=== PATIENT | female | born 1980 | race Two or more races ===

== ENCOUNTER 2021-06-14 19:15 | Inpatient (IN) | payer OTHER ==
[2021-06-14] VITALS (8 sets, daily range): BP systolic 147–163; BP diastolic 9–90
[~2021-06-14] VITALS: Ht 165.1 cm; Wt 154.2 kg
[2021-06-14] MEDS: STERILE WATER for RESP 1,000 ML BAG. INH PRN (19:30)
--- NOTE | 2021-06-14 19:30 | NUR ---
Patient admitted to room 102 at 1900 via gurney accompanied by flight RNs x2; patient transferred from [facility] ED. Patient's primary language is Slovak but does understand and speak some Danish. Patient is alert/orientedx4, denies pain but does complain of shortness of breath with rest and activity. O2 saturation mid 80's on 100% NRB at 15L with respiratory rate 40's; flight RNs stated patient was saturating mid 90's during the flight and ambulance travel. Patient has oconnell catheter which was placed at previous hospital. Called patient's sister Gifty to update on condition and review past medical history. Since patient is so tachypic at rest, all admission history obtained from previous hospital notes and sister. Patient was able to state that she had not received Covid vaccine and per hospital notes, patient had tested positive for Covid approximately one week ago. Patient oriented to ICU routine, room, Nursing call light, TV/Bed control, diet, activity (BR), and POC. Patient does nod in understanding. Dr Bocanegra at bedside on admission. See admission information and assessment.
[2021-06-14] MEDS ORDERED: PIP/TAZO PER PHARMACY MC PRN (21:30)
[2021-06-14] MEDS: KETOROLAC 30 MG/ML VIAL. IVP SCH (21:32)
[2021-06-14] MEDS: methylPREDNISolone SOD SUCC PF 125 MG/2 ML VIAL. IV SCH (21:46)
[2021-06-14] MEDS ORDERED: PIPERACILLIN/TAZOBACTAM 3.375 GM in IV NORMAL SALINE 50ML 50 ML IV ONE (22:00)
[2021-06-14] MEDS ORDERED: PIPERACILLIN/TAZOBACTAM 3.375 GM in IV NORMAL SALINE 50ML 50 ML IV SCH (22:00)
[2021-06-14 22:10] LABS: BASO % 1 % (0-3); EOS % 0 % (0-3); HEMATOCRIT 33.4 % (36.0-47.0); HEMOGLOBIN 11.1 g/dL (12.0-15.5); LYMPH # 0.7 x10^3/uL (1.0-4.8); LYMPH % 11 % (24-48); MEAN CORPUSCULAR HEMOGLOBIN 24 pg (25-35); MEAN CORPUSCULAR HGB CONC 33 g/dL (31-37); MEAN CORPUSCULAR VOLUME 73 fL (79-100); MONO # 0.4 x10^3/uL (0.0-1.1); MONO % 6 % (0-9); NEUT # 5.1 x10^3/uL (1.8-7.7); NEUT % 83 % (31-73); PLATELET COUNT 366 x10^3/uL (140-400); RED BLOOD COUNT 4.59 x10^6/uL (3.50-5.40); RED CELL DISTRIBUTION WIDTH 16.2 % (11.5-14.5); WHITE BLOOD COUNT 6.2 x10^3/uL (4.0-11.0)
[2021-06-14] MEDS ORDERED: SENNOSIDES 8.6 MG TABLET PO PRN (22:15)
[2021-06-14] MEDS ORDERED: DOCUSATE SODIUM 100 MG CAPSULE. PO PRN (22:15)
[2021-06-14] MEDS ORDERED: ONDANSETRON PF 4 MG/2 ML VIAL. IVP PRN (22:15)
[2021-06-14] MEDS ORDERED: DEXTROSE 50% 25 GM / 50ML DISP.SYRIN. IV PRN (22:15)
[2021-06-14] MEDS ORDERED: PROCHLORPERAZINE 10 MG/2 ML VIAL. IV PRN (22:15)
--- NOTE | 2021-06-14 22:16 | PDOC1 ---
History and Physical Date of Service: DOS: DATE: 06/14/21 TIME: 22:11 Chief Complaint: Chief Complain: Shortness of breath History of Present Illness: HPI: Patient is a transfer from [facility] in [facility] 40-year-old female with past medical history of diabetes, hypertension, dyslipidemia and morbid obesity who complains of shortness of breath 1 week ago and went to urgent care and found out that she was positive for Covid. She came in at 5:00 in the morning at [facility] is very hypoxic and was found to be her oxygen saturation was 68% she was put on a nonrebreather 15 L and she was improved to 90 to 93%. Patient is [id number]. Patient is a poor historian. She does not know what kind of medication she takes for her medical history. Past Medical/Surgical History: PMH/PSH: Past medical history of diabetes, hypertension, dyslipidemia and obesity. Allergies: Allergies: Coded Allergies: No Known Drug Allergies (Unverified , 06/14/21) Family History: Family History: Reviewed with no relevant findings. Social History: Social History: Denies alcohol, tobacco or drug abuse. Current Medications: Current Medications Current Medications Methylprednisolone Sodium Succinate (SOLU-Medrol 125MG VIAL) 125 mg Q8HRS IV Last administered on 06/14/21at 21:46; Start 06/14/21 at 22:00 Benzonatate (Tessalon Perle) 100 mg Q6HRS PO ; Start 06/15/21 at 00:00 Ketorolac Tromethamine (Toradol 30mg Vial) 30 mg Q8HRS IVP Last administered on 06/14/21at 21:32; Start 06/14/21 at 22:00; Stop 06/17/21 at 14:01 Piperacillin Sod/ Tazobactam Sod 3.375 gm/Sodium Chloride 50 ml @ 100 mls/hr Q8HRS IV ; Start 06/14/21 at 22:00; Status UNV Albuterol/ Ipratropium (Duoneb) 3 ml QID INH ; Start 06/15/21 at 09:00; Status UNV Albuterol/ Ipratropium (Combivent Respimat 20-100 Mcg) 1 puff RTQID INH ; Start 06/15/21 at 08:00 Sterile Water (WATER for RESP) 1,000 ml CONT PRN INH VIA VAPOTHERM DEVICE; Start 06/14/21 at 21:30 Remdesivir 100 mg/ Sodium Chloride 230 ml @ 460 mls/hr Q24H IV ; Start 06/15/21 at 09:00; Stop 06/23/21 at 09:29 Piperacillin Sod/ Tazobactam Sod (Zosyn Per Pharmacy) 1 each PRN DAILY PRN [facility] SEE COMMENTS; Start 06/14/21 at 21:30 Piperacillin Sod/ Tazobactam Sod 3.375 gm/Sodium Chloride 50 ml @ 100 mls/hr 1X ONCE IV Last administered on 06/14/21at 21:52; Start 06/14/21 at 22:00; Stop 06/14/21 at 22:29 ROS: Review of Systems Review of System REVIEW OF SYSTEMS: GENERAL: Denies weakness SKIN: No bruising, hair changes or rashes. EYES: No blurred, double or loss of vision. NOSE AND THROAT: No history of nosebleeds, hoarseness or sore throat. HEART: No history of palpitations, chest pain or shortness of breath on exertion. LUNGS: Positive for shortness of breath and cough GASTROINTESTINAL: Denies changes in appetite, nausea, vomiting, diarrhea or constipation. GENITOURINARY: No history of frequency, urgency, hesitancy or nocturia. NEUROLOGIC: Denies history of numbness, tingling, or tremor. PSYCHIATRIC: No history of panic, anxiety or depression. ENDOCRINE: No history of heat or cold intolerance, polyuria or polydipsia. EXTREMITIES: Denies joint pain, pain on walking or stiffness. Physical Exam: Vital Signs: Vital Signs Date Time Temp Pulse Resp B/P (MAP) Pulse Ox O2 Delivery O2 Flow Rate FiO2 06/14/21 20:54 98 VAPOTHERM/HFNC 25.0 Physcial Exam: General: Well developed, well nourished, no acute distress, well appearing. Morbidly obese HEENT: Pupils equally round and reactive to light, EOMI, no discharge, normal conjunctiva Neck: Supple, no nuchal rigidity, no JVD, trachea midline, no tenderness Cardiac: RRR, no murmurs, no gallops, no rubs Chest/Lungs: CTAB, no wheeze, no rhonchi, positive for crackles bilaterally Abdomen: soft, non-distended, no guarding, no peritoneal signs, non-tender Back: No tenderness Extremities: no edema, pulses intact, non-tender,capillary refill <3 sec bilateral upper and lower extremities, Neuro: Alert and oriented x 4, no focal deficits, normal speech Labs: Labs: Pending lab draw Images: Images Patient did have CT of her chest that was completed but I do not have final reads of that with her records. Pending review of her records. Assessment/Plan Assessment/Plan Acute hypoxic respiratory failure requiring BiPAP COVID-19 pneumonia Morbid obesity History of diabetes mellitus type 2 History of hypertension Admit to ICU for further management Pulmonology consult Continue IV thiamine and vitamin C IV Solu-Medrol every 8 Pending ferritin, LDH, CRP, D-dimer labs Titrate O2 supplementation to maintain O2 saturation greater than 92% Initiate IV Remdesivir Lovenox for DVT prophylaxis Protonix GI prophylaxis ADA diet Full code Discussed with RN and SW Disposition ICU management as above Surrogate decision maker is the undesignated at this time A total of 50 minutes of critical care time was spent in reviewing chart, labs, and images. Discussed with RN and SW. Justifications for Admission Other Justification Acute hypoxic respiratory failure and Covid pneumonia REENA MORA MD Jun 14, 2021 22:16
[2021-06-14 22:35] LABS: C-REACTIVE PROTEIN 222.5 mg/L (0-3.3)
[2021-06-14 22:36] LABS: ALBUMIN 2.2 g/dL (3.4-5.0); ALBUMIN/GLOBULIN RATIO 0.4 (1.0-1.7); CALCIUM 8.4 mg/dL (8.5-10.1); CREATININE 0.5 mg/dL (0.6-1.0); GFR 136.6; MAGNESIUM 2.3 mg/dL (1.8-2.4); POTASSIUM 3.9 mmol/L (3.5-5.1); TOTAL BILIRUBIN 0.3 mg/dL (0.2-1.0); TOTAL PROTEIN 7.1 g/dL (6.4-8.2)
[2021-06-14] MEDS ORDERED: ENOXAPARIN 40 MG/0.4 ML SYRINGE. SQ SCH (23:00)
[2021-06-14] MEDS: BENZONATATE 100 MG CAPSULE. PO SCH (23:37)
[2021-06-15] VITALS (22 sets, daily range): BP systolic 112–176; BP diastolic 52–86
[2021-06-15] MEDS: STERILE WATER for RESP 1,000 ML BAG. INH PRN ×2 (04:12→15:45)
[2021-06-15] MEDS: BENZONATATE 100 MG CAPSULE. PO SCH ×4 (06:16→23:30)
[2021-06-15] MEDS: methylPREDNISolone SOD SUCC PF 125 MG/2 ML VIAL. IV SCH ×3 (06:16→21:38)
[2021-06-15] MEDS: KETOROLAC 30 MG/ML VIAL. IVP SCH ×3 (06:16→21:38)
[2021-06-15] MEDS: PIPERACILLIN/TAZOBACTAM 3.375 GM in IV NORMAL SALINE 50ML 50 ML IV SCH ×4 (06:17→23:28)
[2021-06-15] MEDS ORDERED: GABA300C18 PO (06:45)
[2021-06-15] MEDS ORDERED: SEMA0.25 SQ (06:45)
[2021-06-15] MEDS ORDERED: METF500T16 PO (06:45)
[2021-06-15] MEDS ORDERED: LISI-517 PO (06:45)
--- NOTE | 2021-06-15 06:55 | PDOC2 ---
Pulmonary Consultation DATE: 06/15/21 TIME: 06:55 COVID-19 pneumonia, acute hypoxic respiratory failure This is a pleasant 40-year-old speaking female who is transferred to [facility] from [facility] for worsening hypoxia. She is a known COVID-19 patient. She has a past medical history of diabetes, hypertension, hyperlipidemia and obesity. While at [facility] she became very hypoxic with oxygen saturations in the low 60s. He was placed on 100% nonrebreather with improved oxygenation to the low 90s. She is overall a very poor historian. We've been asked to see the patient for a pulmonary consultation secondary to acute hypoxic respiratory failure secondary to ARDS/COVID-19 infection. She tested positive for COVID-19 infection approximately 1 week prior to admission at [facility]. He has not received any COVID-19 vaccination. At [facility] she had a CT of chest without contrast which showed multifocal diffusely scattered grass ground opacities infiltrates with within all lobes of the lungs. On examination she is resting comfortably 100% nonrebreather with additional nasal cannula oxygen. She reports shortness of breath, nonproductive cough, generalized malaise and fatigue. She denies any headache, dizziness, abdominal pain, nausea, vomiting, changes in bowel or bladder. Medical History Diabetes type 2, hypertension, hyperlipidemia, obesity, COVID-19 infection Surgical History Denies Medications Current Medications Methylprednisolone Sodium Succinate (SOLU-Medrol 125MG VIAL) 125 mg Q8HRS IV Last administered on 06/15/21at 06:16; Start 06/14/21 at 22:00 Benzonatate (Tessalon Perle) 100 mg Q6HRS PO Last administered on 06/15/21at 06:16; Start 06/15/21 at 00:00 Ketorolac Tromethamine (Toradol 30mg Vial) 30 mg Q8HRS IVP Last administered on 06/15/21at 06:16; Start 06/14/21 at 22:00; Stop 06/17/21 at 14:01 Piperacillin Sod/ Tazobactam Sod 3.375 gm/Sodium Chloride 50 ml @ 100 mls/hr Q8HRS IV ; Start 06/14/21 at 22:00; Status UNV Albuterol/ Ipratropium (Duoneb) 3 ml QID INH ; Start 06/15/21 at 09:00; Status UNV Albuterol/ Ipratropium (Combivent Respimat 20-100 Mcg) 1 puff RTQID INH ; Start 06/15/21 at 08:00 Sterile Water (WATER for RESP) 1,000 ml CONT PRN INH VIA VAPOTHERM DEVICE Last administered on 06/15/21at 04:12; Start 06/14/21 at 21:30 Remdesivir 100 mg/ Sodium Chloride 230 ml @ 460 mls/hr Q24H IV ; Start 06/15/21 at 09:00; Stop 06/23/21 at 09:29 Piperacillin Sod/ Tazobactam Sod (Zosyn Per Pharmacy) 1 each PRN DAILY PRN MC SEE COMMENTS; Start 06/14/21 at 21:30 Piperacillin Sod/ Tazobactam Sod 3.375 gm/Sodium Chloride 50 ml @ 100 mls/hr 1X ONCE IV Last administered on 06/14/21at 21:52; Start 06/14/21 at 22:00; Stop 06/14/21 at 22:29; Status DC Ascorbic Acid (Vitamin C) 3,000 mg TID PO ; Start 06/15/21 at 09:00 Thiamine Mononitrate (Vitamin B-1) 300 mg DAILY PO ; Start 06/15/21 at 09:00 Zinc Sulfate (Orazinc) 220 mg DAILY PO ; Start 06/15/21 at 09:00 Sennosides (Senna) 17.2 mg PRN BID PRN PO CONSTIPATION 1ST CHOICE; Start 06/14/21 at 22:15 Docusate Sodium (Colace) 100 mg PRN DAILY PRN PO HARD STOOLS; Start 06/14/21 at 22:15 Ondansetron HCl (Zofran) 4 mg PRN Q6HRS PRN IVP NAUSEA/VOMITING 1ST CHOICE; Start 06/14/21 at 22:15 Dextrose (Dextrose 50%-Water Syringe) 12.5 gm PRN Q15MIN PRN IV SEE COMMENTS; Start 06/14/21 at 22:15 Acetaminophen (Tylenol) 650 mg PRN Q4HRS PRN PO TEMP OVER 100.4F OR MILD PAIN; Start 06/14/21 at 22:15 Enoxaparin Sodium (Lovenox 40mg Syringe) 40 mg Q24H SQ Last administered on 06/14/21at 23:22; Start 06/14/21 at 23:00 Prochlorperazine Edisylate (Compazine) 10 mg PRN Q6HRS PRN IV NAUSEA/VOMITING 2ND CHOICE; Start 06/14/21 at 22:15 Pantoprazole Sodium (Protonix) 40 mg DAILYAC PO ; Start 06/15/21 at 07:30 Piperacillin Sod/ Tazobactam Sod 3.375 gm/Sodium Chloride 50 ml @ 100 mls/hr Q6HRS IV Last administered on 06/15/21at 06:17; Start 06/15/21 at 06:00 Active Scripts Active Reported Gabapentin (Gabapentin) 300 Mg Capsule 300 Mg PO TID Gabapentin (Gabapentin) 300 Mg Capsule 300 Mg PO TID Lisinopril 5 Mg Tablet 1 Tab PO DAILY Metformin Hcl 500 Mg Tablet 500 Mg PO BIDWMEALS Ozempic (Semaglutide) 0.25 Mg/0.2 Ml Pen.injctr 0.25 Mg SQ WEEKLY Allergies Allergies Coded Allergies Type Severity Reaction Last Updated Verified No Known Drug Allergies 06/14/21 No Social History She denies any tobacco use, alcohol use or recreational drug use. Family History Reviewed noncontributory to admission System Review A 12 point review of systems is reviewed with the patient is negative except for pertinent positives in the HPI. Vital Signs Vital Signs Date Time Temp Pulse Resp B/P (MAP) Pulse Ox O2 Delivery O2 Flow Rate FiO2 06/15/21 06:00 50 36 145/70 (95) 76 Vapotherm 40.0 06/15/21 04:00 98.4 98.4 Last Labs Laboratory Tests Test 06/14/21 21:27 06/14/21 22:00 White Blood Count 6.2 x10^3/uL (4.0-11.0) Red Blood Count 4.59 x10^6/uL (3.50-5.40) Hemoglobin 11.1 g/dL (12.0-15.5) Hematocrit 33.4 % (36.0-47.0) Mean Corpuscular Volume 73 fL (79-100) Mean Corpuscular Hemoglobin 24 pg (25-35) Mean Corpuscular Hemoglobin Concent 33 g/dL (31-37) Red Cell Distribution Width 16.2 % (11.5-14.5) Platelet Count 366 x10^3/uL (140-400) Neutrophils (%) (Auto) 83 % (31-73) Lymphocytes (%) (Auto) 11 % (24-48) Monocytes (%) (Auto) 6 % (0-9) Eosinophils (%) (Auto) 0 % (0-3) Basophils (%) (Auto) 1 % (0-3) Neutrophils # (Auto) 5.1 x10^3/uL (1.8-7.7) Lymphocytes # (Auto) 0.7 x10^3/uL (1.0-4.8) Monocytes # (Auto) 0.4 x10^3/uL (0.0-1.1) Eosinophils # (Auto) 0.0 x10^3/uL (0.0-0.7) Basophils # (Auto) 0.0 x10^3/uL (0.0-0.2) Sodium Level 142 mmol/L (136-145) Potassium Level 3.9 mmol/L (3.5-5.1) Chloride Level 106 mmol/L (98-107) Carbon Dioxide Level 29 mmol/L (21-32) Anion Gap 7 (6-14) Blood Urea Nitrogen 9 mg/dL (7-20) Creatinine 0.5 mg/dL (0.6-1.0) Estimated GFR (Cockcroft-Gault) 136.6 BUN/Creatinine Ratio 18 (6-20) Glucose Level 121 mg/dL (70-99) Calcium Level 8.4 mg/dL (8.5-10.1) Magnesium Level 2.3 mg/dL (1.8-2.4) Total Bilirubin 0.3 mg/dL (0.2-1.0) Aspartate Amino Transf (AST/SGOT) 55 U/L (15-37) Alanine Aminotransferase (ALT/SGPT) 33 U/L (14-59) Alkaline Phosphatase 83 U/L (46-116) Total Protein 7.1 g/dL (6.4-8.2) Albumin 2.2 g/dL (3.4-5.0) Albumin/Globulin Ratio 0.4 (1.0-1.7) Lactate Dehydrogenase 490 U/L (81-234) C-Reactive Protein, Quantitative 222.5 mg/L (0-3.3) Exam Comments Physcial Exam: General: Well developed, well nourished, no acute distress, well appearing. obese HEENT: Pupils equally round and reactive to light, EOMI, no discharge, normal conjunctiva Neck: Supple, no nuchal rigidity, no JVD, trachea midline, no tenderness Cardiac: RRR, no murmurs, no gallops, no rubs Chest/Lungs: crackles bilaterally Abdomen: soft, non-distended, no guarding, no peritoneal signs, non-tender Extremities: no edema, pulses intact, non-tender Neuro: Alert and oriented x 4, no focal deficits, normal speech Assessment 1. acute hypoxic respiratory failure secondary to ARDS/COVID-[address] of chest secondary to COVID-19 infection/ARDS 3. Diabetes type 2 with hyperglycemia 4. Hypertension 5. Hyperlipdemia 6. Obesity Plan Recommendations: Continue supplemental oxygen to classroom saturations greater than 92%, currently on nonrebreather with additional nasal cannula oxygen, Vapotherm if needed Monitor respiratory status closely for the need for intubation Continue steroids will need full 10-day course, with slow taper Continue antibiotics, currently on Zosyn continue remdesivir for full course Continue zinc/vitamin C Diabetes per PCP Hypertension Per PCP DVT/GI prophylaxis: Lovenox Discussed with RN and RT Thank you for your consultation with this patient we will continue to follow along VAISHALI ESQUEDA APRN Jun 15, 2021 06:55
[2021-06-15] MEDS: PANTOPRAZOLE 40 MG TABLET.DR. PO SCH (08:53)
[2021-06-15] MEDS: ASCORBIC ACID 1,000 MG TABLET PO SCH ×3 (08:53→20:31)
[2021-06-15] MEDS: THIAMINE 100 MG TABLET. PO SCH (08:53)
[2021-06-15] MEDS: ZINC SULFATE 220 MG CAPSULE. PO SCH (08:53)
[2021-06-15] MEDS: REMDESIVIR 100mg in NORMAL SALINE 250ML X 9 DAYS IV SCH (08:54)
[2021-06-15] MEDS: GABAPENTIN 300 MG CAPSULE. PO SCH ×3 (08:55→20:31)
[2021-06-15] MEDS: LISINOPRIL 5 MG TABLET. PO SCH (08:56)
[2021-06-15] MEDS ORDERED: IPRATRPIUM/ALBUTEROL 0.5/2.5MG 3 ML NEBU. INH SCH (09:00)
[2021-06-15] MEDS: IPRATROPIUM/ALBUTEROL 20/100mcg/INH INHALER. INH SCH ×4 (09:03→20:00)
[2021-06-15 09:07] LABS: BASO % 0 % (0-3); EOS % 0 % (0-3); HEMOGLOBIN 11.4 g/dL (12.0-15.5); LYMPH # 0.8 x10^3/uL (1.0-4.8); LYMPH % 10 % (24-48); MEAN CORPUSCULAR HEMOGLOBIN 24 pg (25-35); MEAN CORPUSCULAR HGB CONC 33 g/dL (31-37); MEAN CORPUSCULAR VOLUME 73 fL (79-100); MONO # 0.2 x10^3/uL (0.0-1.1); MONO % 3 % (0-9); NEUT # 6.3 x10^3/uL (1.8-7.7); NEUT % 87 % (31-73); PLATELET COUNT 384 x10^3/uL (140-400); RED BLOOD COUNT 4.81 x10^6/uL (3.50-5.40); RED CELL DISTRIBUTION WIDTH 16.2 % (11.5-14.5); WHITE BLOOD COUNT 7.3 x10^3/uL (4.0-11.0)
[2021-06-15 09:49] LABS: CALCIUM 8.4 mg/dL (8.5-10.1); CREATININE 0.5 mg/dL (0.6-1.0); GFR 136.6; MAGNESIUM 2.2 mg/dL (1.8-2.4); PHOSPHORUS 2.6 mg/dL (2.6-4.7); POTASSIUM 3.7 mmol/L (3.5-5.1)
[2021-06-15] MEDS ORDERED: DEXTROSE 50% 25 GM / 50ML DISP.SYRIN. IV PRN (11:15)
--- NOTE | 2021-06-15 11:41 | PDOC ---
[employer] PROGRESS NOTE Date of Service DOS: DATE: 06/15/21 TIME: 11:38 Chief Complaint Chief Complaint SOB History of Present Illness History of Present Illness Patient is a transfer from [facility] in [facility] 40-year-old female with past medical history of diabetes, hypertension, dyslipidemia and morbid obesity who complains of shortness of breath 1 week ago and went to urgent care and found out that she was positive for Covid. She came in at 5:00 in the morning at [facility] is very hypoxic and was found to be her oxygen saturation was 68% she was put on a nonrebreather 15 L and she was improved to 90 to 93%. Patient is [id number]. Patient is a poor historian. She does not know what kind of medication she takes for her medical history. 06/15/21 Patient seen and examined at bedside in the ICU. She was face time talking with family members. She was still on nonrebreather. Reports that she feels improved from yesterday. Otherwise no complaints. Pulmonary consulted. Plan of care discussed with bedside nurse. Vitals/I&O Vitals/I&O: Vital Signs Date Time Temp Pulse Resp B/P (MAP) Pulse Ox O2 Delivery O2 Flow Rate FiO2 06/15/21 10:00 62 40 133/63 (86) 95 Vapotherm 40.0 06/15/21 08:00 97.4 97.4 I & O 06/14/21 06/14/21 06/15/21 15:00 23:00 07:00 Intake Total 50 ml 900 ml Output Total 450 ml 310 ml Balance -400 ml 590 ml Physical Exam General: Alert, Oriented X3, Cooperative Heart: Regular rate, Normal S1, Normal S2 Lungs: Other (coarse) Abdomen: Normal bowel sounds, Soft Extremities: No clubbing, No edema, Normal pulses Skin: No rashes, No significant lesion Labs Labs: Laboratory Tests Test 06/14/21 21:27 06/14/21 22:00 06/15/21 08:45 White Blood Count 6.2 x10^3/uL (4.0-11.0) 7.3 x10^3/uL (4.0-11.0) Red Blood Count 4.59 x10^6/uL (3.50-5.40) 4.81 x10^6/uL (3.50-5.40) Hemoglobin 11.1 g/dL (12.0-15.5) 11.4 g/dL (12.0-15.5) Hematocrit 33.4 % (36.0-47.0) 35.0 % (36.0-47.0) Mean Corpuscular Volume 73 fL (79-100) 73 fL (79-100) Mean Corpuscular Hemoglobin 24 pg (25-35) 24 pg (25-35) Mean Corpuscular Hemoglobin Concent 33 g/dL (31-37) 33 g/dL (31-37) Red Cell Distribution Width 16.2 % (11.5-14.5) 16.2 % (11.5-14.5) Platelet Count 366 x10^3/uL (140-400) 384 x10^3/uL (140-400) Neutrophils (%) (Auto) 83 % (31-73) 87 % (31-73) Lymphocytes (%) (Auto) 11 % (24-48) 10 % (24-48) Monocytes (%) (Auto) 6 % (0-9) 3 % (0-9) Eosinophils (%) (Auto) 0 % (0-3) 0 % (0-3) Basophils (%) (Auto) 1 % (0-3) 0 % (0-3) Neutrophils # (Auto) 5.1 x10^3/uL (1.8-7.7) 6.3 x10^3/uL (1.8-7.7) Lymphocytes # (Auto) 0.7 x10^3/uL (1.0-4.8) 0.8 x10^3/uL (1.0-4.8) Monocytes # (Auto) 0.4 x10^3/uL (0.0-1.1) 0.2 x10^3/uL (0.0-1.1) Eosinophils # (Auto) 0.0 x10^3/uL (0.0-0.7) 0.0 x10^3/uL (0.0-0.7) Basophils # (Auto) 0.0 x10^3/uL (0.0-0.2) 0.0 x10^3/uL (0.0-0.2) Sodium Level 142 mmol/L (136-145) 140 mmol/L (136-145) Potassium Level 3.9 mmol/L (3.5-5.1) 3.7 mmol/L (3.5-5.1) Chloride Level 106 mmol/L (98-107) 105 mmol/L (98-107) Carbon Dioxide Level 29 mmol/L (21-32) 27 mmol/L (21-32) Anion Gap 7 (6-14) 8 (6-14) Blood Urea Nitrogen 9 mg/dL (7-20) 12 mg/dL (7-20) Creatinine 0.5 mg/dL (0.6-1.0) 0.5 mg/dL (0.6-1.0) Estimated GFR (Cockcroft-Gault) 136.6 136.6 BUN/Creatinine Ratio 18 (6-20) Glucose Level 121 mg/dL (70-99) 151 mg/dL (70-99) Calcium Level 8.4 mg/dL (8.5-10.1) 8.4 mg/dL (8.5-10.1) Magnesium Level 2.3 mg/dL (1.8-2.4) 2.2 mg/dL (1.8-2.4) Total Bilirubin 0.3 mg/dL (0.2-1.0) Aspartate Amino Transf (AST/SGOT) 55 U/L (15-37) Alanine Aminotransferase (ALT/SGPT) 33 U/L (14-59) Alkaline Phosphatase 83 U/L (46-116) Total Protein 7.1 g/dL (6.4-8.2) Albumin 2.2 g/dL (3.4-5.0) Albumin/Globulin Ratio 0.4 (1.0-1.7) Lactate Dehydrogenase 490 U/L (81-234) C-Reactive Protein, Quantitative 222.5 mg/L (0-3.3) Phosphorus Level 2.6 mg/dL (2.6-4.7) Review of Systems Review of Systems: Negative unless noted above Assessment and Plan Assessmemt and Plan Assessment/Plan Acute hypoxic respiratory failure requiring BiPAP COVID-19 pneumonia Morbid obesity History of diabetes mellitus type 2 History of hypertension Pulmonology consult Continue IV thiamine and vitamin C IV Solu-Medrol every 8 Continue Zosyn Titrate O2 supplementation to maintain O2 saturation greater than 92% Initiate IV Remdesivir Lovenox for DVT prophylaxis Protonix GI prophylaxis ADA diet Full code Discussed with RN and SW Disposition ICU management as above Surrogate decision maker is the undesignated at this time Comment Review of Relevant I have reviewed the following items man (where applicable) has been applied. Medications: Current Medications Medications (Trade) Dose Ordered Sig/Jun Route PRN Reason Start Time Stop Time Status Last Admin Dose Admin Methylprednisolone Sodium Succinate (SOLU-Medrol 125MG VIAL) 125 mg Q8HRS IV 06/14/21 22:00 06/15/21 06:16 Benzonatate (Tessalon Perle) 100 mg Q6HRS PO 06/15/21 00:00 06/15/21 06:16 Ketorolac Tromethamine (Toradol 30mg Vial) 30 mg Q8HRS IVP 06/14/21 22:00 06/17/21 14:01 06/15/21 06:16 Albuterol/ Ipratropium (Combivent Respimat 20-100 Mcg) 1 puff RTQID INH 06/15/21 08:00 06/15/21 09:03 Sterile Water (WATER for RESP) 1,000 ml CONT PRN INH VIA VAPOTHERM DEVICE 06/14/21 21:30 06/15/21 04:12 Remdesivir 100 mg/ Sodium Chloride 230 ml @ 460 mls/hr Q24H IV 06/15/21 09:00 06/23/21 09:29 06/15/21 08:54 Piperacillin Sod/ Tazobactam Sod 3.375 gm/Sodium Chloride 50 ml @ 100 mls/hr 1X ONCE IV 06/14/21 22:00 06/14/21 22:29 DC 06/14/21 21:52 Ascorbic Acid (Vitamin C) 3,000 mg TID PO 06/15/21 09:00 06/15/21 08:53 Thiamine Mononitrate (Vitamin B-1) 300 mg DAILY PO 06/15/21 09:00 06/15/21 08:53 Zinc Sulfate (Orazinc) 220 mg DAILY PO 06/15/21 09:00 06/15/21 08:53 Enoxaparin Sodium (Lovenox 40mg Syringe) 40 mg Q24H SQ 06/14/21 23:00 06/15/21 09:06 DC 06/14/21 23:22 Pantoprazole Sodium (Protonix) 40 mg DAILYAC PO 06/15/21 07:30 06/15/21 08:53 Piperacillin Sod/ Tazobactam Sod 3.375 gm/Sodium Chloride 50 ml @ 100 mls/hr Q6HRS IV 06/15/21 06:00 06/15/21 06:17 Gabapentin (Neurontin) 300 mg TID PO 06/15/21 09:00 06/15/21 08:55 Lisinopril (Prinivil) 5 mg DAILY PO 06/15/21 09:00 06/15/21 08:56 Justifications for Admission Other Justification Acute hypoxic respiratory failure and Covid pneumonia DUNG FRANCO MD Jun 15, 2021 11:41
[2021-06-15 12:22] LABS: % BANDS 1 % (0-9); % LYMPHS 6 % (24-48); % MONOS 1 % (0-10); % SEGS 92 % (35-66); PLT ESTIMATE ADEQUATE (ADEQUATE)
[2021-06-15] MEDS: ENOXAPARIN 40 MG/0.4 ML SYRINGE. SQ SCH ×2 (12:33→20:32)
[2021-06-15] MEDS: INSULIN LISPRO 300 UNITS/3 ML VIAL. SQ SCH ×2 (12:34→17:00)
--- NOTE | 2021-06-15 14:46 | NUR ---
SS following for discharge planning. SS reviewed pt chart and discussed with pt RN. Pt is from home and is currently on Vapotherm at 40 liters and Non-Rebreather. COVID19 positive. Pt on IV Zosyn, IV Solu-Medrol, and IV Remdesivir. Self pay. Med Assist following. SS provided [place] in Med Assist with pt's sister's contact number, . Pt's sister reported that pt's last name is Stan and pt does not have a SSN#. Pt not a citizen. She reported that pt is [place] in ethnicity. Not stable. SS will continue to follow for discharge planning.
[2021-06-15] MEDS ORDERED: FLUT16SP NS (14:49)
[2021-06-15] MEDS ORDERED: CYCL10TA2 PO (14:49)
[2021-06-15] MEDS ORDERED: FURO20TA3 PO (14:49)
[2021-06-15] MEDS ORDERED: LORA10TA3 PO (14:49)
[2021-06-15] MEDS ORDERED: MELO15TA23 PO (14:49)
[2021-06-15] MEDS: LACTOBACILLUS RHAMNOSUS GG 1 CAPSULE. PO SCH (20:31)
[2021-06-16] VITALS (24 sets, daily range): BP systolic 106–166; BP diastolic 51–86
[2021-06-16] MEDS: STERILE WATER for RESP 1,000 ML BAG. INH PRN ×2 (04:20→17:25)
--- NOTE | 2021-06-16 05:16 | RAD ---
Study: XR CHEST 1V Indication: Respiratory failure. Comparison: None. Findings: The cardiomediastinal silhouette appears prominent in size. Multifocal bilateral airspace opacities with least involvement of the left apex. No large effusion or pneumothorax. Impression: 1. Extensive bilateral airspace opacities. The appearance is suspicious for multifocal pneumonia in t he appropriate clinical setting. 2. Apparent prominence of the cardiomediastinal silhouette but accentuated by AP technique. Electronically signed by: TRA MAXWELL MD (06/16/2021 5:14 AM) [facility]
[2021-06-16] MEDS: methylPREDNISolone SOD SUCC PF 125 MG/2 ML VIAL. IV SCH ×3 (05:42→21:04)
[2021-06-16] MEDS: BENZONATATE 100 MG CAPSULE. PO SCH ×3 (05:42→17:59)
[2021-06-16] MEDS: KETOROLAC 30 MG/ML VIAL. IVP SCH ×3 (05:42→21:04)
[2021-06-16] MEDS: PIPERACILLIN/TAZOBACTAM 3.375 GM in IV NORMAL SALINE 50ML 50 ML IV SCH ×3 (05:42→17:59)
[2021-06-16 05:43] LABS: BASO % 0 % (0-3); EOS % 0 % (0-3); HEMATOCRIT 34.4 % (36.0-47.0); HEMOGLOBIN 11.2 g/dL (12.0-15.5); LYMPH % 7 % (24-48); MEAN CORPUSCULAR HEMOGLOBIN 24 pg (25-35); MEAN CORPUSCULAR HGB CONC 33 g/dL (31-37); MEAN CORPUSCULAR VOLUME 73 fL (79-100); MONO # 0.5 x10^3/uL (0.0-1.1); MONO % 4 % (0-9); NEUT # 11.7 x10^3/uL (1.8-7.7); NEUT % 89 % (31-73); PLATELET COUNT 417 x10^3/uL (140-400); RED CELL DISTRIBUTION WIDTH 16.4 % (11.5-14.5); WHITE BLOOD COUNT 13.1 x10^3/uL (4.0-11.0)
[2021-06-16 05:54] LABS: CALCIUM 8.4 mg/dL (8.5-10.1); CREATININE 0.6 mg/dL (0.6-1.0); GFR 110.7; MAGNESIUM 2.2 mg/dL (1.8-2.4); POTASSIUM 3.7 mmol/L (3.5-5.1)
[2021-06-16] MEDS: ASCORBIC ACID 1,000 MG TABLET PO SCH ×3 (08:24→20:32)
[2021-06-16] MEDS: THIAMINE 100 MG TABLET. PO SCH (08:24)
[2021-06-16] MEDS: ZINC SULFATE 220 MG CAPSULE. PO SCH (08:24)
[2021-06-16] MEDS: IPRATROPIUM/ALBUTEROL 20/100mcg/INH INHALER. INH SCH ×4 (08:25→20:32)
[2021-06-16] MEDS: GABAPENTIN 300 MG CAPSULE. PO SCH ×3 (08:25→20:32)
[2021-06-16] MEDS: PANTOPRAZOLE 40 MG TABLET.DR. PO SCH (08:25)
[2021-06-16] MEDS: LACTOBACILLUS RHAMNOSUS GG 1 CAPSULE. PO SCH ×2 (08:25→20:32)
[2021-06-16] MEDS: REMDESIVIR 100mg in NORMAL SALINE 250ML X 9 DAYS IV SCH (08:25)
[2021-06-16] MEDS: LISINOPRIL 5 MG TABLET. PO SCH (08:25)
[2021-06-16] MEDS: ENOXAPARIN 40 MG/0.4 ML SYRINGE. SQ SCH ×2 (08:26→20:33)
[2021-06-16] MEDS: INSULIN LISPRO 300 UNITS/3 ML VIAL. SQ SCH ×3 (08:44→18:00)
--- NOTE | 2021-06-16 09:19 | PDOC ---
PULMONARY PROGRESS NOTES DATE: 06/16/21 TIME: 09:16 Subjective Patient remains on 100% FiO2 via Vapotherm. Appears to be comfortable. Vitals Vital Signs Date Time Temp Pulse Resp B/P (MAP) Pulse Ox O2 Delivery O2 Flow Rate FiO2 06/16/21 08:25 54 131/65 06/16/21 08:12 94 VAPOTHERM/HFNC 40.0 06/16/21 07:00 24 06/16/21 04:00 97.0 97.0 Comments Visual exam done due to COVID-19. No paradoxical breathing. No respiratory distress. Obese no skin rash. No leg edema. General: Alert, No acute distress Labs Laboratory Tests Test 06/14/21 21:27 06/14/21 22:00 06/15/21 08:45 06/15/21 11:40 White Blood Count 6.2 x10^3/uL (4.0-11.0) 7.3 x10^3/uL (4.0-11.0) Red Blood Count 4.59 x10^6/uL (3.50-5.40) 4.81 x10^6/uL (3.50-5.40) Hemoglobin 11.1 g/dL (12.0-15.5) 11.4 g/dL (12.0-15.5) Hematocrit 33.4 % (36.0-47.0) 35.0 % (36.0-47.0) Mean Corpuscular Volume 73 fL (79-100) 73 fL (79-100) Mean Corpuscular Hemoglobin 24 pg (25-35) 24 pg (25-35) Mean Corpuscular Hemoglobin Concent 33 g/dL (31-37) 33 g/dL (31-37) Red Cell Distribution Width 16.2 % (11.5-14.5) 16.2 % (11.5-14.5) Platelet Count 366 x10^3/uL (140-400) 384 x10^3/uL (140-400) Neutrophils (%) (Auto) 83 % (31-73) 87 % (31-73) Lymphocytes (%) (Auto) 11 % (24-48) 10 % (24-48) Monocytes (%) (Auto) 6 % (0-9) 3 % (0-9) Eosinophils (%) (Auto) 0 % (0-3) 0 % (0-3) Basophils (%) (Auto) 1 % (0-3) 0 % (0-3) Neutrophils # (Auto) 5.1 x10^3/uL (1.8-7.7) 6.3 x10^3/uL (1.8-7.7) Lymphocytes # (Auto) 0.7 x10^3/uL (1.0-4.8) 0.8 x10^3/uL (1.0-4.8) Monocytes # (Auto) 0.4 x10^3/uL (0.0-1.1) 0.2 x10^3/uL (0.0-1.1) Eosinophils # (Auto) 0.0 x10^3/uL (0.0-0.7) 0.0 x10^3/uL (0.0-0.7) Basophils # (Auto) 0.0 x10^3/uL (0.0-0.2) 0.0 x10^3/uL (0.0-0.2) Sodium Level 142 mmol/L (136-145) 140 mmol/L (136-145) Potassium Level 3.9 mmol/L (3.5-5.1) 3.7 mmol/L (3.5-5.1) Chloride Level 106 mmol/L (98-107) 105 mmol/L (98-107) Carbon Dioxide Level 29 mmol/L (21-32) 27 mmol/L (21-32) Anion Gap 7 (6-14) 8 (6-14) Blood Urea Nitrogen 9 mg/dL (7-20) 12 mg/dL (7-20) Creatinine 0.5 mg/dL (0.6-1.0) 0.5 mg/dL (0.6-1.0) Estimated GFR (Cockcroft-Gault) 136.6 136.6 BUN/Creatinine Ratio 18 (6-20) Glucose Level 121 mg/dL (70-99) 151 mg/dL (70-99) Calcium Level 8.4 mg/dL (8.5-10.1) 8.4 mg/dL (8.5-10.1) Magnesium Level 2.3 mg/dL (1.8-2.4) 2.2 mg/dL (1.8-2.4) Total Bilirubin 0.3 mg/dL (0.2-1.0) Aspartate Amino Transf (AST/SGOT) 55 U/L (15-37) Alanine Aminotransferase (ALT/SGPT) 33 U/L (14-59) Alkaline Phosphatase 83 U/L (46-116) Total Protein 7.1 g/dL (6.4-8.2) Albumin 2.2 g/dL (3.4-5.0) Albumin/Globulin Ratio 0.4 (1.0-1.7) Lactate Dehydrogenase 490 U/L (81-234) C-Reactive Protein, Quantitative 222.5 mg/L (0-3.3) Procalcitonin ng/mL (0.00-0.10) Segmented Neutrophils % 92 % (35-66) Band Neutrophils % 1 % (0-9) Lymphocytes % 6 % (24-48) Monocytes % 1 % (0-10) Platelet Estimate Adequate (ADEQUATE) Phosphorus Level 2.6 mg/dL (2.6-4.7) Glucose (Fingerstick) 222 mg/dL (70-99) Test 06/15/21 18:14 06/15/21 20:36 06/16/21 05:10 06/16/21 08:33 Glucose (Fingerstick) 134 mg/dL (70-99) 223 mg/dL (70-99) 169 mg/dL (70-99) White Blood Count 13.1 x10^3/uL (4.0-11.0) Red Blood Count 4.70 x10^6/uL (3.50-5.40) Hemoglobin 11.2 g/dL (12.0-15.5) Hematocrit 34.4 % (36.0-47.0) Mean Corpuscular Volume 73 fL (79-100) Mean Corpuscular Hemoglobin 24 pg (25-35) Mean Corpuscular Hemoglobin Concent 33 g/dL (31-37) Red Cell Distribution Width 16.4 % (11.5-14.5) Platelet Count 417 x10^3/uL (140-400) Neutrophils (%) (Auto) 89 % (31-73) Lymphocytes (%) (Auto) 7 % (24-48) Monocytes (%) (Auto) 4 % (0-9) Eosinophils (%) (Auto) 0 % (0-3) Basophils (%) (Auto) 0 % (0-3) Neutrophils # (Auto) 11.7 x10^3/uL (1.8-7.7) Lymphocytes # (Auto) 1.0 x10^3/uL (1.0-4.8) Monocytes # (Auto) 0.5 x10^3/uL (0.0-1.1) Eosinophils # (Auto) 0.0 x10^3/uL (0.0-0.7) Basophils # (Auto) 0.0 x10^3/uL (0.0-0.2) Sodium Level 141 mmol/L (136-145) Potassium Level 3.7 mmol/L (3.5-5.1) Chloride Level 106 mmol/L (98-107) Carbon Dioxide Level 28 mmol/L (21-32) Anion Gap 7 (6-14) Blood Urea Nitrogen 17 mg/dL (7-20) Creatinine 0.6 mg/dL (0.6-1.0) Estimated GFR (Cockcroft-Gault) 110.7 Glucose Level 170 mg/dL (70-99) Calcium Level 8.4 mg/dL (8.5-10.1) Magnesium Level 2.2 mg/dL (1.8-2.4) Laboratory Tests Test 06/15/21 11:40 06/15/21 18:14 06/15/21 20:36 06/16/21 05:10 Glucose (Fingerstick) 222 mg/dL (70-99) 134 mg/dL (70-99) 223 mg/dL (70-99) White Blood Count 13.1 x10^3/uL (4.0-11.0) Red Blood Count 4.70 x10^6/uL (3.50-5.40) Hemoglobin 11.2 g/dL (12.0-15.5) Hematocrit 34.4 % (36.0-47.0) Mean Corpuscular Volume 73 fL (79-100) Mean Corpuscular Hemoglobin 24 pg (25-35) Mean Corpuscular Hemoglobin Concent 33 g/dL (31-37) Red Cell Distribution Width 16.4 % (11.5-14.5) Platelet Count 417 x10^3/uL (140-400) Neutrophils (%) (Auto) 89 % (31-73) Lymphocytes (%) (Auto) 7 % (24-48) Monocytes (%) (Auto) 4 % (0-9) Eosinophils (%) (Auto) 0 % (0-3) Basophils (%) (Auto) 0 % (0-3) Neutrophils # (Auto) 11.7 x10^3/uL (1.8-7.7) Lymphocytes # (Auto) 1.0 x10^3/uL (1.0-4.8) Monocytes # (Auto) 0.5 x10^3/uL (0.0-1.1) Eosinophils # (Auto) 0.0 x10^3/uL (0.0-0.7) Basophils # (Auto) 0.0 x10^3/uL (0.0-0.2) Sodium Level 141 mmol/L (136-145) Potassium Level 3.7 mmol/L (3.5-5.1) Chloride Level 106 mmol/L (98-107) Carbon Dioxide Level 28 mmol/L (21-32) Anion Gap 7 (6-14) Blood Urea Nitrogen 17 mg/dL (7-20) Creatinine 0.6 mg/dL (0.6-1.0) Estimated GFR (Cockcroft-Gault) 110.7 Glucose Level 170 mg/dL (70-99) Calcium Level 8.4 mg/dL (8.5-10.1) Magnesium Level 2.2 mg/dL (1.8-2.4) Test 06/16/21 08:33 Glucose (Fingerstick) 169 mg/dL (70-99) Medications Active Scripts Medications Dose Route/Sig Max Daily Dose Days Date Category Cyclobenzaprine Hcl 10 Mg Tablet 10 Mg PO TID 06/15/21 Reported Meloxicam 15 Mg Tablet 15 Mg PO DAILY 06/15/21 Reported Fluticasone Propionate Nasal [place] (Fluticasone Propionate) 16 Gm [place].susp 1 [place] NS DAILY 06/15/21 Reported Loratadine 10 Mg Tablet 10 Mg PO DAILY 06/15/21 Reported Furosemide 20 Mg Tablet 20 Mg PO DAILY 06/15/21 Reported Gabapentin (Gabapentin) 300 Mg Capsule 300 Mg PO TID 06/15/21 Reported Gabapentin (Gabapentin) 300 Mg Capsule 300 Mg PO TID 06/15/21 Reported Lisinopril 5 Mg Tablet 1 Tab PO DAILY 06/15/21 Reported Metformin Hcl 500 Mg Tablet 500 Mg PO BIDWMEALS 06/15/21 Reported Ozempic (Semaglutide) 0.25 Mg/0.2 Ml Pen.injctr 0.25 Mg SQ WEEKLY 06/15/21 Reported Impression . 1. Acute hypoxic respiratory failure secondary to ARDS/COVID-[address] of chest secondary to COVID-19 infection/ARDS 3. Diabetes type 2 with hyperglycemia 4. Hypertension 5. Hyperlipdemia 6. Obesity Plan . Continue current Vapotherm at 100% FiO2 and 40 L flow. Patient seems to be tolerating well Monitor respiratory status closely for the need for intubation Continue steroids will need full 10-day course, with slow taper Continue antibiotics, currently on Zosyn continue remdesivir for full course Continue zinc/vitamin C Diabetes per PCP Hypertension Per PCP DVT/GI prophylaxis: Lovenox Discussed with RN and RT Critical care time 30 minutes including review of the labs imaging studies and decision making. NICOLETTE MORALES MD Jun 16, 2021 09:19
--- NOTE | 2021-06-16 10:18 | PDOC ---
[employer] PROGRESS NOTE Date of Service DOS: DATE: 06/16/21 TIME: 10:13 Chief Complaint Chief Complaint SOB History of Present Illness History of Present Illness Patient is a transfer from [facility] in [facility] 40-year-old female with past medical history of diabetes, hypertension, dyslipidemia and morbid obesity who complains of shortness of breath 1 week ago and went to urgent care and found out that she was positive for Covid. She came in at 5:00 in the morning at [facility] is very hypoxic and was found to be her oxygen saturation was 68% she was put on a nonrebreather 15 L and she was improved to 90 to 93%. Patient is [id number]. Patient is a poor historian. She does not know what kind of medication she takes for her medical history. 06/15/21 Patient seen and examined at bedside in the ICU. She was face time talking with family members. She was still on nonrebreather. Reports that she feels improved from yesterday. Otherwise no complaints. Pulmonary consulted. Plan of care discussed with bedside nurse. 06/16/21 Patient seen and examined at bedside. On Vapotherm doing well. Stable from yesterday. No major complaints. Pulmonary following. Plan of care discussed with bedside nurse. Vitals/I&O Vitals/I&O: Vital Signs Date Time Temp Pulse Resp B/P (MAP) Pulse Ox O2 Delivery O2 Flow Rate FiO2 06/16/21 09:00 72 25 132/64 (86) 96 Vapotherm 40.0 06/16/21 08:00 98.9 98.9 I & O 06/15/21 06/15/21 06/16/21 15:00 23:00 07:00 Intake Total 425 ml 470 ml 100 ml Output Total 260 ml 205 ml 300 ml Balance 165 ml 265 ml -200 ml Physical Exam General: Alert, Oriented X3, Cooperative Heart: Regular rate, Normal S1, Normal S2 Lungs: Other (on Vapotherm) Abdomen: Normal bowel sounds, Soft Extremities: No clubbing, No edema, Normal pulses Skin: No rashes, No significant lesion Labs Labs: Laboratory Tests Test 06/15/21 11:40 06/15/21 18:14 06/15/21 20:36 06/16/21 05:10 Glucose (Fingerstick) 222 mg/dL (70-99) 134 mg/dL (70-99) 223 mg/dL (70-99) White Blood Count 13.1 x10^3/uL (4.0-11.0) Red Blood Count 4.70 x10^6/uL (3.50-5.40) Hemoglobin 11.2 g/dL (12.0-15.5) Hematocrit 34.4 % (36.0-47.0) Mean Corpuscular Volume 73 fL (79-100) Mean Corpuscular Hemoglobin 24 pg (25-35) Mean Corpuscular Hemoglobin Concent 33 g/dL (31-37) Red Cell Distribution Width 16.4 % (11.5-14.5) Platelet Count 417 x10^3/uL (140-400) Neutrophils (%) (Auto) 89 % (31-73) Lymphocytes (%) (Auto) 7 % (24-48) Monocytes (%) (Auto) 4 % (0-9) Eosinophils (%) (Auto) 0 % (0-3) Basophils (%) (Auto) 0 % (0-3) Neutrophils # (Auto) 11.7 x10^3/uL (1.8-7.7) Lymphocytes # (Auto) 1.0 x10^3/uL (1.0-4.8) Monocytes # (Auto) 0.5 x10^3/uL (0.0-1.1) Eosinophils # (Auto) 0.0 x10^3/uL (0.0-0.7) Basophils # (Auto) 0.0 x10^3/uL (0.0-0.2) Sodium Level 141 mmol/L (136-145) Potassium Level 3.7 mmol/L (3.5-5.1) Chloride Level 106 mmol/L (98-107) Carbon Dioxide Level 28 mmol/L (21-32) Anion Gap 7 (6-14) Blood Urea Nitrogen 17 mg/dL (7-20) Creatinine 0.6 mg/dL (0.6-1.0) Estimated GFR (Cockcroft-Gault) 110.7 Glucose Level 170 mg/dL (70-99) Calcium Level 8.4 mg/dL (8.5-10.1) Magnesium Level 2.2 mg/dL (1.8-2.4) Test 06/16/21 08:33 Glucose (Fingerstick) 169 mg/dL (70-99) Assessment and Plan Assessmemt and Plan Assessmemt and Plan Assessment/Plan Acute hypoxic respiratory failure requiring BiPAP COVID-19 pneumonia Morbid obesity History of diabetes mellitus type 2 History of hypertension Pulmonology consult Continue IV thiamine and vitamin C IV Solu-Medrol every 8 Continue Zosyn Titrate O2 supplementation to maintain O2 saturation greater than 92% Initiate IV Remdesivir Lovenox for DVT prophylaxis Protonix GI prophylaxis ADA diet Full code Discussed with RN and SW Disposition ICU management as above Surrogate decision maker is the undesignated at this time Comment Review of Relevant I have reviewed the following items man (where applicable) has been applied. Medications: Current Medications Medications (Trade) Dose Ordered Sig/Jun Route PRN Reason Start Time Stop Time Status Last Admin Dose Admin Insulin Human Lispro (HumaLOG) 0-5 UNITS TIDWMEALS SQ 06/15/21 12:00 06/16/21 08:44 Lactobacillus Rhamnosus (Culturelle) 1 cap BID PO 06/15/21 21:00 06/16/21 08:25 Justifications for Admission Other Justification Acute hypoxic respiratory failure and Covid pneumonia DUNG FRANCO MD Jun 16, 2021 10:18
--- NOTE | 2021-06-16 15:22 | NUR ---
SS following up with discharge planning. SS reviewed pt chart and discussed with pt RN. Pt is currently on Vapotherm at 35 liters. COVID19 positive. Pt on IV Remdesivir, IV Zosyn, and IV Solu-Medrol. Self pay. Med Assist following. SS will continue to follow for discharge planning.
[2021-06-17] VITALS (24 sets, daily range): BP systolic 129–179; BP diastolic 56–84
[2021-06-17] MEDS: PIPERACILLIN/TAZOBACTAM 3.375 GM in IV NORMAL SALINE 50ML 50 ML IV SCH ×4 (00:05→17:40)
[2021-06-17] MEDS: BENZONATATE 100 MG CAPSULE. PO SCH ×4 (00:05→17:25)
--- NOTE | 2021-06-17 04:00 | RAD ---
Study: XR CHEST 1V Indication: PICC line verification. Comparison: 06/16/2021 Findings: Right-sided PICC with the tip projecting at the distal SVC/superior cavoatrial junction. The cardiomediastinal silhouette is unchanged and again appears somewhat prominent in size. Persisten ce of diffuse airspace infiltrates with relative apical sparing on the left. No newly seen pleural ef fusion or pneumothorax. Impression: 1. Right-sided PICC with the tip projecting near the superior cavoatrial junction. 2. Unchanged extensive bilateral airspace infiltrates. Electronically signed by: TRA MAXWELL MD (06/17/2021 3:58 AM) [facility]
[2021-06-17] MEDS: KETOROLAC 30 MG/ML VIAL. IVP SCH ×2 (05:54→14:10)
[2021-06-17] MEDS: methylPREDNISolone SOD SUCC PF 125 MG/2 ML VIAL. IV SCH ×3 (05:55→20:27)
[2021-06-17 06:36] LABS: BASO % 0 % (0-3); EOS % 0 % (0-3); HEMATOCRIT 34.6 % (36.0-47.0); HEMOGLOBIN 11.1 g/dL (12.0-15.5); LYMPH # 0.7 x10^3/uL (1.0-4.8); LYMPH % 5 % (24-48); MEAN CORPUSCULAR HEMOGLOBIN 24 pg (25-35); MEAN CORPUSCULAR HGB CONC 32 g/dL (31-37); MEAN CORPUSCULAR VOLUME 73 fL (79-100); MONO # 0.5 x10^3/uL (0.0-1.1); MONO % 4 % (0-9); NEUT # 13.2 x10^3/uL (1.8-7.7); NEUT % 91 % (31-73); PLATELET COUNT 417 x10^3/uL (140-400); RED BLOOD COUNT 4.72 x10^6/uL (3.50-5.40); RED CELL DISTRIBUTION WIDTH 16.3 % (11.5-14.5); WHITE BLOOD COUNT 14.4 x10^3/uL (4.0-11.0)
[2021-06-17 06:53] LABS: CALCIUM 8.4 mg/dL (8.5-10.1); CREATININE 0.6 mg/dL (0.6-1.0); GFR 110.7; MAGNESIUM 2.3 mg/dL (1.8-2.4); POTASSIUM 3.8 mmol/L (3.5-5.1)
[2021-06-17] MEDS: PANTOPRAZOLE 40 MG TABLET.DR. PO SCH (08:16)
[2021-06-17] MEDS: IPRATROPIUM/ALBUTEROL 20/100mcg/INH INHALER. INH SCH ×4 (08:16→20:25)
[2021-06-17] MEDS: ASCORBIC ACID 1,000 MG TABLET PO SCH ×3 (08:17→20:26)
[2021-06-17] MEDS: LACTOBACILLUS RHAMNOSUS GG 1 CAPSULE. PO SCH ×2 (08:17→20:26)
[2021-06-17] MEDS: ZINC SULFATE 220 MG CAPSULE. PO SCH (08:17)
[2021-06-17] MEDS: GABAPENTIN 300 MG CAPSULE. PO SCH ×3 (08:17→20:26)
[2021-06-17] MEDS: LISINOPRIL 5 MG TABLET. PO SCH (08:17)
[2021-06-17] MEDS: THIAMINE 100 MG TABLET. PO SCH (08:17)
[2021-06-17] MEDS: INSULIN LISPRO 300 UNITS/3 ML VIAL. SQ SCH ×3 (08:22→17:40)
[2021-06-17] MEDS: STERILE WATER for RESP 1,000 ML BAG. INH PRN (09:10)
--- NOTE | 2021-06-17 09:30 | PDOC ---
PULMONARY PROGRESS NOTES DATE: 06/17/21 TIME: 09:28 Subjective Patient down to 80% FiO2 via Vapotherm. Appears to be comfortable. Vitals Vital Signs Date Time Temp Pulse Resp B/P (MAP) Pulse Ox O2 Delivery O2 Flow Rate FiO2 06/17/21 08:17 61 155/64 06/17/21 07:35 91 VAPOTHERM/HFNC 30.0 06/17/21 07:00 34 06/17/21 04:00 98.9 98.9 Comments Visual exam done due to COVID-19. No paradoxical breathing. No respiratory distress. Obese no skin rash. No leg edema. General: Alert, No acute distress Labs Laboratory Tests Test 06/15/21 11:40 06/15/21 18:14 06/15/21 20:36 06/16/21 05:10 Glucose (Fingerstick) 222 mg/dL (70-99) 134 mg/dL (70-99) 223 mg/dL (70-99) White Blood Count 13.1 x10^3/uL (4.0-11.0) Red Blood Count 4.70 x10^6/uL (3.50-5.40) Hemoglobin 11.2 g/dL (12.0-15.5) Hematocrit 34.4 % (36.0-47.0) Mean Corpuscular Volume 73 fL (79-100) Mean Corpuscular Hemoglobin 24 pg (25-35) Mean Corpuscular Hemoglobin Concent 33 g/dL (31-37) Red Cell Distribution Width 16.4 % (11.5-14.5) Platelet Count 417 x10^3/uL (140-400) Neutrophils (%) (Auto) 89 % (31-73) Lymphocytes (%) (Auto) 7 % (24-48) Monocytes (%) (Auto) 4 % (0-9) Eosinophils (%) (Auto) 0 % (0-3) Basophils (%) (Auto) 0 % (0-3) Neutrophils # (Auto) 11.7 x10^3/uL (1.8-7.7) Lymphocytes # (Auto) 1.0 x10^3/uL (1.0-4.8) Monocytes # (Auto) 0.5 x10^3/uL (0.0-1.1) Eosinophils # (Auto) 0.0 x10^3/uL (0.0-0.7) Basophils # (Auto) 0.0 x10^3/uL (0.0-0.2) Sodium Level 141 mmol/L (136-145) Potassium Level 3.7 mmol/L (3.5-5.1) Chloride Level 106 mmol/L (98-107) Carbon Dioxide Level 28 mmol/L (21-32) Anion Gap 7 (6-14) Blood Urea Nitrogen 17 mg/dL (7-20) Creatinine 0.6 mg/dL (0.6-1.0) Estimated GFR (Cockcroft-Gault) 110.7 Glucose Level 170 mg/dL (70-99) Calcium Level 8.4 mg/dL (8.5-10.1) Magnesium Level 2.2 mg/dL (1.8-2.4) Test 06/16/21 08:33 06/16/21 12:01 06/16/21 16:39 06/16/21 20:35 Glucose (Fingerstick) 169 mg/dL (70-99) 185 mg/dL (70-99) 156 mg/dL (70-99) 184 mg/dL (70-99) Test 06/17/21 06:00 06/17/21 07:53 White Blood Count 14.4 x10^3/uL (4.0-11.0) Red Blood Count 4.72 x10^6/uL (3.50-5.40) Hemoglobin 11.1 g/dL (12.0-15.5) Hematocrit 34.6 % (36.0-47.0) Mean Corpuscular Volume 73 fL (79-100) Mean Corpuscular Hemoglobin 24 pg (25-35) Mean Corpuscular Hemoglobin Concent 32 g/dL (31-37) Red Cell Distribution Width 16.3 % (11.5-14.5) Platelet Count 417 x10^3/uL (140-400) Neutrophils (%) (Auto) 91 % (31-73) Lymphocytes (%) (Auto) 5 % (24-48) Monocytes (%) (Auto) 4 % (0-9) Eosinophils (%) (Auto) 0 % (0-3) Basophils (%) (Auto) 0 % (0-3) Neutrophils # (Auto) 13.2 x10^3/uL (1.8-7.7) Lymphocytes # (Auto) 0.7 x10^3/uL (1.0-4.8) Monocytes # (Auto) 0.5 x10^3/uL (0.0-1.1) Eosinophils # (Auto) 0.0 x10^3/uL (0.0-0.7) Basophils # (Auto) 0.0 x10^3/uL (0.0-0.2) Sodium Level 141 mmol/L (136-145) Potassium Level 3.8 mmol/L (3.5-5.1) Chloride Level 106 mmol/L (98-107) Carbon Dioxide Level 28 mmol/L (21-32) Anion Gap 7 (6-14) Blood Urea Nitrogen 19 mg/dL (7-20) Creatinine 0.6 mg/dL (0.6-1.0) Estimated GFR (Cockcroft-Gault) 110.7 Glucose Level 179 mg/dL (70-99) Calcium Level 8.4 mg/dL (8.5-10.1) Magnesium Level 2.3 mg/dL (1.8-2.4) Glucose (Fingerstick) 164 mg/dL (70-99) Laboratory Tests Test 06/16/21 12:01 06/16/21 16:39 06/16/21 20:35 06/17/21 06:00 Glucose (Fingerstick) 185 mg/dL (70-99) 156 mg/dL (70-99) 184 mg/dL (70-99) White Blood Count 14.4 x10^3/uL (4.0-11.0) Red Blood Count 4.72 x10^6/uL (3.50-5.40) Hemoglobin 11.1 g/dL (12.0-15.5) Hematocrit 34.6 % (36.0-47.0) Mean Corpuscular Volume 73 fL (79-100) Mean Corpuscular Hemoglobin 24 pg (25-35) Mean Corpuscular Hemoglobin Concent 32 g/dL (31-37) Red Cell Distribution Width 16.3 % (11.5-14.5) Platelet Count 417 x10^3/uL (140-400) Neutrophils (%) (Auto) 91 % (31-73) Lymphocytes (%) (Auto) 5 % (24-48) Monocytes (%) (Auto) 4 % (0-9) Eosinophils (%) (Auto) 0 % (0-3) Basophils (%) (Auto) 0 % (0-3) Neutrophils # (Auto) 13.2 x10^3/uL (1.8-7.7) Lymphocytes # (Auto) 0.7 x10^3/uL (1.0-4.8) Monocytes # (Auto) 0.5 x10^3/uL (0.0-1.1) Eosinophils # (Auto) 0.0 x10^3/uL (0.0-0.7) Basophils # (Auto) 0.0 x10^3/uL (0.0-0.2) Sodium Level 141 mmol/L (136-145) Potassium Level 3.8 mmol/L (3.5-5.1) Chloride Level 106 mmol/L (98-107) Carbon Dioxide Level 28 mmol/L (21-32) Anion Gap 7 (6-14) Blood Urea Nitrogen 19 mg/dL (7-20) Creatinine 0.6 mg/dL (0.6-1.0) Estimated GFR (Cockcroft-Gault) 110.7 Glucose Level 179 mg/dL (70-99) Calcium Level 8.4 mg/dL (8.5-10.1) Magnesium Level 2.3 mg/dL (1.8-2.4) Test 06/17/21 07:53 Glucose (Fingerstick) 164 mg/dL (70-99) Medications Active Scripts Medications Dose Route/Sig Max Daily Dose Days Date Category Cyclobenzaprine Hcl 10 Mg Tablet 10 Mg PO TID 06/15/21 Reported Meloxicam 15 Mg Tablet 15 Mg PO DAILY 06/15/21 Reported Fluticasone Propionate Nasal [place] (Fluticasone Propionate) 16 Gm [place].susp 1 [place] NS DAILY 06/15/21 Reported Loratadine 10 Mg Tablet 10 Mg PO DAILY 06/15/21 Reported Furosemide 20 Mg Tablet 20 Mg PO DAILY 06/15/21 Reported Gabapentin (Gabapentin) 300 Mg Capsule 300 Mg PO TID 06/15/21 Reported Gabapentin (Gabapentin) 300 Mg Capsule 300 Mg PO TID 06/15/21 Reported Lisinopril 5 Mg Tablet 1 Tab PO DAILY 06/15/21 Reported Metformin Hcl 500 Mg Tablet 500 Mg PO BIDWMEALS 06/15/21 Reported Ozempic (Semaglutide) 0.25 Mg/0.2 Ml Pen.injctr 0.25 Mg SQ WEEKLY 06/15/21 Reported Impression . 1. Acute hypoxic respiratory failure secondary to ARDS/COVID-[address] of chest secondary to COVID-19 infection/ARDS 3. Diabetes type 2 with hyperglycemia 4. Hypertension 5. Hyperlipdemia 6. Obesity Plan . Continue current Vapotherm at 80% FiO2 and 40 L flow. Patient seems to be tolerating well Monitor respiratory status closely for the need for intubation Continue steroids will need full 10-day course, with slow taper Continue antibiotics, currently on Zosyn continue remdesivir for full course Continue zinc/vitamin C Diabetes per PCP Hypertension Per PCP DVT/GI prophylaxis: Lovenox Discussed with RN and RT NICOLETTE MORALES MD Jun 17, 2021 09:30
[2021-06-17] MEDS: ENOXAPARIN 40 MG/0.4 ML SYRINGE. SQ SCH ×2 (09:32→20:26)
[2021-06-17] MEDS: REMDESIVIR 100mg in NORMAL SALINE 250ML X 9 DAYS IV SCH (09:43)
--- NOTE | 2021-06-17 11:17 | PDOC ---
[employer] PROGRESS NOTE Date of Service DOS: DATE: 06/17/21 TIME: 11:15 Chief Complaint Chief Complaint SOB History of Present Illness History of Present Illness Patient is a transfer from [facility] in [facility] 40-year-old female with past medical history of diabetes, hypertension, dyslipidemia and morbid obesity who complains of shortness of breath 1 week ago and went to urgent care and found out that she was positive for Covid. She came in at 5:00 in the morning at [facility] is very hypoxic and was found to be her oxygen saturation was 68% she was put on a nonrebreather 15 L and she was improved to 90 to 93%. Patient is [id number]. Patient is a poor historian. She does not know what kind of medication she takes for her medical history. 06/15/21 Patient seen and examined at bedside in the ICU. She was face time talking with family members. She was still on nonrebreather. Reports that she feels improved from yesterday. Otherwise no complaints. Pulmonary consulted. Plan of care discussed with bedside nurse. 06/16/21 Patient seen and examined at bedside. On Vapotherm doing well. Stable from yesterday. No major complaints. Pulmonary following. Plan of care discussed with bedside nurse. 06/17/21 Patient seen and examined at bedside. Remains on Vapotherm although O2 requirement decreasing. Continue current plan. Plan of care discussed bedside nurse. Vitals/I&O Vitals/I&O: Vital Signs Date Time Temp Pulse Resp B/P (MAP) Pulse Ox O2 Delivery O2 Flow Rate FiO2 06/17/21 10:59 95 VAPOTHERM/HFNC 30.0 06/17/21 10:00 63 42 155/78 (103) 06/17/21 08:00 98.6 98.6 I & O 06/16/21 06/16/21 06/17/21 15:00 23:00 07:00 Intake Total 1120 ml 580 ml 100 ml Output Total 370 ml 275 ml 475 ml Balance 750 ml 305 ml -375 ml Physical Exam General: Alert, Oriented X3, Cooperative Heart: Regular rate, Normal S1, Normal S2 Abdomen: Normal bowel sounds, Soft Extremities: No clubbing, No edema, Normal pulses Skin: No rashes, No significant lesion Labs Labs: Laboratory Tests Test 06/16/21 12:01 06/16/21 16:39 06/16/21 20:35 06/17/21 06:00 Glucose (Fingerstick) 185 mg/dL (70-99) 156 mg/dL (70-99) 184 mg/dL (70-99) White Blood Count 14.4 x10^3/uL (4.0-11.0) Red Blood Count 4.72 x10^6/uL (3.50-5.40) Hemoglobin 11.1 g/dL (12.0-15.5) Hematocrit 34.6 % (36.0-47.0) Mean Corpuscular Volume 73 fL (79-100) Mean Corpuscular Hemoglobin 24 pg (25-35) Mean Corpuscular Hemoglobin Concent 32 g/dL (31-37) Red Cell Distribution Width 16.3 % (11.5-14.5) Platelet Count 417 x10^3/uL (140-400) Neutrophils (%) (Auto) 91 % (31-73) Lymphocytes (%) (Auto) 5 % (24-48) Monocytes (%) (Auto) 4 % (0-9) Eosinophils (%) (Auto) 0 % (0-3) Basophils (%) (Auto) 0 % (0-3) Neutrophils # (Auto) 13.2 x10^3/uL (1.8-7.7) Lymphocytes # (Auto) 0.7 x10^3/uL (1.0-4.8) Monocytes # (Auto) 0.5 x10^3/uL (0.0-1.1) Eosinophils # (Auto) 0.0 x10^3/uL (0.0-0.7) Basophils # (Auto) 0.0 x10^3/uL (0.0-0.2) Sodium Level 141 mmol/L (136-145) Potassium Level 3.8 mmol/L (3.5-5.1) Chloride Level 106 mmol/L (98-107) Carbon Dioxide Level 28 mmol/L (21-32) Anion Gap 7 (6-14) Blood Urea Nitrogen 19 mg/dL (7-20) Creatinine 0.6 mg/dL (0.6-1.0) Estimated GFR (Cockcroft-Gault) 110.7 Glucose Level 179 mg/dL (70-99) Calcium Level 8.4 mg/dL (8.5-10.1) Magnesium Level 2.3 mg/dL (1.8-2.4) Test 06/17/21 07:53 Glucose (Fingerstick) 164 mg/dL (70-99) Assessment and Plan Assessmemt and Plan Acute hypoxic respiratory failure requiring BiPAP COVID-19 pneumonia Morbid obesity History of diabetes mellitus type 2 History of hypertension Pulmonology consult Continue IV thiamine and vitamin C IV Solu-Medrol every 8 Continue Zosyn Titrate O2 supplementation to maintain O2 saturation greater than 92% Initiate IV Remdesivir Lovenox for DVT prophylaxis Protonix GI prophylaxis ADA diet Full code Discussed with RN and SW Disposition ICU management as above Surrogate decision maker is the undesignated at this time Comment Review of Relevant I have reviewed the following items man (where applicable) has been applied. Justifications for Admission Other Justification Acute hypoxic respiratory failure and Covid pneumonia DUNG FRANCO MD Jun 17, 2021 11:17
[2021-06-17] MEDS ORDERED: CALCIUM CARBONATE 500 MG TAB.CHEW PO PRN (19:30)
[2021-06-18] VITALS (24 sets, daily range): BP systolic 117–167; BP diastolic 56–82
[2021-06-18] MEDS: PIPERACILLIN/TAZOBACTAM 3.375 GM in IV NORMAL SALINE 50ML 50 ML IV SCH ×5 (00:07→23:55)
[2021-06-18] MEDS: BENZONATATE 100 MG CAPSULE. PO SCH ×5 (00:07→23:53)
[2021-06-18] MEDS: methylPREDNISolone SOD SUCC PF 125 MG/2 ML VIAL. IV SCH ×3 (06:16→21:13)
[2021-06-18 06:53] LABS: CALCIUM 7.9 mg/dL (8.5-10.1); CREATININE 0.5 mg/dL (0.6-1.0); GFR 136.6; POTASSIUM 3.8 mmol/L (3.5-5.1)
[2021-06-18 07:34] LABS: HEMATOCRIT 34.6 % (36.0-47.0); HEMOGLOBIN 11.3 g/dL (12.0-15.5); RED BLOOD COUNT 4.7 x10^6/uL (3.50-5.40); RED CELL DISTRIBUTION WIDTH 15.9 % (11.5-14.5); WHITE BLOOD COUNT 15.8 x10^3/uL (4.0-11.0)
[2021-06-18] MEDS: IPRATROPIUM/ALBUTEROL 20/100mcg/INH INHALER. INH SCH ×4 (08:00→21:13)
[2021-06-18] MEDS: INSULIN LISPRO 300 UNITS/3 ML VIAL. SQ SCH ×3 (08:00→17:00)
[2021-06-18] MEDS: ENOXAPARIN 40 MG/0.4 ML SYRINGE. SQ SCH ×2 (08:11→21:13)
[2021-06-18] MEDS: THIAMINE 100 MG TABLET. PO SCH (08:11)
[2021-06-18] MEDS: LACTOBACILLUS RHAMNOSUS GG 1 CAPSULE. PO SCH ×2 (08:11→21:00)
[2021-06-18] MEDS: ZINC SULFATE 220 MG CAPSULE. PO SCH (08:11)
[2021-06-18] MEDS: PANTOPRAZOLE 40 MG TABLET.DR. PO SCH (08:11)
[2021-06-18] MEDS: GABAPENTIN 300 MG CAPSULE. PO SCH ×3 (08:11→21:00)
[2021-06-18] MEDS: LISINOPRIL 5 MG TABLET. PO SCH (08:12)
--- NOTE | 2021-06-18 08:45 | PDOC ---
[employer] PROGRESS NOTE Date of Service DOS: DATE: 06/18/21 TIME: 08:43 Chief Complaint Chief Complaint SOB History of Present Illness History of Present Illness Patient is a transfer from [facility] in [facility] 40-year-old female with past medical history of diabetes, hypertension, dyslipidemia and morbid obesity who complains of shortness of breath 1 week ago and went to urgent care and found out that she was positive for Covid. She came in at 5:00 in the morning at [facility] is very hypoxic and was found to be her oxygen saturation was 68% she was put on a nonrebreather 15 L and she was improved to 90 to 93%. Patient is [id number]. Patient is a poor historian. She does not know what kind of medication she takes for her medical history. 06/15/21 Patient seen and examined at bedside in the ICU. She was face time talking with family members. She was still on nonrebreather. Reports that she feels improved from yesterday. Otherwise no complaints. Pulmonary consulted. Plan of care discussed with bedside nurse. 06/16/21 Patient seen and examined at bedside. On Vapotherm doing well. Stable from yesterday. No major complaints. Pulmonary following. Plan of care discussed with bedside nurse. 06/17/21 Patient seen and examined at bedside. Remains on Vapotherm although O2 requirement decreasing. Continue current plan. Plan of care discussed bedside nurse. 06/18/21 Patient seen and examined at bedside. On 40 L Vapotherm and now requiring NRB in addition. Worsening oxygenation. Although leukocytosis persists since patient is afebrile and on broad-spectrum antibiotics suspect this is related to steroids. Remdesivir finishes today. Pulmonary following. Plan of care discussed with bedside nurse. Vitals/I&O Vitals/I&O: Vital Signs Date Time Temp Pulse Resp B/P (MAP) Pulse Ox O2 Delivery O2 Flow Rate FiO2 06/18/21 08:32 89 VAPOTHERM/HFNC 40.0 06/18/21 08:12 76 155/73 06/18/21 07:00 38 06/18/21 04:00 98.4 98.4 I & O 06/17/21 06/17/21 06/18/21 15:00 23:00 07:00 Intake Total 960 ml 125 ml Output Total 600 ml 575 ml 650 ml Balance 360 ml -575 ml -525 ml Physical Exam General: Alert, Oriented X3, Cooperative Heart: Regular rate, Normal S1, Normal S2 Abdomen: Normal bowel sounds, Soft Extremities: No clubbing, No edema, Normal pulses Skin: No rashes, No significant lesion Labs Labs: Laboratory Tests Test 06/17/21 12:04 06/17/21 17:30 06/17/21 20:40 06/18/21 06:30 Glucose (Fingerstick) 173 mg/dL (70-99) 195 mg/dL (70-99) 150 mg/dL (70-99) White Blood Count 15.8 x10^3/uL (4.0-11.0) Red Blood Count 4.70 x10^6/uL (3.50-5.40) Hemoglobin 11.3 g/dL (12.0-15.5) Hematocrit 34.6 % (36.0-47.0) Mean Corpuscular Volume 74 fL (79-100) Mean Corpuscular Hemoglobin 24 pg (25-35) Mean Corpuscular Hemoglobin Concent 33 g/dL (31-37) Red Cell Distribution Width 15.9 % (11.5-14.5) Platelet Count 382 x10^3/uL (140-400) Sodium Level 145 mmol/L (136-145) Potassium Level 3.8 mmol/L (3.5-5.1) Chloride Level 108 mmol/L (98-107) Carbon Dioxide Level 31 mmol/L (21-32) Anion Gap 6 (6-14) Blood Urea Nitrogen 15 mg/dL (7-20) Creatinine 0.5 mg/dL (0.6-1.0) Estimated GFR (Cockcroft-Gault) 136.6 Glucose Level 164 mg/dL (70-99) Calcium Level 7.9 mg/dL (8.5-10.1) Assessment and Plan Assessmemt and Plan Acute hypoxic respiratory failure requiring BiPAP COVID-19 pneumonia Morbid obesity History of diabetes mellitus type 2 History of hypertension Pulmonology consult Continue IV thiamine and vitamin C IV Solu-Medrol every 8 Continue Zosyn Titrate O2 supplementation to maintain O2 saturation greater than 92% Initiate IV Remdesivir Lovenox for DVT prophylaxis Protonix GI prophylaxis ADA diet Full code Discussed with RN and SW Disposition ICU management as above Surrogate decision maker is the undesignated at this time Comment Review of Relevant I have reviewed the following items man (where applicable) has been applied. Medications: Current Medications Medications (Trade) Dose Ordered Sig/Jun Route PRN Reason Start Time Stop Time Status Last Admin Dose Admin Calcium Carbonate/ Glycine (Tums) 500 mg PRN AFTMEALHC PRN PO INDIGESTION 06/17/21 19:30 06/17/21 20:27 Justifications for Admission Other Justification Acute hypoxic respiratory failure and Covid pneumonia DUNG FRANCO MD Jun 18, 2021 08:45
--- NOTE | 2021-06-18 08:55 | PDOC ---
PULMONARY PROGRESS NOTES DATE: 06/18/21 TIME: 08:54 Subjective Patient's oxygen requirement has increased. Now requiring 15 L of nonrebreather mask in addition to 100% FiO2 through Vapotherm. No paradoxical breathing. Vitals Vital Signs Date Time Temp Pulse Resp B/P (MAP) Pulse Ox O2 Delivery O2 Flow Rate FiO2 06/18/21 08:32 89 VAPOTHERM/HFNC 40.0 06/18/21 08:12 76 155/73 06/18/21 08:00 98.4 47 98.4 Comments Visual exam done due to COVID-19. No paradoxical breathing. No respiratory distress. Obese no skin rash. No leg edema. General: Alert, No acute distress Labs Laboratory Tests Test 06/16/21 12:01 06/16/21 16:39 06/16/21 20:35 06/17/21 06:00 Glucose (Fingerstick) 185 mg/dL (70-99) 156 mg/dL (70-99) 184 mg/dL (70-99) White Blood Count 14.4 x10^3/uL (4.0-11.0) Red Blood Count 4.72 x10^6/uL (3.50-5.40) Hemoglobin 11.1 g/dL (12.0-15.5) Hematocrit 34.6 % (36.0-47.0) Mean Corpuscular Volume 73 fL (79-100) Mean Corpuscular Hemoglobin 24 pg (25-35) Mean Corpuscular Hemoglobin Concent 32 g/dL (31-37) Red Cell Distribution Width 16.3 % (11.5-14.5) Platelet Count 417 x10^3/uL (140-400) Neutrophils (%) (Auto) 91 % (31-73) Lymphocytes (%) (Auto) 5 % (24-48) Monocytes (%) (Auto) 4 % (0-9) Eosinophils (%) (Auto) 0 % (0-3) Basophils (%) (Auto) 0 % (0-3) Neutrophils # (Auto) 13.2 x10^3/uL (1.8-7.7) Lymphocytes # (Auto) 0.7 x10^3/uL (1.0-4.8) Monocytes # (Auto) 0.5 x10^3/uL (0.0-1.1) Eosinophils # (Auto) 0.0 x10^3/uL (0.0-0.7) Basophils # (Auto) 0.0 x10^3/uL (0.0-0.2) Sodium Level 141 mmol/L (136-145) Potassium Level 3.8 mmol/L (3.5-5.1) Chloride Level 106 mmol/L (98-107) Carbon Dioxide Level 28 mmol/L (21-32) Anion Gap 7 (6-14) Blood Urea Nitrogen 19 mg/dL (7-20) Creatinine 0.6 mg/dL (0.6-1.0) Estimated GFR (Cockcroft-Gault) 110.7 Glucose Level 179 mg/dL (70-99) Calcium Level 8.4 mg/dL (8.5-10.1) Magnesium Level 2.3 mg/dL (1.8-2.4) Test 06/17/21 07:53 06/17/21 12:04 06/17/21 17:30 06/17/21 20:40 Glucose (Fingerstick) 164 mg/dL (70-99) 173 mg/dL (70-99) 195 mg/dL (70-99) 150 mg/dL (70-99) Test 06/18/21 06:30 White Blood Count 15.8 x10^3/uL (4.0-11.0) Red Blood Count 4.70 x10^6/uL (3.50-5.40) Hemoglobin 11.3 g/dL (12.0-15.5) Hematocrit 34.6 % (36.0-47.0) Mean Corpuscular Volume 74 fL (79-100) Mean Corpuscular Hemoglobin 24 pg (25-35) Mean Corpuscular Hemoglobin Concent 33 g/dL (31-37) Red Cell Distribution Width 15.9 % (11.5-14.5) Platelet Count 382 x10^3/uL (140-400) Sodium Level 145 mmol/L (136-145) Potassium Level 3.8 mmol/L (3.5-5.1) Chloride Level 108 mmol/L (98-107) Carbon Dioxide Level 31 mmol/L (21-32) Anion Gap 6 (6-14) Blood Urea Nitrogen 15 mg/dL (7-20) Creatinine 0.5 mg/dL (0.6-1.0) Estimated GFR (Cockcroft-Gault) 136.6 Glucose Level 164 mg/dL (70-99) Calcium Level 7.9 mg/dL (8.5-10.1) Laboratory Tests Test 06/17/21 12:04 06/17/21 17:30 06/17/21 20:40 06/18/21 06:30 Glucose (Fingerstick) 173 mg/dL (70-99) 195 mg/dL (70-99) 150 mg/dL (70-99) White Blood Count 15.8 x10^3/uL (4.0-11.0) Red Blood Count 4.70 x10^6/uL (3.50-5.40) Hemoglobin 11.3 g/dL (12.0-15.5) Hematocrit 34.6 % (36.0-47.0) Mean Corpuscular Volume 74 fL (79-100) Mean Corpuscular Hemoglobin 24 pg (25-35) Mean Corpuscular Hemoglobin Concent 33 g/dL (31-37) Red Cell Distribution Width 15.9 % (11.5-14.5) Platelet Count 382 x10^3/uL (140-400) Sodium Level 145 mmol/L (136-145) Potassium Level 3.8 mmol/L (3.5-5.1) Chloride Level 108 mmol/L (98-107) Carbon Dioxide Level 31 mmol/L (21-32) Anion Gap 6 (6-14) Blood Urea Nitrogen 15 mg/dL (7-20) Creatinine 0.5 mg/dL (0.6-1.0) Estimated GFR (Cockcroft-Gault) 136.6 Glucose Level 164 mg/dL (70-99) Calcium Level 7.9 mg/dL (8.5-10.1) Medications Active Scripts Medications Dose Route/Sig Max Daily Dose Days Date Category Cyclobenzaprine Hcl 10 Mg Tablet 10 Mg PO TID 06/15/21 Reported Meloxicam 15 Mg Tablet 15 Mg PO DAILY 06/15/21 Reported Fluticasone Propionate Nasal [place] (Fluticasone Propionate) 16 Gm [place].susp 1 [place] NS DAILY 06/15/21 Reported Loratadine 10 Mg Tablet 10 Mg PO DAILY 06/15/21 Reported Furosemide 20 Mg Tablet 20 Mg PO DAILY 06/15/21 Reported Gabapentin (Gabapentin) 300 Mg Capsule 300 Mg PO TID 06/15/21 Reported Gabapentin (Gabapentin) 300 Mg Capsule 300 Mg PO TID 06/15/21 Reported Lisinopril 5 Mg Tablet 1 Tab PO DAILY 06/15/21 Reported Metformin Hcl 500 Mg Tablet 500 Mg PO BIDWMEALS 06/15/21 Reported Ozempic (Semaglutide) 0.25 Mg/0.2 Ml Pen.injctr 0.25 Mg SQ WEEKLY 06/15/21 Reported Impression . 1. Acute hypoxic respiratory failure secondary to ARDS/COVID-[address] of chest secondary to COVID-19 infection/ARDS 3. Diabetes type 2 with hyperglycemia 4. Hypertension 5. Hyperlipdemia 6. Obesity Plan . Continue current Vapotherm at 100% FiO2 and 40 L flow. In addition, continue with nonrebreather mask. Patient seems to be tolerating well Monitor respiratory status closely for the need for intubation Continue steroids will need full 10-day course, with slow taper Continue antibiotics, currently on Zosyn continue remdesivir for full course Continue zinc/vitamin C Diabetes per PCP Hypertension Per PCP DVT/GI prophylaxis: Lovenox Discussed with RN and RT Chart reviewed imaging studies reviewed critical care time 30 minutes including decision making NICOLETTE MORALES MD Jun 18, 2021 08:55
[2021-06-18] MEDS: ASCORBIC ACID 1,000 MG TABLET PO SCH ×3 (09:00→21:00)
[2021-06-18] MEDS: REMDESIVIR 100mg in NORMAL SALINE 250ML X 9 DAYS IV SCH (09:37)
[2021-06-18] MEDS ORDERED: ATROPINE 0.5 MG/5 ML DISP.SYRINGE. IV PRN (10:15)
[2021-06-18] MEDS ORDERED: IV NORMAL SALINE 500ML BAG 500 ML IV PRN (10:15)
[2021-06-18] MEDS: DEXMEDETOMIDINE 400 MCG in IV NORMAL SALINE 100ML 96 ML IV PRN ×4 (10:39→23:16)
[2021-06-18] MEDS: STERILE WATER for RESP 1,000 ML BAG. INH PRN (13:05)
--- NOTE | 2021-06-18 17:34 | NUR ---
BIPAP note: Due to decreasing SpO2 and increased work of breathing, attempted to place patient on Bipap. Breathing shallow and rate 36-40 on Vapotherm + 15L NRB. However, patient did not tolerate despite multiple attempts at coaching. RR on Bipap 55-60. Attempted both S/T and AVAPS modes on low settings. Patient back on Vapotherm + NRB.
--- NOTE | 2021-06-18 22:30 | NUR ---
Patient SpO2 ranging from 88-91% on Vapotherm 40L/100% + 15L NRB. This RN went asked patient about bipap-patient refused. Family called- understands severity of condition and possible need for intubation. First to call is family friend Marcy [phone] for any changes and if patient is to be intubated. Patient currently oxygenating at 90-92% on vapotherm- light sedation with precedex continued.
[2021-06-19] VITALS (25 sets, daily range): BP systolic 96–159; BP diastolic 43–79
[2021-06-19] MEDS: DEXMEDETOMIDINE 400 MCG in IV NORMAL SALINE 100ML 96 ML IV PRN (02:58)
[2021-06-19] MEDS ORDERED: SUCCINYLCHOLINE 200 MG/10 ML VIAL. ONE (03:43)
[2021-06-19] MEDS ORDERED: fentaNYL PF VIAL 100 MCG/2 ML VIAL IV PRN ×2 (03:45)
[2021-06-19] MEDS ORDERED: PROPOFOL 100 ML IV PRN (03:45)
[2021-06-19] MEDS: PROPOFOL 100 ML IV PRN ×9 (03:50→23:10)
[2021-06-19] MEDS ORDERED: SUCCINYLCHOLINE 200 MG/10 ML VIAL. IV ONE (04:00)
--- NOTE | 2021-06-19 04:06 | PDOC ---
Date and Time Resp distress. O2/NC & mask. Diprivan 200mg & Anectine 200mg IVP. 7.0 OETT/glide scope X 1, BBS, positive ETCO2, taped 22cm at teeth,. Chest X ray pending Current Medications Current Medications Methylprednisolone Sodium Succinate (SOLU-Medrol 125MG VIAL) 125 mg Q8HRS IV Last administered on 06/18/21at 21:13; Start 06/14/21 at 22:00 Benzonatate (Tessalon Perle) 100 mg Q6HRS PO Last administered on 06/18/21at 00:07; Start 06/15/21 at 00:00 Ketorolac Tromethamine (Toradol 30mg Vial) 30 mg Q8HRS IVP Last administered on 06/17/21at 14:10; Start 06/14/21 at 22:00; Stop 06/17/21 at 14:01; Status DC Piperacillin Sod/ Tazobactam Sod 3.375 gm/Sodium Chloride 50 ml @ 100 mls/hr Q8HRS IV ; Start 06/14/21 at 22:00; Status UNV Albuterol/ Ipratropium (Duoneb) 3 ml QID INH ; Start 06/15/21 at 09:00; Status UNV Albuterol/ Ipratropium (Combivent Respimat 20-100 Mcg) 1 puff RTQID INH Last administered on 06/18/21at 21:13; Start 06/15/21 at 08:00 Sterile Water (WATER for RESP) 1,000 ml CONT PRN INH VIA VAPOTHERM DEVICE Last administered on 06/18/21at 13:05; Start 06/14/21 at 21:30 Remdesivir 100 mg/ Sodium Chloride 230 ml @ 460 mls/hr Q24H IV Last administered on 06/18/21at 09:37; Start 06/15/21 at 09:00; Stop 06/18/21 at 09:29; Status DC Piperacillin Sod/ Tazobactam Sod (Zosyn Per Pharmacy) 1 each PRN DAILY PRN MC SEE COMMENTS; Start 06/14/21 at 21:30 Piperacillin Sod/ Tazobactam Sod 3.375 gm/Sodium Chloride 50 ml @ 100 mls/hr 1X ONCE IV Last administered on 06/14/21at 21:52; Start 06/14/21 at 22:00; Stop 06/14/21 at 22:29; Status DC Ascorbic Acid (Vitamin C) 3,000 mg TID PO Last administered on 06/18/21at 13:21; Start 06/15/21 at 09:00 Thiamine Mononitrate (Vitamin B-1) 300 mg DAILY PO Last administered on 06/18/21at 08:11; Start 06/15/21 at 09:00 Zinc Sulfate (Orazinc) 220 mg DAILY PO Last administered on 06/18/21at 08:11; Start 06/15/21 at 09:00 Sennosides (Senna) 17.2 mg PRN BID PRN PO CONSTIPATION 1ST CHOICE; Start 06/14/21 at 22:15 Docusate Sodium (Colace) 100 mg PRN DAILY PRN PO HARD STOOLS; Start 06/14/21 at 22:15 Ondansetron HCl (Zofran) 4 mg PRN Q6HRS PRN IVP NAUSEA/VOMITING 1ST CHOICE; Start 06/14/21 at 22:15 Dextrose (Dextrose 50%-Water Syringe) 12.5 gm PRN Q15MIN PRN IV SEE COMMENTS; Start 06/14/21 at 22:15 Acetaminophen (Tylenol) 650 mg PRN Q4HRS PRN PO TEMP OVER 100.4F OR MILD PAIN; Start 06/14/21 at 22:15 Enoxaparin Sodium (Lovenox 40mg Syringe) 40 mg Q24H SQ Last administered on 06/14/21at 23:22; Start 06/14/21 at 23:00; Stop 06/15/21 at 09:06; Status DC Prochlorperazine Edisylate (Compazine) 10 mg PRN Q6HRS PRN IV NAUSEA/VOMITING 2ND CHOICE; Start 06/14/21 at 22:15 Pantoprazole Sodium (Protonix) 40 mg DAILYAC PO Last administered on 06/18/21at 08:11; Start 06/15/21 at 07:30 Piperacillin Sod/ Tazobactam Sod 3.375 gm/Sodium Chloride 50 ml @ 100 mls/hr Q6HRS IV Last administered on 06/18/21at 23:55; Start 06/15/21 at 06:00 Gabapentin (Neurontin) 300 mg TID PO Last administered on 06/18/21at 13:22; Start 06/15/21 at 09:00 Lisinopril (Prinivil) 5 mg DAILY PO Last administered on 06/18/21at 08:12; Start 06/15/21 at 09:00 Enoxaparin Sodium (Lovenox 40mg Syringe) 40 mg Q12HR SQ Last administered on 06/18/21at 21:13; Start 06/15/21 at 10:00 Insulin Human Lispro (HumaLOG) 0-5 UNITS TIDWMEALS SQ Last administered on 06/17/21at 17:40; Start 06/15/21 at 12:00 Dextrose (Dextrose 50%-Water Syringe) 12.5 gm PRN Q15MIN PRN IV SEE COMMENTS; Start 06/15/21 at 11:15; Status UNV Lactobacillus Rhamnosus (Culturelle) 1 cap BID PO Last administered on 06/18/21at 08:11; Start 06/15/21 at 21:00 Calcium Carbonate/ Glycine (Tums) 500 mg PRN AFTMEALHC PRN PO INDIGESTION Last administered on 06/17/21at 20:27; Start 06/17/21 at 19:30 Dexmedetomidine HCl 400 mcg/ Sodium Chloride 100 ml @ 0 mls/hr CONT PRN IV PER PROTOCOL Last administered on 06/19/21at 02:58; Start 06/18/21 at 10:15 Sodium Chloride 500 ml @ 500 mls/hr 1X PRN PRN IV SEE COMMENTS; Start 06/18/21 at 10:15 Atropine Sulfate (ATROPINE 0.5mg SYRINGE) 0.5 mg PRN Q5MIN PRN IV SEE COMMENTS; Start 06/18/21 at 10:15 Succinylcholine Chloride (Anectine) 200 mg 1X ONCE IV Last administered on 06/19/21at 03:51; Start 06/19/21 at 04:00; Stop 06/19/21 at 04:01; Status DC Propofol 100 ml @ 3.969 mls/ hr CONT PRN IV SEDATION; Start 06/19/21 at 03:45; Stop 06/19/21 at 03:44; Status DC Fentanyl Citrate 30 ml @ 0 mls/hr CONT PRN IV SEE PROTOCOL; Start 06/19/21 at 03:45 Propofol 100 ml @ 0 mls/hr CONT PRN IV PER PROTOCOL Last administered on 06/19/21at 03:50; Start 06/19/21 at 03:45 Fentanyl Citrate (Fentanyl 2ml Vial) 25 mcg PRN Q1HR PRN IV SEE COMMENTS; Start 06/19/21 at 03:45 Fentanyl Citrate (Fentanyl 2ml Vial) 50 mcg PRN Q1HR PRN IV SEE COMMENTS; Start 06/19/21 at 03:45 Midazolam HCl 100 ml @ 0 mls/hr CONT PRN IV SEE PROTOCOL; Start 06/19/21 at 03: 45 Succinylcholine Chloride (Anectine) 200 mg STK-MED ONCE .ROUTE ; Start 06/19/21 at 03:43; Stop 06/19/21 at 03:43; Status DC Active Scripts Active Reported Cyclobenzaprine Hcl 10 Mg Tablet 10 Mg PO TID Meloxicam 15 Mg Tablet 15 Mg PO DAILY Fluticasone Propionate Nasal [place] (Fluticasone Propionate) 16 Gm [place].susp 1 [place] NS DAILY Loratadine 10 Mg Tablet 10 Mg PO DAILY Furosemide 20 Mg Tablet 20 Mg PO DAILY Gabapentin (Gabapentin) 300 Mg Capsule 300 Mg PO TID Gabapentin (Gabapentin) 300 Mg Capsule 300 Mg PO TID Lisinopril 5 Mg Tablet 1 Tab PO DAILY Metformin Hcl 500 Mg Tablet 500 Mg PO BIDWMEALS Ozempic (Semaglutide) 0.25 Mg/0.2 Ml Pen.injctr 0.25 Mg SQ WEEKLY Pertinent Labs/Test Laboratory Tests Test 06/17/21 06:00 06/17/21 07:53 06/17/21 12:04 06/17/21 17:30 White Blood Count 14.4 x10^3/uL (4.0-11.0) Red Blood Count 4.72 x10^6/uL (3.50-5.40) Hemoglobin 11.1 g/dL (12.0-15.5) Hematocrit 34.6 % (36.0-47.0) Mean Corpuscular Volume 73 fL (79-100) Mean Corpuscular Hemoglobin 24 pg (25-35) Mean Corpuscular Hemoglobin Concent 32 g/dL (31-37) Red Cell Distribution Width 16.3 % (11.5-14.5) Platelet Count 417 x10^3/uL (140-400) Neutrophils (%) (Auto) 91 % (31-73) Lymphocytes (%) (Auto) 5 % (24-48) Monocytes (%) (Auto) 4 % (0-9) Eosinophils (%) (Auto) 0 % (0-3) Basophils (%) (Auto) 0 % (0-3) Neutrophils # (Auto) 13.2 x10^3/uL (1.8-7.7) Lymphocytes # (Auto) 0.7 x10^3/uL (1.0-4.8) Monocytes # (Auto) 0.5 x10^3/uL (0.0-1.1) Eosinophils # (Auto) 0.0 x10^3/uL (0.0-0.7) Basophils # (Auto) 0.0 x10^3/uL (0.0-0.2) Sodium Level 141 mmol/L (136-145) Potassium Level 3.8 mmol/L (3.5-5.1) Chloride Level 106 mmol/L (98-107) Carbon Dioxide Level 28 mmol/L (21-32) Anion Gap 7 (6-14) Blood Urea Nitrogen 19 mg/dL (7-20) Creatinine 0.6 mg/dL (0.6-1.0) Estimated GFR (Cockcroft-Gault) 110.7 Glucose Level 179 mg/dL (70-99) Calcium Level 8.4 mg/dL (8.5-10.1) Magnesium Level 2.3 mg/dL (1.8-2.4) Glucose (Fingerstick) 164 mg/dL (70-99) 173 mg/dL (70-99) 195 mg/dL (70-99) Test 06/17/21 20:40 06/18/21 06:30 06/18/21 11:30 06/18/21 17:49 Glucose (Fingerstick) 150 mg/dL (70-99) 184 mg/dL (70-99) 183 mg/dL (70-99) White Blood Count 15.8 x10^3/uL (4.0-11.0) Red Blood Count 4.70 x10^6/uL (3.50-5.40) Hemoglobin 11.3 g/dL (12.0-15.5) Hematocrit 34.6 % (36.0-47.0) Mean Corpuscular Volume 74 fL (79-100) Mean Corpuscular Hemoglobin 24 pg (25-35) Mean Corpuscular Hemoglobin Concent 33 g/dL (31-37) Red Cell Distribution Width 15.9 % (11.5-14.5) Platelet Count 382 x10^3/uL (140-400) Sodium Level 145 mmol/L (136-145) Potassium Level 3.8 mmol/L (3.5-5.1) Chloride Level 108 mmol/L (98-107) Carbon Dioxide Level 31 mmol/L (21-32) Anion Gap 6 (6-14) Blood Urea Nitrogen 15 mg/dL (7-20) Creatinine 0.5 mg/dL (0.6-1.0) Estimated GFR (Cockcroft-Gault) 136.6 Glucose Level 164 mg/dL (70-99) Calcium Level 7.9 mg/dL (8.5-10.1) Laboratory Tests Test 06/18/21 06:30 06/18/21 11:30 06/18/21 17:49 White Blood Count 15.8 x10^3/uL (4.0-11.0) Red Blood Count 4.70 x10^6/uL (3.50-5.40) Hemoglobin 11.3 g/dL (12.0-15.5) Hematocrit 34.6 % (36.0-47.0) Mean Corpuscular Volume 74 fL (79-100) Mean Corpuscular Hemoglobin 24 pg (25-35) Mean Corpuscular Hemoglobin Concent 33 g/dL (31-37) Red Cell Distribution Width 15.9 % (11.5-14.5) Platelet Count 382 x10^3/uL (140-400) Sodium Level 145 mmol/L (136-145) Potassium Level 3.8 mmol/L (3.5-5.1) Chloride Level 108 mmol/L (98-107) Carbon Dioxide Level 31 mmol/L (21-32) Anion Gap 6 (6-14) Blood Urea Nitrogen 15 mg/dL (7-20) Creatinine 0.5 mg/dL (0.6-1.0) Estimated GFR (Cockcroft-Gault) 136.6 Glucose Level 164 mg/dL (70-99) Calcium Level 7.9 mg/dL (8.5-10.1) Glucose (Fingerstick) 184 mg/dL (70-99) 183 mg/dL (70-99) LAST VITALS Vital Signs Date Time Temp Pulse Resp B/P (MAP) Pulse Ox O2 Delivery O2 Flow Rate FiO2 06/19/21 03:34 88 VAPOTHERM/HFNC 40.0 06/19/21 02:00 55 46 159/75 (103) 06/19/21 00:00 98.1 98.1 NETTIE SCOTT CRNA Jun 19, 2021 04:06
[2021-06-19] MEDS: MIDAZOLAM 100mg/100ml NS BAG 100 ML IV PRN ×3 (04:23→21:12)
--- NOTE | 2021-06-19 04:27 | RAD ---
AP chest x-ray HISTORY: Endotracheal tube placement. COMPARISON: Chest x-ray June 17, 2021 FINDINGS: Right PICC line tip right atrium stable. ET tube has been placed tip 3 cm above the narcisa. OG tube in place extending to the left upper quadrant abdomen. Mild cardiomegaly is stable. Mediasti nal silhouette is stable. No pneumothorax. No pleural effusions. Heterogeneous pulmonary interstitial and alveolar infiltrates are stable. IMPRESSION: Lines and tubes as described above. Stable chest disease. AP abdomen x-ray HISTORY: OG tube placement. FINDINGS: OG tube tip left upper quadrant general radiographic region of the lower stomach. PICC line tip right atrium. Pulmonary infiltrates of the lung bases. No dilated bowel loops at the upper abdom en evident. Bones are unremarkable. IMPRESSION: OG tube placement as described above. Electronically signed by: Ulices Xiao MD (06/19/2021 4:24 AM) [facility]
[2021-06-19] MEDS: PIPERACILLIN/TAZOBACTAM 3.375 GM in IV NORMAL SALINE 50ML 50 ML IV SCH ×4 (05:12→23:28)
[2021-06-19] MEDS: methylPREDNISolone SOD SUCC PF 125 MG/2 ML VIAL. IV SCH ×4 (05:13→21:00)
[2021-06-19] MEDS: BENZONATATE 100 MG CAPSULE. PO SCH ×2 (05:15→12:00)
--- NOTE | 2021-06-19 06:00 | NUR ---
Patient O2 saturation on Vapotherm 40L/100% + 15L NRB at 83-85%, RR in 40s. Attempted to bolus with precedex for anxiety, sats did not recover. This RN used core measures abstractor phone to discuss condition with patient, is still refusing bipap, understands intubation will be the next step. This RN called Kristal, sister and told her about need for intubation, they understood. Due to increasing emergency, patient intubated stat at [address] Alvarado updated afterwards, agreed with vent settings, routine ABG to be drawn in morning. Updated patient's family, after talking amongst each other it was decided first to call for any changes is family friend Marcy and then sister Kristal.
--- NOTE | 2021-06-19 06:45 | PDOC ---
[employer] PROGRESS NOTE Date of Service DOS: DATE: 06/19/21 TIME: 06:42 Chief Complaint Chief Complaint Acute hypoxic respiratory failure requiring BiPAP COVID-19 pneumonia Morbid obesity History of diabetes mellitus type 2 History of hypertension Severe malnutrition Plan: Admit to ICU for further management Pulmonology consult Continue IV thiamine and vitamin C IV Solu-Medrol every 8 Pending ferritin, LDH, CRP, D-dimer labs Titrate O2 supplementation to maintain O2 saturation greater than 92% Initiate IV Remdesivir Lovenox for DVT prophylaxis Protonix GI prophylaxis ADA diet Full code Discussed with RN and SW Disposition ICU management as above Surrogate decision maker is the undesignated at this time History of Present Illness History of Present Illness Patient is a transfer from [facility] in [facility] 40-year-old female with past medical history of diabetes, hypertension, dy slipidemia and morbid obesity who complains of shortness of breath 1 week ago and went to urgent care and found out that she was positive for Covid. She came in at 5:00 in the morning at [facility] is very hypoxic and was found to be her oxygen saturation was 68% she was put on a nonrebreather 15 L and she was improved to 90 to 93%. Patient is [id number]. Patient is a poor historian. She does not know what kind of medication she takes for her medical history. 06/15/21 Patient seen and examined at bedside in the ICU. She was face time talking with family members. She was still on nonrebreather. Reports that she feels improved from yesterday. Otherwise no complaints. Pulmonary consulted. Plan of care discussed with bedside nurse. 06/16/21 Patient seen and examined at bedside. On Vapotherm doing well. Stable from yesterday. No major complaints. Pulmonary following. Plan of care discussed with bedside nurse. 06/17/21 Patient seen and examined at bedside. Remains on Vapotherm although O2 requirement decreasing. Continue current plan. Plan of care discussed bedside nurse. 06/18/21 Patient seen and examined at bedside. On 40 L Vapotherm and now requiring NRB in addition. Worsening oxygenation. Although leukocytosis persists since patient is afebrile and on broad-spectrum antibiotics suspect this is related to steroids. Remdesivir finishes today. Pulmonary following. Plan of care discussed with bedside nurse. 06/19/2021: Intubated overnight in ICU. Afebrile. Currently breathing FiO2 100%. Completed remdesivir. We will continue IV steroids and prophylactic antibiotics. 30 minutes critical care time spent reviewing charts, reviewing labs, reviewing imaging, and discussion with RN. Vitals/I&O Vitals/I&O: Vital Signs Date Time Temp Pulse Resp B/P (MAP) Pulse Ox O2 Delivery O2 Flow Rate FiO2 06/19/21 06:00 84 22 148/78 (101) 93 Ventilator 06/19/21 04:00 98.6 98.6 06/19/21 03:34 40.0 I & O 0 06/18/21 06/18/21 06/19/21 15:00 23:00 07:00 Intake Total 641 ml 247 ml Output Total 285 ml 500 ml 375 ml Balance -285 ml 141 ml -128 ml Physical Exam General: mild distress, Other (Intubated and sedated) Heart: Regular rate, Normal S1, Normal S2 Lungs: Other (Intubated) Abdomen: Normal bowel sounds, Soft Extremities: No clubbing, No edema, Normal pulses Skin: No rashes, No significant lesion Labs Labs: Laboratory Tests Test 06/18/21 11:30 06/18/21 17:49 Glucose (Fingerstick) 184 mg/dL (70-99) 183 mg/dL (70-99) Comment Review of Relevant I have reviewed the following items man (where applicable) has been applied. Medications: Current Medications Medications (Trade) Dose Ordered Sig/Jun Route PRN Reason Start Time Stop Time Status Last Admin Dose Admin Dexmedetomidine HCl 400 mcg/ Sodium Chloride 100 ml @ 0 mls/hr CONT PRN IV PER PROTOCOL 06/18/21 10:15 06/19/21 02:58 Succinylcholine Chloride (Anectine) 200 mg 1X ONCE IV 06/19/21 04:00 06/19/21 04:01 DC 06/19/21 03:51 Fentanyl Citrate 30 ml @ 0 mls/hr CONT PRN IV SEE PROTOCOL 06/19/21 03:45 06/19/21 04:08 Propofol 100 ml @ 0 mls/hr CONT PRN IV PER PROTOCOL 06/19/21 03:45 06/19/21 05:11 Midazolam HCl 100 ml @ 0 mls/hr CONT PRN IV SEE PROTOCOL 06/19/21 03:45 06/19/21 04:23 Justifications for Admission Other Justification Acute hypoxic respiratory failure and Covid pneumonia CLAUDIO BORJA MD Jun 19, 2021 06:45
--- NOTE | 2021-06-19 07:00 | NUR ---
Rapid titration of sedation after emergency intubation starting at 0400 to 0600. Started with propofol at 5mcg, now at 50mcg. Fentanyl at 50mcg now at 75mcg. Versed added on at 5mg then increased to 10mg. Precedex titrated off of patient. All sedation was titrated in order for patient to become in sync with the ventilator. As of the time of this note patient is in sync with ventilator O2 saturation at 93%
--- NOTE | 2021-06-19 07:38 | PDOC ---
PULMONARY PROGRESS NOTES DATE: 06/19/21 TIME: 07:30 Subjective vent support 100% and PEEP of 10 intubated on 06/19/21 no overnight concerns from nursing Vitals Vital Signs Date Time Temp Pulse Resp B/P (MAP) Pulse Ox O2 Delivery O2 Flow Rate FiO2 06/19/21 06:00 84 22 148/78 (101) 93 Ventilator 06/19/21 04:00 98.6 98.6 06/19/21 03:34 40.0 Comments Visual exam done due to COVID-19. Intubation No paradoxical breathing. No respiratory distress. Obese no skin rash. No leg edema. General: Alert, No acute distress Lungs: Other (Intubated) Labs Laboratory Tests Test 06/17/21 07:53 06/17/21 12:04 06/17/21 17:30 06/17/21 20:40 Glucose (Fingerstick) 164 mg/dL (70-99) 173 mg/dL (70-99) 195 mg/dL (70-99) 150 mg/dL (70-99) Test 06/18/21 06:30 06/18/21 11:30 06/18/21 17:49 06/19/21 06:30 White Blood Count 15.8 x10^3/uL (4.0-11.0) Red Blood Count 4.70 x10^6/uL (3.50-5.40) Hemoglobin 11.3 g/dL (12.0-15.5) Hematocrit 34.6 % (36.0-47.0) Mean Corpuscular Volume 74 fL (79-100) Mean Corpuscular Hemoglobin 24 pg (25-35) Mean Corpuscular Hemoglobin Concent 33 g/dL (31-37) Red Cell Distribution Width 15.9 % (11.5-14.5) Platelet Count 382 x10^3/uL (140-400) Sodium Level 145 mmol/L (136-145) Potassium Level 3.8 mmol/L (3.5-5.1) Chloride Level 108 mmol/L (98-107) Carbon Dioxide Level 31 mmol/L (21-32) Anion Gap 6 (6-14) Blood Urea Nitrogen 15 mg/dL (7-20) Creatinine 0.5 mg/dL (0.6-1.0) Estimated GFR (Cockcroft-Gault) 136.6 Glucose Level 164 mg/dL (70-99) Calcium Level 7.9 mg/dL (8.5-10.1) Glucose (Fingerstick) 184 mg/dL (70-99) 183 mg/dL (70-99) Albumin 1.8 g/dL (3.4-5.0) Laboratory Tests Test 06/18/21 11:30 06/18/21 17:49 06/19/21 06:30 Glucose (Fingerstick) 184 mg/dL (70-99) 183 mg/dL (70-99) Albumin 1.8 g/dL (3.4-5.0) Medications Active Scripts Medications Dose Route/Sig Max Daily Dose Days Date Category Cyclobenzaprine Hcl 10 Mg Tablet 10 Mg PO TID 06/15/21 Reported Meloxicam 15 Mg Tablet 15 Mg PO DAILY 06/15/21 Reported Fluticasone Propionate Nasal [place] (Fluticasone Propionate) 16 Gm [place].susp 1 [place] NS DAILY 06/15/21 Reported Loratadine 10 Mg Tablet 10 Mg PO DAILY 06/15/21 Reported Furosemide 20 Mg Tablet 20 Mg PO DAILY 06/15/21 Reported Gabapentin (Gabapentin) 300 Mg Capsule 300 Mg PO TID 06/15/21 Reported Gabapentin (Gabapentin) 300 Mg Capsule 300 Mg PO TID 06/15/21 Reported Lisinopril 5 Mg Tablet 1 Tab PO DAILY 06/15/21 Reported Metformin Hcl 500 Mg Tablet 500 Mg PO BIDWMEALS 06/15/21 Reported Ozempic (Semaglutide) 0.25 Mg/0.2 Ml Pen.injctr 0.25 Mg SQ WEEKLY 06/15/21 Reported Impression . 1. Acute hypoxic respiratory failure secondary to ARDS/COVID-19 infection, worsening intubated 06/19/[address] of chest secondary to COVID-19 infection/ARDS 3. Diabetes type 2 with hyperglycemia 4. Hypertension 5. Hyperlipdemia 6. Obesity Plan . 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
[2021-06-19 07:40] LABS: BASE EXCESS ABG 2 mmol/L (-3-3); HCO3 ABG 28 mmol/L (21-28); PCO2 ABG 49 mmHg (35-46); PO2 ABG 57 mmHg (75-108); SAT O2 ABG 85 % (92-99)
[2021-06-19 07:42] LABS: FIO2 ABG 100
[2021-06-19] MEDS: INSULIN LISPRO 300 UNITS/3 ML VIAL. SQ SCH ×4 (08:00→23:35)
[2021-06-19] MEDS: IPRATROPIUM/ALBUTEROL 20/100mcg/INH INHALER. INH SCH ×2 (08:00→12:00)
[2021-06-19] MEDS: PANTOPRAZOLE IV PUSH 40 MG VIAL. IVP SCH (09:16)
[2021-06-19] MEDS: ASCORBIC ACID 1,000 MG TABLET PO SCH ×3 (09:16→21:00)
[2021-06-19] MEDS: GABAPENTIN 300 MG CAPSULE. PO SCH ×3 (09:17→21:00)
[2021-06-19] MEDS: LACTOBACILLUS RHAMNOSUS GG 1 CAPSULE. PO SCH ×2 (09:17→19:20)
[2021-06-19] MEDS: LISINOPRIL 5 MG TABLET. PO SCH (09:17)
[2021-06-19] MEDS: ZINC SULFATE 220 MG CAPSULE. PO SCH (09:17)
[2021-06-19] MEDS: ENOXAPARIN 40 MG/0.4 ML SYRINGE. SQ SCH ×2 (09:26→21:00)
[2021-06-19] MEDS: THIAMINE 100 MG TABLET. PO SCH (10:32)
--- NOTE | 2021-06-19 11:42 | NUR ---
SS following up with discharge planning. SS reviewed pt chart and discussed with pt RN. Pt is currently on the vent at 100%. COVID19 positive. Pt on IV Solu Medrol and IV Zosyn. Pt on Versed, Fentanyl, and Propofol. Self pay. Med Assist following. Not stable. SS will continue to follow for discharge planning.
[2021-06-19] MEDS: INSULIN GLARGINE SYRINGE. SQ SCH (21:01)
[2021-06-20] VITALS (24 sets, daily range): BP systolic 105–134; BP diastolic 42–62
[2021-06-20] MEDS: PROPOFOL 100 ML IV PRN ×8 (01:07→22:27)
[2021-06-20] MEDS: INSULIN LISPRO 300 UNITS/3 ML VIAL. SQ SCH ×3 (05:24→17:33)
[2021-06-20 05:32] LABS: BASO % 0 % (0-3); EOS % 0 % (0-3); HEMATOCRIT 29.6 % (36.0-47.0); HEMOGLOBIN 9.6 g/dL (12.0-15.5); LYMPH # 0.3 x10^3/uL (1.0-4.8); LYMPH % 3 % (24-48); MEAN CORPUSCULAR HEMOGLOBIN 24 pg (25-35); MEAN CORPUSCULAR HGB CONC 33 g/dL (31-37); MEAN CORPUSCULAR VOLUME 75 fL (79-100); MONO # 0.5 x10^3/uL (0.0-1.1); MONO % 4 % (0-9); NEUT # 11.9 x10^3/uL (1.8-7.7); NEUT % 94 % (31-73); PLATELET COUNT 313 x10^3/uL (140-400); RED BLOOD COUNT 3.96 x10^6/uL (3.50-5.40); RED CELL DISTRIBUTION WIDTH 16.7 % (11.5-14.5); WHITE BLOOD COUNT 12.8 x10^3/uL (4.0-11.0)
[2021-06-20 05:41] LABS: CALCIUM 8.2 mg/dL (8.5-10.1); CREATININE 0.5 mg/dL (0.6-1.0); GFR 136.6; POTASSIUM 3.8 mmol/L (3.5-5.1)
[2021-06-20] MEDS: PIPERACILLIN/TAZOBACTAM 3.375 GM in IV NORMAL SALINE 50ML 50 ML IV SCH ×3 (05:54→18:16)
[2021-06-20] MEDS: methylPREDNISolone SOD SUCC PF 125 MG/2 ML VIAL. IV SCH ×3 (05:54→20:55)
--- NOTE | 2021-06-20 07:44 | PDOC ---
[employer] PROGRESS NOTE Date of Service DOS: DATE: 06/20/21 TIME: 07:42 Chief Complaint Chief Complaint Acute hypoxic respiratory failure requiring BiPAP COVID-19 pneumonia Morbid obesity History of diabetes mellitus type 2 History of hypertension Severe malnutrition Plan: Admit to ICU for further management Pulmonology consult Continue IV thiamine and vitamin C IV Solu-Medrol every 8 Pending ferritin, LDH, CRP, D-dimer labs Titrate O2 supplementation to maintain O2 saturation greater than 92% Initiate IV Remdesivir Lovenox for DVT prophylaxis Protonix GI prophylaxis ADA diet Full code Discussed with RN and SW Disposition ICU management as above Surrogate decision maker is the undesignated at this time History of Present Illness History of Present Illness Patient is a transfer from [facility] in [facility] 40-year-old female with past medical history of diabetes, hypertension, dy slipidemia and morbid obesity who complains of shortness of breath 1 week ago and went to urgent care and found out that she was positive for Covid. She came in at 5:00 in the morning at [facility] is very hypoxic and was found to be her oxygen saturation was 68% she was put on a nonrebreather 15 L and she was improved to 90 to 93%. Patient is [id number]. Patient is a poor historian. She does not know what kind of medication she takes for her medical history. 06/15/21 Patient seen and examined at bedside in the ICU. She was face time talking with family members. She was still on nonrebreather. Reports that she feels improved from yesterday. Otherwise no complaints. Pulmonary consulted. Plan of care discussed with bedside nurse. 06/16/21 Patient seen and examined at bedside. On Vapotherm doing well. Stable from yesterday. No major complaints. Pulmonary following. Plan of care discussed with bedside nurse. 06/17/21 Patient seen and examined at bedside. Remains on Vapotherm although O2 requirement decreasing. Continue current plan. Plan of care discussed bedside nurse. 06/18/21 Patient seen and examined at bedside. On 40 L Vapotherm and now requiring NRB in addition. Worsening oxygenation. Although leukocytosis persists since patient is afebrile and on broad-spectrum antibiotics suspect this is related to steroids. Remdesivir finishes today. Pulmonary following. Plan of care discussed with bedside nurse. 06/19/2021: Intubated overnight in ICU. Afebrile. Currently breathing FiO2 100%. Completed remdesivir. We will continue IV steroids and prophylactic antibiotics. 30 minutes critical care time spent reviewing charts, reviewing labs, reviewing imaging, and discussion with RN. 06/20/2021: Low-grade fever overnight (T-max 99.7 F). Remains on vent, FiO2 90%, PEEP 10. Continue treatment with IV steroids and prophylactic IV antibiotics. She has completed a course of remdesivir. Continue supportive care. Critical care time 30 minutes spent reviewing charts, reviewing labs, imaging, discussion with RN. Vitals/I&O Vitals/I&O: Vital Signs Date Time Temp Pulse Resp B/P (MAP) Pulse Ox O2 Delivery O2 Flow Rate FiO2 06/20/21 07:00 47 22 132/42 (72) 99 Ventilator 06/20/21 05:00 98.2 98.2 06/19/21 16:29 40.0 I & O 06/19/21 06/19/21 06/20/21 15:00 23:00 07:00 Intake Total 120 ml 887 ml 666 ml Output Total 750 ml 550 ml 900 ml Balance -630 ml 337 ml -234 ml Physical Exam General: mild distress, Other (Intubated and sedated) Heart: Regular rate, Normal S1, Normal S2 Lungs: Other (Intubated) Abdomen: Normal bowel sounds, Soft Extremities: No clubbing, No edema, Normal pulses Skin: No rashes, No significant lesion Labs Labs: Laboratory Tests Test 06/19/21 09:32 06/19/21 12:31 06/19/21 17:51 06/19/21 23:30 Glucose (Fingerstick) 231 mg/dL (70-99) 216 mg/dL (70-99) 208 mg/dL (70-99) 184 mg/dL (70-99) Test 06/20/21 05:15 White Blood Count 12.8 x10^3/uL (4.0-11.0) Red Blood Count 3.96 x10^6/uL (3.50-5.40) Hemoglobin 9.6 g/dL (12.0-15.5) Hematocrit 29.6 % (36.0-47.0) Mean Corpuscular Volume 75 fL (79-100) Mean Corpuscular Hemoglobin 24 pg (25-35) Mean Corpuscular Hemoglobin Concent 33 g/dL (31-37) Red Cell Distribution Width 16.7 % (11.5-14.5) Platelet Count 313 x10^3/uL (140-400) Neutrophils (%) (Auto) 94 % (31-73) Lymphocytes (%) (Auto) 3 % (24-48) Monocytes (%) (Auto) 4 % (0-9) Eosinophils (%) (Auto) 0 % (0-3) Basophils (%) (Auto) 0 % (0-3) Neutrophils # (Auto) 11.9 x10^3/uL (1.8-7.7) Lymphocytes # (Auto) 0.3 x10^3/uL (1.0-4.8) Monocytes # (Auto) 0.5 x10^3/uL (0.0-1.1) Eosinophils # (Auto) 0.0 x10^3/uL (0.0-0.7) Basophils # (Auto) 0.0 x10^3/uL (0.0-0.2) Sodium Level 147 mmol/L (136-145) Potassium Level 3.8 mmol/L (3.5-5.1) Chloride Level 112 mmol/L (98-107) Carbon Dioxide Level 34 mmol/L (21-32) Anion Gap 1 (6-14) Blood Urea Nitrogen 18 mg/dL (7-20) Creatinine 0.5 mg/dL (0.6-1.0) Estimated GFR (Cockcroft-Gault) 136.6 Glucose Level 201 mg/dL (70-99) Glucose (Fingerstick) 187 mg/dL (70-99) Calcium Level 8.2 mg/dL (8.5-10.1) Comment Review of Relevant I have reviewed the following items man (where applicable) has been applied. Medications: Current Medications Medications (Trade) Dose Ordered Sig/Jun Route PRN Reason Start Time Stop Time Status Last Admin Dose Admin Methylprednisolone Sodium Succinate (SOLU-Medrol 125MG VIAL) 60 mg Q8HRS IV 06/19/21 07:45 06/20/21 05:54 Pantoprazole Sodium (PROTONIX VIAL for IV PUSH) 40 mg DAILYAC IVP 06/19/21 09:30 06/19/21 09:16 Insulin Glargine (Lantus Syringe) 10 unit QHS SQ 06/19/21 21:00 06/19/21 21:01 Justifications for Admission Other Justification Acute hypoxic respiratory failure and Covid pneumonia CLAUDIO BORJA MD Jun 20, 2021 07:44
[2021-06-20 07:46] LABS: BASE EXCESS ABG 5 mmol/L (-3-3); HCO3 ABG 30 mmol/L (21-28); PCO2 ABG 42 mmHg (35-46); PO2 ABG 66 mmHg (75-108); SAT O2 ABG 92 % (92-99)
[2021-06-20] MEDS: PANTOPRAZOLE IV PUSH 40 MG VIAL. IVP SCH (08:33)
[2021-06-20] MEDS: ENOXAPARIN 40 MG/0.4 ML SYRINGE. SQ SCH ×2 (08:33→20:52)
[2021-06-20] MEDS: ASCORBIC ACID 1,000 MG TABLET PO SCH ×3 (08:33→20:57)
[2021-06-20] MEDS: LISINOPRIL 5 MG TABLET. PO SCH (08:34)
[2021-06-20] MEDS: THIAMINE 100 MG TABLET. PO SCH (08:34)
[2021-06-20] MEDS: ZINC SULFATE 220 MG CAPSULE. PO SCH (08:34)
[2021-06-20] MEDS: LACTOBACILLUS RHAMNOSUS GG 1 CAPSULE. PO SCH ×2 (08:34→20:57)
[2021-06-20] MEDS: GABAPENTIN 300 MG CAPSULE. PO SCH ×3 (08:34→20:56)
[2021-06-20 09:22] LABS: FIO2 ABG 100/VENT
--- NOTE | 2021-06-20 09:50 | PDOC ---
PULMONARY PROGRESS NOTES DATE: 06/20/21 TIME: 09:48 Subjective vent support 90% and PEEP of 10 intubated on 06/19/21 afebrile bradycardia on the monitor no overnight concerns from nursing Vitals Vital Signs Date Time Temp Pulse Resp B/P (MAP) Pulse Ox O2 Delivery O2 Flow Rate FiO2 06/20/21 09:00 46 22 117/58 (77) 99 Ventilator 06/20/21 08:00 97.6 97.6 06/19/21 16:29 40.0 Comments Visual exam done due to COVID-19. Intubation no paradoxical breathing. No respiratory distress. Obese no skin rash. No leg edema. Lungs: Other (Intubated) Labs Laboratory Tests Test 06/18/21 11:30 06/18/21 17:49 06/19/21 06:30 06/19/21 07:25 Glucose (Fingerstick) 184 mg/dL (70-99) 183 mg/dL (70-99) Albumin 1.8 g/dL (3.4-5.0) O2 Saturation 85 % (92-99) Arterial Blood pH 7.37 (7.35-7.45) Arterial Blood pCO2 at Patient Temp 49 mmHg (35-46) Arterial Blood pO2 at Patient Temp 57 mmHg (75-108) Arterial Blood HCO3 28 mmol/L (21-28) Arterial Blood Base Excess 2 mmol/L (-3-3) FiO2 100 Test 06/19/21 09:32 06/19/21 12:31 06/19/21 17:51 06/19/21 23:30 Glucose (Fingerstick) 231 mg/dL (70-99) 216 mg/dL (70-99) 208 mg/dL (70-99) 184 mg/dL (70-99) Test 06/20/21 05:15 06/20/21 07:30 White Blood Count 12.8 x10^3/uL (4.0-11.0) Red Blood Count 3.96 x10^6/uL (3.50-5.40) Hemoglobin 9.6 g/dL (12.0-15.5) Hematocrit 29.6 % (36.0-47.0) Mean Corpuscular Volume 75 fL (79-100) Mean Corpuscular Hemoglobin 24 pg (25-35) Mean Corpuscular Hemoglobin Concent 33 g/dL (31-37) Red Cell Distribution Width 16.7 % (11.5-14.5) Platelet Count 313 x10^3/uL (140-400) Neutrophils (%) (Auto) 94 % (31-73) Lymphocytes (%) (Auto) 3 % (24-48) Monocytes (%) (Auto) 4 % (0-9) Eosinophils (%) (Auto) 0 % (0-3) Basophils (%) (Auto) 0 % (0-3) Neutrophils # (Auto) 11.9 x10^3/uL (1.8-7.7) Lymphocytes # (Auto) 0.3 x10^3/uL (1.0-4.8) Monocytes # (Auto) 0.5 x10^3/uL (0.0-1.1) Eosinophils # (Auto) 0.0 x10^3/uL (0.0-0.7) Basophils # (Auto) 0.0 x10^3/uL (0.0-0.2) Sodium Level 147 mmol/L (136-145) Potassium Level 3.8 mmol/L (3.5-5.1) Chloride Level 112 mmol/L (98-107) Carbon Dioxide Level 34 mmol/L (21-32) Anion Gap 1 (6-14) Blood Urea Nitrogen 18 mg/dL (7-20) Creatinine 0.5 mg/dL (0.6-1.0) Estimated GFR (Cockcroft-Gault) 136.6 Glucose Level 201 mg/dL (70-99) Glucose (Fingerstick) 187 mg/dL (70-99) Calcium Level 8.2 mg/dL (8.5-10.1) O2 Saturation 92 % (92-99) Arterial Blood pH 7.46 (7.35-7.45) Arterial Blood pCO2 at Patient Temp 42 mmHg (35-46) Arterial Blood pO2 at Patient Temp 66 mmHg (75-108) Arterial Blood HCO3 30 mmol/L (21-28) Arterial Blood Base Excess 5 mmol/L (-3-3) FiO2 100/vent Laboratory Tests Test 06/19/21 12:31 06/19/21 17:51 06/19/21 23:30 06/20/21 05:15 Glucose (Fingerstick) 216 mg/dL (70-99) 208 mg/dL (70-99) 184 mg/dL (70-99) 187 mg/dL (70-99) White Blood Count 12.8 x10^3/uL (4.0-11.0) Red Blood Count 3.96 x10^6/uL (3.50-5.40) Hemoglobin 9.6 g/dL (12.0-15.5) Hematocrit 29.6 % (36.0-47.0) Mean Corpuscular Volume 75 fL (79-100) Mean Corpuscular Hemoglobin 24 pg (25-35) Mean Corpuscular Hemoglobin Concent 33 g/dL (31-37) Red Cell Distribution Width 16.7 % (11.5-14.5) Platelet Count 313 x10^3/uL (140-400) Neutrophils (%) (Auto) 94 % (31-73) Lymphocytes (%) (Auto) 3 % (24-48) Monocytes (%) (Auto) 4 % (0-9) Eosinophils (%) (Auto) 0 % (0-3) Basophils (%) (Auto) 0 % (0-3) Neutrophils # (Auto) 11.9 x10^3/uL (1.8-7.7) Lymphocytes # (Auto) 0.3 x10^3/uL (1.0-4.8) Monocytes # (Auto) 0.5 x10^3/uL (0.0-1.1) Eosinophils # (Auto) 0.0 x10^3/uL (0.0-0.7) Basophils # (Auto) 0.0 x10^3/uL (0.0-0.2) Sodium Level 147 mmol/L (136-145) Potassium Level 3.8 mmol/L (3.5-5.1) Chloride Level 112 mmol/L (98-107) Carbon Dioxide Level 34 mmol/L (21-32) Anion Gap 1 (6-14) Blood Urea Nitrogen 18 mg/dL (7-20) Creatinine 0.5 mg/dL (0.6-1.0) Estimated GFR (Cockcroft-Gault) 136.6 Glucose Level 201 mg/dL (70-99) Calcium Level 8.2 mg/dL (8.5-10.1) Test 06/20/21 07:30 O2 Saturation 92 % (92-99) Arterial Blood pH 7.46 (7.35-7.45) Arterial Blood pCO2 at Patient Temp 42 mmHg (35-46) Arterial Blood pO2 at Patient Temp 66 mmHg (75-108) Arterial Blood HCO3 30 mmol/L (21-28) Arterial Blood Base Excess 5 mmol/L (-3-3) FiO2 100/vent Medications Active Scripts Medications Dose Route/Sig Max Daily Dose Days Date Category Cyclobenzaprine Hcl 10 Mg Tablet 10 Mg PO TID 06/15/21 Reported Meloxicam 15 Mg Tablet 15 Mg PO DAILY 06/15/21 Reported Fluticasone Propionate Nasal [place] (Fluticasone Propionate) 16 Gm [place].susp 1 [place] NS DAILY 06/15/21 Reported Loratadine 10 Mg Tablet 10 Mg PO DAILY 06/15/21 Reported Furosemide 20 Mg Tablet 20 Mg PO DAILY 06/15/21 Reported Gabapentin (Gabapentin) 300 Mg Capsule 300 Mg PO TID 06/15/21 Reported Gabapentin (Gabapentin) 300 Mg Capsule 300 Mg PO TID 06/15/21 Reported Lisinopril 5 Mg Tablet 1 Tab PO DAILY 06/15/21 Reported Metformin Hcl 500 Mg Tablet 500 Mg PO BIDWMEALS 06/15/21 Reported Ozempic (Semaglutide) 0.25 Mg/0.2 Ml Pen.injctr 0.25 Mg SQ WEEKLY 06/15/21 Reported Impression . 1. Acute hypoxic respiratory failure secondary to ARDS/COVID-19 infection, worsening intubated 06/19/[address] of chest secondary to COVID-19 infection/ARDS 3. Diabetes type 2 with hyperglycemia 4. Hypertension 5. Hyperlipdemia 6. Obesity Plan . Updated 06/20/21 Continue current vent support /% Follow ABG/CXR --reviewed no changes Continue steroids will need full 10-day course, with slow taper Continue antibiotics, currently on Zosyn S/P remdesivir Continue zinc/vitamin C Diabetes per PCP Continue tube feeding for nutritional support DVT/GI prophylaxis: Lovenox Discussed with RN and RT Critical care time 30min NICOLETTE MORALES MD Jun 20, 2021 09:50
--- NOTE | 2021-06-20 16:10 | NUR ---
SS following up with discharge planning. SS reviewed pt chart and discussed with pt RN. Pt is currently on the vent at 90%. COVID19 positive. Pt on IV Solu Medrol and IV Zosyn. Pt on Versed, Fentanyl, and Propofol. Pt on tube feeds. Self pay. Med Assist following. Not stable. SS will continue to follow for discharge planning.
[2021-06-20] MEDS: MIDAZOLAM 100mg/100ml NS BAG 100 ML IV PRN (20:50)
[2021-06-20] MEDS: INSULIN GLARGINE SYRINGE. SQ SCH (20:52)
[2021-06-21] VITALS (24 sets, daily range): BP systolic 106–140; BP diastolic 51–64
[2021-06-21] MEDS: PIPERACILLIN/TAZOBACTAM 3.375 GM in IV NORMAL SALINE 50ML 50 ML IV SCH ×4 (00:02→16:01)
[2021-06-21] MEDS: INSULIN LISPRO 300 UNITS/3 ML VIAL. SQ SCH ×4 (00:16→16:03)
[2021-06-21] MEDS: PROPOFOL 100 ML IV PRN ×8 (00:36→21:26)
[2021-06-21] MEDS: methylPREDNISolone SOD SUCC PF 125 MG/2 ML VIAL. IV SCH ×3 (05:44→21:05)
--- NOTE | 2021-06-21 06:10 | PDOC ---
PULMONARY PROGRESS NOTES DATE: 06/21/21 TIME: 06:08 Subjective Remains on vent support, FiO2 70% PEEP of 10 Afebrile Overnight concerns from nursing Vitals Vital Signs Date Time Temp Pulse Resp B/P (MAP) Pulse Ox O2 Delivery O2 Flow Rate FiO2 06/21/21 04:00 Mechanical Ventilator 06/21/21 04:00 96.5 51 21 106/52 (70) 99 96.5 06/21/21 03:20 40.0 Comments Visual exam done due to COVID-19. Intubated no paradoxical breathing. No respiratory distress. Obese no skin rash. No leg edema. Lungs: Other (Intubated) Labs Laboratory Tests Test 06/19/21 06:30 06/19/21 07:25 06/19/21 09:32 06/19/21 12:31 Albumin 1.8 g/dL (3.4-5.0) O2 Saturation 85 % (92-99) Arterial Blood pH 7.37 (7.35-7.45) Arterial Blood pCO2 at Patient Temp 49 mmHg (35-46) Arterial Blood pO2 at Patient Temp 57 mmHg (75-108) Arterial Blood HCO3 28 mmol/L (21-28) Arterial Blood Base Excess 2 mmol/L (-3-3) FiO2 100 Glucose (Fingerstick) 231 mg/dL (70-99) 216 mg/dL (70-99) Test 06/19/21 17:51 06/19/21 23:30 06/20/21 05:15 06/20/21 07:30 Glucose (Fingerstick) 208 mg/dL (70-99) 184 mg/dL (70-99) 187 mg/dL (70-99) White Blood Count 12.8 x10^3/uL (4.0-11.0) Red Blood Count 3.96 x10^6/uL (3.50-5.40) Hemoglobin 9.6 g/dL (12.0-15.5) Hematocrit 29.6 % (36.0-47.0) Mean Corpuscular Volume 75 fL (79-100) Mean Corpuscular Hemoglobin 24 pg (25-35) Mean Corpuscular Hemoglobin Concent 33 g/dL (31-37) Red Cell Distribution Width 16.7 % (11.5-14.5) Platelet Count 313 x10^3/uL (140-400) Neutrophils (%) (Auto) 94 % (31-73) Lymphocytes (%) (Auto) 3 % (24-48) Monocytes (%) (Auto) 4 % (0-9) Eosinophils (%) (Auto) 0 % (0-3) Basophils (%) (Auto) 0 % (0-3) Neutrophils # (Auto) 11.9 x10^3/uL (1.8-7.7) Lymphocytes # (Auto) 0.3 x10^3/uL (1.0-4.8) Monocytes # (Auto) 0.5 x10^3/uL (0.0-1.1) Eosinophils # (Auto) 0.0 x10^3/uL (0.0-0.7) Basophils # (Auto) 0.0 x10^3/uL (0.0-0.2) Sodium Level 147 mmol/L (136-145) Potassium Level 3.8 mmol/L (3.5-5.1) Chloride Level 112 mmol/L (98-107) Carbon Dioxide Level 34 mmol/L (21-32) Anion Gap 1 (6-14) Blood Urea Nitrogen 18 mg/dL (7-20) Creatinine 0.5 mg/dL (0.6-1.0) Estimated GFR (Cockcroft-Gault) 136.6 Glucose Level 201 mg/dL (70-99) Calcium Level 8.2 mg/dL (8.5-10.1) O2 Saturation 92 % (92-99) Arterial Blood pH 7.46 (7.35-7.45) Arterial Blood pCO2 at Patient Temp 42 mmHg (35-46) Arterial Blood pO2 at Patient Temp 66 mmHg (75-108) Arterial Blood HCO3 30 mmol/L (21-28) Arterial Blood Base Excess 5 mmol/L (-3-3) FiO2 100/vent Test 06/20/21 11:52 06/20/21 17:30 06/21/21 00:13 Glucose (Fingerstick) 183 mg/dL (70-99) 193 mg/dL (70-99) 192 mg/dL (70-99) Laboratory Tests Test 06/20/21 07:30 06/20/21 11:52 06/20/21 17:30 06/21/21 00:13 O2 Saturation 92 % (92-99) Arterial Blood pH 7.46 (7.35-7.45) Arterial Blood pCO2 at Patient Temp 42 mmHg (35-46) Arterial Blood pO2 at Patient Temp 66 mmHg (75-108) Arterial Blood HCO3 30 mmol/L (21-28) Arterial Blood Base Excess 5 mmol/L (-3-3) FiO2 100/vent Glucose (Fingerstick) 183 mg/dL (70-99) 193 mg/dL (70-99) 192 mg/dL (70-99) Medications Active Scripts Medications Dose Route/Sig Max Daily Dose Days Date Category Cyclobenzaprine Hcl 10 Mg Tablet 10 Mg PO TID 06/15/21 Reported Meloxicam 15 Mg Tablet 15 Mg PO DAILY 06/15/21 Reported Fluticasone Propionate Nasal [place] (Fluticasone Propionate) 16 Gm [place].susp 1 [place] NS DAILY 06/15/21 Reported Loratadine 10 Mg Tablet 10 Mg PO DAILY 06/15/21 Reported Furosemide 20 Mg Tablet 20 Mg PO DAILY 06/15/21 Reported Gabapentin (Gabapentin) 300 Mg Capsule 300 Mg PO TID 06/15/21 Reported Gabapentin (Gabapentin) 300 Mg Capsule 300 Mg PO TID 06/15/21 Reported Lisinopril 5 Mg Tablet 1 Tab PO DAILY 06/15/21 Reported Metformin Hcl 500 Mg Tablet 500 Mg PO BIDWMEALS 06/15/21 Reported Ozempic (Semaglutide) 0.25 Mg/0.2 Ml Pen.injctr 0.25 Mg SQ WEEKLY 06/15/21 Reported Comments Chest x-ray done 06/21/2021 was reviewed by me. Diffuse unchanged bilateral infiltrates. Impression . 1. Acute hypoxic respiratory failure secondary to ARDS/COVID-19 infection, worsening intubated 06/19/[address] of chest secondary to COVID-19 infection/ARDS 3. Diabetes type 2 with hyperglycemia 4. Hypertension 5. Hyperlipdemia 6. Obesity Plan . Updated 06/21/21 Continue current vent support /10/% Follow ABG/CXR --make changes as needed Continue steroids will need full 10-day course, with slow taper Continue antibiotics, currently on Zosyn S/P remdesivir Continue zinc/vitamin C Continue tube feeding for nutritional support DVT/GI prophylaxis: Lovenox Discussed with RN and RT Critical care time 30min NICOLETTE MORALES MD Jun 21, 2021 06:10
--- NOTE | 2021-06-21 07:26 | PDOC ---
[employer] PROGRESS NOTE Date of Service DOS: DATE: 06/21/21 TIME: 07:20 Chief Complaint Chief Complaint Acute hypoxic respiratory failure requiring BiPAP COVID-19 pneumonia Morbid obesity History of diabetes mellitus type 2 History of hypertension Severe malnutrition Plan: Admit to ICU for further management Pulmonology consult Continue IV thiamine and vitamin C IV Solu-Medrol every 8 Pending ferritin, LDH, CRP, D-dimer labs Titrate O2 supplementation to maintain O2 saturation greater than 92% Initiate IV Remdesivir Lovenox for DVT prophylaxis Protonix GI prophylaxis ADA diet Full code Discussed with RN and SW Disposition ICU management as above Surrogate decision maker is the undesignated at this time History of Present Illness History of Present Illness Patient is a transfer from [facility] in [facility] 40-year-old female with past medical history of diabetes, hypertension, dy slipidemia and morbid obesity who complains of shortness of breath 1 week ago and went to urgent care and found out that she was positive for Covid. She came in at 5:00 in the morning at [facility] is very hypoxic and was found to be her oxygen saturation was 68% she was put on a nonrebreather 15 L and she was improved to 90 to 93%. Patient is [id number]. Patient is a poor historian. She does not know what kind of medication she takes for her medical history. 06/15/21 Patient seen and examined at bedside in the ICU. She was face time talking with family members. She was still on nonrebreather. Reports that she feels improved from yesterday. Otherwise no complaints. Pulmonary consulted. Plan of care discussed with bedside nurse. 06/16/21 Patient seen and examined at bedside. On Vapotherm doing well. Stable from yesterday. No major complaints. Pulmonary following. Plan of care discussed with bedside nurse. 06/17/21 Patient seen and examined at bedside. Remains on Vapotherm although O2 requirement decreasing. Continue current plan. Plan of care discussed bedside nurse. 06/18/21 Patient seen and examined at bedside. On 40 L Vapotherm and now requiring NRB in addition. Worsening oxygenation. Although leukocytosis persists since patient is afebrile and on broad-spectrum antibiotics suspect this is related to steroids. Remdesivir finishes today. Pulmonary following. Plan of care discussed with bedside nurse. 06/19/2021: Intubated overnight in ICU. Afebrile. Currently breathing FiO2 100%. Completed remdesivir. We will continue IV steroids and prophylactic antibiotics. 30 minutes critical care time spent reviewing charts, reviewing labs, reviewing imaging, and discussion with RN. 06/20/2021: Low-grade fever overnight (T-max 99.7 F). Remains on vent, FiO2 90%, PEEP 10. Continue treatment with IV steroids and prophylactic IV antibiotics. She has completed a course of remdesivir. Continue supportive care. Critical care time 30 minutes spent reviewing charts, reviewing labs, imaging, discussion with RN. 06/21/21: Afebrile. On vent with FiO2 80%, PEEP 10. Continue treatment with prophylactic antibiotics steroids total of 10 day course (steroid taper to begin 06/24). Completed course remdesivir. Continue supportive care. Critical care time 30 minutes spent reviewing charts, reviewing labs, imaging, discussion with RN. Vitals/I&O Vitals/I&O: Vital Signs Date Time Temp Pulse Resp B/P (MAP) Pulse Ox O2 Delivery O2 Flow Rate FiO2 06/21/21 06:00 42 21 119/62 (81) 100 Ventilator 06/21/21 04:00 96.5 96.5 06/21/21 03:50 40.0 I & O 06/20/21 06/20/21 06/21/21 15:00 23:00 07:00 Intake Total 1166 ml 1705.9 ml Output Total 300 ml 230 ml 315 ml Balance -300 ml 936 ml 1390.9 ml Physical Exam General: No acute distress, Other (Intubated and sedated) Heart: Regular rate, Normal S1, Normal S2 Lungs: Other (Intubated) Abdomen: Normal bowel sounds, Soft Extremities: No clubbing, No edema, Normal pulses Skin: No rashes, No significant lesion Labs Labs: Laboratory Tests Test 06/20/21 07:30 06/20/21 11:52 06/20/21 17:30 06/21/21 00:13 O2 Saturation 92 % (92-99) Arterial Blood pH 7.46 (7.35-7.45) Arterial Blood pCO2 at Patient Temp 42 mmHg (35-46) Arterial Blood pO2 at Patient Temp 66 mmHg (75-108) Arterial Blood HCO3 30 mmol/L (21-28) Arterial Blood Base Excess 5 mmol/L (-3-3) FiO2 100/vent Glucose (Fingerstick) 183 mg/dL (70-99) 193 mg/dL (70-99) 192 mg/dL (70-99) Test 06/21/21 06:25 Glucose (Fingerstick) 186 mg/dL (70-99) Comment Review of Relevant I have reviewed the following items man (where applicable) has been applied. Justifications for Admission Other Justification Acute hypoxic respiratory failure and Covid pneumonia CLAUDIO BORJA MD Jun 21, 2021 07:26
--- NOTE | 2021-06-21 07:28 | RAD ---
XR CHEST 1V INDICATION: Reason: resp. failure 102 / Spl. Instructions: / History: . COMPARISON STUDY: 06/19/2021. FINDINGS: Life Support Devices: Stable endotracheal tube, enteric tube, right PICC. Lungs: Low lung volume. Stable diffuse bilateral opacities. Pleura: No pleural effusion or pneumothorax. Heart and Mediastinum: Stable cardiomediastinal silhouette and great vessels. Bones and Soft Tissues: Stable regional skeleton and soft tissues. IMPRESSION: 1. Stable life support devices. 2. Stable diffuse bilateral opacities. Electronically signed by: Jose Antonio Astorga MD (06/21/2021 7:25 AM) [facility]
[2021-06-21 08:32] LABS: BASE EXCESS ABG 5 mmol/L (-3-3); HCO3 ABG 29 mmol/L (21-28); PCO2 ABG 40 mmHg (35-46); PO2 ABG 58 mmHg (75-108); SAT O2 ABG 89 % (92-99)
[2021-06-21] MEDS: PANTOPRAZOLE IV PUSH 40 MG VIAL. IVP SCH (08:41)
[2021-06-21] MEDS: ASCORBIC ACID 1,000 MG TABLET PO SCH ×3 (08:42→21:04)
[2021-06-21] MEDS: ENOXAPARIN 40 MG/0.4 ML SYRINGE. SQ SCH ×2 (08:42→21:04)
[2021-06-21] MEDS: ZINC SULFATE 220 MG CAPSULE. PO SCH (08:43)
[2021-06-21] MEDS: LACTOBACILLUS RHAMNOSUS GG 1 CAPSULE. PO SCH ×2 (08:43→21:00)
[2021-06-21] MEDS: THIAMINE 100 MG TABLET. PO SCH (08:43)
[2021-06-21] MEDS: GABAPENTIN 300 MG CAPSULE. PO SCH ×3 (08:43→21:05)
[2021-06-21] MEDS: LISINOPRIL 5 MG TABLET. PO SCH (08:43)
[2021-06-21 09:24] LABS: FIO2 ABG 70
--- NOTE | 2021-06-21 15:31 | NUR ---
SS following up with discharge planning. SS reviewed pt chart and discussed with pt RN. Pt is currently on the vent at 100%. COVID19 positive. Pt on IV Solu Medrol and IV Zosyn. Pt on Versed, Fentanyl, and Propofol. Pt on tube feeds. Self pay. Med Assist following. Not stable. SS will continue to follow for discharge planning.
[2021-06-21] MEDS: INSULIN GLARGINE SYRINGE. SQ SCH (21:07)
[2021-06-22] VITALS (25 sets, daily range): BP systolic 96–144; BP diastolic 38–97
[2021-06-22] MEDS: INSULIN LISPRO 300 UNITS/3 ML VIAL. SQ SCH ×4 (00:20→17:29)
[2021-06-22] MEDS: PIPERACILLIN/TAZOBACTAM 3.375 GM in IV NORMAL SALINE 50ML 50 ML IV SCH ×4 (00:21→17:21)
[2021-06-22] MEDS: PROPOFOL 100 ML IV PRN ×8 (00:46→21:45)
--- NOTE | 2021-06-22 06:20 | PDOC ---
[employer] PROGRESS NOTE Date of Service DOS: DATE: 06/22/21 TIME: 06:18 Chief Complaint Chief Complaint Acute hypoxic respiratory failure requiring BiPAP COVID-19 pneumonia Morbid obesity History of diabetes mellitus type 2 History of hypertension Severe malnutrition Plan: Admit to ICU for further management Pulmonology consult Continue IV thiamine and vitamin C IV Solu-Medrol every 8 Pending ferritin, LDH, CRP, D-dimer labs Titrate O2 supplementation to maintain O2 saturation greater than 92% Initiate IV Remdesivir Lovenox for DVT prophylaxis Protonix GI prophylaxis ADA diet Full code Discussed with RN and SW Disposition ICU management as above Surrogate decision maker is the undesignated at this time History of Present Illness History of Present Illness Patient is a transfer from [facility] in [facility] 40-year-old female with past medical history of diabetes, hypertension, dy slipidemia and morbid obesity who complains of shortness of breath 1 week ago and went to urgent care and found out that she was positive for Covid. She came in at 5:00 in the morning at [facility] is very hypoxic and was found to be her oxygen saturation was 68% she was put on a nonrebreather 15 L and she was improved to 90 to 93%. Patient is [id number]. Patient is a poor historian. She does not know what kind of medication she takes for her medical history. 06/15/21 Patient seen and examined at bedside in the ICU. She was face time talking with family members. She was still on nonrebreather. Reports that she feels improved from yesterday. Otherwise no complaints. Pulmonary consulted. Plan of care discussed with bedside nurse. 06/16/21 Patient seen and examined at bedside. On Vapotherm doing well. Stable from yesterday. No major complaints. Pulmonary following. Plan of care discussed with bedside nurse. 06/17/21 Patient seen and examined at bedside. Remains on Vapotherm although O2 requirement decreasing. Continue current plan. Plan of care discussed bedside nurse. 06/18/21 Patient seen and examined at bedside. On 40 L Vapotherm and now requiring NRB in addition. Worsening oxygenation. Although leukocytosis persists since patient is afebrile and on broad-spectrum antibiotics suspect this is related to steroids. Remdesivir finishes today. Pulmonary following. Plan of care discussed with bedside nurse. 06/19/2021: Intubated overnight in ICU. Afebrile. Currently breathing FiO2 100%. Completed remdesivir. We will continue IV steroids and prophylactic antibiotics. 30 minutes critical care time spent reviewing charts, reviewing labs, reviewing imaging, and discussion with RN. 06/20/2021: Low-grade fever overnight (T-max 99.7 F). Remains on vent, FiO2 90%, PEEP 10. Continue treatment with IV steroids and prophylactic IV antibiotics. She has completed a course of remdesivir. Continue supportive care. Critical care time 30 minutes spent reviewing charts, reviewing labs, imaging, discussion with RN. 06/21/21: Afebrile. On vent with FiO2 80%, PEEP 10. Continue treatment with prophylactic antibiotics steroids total of 10 day course (steroid taper to begin 06/24). Completed course remdesivir. Continue supportive care. Critical care time 30 minutes spent reviewing charts, reviewing labs, imaging, discussion with RN. 06/22/2021: Afebrile. Remains on ventilator with FiO2 70%, PEEP 10. Completed remdesivir. Continue antibiotics, steroids with slow taper. Continue supportive care. Critical care time 30 minutes spent reviewing charts, reviewing labs, imaging, discussion with RN. Vitals/I&O Vitals/I&O: Vital Signs Date Time Temp Pulse Resp B/P (MAP) Pulse Ox O2 Delivery O2 Flow Rate FiO2 06/22/21 05:02 100 Ventilator 06/22/21 05:00 66 22 132/57 (82) 06/22/21 04:12 40.0 06/22/21 04:02 98.5 98.5 I & O 06/21/21 06/21/21 06/22/21 15:00 23:00 07:00 Intake Total 420 ml 1387 ml 358 ml Output Total 255 ml 250 ml 370 ml Balance 165 ml 1137 ml -12 ml Physical Exam General: No acute distress, Other (Intubated and sedated) Heart: Regular rate, Normal S1, Normal S2 Lungs: Other (Intubated) Abdomen: Normal bowel sounds, Soft Extremities: No clubbing, No edema, Normal pulses Skin: No rashes, No significant lesion Labs Labs: Laboratory Tests Test 06/21/21 06:25 06/21/21 08:28 06/21/21 12:21 06/21/21 15:55 Glucose (Fingerstick) 186 mg/dL (70-99) 201 mg/dL (70-99) 205 mg/dL (70-99) O2 Saturation 89 % (92-99) Arterial Blood pH 7.48 (7.35-7.45) Arterial Blood pCO2 at Patient Temp 40 mmHg (35-46) Arterial Blood pO2 at Patient Temp 58 mmHg (75-108) Arterial Blood HCO3 29 mmol/L (21-28) Arterial Blood Base Excess 5 mmol/L (-3-3) FiO2 70 Test 06/22/21 00:17 Glucose (Fingerstick) 205 mg/dL (70-99) Comment Review of Relevant I have reviewed the following items man (where applicable) has been applied. Justifications for Admission Other Justification Acute hypoxic respiratory failure and Covid pneumonia CLAUDIO BORJA MD Jun 22, 2021 06:20
[2021-06-22] MEDS: methylPREDNISolone SOD SUCC PF 125 MG/2 ML VIAL. IV SCH ×3 (06:30→20:57)
[2021-06-22] MEDS: MIDAZOLAM 100mg/100ml NS BAG 100 ML IV PRN ×2 (06:31→23:29)
[2021-06-22 07:37] LABS: BASE EXCESS ABG 5 mmol/L (-3-3); HCO3 ABG 30 mmol/L (21-28); PCO2 ABG 46 mmHg (35-46); PO2 ABG 58 mmHg (75-108); SAT O2 ABG 88 % (92-99)
[2021-06-22] MEDS: PANTOPRAZOLE IV PUSH 40 MG VIAL. IVP SCH (08:15)
[2021-06-22] MEDS: THIAMINE 100 MG TABLET. PO SCH (08:15)
[2021-06-22] MEDS: ZINC SULFATE 220 MG CAPSULE. PO SCH (08:15)
[2021-06-22] MEDS: ENOXAPARIN 40 MG/0.4 ML SYRINGE. SQ SCH ×2 (08:16→20:57)
[2021-06-22] MEDS: LISINOPRIL 5 MG TABLET. PO SCH (08:16)
[2021-06-22] MEDS: ASCORBIC ACID 1,000 MG TABLET PO SCH ×3 (08:16→20:58)
[2021-06-22] MEDS: GABAPENTIN 300 MG CAPSULE. PO SCH ×3 (08:17→20:57)
[2021-06-22 08:39] LABS: FIO2 ABG 70
--- NOTE | 2021-06-22 09:47 | PDOC ---
PULMONARY PROGRESS NOTES DATE: 06/22/21 TIME: 09:46 Subjective Remains on vent support, FiO2 70% PEEP of 10 Afebrile Overnight concerns from nursing Vitals Vital Signs Date Time Temp Pulse Resp B/P (MAP) Pulse Ox O2 Delivery O2 Flow Rate FiO2 06/22/21 09:07 98 Ventilator 06/22/21 09:00 55 22 135/68 (90) 06/22/21 08:00 98.1 98.1 06/22/21 04:12 40.0 Comments Visual exam done due to COVID-19. Intubated no paradoxical breathing. No respiratory distress. Obese no skin rash. No leg edema. Labs Laboratory Tests Test 06/20/21 11:52 06/20/21 17:30 06/21/21 00:13 06/21/21 06:25 Glucose (Fingerstick) 183 mg/dL (70-99) 193 mg/dL (70-99) 192 mg/dL (70-99) 186 mg/dL (70-99) Test 06/21/21 08:28 06/21/21 12:21 06/21/21 15:55 06/22/21 00:17 O2 Saturation 89 % (92-99) Arterial Blood pH 7.48 (7.35-7.45) Arterial Blood pCO2 at Patient Temp 40 mmHg (35-46) Arterial Blood pO2 at Patient Temp 58 mmHg (75-108) Arterial Blood HCO3 29 mmol/L (21-28) Arterial Blood Base Excess 5 mmol/L (-3-3) FiO2 70 Glucose (Fingerstick) 201 mg/dL (70-99) 205 mg/dL (70-99) 205 mg/dL (70-99) Test 06/22/21 07:33 06/22/21 07:34 O2 Saturation 88 % (92-99) Arterial Blood pH 7.43 (7.35-7.45) Arterial Blood pCO2 at Patient Temp 46 mmHg (35-46) Arterial Blood pO2 at Patient Temp 58 mmHg (75-108) Arterial Blood HCO3 30 mmol/L (21-28) Arterial Blood Base Excess 5 mmol/L (-3-3) FiO2 70 Glucose (Fingerstick) 146 mg/dL (70-99) Laboratory Tests Test 06/21/21 12:21 06/21/21 15:55 06/22/21 00:17 06/22/21 07:33 Glucose (Fingerstick) 201 mg/dL (70-99) 205 mg/dL (70-99) 205 mg/dL (70-99) O2 Saturation 88 % (92-99) Arterial Blood pH 7.43 (7.35-7.45) Arterial Blood pCO2 at Patient Temp 46 mmHg (35-46) Arterial Blood pO2 at Patient Temp 58 mmHg (75-108) Arterial Blood HCO3 30 mmol/L (21-28) Arterial Blood Base Excess 5 mmol/L (-3-3) FiO2 70 Test 06/22/21 07:34 Glucose (Fingerstick) 146 mg/dL (70-99) Medications Active Scripts Medications Dose Route/Sig Max Daily Dose Days Date Category Cyclobenzaprine Hcl 10 Mg Tablet 10 Mg PO TID 06/15/21 Reported Meloxicam 15 Mg Tablet 15 Mg PO DAILY 06/15/21 Reported Fluticasone Propionate Nasal [place] (Fluticasone Propionate) 16 Gm [place].susp 1 [place] NS DAILY 06/15/21 Reported Loratadine 10 Mg Tablet 10 Mg PO DAILY 06/15/21 Reported Furosemide 20 Mg Tablet 20 Mg PO DAILY 06/15/21 Reported Gabapentin (Gabapentin) 300 Mg Capsule 300 Mg PO TID 06/15/21 Reported Gabapentin (Gabapentin) 300 Mg Capsule 300 Mg PO TID 06/15/21 Reported Lisinopril 5 Mg Tablet 1 Tab PO DAILY 06/15/21 Reported Metformin Hcl 500 Mg Tablet 500 Mg PO BIDWMEALS 06/15/21 Reported Ozempic (Semaglutide) 0.25 Mg/0.2 Ml Pen.injctr 0.25 Mg SQ WEEKLY 06/15/21 Reported Comments Chest x-ray done 06/21/2021 was reviewed by me. Diffuse unchanged bilateral infiltrates. Impression . 1. Acute hypoxic respiratory failure secondary to ARDS/COVID-19 infection, worsening intubated 06/19/[address] of chest secondary to COVID-19 infection/ARDS 3. Diabetes type 2 with hyperglycemia 4. Hypertension 5. Hyperlipdemia 6. Obesity Plan . Updated 06/22/21 Continue current vent support /500/10/70% Follow ABG/CXR --make changes as needed Continue steroids will need full 10-day course, with slow taper Continue antibiotics, currently on Zosyn S/P remdesivir Continue zinc/vitamin C Continue tube feeding for nutritional support DVT/GI prophylaxis: Lovenox Discussed with RN and RT NICOLETTE MORALES MD Jun 22, 2021 09:47
--- NOTE | 2021-06-22 10:05 | NUR ---
SS following up with discharge planning. SS reviewed pt chart and discussed with pt RN. Pt is currently on the vent at 70%. COVID19 positive. Pt on IV Solu Medrol and IV Zosyn. Pt on Versed, Fentanyl, and Propofol. Pt on tube feeds. Self pay. Med Assist following. Not stable. SS will continue to follow for discharge planning.
[2021-06-22] MEDS: INSULIN GLARGINE SYRINGE. SQ SCH (22:28)
[2021-06-23] VITALS (23 sets, daily range): BP systolic 104–153; BP diastolic 46–84
[2021-06-23] MEDS: PROPOFOL 100 ML IV PRN ×7 (00:54→22:07)
[2021-06-23] MEDS: PIPERACILLIN/TAZOBACTAM 3.375 GM in IV NORMAL SALINE 50ML 50 ML IV SCH ×4 (00:55→17:34)
[2021-06-23] MEDS: INSULIN LISPRO 300 UNITS/3 ML VIAL. SQ SCH ×4 (00:58→17:50)
[2021-06-23] MEDS: methylPREDNISolone SOD SUCC PF 125 MG/2 ML VIAL. IV SCH ×3 (05:55→21:40)
[2021-06-23 06:39] LABS: BASO % 0 % (0-3); EOS % 0 % (0-3); HEMATOCRIT 31.8 % (36.0-47.0); HEMOGLOBIN 10.4 g/dL (12.0-15.5); LYMPH # 0.3 x10^3/uL (1.0-4.8); LYMPH % 4 % (24-48); MEAN CORPUSCULAR HEMOGLOBIN 25 pg (25-35); MEAN CORPUSCULAR HGB CONC 33 g/dL (31-37); MEAN CORPUSCULAR VOLUME 76 fL (79-100); MONO # 0.4 x10^3/uL (0.0-1.1); MONO % 4 % (0-9); NEUT % 92 % (31-73); PLATELET COUNT 236 x10^3/uL (140-400); RED BLOOD COUNT 4.21 x10^6/uL (3.50-5.40); RED CELL DISTRIBUTION WIDTH 16.9 % (11.5-14.5); WHITE BLOOD COUNT 8.7 x10^3/uL (4.0-11.0)
[2021-06-23 06:41] LABS: CALCIUM 7.8 mg/dL (8.5-10.1); CREATININE 0.4 mg/dL (0.6-1.0); GFR 176.8; POTASSIUM 4.2 mmol/L (3.5-5.1)
--- NOTE | 2021-06-23 07:08 | PDOC ---
[employer] PROGRESS NOTE Date of Service DOS: DATE: 06/23/21 TIME: 07:05 Chief Complaint Chief Complaint Acute hypoxic respiratory failure requiring BiPAP COVID-19 pneumonia Morbid obesity History of diabetes mellitus type 2 History of hypertension Severe malnutrition Plan: Admit to ICU for further management Pulmonology consult Continue IV thiamine and vitamin C IV Solu-Medrol every 8 Pending ferritin, LDH, CRP, D-dimer labs Titrate O2 supplementation to maintain O2 saturation greater than 92% Initiate IV Remdesivir Lovenox for DVT prophylaxis Protonix GI prophylaxis ADA diet Full code Discussed with RN and SW Disposition ICU management as above Surrogate decision maker is the undesignated at this time History of Present Illness History of Present Illness Patient is a transfer from [facility] in [facility] 40-year-old female with past medical history of diabetes, hypertension, dy slipidemia and morbid obesity who complains of shortness of breath 1 week ago and went to urgent care and found out that she was positive for Covid. She came in at 5:00 in the morning at [facility] is very hypoxic and was found to be her oxygen saturation was 68% she was put on a nonrebreather 15 L and she was improved to 90 to 93%. Patient is [id number]. Patient is a poor historian. She does not know what kind of medication she takes for her medical history. 06/15/21 Patient seen and examined at bedside in the ICU. She was face time talking with family members. She was still on nonrebreather. Reports that she feels improved from yesterday. Otherwise no complaints. Pulmonary consulted. Plan of care discussed with bedside nurse. 06/16/21 Patient seen and examined at bedside. On Vapotherm doing well. Stable from yesterday. No major complaints. Pulmonary following. Plan of care discussed with bedside nurse. 06/17/21 Patient seen and examined at bedside. Remains on Vapotherm although O2 requirement decreasing. Continue current plan. Plan of care discussed bedside nurse. 06/18/21 Patient seen and examined at bedside. On 40 L Vapotherm and now requiring NRB in addition. Worsening oxygenation. Although leukocytosis persists since patient is afebrile and on broad-spectrum antibiotics suspect this is related to steroids. Remdesivir finishes today. Pulmonary following. Plan of care discussed with bedside nurse. 06/19/2021: Intubated overnight in ICU. Afebrile. Currently breathing FiO2 100%. Completed remdesivir. We will continue IV steroids and prophylactic antibiotics. 30 minutes critical care time spent reviewing charts, reviewing labs, reviewing imaging, and discussion with RN. 06/20/2021: Low-grade fever overnight (T-max 99.7 F). Remains on vent, FiO2 90%, PEEP 10. Continue treatment with IV steroids and prophylactic IV antibiotics. She has completed a course of remdesivir. Continue supportive care. Critical care time 30 minutes spent reviewing charts, reviewing labs, imaging, discussion with RN. 06/21/21: Afebrile. On vent with FiO2 80%, PEEP 10. Continue treatment with prophylactic antibiotics steroids total of 10 day course (steroid taper to begin 06/24). Completed course remdesivir. Continue supportive care. Critical care time 30 minutes spent reviewing charts, reviewing labs, imaging, discussion with RN. 06/22/2021: Afebrile. Remains on ventilator with FiO2 70%, PEEP 10. Completed remdesivir. Continue antibiotics, steroids with slow taper. Continue supportive care. Critical care time 30 minutes spent reviewing charts, reviewing labs, imaging, discussion with RN. 06/23/2021: Afebrile. On vent with FiO2 of 70, PEEP 10. Continue antibiotics for diffuse bilateral opacities. Continue steroids with slow taper to begin tomorrow. Continue supportive care. Critical care time 30 minutes spent reviewing charts, reviewing labs, imaging, discussion with RN. Vitals/I&O Vitals/I&O: Vital Signs Date Time Temp Pulse Resp B/P (MAP) Pulse Ox O2 Delivery O2 Flow Rate FiO2 06/23/21 06:15 59 20 153/84 (107) 100 Ventilator 06/23/21 04:44 97.9 97.9 06/23/21 03:18 40.0 I & O 06/22/21 06/22/21 06/23/21 15:00 23:00 07:00 Intake Total 350 ml 1496 ml 1682 ml Output Total 510 ml 490 ml 550 ml Balance -160 ml 1006 ml 1132 ml Physical Exam General: No acute distress, Other (Intubated and sedated) Heart: Regular rate, Normal S1, Normal S2 Abdomen: Normal bowel sounds, Soft Extremities: No clubbing, No edema, Normal pulses Skin: No rashes, No significant lesion Labs Labs: Laboratory Tests Test 06/22/21 07:33 06/22/21 07:34 06/22/21 11:51 06/22/21 17:24 O2 Saturation 88 % (92-99) Arterial Blood pH 7.43 (7.35-7.45) Arterial Blood pCO2 at Patient Temp 46 mmHg (35-46) Arterial Blood pO2 at Patient Temp 58 mmHg (75-108) Arterial Blood HCO3 30 mmol/L (21-28) Arterial Blood Base Excess 5 mmol/L (-3-3) FiO2 70 Glucose (Fingerstick) 146 mg/dL (70-99) 210 mg/dL (70-99) 198 mg/dL (70-99) Test 06/22/21 22:30 06/23/21 00:57 06/23/21 05:54 06/23/21 06:00 Glucose (Fingerstick) 245 mg/dL (70-99) 267 mg/dL (70-99) 257 mg/dL (70-99) Sodium Level 144 mmol/L (136-145) Potassium Level 4.2 mmol/L (3.5-5.1) Chloride Level 109 mmol/L (98-107) Carbon Dioxide Level 32 mmol/L (21-32) Anion Gap 3 (6-14) Blood Urea Nitrogen 20 mg/dL (7-20) Creatinine 0.4 mg/dL (0.6-1.0) Estimated GFR (Cockcroft-Gault) 176.8 Glucose Level 262 mg/dL (70-99) Calcium Level 7.8 mg/dL (8.5-10.1) Comment Review of Relevant I have reviewed the following items man (where applicable) has been applied. Justifications for Admission Other Justification Acute hypoxic respiratory failure and Covid pneumonia CLAUDIO BORJA MD Jun 23, 2021 07:08
[2021-06-23 07:22] LABS: BASE EXCESS ABG 6 mmol/L (-3-3); HCO3 ABG 31 mmol/L (21-28); PCO2 ABG 47 mmHg (35-46); PO2 ABG 63 mmHg (75-108); SAT O2 ABG 91 % (92-99)
[2021-06-23 07:25] LABS: FIO2 ABG 70
[2021-06-23] MEDS: PANTOPRAZOLE IV PUSH 40 MG VIAL. IVP SCH (07:59)
[2021-06-23] MEDS: GABAPENTIN 300 MG CAPSULE. PO SCH ×3 (07:59→20:35)
[2021-06-23] MEDS: ASCORBIC ACID 1,000 MG TABLET PO SCH ×3 (08:00→20:35)
[2021-06-23] MEDS: ENOXAPARIN 40 MG/0.4 ML SYRINGE. SQ SCH ×2 (08:00→20:35)
[2021-06-23] MEDS: LISINOPRIL 5 MG TABLET. PO SCH (08:00)
[2021-06-23] MEDS: THIAMINE 100 MG TABLET. PO SCH (08:00)
[2021-06-23] MEDS: ZINC SULFATE 220 MG CAPSULE. PO SCH (08:00)
--- NOTE | 2021-06-23 09:28 | PDOC ---
PULMONARY PROGRESS NOTES DATE: 06/23/21 TIME: 09:27 Subjective Remains on vent support, FiO2 70% PEEP of 10 Afebrile Overnight concerns from nursing Vitals Vital Signs Date Time Temp Pulse Resp B/P (MAP) Pulse Ox O2 Delivery O2 Flow Rate FiO2 06/23/21 08:00 Mechanical Ventilator 06/23/21 08:00 61 139/71 06/23/21 07:13 20 97 06/23/21 04:44 97.9 97.9 06/23/21 03:18 40.0 Comments Visual exam done due to COVID-19. Intubated no paradoxical breathing. No respiratory distress. Obese no skin rash. No leg edema. Labs Laboratory Tests Test 06/21/21 12:21 06/21/21 15:55 06/22/21 00:17 06/22/21 07:33 Glucose (Fingerstick) 201 mg/dL (70-99) 205 mg/dL (70-99) 205 mg/dL (70-99) O2 Saturation 88 % (92-99) Arterial Blood pH 7.43 (7.35-7.45) Arterial Blood pCO2 at Patient Temp 46 mmHg (35-46) Arterial Blood pO2 at Patient Temp 58 mmHg (75-108) Arterial Blood HCO3 30 mmol/L (21-28) Arterial Blood Base Excess 5 mmol/L (-3-3) FiO2 70 Test 06/22/21 07:34 06/22/21 11:51 06/22/21 17:24 06/22/21 22:30 Glucose (Fingerstick) 146 mg/dL (70-99) 210 mg/dL (70-99) 198 mg/dL (70-99) 245 mg/dL (70-99) Test 06/23/21 00:57 06/23/21 05:54 06/23/21 06:00 06/23/21 07:15 Glucose (Fingerstick) 267 mg/dL (70-99) 257 mg/dL (70-99) White Blood Count 8.7 x10^3/uL (4.0-11.0) Red Blood Count 4.21 x10^6/uL (3.50-5.40) Hemoglobin 10.4 g/dL (12.0-15.5) Hematocrit 31.8 % (36.0-47.0) Mean Corpuscular Volume 76 fL (79-100) Mean Corpuscular Hemoglobin 25 pg (25-35) Mean Corpuscular Hemoglobin Concent 33 g/dL (31-37) Red Cell Distribution Width 16.9 % (11.5-14.5) Platelet Count 236 x10^3/uL (140-400) Neutrophils (%) (Auto) 92 % (31-73) Lymphocytes (%) (Auto) 4 % (24-48) Monocytes (%) (Auto) 4 % (0-9) Eosinophils (%) (Auto) 0 % (0-3) Basophils (%) (Auto) 0 % (0-3) Neutrophils # (Auto) 8.0 x10^3/uL (1.8-7.7) Lymphocytes # (Auto) 0.3 x10^3/uL (1.0-4.8) Monocytes # (Auto) 0.4 x10^3/uL (0.0-1.1) Eosinophils # (Auto) 0.0 x10^3/uL (0.0-0.7) Basophils # (Auto) 0.0 x10^3/uL (0.0-0.2) Sodium Level 144 mmol/L (136-145) Potassium Level 4.2 mmol/L (3.5-5.1) Chloride Level 109 mmol/L (98-107) Carbon Dioxide Level 32 mmol/L (21-32) Anion Gap 3 (6-14) Blood Urea Nitrogen 20 mg/dL (7-20) Creatinine 0.4 mg/dL (0.6-1.0) Estimated GFR (Cockcroft-Gault) 176.8 Glucose Level 262 mg/dL (70-99) Calcium Level 7.8 mg/dL (8.5-10.1) O2 Saturation 91 % (92-99) Arterial Blood pH 7.44 (7.35-7.45) Arterial Blood pCO2 at Patient Temp 47 mmHg (35-46) Arterial Blood pO2 at Patient Temp 63 mmHg (75-108) Arterial Blood HCO3 31 mmol/L (21-28) Arterial Blood Base Excess 6 mmol/L (-3-3) FiO2 70 Laboratory Tests Test 06/22/21 11:51 06/22/21 17:24 06/22/21 22:30 06/23/21 00:57 Glucose (Fingerstick) 210 mg/dL (70-99) 198 mg/dL (70-99) 245 mg/dL (70-99) 267 mg/dL (70-99) Test 06/23/21 05:54 06/23/21 06:00 06/23/21 07:15 Glucose (Fingerstick) 257 mg/dL (70-99) White Blood Count 8.7 x10^3/uL (4.0-11.0) Red Blood Count 4.21 x10^6/uL (3.50-5.40) Hemoglobin 10.4 g/dL (12.0-15.5) Hematocrit 31.8 % (36.0-47.0) Mean Corpuscular Volume 76 fL (79-100) Mean Corpuscular Hemoglobin 25 pg (25-35) Mean Corpuscular Hemoglobin Concent 33 g/dL (31-37) Red Cell Distribution Width 16.9 % (11.5-14.5) Platelet Count 236 x10^3/uL (140-400) Neutrophils (%) (Auto) 92 % (31-73) Lymphocytes (%) (Auto) 4 % (24-48) Monocytes (%) (Auto) 4 % (0-9) Eosinophils (%) (Auto) 0 % (0-3) Basophils (%) (Auto) 0 % (0-3) Neutrophils # (Auto) 8.0 x10^3/uL (1.8-7.7) Lymphocytes # (Auto) 0.3 x10^3/uL (1.0-4.8) Monocytes # (Auto) 0.4 x10^3/uL (0.0-1.1) Eosinophils # (Auto) 0.0 x10^3/uL (0.0-0.7) Basophils # (Auto) 0.0 x10^3/uL (0.0-0.2) Sodium Level 144 mmol/L (136-145) Potassium Level 4.2 mmol/L (3.5-5.1) Chloride Level 109 mmol/L (98-107) Carbon Dioxide Level 32 mmol/L (21-32) Anion Gap 3 (6-14) Blood Urea Nitrogen 20 mg/dL (7-20) Creatinine 0.4 mg/dL (0.6-1.0) Estimated GFR (Cockcroft-Gault) 176.8 Glucose Level 262 mg/dL (70-99) Calcium Level 7.8 mg/dL (8.5-10.1) O2 Saturation 91 % (92-99) Arterial Blood pH 7.44 (7.35-7.45) Arterial Blood pCO2 at Patient Temp 47 mmHg (35-46) Arterial Blood pO2 at Patient Temp 63 mmHg (75-108) Arterial Blood HCO3 31 mmol/L (21-28) Arterial Blood Base Excess 6 mmol/L (-3-3) FiO2 70 Medications Active Scripts Medications Dose Route/Sig Max Daily Dose Days Date Category Cyclobenzaprine Hcl 10 Mg Tablet 10 Mg PO TID 06/15/21 Reported Meloxicam 15 Mg Tablet 15 Mg PO DAILY 06/15/21 Reported Fluticasone Propionate Nasal [place] (Fluticasone Propionate) 16 Gm [place].susp 1 [place] NS DAILY 06/15/21 Reported Loratadine 10 Mg Tablet 10 Mg PO DAILY 06/15/21 Reported Furosemide 20 Mg Tablet 20 Mg PO DAILY 06/15/21 Reported Gabapentin (Gabapentin) 300 Mg Capsule 300 Mg PO TID 06/15/21 Reported Gabapentin (Gabapentin) 300 Mg Capsule 300 Mg PO TID 06/15/21 Reported Lisinopril 5 Mg Tablet 1 Tab PO DAILY 06/15/21 Reported Metformin Hcl 500 Mg Tablet 500 Mg PO BIDWMEALS 06/15/21 Reported Ozempic (Semaglutide) 0.25 Mg/0.2 Ml Pen.injctr 0.25 Mg SQ WEEKLY 06/15/21 Reported Comments Chest x-ray done 06/21/2021 was reviewed by me. Diffuse unchanged bilateral infiltrates. Impression . 1. Acute hypoxic respiratory failure secondary to ARDS/COVID-19 infection, worsening intubated 06/19/[address] of chest secondary to COVID-19 infection/ARDS 3. Diabetes type 2 with hyperglycemia 4. Hypertension 5. Hyperlipdemia 6. Obesity Plan . Updated 06/23/21 Continue current vent support /% Follow ABG/CXR --make changes as needed Continue steroids will need full 10-day course, with slow taper Continue antibiotics, currently on Zosyn S/P remdesivir Continue zinc/vitamin C Continue tube feeding for nutritional support DVT/GI prophylaxis: Lovenox Discussed with RN and RT Updated 06/22/21 Continue current vent support /% Follow ABG/CXR --make changes as needed Continue steroids will need full 10-day course, with slow taper Continue antibiotics, currently on Zosyn S/P remdesivir Continue zinc/vitamin C Continue tube feeding for nutritional support DVT/GI prophylaxis: Lovenox Discussed with RN and RT NICOLETTE MORALES MD Jun 23, 2021 09:28
[2021-06-23] MEDS: MIDAZOLAM 100mg/100ml NS BAG 100 ML IV PRN (11:12)
--- NOTE | 2021-06-23 11:19 | NUR ---
Oconnell catheter not draining and unable to irrigate. New oconnell placed and urine is draining freely.
[2021-06-23] MEDS: IV NORMAL SALINE 1000ML BAG 1,000 ML IV SCH (15:04)
[2021-06-23] MEDS: INSULIN GLARGINE SYRINGE. SQ SCH (20:35)
[2021-06-24] VITALS (28 sets, daily range): BP systolic 83–154; BP diastolic 40–75
[2021-06-24] MEDS: PIPERACILLIN/TAZOBACTAM 3.375 GM in IV NORMAL SALINE 50ML 50 ML IV SCH ×4 (00:05→18:40)
[2021-06-24] MEDS: INSULIN LISPRO 300 UNITS/3 ML VIAL. SQ SCH ×4 (00:10→18:44)
[2021-06-24] MEDS: PROPOFOL 100 ML IV PRN ×4 (04:43→20:50)
--- NOTE | 2021-06-24 05:44 | PDOC ---
PULMONARY PROGRESS NOTES DATE: 06/24/21 TIME: 05:44 Subjective Remains on vent support, [id number]% PEEP of 8 sedated on fentanyl versed prop Afebrile Vitals Vital Signs Date Time Temp Pulse Resp B/P (MAP) Pulse Ox O2 Delivery O2 Flow Rate FiO2 06/24/21 05:00 99 Ventilator 06/24/21 05:00 46 20 133/56 (81) 06/24/21 04:00 99.0 99.0 Comments ros unable to obtain Visual exam done due to COVID-19. Intubated sedated NC AT RRR no accessory muscle use abd Obese no skin rash. No leg edema. Labs Laboratory Tests Test 06/22/21 07:33 06/22/21 07:34 06/22/21 11:51 06/22/21 17:24 O2 Saturation 88 % (92-99) Arterial Blood pH 7.43 (7.35-7.45) Arterial Blood pCO2 at Patient Temp 46 mmHg (35-46) Arterial Blood pO2 at Patient Temp 58 mmHg (75-108) Arterial Blood HCO3 30 mmol/L (21-28) Arterial Blood Base Excess 5 mmol/L (-3-3) FiO2 70 Glucose (Fingerstick) 146 mg/dL (70-99) 210 mg/dL (70-99) 198 mg/dL (70-99) Test 06/22/21 22:30 06/23/21 00:57 06/23/21 05:54 06/23/21 06:00 Glucose (Fingerstick) 245 mg/dL (70-99) 267 mg/dL (70-99) 257 mg/dL (70-99) White Blood Count 8.7 x10^3/uL (4.0-11.0) Red Blood Count 4.21 x10^6/uL (3.50-5.40) Hemoglobin 10.4 g/dL (12.0-15.5) Hematocrit 31.8 % (36.0-47.0) Mean Corpuscular Volume 76 fL (79-100) Mean Corpuscular Hemoglobin 25 pg (25-35) Mean Corpuscular Hemoglobin Concent 33 g/dL (31-37) Red Cell Distribution Width 16.9 % (11.5-14.5) Platelet Count 236 x10^3/uL (140-400) Neutrophils (%) (Auto) 92 % (31-73) Lymphocytes (%) (Auto) 4 % (24-48) Monocytes (%) (Auto) 4 % (0-9) Eosinophils (%) (Auto) 0 % (0-3) Basophils (%) (Auto) 0 % (0-3) Neutrophils # (Auto) 8.0 x10^3/uL (1.8-7.7) Lymphocytes # (Auto) 0.3 x10^3/uL (1.0-4.8) Monocytes # (Auto) 0.4 x10^3/uL (0.0-1.1) Eosinophils # (Auto) 0.0 x10^3/uL (0.0-0.7) Basophils # (Auto) 0.0 x10^3/uL (0.0-0.2) Sodium Level 144 mmol/L (136-145) Potassium Level 4.2 mmol/L (3.5-5.1) Chloride Level 109 mmol/L (98-107) Carbon Dioxide Level 32 mmol/L (21-32) Anion Gap 3 (6-14) Blood Urea Nitrogen 20 mg/dL (7-20) Creatinine 0.4 mg/dL (0.6-1.0) Estimated GFR (Cockcroft-Gault) 176.8 Glucose Level 262 mg/dL (70-99) Calcium Level 7.8 mg/dL (8.5-10.1) Test 06/23/21 07:15 06/23/21 12:00 06/23/21 17:45 06/23/21 23:33 O2 Saturation 91 % (92-99) Arterial Blood pH 7.44 (7.35-7.45) Arterial Blood pCO2 at Patient Temp 47 mmHg (35-46) Arterial Blood pO2 at Patient Temp 63 mmHg (75-108) Arterial Blood HCO3 31 mmol/L (21-28) Arterial Blood Base Excess 6 mmol/L (-3-3) FiO2 70 Glucose (Fingerstick) 218 mg/dL (70-99) 249 mg/dL (70-99) 239 mg/dL (70-99) Laboratory Tests Test 06/23/21 05:54 06/23/21 06:00 06/23/21 07:15 06/23/21 12:00 Glucose (Fingerstick) 257 mg/dL (70-99) 218 mg/dL (70-99) White Blood Count 8.7 x10^3/uL (4.0-11.0) Red Blood Count 4.21 x10^6/uL (3.50-5.40) Hemoglobin 10.4 g/dL (12.0-15.5) Hematocrit 31.8 % (36.0-47.0) Mean Corpuscular Volume 76 fL (79-100) Mean Corpuscular Hemoglobin 25 pg (25-35) Mean Corpuscular Hemoglobin Concent 33 g/dL (31-37) Red Cell Distribution Width 16.9 % (11.5-14.5) Platelet Count 236 x10^3/uL (140-400) Neutrophils (%) (Auto) 92 % (31-73) Lymphocytes (%) (Auto) 4 % (24-48) Monocytes (%) (Auto) 4 % (0-9) Eosinophils (%) (Auto) 0 % (0-3) Basophils (%) (Auto) 0 % (0-3) Neutrophils # (Auto) 8.0 x10^3/uL (1.8-7.7) Lymphocytes # (Auto) 0.3 x10^3/uL (1.0-4.8) Monocytes # (Auto) 0.4 x10^3/uL (0.0-1.1) Eosinophils # (Auto) 0.0 x10^3/uL (0.0-0.7) Basophils # (Auto) 0.0 x10^3/uL (0.0-0.2) Sodium Level 144 mmol/L (136-145) Potassium Level 4.2 mmol/L (3.5-5.1) Chloride Level 109 mmol/L (98-107) Carbon Dioxide Level 32 mmol/L (21-32) Anion Gap 3 (6-14) Blood Urea Nitrogen 20 mg/dL (7-20) Creatinine 0.4 mg/dL (0.6-1.0) Estimated GFR (Cockcroft-Gault) 176.8 Glucose Level 262 mg/dL (70-99) Calcium Level 7.8 mg/dL (8.5-10.1) O2 Saturation 91 % (92-99) Arterial Blood pH 7.44 (7.35-7.45) Arter[facility] (35-46) Arterial Blood pO2 at Patient Temp 63 mmHg (75-108) Arterial Blood HCO3 31 mmol/L (21-28) Arterial Blood Base Excess 6 mmol/L (-3-3) FiO2 70 Test 06/23/21 17:45 06/23/21 23:33 Glucose (Fingerstick) 249 mg/dL (70-99) 239 mg/dL (70-99) Medications Active Scripts Medications Dose Route/Sig Max Daily Dose Days Date Category Cyclobenzaprine Hcl 10 Mg Tablet 10 Mg PO TID 06/15/21 Reported Meloxicam 15 Mg Tablet 15 Mg PO DAILY 06/15/21 Reported Fluticasone Propionate Nasal [place] (Fluticasone Propionate) 16 Gm [place].susp 1 [place] NS DAILY 06/15/21 Reported Loratadine 10 Mg Tablet 10 Mg PO DAILY 06/15/21 Reported Furosemide 20 Mg Tablet 20 Mg PO DAILY 06/15/21 Reported Gabapentin (Gabapentin) 300 Mg Capsule 300 Mg PO TID 06/15/21 Reported Gabapentin (Gabapentin) 300 Mg Capsule 300 Mg PO TID 06/15/21 Reported Lisinopril 5 Mg Tablet 1 Tab PO DAILY 06/15/21 Reported Metformin Hcl 500 Mg Tablet 500 Mg PO BIDWMEALS 06/15/21 Reported Ozempic (Semaglutide) 0.25 Mg/0.2 Ml Pen.injctr 0.25 Mg SQ WEEKLY 06/15/21 Reported Comments reviewed Chest x-ray done 06/21/2021 was reviewed by me. Diffuse unchanged bilateral infiltrates. Impression . 1. Acute hypoxic respiratory failure secondary to ARDS/COVID-19 infection, worsening intubated 06/19/[address] of chest secondary to COVID-19 infection/ARDS 3. Diabetes type 2 with hyperglycemia 4. Hypertension 5. Hyperlipdemia 6. Obesity Plan . Updated 06/24/21 Continue current vent support 22/500/8/65% titrate peep fio2 as tolerated Follow ABG/CXR --make changes as needed Continue steroids will need full 10-day course, with slow taper Continue antibiotics, currently on Zosyn S/P remdesivir Continue zinc/vitamin C Continue tube feeding for nutritional support DVT/GI prophylaxis: Lovenox Discussed with RN and RT Updated 06/22/21 Continue current vent support 22/500/10/70% Follow ABG/CXR --make changes as needed Continue steroids will need full 10-day course, with slow taper Continue antibiotics, currently on Zosyn S/P remdesivir Continue zinc/vitamin C Continue tube feeding for nutritional support DVT/GI prophylaxis: Lovenox Discussed with RN and RT ALANNAH CARTER MD Jun 24, 2021 05:44
[2021-06-24] MEDS: methylPREDNISolone SOD SUCC PF 125 MG/2 ML VIAL. IV SCH ×4 (06:25→20:46)
[2021-06-24] MEDS: MIDAZOLAM 100mg/100ml NS BAG 100 ML IV PRN ×2 (06:27→22:10)
[2021-06-24 07:47] LABS: BASE EXCESS ABG 7 mmol/L (-3-3); HCO3 ABG 31 mmol/L (21-28); PCO2 ABG 44 mmHg (35-46); PO2 ABG 57 mmHg (75-108); SAT O2 ABG 89 % (92-99)
[2021-06-24 07:50] LABS: FIO2 ABG 60
--- NOTE | 2021-06-24 08:04 | PDOC ---
[employer] PROGRESS NOTE Date of Service DOS: DATE: 06/24/21 TIME: 08:00 Chief Complaint Chief Complaint Acute hypoxic respiratory failure requiring BiPAP COVID-19 pneumonia Morbid obesity History of diabetes mellitus type 2 History of hypertension Severe malnutrition Plan: Admit to ICU for further management Pulmonology consult Continue IV thiamine and vitamin C IV Solu-Medrol every 8 Pending ferritin, LDH, CRP, D-dimer labs Titrate O2 supplementation to maintain O2 saturation greater than 92% Initiate IV Remdesivir Lovenox for DVT prophylaxis Protonix GI prophylaxis ADA diet Full code Discussed with RN and SW Disposition ICU management as above Surrogate decision maker is the undesignated at this time History of Present Illness History of Present Illness Patient is a transfer from [facility] in [facility] 40-year-old female with past medical history of diabetes, hypertension, dy slipidemia and morbid obesity who complains of shortness of breath 1 week ago and went to urgent care and found out that she was positive for Covid. She came in at 5:00 in the morning at [facility] is very hypoxic and was found to be her oxygen saturation was 68% she was put on a nonrebreather 15 L and she was improved to 90 to 93%. Patient is [id number]. Patient is a poor historian. She does not know what kind of medication she takes for her medical history. 06/15/21 Patient seen and examined at bedside in the ICU. She was face time talking with family members. She was still on nonrebreather. Reports that she feels improved from yesterday. Otherwise no complaints. Pulmonary consulted. Plan of care discussed with bedside nurse. 06/16/21 Patient seen and examined at bedside. On Vapotherm doing well. Stable from yesterday. No major complaints. Pulmonary following. Plan of care discussed with bedside nurse. 06/17/21 Patient seen and examined at bedside. Remains on Vapotherm although O2 requirement decreasing. Continue current plan. Plan of care discussed bedside nurse. 06/18/21 Patient seen and examined at bedside. On 40 L Vapotherm and now requiring NRB in addition. Worsening oxygenation. Although leukocytosis persists since patient is afebrile and on broad-spectrum antibiotics suspect this is related to steroids. Remdesivir finishes today. Pulmonary following. Plan of care discussed with bedside nurse. 06/19/2021: Intubated overnight in ICU. Afebrile. Currently breathing FiO2 100%. Completed remdesivir. We will continue IV steroids and prophylactic antibiotics. 30 minutes critical care time spent reviewing charts, reviewing labs, reviewing imaging, and discussion with RN. 06/20/2021: Low-grade fever overnight (T-max 99.7 F). Remains on vent, FiO2 90%, PEEP 10. Continue treatment with IV steroids and prophylactic IV antibiotics. She has completed a course of remdesivir. Continue supportive care. Critical care time 30 minutes spent reviewing charts, reviewing labs, imaging, discussion with RN. 06/21/21: Afebrile. On vent with FiO2 80%, PEEP 10. Continue treatment with prophylactic antibiotics steroids total of 10 day course (steroid taper to begin 06/24). Completed course remdesivir. Continue supportive care. Critical care time 30 minutes spent reviewing charts, reviewing labs, imaging, discussion with RN. 06/22/2021: Afebrile. Remains on ventilator with FiO2 70%, PEEP 10. Completed remdesivir. Continue antibiotics, steroids with slow taper. Continue supportive care. Critical care time 30 minutes spent reviewing charts, reviewing labs, imaging, discussion with RN. 06/23/2021: Afebrile. On vent with FiO2 of 70, PEEP 10. Continue antibiotics for diffuse bilateral opacities. Continue steroids with slow taper to begin tomorrow. Continue supportive care. Critical care time 30 minutes spent reviewing charts, reviewing labs, imaging, discussion with RN. 06/24/2021: Afebrile. On vent with FiO2 60%, PEEP 9. Continue antibiotics. Today is day 10 of steroids; will begin Solu-Medrol taper tomorrow. S/p remdesivir. Continue supportive care. Critical care time 30 minutes spent reviewing charts, reviewing labs, imaging, discussion with RN. Vitals/I&O Vitals/I&O: Vital Signs Date Time Temp Pulse Resp B/P (MAP) Pulse Ox O2 Delivery O2 Flow Rate FiO2 06/24/21 07:28 97 Ventilator 06/24/21 07:22 56 20 119/61 (80) 06/24/21 04:00 99.0 99.0 I & O 06/23/21 06/23/21 06/24/21 15:00 23:00 07:00 Intake Total 350 ml 1948 ml 2339.8 ml Output Total 550 ml 600 ml 710 ml Balance -200 ml 1348 ml 1629.8 ml Physical Exam General: No acute distress, Other (Intubated and sedated) Heart: Regular rate, Normal S1, Normal S2 Abdomen: Normal bowel sounds, Soft Extremities: No clubbing, No edema, Normal pulses Skin: No rashes, No significant lesion Labs Labs: Laboratory Tests Test 06/23/21 12:00 06/23/21 17:45 06/23/21 23:33 06/24/21 06:04 Glucose (Fingerstick) 218 mg/dL (70-99) 249 mg/dL (70-99) 239 mg/dL (70-99) 240 mg/dL (70-99) Test 06/24/21 07:35 O2 Saturation 89 % (92-99) Arterial Blood pH 7.47 (7.35-7.45) Arterial Blood pCO2 at Patient Temp 44 mmHg (35-46) Arterial Blood pO2 at Patient Temp 57 mmHg (75-108) Arterial Blood HCO3 31 mmol/L (21-28) Arterial Blood Base Excess 7 mmol/L (-3-3) FiO2 60 Comment Review of Relevant I have reviewed the following items man (where applicable) has been applied. Medications: Current Medications Medications (Trade) Dose Ordered Sig/Jun Route PRN Reason Start Time Stop Time Status Last Admin Dose Admin Sodium Chloride 1,000 ml @ 50 mls/hr Q20H IV 06/23/21 15:00 06/23/21 15:04 Justifications for Admission Other Justification Acute hypoxic respiratory failure and Covid pneumonia CLAUDIO BORJA MD Jun 24, 2021 08:04
[2021-06-24] MEDS: PANTOPRAZOLE IV PUSH 40 MG VIAL. IVP SCH (08:55)
[2021-06-24] MEDS: ZINC SULFATE 220 MG CAPSULE. PO SCH (08:55)
[2021-06-24] MEDS: THIAMINE 100 MG TABLET. PO SCH (08:55)
[2021-06-24] MEDS: ASCORBIC ACID 1,000 MG TABLET PO SCH ×3 (08:56→20:47)
[2021-06-24] MEDS: LISINOPRIL 5 MG TABLET. PO SCH (08:56)
[2021-06-24] MEDS: GABAPENTIN 300 MG CAPSULE. PO SCH ×3 (08:56→20:47)
[2021-06-24] MEDS: ENOXAPARIN 40 MG/0.4 ML SYRINGE. SQ SCH ×2 (08:57→20:48)
[2021-06-24 09:15] LABS: BASO % 0 % (0-3); EOS % 0 % (0-3); HEMATOCRIT 31.8 % (36.0-47.0); HEMOGLOBIN 10.3 g/dL (12.0-15.5); LYMPH # 0.3 x10^3/uL (1.0-4.8); LYMPH % 3 % (24-48); MEAN CORPUSCULAR HEMOGLOBIN 24 pg (25-35); MEAN CORPUSCULAR HGB CONC 32 g/dL (31-37); MEAN CORPUSCULAR VOLUME 75 fL (79-100); MONO # 0.5 x10^3/uL (0.0-1.1); MONO % 5 % (0-9); NEUT # 9.8 x10^3/uL (1.8-7.7); NEUT % 92 % (31-73); PLATELET COUNT 232 x10^3/uL (140-400); RED BLOOD COUNT 4.23 x10^6/uL (3.50-5.40); RED CELL DISTRIBUTION WIDTH 17.2 % (11.5-14.5); WHITE BLOOD COUNT 10.7 x10^3/uL (4.0-11.0)
[2021-06-24 09:24] LABS: CALCIUM 7.8 mg/dL (8.5-10.1); CREATININE 0.4 mg/dL (0.6-1.0); GFR 176.8; POTASSIUM 4.4 mmol/L (3.5-5.1)
[2021-06-24] MEDS: IV NORMAL SALINE 1000ML BAG 1,000 ML IV SCH (11:47)
[2021-06-24] MEDS: INSULIN GLARGINE SYRINGE. SQ SCH (20:48)
[2021-06-25] VITALS (35 sets, daily range): BP systolic 90–197; BP diastolic 34–103
[2021-06-25] MEDS: PIPERACILLIN/TAZOBACTAM 3.375 GM in IV NORMAL SALINE 50ML 50 ML IV SCH ×3 (00:12→12:15)
[2021-06-25] MEDS: PROPOFOL 100 ML IV PRN ×6 (00:55→21:36)
[2021-06-25] MEDS: INSULIN LISPRO 300 UNITS/3 ML VIAL. SQ SCH ×4 (01:17→17:47)
--- NOTE | 2021-06-25 05:06 | PDOC ---
PULMONARY PROGRESS NOTES DATE: 06/25/21 TIME: 05:06 Subjective Remains on vent support, FiO2 65% PEEP increased to 9 sedated on fentanyl versed prop small ett secretion Afebrile Vitals Vital Signs Date Time Temp Pulse Resp B/P (MAP) Pulse Ox O2 Delivery O2 Flow Rate FiO2 06/25/21 04:00 Mechanical Ventilator 06/25/21 03:58 20 96 06/25/21 03:28 40.0 06/25/21 02:30 52 153/75 (101) 06/25/21 00:00 97.9 97.9 Comments ros unable to obtain Visual exam done due to COVID-19. Intubated sedated NC AT RRR no accessory muscle use abd Obese no skin rash. No leg edema. Labs Laboratory Tests Test 06/23/21 05:54 06/23/21 06:00 06/23/21 07:15 06/23/21 12:00 Glucose (Fingerstick) 257 mg/dL (70-99) 218 mg/dL (70-99) White Blood Count 8.7 x10^3/uL (4.0-11.0) Red Blood Count 4.21 x10^6/uL (3.50-5.40) Hemoglobin 10.4 g/dL (12.0-15.5) Hematocrit 31.8 % (36.0-47.0) Mean Corpuscular Volume 76 fL (79-100) Mean Corpuscular Hemoglobin 25 pg (25-35) Mean Corpuscular Hemoglobin Concent 33 g/dL (31-37) Red Cell Distribution Width 16.9 % (11.5-14.5) Platelet Count 236 x10^3/uL (140-400) Neutrophils (%) (Auto) 92 % (31-73) Lymphocytes (%) (Auto) 4 % (24-48) Monocytes (%) (Auto) 4 % (0-9) Eosinophils (%) (Auto) 0 % (0-3) Basophils (%) (Auto) 0 % (0-3) Neutrophils # (Auto) 8.0 x10^3/uL (1.8-7.7) Lymphocytes # (Auto) 0.3 x10^3/uL (1.0-4.8) Monocytes # (Auto) 0.4 x10^3/uL (0.0-1.1) Eosinophils # (Auto) 0.0 x10^3/uL (0.0-0.7) Basophils # (Auto) 0.0 x10^3/uL (0.0-0.2) Sodium Level 144 mmol/L (136-145) Potassium Level 4.2 mmol/L (3.5-5.1) Chloride Level 109 mmol/L (98-107) Carbon Dioxide Level 32 mmol/L (21-32) Anion Gap 3 (6-14) Blood Urea Nitrogen 20 mg/dL (7-20) Creatinine 0.4 mg/dL (0.6-1.0) Estimated GFR (Cockcroft-Gault) 176.8 Glucose Level 262 mg/dL (70-99) Calcium Level 7.8 mg/dL (8.5-10.1) O2 Saturation 91 % (92-99) Arterial Blood pH 7.44 (7.35-7.45) Arterial Blood pCO2 at Patient Temp 47 mmHg (35-46) Arterial Blood pO2 at Patient Temp 63 mmHg (75-108) Arterial Blood HCO3 31 mmol/L (21-28) Arterial Blood Base Excess 6 mmol/L (-3-3) FiO2 70 Test 06/23/21 17:45 06/23/21 23:33 06/24/21 06:04 06/24/21 07:35 Glucose (Fingerstick) 249 mg/dL (70-99) 239 mg/dL (70-99) 240 mg/dL (70-99) O2 Saturation 89 % (92-99) Arterial Blood pH 7.47 (7.35-7.45) Arterial Blood pCO2 at Patient Temp 44 mmHg (35-46) Arterial Blood pO2 at Patient Temp 57 mmHg (75-108) Arterial Blood HCO3 31 mmol/L (21-28) Arterial Blood Base Excess 7 mmol/L (-3-3) FiO2 60 Test 06/24/21 09:00 06/24/21 11:52 06/24/21 11:53 06/24/21 18:43 White Blood Count 10.7 x10^3/uL (4.0-11.0) Red Blood Count 4.23 x10^6/uL (3.50-5.40) Hemoglobin 10.3 g/dL (12.0-15.5) Hematocrit 31.8 % (36.0-47.0) Mean Corpuscular Volume 75 fL (79-100) Mean Corpuscular Hemoglobin 24 pg (25-35) Mean Corpuscular Hemoglobin Concent 32 g/dL (31-37) Red Cell Distribution Width 17.2 % (11.5-14.5) Platelet Count 232 x10^3/uL (140-400) Neutrophils (%) (Auto) 92 % (31-73) Lymphocytes (%) (Auto) 3 % (24-48) Monocytes (%) (Auto) 5 % (0-9) Eosinophils (%) (Auto) 0 % (0-3) Basophils (%) (Auto) 0 % (0-3) Neutrophils # (Auto) 9.8 x10^3/uL (1.8-7.7) Lymphocytes # (Auto) 0.3 x10^3/uL (1.0-4.8) Monocytes # (Auto) 0.5 x10^3/uL (0.0-1.1) Eosinophils # (Auto) 0.0 x10^3/uL (0.0-0.7) Basophils # (Auto) 0.0 x10^3/uL (0.0-0.2) Sodium Level 141 mmol/L (136-145) Potassium Level 4.4 mmol/L (3.5-5.1) Chloride Level 107 mmol/L (98-107) Carbon Dioxide Level 34 mmol/L (21-32) Anion Gap 0 (6-14) Blood Urea Nitrogen 16 mg/dL (7-20) Creatinine 0.4 mg/dL (0.6-1.0) Estimated GFR (Cockcroft-Gault) 176.8 Glucose Level 234 mg/dL (70-99) Calcium Level 7.8 mg/dL (8.5-10.1) Glucose (Fingerstick) 26 mg/dL (70-99) 233 mg/dL (70-99) 189 mg/dL (70-99) Test 06/25/21 00:16 Glucose (Fingerstick) 234 mg/dL (70-99) Laboratory Tests Test 06/24/21 06:04 06/24/21 07:35 06/24/21 09:00 06/24/21 11:52 Glucose (Fingerstick) 240 mg/dL (70-99) 26 mg/dL (70-99) O2 Saturation 89 % (92-99) Arterial Blood pH 7.47 (7.35-7.45) Arterial Blood pCO2 at Patient Temp 44 mmHg (35-46) Arterial Blood pO2 at Patient Temp 57 mmHg (75-108) Arterial Blood HCO3 31 mmol/L (21-28) Arterial Blood Base Excess 7 mmol/L (-3-3) FiO2 60 White Blood Count 10.7 x10^3/uL (4.0-11.0) Red Blood Count 4.23 x10^6/uL (3.50-5.40) Hemoglobin 10.3 g/dL (12.0-15.5) Hematocrit 31.8 % (36.0-47.0) Mean Corpuscular Volume 75 fL (79-100) Mean Corpuscular Hemoglobin 24 pg (25-35) Mean Corpuscular Hemoglobin Concent 32 g/dL (31-37) Red Cell Distribution Width 17.2 % (11.5-14.5) Platelet Count 232 x10^3/uL (140-400) Neutrophils (%) (Auto) 92 % (31-73) Lymphocytes (%) (Auto) 3 % (24-48) Monocytes (%) (Auto) 5 % (0-9) Eosinophils (%) (Auto) 0 % (0-3) Basophils (%) (Auto) 0 % (0-3) Neutrophils # (Auto) 9.8 x10^3/uL (1.8-7.7) Lymphocytes # (Auto) 0.3 x10^3/uL (1.0-4.8) Monocytes # (Auto) 0.5 x10^3/uL (0.0-1.1) Eosinophils # (Auto) 0.0 x10^3/uL (0.0-0.7) Basophils # (Auto) 0.0 x10^3/uL (0.0-0.2) Sodium Level 141 mmol/L (136-145) Potassium Level 4.4 mmol/L (3.5-5.1) Chloride Level 107 mmol/L (98-107) Carbon Dioxide Level 34 mmol/L (21-32) Anion Gap 0 (6-14) Blood Urea Nitrogen 16 mg/dL (7-20) Creatinine 0.4 mg/dL (0.6-1.0) Estimated GFR (Cockcroft-Gault) 176.8 Glucose Level 234 mg/dL (70-99) Calcium Level 7.8 mg/dL (8.5-10.1) Test 06/24/21 11:53 06/24/21 18:43 06/25/21 00:16 Glucose (Fingerstick) 233 mg/dL (70-99) 189 mg/dL (70-99) 234 mg/dL (70-99) Medications Active Scripts Medications Dose Route/Sig Max Daily Dose Days Date Category Cyclobenzaprine Hcl 10 Mg Tablet 10 Mg PO TID 06/15/21 Reported Meloxicam 15 Mg Tablet 15 Mg PO DAILY 06/15/21 Reported Fluticasone Propionate Nasal [place] (Fluticasone Propionate) 16 Gm [place].susp 1 [place] NS DAILY 06/15/21 Reported Loratadine 10 Mg Tablet 10 Mg PO DAILY 06/15/21 Reported Furosemide 20 Mg Tablet 20 Mg PO DAILY 06/15/21 Reported Gabapentin (Gabapentin) 300 Mg Capsule 300 Mg PO TID 06/15/21 Reported Gabapentin (Gabapentin) 300 Mg Capsule 300 Mg PO TID 06/15/21 Reported Lisinopril 5 Mg Tablet 1 Tab PO DAILY 06/15/21 Reported Metformin Hcl 500 Mg Tablet 500 Mg PO BIDWMEALS 06/15/21 Reported Ozempic (Semaglutide) 0.25 Mg/0.2 Ml Pen.injctr 0.25 Mg SQ WEEKLY 06/15/21 Reported Comments reviewed Chest x-ray done 06/21/2021 was reviewed by me. Diffuse unchanged bilateral infiltrates. Impression . 1. Acute hypoxic respiratory failure secondary to ARDS/COVID-19 infection, worsening intubated 06/19/[address] of chest secondary to COVID-19 infection/ARDS 3. Diabetes type 2 with hyperglycemia 4. Hypertension 5. Hyperlipdemia 6. Obesity Plan . Updated 06/25/21 Continue current vent support //9/65% titrate peep fio2 as tolerated cxr in am Follow ABG --make changes as needed Continue steroids will need full 10-day course, with slow taper Continue antibiotics, currently on Zosyn S/P remdesivir Continue zinc/vitamin C Continue tube feeding for nutritional support DVT/GI prophylaxis: Lovenox Discussed with RN and RT Updated 06/24/21 Continue current vent support 22/500/8/65% titrate peep fio2 as tolerated Follow ABG/CXR --make changes as needed Continue steroids will need full 10-day course, with slow taper Continue antibiotics, currently on Zosyn S/P remdesivir Continue zinc/vitamin C Continue tube feeding for nutritional support DVT/GI prophylaxis: Lovenox Discussed with RN and RT Updated 06/22/21 Continue current vent support 22/500/10/70% Follow ABG/CXR --make changes as needed Continue steroids will need full 10-day course, with slow taper Continue antibiotics, currently on Zosyn S/P remdesivir Continue zinc/vitamin C Continue tube feeding for nutritional support DVT/GI prophylaxis: Lovenox Discussed with RN and RT ALANNAH CARTER MD Jun 25, 2021 05:06
[2021-06-25] MEDS: IV NORMAL SALINE 1000ML BAG 1,000 ML IV SCH (06:37)
[2021-06-25] MEDS: methylPREDNISolone SOD SUCC PF 125 MG/2 ML VIAL. IV SCH (06:37)
--- NOTE | 2021-06-25 07:38 | PDOC ---
[employer] PROGRESS NOTE Date of Service DOS: DATE: 06/25/21 TIME: 07:33 Chief Complaint Chief Complaint Acute hypoxic respiratory failure requiring BiPAP COVID-19 pneumonia Morbid obesity History of diabetes mellitus type 2 History of hypertension Severe malnutrition Plan: Admit to ICU for further management Pulmonology consult Continue IV thiamine and vitamin C IV Solu-Medrol every 8 Pending ferritin, LDH, CRP, D-dimer labs Titrate O2 supplementation to maintain O2 saturation greater than 92% Initiate IV Remdesivir Lovenox for DVT prophylaxis Protonix GI prophylaxis ADA diet Full code Discussed with RN and SW Disposition ICU management as above Surrogate decision maker is the undesignated at this time History of Present Illness History of Present Illness Patient is a transfer from [facility] in [facility] 40-year-old female with past medical history of diabetes, hypertension, dy slipidemia and morbid obesity who complains of shortness of breath 1 week ago and went to urgent care and found out that she was positive for Covid. She came in at 5:00 in the morning at [facility] is very hypoxic and was found to be her oxygen saturation was 68% she was put on a nonrebreather 15 L and she was improved to 90 to 93%. Patient is [id number]. Patient is a poor historian. She does not know what kind of medication she takes for her medical history. 06/15/21 Patient seen and examined at bedside in the ICU. She was face time talking with family members. She was still on nonrebreather. Reports that she feels improved from yesterday. Otherwise no complaints. Pulmonary consulted. Plan of care discussed with bedside nurse. 06/16/21 Patient seen and examined at bedside. On Vapotherm doing well. Stable from yesterday. No major complaints. Pulmonary following. Plan of care discussed with bedside nurse. 06/17/21 Patient seen and examined at bedside. Remains on Vapotherm although O2 requirement decreasing. Continue current plan. Plan of care discussed bedside nurse. 06/18/21 Patient seen and examined at bedside. On 40 L Vapotherm and now requiring NRB in addition. Worsening oxygenation. Although leukocytosis persists since patient is afebrile and on broad-spectrum antibiotics suspect this is related to steroids. Remdesivir finishes today. Pulmonary following. Plan of care discussed with bedside nurse. 06/19/2021: Intubated overnight in ICU. Afebrile. Currently breathing FiO2 100%. Completed remdesivir. We will continue IV steroids and prophylactic antibiotics. 30 minutes critical care time spent reviewing charts, reviewing labs, reviewing imaging, and discussion with RN. 06/20/2021: Low-grade fever overnight (T-max 99.7 F). Remains on vent, FiO2 90%, PEEP 10. Continue treatment with IV steroids and prophylactic IV antibiotics. She has completed a course of remdesivir. Continue supportive care. Critical care time 30 minutes spent reviewing charts, reviewing labs, imaging, discussion with RN. 06/21/21: Afebrile. On vent with FiO2 80%, PEEP 10. Continue treatment with prophylactic antibiotics steroids total of 10 day course (steroid taper to begin 06/24). Completed course remdesivir. Continue supportive care. Critical care time 30 minutes spent reviewing charts, reviewing labs, imaging, discussion with RN. 06/22/2021: Afebrile. Remains on ventilator with FiO2 70%, PEEP 10. Completed remdesivir. Continue antibiotics, steroids with slow taper. Continue supportive care. Critical care time 30 minutes spent reviewing charts, reviewing labs, imaging, discussion with RN. 06/23/2021: Afebrile. On vent with FiO2 of 70, PEEP 10. Continue antibiotics for diffuse bilateral opacities. Continue steroids with slow taper to begin tomorrow. Continue supportive care. Critical care time 30 minutes spent reviewing charts, reviewing labs, imaging, discussion with RN. 06/24/2021: Afebrile. On vent with FiO2 60%, PEEP 9. Continue antibiotics. Today is day 10 of steroids; will begin Solu-Medrol taper tomorrow. S/p remdesivir. Continue supportive care. Critical care time 30 minutes spent reviewing charts, reviewing labs, imaging, discussion with RN. 06/25/2021: On vent with FiO2 65, PEEP 9. Afebrile. Completed 10 days of steroids; will begin Solu-Medrol taper today at 60 mg twice daily. Will provide 60 mg twice daily, then 60 mg daily tomorrow. After which time will observe off antibiotics. S/P remdesivir. Continue supportive care. Critical care time 30 minutes spent reviewing charts, reviewing labs, imaging, discussion with RN. Vitals/I&O Vitals/I&O: Vital Signs Date Time Temp Pulse Resp B/P (MAP) Pulse Ox O2 Delivery O2 Flow Rate FiO2 06/25/21 07:00 73 20 157/81 (106) 96 Ventilator 06/25/21 04:00 98.1 98.1 06/25/21 03:28 40.0 I & O 06/24/21 06/24/21 06/25/21 14:59 22:59 06:59 Intake Total 400 ml 2437 ml 1939 ml Output Total 1200 ml 1000 ml 425 ml Balance -800 ml 1437 ml 1514 ml Physical Exam General: No acute distress, Other (Intubated and sedated) Heart: Regular rate, Normal S1, Normal S2 Abdomen: Normal bowel sounds, Soft Extremities: No clubbing, No edema, Normal pulses Skin: No rashes, No significant lesion Labs Labs: Laboratory Tests Test 06/24/21 07:35 06/24/21 09:00 06/24/21 11:52 06/24/21 11:53 O2 Saturation 89 % (92-99) Arterial Blood pH 7.47 (7.35-7.45) Arterial Blood pCO2 at Patient Temp 44 mmHg (35-46) Arterial Blood pO2 at Patient Temp 57 mmHg (75-108) Arterial Blood HCO3 31 mmol/L (21-28) Arterial Blood Base Excess 7 mmol/L (-3-3) FiO2 60 White Blood Count 10.7 x10^3/uL (4.0-11.0) Red Blood Count 4.23 x10^6/uL (3.50-5.40) Hemoglobin 10.3 g/dL (12.0-15.5) Hematocrit 31.8 % (36.0-47.0) Mean Corpuscular Volume 75 fL (79-100) Mean Corpuscular Hemoglobin 24 pg (25-35) Mean Corpuscular Hemoglobin Concent 32 g/dL (31-37) Red Cell Distribution Width 17.2 % (11.5-14.5) Platelet Count 232 x10^3/uL (140-400) Neutrophils (%) (Auto) 92 % (31-73) Lymphocytes (%) (Auto) 3 % (24-48) Monocytes (%) (Auto) 5 % (0-9) Eosinophils (%) (Auto) 0 % (0-3) Basophils (%) (Auto) 0 % (0-3) Neutrophils # (Auto) 9.8 x10^3/uL (1.8-7.7) Lymphocytes # (Auto) 0.3 x10^3/uL (1.0-4.8) Monocytes # (Auto) 0.5 x10^3/uL (0.0-1.1) Eosinophils # (Auto) 0.0 x10^3/uL (0.0-0.7) Basophils # (Auto) 0.0 x10^3/uL (0.0-0.2) Sodium Level 141 mmol/L (136-145) Potassium Level 4.4 mmol/L (3.5-5.1) Chloride Level 107 mmol/L (98-107) Carbon Dioxide Level 34 mmol/L (21-32) Anion Gap 0 (6-14) Blood Urea Nitrogen 16 mg/dL (7-20) Creatinine 0.4 mg/dL (0.6-1.0) Estimated GFR (Cockcroft-Gault) 176.8 Glucose Level 234 mg/dL (70-99) Calcium Level 7.8 mg/dL (8.5-10.1) Glucose (Fingerstick) 26 mg/dL (70-99) 233 mg/dL (70-99) Test 06/24/21 18:43 06/25/21 00:16 06/25/21 06:23 Glucose (Fingerstick) 189 mg/dL (70-99) 234 mg/dL (70-99) 193 mg/dL (70-99) Comment Review of Relevant I have reviewed the following items man (where applicable) has been applied. Justifications for Admission Other Justification Acute hypoxic respiratory failure and Covid pneumonia CLAUDIO BORJA MD Jun 25, 2021 07:38
[2021-06-25 07:50] LABS: BASE EXCESS ABG 5 mmol/L (-3-3); HCO3 ABG 29 mmol/L (21-28); PCO2 ABG 42 mmHg (35-46); PO2 ABG 51 mmHg (75-108); SAT O2 ABG 87 % (92-99)
[2021-06-25 07:52] LABS: FIO2 ABG 65
[2021-06-25] MEDS: ENOXAPARIN 40 MG/0.4 ML SYRINGE. SQ SCH ×2 (08:02→20:44)
[2021-06-25] MEDS: ASCORBIC ACID 1,000 MG TABLET PO SCH ×3 (08:02→20:43)
[2021-06-25] MEDS: ZINC SULFATE 220 MG CAPSULE. PO SCH (08:02)
[2021-06-25] MEDS: LISINOPRIL 5 MG TABLET. PO SCH (08:03)
[2021-06-25] MEDS: GABAPENTIN 300 MG CAPSULE. PO SCH ×3 (08:03→20:43)
[2021-06-25] MEDS: PANTOPRAZOLE IV PUSH 40 MG VIAL. IVP SCH (08:03)
[2021-06-25] MEDS: THIAMINE 100 MG TABLET. PO SCH (08:04)
[2021-06-25] MEDS: MIDAZOLAM 100mg/100ml NS BAG 100 ML IV PRN (11:17)
--- NOTE | 2021-06-25 12:35 | RAD ---
XR CHEST 1V Clinical History: Reason: intubated on vent / Spl. Instructions: / History: Technique: AP view of the chest was obtained at 06/25/2021 11:40 AM. Comparison: June 21, 2021. Findings: There is low lung volumes causing crowding of pulmonary vasculature. There is patchy and reticular an d hazy opacities of the lungs bilaterally. The pulmonary vessels are difficult to evaluate. The endotracheal tube and right PICC and enteric tube are again seen unchanged. Impression: Marked bilateral mixed interstitial and airspace disease. This could be pulmonary edema or ARDS or at ypical pneumonia and appears mildly worse. Electronically signed by: Modesto Hill III, MD (06/25/2021 12:32 PM) [facility]
[2021-06-25] MEDS ORDERED: FUROSEMIDE 40 MG/4 ML VIAL. IVP ONE (12:45)
[2021-06-25 13:03] LABS: BASO % 0 % (0-3); EOS % 0 % (0-3); HEMATOCRIT 32.3 % (36.0-47.0); HEMOGLOBIN 10.3 g/dL (12.0-15.5); LYMPH # 0.6 x10^3/uL (1.0-4.8); LYMPH % 4 % (24-48); MEAN CORPUSCULAR HEMOGLOBIN 24 pg (25-35); MEAN CORPUSCULAR HGB CONC 32 g/dL (31-37); MEAN CORPUSCULAR VOLUME 75 fL (79-100); MONO # 0.9 x10^3/uL (0.0-1.1); MONO % 5 % (0-9); NEUT # 15.5 x10^3/uL (1.8-7.7); NEUT % 91 % (31-73); PLATELET COUNT 228 x10^3/uL (140-400); RED BLOOD COUNT 4.29 x10^6/uL (3.50-5.40); RED CELL DISTRIBUTION WIDTH 17.1 % (11.5-14.5)
[2021-06-25 13:25] LABS: CALCIUM 8.1 mg/dL (8.5-10.1); CREATININE 0.7 mg/dL (0.6-1.0); GFR 92.7; POTASSIUM 4.4 mmol/L (3.5-5.1)
[2021-06-25 16:02] LABS: BASE EXCESS ABG 7 mmol/L (-3-3); FIO2 ABG 70; HCO3 ABG 31 mmol/L (21-28); PCO2 ABG 43 mmHg (35-46); PO2 ABG 60 mmHg (75-108); SAT O2 ABG 91 % (92-99)
[2021-06-25] MEDS ORDERED: INSULIN GLARGINE SYRINGE. SQ SCH (21:00)
[2021-06-25] MEDS ORDERED: methylPREDNISolone SOD SUCC PF 125 MG/2 ML VIAL. IV SCH (21:00)
[2021-06-26] VITALS (30 sets, daily range): BP systolic 100–152; BP diastolic 49–85
[2021-06-26] MEDS: MIDAZOLAM 100mg/100ml NS BAG 100 ML IV PRN ×3 (00:16→20:39)
[2021-06-26] MEDS: INSULIN LISPRO 300 UNITS/3 ML VIAL. SQ SCH ×4 (01:03→18:04)
[2021-06-26] MEDS: PROPOFOL 100 ML IV PRN ×5 (02:48→20:36)
[2021-06-26 05:41] LABS: HEMATOCRIT 30.6 % (36.0-47.0); HEMOGLOBIN 9.8 g/dL (12.0-15.5); RED BLOOD COUNT 4.09 x10^6/uL (3.50-5.40); RED CELL DISTRIBUTION WIDTH 16.9 % (11.5-14.5); WHITE BLOOD COUNT 12.4 x10^3/uL (4.0-11.0)
[2021-06-26 05:59] LABS: CALCIUM 8.4 mg/dL (8.5-10.1); CREATININE 0.4 mg/dL (0.6-1.0); GFR 176.8; POTASSIUM 4.4 mmol/L (3.5-5.1)
--- NOTE | 2021-06-26 07:06 | PDOC ---
PULMONARY PROGRESS NOTES DATE: 06/26/21 TIME: 07:03 Subjective Patient remains on ventilatory support, pressure control mode-70% and PEEP of 9 Afebrile No overnight concerns from nursing Vitals Vital Signs Date Time Temp Pulse Resp B/P (MAP) Pulse Ox O2 Delivery O2 Flow Rate FiO2 06/26/21 06:00 42 20 133/69 (90) 96 Ventilator 06/26/21 04:00 97.9 97.9 06/25/21 17:36 40.0 Comments Visual exam done due to COVID-19. Intubated sedated RRR no accessory muscle use abd Obese no skin rash. No leg edema. Labs Laboratory Tests Test 06/24/21 07:35 06/24/21 09:00 06/24/21 11:52 06/24/21 11:53 O2 Saturation 89 % (92-99) Arterial Blood pH 7.47 (7.35-7.45) Arterial Blood pCO2 at Patient Temp 44 mmHg (35-46) Arterial Blood pO2 at Patient Temp 57 mmHg (75-108) Arterial Blood HCO3 31 mmol/L (21-28) Arterial Blood Base Excess 7 mmol/L (-3-3) FiO2 60 White Blood Count 10.7 x10^3/uL (4.0-11.0) Red Blood Count 4.23 x10^6/uL (3.50-5.40) Hemoglobin 10.3 g/dL (12.0-15.5) Hematocrit 31.8 % (36.0-47.0) Mean Corpuscular Volume 75 fL (79-100) Mean Corpuscular Hemoglobin 24 pg (25-35) Mean Corpuscular Hemoglobin Concent 32 g/dL (31-37) Red Cell Distribution Width 17.2 % (11.5-14.5) Platelet Count 232 x10^3/uL (140-400) Neutrophils (%) (Auto) 92 % (31-73) Lymphocytes (%) (Auto) 3 % (24-48) Monocytes (%) (Auto) 5 % (0-9) Eosinophils (%) (Auto) 0 % (0-3) Basophils (%) (Auto) 0 % (0-3) Neutrophils # (Auto) 9.8 x10^3/uL (1.8-7.7) Lymphocytes # (Auto) 0.3 x10^3/uL (1.0-4.8) Monocytes # (Auto) 0.5 x10^3/uL (0.0-1.1) Eosinophils # (Auto) 0.0 x10^3/uL (0.0-0.7) Basophils # (Auto) 0.0 x10^3/uL (0.0-0.2) Sodium Level 141 mmol/L (136-145) Potassium Level 4.4 mmol/L (3.5-5.1) Chloride Level 107 mmol/L (98-107) Carbon Dioxide Level 34 mmol/L (21-32) Anion Gap 0 (6-14) Blood Urea Nitrogen 16 mg/dL (7-20) Creatinine 0.4 mg/dL (0.6-1.0) Estimated GFR (Cockcroft-Gault) 176.8 Glucose Level 234 mg/dL (70-99) Calcium Level 7.8 mg/dL (8.5-10.1) Glucose (Fingerstick) 26 mg/dL (70-99) 233 mg/dL (70-99) Test 06/24/21 18:43 06/25/21 00:16 06/25/21 06:23 06/25/21 07:45 Glucose (Fingerstick) 189 mg/dL (70-99) 234 mg/dL (70-99) 193 mg/dL (70-99) O2 Saturation 87 % (92-99) Arterial Blood pH 7.46 (7.35-7.45) Arterial Blood pCO2 at Patient Temp 42 mmHg (35-46) Arterial Blood pO2 at Patient Temp 51 mmHg (75-108) Arterial Blood HCO3 29 mmol/L (21-28) Arterial Blood Base Excess 5 mmol/L (-3-3) FiO2 65 Test 06/25/21 12:14 06/25/21 12:30 06/25/21 15:55 06/25/21 17:40 Glucose (Fingerstick) 214 mg/dL (70-99) 224 mg/dL (70-99) White Blood Count 17.0 x10^3/uL (4.0-11.0) Red Blood Count 4.29 x10^6/uL (3.50-5.40) Hemoglobin 10.3 g/dL (12.0-15.5) Hematocrit 32.3 % (36.0-47.0) Mean Corpuscular Volume 75 fL (79-100) Mean Corpuscular Hemoglobin 24 pg (25-35) Mean Corpuscular Hemoglobin Concent 32 g/dL (31-37) Red Cell Distribution Width 17.1 % (11.5-14.5) Platelet Count 228 x10^3/uL (140-400) Neutrophils (%) (Auto) 91 % (31-73) Lymphocytes (%) (Auto) 4 % (24-48) Monocytes (%) (Auto) 5 % (0-9) Eosinophils (%) (Auto) 0 % (0-3) Basophils (%) (Auto) 0 % (0-3) Neutrophils # (Auto) 15.5 x10^3/uL (1.8-7.7) Lymphocytes # (Auto) 0.6 x10^3/uL (1.0-4.8) Monocytes # (Auto) 0.9 x10^3/uL (0.0-1.1) Eosinophils # (Auto) 0.0 x10^3/uL (0.0-0.7) Basophils # (Auto) 0.0 x10^3/uL (0.0-0.2) Sodium Level 140 mmol/L (136-145) Potassium Level 4.4 mmol/L (3.5-5.1) Chloride Level 104 mmol/L (98-107) Carbon Dioxide Level 33 mmol/L (21-32) Anion Gap 3 (6-14) Blood Urea Nitrogen 26 mg/dL (7-20) Creatinine 0.7 mg/dL (0.6-1.0) Estimated GFR (Cockcroft-Gault) 92.7 Glucose Level 223 mg/dL (70-99) Calcium Level 8.1 mg/dL (8.5-10.1) O2 Saturation 91 % (92-99) Arterial Blood pH 7.48 (7.35-7.45) Arterial Blood pCO2 at Patient Temp 43 mmHg (35-46) Arterial Blood pO2 at Patient Temp 60 mmHg (75-108) Arterial Blood HCO3 31 mmol/L (21-28) Arterial Blood Base Excess 7 mmol/L (-3-3) FiO2 70 Test 06/26/21 00:30 06/26/21 05:30 Glucose (Fingerstick) 193 mg/dL (70-99) White Blood Count 12.4 x10^3/uL (4.0-11.0) Red Blood Count 4.09 x10^6/uL (3.50-5.40) Hemoglobin 9.8 g/dL (12.0-15.5) Hematocrit 30.6 % (36.0-47.0) Mean Corpuscular Volume 75 fL (79-100) Mean Corpuscular Hemoglobin 24 pg (25-35) Mean Corpuscular Hemoglobin Concent 32 g/dL (31-37) Red Cell Distribution Width 16.9 % (11.5-14.5) Platelet Count 213 x10^3/uL (140-400) Sodium Level 145 mmol/L (136-145) Potassium Level 4.4 mmol/L (3.5-5.1) Chloride Level 107 mmol/L (98-107) Carbon Dioxide Level 35 mmol/L (21-32) Anion Gap 3 (6-14) Blood Urea Nitrogen 18 mg/dL (7-20) Creatinine 0.4 mg/dL (0.6-1.0) Estimated GFR (Cockcroft-Gault) 176.8 Glucose Level 234 mg/dL (70-99) Calcium Level 8.4 mg/dL (8.5-10.1) Laboratory Tests Test 06/25/21 07:45 06/25/21 12:14 06/25/21 12:30 06/25/21 15:55 O2 Saturation 87 % (92-99) 91 % (92-99) Arterial Blood pH 7.46 (7.35-7.45) 7.48 (7.35-7.45) Arterial Blood pCO2 at Patient Temp 42 mmHg (35-46) 43 mmHg (35-46) Arterial Blood pO2 at Patient Temp 51 mmHg (75-108) 60 mmHg (75-108) Arterial Blood HCO3 29 mmol/L (21-28) 31 mmol/L (21-28) Arterial Blood Base Excess 5 mmol/L (-3-3) 7 mmol/L (-3-3) FiO2 65 70 Glucose (Fingerstick) 214 mg/dL (70-99) White Blood Count 17.0 x10^3/uL (4.0-11.0) Red Blood Count 4.29 x10^6/uL (3.50-5.40) Hemoglobin 10.3 g/dL (12.0-15.5) Hematocrit 32.3 % (36.0-47.0) Mean Corpuscular Volume 75 fL (79-100) Mean Corpuscular Hemoglobin 24 pg (25-35) Mean Corpuscular Hemoglobin Concent 32 g/dL (31-37) Red Cell Distribution Width 17.1 % (11.5-14.5) Platelet Count 228 x10^3/uL (140-400) Neutrophils (%) (Auto) 91 % (31-73) Lymphocytes (%) (Auto) 4 % (24-48) Monocytes (%) (Auto) 5 % (0-9) Eosinophils (%) (Auto) 0 % (0-3) Basophils (%) (Auto) 0 % (0-3) Neutrophils # (Auto) 15.5 x10^3/uL (1.8-7.7) Lymphocytes # (Auto) 0.6 x10^3/uL (1.0-4.8) Monocytes # (Auto) 0.9 x10^3/uL (0.0-1.1) Eosinophils # (Auto) 0.0 x10^3/uL (0.0-0.7) Basophils # (Auto) 0.0 x10^3/uL (0.0-0.2) Sodium Level 140 mmol/L (136-145) Potassium Level 4.4 mmol/L (3.5-5.1) Chloride Level 104 mmol/L (98-107) Carbon Dioxide Level 33 mmol/L (21-32) Anion Gap 3 (6-14) Blood Urea Nitrogen 26 mg/dL (7-20) Creatinine 0.7 mg/dL (0.6-1.0) Estimated GFR (Cockcroft-Gault) 92.7 Glucose Level 223 mg/dL (70-99) Calcium Level 8.1 mg/dL (8.5-10.1) Test 06/25/21 17:40 06/26/21 00:30 06/26/21 05:30 Glucose (Fingerstick) 224 mg/dL (70-99) 193 mg/dL (70-99) White Blood Count 12.4 x10^3/uL (4.0-11.0) Red Blood Count 4.09 x10^6/uL (3.50-5.40) Hemoglobin 9.8 g/dL (12.0-15.5) Hematocrit 30.6 % (36.0-47.0) Mean Corpuscular Volume 75 fL (79-100) Mean Corpuscular Hemoglobin 24 pg (25-35) Mean Corpuscular Hemoglobin Concent 32 g/dL (31-37) Red Cell Distribution Width 16.9 % (11.5-14.5) Platelet Count 213 x10^3/uL (140-400) Sodium Level 145 mmol/L (136-145) Potassium Level 4.4 mmol/L (3.5-5.1) Chloride Level 107 mmol/L (98-107) Carbon Dioxide Level 35 mmol/L (21-32) Anion Gap 3 (6-14) Blood Urea Nitrogen 18 mg/dL (7-20) Creatinine 0.4 mg/dL (0.6-1.0) Estimated GFR (Cockcroft-Gault) 176.8 Glucose Level 234 mg/dL (70-99) Calcium Level 8.4 mg/dL (8.5-10.1) Medications Active Scripts Medications Dose Route/Sig Max Daily Dose Days Date Category Cyclobenzaprine Hcl 10 Mg Tablet 10 Mg PO TID 06/15/21 Reported Meloxicam 15 Mg Tablet 15 Mg PO DAILY 06/15/21 Reported Fluticasone Propionate Nasal [place] (Fluticasone Propionate) 16 Gm [place].susp 1 [place] NS DAILY 06/15/21 Reported Loratadine 10 Mg Tablet 10 Mg PO DAILY 06/15/21 Reported Furosemide 20 Mg Tablet 20 Mg PO DAILY 06/15/21 Reported Gabapentin (Gabapentin) 300 Mg Capsule 300 Mg PO TID 06/15/21 Reported Gabapentin (Gabapentin) 300 Mg Capsule 300 Mg PO TID 06/15/21 Reported Lisinopril 5 Mg Tablet 1 Tab PO DAILY 06/15/21 Reported Metformin Hcl 500 Mg Tablet 500 Mg PO BIDWMEALS 06/15/21 Reported Ozempic (Semaglutide) 0.25 Mg/0.2 Ml Pen.injctr 0.25 Mg SQ WEEKLY 06/15/21 Reported Comments Chest x-ray reviewed 06/26/2021. Bilateral diffuse patchy interstitial infiltrates. No significant change. reviewed Chest x-ray done 06/21/2021 was reviewed by me. Diffuse unchanged bilateral infiltrates. Impression . 1. Acute hypoxic respiratory failure secondary to ARDS/COVID-19 infection, worsening intubated 06/19/[address] of chest secondary to COVID-19 infection/ARDS 3. Diabetes type 2 with hyperglycemia 4. Hypertension 5. Hyperlipdemia 6. Obesity Plan . Updated 06/26/21 Continue current vent support, currently pressure control mode, 70% and PEEP 9, Follow ABG --make changes as needed Continue steroids will need full 10-day course, with slow taper, steroids started 06/14/2021 Completed full course of antibiotics with Zosyn, off antibiotics monitor S/P remdesivir Continue zinc/vitamin C Continue tube feeding for nutritional support DVT/GI prophylaxis: Lovenox Discussed with RN and RT message left for family/ unable to reach today Critical care time 30 minutes Updated 06/25/21 Continue current vent support 22/500/9/65% titrate peep fio2 as tolerated cxr in am Follow ABG --make changes as needed Continue steroids will need full 10-day course, with slow taper Continue antibiotics, currently on Zosyn S/P remdesivir Continue zinc/vitamin C Continue tube feeding for nutritional support DVT/GI prophylaxis: Lovenox Discussed with RN and RT NICOLETTE MORALES MD Jun 26, 2021 07:06
[2021-06-26 07:45] LABS: BASE EXCESS ABG 8 mmol/L (-3-3); HCO3 ABG 32 mmol/L (21-28); PCO2 ABG 41 mmHg (35-46); PO2 ABG 65 mmHg (75-108); SAT O2 ABG 92 % (92-99)
[2021-06-26 07:47] LABS: FIO2 ABG 70
[2021-06-26] MEDS: ENOXAPARIN 40 MG/0.4 ML SYRINGE. SQ SCH ×2 (08:21→20:38)
[2021-06-26] MEDS: ZINC SULFATE 220 MG CAPSULE. PO SCH (08:22)
[2021-06-26] MEDS: THIAMINE 100 MG TABLET. PO SCH (08:22)
[2021-06-26] MEDS: GABAPENTIN 300 MG CAPSULE. PO SCH ×3 (08:23→20:38)
[2021-06-26] MEDS: ASCORBIC ACID 1,000 MG TABLET PO SCH ×3 (08:23→20:38)
[2021-06-26] MEDS: FUROSEMIDE 40 MG/4 ML VIAL. IVP SCH (08:26)
[2021-06-26] MEDS: methylPREDNISolone SOD SUCC PF 40 MG/ML VIAL. IV SCH (08:28)
[2021-06-26] MEDS: PANTOPRAZOLE IV PUSH 40 MG VIAL. IVP SCH (08:29)
--- NOTE | 2021-06-26 08:31 | RAD ---
XR CHEST 1V 06/26/2021 Reason: resp fail Comparison: 06/25/2021 Technique: AP portable upright radiograph the chest Findings: Endotracheal tube, right PICC and nasogastric tube in stable acceptable position. Similar moderate to severe mixed interstitial and airspace opacities bilaterally. No large pleural effusion. No pneumoth orax. Cardiomediastinal silhouette silhouette is enlarged, stable. Impression: 1. Stable lines and tubes. 2. Similar to slightly improved mixed interstitial and airspace disease. Electronically signed by: Fish Gaona (06/26/2021 8:28 AM) [id number]
[2021-06-26] MEDS: LISINOPRIL 5 MG TABLET. PO SCH (09:00)
--- NOTE | 2021-06-26 12:31 | PDOC ---
[employer] PROGRESS NOTE Date of Service DOS: DATE: 06/26/21 TIME: 12:25 Chief Complaint Chief Complaint Acute hypoxic respiratory failure requiring BiPAP COVID-19 pneumonia Morbid obesity History of diabetes mellitus type 2 History of hypertension Severe malnutrition Plan: Increased insulin to 10 units twice daily and continue low intensity RISS Appreciate pulmonary recommendations for mechanical ventilation Continue IV thiamine and vitamin C IV Solu-Medrol 40 mg daily Titrate O2 supplementation to maintain O2 saturation greater than 92% Completed IV Remdesivir Lovenox for DVT prophylaxis Protonix while ventilated GI prophylaxis ADA diet Full code Discussed with RN and SW Disposition ICU management as above Surrogate decision maker is the undesignated at this time History of Present Illness History of Present Illness Patient is a transfer from [facility] in [facility] 40-year-old female with past medical history of diabetes, hypertension, dyslipidemia and morbid obesity who complains of shortness of breath 1 week ago and went to urgent care and found out that she was positive for Covid. She came in at 5:00 in the morning at [facility] is very hypoxic and was found to be her oxygen saturation was 68% she was put on a nonrebreather 15 L and she was improved to 90 to 93%. Patient is [id number]. Patient is a poor historian. She does not know what kind of medication she takes for her medical history. 06/15/21 Patient seen and examined at bedside in the ICU. She was face time talking with family members. She was still on nonrebreather. Reports that she feels improved from yesterday. Otherwise no complaints. Pulmonary consulted. Plan of care discussed with bedside nurse. 06/16/21 Patient seen and examined at bedside. On Vapotherm doing well. Stable from yesterday. No major complaints. Pulmonary following. Plan of care discussed with bedside nurse. 06/17/21 Patient seen and examined at bedside. Remains on Vapotherm although O2 requirement decreasing. Continue current plan. Plan of care discussed bedside nurse. 06/18/21 Patient seen and examined at bedside. On 40 L Vapotherm and now requiring NRB in addition. Worsening oxygenation. Although leukocytosis persists since patient is afebrile and on broad-spectrum antibiotics suspect this is related to steroids. Remdesivir finishes today. Pulmonary following. Plan of care discussed with bedside nurse. 06/19/2021: Intubated overnight in ICU. Afebrile. Currently breathing FiO2 100%. Completed remdesivir. We will continue IV steroids and prophylactic antibiotics. 30 minutes critical care time spent reviewing charts, reviewing labs, reviewing imaging, and discussion with RN. 06/20/2021: Low-grade fever overnight (T-max 99.7 F). Remains on vent, FiO2 90%, PEEP 10. Continue treatment with IV steroids and prophylactic IV antibiotics. She has completed a course of remdesivir. Continue supportive care. Critical care time 30 minutes spent reviewing charts, reviewing labs, imaging, discussion with RN. 06/21/21: Afebrile. On vent with FiO2 80%, PEEP 10. Continue treatment with prophylactic antibiotics steroids total of 10 day course (steroid taper to begin 06/24). Completed course remdesivir. Continue supportive care. Critical care time 30 minutes spent reviewing charts, reviewing labs, imaging, discussion with RN. 06/22/2021: Afebrile. Remains on ventilator with FiO2 70%, PEEP 10. Completed remdesivir. Continue antibiotics, steroids with slow taper. Continue supportive care. Critical care time 30 minutes spent reviewing charts, reviewing labs, imaging, discussion with RN. 06/23/2021: Afebrile. On vent with FiO2 of 70, PEEP 10. Continue antibiotics for diffuse bilateral opacities. Continue steroids with slow taper to begin tomorrow. Continue supportive care. Critical care time 30 minutes spent reviewing charts, reviewing labs, imaging, discussion with RN. 06/24/2021: Afebrile. On vent with FiO2 60%, PEEP 9. Continue antibiotics. Today is day 10 of steroids; will begin Solu-Medrol taper tomorrow. S/p remdesivir. Continue supportive care. Critical care time 30 minutes spent reviewing charts, reviewing labs, imaging, discussion with RN. 06/25/2021: On vent with FiO2 65, PEEP 9. Afebrile. Completed 10 days of steroids; will begin Solu-Medrol taper today at 60 mg twice daily. Will provide 60 mg twice daily, then 60 mg daily tomorrow. After which time will observe off antibiotics. S/P remdesivir. Continue supportive care. Critical care time 30 minutes spent reviewing charts, reviewing labs, imaging, discussion with RN. 06/26/2021 No acute events overnight. Patient still intubated and sedated vent settings at 20/450/70/9. Increased insulin dose to 10 units twice daily. Solu-Medrol decreased to 40 mg daily. Continue with IV Lasix daily and as needed for of volume overload. Patient's chart, labs, images were reviewed and discussed with RN A total of 34 minutes of critical care time was spent in reviewing chart, labs, and images. Discussed with RN and SW. Vitals/I&O Vitals/I&O: Vital Signs Date Time Temp Pulse Resp B/P (MAP) Pulse Ox O2 Delivery O2 Flow Rate FiO2 06/26/21 11:10 97 Ventilator 06/26/21 11:00 48 16 138/63 (88) 06/26/21 09:06 40.0 06/26/21 08:00 97.9 97.9 I & O 06/25/21 06/25/21 06/26/21 15:00 23:00 07:00 Intake Total 350 ml 2473.12 ml 1312 ml Output Total 2920 ml 5175 ml 1175 ml Balance -2570 ml -2701.88 ml 137 ml Physical Exam General: No acute distress, Other (Intubated and sedated) Heart: Regular rate, Normal S1, Normal S2 Abdomen: Normal bowel sounds, Soft Extremities: No clubbing, No edema, Normal pulses Skin: No rashes, No significant lesion Labs Labs: Laboratory Tests Test 06/25/21 12:30 06/25/21 15:55 06/25/21 17:40 06/26/21 00:30 White Blood Count 17.0 x10^3/uL (4.0-11.0) Red Blood Count 4.29 x10^6/uL (3.50-5.40) Hemoglobin 10.3 g/dL (12.0-15.5) Hematocrit 32.3 % (36.0-47.0) Mean Corpuscular Volume 75 fL (79-100) Mean Corpuscular Hemoglobin 24 pg (25-35) Mean Corpuscular Hemoglobin Concent 32 g/dL (31-37) Red Cell Distribution Width 17.1 % (11.5-14.5) Platelet Count 228 x10^3/uL (140-400) Neutrophils (%) (Auto) 91 % (31-73) Lymphocytes (%) (Auto) 4 % (24-48) Monocytes (%) (Auto) 5 % (0-9) Eosinophils (%) (Auto) 0 % (0-3) Basophils (%) (Auto) 0 % (0-3) Neutrophils # (Auto) 15.5 x10^3/uL (1.8-7.7) Lymphocytes # (Auto) 0.6 x10^3/uL (1.0-4.8) Monocytes # (Auto) 0.9 x10^3/uL (0.0-1.1) Eosinophils # (Auto) 0.0 x10^3/uL (0.0-0.7) Basophils # (Auto) 0.0 x10^3/uL (0.0-0.2) Sodium Level 140 mmol/L (136-145) Potassium Level 4.4 mmol/L (3.5-5.1) Chloride Level 104 mmol/L (98-107) Carbon Dioxide Level 33 mmol/L (21-32) Anion Gap 3 (6-14) Blood Urea Nitrogen 26 mg/dL (7-20) Creatinine 0.7 mg/dL (0.6-1.0) Estimated GFR (Cockcroft-Gault) 92.7 Glucose Level 223 mg/dL (70-99) Calcium Level 8.1 mg/dL (8.5-10.1) O2 Saturation 91 % (92-99) Arterial Blood pH 7.48 (7.35-7.45) Arterial Blood pCO2 at Patient Temp 43 mmHg (35-46) Arterial Blood pO2 at Patient Temp 60 mmHg (75-108) Arterial Blood HCO3 31 mmol/L (21-28) Arterial Blood Base Excess 7 mmol/L (-3-3) FiO2 70 Glucose (Fingerstick) 224 mg/dL (70-99) 193 mg/dL (70-99) Test 06/26/21 05:30 06/26/21 07:25 06/26/21 11:56 White Blood Count 12.4 x10^3/uL (4.0-11.0) Red Blood Count 4.09 x10^6/uL (3.50-5.40) Hemoglobin 9.8 g/dL (12.0-15.5) Hematocrit 30.6 % (36.0-47.0) Mean Corpuscular Volume 75 fL (79-100) Mean Corpuscular Hemoglobin 24 pg (25-35) Mean Corpuscular Hemoglobin Concent 32 g/dL (31-37) Red Cell Distribution Width 16.9 % (11.5-14.5) Platelet Count 213 x10^3/uL (140-400) Sodium Level 145 mmol/L (136-145) Potassium Level 4.4 mmol/L (3.5-5.1) Chloride Level 107 mmol/L (98-107) Carbon Dioxide Level 35 mmol/L (21-32) Anion Gap 3 (6-14) Blood Urea Nitrogen 18 mg/dL (7-20) Creatinine 0.4 mg/dL (0.6-1.0) Estimated GFR (Cockcroft-Gault) 176.8 Glucose Level 234 mg/dL (70-99) Calcium Level 8.4 mg/dL (8.5-10.1) O2 Saturation 92 % (92-99) Arterial Blood pH 7.51 (7.35-7.45) Arterial Blood pCO2 at Patient Temp 41 mmHg (35-46) Arterial Blood pO2 at Patient Temp 65 mmHg (75-108) Arterial Blood HCO3 32 mmol/L (21-28) Arterial Blood Base Excess 8 mmol/L (-3-3) FiO2 70 Glucose (Fingerstick) 176 mg/dL (70-99) Comment Review of Relevant I have reviewed the following items man (where applicable) has been applied. Medications: Current Medications Medications (Trade) Dose Ordered Sig/Jun Route PRN Reason Start Time Stop Time Status Last Admin Dose Admin Methylprednisolone Sodium Succinate (SOLU-Medrol 125MG VIAL) 60 mg BID IV 06/25/21 21:00 06/26/21 07:05 DC 06/25/21 20:43 Furosemide (Lasix) 40 mg 1X ONCE IVP 06/25/21 12:45 06/25/21 12:50 DC 06/25/21 12:51 Insulin Glargine (Lantus Syringe) 12 unit QHS SQ 06/25/21 21:00 06/25/21 20:44 Furosemide (Lasix) 40 mg DAILY IVP 06/26/21 09:00 06/26/21 08:26 Methylprednisolone Sodium Succinate (SOLU-Medrol 40MG VIAL) 40 mg DAILY IV 06/26/21 09:00 06/26/21 08:28 Justifications for Admission Other Justification Acute hypoxic respiratory failure and Covid pneumonia REENA MORA MD Jun 26, 2021 12:31
[2021-06-26] MEDS: INSULIN GLARGINE SYRINGE. SQ SCH (20:38)
[2021-06-27] VITALS (24 sets, daily range): BP systolic 82–110; BP diastolic 37–53
[2021-06-27] MEDS: INSULIN LISPRO 300 UNITS/3 ML VIAL. SQ SCH ×4 (00:13→18:28)
[2021-06-27] MEDS: PROPOFOL 100 ML IV PRN ×5 (01:42→20:25)
[2021-06-27 07:12] LABS: BASE EXCESS ABG 8 mmol/L (-3-3); HCO3 ABG 32 mmol/L (21-28); PCO2 ABG 43 mmHg (35-46); PO2 ABG 58 mmHg (75-108); SAT O2 ABG 89 % (92-99)
[2021-06-27] MEDS: LISINOPRIL 5 MG TABLET. PO SCH (07:31)
[2021-06-27] MEDS: MIDAZOLAM 100mg/100ml NS BAG 100 ML IV PRN ×2 (07:38→18:29)
[2021-06-27] MEDS: FUROSEMIDE 40 MG/4 ML VIAL. IVP SCH (07:50)
[2021-06-27] MEDS: PANTOPRAZOLE IV PUSH 40 MG VIAL. IVP SCH (07:51)
[2021-06-27] MEDS: ENOXAPARIN 40 MG/0.4 ML SYRINGE. SQ SCH ×2 (07:51→20:27)
[2021-06-27] MEDS: methylPREDNISolone SOD SUCC PF 40 MG/ML VIAL. IV SCH (07:51)
[2021-06-27] MEDS: ZINC SULFATE 220 MG CAPSULE. PO SCH (07:52)
[2021-06-27] MEDS: ASCORBIC ACID 1,000 MG TABLET PO SCH ×3 (07:52→20:26)
[2021-06-27] MEDS: THIAMINE 100 MG TABLET. PO SCH (07:52)
[2021-06-27] MEDS: GABAPENTIN 300 MG CAPSULE. PO SCH ×3 (07:52→20:26)
[2021-06-27] MEDS: INSULIN GLARGINE SYRINGE. SQ SCH ×2 (08:48→20:25)
[2021-06-27] MEDS ORDERED: VECURONIUM BOLUS 10 MG VIAL. IV ONE (08:51)
[2021-06-27] MEDS: VECURONIUM BOLUS 10 MG VIAL. IV PRN (09:26)
--- NOTE | 2021-06-27 10:12 | NUR ---
Sedation titrated down overnight, by 0800 assessment, patient opens eyes, moves all extremities, does not follow commands. However, patient persistently coughing and tidal volumes on the ventilator down to 100-200. Sedation increased. Even after increase in sedation, patient still tachypneic and tidal volume still around 200. Received the order for vecuronium prn, see orders. Vecuronium given, patient's tidal volumes back up around 550.
--- NOTE | 2021-06-27 10:30 | PDOC ---
PULMONARY PROGRESS NOTES DATE: 06/27/21 TIME: 10:28 Subjective Patient remains on ventilatory support, pressure control mode-80% and PEEP of 9. Oxygen requirement has slightly increased. Afebrile No overnight concerns from nursing Vitals Vital Signs Date Time Temp Pulse Resp B/P (MAP) Pulse Ox O2 Delivery O2 Flow Rate FiO2 06/27/21 10:00 75 16 88/46 (60) 99 Ventilator 06/27/21 04:00 98.4 98.4 06/26/21 17:08 40.0 Comments Visual exam done due to COVID-19. Intubated sedated RRR no accessory muscle use abd Obese no skin rash. No leg edema. Labs Laboratory Tests Test 06/25/21 12:14 06/25/21 12:30 06/25/21 15:55 06/25/21 17:40 Glucose (Fingerstick) 214 mg/dL (70-99) 224 mg/dL (70-99) White Blood Count 17.0 x10^3/uL (4.0-11.0) Red Blood Count 4.29 x10^6/uL (3.50-5.40) Hemoglobin 10.3 g/dL (12.0-15.5) Hematocrit 32.3 % (36.0-47.0) Mean Corpuscular Volume 75 fL (79-100) Mean Corpuscular Hemoglobin 24 pg (25-35) Mean Corpuscular Hemoglobin Concent 32 g/dL (31-37) Red Cell Distribution Width 17.1 % (11.5-14.5) Platelet Count 228 x10^3/uL (140-400) Neutrophils (%) (Auto) 91 % (31-73) Lymphocytes (%) (Auto) 4 % (24-48) Monocytes (%) (Auto) 5 % (0-9) Eosinophils (%) (Auto) 0 % (0-3) Basophils (%) (Auto) 0 % (0-3) Neutrophils # (Auto) 15.5 x10^3/uL (1.8-7.7) Lymphocytes # (Auto) 0.6 x10^3/uL (1.0-4.8) Monocytes # (Auto) 0.9 x10^3/uL (0.0-1.1) Eosinophils # (Auto) 0.0 x10^3/uL (0.0-0.7) Basophils # (Auto) 0.0 x10^3/uL (0.0-0.2) Sodium Level 140 mmol/L (136-145) Potassium Level 4.4 mmol/L (3.5-5.1) Chloride Level 104 mmol/L (98-107) Carbon Dioxide Level 33 mmol/L (21-32) Anion Gap 3 (6-14) Blood Urea Nitrogen 26 mg/dL (7-20) Creatinine 0.7 mg/dL (0.6-1.0) Estimated GFR (Cockcroft-Gault) 92.7 Glucose Level 223 mg/dL (70-99) Calcium Level 8.1 mg/dL (8.5-10.1) O2 Saturation 91 % (92-99) Arterial Blood pH 7.48 (7.35-7.45) Arterial Blood pCO2 at Patient Temp 43 mmHg (35-46) Arterial Blood pO2 at Patient Temp 60 mmHg (75-108) Arterial Blood HCO3 31 mmol/L (21-28) Arterial Blood Base Excess 7 mmol/L (-3-3) FiO2 70 Test 06/26/21 00:30 06/26/21 05:30 06/26/21 07:25 06/26/21 11:56 Glucose (Fingerstick) 193 mg/dL (70-99) 176 mg/dL (70-99) White Blood Count 12.4 x10^3/uL (4.0-11.0) Red Blood Count 4.09 x10^6/uL (3.50-5.40) Hemoglobin 9.8 g/dL (12.0-15.5) Hematocrit 30.6 % (36.0-47.0) Mean Corpuscular Volume 75 fL (79-100) Mean Corpuscular Hemoglobin 24 pg (25-35) Mean Corpuscular Hemoglobin Concent 32 g/dL (31-37) Red Cell Distribution Width 16.9 % (11.5-14.5) Platelet Count 213 x10^3/uL (140-400) Sodium Level 145 mmol/L (136-145) Potassium Level 4.4 mmol/L (3.5-5.1) Chloride Level 107 mmol/L (98-107) Carbon Dioxide Level 35 mmol/L (21-32) Anion Gap 3 (6-14) Blood Urea Nitrogen 18 mg/dL (7-20) Creatinine 0.4 mg/dL (0.6-1.0) Estimated GFR (Cockcroft-Gault) 176.8 Glucose Level 234 mg/dL (70-99) Calcium Level 8.4 mg/dL (8.5-10.1) O2 Saturation 92 % (92-99) Arterial Blood pH 7.51 (7.35-7.45) Arterial Blood pCO2 at Patient Temp 41 mmHg (35-46) Arterial Blood pO2 at Patient Temp 65 mmHg (75-108) Arterial Blood HCO3 32 mmol/L (21-28) Arterial Blood Base Excess 8 mmol/L (-3-3) FiO2 70 Test 06/26/21 18:03 06/26/21 20:22 06/27/21 00:12 06/27/21 05:34 Glucose (Fingerstick) 165 mg/dL (70-99) 142 mg/dL (70-99) 161 mg/dL (70-99) 126 mg/dL (70-99) Test 06/27/21 07:08 O2 Saturation 89 % (92-99) Arterial Blood pH 7.48 (7.35-7.45) Arterial Blood pCO2 at Patient Temp 43 mmHg (35-46) Arterial Blood pO2 at Patient Temp 58 mmHg (75-108) Arterial Blood HCO3 32 mmol/L (21-28) Arterial Blood Base Excess 8 mmol/L (-3-3) FiO2 70% vent Laboratory Tests Test 06/26/21 11:56 06/26/21 18:03 06/26/21 20:22 06/27/21 00:12 Glucose (Fingerstick) 176 mg/dL (70-99) 165 mg/dL (70-99) 142 mg/dL (70-99) 161 mg/dL (70-99) Test 06/27/21 05:34 06/27/21 07:08 Glucose (Fingerstick) 126 mg/dL (70-99) O2 Saturation 89 % (92-99) Arterial Blood pH 7.48 (7.35-7.45) Arterial Blood pCO2 at Patient Temp 43 mmHg (35-46) Arterial Blood pO2 at Patient Temp 58 mmHg (75-108) Arterial Blood HCO3 32 mmol/L (21-28) Arterial Blood Base Excess 8 mmol/L (-3-3) FiO2 70% vent Medications Active Scripts Medications Dose Route/Sig Max Daily Dose Days Date Category Cyclobenzaprine Hcl 10 Mg Tablet 10 Mg PO TID 06/15/21 Reported Meloxicam 15 Mg Tablet 15 Mg PO DAILY 06/15/21 Reported Fluticasone Propionate Nasal [place] (Fluticasone Propionate) 16 Gm [place].susp 1 [place] NS DAILY 06/15/21 Reported Loratadine 10 Mg Tablet 10 Mg PO DAILY 06/15/21 Reported Furosemide 20 Mg Tablet 20 Mg PO DAILY 06/15/21 Reported Gabapentin (Gabapentin) 300 Mg Capsule 300 Mg PO TID 06/15/21 Reported Gabapentin (Gabapentin) 300 Mg Capsule 300 Mg PO TID 06/15/21 Reported Lisinopril 5 Mg Tablet 1 Tab PO DAILY 06/15/21 Reported Metformin Hcl 500 Mg Tablet 500 Mg PO BIDWMEALS 06/15/21 Reported Ozempic (Semaglutide) 0.25 Mg/0.2 Ml Pen.injctr 0.25 Mg SQ WEEKLY 06/15/21 Reported Comments Chest x-ray reviewed 06/26/2021. Bilateral diffuse patchy interstitial infiltrates. No significant change. reviewed Chest x-ray done 06/21/2021 was reviewed by me. Diffuse unchanged bilateral infiltrates. Impression . 1. Acute hypoxic respiratory failure secondary to ARDS/COVID-19 infection, worsening intubated 06/19/[address] of chest secondary to COVID-19 infection/ARDS 3. Diabetes type 2 with hyperglycemia 4. Hypertension 5. Hyperlipdemia 6. Obesity Plan . Updated 06/27/21 Continue current vent support, currently pressure control mode, 80% and PEEP 9, Follow ABG --make changes as needed Continue steroids will need full 10-day course, with slow taper, steroids started 06/14/2021 Completed full course of antibiotics with Zosyn, off antibiotics monitor S/P remdesivir Continue zinc/vitamin C Continue tube feeding for nutritional support DVT/GI prophylaxis: Lovenox Discussed with RN and RT message left for daughter/ unable to reac We may not have her correct number. We will try to find the correct number and reach the family again. addend: spoke with daughter in detail . code status discussed as well. Full code Critical care time 30 minutes Updated 06/26/21 Continue current vent support, currently pressure control mode, 70% and PEEP 9, Follow ABG --make changes as needed Continue steroids will need full 10-day course, with slow taper, steroids sta rted 06/14/2021 Completed full course of antibiotics with Zosyn, off antibiotics monitor S/P remdesivir Continue zinc/vitamin C Continue tube feeding for nutritional support DVT/GI prophylaxis: Lovenox Discussed with RN and RT message left for family/ unable to reach today Critical care time 30 minutes Updated 06/25/21 Continue current vent support 22/500/9/65% titrate peep fio2 as tolerated cxr in am Follow ABG --make changes as needed Continue steroids will need full 10-day course, with slow taper Continue antibiotics, currently on Zosyn S/P remdesivir Continue zinc/vitamin C Continue tube feeding for nutritional support DVT/GI prophylaxis: Lovenox Discussed with RN and RT NICOLETTE MORALES MD Jun 27, 2021 10:30
--- NOTE | 2021-06-27 11:21 | PDOC ---
[employer] PROGRESS NOTE Date of Service DOS: DATE: 06/27/21 TIME: 11:14 Chief Complaint Chief Complaint Acute hypoxic respiratory failure requiring BiPAP COVID-19 pneumonia Morbid obesity History of diabetes mellitus type 2 History of hypertension Severe malnutrition Plan: Increased insulin to 10 units twice daily and continue low intensity RISS Appreciate pulmonary recommendations for mechanical ventilation Continue IV thiamine and vitamin C IV Solu-Medrol 40 mg daily Titrate O2 supplementation to maintain O2 saturation greater than 92% Completed IV Remdesivir Lovenox for DVT prophylaxis Protonix while ventilated GI prophylaxis ADA diet Full code Discussed with RN and SW Disposition ICU management as above Surrogate decision maker is the undesignated at this time History of Present Illness History of Present Illness Patient is a transfer from [facility] in [facility] 40-year-old female with past medical history of diabetes, hypertension, dyslipidemia and morbid obesity who complains of shortness of breath 1 week ago and went to urgent care and found out that she was positive for Covid. She came in at 5:00 in the morning at [facility] is very hypoxic and was found to be her oxygen saturation was 68% she was put on a nonrebreather 15 L and she was improved to 90 to 93%. Patient is [id number]. Patient is a poor historian. She does not know what kind of medication she takes for her medical history. 06/15/21 Patient seen and examined at bedside in the ICU. She was face time talking with family members. She was still on nonrebreather. Reports that she feels improved from yesterday. Otherwise no complaints. Pulmonary consulted. Plan of care discussed with bedside nurse. 06/16/21 Patient seen and examined at bedside. On Vapotherm doing well. Stable from yesterday. No major complaints. Pulmonary following. Plan of care discussed with bedside nurse. 06/17/21 Patient seen and examined at bedside. Remains on Vapotherm although O2 requirement decreasing. Continue current plan. Plan of care discussed bedside nurse. 06/18/21 Patient seen and examined at bedside. On 40 L Vapotherm and now requiring NRB in addition. Worsening oxygenation. Although leukocytosis persists since patient is afebrile and on broad-spectrum antibiotics suspect this is related to steroids. Remdesivir finishes today. Pulmonary following. Plan of care discussed with bedside nurse. 06/19/2021: Intubated overnight in ICU. Afebrile. Currently breathing FiO2 100%. Completed remdesivir. We will continue IV steroids and prophylactic antibiotics. 30 minutes critical care time spent reviewing charts, reviewing labs, reviewing imaging, and discussion with RN. 06/20/2021: Low-grade fever overnight (T-max 99.7 F). Remains on vent, FiO2 90%, PEEP 10. Continue treatment with IV steroids and prophylactic IV antibiotics. She has completed a course of remdesivir. Continue supportive care. Critical care time 30 minutes spent reviewing charts, reviewing labs, imaging, discussion with RN. 06/21/21: Afebrile. On vent with FiO2 80%, PEEP 10. Continue treatment with prophylactic antibiotics steroids total of 10 day course (steroid taper to begin 06/24). Completed course remdesivir. Continue supportive care. Critical care time 30 minutes spent reviewing charts, reviewing labs, imaging, discussion with RN. 06/22/2021: Afebrile. Remains on ventilator with FiO2 70%, PEEP 10. Completed remdesivir. Continue antibiotics, steroids with slow taper. Continue supportive care. Critical care time 30 minutes spent reviewing charts, reviewing labs, imaging, discussion with RN. 06/23/2021: Afebrile. On vent with FiO2 of 70, PEEP 10. Continue antibiotics for diffuse bilateral opacities. Continue steroids with slow taper to begin tomorrow. Continue supportive care. Critical care time 30 minutes spent reviewing charts, reviewing labs, imaging, discussion with RN. 06/24/2021: Afebrile. On vent with FiO2 60%, PEEP 9. Continue antibiotics. Today is day 10 of steroids; will begin Solu-Medrol taper tomorrow. S/p remdesivir. Continue supportive care. Critical care time 30 minutes spent reviewing charts, reviewing labs, imaging, discussion with RN. 06/25/2021: On vent with FiO2 65, PEEP 9. Afebrile. Completed 10 days of steroids; will begin Solu-Medrol taper today at 60 mg twice daily. Will provide 60 mg twice daily, then 60 mg daily tomorrow. After which time will observe off antibiotics. S/P remdesivir. Continue supportive care. Critical care time 30 minutes spent reviewing charts, reviewing labs, imaging, discussion with RN. 06/26/2021 No acute events overnight. Patient still intubated and sedated vent settings at 20/450/70/9. Increased insulin dose to 10 units twice daily. Solu-Medrol decreased to 40 mg daily. Continue with IV Lasix daily and as needed for of volume overload. Patient's chart, labs, images were reviewed and discussed with RN A total of 34 minutes of critical care time was spent in reviewing chart, labs, and images. Discussed with RN and SW. 06/27/21 No acute events overnight. Patient is intubated and sedated. Vent settings at assist control at saturating 97%. Vent settings set at 16/80/9. ABG at 7.4 8/43/58/32. Follow-up A total of 32 minutes of critical care time was spent in reviewing chart, labs, and images. Discussed with RN and SW. Vitals/I&O Vitals/I&O: Vital Signs Date Time Temp Pulse Resp B/P (MAP) Pulse Ox O2 Delivery O2 Flow Rate FiO2 06/27/21 11:00 67 16 86/44 (58) 99 Ventilator 06/27/21 08:00 98.2 98.2 06/26/21 17:08 40.0 I & O 06/26/21 06/26/21 06/27/21 15:00 23:00 07:00 Intake Total 360 ml 1900.41 ml 2056 ml Output Total 2300 ml 800 ml 675 ml Balance -1940 ml 1100.41 ml 1381 ml Physical Exam General: No acute distress, Other (Intubated and sedated) Heart: Regular rate, Normal S1, Normal S2 Abdomen: Normal bowel sounds, Soft Extremities: No clubbing, No edema, Normal pulses Skin: No rashes, No significant lesion Labs Labs: Laboratory Tests Test 06/26/21 11:56 06/26/21 18:03 06/26/21 20:22 06/27/21 00:12 Glucose (Fingerstick) 176 mg/dL (70-99) 165 mg/dL (70-99) 142 mg/dL (70-99) 161 mg/dL (70-99) Test 06/27/21 05:34 06/27/21 07:08 Glucose (Fingerstick) 126 mg/dL (70-99) O2 Saturation 89 % (92-99) Arterial Blood pH 7.48 (7.35-7.45) Arterial Blood pCO2 at Patient Temp 43 mmHg (35-46) Arterial Blood pO2 at Patient Temp 58 mmHg (75-108) Arterial Blood HCO3 32 mmol/L (21-28) Arterial Blood Base Excess 8 mmol/L (-3-3) FiO2 70% vent Comment Review of Relevant I have reviewed the following items man (where applicable) has been applied. Medications: Current Medications Medications (Trade) Dose Ordered Sig/Jun Route PRN Reason Start Time Stop Time Status Last Admin Dose Admin Insulin Glargine (Lantus Syringe) 10 unit BID SQ 06/26/21 21:00 06/27/21 08:48 Vecuronium [place] (Norcuron Bolus) 6 mg PRN Q6HRS PRN IV VENTILATOR COMPLIANCE 06/27/21 09:15 06/27/21 09:26 Justifications for Admission Other Justification Acute hypoxic respiratory failure and Covid pneumonia REENA MORA MD Jun 27, 2021 11:21
[2021-06-28] VITALS (24 sets, daily range): BP systolic 83–153; BP diastolic 36–64
[2021-06-28] MEDS: PROPOFOL 100 ML IV PRN ×5 (00:24→20:38)
[2021-06-28] MEDS: INSULIN LISPRO 300 UNITS/3 ML VIAL. SQ SCH ×4 (06:00→17:32)
[2021-06-28] MEDS: THIAMINE 100 MG TABLET. PO SCH (07:25)
[2021-06-28] MEDS: ENOXAPARIN 40 MG/0.4 ML SYRINGE. SQ SCH ×2 (07:25→20:26)
[2021-06-28] MEDS: ASCORBIC ACID 1,000 MG TABLET PO SCH ×3 (07:26→20:26)
[2021-06-28] MEDS: FUROSEMIDE 40 MG/4 ML VIAL. IVP SCH (07:26)
[2021-06-28] MEDS: methylPREDNISolone SOD SUCC PF 40 MG/ML VIAL. IV SCH (07:26)
[2021-06-28] MEDS: ZINC SULFATE 220 MG CAPSULE. PO SCH (07:26)
[2021-06-28] MEDS: PANTOPRAZOLE IV PUSH 40 MG VIAL. IVP SCH (07:26)
[2021-06-28] MEDS: GABAPENTIN 300 MG CAPSULE. PO SCH ×3 (07:26→20:26)
[2021-06-28] MEDS: LISINOPRIL 5 MG TABLET. PO SCH (07:27)
[2021-06-28 08:01] LABS: BASE EXCESS ABG 7 mmol/L (-3-3); HCO3 ABG 32 mmol/L (21-28); PCO2 ABG 43 mmHg (35-46); PO2 ABG 67 mmHg (75-108); SAT O2 ABG 93 % (92-99)
[2021-06-28] MEDS: INSULIN GLARGINE SYRINGE. SQ SCH ×2 (09:14→20:26)
--- NOTE | 2021-06-28 10:59 | PDOC ---
PULMONARY PROGRESS NOTES DATE: 06/28/21 TIME: 10:57 Subjective Patient remains on ventilatory support Afebrile No overnight concerns from nursing Vitals Vital Signs Date Time Temp Pulse Resp B/P (MAP) Pulse Ox O2 Delivery O2 Flow Rate FiO2 06/28/21 10:00 82 16 100/53 (69) 96 Ventilator 06/28/21 08:00 98.3 98.3 06/27/21 20:56 40.0 Comments Visual exam done due to COVID-19. Intubated sedated RRR no accessory muscle use abd Obese no skin rash. No leg edema. Labs Laboratory Tests Test 06/26/21 11:56 06/26/21 18:03 06/26/21 20:22 06/27/21 00:12 Glucose (Fingerstick) 176 mg/dL (70-99) 165 mg/dL (70-99) 142 mg/dL (70-99) 161 mg/dL (70-99) Test 06/27/21 05:34 06/27/21 07:08 06/27/21 11:46 06/27/21 18:16 Glucose (Fingerstick) 126 mg/dL (70-99) 99 mg/dL (70-99) 153 mg/dL (70-99) O2 Saturation 89 % (92-99) Arterial Blood pH 7.48 (7.35-7.45) Arterial Blood pCO2 at Patient Temp 43 mmHg (35-46) Arterial Blood pO2 at Patient Temp 58 mmHg (75-108) Arterial Blood HCO3 32 mmol/L (21-28) Arterial Blood Base Excess 8 mmol/L (-3-3) FiO2 70% vent Test 06/28/21 00:05 06/28/21 07:57 Glucose (Fingerstick) 141 mg/dL (70-99) O2 Saturation 93 % (92-99) Arterial Blood pH 7.49 (7.35-7.45) Arterial Blood pCO2 at Patient Temp 43 mmHg (35-46) Arterial Blood pO2 at Patient Temp 67 mmHg (75-108) Arterial Blood HCO3 32 mmol/L (21-28) Arterial Blood Base Excess 7 mmol/L (-3-3) FiO2 80% vent Laboratory Tests Test 06/27/21 11:46 06/27/21 18:16 06/28/21 00:05 06/28/21 07:57 Glucose (Fingerstick) 99 mg/dL (70-99) 153 mg/dL (70-99) 141 mg/dL (70-99) O2 Saturation 93 % (92-99) Arterial Blood pH 7.49 (7.35-7.45) Arterial Blood pCO2 at Patient Temp 43 mmHg (35-46) Arterial Blood pO2 at Patient Temp 67 mmHg (75-108) Arterial Blood HCO3 32 mmol/L (21-28) Arterial Blood Base Excess 7 mmol/L (-3-3) FiO2 80% vent Medications Active Scripts Medications Dose Route/Sig Max Daily Dose Days Date Category Cyclobenzaprine Hcl 10 Mg Tablet 10 Mg PO TID 06/15/21 Reported Meloxicam 15 Mg Tablet 15 Mg PO DAILY 06/15/21 Reported Fluticasone Propionate Nasal [place] (Fluticasone Propionate) 16 Gm [place].susp 1 [place] NS DAILY 06/15/21 Reported Loratadine 10 Mg Tablet 10 Mg PO DAILY 06/15/21 Reported Furosemide 20 Mg Tablet 20 Mg PO DAILY 06/15/21 Reported Gabapentin (Gabapentin) 300 Mg Capsule 300 Mg PO TID 06/15/21 Reported Gabapentin (Gabapentin) 300 Mg Capsule 300 Mg PO TID 06/15/21 Reported Lisinopril 5 Mg Tablet 1 Tab PO DAILY 06/15/21 Reported Metformin Hcl 500 Mg Tablet 500 Mg PO BIDWMEALS 06/15/21 Reported Ozempic (Semaglutide) 0.25 Mg/0.2 Ml Pen.injctr 0.25 Mg SQ WEEKLY 06/15/21 Reported Comments Chest x-ray reviewed 06/26/2021. Bilateral diffuse patchy interstitial infiltrates. No significant change. reviewed Chest x-ray done 06/21/2021 was reviewed by me. Diffuse unchanged bilateral infiltrates. Impression . 1. Acute hypoxic respiratory failure secondary to ARDS/COVID-19 infection, worsening intubated 06/19/[address] of chest secondary to COVID-19 infection/ARDS 3. Diabetes type 2 with hyperglycemia 4. Hypertension 5. Hyperlipdemia 6. Obesity Plan . Updated 06/28/21 Continue current vent support, currently pressure control mode, 80% and PEEP 9, Follow ABG --make changes as needed DC steroids S/P remdesivir Continue zinc/vitamin C Continue tube feeding for nutritional support DVT/GI prophylaxis: Lovenox Discussed with RN and RT Full code Critical care time 30 minutes Updated 06/27/21 Continue current vent support, currently pressure control mode, 80% and PEEP 9, Follow ABG --make changes as needed Continue steroids will need full 10-day course, with slow taper, steroids started 06/14/2021 Completed full course of antibiotics with Zosyn, off antibiotics monitor S/P remdesivir Continue zinc/vitamin C Continue tube feeding for nutritional support DVT/GI prophylaxis: Lovenox Discussed with RN and RT message left for daughter/ unable to reac We may not have her correct number. We will try to find the correct number and reach the family again. addend: spoke with daughter in detail . code status discussed as well. Full code Critical care time 30 minutes Updated 06/26/21 Continue current vent support, currently pressure control mode, 70% and PEEP 9, Follow ABG --make changes as needed Continue steroids will need full 10-day course, with slow taper, steroids started 06/14/2021 Completed full course of antibiotics with Zosyn, off antibiotics monitor S/P remdesivir Continue zinc/vitamin C Continue tube feeding for nutritional support DVT/GI prophylaxis: Lovenox Discussed with RN and RT message left for family/ unable to reach today Critical care time 30 minutes NICOLETTE MORALES MD Jun 28, 2021 10:59
--- NOTE | 2021-06-28 11:48 | PDOC ---
[employer] PROGRESS NOTE Date of Service DOS: DATE: 06/28/21 TIME: 11:47 Chief Complaint Chief Complaint Acute hypoxic respiratory failure requiring BiPAP COVID-19 pneumonia Morbid obesity History of diabetes mellitus type 2 History of hypertension Severe malnutrition Plan: Continue insulin to 10 units twice daily and continue low intensity RISS Appreciate pulmonary recommendations for mechanical ventilation Continue IV thiamine and vitamin C IV Solu-Medrol 40 mg daily Titrate O2 supplementation to maintain O2 saturation greater than 92% Completed IV Remdesivir Lovenox for DVT prophylaxis Protonix while ventilated GI prophylaxis ADA diet Full code Discussed with RN and SW Disposition ICU management as above Surrogate decision maker is the undesignated at this time History of Present Illness History of Present Illness Patient is a transfer from [facility] in [facility] 40-year-old female with past medical history of diabetes, hypertension, dyslipidemia and morbid obesity who complains of shortness of breath 1 week ago and went to urgent care and found out that she was positive for Covid. She came in at 5:00 in the morning at [facility] is very hypoxic and was found to be her oxygen saturation was 68% she was put on a nonrebreather 15 L and she was improved to 90 to 93%. Patient is [id number]. Patient is a poor historian. She does not know what kind of medication she takes for her medical history. 06/15/21 Patient seen and examined at bedside in the ICU. She was face time talking with family members. She was still on nonrebreather. Reports that she feels improved from yesterday. Otherwise no complaints. Pulmonary consulted. Plan of care discussed with bedside nurse. 06/16/21 Patient seen and examined at bedside. On Vapotherm doing well. Stable from yesterday. No major complaints. Pulmonary following. Plan of care discussed with bedside nurse. 06/17/21 Patient seen and examined at bedside. Remains on Vapotherm although O2 requirement decreasing. Continue current plan. Plan of care discussed bedside nurse. 06/18/21 Patient seen and examined at bedside. On 40 L Vapotherm and now requiring NRB in addition. Worsening oxygenation. Although leukocytosis persists since patient is afebrile and on broad-spectrum antibiotics suspect this is related to steroids. Remdesivir finishes today. Pulmonary following. Plan of care discussed with bedside nurse. 06/19/2021: Intubated overnight in ICU. Afebrile. Currently breathing FiO2 100%. Completed remdesivir. We will continue IV steroids and prophylactic antibiotics. 30 minutes critical care time spent reviewing charts, reviewing labs, reviewing imaging, and discussion with RN. 06/20/2021: Low-grade fever overnight (T-max 99.7 F). Remains on vent, FiO2 90%, PEEP 10. Continue treatment with IV steroids and prophylactic IV antibiotics. She has completed a course of remdesivir. Continue supportive care. Critical care time 30 minutes spent reviewing charts, reviewing labs, imaging, discussion with RN. 06/21/21: Afebrile. On vent with FiO2 80%, PEEP 10. Continue treatment with prophylactic antibiotics steroids total of 10 day course (steroid taper to begin 06/24). Completed course remdesivir. Continue supportive care. Critical care time 30 minutes spent reviewing charts, reviewing labs, imaging, discussion with RN. 06/22/2021: Afebrile. Remains on ventilator with FiO2 70%, PEEP 10. Completed remdesivir. Continue antibiotics, steroids with slow taper. Continue supportive care. Critical care time 30 minutes spent reviewing charts, reviewing labs, imaging, discussion with RN. 06/23/2021: Afebrile. On vent with FiO2 of 70, PEEP 10. Continue antibiotics for diffuse bilateral opacities. Continue steroids with slow taper to begin tomorrow. Continue supportive care. Critical care time 30 minutes spent reviewing charts, reviewing labs, imaging, discussion with RN. 06/24/2021: Afebrile. On vent with FiO2 60%, PEEP 9. Continue antibiotics. Today is day 10 of steroids; will begin Solu-Medrol taper tomorrow. S/p remdesivir. Continue supportive care. Critical care time 30 minutes spent reviewing charts, reviewing labs, imaging, discussion with RN. 06/25/2021: On vent with FiO2 65, PEEP 9. Afebrile. Completed 10 days of steroids; will begin Solu-Medrol taper today at 60 mg twice daily. Will provide 60 mg twice daily, then 60 mg daily tomorrow. After which time will observe off antibiotics. S/P remdesivir. Continue supportive care. Critical care time 30 minutes spent reviewing charts, reviewing labs, imaging, discussion with RN. 06/26/2021 No acute events overnight. Patient still intubated and sedated vent settings at 20/450/70/9. Increased insulin dose to 10 units twice daily. Solu-Medrol decreased to 40 mg daily. Continue with IV Lasix daily and as needed for of volume overload. Patient's chart, labs, images were reviewed and discussed with RN A total of 34 minutes of critical care time was spent in reviewing chart, labs, and images. Discussed with RN and SW. 06/27/21 No acute events overnight. Patient is intubated and sedated. Vent settings at assist control at saturating 97%. Vent settings set at 16/80/9. ABG at 7.4 /43/58/32. A total of 32 minutes of critical care time was spent in reviewing chart, labs, and images. Discussed with RN and KEVIN. 06/28/2021 No acute events overnight. Patient continues to be intubated and sedated. Saturating 90% on assist control with vent settings of 16/80/9. Better sugar control with adjusted insulin. Patient's chart, labs, images were reviewed and discussed with RN A total of 32 minutes of critical care time was spent in reviewing chart, labs, and images. Discussed with RN and SW. Vitals/I&O Vitals/I&O: Vital Signs Date Time Temp Pulse Resp B/P (MAP) Pulse Ox O2 Delivery O2 Flow Rate FiO2 06/28/21 11:00 86 16 113/56 (75) 94 Ventilator 06/28/21 08:00 98.3 98.3 06/27/21 20:56 40.0 I & O 06/27/21 06/27/21 06/28/21 15:00 23:00 07:00 Intake Total 300 ml 1723 ml 1387 ml Output Total 2125 ml 900 ml 775 ml Balance -1825 ml 823 ml 612 ml Physical Exam General: No acute distress, Other (Intubated and sedated) Heart: Regular rate, Normal S1, Normal S2 Abdomen: Normal bowel sounds, Soft Extremities: No clubbing, No edema, Normal pulses Skin: No rashes, No significant lesion Labs Labs: Laboratory Tests Test 06/27/21 18:16 06/28/21 00:05 06/28/21 07:57 06/28/21 11:08 Glucose (Fingerstick) 153 mg/dL (70-99) 141 mg/dL (70-99) 221 mg/dL (70-99) O2 Saturation 93 % (92-99) Arterial Blood pH 7.49 (7.35-7.45) Arterial Blood pCO2 at Patient Temp 43 mmHg (35-46) Arterial Blood pO2 at Patient Temp 67 mmHg (75-108) Arterial Blood HCO3 32 mmol/L (21-28) Arterial Blood Base Excess 7 mmol/L (-3-3) FiO2 80% vent Comment Review of Relevant I have reviewed the following items man (where applicable) has been applied. Justifications for Admission Other Justification Acute hypoxic respiratory failure and Covid pneumonia REENA MORA MD Jun 28, 2021 11:48
[2021-06-28] MEDS: MIDAZOLAM 100mg/100ml NS BAG 100 ML IV PRN (15:37)
--- NOTE | 2021-06-28 15:59 | NUR ---
SS following up with discharge planning. SS reviewed pt chart and discussed with pt RN. Pt is currently on the vent at 80%. COVID19 positive. Pt on IV Lasix. Pt on Versed, Fentanyl, and Propofol. Pt on tube feeds. Self pay. Med Assist following. Not stable. SS will continue to follow for discharge planning.
[2021-06-29] VITALS (24 sets, daily range): BP systolic 78–123; BP diastolic 35–66
[2021-06-29] MEDS: PROPOFOL 100 ML IV PRN ×5 (01:42→21:37)
[2021-06-29] MEDS: MIDAZOLAM 100mg/100ml NS BAG 100 ML IV PRN ×2 (03:43→23:07)
[2021-06-29] MEDS: INSULIN LISPRO 300 UNITS/3 ML VIAL. SQ SCH ×5 (05:40→23:58)
[2021-06-29 07:30] LABS: BASE EXCESS ABG 9 mmol/L (-3-3); HCO3 ABG 32 mmol/L (21-28); PCO2 ABG 40 mmHg (35-46); PO2 ABG 74 mmHg (75-108); SAT O2 ABG 95 % (92-99)
[2021-06-29 07:35] LABS: FIO2 ABG 80
[2021-06-29] MEDS: LISINOPRIL 5 MG TABLET. PO SCH (09:00)
[2021-06-29] MEDS: INSULIN GLARGINE SYRINGE. SQ SCH ×2 (09:25→21:36)
[2021-06-29] MEDS: PANTOPRAZOLE IV PUSH 40 MG VIAL. IVP SCH (09:26)
[2021-06-29] MEDS: ENOXAPARIN 40 MG/0.4 ML SYRINGE. SQ SCH ×2 (09:26→21:36)
[2021-06-29] MEDS: THIAMINE 100 MG TABLET. PO SCH (09:26)
[2021-06-29] MEDS: ASCORBIC ACID 1,000 MG TABLET PO SCH ×3 (09:27→21:36)
[2021-06-29] MEDS: GABAPENTIN 300 MG CAPSULE. PO SCH ×3 (09:27→21:35)
[2021-06-29] MEDS: ZINC SULFATE 220 MG CAPSULE. PO SCH (09:27)
[2021-06-29] MEDS: FUROSEMIDE 40 MG/4 ML VIAL. IVP SCH (09:28)
[2021-06-29 09:54] LABS: BASO # 0.1 x10^3/uL (0.0-0.2); BASO % 1 % (0-3); EOS # 0.3 x10^3/uL (0.0-0.7); EOS % 4 % (0-3); HEMATOCRIT 27.4 % (36.0-47.0); HEMOGLOBIN 8.8 g/dL (12.0-15.5); LYMPH # 1.3 x10^3/uL (1.0-4.8); LYMPH % 15 % (24-48); MEAN CORPUSCULAR HEMOGLOBIN 25 pg (25-35); MEAN CORPUSCULAR HGB CONC 32 g/dL (31-37); MEAN CORPUSCULAR VOLUME 77 fL (79-100); MONO # 0.3 x10^3/uL (0.0-1.1); MONO % 4 % (0-9); NEUT # 7.1 x10^3/uL (1.8-7.7); NEUT % 77 % (31-73); PLATELET COUNT 155 x10^3/uL (140-400); RED BLOOD COUNT 3.58 x10^6/uL (3.50-5.40); RED CELL DISTRIBUTION WIDTH 17.3 % (11.5-14.5); WHITE BLOOD COUNT 9.2 x10^3/uL (4.0-11.0)
[2021-06-29 10:18] LABS: CALCIUM 8.4 mg/dL (8.5-10.1); CREATININE 0.4 mg/dL (0.6-1.0); GFR 176.8; POTASSIUM 3.7 mmol/L (3.5-5.1)
--- NOTE | 2021-06-29 11:34 | PDOC ---
PULMONARY PROGRESS NOTES DATE: 06/29/21 TIME: 11:31 Subjective Patient remains on ventilatory support Afebrile Hypertension No overnight concerns from nursing Vitals Vital Signs Date Time Temp Pulse Resp B/P (MAP) Pulse Ox O2 Delivery O2 Flow Rate FiO2 06/29/21 09:00 62 83/38 06/29/21 08:00 Mechanical Ventilator 06/29/21 07:14 98 06/29/21 07:00 16 06/29/21 05:20 40.0 06/29/21 04:00 98.0 98.0 Comments Visual exam done due to COVID-19. Intubated sedated RRR no accessory muscle use abd Obese no skin rash. No leg edema. Labs Laboratory Tests Test 06/27/21 11:46 06/27/21 18:16 06/28/21 00:05 06/28/21 07:57 Glucose (Fingerstick) 99 mg/dL (70-99) 153 mg/dL (70-99) 141 mg/dL (70-99) O2 Saturation 93 % (92-99) Arterial Blood pH 7.49 (7.35-7.45) Arterial Blood pCO2 at Patient Temp 43 mmHg (35-46) Arterial Blood pO2 at Patient Temp 67 mmHg (75-108) Arterial Blood HCO3 32 mmol/L (21-28) Arterial Blood Base Excess 7 mmol/L (-3-3) FiO2 80% vent Test 06/28/21 11:08 06/28/21 17:23 06/29/21 00:23 06/29/21 05:39 Glucose (Fingerstick) 221 mg/dL (70-99) 170 mg/dL (70-99) 95 mg/dL (70-99) 116 mg/dL (70-99) Test 06/29/21 07:20 06/29/21 09:40 O2 Saturation 95 % (92-99) Arterial Blood pH 7.53 (7.35-7.45) Arterial Blood pCO2 at Patient Temp 40 mmHg (35-46) Arterial Blood pO2 at Patient Temp 74 mmHg (75-108) Arterial Blood HCO3 32 mmol/L (21-28) Arterial Blood Base Excess 9 mmol/L (-3-3) FiO2 80 White Blood Count 9.2 x10^3/uL (4.0-11.0) Red Blood Count 3.58 x10^6/uL (3.50-5.40) Hemoglobin 8.8 g/dL (12.0-15.5) Hematocrit 27.4 % (36.0-47.0) Mean Corpuscular Volume 77 fL (79-100) Mean Corpuscular Hemoglobin 25 pg (25-35) Mean Corpuscular Hemoglobin Concent 32 g/dL (31-37) Red Cell Distribution Width 17.3 % (11.5-14.5) Platelet Count 155 x10^3/uL (140-400) Neutrophils (%) (Auto) 77 % (31-73) Lymphocytes (%) (Auto) 15 % (24-48) Monocytes (%) (Auto) 4 % (0-9) Eosinophils (%) (Auto) 4 % (0-3) Basophils (%) (Auto) 1 % (0-3) Neutrophils # (Auto) 7.1 x10^3/uL (1.8-7.7) Lymphocytes # (Auto) 1.3 x10^3/uL (1.0-4.8) Monocytes # (Auto) 0.3 x10^3/uL (0.0-1.1) Eosinophils # (Auto) 0.3 x10^3/uL (0.0-0.7) Basophils # (Auto) 0.1 x10^3/uL (0.0-0.2) Sodium Level 141 mmol/L (136-145) Potassium Level 3.7 mmol/L (3.5-5.1) Chloride Level 106 mmol/L (98-107) Carbon Dioxide Level 33 mmol/L (21-32) Anion Gap 2 (6-14) Blood Urea Nitrogen 16 mg/dL (7-20) Creatinine 0.4 mg/dL (0.6-1.0) Estimated GFR (Cockcroft-Gault) 176.8 Glucose Level 86 mg/dL (70-99) Calcium Level 8.4 mg/dL (8.5-10.1) Triglycerides Level 150 mg/dL (0-150) Laboratory Tests Test 06/28/21 17:23 06/29/21 00:23 06/29/21 05:39 06/29/21 07:20 Glucose (Fingerstick) 170 mg/dL (70-99) 95 mg/dL (70-99) 116 mg/dL (70-99) O2 Saturation 95 % (92-99) Arterial Blood pH 7.53 (7.35-7.45) Arterial Blood pCO2 at Patient Temp 40 mmHg (35-46) Arterial Blood pO2 at Patient Temp 74 mmHg (75-108) Arterial Blood HCO3 32 mmol/L (21-28) Arterial Blood Base Excess 9 mmol/L (-3-3) FiO2 80 Test 8 09:40 White Blood Count 9.2 x10^3/uL (4.0-11.0) Red Blood Count 3.58 x10^6/uL (3.50-5.40) Hemoglobin 8.8 g/dL (12.0-15.5) Hematocrit 27.4 % (36.0-47.0) Mean Corpuscular Volume 77 fL (79-100) Mean Corpuscular Hemoglobin 25 pg (25-35) Mean Corpuscular Hemoglobin Concent 32 g/dL (31-37) Red Cell Distribution Width 17.3 % (11.5-14.5) Platelet Count 155 x10^3/uL (140-400) Neutrophils (%) (Auto) 77 % (31-73) Lymphocytes (%) (Auto) 15 % (24-48) Monocytes (%) (Auto) 4 % (0-9) Eosinophils (%) (Auto) 4 % (0-3) Basophils (%) (Auto) 1 % (0-3) Neutrophils # (Auto) 7.1 x10^3/uL (1.8-7.7) Lymphocytes # (Auto) 1.3 x10^3/uL (1.0-4.8) Monocytes # (Auto) 0.3 x10^3/uL (0.0-1.1) Eosinophils # (Auto) 0.3 x10^3/uL (0.0-0.7) Basophils # (Auto) 0.1 x10^3/uL (0.0-0.2) Sodium Level 141 mmol/L (136-145) Potassium Level 3.7 mmol/L (3.5-5.1) Chloride Level 106 mmol/L (98-107) Carbon Dioxide Level 33 mmol/L (21-32) Anion Gap 2 (6-14) Blood Urea Nitrogen 16 mg/dL (7-20) Creatinine 0.4 mg/dL (0.6-1.0) Estimated GFR (Cockcroft-Gault) 176.8 Glucose Level 86 mg/dL (70-99) Calcium Level 8.4 mg/dL (8.5-10.1) Triglycerides Level 150 mg/dL (0-150) Medications Active Scripts Medications Dose Route/Sig Max Daily Dose Days Date Category Cyclobenzaprine Hcl 10 Mg Tablet 10 Mg PO TID 06/15/21 Reported Meloxicam 15 Mg Tablet 15 Mg PO DAILY 06/15/21 Reported Fluticasone Propionate Nasal [place] (Fluticasone Propionate) 16 Gm [place].susp 1 [place] NS DAILY 06/15/21 Reported Loratadine 10 Mg Tablet 10 Mg PO DAILY 06/15/21 Reported Furosemide 20 Mg Tablet 20 Mg PO DAILY 06/15/21 Reported Gabapentin (Gabapentin) 300 Mg Capsule 300 Mg PO TID 06/15/21 Reported Gabapentin (Gabapentin) 300 Mg Capsule 300 Mg PO TID 06/15/21 Reported Lisinopril 5 Mg Tablet 1 Tab PO DAILY 06/15/21 Reported Metformin Hcl 500 Mg Tablet 500 Mg PO BIDWMEALS 06/15/21 Reported Ozempic (Semaglutide) 0.25 Mg/0.2 Ml Pen.injctr 0.25 Mg SQ WEEKLY 06/15/21 Reported Impression . 1. Acute hypoxic respiratory failure secondary to ARDS/COVID-19 infection, worsening intubated 06/19/[address] of chest secondary to COVID-19 infection/ARDS 3. Diabetes type 2 with hyperglycemia 4. Hypertension--- now hypotensive 5. Hyperlipdemia 6. Obesity Plan . Updated 06/29/21 Continue current vent support, currently pressure control mode of (37) 16//80%/9 Follow ABG/CXR-reduce rate to 14 today S/P remdesivir Continue zinc/vitamin C Give 500 cc NS bolus if not improved start vasopressor medications to keep MAP greater than 65 Continue tube feeding for nutritional support DVT/GI prophylaxis: Lovenox Discussed with RN and RT Full code Critical care time 30 minutes VAISHALI ESQUEDA APRN Jun 29, 2021 11:34
--- NOTE | 2021-06-29 12:41 | PDOC ---
[employer] PROGRESS NOTE Date of Service DOS: DATE: 06/29/21 TIME: 12:38 Chief Complaint Chief Complaint Acute hypoxic respiratory failure requiring BiPAP COVID-19 pneumonia Morbid obesity History of diabetes mellitus type 2 History of hypertension Severe malnutrition Plan: Continue insulin to 10 units twice daily and continue low intensity RISS Appreciate pulmonary recommendations for mechanical ventilation Continue IV thiamine and vitamin C IV Solu-Medrol 40 mg daily Titrate O2 supplementation to maintain O2 saturation greater than 92% Completed IV Remdesivir Lovenox for DVT prophylaxis Protonix while ventilated GI prophylaxis ADA diet Full code Discussed with RN and SW Disposition ICU management as above Surrogate decision maker is the undesignated at this time History of Present Illness History of Present Illness Patient is a transfer from [facility] [place] in [facility] 40-year-old female with past medical history of diabetes, hypertension, dyslipidemia and morbid obesity who complains of shortness of breath 1 week ago and went to urgent care and found out that she was positive for Covid. She came in at 5:00 in the morning at [facility] is very hypoxic and was found to be her oxygen saturation was 68% she was put on a nonrebreather 15 L and she was improved to 90 to 93%. Patient is [id number]. Patient is a poor historian. She does not know what kind of medication she takes for her medical history. 06/15/21 Patient seen and examined at bedside in the ICU. She was face time talking with family members. She was still on nonrebreather. Reports that she feels improved from yesterday. Otherwise no complaints. Pulmonary consulted. Plan of care discussed with bedside nurse. 06/16/21 Patient seen and examined at bedside. On Vapotherm doing well. Stable from yesterday. No major complaints. Pulmonary following. Plan of care discussed with bedside nurse. 06/17/21 Patient seen and examined at bedside. Remains on Vapotherm although O2 requirement decreasing. Continue current plan. Plan of care discussed bedside nurse. 06/18/21 Patient seen and examined at bedside. On 40 L Vapotherm and now requiring NRB in addition. Worsening oxygenation. Although leukocytosis persists since patient is afebrile and on broad-spectrum antibiotics suspect this is related to steroids. Remdesivir finishes today. Pulmonary following. Plan of care discussed with bedside nurse. 06/19/2021: Intubated overnight in ICU. Afebrile. Currently breathing FiO2 100%. Completed remdesivir. We will continue IV steroids and prophylactic antibiotics. 30 minutes critical care time spent reviewing charts, reviewing labs, reviewing imaging, and discussion with RN. 06/20/2021: Low-grade fever overnight (T-max 99.7 F). Remains on vent, FiO2 90%, PEEP 10. Continue treatment with IV steroids and prophylactic IV antibiotics. She has completed a course of remdesivir. Continue supportive care. Critical care time 30 minutes spent reviewing charts, reviewing labs, imaging, discussion with RN. 06/21/21: Afebrile. On vent with FiO2 80%, PEEP 10. Continue treatment with prophylactic antibiotics steroids total of 10 day course (steroid taper to begin 06/24). Completed course remdesivir. Continue supportive care. Critical care time 30 minutes spent reviewing charts, reviewing labs, imaging, discussion with RN. 06/22/2021: Afebrile. Remains on ventilator with FiO2 70%, PEEP 10. Completed remdesivir. Continue antibiotics, steroids with slow taper. Continue supportive care. Critical care time 30 minutes spent reviewing charts, reviewing labs, imaging, discussion with RN. 06/23/2021: Afebrile. On vent with FiO2 of 70, PEEP 10. Continue antibiotics for diffuse bilateral opacities. Continue steroids with slow taper to begin tomorrow. Continue supportive care. Critical care time 30 minutes spent reviewing charts, reviewing labs, imaging, discussion with RN. 06/24/2021: Afebrile. On vent with FiO2 60%, PEEP 9. Continue antibiotics. Today is day 10 of steroids; will begin Solu-Medrol taper tomorrow. S/p remdesivir. Continue supportive care. Critical care time 30 minutes spent reviewing charts, reviewing labs, imaging, discussion with RN. 06/25/2021: On vent with FiO2 65, PEEP 9. Afebrile. Completed 10 days of steroids; will begin Solu-Medrol taper today at 60 mg twice daily. Will provide 60 mg twice daily, then 60 mg daily tomorrow. After which time will observe off antibiotics. S/P remdesivir. Continue supportive care. Critical care time 30 minutes spent reviewing charts, reviewing labs, imaging, discussion with RN. 06/26/2021 No acute events overnight. Patient still intubated and sedated vent settings at 20/450/70/9. Increased insulin dose to 10 units twice daily. Solu-Medrol decreased to 40 mg daily. Continue with IV Lasix daily and as needed for of volume overload. Patient's chart, labs, images were reviewed and discussed with RN A total of 34 minutes of critical care time was spent in reviewing chart, labs, and images. Discussed with RN and SW. 06/27/21 No acute events overnight. Patient is intubated and sedated. Vent settings at assist control at saturating 97%. Vent settings set at 16/80/9. ABG at 7.4 8/43/58/32. A total of 32 minutes of critical care time was spent in reviewing chart, labs, and images. Discussed with RN and SW. 06/28/2021 No acute events overnight. Patient continues to be intubated and sedated. Saturating 90% on assist control with vent settings of 16/80/9. Better sugar control with adjusted insulin. Patient's chart, labs, images were reviewed and discussed with RN A total of 32 minutes of critical care time was spent in reviewing chart, labs, and images. Discussed with RN and SW. 06/29/2021 No acute events overnight patient saturating 98% on vent settings of 10/80/9. A total of 39 minutes of critical care time was spent in reviewing chart, labs, and images. Discussed with RN and KEVIN. Vitals/I&O Vitals/I&O: Vital Signs Date Time Temp Pulse Resp B/P (MAP) Pulse Ox O2 Delivery O2 Flow Rate FiO2 06/29/21 11:48 98 Ventilator 06/29/21 11:00 78 16 100/55 (70) 06/29/21 08:00 99.0 99.0 06/29/21 05:20 40.0 I & O 06/28/21 06/28/21 06/29/21 15:00 23:00 07:00 Intake Total 300 ml 1868 ml 1045 ml Output Total 3050 ml 725 ml 570 ml Balance -2750 ml 1143 ml 475 ml Physical Exam General: No acute distress, Other (Intubated and sedated) Heart: Regular rate, Normal S1, Normal S2 Abdomen: Normal bowel sounds, Soft Extremities: No clubbing, No edema, Normal pulses Skin: No rashes, No significant lesion Labs Labs: Laboratory Tests Test 06/28/21 17:23 06/29/21 00:23 06/29/21 05:39 06/29/21 07:20 Glucose (Fingerstick) 170 mg/dL (70-99) 95 mg/dL (70-99) 116 mg/dL (70-99) O2 Saturation 95 % (92-99) Arterial Blood pH 7.53 (7.35-7.45) Arterial Blood pCO2 at Patient Temp 40 mmHg (35-46) Arterial Blood pO2 at Patient Temp 74 mmHg (75-108) Arterial Blood HCO3 32 mmol/L (21-28) Arterial Blood Base Excess 9 mmol/L (-3-3) FiO2 80 Test 06/29/21 09:40 White Blood Count 9.2 x10^3/uL (4.0-11.0) Red Blood Count 3.58 x10^6/uL (3.50-5.40) Hemoglobin 8.8 g/dL (12.0-15.5) Hematocrit 27.4 % (36.0-47.0) Mean Corpuscular Volume 77 fL (79-100) Mean Corpuscular Hemoglobin 25 pg (25-35) Mean Corpuscular Hemoglobin Concent 32 g/dL (31-37) Red Cell Distribution Width 17.3 % (11.5-14.5) Platelet Count 155 x10^3/uL (140-400) Neutrophils (%) (Auto) 77 % (31-73) Lymphocytes (%) (Auto) 15 % (24-48) Monocytes (%) (Auto) 4 % (0-9) Eosinophils (%) (Auto) 4 % (0-3) Basophils (%) (Auto) 1 % (0-3) Neutrophils # (Auto) 7.1 x10^3/uL (1.8-7.7) Lymphocytes # (Auto) 1.3 x10^3/uL (1.0-4.8) Monocytes # (Auto) 0.3 x10^3/uL (0.0-1.1) Eosinophils # (Auto) 0.3 x10^3/uL (0.0-0.7) Basophils # (Auto) 0.1 x10^3/uL (0.0-0.2) Sodium Level 141 mmol/L (136-145) Potassium Level 3.7 mmol/L (3.5-5.1) Chloride Level 106 mmol/L (98-107) Carbon Dioxide Level 33 mmol/L (21-32) Anion Gap 2 (6-14) Blood Urea Nitrogen 16 mg/dL (7-20) Creatinine 0.4 mg/dL (0.6-1.0) Estimated GFR (Cockcroft-Gault) 176.8 Glucose Level 86 mg/dL (70-99) Calcium Level 8.4 mg/dL (8.5-10.1) Triglycerides Level 150 mg/dL (0-150) Comment Review of Relevant I have reviewed the following items man (where applicable) has been applied. Justifications for Admission Other Justification Acute hypoxic respiratory failure and Covid pneumonia REENA MORA MD Jun 29, 2021 12:41
[2021-06-29] MEDS: VECURONIUM BOLUS 10 MG VIAL. IV PRN (13:29)
[2021-06-30] VITALS (24 sets, daily range): BP systolic 82–142; BP diastolic 41–90
[2021-06-30] MEDS: VECURONIUM BOLUS 10 MG VIAL. IV PRN ×2 (03:56→07:44)
[2021-06-30 05:31] LABS: CALCIUM 8.3 mg/dL (8.5-10.1); CREATININE 0.4 mg/dL (0.6-1.0); GFR 176.8; POTASSIUM 3.8 mmol/L (3.5-5.1)
[2021-06-30 05:40] LABS: BASO # 0.1 x10^3/uL (0.0-0.2); BASO % 1 % (0-3); EOS # 0.3 x10^3/uL (0.0-0.7); EOS % 3 % (0-3); HEMATOCRIT 29.7 % (36.0-47.0); HEMOGLOBIN 9.6 g/dL (12.0-15.5); LYMPH # 1.2 x10^3/uL (1.0-4.8); LYMPH % 12 % (24-48); MEAN CORPUSCULAR HEMOGLOBIN 25 pg (25-35); MEAN CORPUSCULAR HGB CONC 32 g/dL (31-37); MEAN CORPUSCULAR VOLUME 76 fL (79-100); MONO # 0.5 x10^3/uL (0.0-1.1); MONO % 5 % (0-9); NEUT # 7.9 x10^3/uL (1.8-7.7); NEUT % 79 % (31-73); PLATELET COUNT 182 x10^3/uL (140-400); RED BLOOD COUNT 3.92 x10^6/uL (3.50-5.40); RED CELL DISTRIBUTION WIDTH 17.9 % (11.5-14.5)
[2021-06-30] MEDS: INSULIN LISPRO 300 UNITS/3 ML VIAL. SQ SCH ×3 (06:00→18:27)
[2021-06-30] MEDS: PROPOFOL 100 ML IV PRN ×3 (06:12→13:41)
[2021-06-30] MEDS: MIDAZOLAM 100mg/100ml NS BAG 100 ML IV PRN ×2 (07:31→13:57)
[2021-06-30] MEDS: ZINC SULFATE 220 MG CAPSULE. PO SCH (07:44)
[2021-06-30] MEDS: ASCORBIC ACID 1,000 MG TABLET PO SCH ×3 (07:44→20:03)
[2021-06-30] MEDS: ENOXAPARIN 40 MG/0.4 ML SYRINGE. SQ SCH ×2 (07:44→20:03)
[2021-06-30] MEDS: GABAPENTIN 300 MG CAPSULE. PO SCH ×3 (07:44→20:03)
[2021-06-30] MEDS: PANTOPRAZOLE IV PUSH 40 MG VIAL. IVP SCH (07:44)
[2021-06-30] MEDS: THIAMINE 100 MG TABLET. PO SCH (07:45)
[2021-06-30] MEDS: FUROSEMIDE 40 MG/4 ML VIAL. IVP SCH (07:45)
--- NOTE | 2021-06-30 08:08 | RAD ---
EXAM: Chest, single view. HISTORY: Respiratory failure. COMPARISON: 06/26/2021 FINDINGS: A frontal view of the chest is obtained. There is no endotracheal tube within the trachea. There is nasogastric tube within the stomach. There is a right PICC with the tip overlying the expect ed location of the superior right atrium. There has been no significant change in diffuse interstitia l infiltrate. No pleural effusion or pneumothorax is seen. There is a stable prominent cardiac silhou ette. IMPRESSION: 1. Stable diffuse infiltrate. 2. Stable support lines and tubes. Electronically signed by: Mercy Kyle MD (06/30/2021 8:05 AM) [id number]
[2021-06-30 08:49] LABS: BASE EXCESS ABG 7 mmol/L (-3-3); HCO3 ABG 33 mmol/L (21-28); PCO2 ABG 54 mmHg (35-46); PO2 ABG 64 mmHg (75-108); SAT O2 ABG 91 % (92-99)
[2021-06-30 08:52] LABS: FIO2 ABG 80
[2021-06-30] MEDS: LISINOPRIL 5 MG TABLET. PO SCH (09:00)
[2021-06-30] MEDS: INSULIN GLARGINE SYRINGE. SQ SCH ×2 (10:00→20:09)
[2021-06-30] MEDS ORDERED: NORCURON - VECURONIUM 50 MG in IV NORMAL SALINE 50ML 50 ML IV PRN (10:00)
--- NOTE | 2021-06-30 10:03 | PDOC ---
PULMONARY PROGRESS NOTES DATE: 06/30/21 TIME: 10:01 Subjective Patient remains on ventilatory support Afebrile No overnight concerns from nursing Ventilator change from pressure control to assist control mode. Vitals Vital Signs Date Time Temp Pulse Resp B/P (MAP) Pulse Ox O2 Delivery O2 Flow Rate FiO2 06/30/21 08:59 100 Ventilator 06/30/21 07:30 14 06/30/21 07:00 82 104/53 (70) 06/30/21 04:00 99.3 99.3 06/30/21 00:23 40.0 Comments Lungs: Clear Cardiovascular: S1 Abdomen: Soft, Other (Obese) Extremities: No Edema Skin: Warm Labs Laboratory Tests Test 06/28/21 11:08 06/28/21 17:23 06/29/21 00:23 06/29/21 05:39 Glucose (Fingerstick) 221 mg/dL (70-99) 170 mg/dL (70-99) 95 mg/dL (70-99) 116 mg/dL (70-99) Test 06/29/21 07:20 06/29/21 09:40 06/29/21 12:43 06/29/21 18:12 O2 Saturation 95 % (92-99) Arterial Blood pH 7.53 (7.35-7.45) Arterial Blood pCO2 at Patient Temp 40 mmHg (35-46) Arterial Blood pO2 at Patient Temp 74 mmHg (75-108) Arterial Blood HCO3 32 mmol/L (21-28) Arterial Blood Base Excess 9 mmol/L (-3-3) FiO2 80 White Blood Count 9.2 x10^3/uL (4.0-11.0) Red Blood Count 3.58 x10^6/uL (3.50-5.40) Hemoglobin 8.8 g/dL (12.0-15.5) Hematocrit 27.4 % (36.0-47.0) Mean Corpuscular Volume 77 fL (79-100) Mean Corpuscular Hemoglobin 25 pg (25-35) Mean Corpuscular Hemoglobin Concent 32 g/dL (31-37) Red Cell Distribution Width 17.3 % (11.5-14.5) Platelet Count 155 x10^3/uL (140-400) Neutrophils (%) (Auto) 77 % (31-73) Lymphocytes (%) (Auto) 15 % (24-48) Monocytes (%) (Auto) 4 % (0-9) Eosinophils (%) (Auto) 4 % (0-3) Basophils (%) (Auto) 1 % (0-3) Neutrophils # (Auto) 7.1 x10^3/uL (1.8-7.7) Lymphocytes # (Auto) 1.3 x10^3/uL (1.0-4.8) Monocytes # (Auto) 0.3 x10^3/uL (0.0-1.1) Eosinophils # (Auto) 0.3 x10^3/uL (0.0-0.7) Basophils # (Auto) 0.1 x10^3/uL (0.0-0.2) Sodium Level 141 mmol/L (136-145) Potassium Level 3.7 mmol/L (3.5-5.1) Chloride Level 106 mmol/L (98-107) Carbon Dioxide Level 33 mmol/L (21-32) Anion Gap 2 (6-14) Blood Urea Nitrogen 16 mg/dL (7-20) Creatinine 0.4 mg/dL (0.6-1.0) Estimated GFR (Cockcroft-Gault) 176.8 Glucose Level 86 mg/dL (70-99) Calcium Level 8.4 mg/dL (8.5-10.1) Triglycerides Level 150 mg/dL (0-150) Glucose (Fingerstick) 102 mg/dL (70-99) 103 mg/dL (70-99) Test 06/29/21 23:39 06/30/21 05:00 06/30/21 08:44 Glucose (Fingerstick) 80 mg/dL (70-99) White Blood Count 10.0 x10^3/uL (4.0-11.0) Red Blood Count 3.92 x10^6/uL (3.50-5.40) Hemoglobin 9.6 g/dL (12.0-15.5) Hematocrit 29.7 % (36.0-47.0) Mean Corpuscular Volume 76 fL (79-100) Mean Corpuscular Hemoglobin 25 pg (25-35) Mean Corpuscular Hemoglobin Concent 32 g/dL (31-37) Red Cell Distribution Width 17.9 % (11.5-14.5) Platelet Count 182 x10^3/uL (140-400) Neutrophils (%) (Auto) 79 % (31-73) Lymphocytes (%) (Auto) 12 % (24-48) Monocytes (%) (Auto) 5 % (0-9) Eosinophils (%) (Auto) 3 % (0-3) Basophils (%) (Auto) 1 % (0-3) Neutrophils # (Auto) 7.9 x10^3/uL (1.8-7.7) Lymphocytes # (Auto) 1.2 x10^3/uL (1.0-4.8) Monocytes # (Auto) 0.5 x10^3/uL (0.0-1.1) Eosinophils # (Auto) 0.3 x10^3/uL (0.0-0.7) Basophils # (Auto) 0.1 x10^3/uL (0.0-0.2) Sodium Level 142 mmol/L (136-145) Potassium Level 3.8 mmol/L (3.5-5.1) Chloride Level 104 mmol/L (98-107) Carbon Dioxide Level 32 mmol/L (21-32) Anion Gap 6 (6-14) Blood Urea Nitrogen 15 mg/dL (7-20) Creatinine 0.4 mg/dL (0.6-1.0) Estimated GFR (Cockcroft-Gault) 176.8 Glucose Level 90 mg/dL (70-99) Calcium Level 8.3 mg/dL (8.5-10.1) O2 Saturation 91 % (92-99) Arterial Blood pH 7.41 (7.35-7.45) Arterial Blood pCO2 at Patient Temp 54 mmHg (35-46) Arterial Blood pO2 at Patient Temp 64 mmHg (75-108) Arterial Blood HCO3 33 mmol/L (21-28) Arterial Blood Base Excess 7 mmol/L (-3-3) FiO2 80 Laboratory Tests Test 06/29/21 12:43 06/29/21 18:12 06/29/21 23:39 06/30/21 05:00 Glucose (Fingerstick) 102 mg/dL (70-99) 103 mg/dL (70-99) 80 mg/dL (70-99) White Blood Count 10.0 x10^3/uL (4.0-11.0) Red Blood Count 3.92 x10^6/uL (3.50-5.40) Hemoglobin 9.6 g/dL (12.0-15.5) Hematocrit 29.7 % (36.0-47.0) Mean Corpuscular Volume 76 fL (79-100) Mean Corpuscular Hemoglobin 25 pg (25-35) Mean Corpuscular Hemoglobin Concent 32 g/dL (31-37) Red Cell Distribution Width 17.9 % (11.5-14.5) Platelet Count 182 x10^3/uL (140-400) Neutrophils (%) (Auto) 79 % (31-73) Lymphocytes (%) (Auto) 12 % (24-48) Monocytes (%) (Auto) 5 % (0-9) Eosinophils (%) (Auto) 3 % (0-3) Basophils (%) (Auto) 1 % (0-3) Neutrophils # (Auto) 7.9 x10^3/uL (1.8-7.7) Lymphocytes # (Auto) 1.2 x10^3/uL (1.0-4.8) Monocytes # (Auto) 0.5 x10^3/uL (0.0-1.1) Eosinophils # (Auto) 0.3 x10^3/uL (0.0-0.7) Basophils # (Auto) 0.1 x10^3/uL (0.0-0.2) Sodium Level 142 mmol/L (136-145) Potassium Level 3.8 mmol/L (3.5-5.1) Chloride Level 104 mmol/L (98-107) Carbon Dioxide Level 32 mmol/L (21-32) Anion Gap 6 (6-14) Blood Urea Nitrogen 15 mg/dL (7-20) Creatinine 0.4 mg/dL (0.6-1.0) Estimated GFR (Cockcroft-Gault) 176.8 Glucose Level 90 mg/dL (70-99) Calcium Level 8.3 mg/dL (8.5-10.1) Test 06/30/21 08:44 O2 Saturation 91 % (92-99) Arterial Blood pH 7.41 (7.35-7.45) Arterial Blood pCO2 at Patient Temp 54 mmHg (35-46) Arterial Blood pO2 at Patient Temp 64 mmHg (75-108) Arterial Blood HCO3 33 mmol/L (21-28) Arterial Blood Base Excess 7 mmol/L (-3-3) FiO2 80 Medications Active Scripts Medications Dose Route/Sig Max Daily Dose Days Date Category Cyclobenzaprine Hcl 10 Mg Tablet 10 Mg PO TID 06/15/21 Reported Meloxicam 15 Mg Tablet 15 Mg PO DAILY 06/15/21 Reported Fluticasone Propionate Nasal Comins (Fluticasone Propionate) 16 Gm Comins.susp 1 Comins NS DAILY 06/15/21 Reported Loratadine 10 Mg Tablet 10 Mg PO DAILY 06/15/21 Reported Furosemide 20 Mg Tablet 20 Mg PO DAILY 06/15/21 Reported Gabapentin (Gabapentin) 300 Mg Capsule 300 Mg PO TID 06/15/21 Reported Gabapentin (Gabapentin) 300 Mg Capsule 300 Mg PO TID 06/15/21 Reported Lisinopril 5 Mg Tablet 1 Tab PO DAILY 06/15/21 Reported Metformin Hcl 500 Mg Tablet 500 Mg PO BIDWMEALS 06/15/21 Reported Ozempic (Semaglutide) 0.25 Mg/0.2 Ml Pen.injctr 0.25 Mg SQ WEEKLY 06/15/21 Reported Comments Chest x-ray reviewed 06/30/2021 Unchanged bilateral diffuse interstitial infiltrates Impression . 1. Acute hypoxic respiratory failure secondary to ARDS/COVID-19 infection, worsening intubated 06/19/[address] of chest secondary to COVID-19 infection/ARDS 3. Diabetes type 2 with hyperglycemia 4. Hypertension--- now hypotensive. Stable blood pressure today 5. Hyperlipdemia 6. Obesity Plan . Updated 06/30/21 Continue current vent support, patient is now on assist control mode. Oxygen requirement unchanged. Remains on 80% FiO2 and 9 of PEEP. Follow ABG/CXR-reviewed. Make changes as needed. S/P remdesivir Status post steroids treatment Continue zinc/vitamin C As needed NS bolus to keep MAP greater than 65 Continue tube feeding for nutritional support DVT/GI prophylaxis: Lovenox Discussed with RN and RT Full code Critical care time 30 minutes Updated 06/29/21 Continue current vent support, currently pressure control mode of (37) 16//80%/9 Follow ABG/CXR-reduce rate to 14 today S/P remdesivir Continue zinc/vitamin C Give 500 cc NS bolus if not improved start vasopressor medications to keep MAP greater than 65 Continue tube feeding for nutritional support DVT/GI prophylaxis: Lovenox Discussed with RN and RT Full code Critical care time 30 minutes NICOLETTE MORALES MD Jun 30, 2021 10:03
[2021-06-30] MEDS: DEXMEDETOMIDINE 400 MCG in IV NORMAL SALINE 100ML 96 ML IV PRN ×3 (10:32→21:27)
--- NOTE | 2021-06-30 12:28 | PDOC ---
[employer] PROGRESS NOTE Date of Service DOS: DATE: 06/30/21 TIME: 12:23 Chief Complaint Chief Complaint Acute hypoxic respiratory failure requiring BiPAP COVID-19 pneumonia Morbid obesity History of diabetes mellitus type 2 History of hypertension Severe malnutrition Plan: Continue insulin to 10 units twice daily and continue low intensity RISS Appreciate pulmonary recommendations for mechanical ventilation Continue IV thiamine and vitamin C IV Solu-Medrol 40 mg daily Titrate O2 supplementation to maintain O2 saturation greater than 92% Completed IV Remdesivir Lovenox for DVT prophylaxis Protonix while ventilated GI prophylaxis ADA diet Full code Discussed with RN and SW Disposition ICU management as above Surrogate decision maker is the undesignated at this time History of Present Illness History of Present Illness Patient is a transfer from [facility] in [facility] 40-year-old female with past medical history of diabetes, hypertension, dyslipidemia and morbid obesity who complains of shortness of breath 1 week ago and went to urgent care and found out that she was positive for Covid. She came in at 5:00 in the morning at [facility] is very hypoxic and was found to be her oxygen saturation was 68% she was put on a nonrebreather 15 L and she was improved to 90 to 93%. Patient is [id number]. Patient is a poor historian. She does not know what kind of medication she takes for her medical history. 06/15/21 Patient seen and examined at bedside in the ICU. She was face time talking with family members. She was still on nonrebreather. Reports that she feels improved from yesterday. Otherwise no complaints. Pulmonary consulted. Plan of care discussed with bedside nurse. 06/16/21 Patient seen and examined at bedside. On Vapotherm doing well. Stable from yesterday. No major complaints. Pulmonary following. Plan of care discussed with bedside nurse. 06/17/21 Patient seen and examined at bedside. Remains on Vapotherm although O2 requirement decreasing. Continue current plan. Plan of care discussed bedside nurse. 06/18/21 Patient seen and examined at bedside. On 40 L Vapotherm and now requiring NRB in addition. Worsening oxygenation. Although leukocytosis persists since patient is afebrile and on broad-spectrum antibiotics suspect this is related to steroids. Remdesivir finishes today. Pulmonary following. Plan of care discussed with bedside nurse. 06/19/2021: Intubated overnight in ICU. Afebrile. Currently breathing FiO2 100%. Completed remdesivir. We will continue IV steroids and prophylactic antibiotics. 30 minutes critical care time spent reviewing charts, reviewing labs, reviewing imaging, and discussion with RN. 06/20/2021: Low-grade fever overnight (T-max 99.7 F). Remains on vent, FiO2 90%, PEEP 10. Continue treatment with IV steroids and prophylactic IV antibiotics. She has completed a course of remdesivir. Continue supportive care. Critical care time 30 minutes spent reviewing charts, reviewing labs, imaging, discussion with RN. 06/21/21: Afebrile. On vent with FiO2 80%, PEEP 10. Continue treatment with prophylactic antibiotics steroids total of 10 day course (steroid taper to begin 06/24). Completed course remdesivir. Continue supportive care. Critical care time 30 minutes spent reviewing charts, reviewing labs, imaging, discussion with RN. 06/22/2021: Afebrile. Remains on ventilator with FiO2 70%, PEEP 10. Completed remdesivir. Continue antibiotics, steroids with slow taper. Continue supportive care. Critical care time 30 minutes spent reviewing charts, reviewing labs, imaging, discussion with RN. 06/23/2021: Afebrile. On vent with FiO2 of 70, PEEP 10. Continue antibiotics for diffuse bilateral opacities. Continue steroids with slow taper to begin tomorrow. Continue supportive care. Critical care time 30 minutes spent reviewing charts, reviewing labs, imaging, discussion with RN. 06/24/2021: Afebrile. On vent with FiO2 60%, PEEP 9. Continue antibiotics. Today is day 10 of steroids; will begin Solu-Medrol taper tomorrow. S/p remdesivir. Continue supportive care. Critical care time 30 minutes spent reviewing charts, reviewing labs, imaging, discussion with RN. 06/25/2021: On vent with FiO2 65, PEEP 9. Afebrile. Completed 10 days of steroids; will begin Solu-Medrol taper today at 60 mg twice daily. Will provide 60 mg twice daily, then 60 mg daily tomorrow. After which time will observe off antibiotics. S/P remdesivir. Continue supportive care. Critical care time 30 minutes spent reviewing charts, reviewing labs, imaging, discussion with RN. 06/26/2021 No acute events overnight. Patient still intubated and sedated vent settings at 20/450/70/9. Increased insulin dose to 10 units twice daily. Solu-Medrol decreased to 40 mg daily. Continue with IV Lasix daily and as needed for of volume overload. Patient's chart, labs, images were reviewed and discussed with RN A total of 34 minutes of critical care time was spent in reviewing chart, labs, and images. Discussed with RN and KEVIN. 06/27/21 No acute events overnight. Patient is intubated and sedated. Vent settings at assist control at saturating 97%. Vent settings set at 16/80/9. ABG at 7.4 8/43/58/32. A total of 32 minutes of critical care time was spent in reviewing chart, labs, and images. Discussed with RN and KEVIN. 06/28/2021 No acute events overnight. Patient continues to be intubated and sedated. Saturating 90% on assist control with vent settings of 16/80/9. Better sugar control with adjusted insulin. Patient's chart, labs, images were reviewed and discussed with RN A total of 32 minutes of critical care time was spent in reviewing chart, labs, and images. Discussed with RN and KEVIN. 06/29/2021 No acute events overnight patient saturating 98% on vent settings of 10/80/9. A total of 39 minutes of critical care time was spent in reviewing chart, labs, and images. Discussed with RN and KEVIN. 06/30/2021 No acute events overnight. Patient did have hypotensive episode during the day which required a 500 NS bolus. May repeat as needed per pulmonology. Possibly needing vasopressors but will continue to observe at this time. Currently saturating 98% on vent settings of 14 pressure support/80/9. A total of 32 minutes of critical care time was spent in reviewing chart, labs, and images. Discussed with RN and KEVIN. Vitals/I&O Vitals/I&O: Vital Signs Date Time Temp Pulse Resp B/P (MAP) Pulse Ox O2 Delivery O2 Flow Rate FiO2 06/30/21 11:25 100 Ventilator 06/30/21 11:00 71 13 93/54 (67) 06/30/21 08:00 101.2 101.2 06/30/21 08:00 40.0 I & O 06/29/21 06/29/21 06/30/21 15:00 23:00 07:00 Intake Total 380 ml 1333.4 ml 919 ml Output Total 900 ml 450 ml 850 ml Balance -520 ml 883.4 ml 69 ml Physical Exam General: No acute distress, Other (Intubated and sedated) Heart: Regular rate, Normal S1, Normal S2 Lungs: Clear Abdomen: Normal bowel sounds, Soft Extremities: No clubbing, No edema, Normal pulses Skin: No rashes, No significant lesion Labs Labs: Laboratory Tests Test 06/29/21 12:43 06/29/21 18:12 06/29/21 23:39 06/30/21 05:00 Glucose (Fingerstick) 102 mg/dL (70-99) 103 mg/dL (70-99) 80 mg/dL (70-99) White Blood Count 10.0 x10^3/uL (4.0-11.0) Red Blood Count 3.92 x10^6/uL (3.50-5.40) Hemoglobin 9.6 g/dL (12.0-15.5) Hematocrit 29.7 % (36.0-47.0) Mean Corpuscular Volume 76 fL (79-100) Mean Corpuscular Hemoglobin 25 pg (25-35) Mean Corpuscular Hemoglobin Concent 32 g/dL (31-37) Red Cell Distribution Width 17.9 % (11.5-14.5) Platelet Count 182 x10^3/uL (140-400) Neutrophils (%) (Auto) 79 % (31-73) Lymphocytes (%) (Auto) 12 % (24-48) Monocytes (%) (Auto) 5 % (0-9) Eosinophils (%) (Auto) 3 % (0-3) Basophils (%) (Auto) 1 % (0-3) Neutrophils # (Auto) 7.9 x10^3/uL (1.8-7.7) Lymphocytes # (Auto) 1.2 x10^3/uL (1.0-4.8) Monocytes # (Auto) 0.5 x10^3/uL (0.0-1.1) Eosinophils # (Auto) 0.3 x10^3/uL (0.0-0.7) Basophils # (Auto) 0.1 x10^3/uL (0.0-0.2) Sodium Level 142 mmol/L (136-145) Potassium Level 3.8 mmol/L (3.5-5.1) Chloride Level 104 mmol/L (98-107) Carbon Dioxide Level 32 mmol/L (21-32) Anion Gap 6 (6-14) Blood Urea Nitrogen 15 mg/dL (7-20) Creatinine 0.4 mg/dL (0.6-1.0) Estimated GFR (Cockcroft-Gault) 176.8 Glucose Level 90 mg/dL (70-99) Calcium Level 8.3 mg/dL (8.5-10.1) Test 06/30/21 08:44 06/30/21 11:18 O2 Saturation 91 % (92-99) Arterial Blood pH 7.41 (7.35-7.45) Arterial Blood pCO2 at Patient Temp 54 mmHg (35-46) Arterial Blood pO2 at Patient Temp 64 mmHg (75-108) Arterial Blood HCO3 33 mmol/L (21-28) Arterial Blood Base Excess 7 mmol/L (-3-3) FiO2 80 Glucose (Fingerstick) 108 mg/dL (70-99) Comment Review of Relevant I have reviewed the following items man (where applicable) has been applied. Medications: Current Medications Medications (Trade) Dose Ordered Sig/Jun Route PRN Reason Start Time Stop Time Status Last Admin Dose Admin Insulin Glargine (Lantus Syringe) 5 unit BID SQ 06/29/21 21:00 06/30/21 10:00 Justifications for Admission Other Justification Acute hypoxic respiratory failure and Covid pneumonia REENA MORA MD Jun 30, 2021 12:28
[2021-06-30] MEDS: ACETAMINOPHEN 325 MG TABLET. PO PRN (13:40)
[2021-07-01] VITALS (24 sets, daily range): BP systolic 80–121; BP diastolic 42–69
[2021-07-01] MEDS: PROPOFOL 100 ML IV PRN ×3 (00:41→13:09)
[2021-07-01] MEDS: VECURONIUM BOLUS 10 MG VIAL. IV PRN ×2 (04:09→10:40)
[2021-07-01] MEDS: DEXMEDETOMIDINE 400 MCG in IV NORMAL SALINE 100ML 96 ML IV PRN ×2 (04:15→13:26)
[2021-07-01] MEDS: MIDAZOLAM 100mg/100ml NS BAG 100 ML IV PRN ×2 (04:17→13:03)
[2021-07-01] MEDS: INSULIN LISPRO 300 UNITS/3 ML VIAL. SQ SCH ×4 (06:00→17:40)
--- NOTE | 2021-07-01 06:56 | PDOC ---
PULMONARY PROGRESS NOTES DATE: 07/01/21 TIME: 06:51 Subjective Patient remains on ventilatory support peep 9 fio2 80%sedated on versed prop fentanyl small ett secretion on vec prn had one dose last night Afebrile assist control mode. Vitals Vital Signs Date Time Temp Pulse Resp B/P (MAP) Pulse Ox O2 Delivery O2 Flow Rate FiO2 07/01/21 06:00 70 14 96/53 (67) 100 Ventilator 07/01/21 04:00 97.8 97.8 06/30/21 13:56 40.0 Comments ros unable to obtain on vent sedated HEENT: Other (nc at perrl orally intubated nose clear neck no lad no thyromegaly) Lungs: Crackles Cardiovascular: S1 Abdomen: Soft, Other (Obese) Extremities: No Edema Skin: Warm Labs Laboratory Tests Test 06/29/21 07:20 06/29/21 09:40 06/29/21 12:43 06/29/21 18:12 O2 Saturation 95 % (92-99) Arterial Blood pH 7.53 (7.35-7.45) Arterial Blood pCO2 at Patient Temp 40 mmHg (35-46) Arterial Blood pO2 at Patient Temp 74 mmHg (75-108) Arterial Blood HCO3 32 mmol/L (21-28) Arterial Blood Base Excess 9 mmol/L (-3-3) FiO2 80 White Blood Count 9.2 x10^3/uL (4.0-11.0) Red Blood Count 3.58 x10^6/uL (3.50-5.40) Hemoglobin 8.8 g/dL (12.0-15.5) Hematocrit 27.4 % (36.0-47.0) Mean Corpuscular Volume 77 fL (79-100) Mean Corpuscular Hemoglobin 25 pg (25-35) Mean Corpuscular Hemoglobin Concent 32 g/dL (31-37) Red Cell Distribution Width 17.3 % (11.5-14.5) Platelet Count 155 x10^3/uL (140-400) Neutrophils (%) (Auto) 77 % (31-73) Lymphocytes (%) (Auto) 15 % (24-48) Monocytes (%) (Auto) 4 % (0-9) Eosinophils (%) (Auto) 4 % (0-3) Basophils (%) (Auto) 1 % (0-3) Neutrophils # (Auto) 7.1 x10^3/uL (1.8-7.7) Lymphocytes # (Auto) 1.3 x10^3/uL (1.0-4.8) Monocytes # (Auto) 0.3 x10^3/uL (0.0-1.1) Eosinophils # (Auto) 0.3 x10^3/uL (0.0-0.7) Basophils # (Auto) 0.1 x10^3/uL (0.0-0.2) Sodium Level 141 mmol/L (136-145) Potassium Level 3.7 mmol/L (3.5-5.1) Chloride Level 106 mmol/L (98-107) Carbon Dioxide Level 33 mmol/L (21-32) Anion Gap 2 (6-14) Blood Urea Nitrogen 16 mg/dL (7-20) Creatinine 0.4 mg/dL (0.6-1.0) Estimated GFR (Cockcroft-Gault) 176.8 Glucose Level 86 mg/dL (70-99) Calcium Level 8.4 mg/dL (8.5-10.1) Triglycerides Level 150 mg/dL (0-150) Glucose (Fingerstick) 102 mg/dL (70-99) 103 mg/dL (70-99) Test 06/29/21 23:39 06/30/21 05:00 06/30/21 08:44 06/30/21 11:18 Glucose (Fingerstick) 80 mg/dL (70-99) 108 mg/dL (70-99) White Blood Count 10.0 x10^3/uL (4.0-11.0) Red Blood Count 3.92 x10^6/uL (3.50-5.40) Hemoglobin 9.6 g/dL (12.0-15.5) Hematocrit 29.7 % (36.0-47.0) Mean Corpuscular Volume 76 fL (79-100) Mean Corpuscular Hemoglobin 25 pg (25-35) Mean Corpuscular Hemoglobin Concent 32 g/dL (31-37) Red Cell Distribution Width 17.9 % (11.5-14.5) Platelet Count 182 x10^3/uL (140-400) Neutrophils (%) (Auto) 79 % (31-73) Lymphocytes (%) (Auto) 12 % (24-48) Monocytes (%) (Auto) 5 % (0-9) Eosinophils (%) (Auto) 3 % (0-3) Basophils (%) (Auto) 1 % (0-3) Neutrophils # (Auto) 7.9 x10^3/uL (1.8-7.7) Lymphocytes # (Auto) 1.2 x10^3/uL (1.0-4.8) Monocytes # (Auto) 0.5 x10^3/uL (0.0-1.1) Eosinophils # (Auto) 0.3 x10^3/uL (0.0-0.7) Basophils # (Auto) 0.1 x10^3/uL (0.0-0.2) Sodium Level 142 mmol/L (136-145) Potassium Level 3.8 mmol/L (3.5-5.1) Chloride Level 104 mmol/L (98-107) Carbon Dioxide Level 32 mmol/L (21-32) Anion Gap 6 (6-14) Blood Urea Nitrogen 15 mg/dL (7-20) Creatinine 0.4 mg/dL (0.6-1.0) Estimated GFR (Cockcroft-Gault) 176.8 Glucose Level 90 mg/dL (70-99) Calcium Level 8.3 mg/dL (8.5-10.1) O2 Saturation 91 % (92-99) Arterial Blood pH 7.41 (7.35-7.45) Arterial Blood pCO2 at Patient Temp 54 mmHg (35-46) Arterial Blood pO2 at Patient Temp 64 mmHg (75-108) Arterial Blood HCO3 33 mmol/L (21-28) Arterial Blood Base Excess 7 mmol/L (-3-3) FiO2 80 Test 06/30/21 16:57 06/30/21 20:07 07/01/21 00:15 07/01/21 06:07 Glucose (Fingerstick) 155 mg/dL (70-99) 122 mg/dL (70-99) 115 mg/dL (70-99) 124 mg/dL (70-99) Laboratory Tests Test 06/30/21 08:44 06/30/21 11:18 06/30/21 16:57 06/30/21 20:07 O2 Saturation 91 % (92-99) Arterial Blood pH 7.41 (7.35-7.45) Arterial Blood pCO2 at Patient Temp 54 mmHg (35-46) Arterial Blood pO2 at Patient Temp 64 mmHg (75-108) Arterial Blood HCO3 33 mmol/L (21-28) Arterial Blood Base Excess 7 mmol/L (-3-3) FiO2 80 Glucose (Fingerstick) 108 mg/dL (70-99) 155 mg/dL (70-99) 122 mg/dL (70-99) Test 07/01/21 00:15 07/01/21 06:07 Glucose (Fingerstick) 115 mg/dL (70-99) 124 mg/dL (70-99) Medications Active Scripts Medications Dose Route/Sig Max Daily Dose Days Date Category Cyclobenzaprine Hcl 10 Mg Tablet 10 Mg PO TID 06/15/21 Reported Meloxicam 15 Mg Tablet 15 Mg PO DAILY 06/15/21 Reported Fluticasone Propionate Nasal [place]agh (Fluticasone Propionate) 16 Gm Darragh.susp 1 [place]agh NS DAILY 06/15/21 Reported Loratadine 10 Mg Tablet 10 Mg PO DAILY 06/15/21 Reported Furosemide 20 Mg Tablet 20 Mg PO DAILY 06/15/21 Reported Gabapentin (Gabapentin) 300 Mg Capsule 300 Mg PO TID 06/15/21 Reported Gabapentin (Gabapentin) 300 Mg Capsule 300 Mg PO TID 06/15/21 Reported Lisinopril 5 Mg Tablet 1 Tab PO DAILY 06/15/21 Reported Metformin Hcl 500 Mg Tablet 500 Mg PO BIDWMEALS 06/15/21 Reported Ozempic (Semaglutide) 0.25 Mg/0.2 Ml Pen.injctr 0.25 Mg SQ WEEKLY 06/15/21 Reported Comments Chest x-ray reviewed 06/30/2021 Unchanged bilateral diffuse interstitial infiltrates Impression . 1. Acute hypoxic respiratory failure secondary to ARDS/COVID-19 infection, worsening intubated 06/19/[address] of chest secondary to COVID-19 infection/ARDS 3. Diabetes type 2 with hyperglycemia 4. Hypertension--- now hypotensive. Stable blood pressure today 5. Hyperlipdemia 6. Obesity Plan . Updated 07/01/21 Continue current vent support, setting reviewed assist control mode. Remains on 80% FiO2 and 9 of PEEP. titrate peep fio2 as tolerated Follow ABG/CXR-reviewed. Make changes as needed. S/P remdesivir Status post steroids treatment Continue zinc/vitamin C As needed NS bolus to keep MAP greater than 65 Continue tube feeding for nutritional support DVT/GI prophylaxis: Lovenox Discussed with RN and RT Full code Updated 06/30/21 Continue current vent support, patient is now on assist control mode. Oxygen requirement unchanged. Remains on 80% FiO2 and 9 of PEEP. Follow ABG/CXR-reviewed. Make changes as needed. S/P remdesivir Status post steroids treatment Continue zinc/vitamin C As needed NS bolus to keep MAP greater than 65 Continue tube feeding for nutritional support DVT/GI prophylaxis: Lovenox Discussed with RN and RT Full code Critical care time 30 minutes Updated 06/29/21 Continue current vent support, currently pressure control mode of (37) 16/37/80%/9 Follow ABG/CXR-reduce rate to 14 today S/P remdesivir Continue zinc/vitamin C Give 500 cc NS bolus if not improved start vasopressor medications to keep MAP greater than 65 Continue tube feeding for nutritional support DVT/GI prophylaxis: Lovenox Discussed with RN and RT Full code Critical care time 30 minutes ALANNAH CARTER MD Jul 01, 2021 06:56
[2021-07-01 07:58] LABS: BASE EXCESS ABG 4 mmol/L (-3-3); HCO3 ABG 29 mmol/L (21-28); PCO2 ABG 44 mmHg (35-46); PO2 ABG 59 mmHg (75-108); SAT O2 ABG 90 % (92-99)
[2021-07-01] MEDS: FUROSEMIDE 40 MG/4 ML VIAL. IVP SCH (08:08)
[2021-07-01] MEDS: ZINC SULFATE 220 MG CAPSULE. PO SCH (08:08)
[2021-07-01] MEDS: THIAMINE 100 MG TABLET. PO SCH (08:08)
[2021-07-01] MEDS: ENOXAPARIN 40 MG/0.4 ML SYRINGE. SQ SCH ×2 (08:08→20:01)
[2021-07-01] MEDS: PANTOPRAZOLE IV PUSH 40 MG VIAL. IVP SCH (08:08)
[2021-07-01] MEDS: GABAPENTIN 300 MG CAPSULE. PO SCH ×3 (08:09→20:00)
[2021-07-01] MEDS: LISINOPRIL 5 MG TABLET. PO SCH (08:09)
[2021-07-01] MEDS: ASCORBIC ACID 1,000 MG TABLET PO SCH ×3 (08:09→20:00)
[2021-07-01 09:02] LABS: FIO2 ABG 80/VENT
[2021-07-01] MEDS: NORCURON - VECURONIUM 50 MG in IV NORMAL SALINE 50ML 50 ML IV PRN ×3 (10:40→21:04)
[2021-07-01] MEDS: INSULIN GLARGINE SYRINGE. SQ SCH ×2 (10:40→20:05)
--- NOTE | 2021-07-01 12:50 | PDOC ---
[employer] PROGRESS NOTE Date of Service DOS: DATE: 07/01/21 TIME: 12:48 Chief Complaint Chief Complaint Acute hypoxic respiratory failure requiring BiPAP COVID-19 pneumonia Morbid obesity History of diabetes mellitus type 2 History of hypertension Severe malnutrition Plan: Continue insulin to 10 units twice daily and continue low intensity RISS Appreciate pulmonary recommendations for mechanical ventilation Continue IV thiamine and vitamin C IV Solu-Medrol 40 mg daily Titrate O2 supplementation to maintain O2 saturation greater than 92% Completed IV Remdesivir Lovenox for DVT prophylaxis Protonix while ventilated GI prophylaxis ADA diet Full code Discussed with RN and SW Disposition ICU management as above Surrogate decision maker is the undesignated at this time History of Present Illness History of Present Illness Patient is a transfer from [facility] in [facility] 40-year-old female with past medical history of diabetes, hypertension, dyslipidemia and morbid obesity who complains of shortness of breath 1 week ago and went to urgent care and found out that she was positive for Covid. She came in at 5:00 in the morning at [facility] is very hypoxic and was found to be her oxygen saturation was 68% she was put on a nonrebreather 15 L and she was improved to 90 to 93%. Patient is [id number]. Patient is a poor historian. She does not know what kind of medication she takes for her medical history. 06/15/21 Patient seen and examined at bedside in the ICU. She was face time talking with family members. She was still on nonrebreather. Reports that she feels improved from yesterday. Otherwise no complaints. Pulmonary consulted. Plan of care discussed with bedside nurse. 06/16/21 Patient seen and examined at bedside. On Vapotherm doing well. Stable from yesterday. No major complaints. Pulmonary following. Plan of care discussed with bedside nurse. 06/17/21 Patient seen and examined at bedside. Remains on Vapotherm although O2 requirement decreasing. Continue current plan. Plan of care discussed bedside nurse. 06/18/21 Patient seen and examined at bedside. On 40 L Vapotherm and now requiring NRB in addition. Worsening oxygenation. Although leukocytosis persists since patient is afebrile and on broad-spectrum antibiotics suspect this is related to steroids. Remdesivir finishes today. Pulmonary following. Plan of care discussed with bedside nurse. 06/19/2021: Intubated overnight in ICU. Afebrile. Currently breathing FiO2 100%. Completed remdesivir. We will continue IV steroids and prophylactic antibiotics. 30 minutes critical care time spent reviewing charts, reviewing labs, reviewing imaging, and discussion with RN. 06/20/2021: Low-grade fever overnight (T-max 99.7 F). Remains on vent, FiO2 90%, PEEP 10. Continue treatment with IV steroids and prophylactic IV antibiotics. She has completed a course of remdesivir. Continue supportive care. Critical care time 30 minutes spent reviewing charts, reviewing labs, imaging, discussion with RN. 06/21/21: Afebrile. On vent with FiO2 80%, PEEP 10. Continue treatment with prophylactic antibiotics steroids total of 10 day course (steroid taper to begin 06/24). Completed course remdesivir. Continue supportive care. Critical care time 30 minutes spent reviewing charts, reviewing labs, imaging, discussion with RN. 06/22/2021: Afebrile. Remains on ventilator with FiO2 70%, PEEP 10. Completed remdesivir. Continue antibiotics, steroids with slow taper. Continue supportive care. Critical care time 30 minutes spent reviewing charts, reviewing labs, imaging, discussion with RN. 06/23/2021: Afebrile. On vent with FiO2 of 70, PEEP 10. Continue antibiotics for diffuse bilateral opacities. Continue steroids with slow taper to begin tomorrow. Continue supportive care. Critical care time 30 minutes spent reviewing charts, reviewing labs, imaging, discussion with RN. 06/24/2021: Afebrile. On vent with FiO2 60%, PEEP 9. Continue antibiotics. Today is day 10 of steroids; will begin Solu-Medrol taper tomorrow. S/p remdesivir. Continue supportive care. Critical care time 30 minutes spent reviewing charts, reviewing labs, imaging, discussion with RN. 06/25/2021: On vent with FiO2 65, PEEP 9. Afebrile. Completed 10 days of steroids; will begin Solu-Medrol taper today at 60 mg twice daily. Will provide 60 mg twice daily, then 60 mg daily tomorrow. After which time will observe off antibiotics. S/P remdesivir. Continue supportive care. Critical care time 30 minutes spent reviewing charts, reviewing labs, imaging, discussion with RN. 06/26/2021 No acute events overnight. Patient still intubated and sedated vent settings at 20/450/70/9. Increased insulin dose to 10 units twice daily. Solu-Medrol decreased to 40 mg daily. Continue with IV Lasix daily and as needed for of volume overload. Patient's chart, labs, images were reviewed and discussed with RN A total of 34 minutes of critical care time was spent in reviewing chart, labs, and images. Discussed with RN and KEVIN. 06/27/21 No acute events overnight. Patient is intubated and sedated. Vent settings at assist control at saturating 97%. Vent settings set at 16/80/9. ABG at 7.4 8/43/58/32. A total of 32 minutes of critical care time was spent in reviewing chart, labs, and images. Discussed with RN and KEVIN. 06/28/2021 No acute events overnight. Patient continues to be intubated and sedated. Saturating 90% on assist control with vent settings of 16/80/9. Better sugar control with adjusted insulin. Patient's chart, labs, images were reviewed and discussed with RN A total of 32 minutes of critical care time was spent in reviewing chart, labs, and images. Discussed with RN and KEVIN. 06/29/2021 No acute events overnight patient saturating 98% on vent settings of 10/80/9. A total of 39 minutes of critical care time was spent in reviewing chart, labs, and images. Discussed with RN and KEVIN. 06/30/2021 No acute events overnight. Patient did have hypotensive episode during the day which required a 500 NS bolus. May repeat as needed per pulmonology. Possibly needing vasopressors but will continue to observe at this time. Currently saturating 98% on vent settings of 14 pressure support/80/9. A total of 32 minutes of critical care time was spent in reviewing chart, labs, and images. Discussed with RN and KEVIN. 07/01/2021 No acute events overnight. Patient saturating 99% on vent settings of 14 pressure support/80/9. Urine output of 3.6 L in the last 24 hours. Adequate urine output. Patient's chart, labs, images were reviewed and discussed with RN A total of 34 minutes of critical care time was spent in reviewing chart, labs, and images. Discussed with RN and KEVIN. Vitals/I&O Vitals/I&O: Vital Signs Date Time Temp Pulse Resp B/P (MAP) Pulse Ox O2 Delivery O2 Flow Rate FiO2 07/01/21 12:00 Mechanical Ventilator 07/01/21 12:00 100.4 92 20 106/56 (73) 99 100.4 06/30/21 13:56 40.0 I & O 06/30/21 06/30/21 07/01/21 15:00 23:00 07:00 Intake Total 440 ml 2244.11 ml 1435.96 ml Output Total 1250 ml 1925 ml 500 ml Balance -810 ml 319.11 ml 935.96 ml Physical Exam General: No acute distress, Other (Intubated and sedated) Heart: Regular rate, Normal S1, Normal S2 Lungs: Crackles Abdomen: Normal bowel sounds, Soft Extremities: No clubbing, No edema, Normal pulses Skin: No rashes, No significant lesion Labs Labs: Laboratory Tests Test 06/30/21 16:57 06/30/21 20:07 07/01/21 00:15 07/01/21 06:07 Glucose (Fingerstick) 155 mg/dL (70-99) 122 mg/dL (70-99) 115 mg/dL (70-99) 124 mg/dL (70-99) Test 07/01/21 07:45 07/01/21 11:47 O2 Saturation 90 % (92-99) Arterial Blood pH 7.43 (7.35-7.45) Arterial Blood pCO2 at Patient Temp 44 mmHg (35-46) Arterial Blood pO2 at Patient Temp 59 mmHg (75-108) Arterial Blood HCO3 29 mmol/L (21-28) Arterial Blood Base Excess 4 mmol/L (-3-3) FiO2 80/vent Glucose (Fingerstick) 135 mg/dL (70-99) Comment Review of Relevant I have reviewed the following items man (where applicable) has been applied. Medications: Current Medications Medications (Trade) Dose Ordered Sig/Jun Route PRN Reason Start Time Stop Time Status Last Admin Dose Admin Vecuronium Mascot 50 mg/ Sodium Chloride 50 ml @ 6.163 mls/ hr CONT PRN IV SEE I/O RECORD 07/01/21 09:45 07/01/21 10:40 Justifications for Admission Other Justification Acute hypoxic respiratory failure and Covid pneumonia REENA MORA MD Jul 01, 2021 12:50
[2021-07-02] VITALS (24 sets, daily range): BP systolic 80–139; BP diastolic 34–69
[2021-07-02] MEDS: MIDAZOLAM 100mg/100ml NS BAG 100 ML IV PRN ×3 (00:47→21:51)
[2021-07-02] MEDS: DEXMEDETOMIDINE 400 MCG in IV NORMAL SALINE 100ML 96 ML IV PRN ×4 (03:48→23:15)
[2021-07-02] MEDS: PROPOFOL 100 ML IV PRN ×3 (04:54→23:27)
[2021-07-02] MEDS: NORCURON - VECURONIUM 50 MG in IV NORMAL SALINE 50ML 50 ML IV PRN ×3 (05:13→21:51)
[2021-07-02] MEDS: INSULIN LISPRO 300 UNITS/3 ML VIAL. SQ SCH ×4 (06:04→17:48)
--- NOTE | 2021-07-02 06:39 | PDOC ---
PULMONARY PROGRESS NOTES DATE: 07/02/21 TIME: 06:39 Subjective Patient remains on ventilatory support peep 9 fio2 80%sedated on versed prop fentanyl small ett secretion on vec gtt has vent dys synchrony Afebrile assist control mode. Vitals Vital Signs Date Time Temp Pulse Resp B/P (MAP) Pulse Ox O2 Delivery O2 Flow Rate FiO2 07/02/21 06:00 99.8 90 14 103/52 (69) 100 Ventilator 99.8 Comments ros unable to obtain on vent sedated HEENT: Other (nc at perrl orally intubated nose clear neck no lad no thyromegaly) Lungs: Crackles Cardiovascular: S1 Abdomen: Soft, Other (Obese) Extremities: No Edema Skin: Warm Labs Laboratory Tests Test 06/30/21 08:44 06/30/21 11:18 06/30/21 16:57 06/30/21 20:07 O2 Saturation 91 % (92-99) Arterial Blood pH 7.41 (7.35-7.45) Arterial Blood pCO2 at Patient Temp 54 mmHg (35-46) Arterial Blood pO2 at Patient Temp 64 mmHg (75-108) Arterial Blood HCO3 33 mmol/L (21-28) Arterial Blood Base Excess 7 mmol/L (-3-3) FiO2 80 Glucose (Fingerstick) 108 mg/dL (70-99) 155 mg/dL (70-99) 122 mg/dL (70-99) Test 07/01/21 00:15 07/01/21 06:07 07/01/21 07:45 07/01/21 11:47 Glucose (Fingerstick) 115 mg/dL (70-99) 124 mg/dL (70-99) 135 mg/dL (70-99) O2 Saturation 90 % (92-99) Arterial Blood pH 7.43 (7.35-7.45) Arterial Blood pCO2 at Patient Temp 44 mmHg (35-46) Arterial Blood pO2 at Patient Temp 59 mmHg (75-108) Arterial Blood HCO3 29 mmol/L (21-28) Arterial Blood Base Excess 4 mmol/L (-3-3) FiO2 80/vent Test 07/01/21 17:32 07/01/21 19:54 07/02/21 00:08 07/02/21 06:00 Glucose (Fingerstick) 193 mg/dL (70-99) 151 mg/dL (70-99) 134 mg/dL (70-99) 159 mg/dL (70-99) Laboratory Tests Test 07/01/21 07:45 07/01/21 11:47 07/01/21 17:32 07/01/21 19:54 O2 Saturation 90 % (92-99) Arterial Blood pH 7.43 (7.35-7.45) Arterial Blood pCO2 at Patient Temp 44 mmHg (35-46) Arterial Blood pO2 at Patient Temp 59 mmHg (75-108) Arterial Blood HCO3 29 mmol/L (21-28) Arterial Blood Base Excess 4 mmol/L (-3-3) FiO2 80/vent Glucose (Fingerstick) 135 mg/dL (70-99) 193 mg/dL (70-99) 151 mg/dL (70-99) Test 07/02/21 00:08 07/02/21 06:00 Glucose (Fingerstick) 134 mg/dL (70-99) 159 mg/dL (70-99) Medications Active Scripts Medications Dose Route/Sig Max Daily Dose Days Date Category Cyclobenzaprine Hcl 10 Mg Tablet 10 Mg PO TID 06/15/21 Reported Meloxicam 15 Mg Tablet 15 Mg PO DAILY 06/15/21 Reported Fluticasone Propionate Nasal [place] (Fluticasone Propionate) 16 Gm [place].susp 1 [place] NS DAILY 06/15/21 Reported Loratadine 10 Mg Tablet 10 Mg PO DAILY 06/15/21 Reported Furosemide 20 Mg Tablet 20 Mg PO DAILY 06/15/21 Reported Gabapentin (Gabapentin) 300 Mg Capsule 300 Mg PO TID 06/15/21 Reported Gabapentin (Gabapentin) 300 Mg Capsule 300 Mg PO TID 06/15/21 Reported Lisinopril 5 Mg Tablet 1 Tab PO DAILY 06/15/21 Reported Metformin Hcl 500 Mg Tablet 500 Mg PO BIDWMEALS 06/15/21 Reported Ozempic (Semaglutide) 0.25 Mg/0.2 Ml Pen.injctr 0.25 Mg SQ WEEKLY 06/15/21 Reported Comments Chest x-ray reviewed 06/30/2021 Unchanged bilateral diffuse interstitial infiltrates Impression . 1. Acute hypoxic respiratory failure secondary to ARDS/COVID-19 infection, worsening intubated 06/19/[address] of chest secondary to COVID-19 infection/ARDS 3. Diabetes type 2 with hyperglycemia 4. Hypertension--- now hypotensive. Stable blood pressure today 5. Hyperlipdemia 6. Obesity Plan . Updated 07/02/21 Continue current vent support, setting reviewed assist control mode. Remains on 80% FiO2 and 9 of PEEP. abg reviewed improve po2 titrate peep fio2 as tolerated need to taper off vec gtt if able Follow ABG/CXR-reviewed. Make changes as needed. S/P remdesivir Status post steroids treatment Continue zinc/vitamin C As needed NS bolus to keep MAP greater than 65 Continue tube feeding for nutritional support DVT/GI prophylaxis: Lovenox Discussed with RN and RT Full code Updated 07/01/21 Continue current vent support, setting reviewed assist control mode. Re sherrie on 80% FiO2 and 9 of PEEP. titrate peep fio2 as tolerated Follow ABG/CXR-reviewed. Make changes as needed. S/P remdesivir Status post steroids treatment Continue zinc/vitamin C As needed NS bolus to keep MAP greater than 65 Continue tube feeding for nutritional support DVT/GI prophylaxis: Lovenox Discussed with RN and RT Full code Updated 06/30/21 Continue current vent support, patient is now on assist control mode. Oxygen requirement unchanged. Remains on 80% FiO2 and 9 of PEEP. Follow ABG/CXR-reviewed. Make changes as needed. S/P remdesivir Status post steroids treatment Continue zinc/vitamin C As needed NS bolus to keep MAP greater than 65 Continue tube feeding for nutritional support DVT/GI prophylaxis: Lovenox Discussed with RN and RT Full code Critical care time 30 minutes Updated 06/29/21 Continue current vent support, currently pressure control mode of (37) 1 /37/80%/9 Follow ABG/CXR-reduce rate to 14 today S/P remdesivir Continue zinc/vitamin C Give 500 cc NS bolus if not improved start vasopressor medications to keep MAP greater than 65 Continue tube feeding for nutritional support DVT/GI prophylaxis: Lovenox Discussed with RN and RT Full code Critical care time 30 minutes ALANNAH CARTER MD Jul 02, 2021 06:39
[2021-07-02 07:38] LABS: BASE EXCESS ABG 6 mmol/L (-3-3); HCO3 ABG 33 mmol/L (21-28); PCO2 ABG 55 mmHg (35-46); PO2 ABG 72 mmHg (75-108); SAT O2 ABG 94 % (92-99)
[2021-07-02 08:36] LABS: FIO2 ABG 80
[2021-07-02] MEDS: ASCORBIC ACID 1,000 MG TABLET PO SCH ×3 (08:42→20:58)
[2021-07-02] MEDS: PANTOPRAZOLE IV PUSH 40 MG VIAL. IVP SCH (08:42)
[2021-07-02] MEDS: FUROSEMIDE 40 MG/4 ML VIAL. IVP SCH (08:43)
[2021-07-02] MEDS: GABAPENTIN 300 MG CAPSULE. PO SCH ×3 (08:43→20:58)
[2021-07-02] MEDS: THIAMINE 100 MG TABLET. PO SCH (08:43)
[2021-07-02] MEDS: ACETAMINOPHEN 325 MG TABLET. PO PRN ×2 (08:43→21:44)
[2021-07-02] MEDS: ZINC SULFATE 220 MG CAPSULE. PO SCH (08:43)
[2021-07-02] MEDS: ENOXAPARIN 40 MG/0.4 ML SYRINGE. SQ SCH ×2 (08:44→20:59)
[2021-07-02] MEDS: LISINOPRIL 5 MG TABLET. PO SCH (09:00)
--- NOTE | 2021-07-02 10:20 | PDOC ---
[employer] PROGRESS NOTE Date of Service DOS: DATE: 07/02/21 TIME: 10:17 Chief Complaint Chief Complaint Acute hypoxic respiratory failure requiring BiPAP COVID-19 pneumonia Morbid obesity History of diabetes mellitus type 2 History of hypertension Severe malnutrition Plan: Continue insulin to 10 units twice daily and continue low intensity RISS Appreciate pulmonary recommendations for mechanical ventilation Continue IV thiamine and vitamin C IV Solu-Medrol 40 mg daily Titrate O2 supplementation to maintain O2 saturation greater than 92% Completed IV Remdesivir Lovenox for DVT prophylaxis Protonix while ventilated GI prophylaxis ADA diet Full code Discussed with RN and SW Disposition ICU management as above Surrogate decision maker is the undesignated at this time History of Present Illness History of Present Illness Patient is a transfer from [facility] in [facility] 40-year-old female with past medical history of diabetes, hypertension, dyslipidemia and morbid obesity who complains of shortness of breath 1 week ago and went to urgent care and found out that she was positive for Covid. She came in at 5:00 in the morning at [facility] is very hypoxic and was found to be her oxygen saturation was 68% she was put on a nonrebreather 15 L and she was improved to 90 to 93%. Patient is [id number]. Patient is a poor historian. She does not know what kind of medication she takes for her medical history. 06/15/21 Patient seen and examined at bedside in the ICU. She was face time talking with family members. She was still on nonrebreather. Reports that she feels improved from yesterday. Otherwise no complaints. Pulmonary consulted. Plan of care discussed with bedside nurse. 06/16/21 Patient seen and examined at bedside. On Vapotherm doing well. Stable from yesterday. No major complaints. Pulmonary following. Plan of care discussed with bedside nurse. 06/17/21 Patient seen and examined at bedside. Remains on Vapotherm although O2 requirement decreasing. Continue current plan. Plan of care discussed bedside nurse. 06/18/21 Patient seen and examined at bedside. On 40 L Vapotherm and now requiring NRB in addition. Worsening oxygenation. Although leukocytosis persists since patient is afebrile and on broad-spectrum antibiotics suspect this is related to steroids. Remdesivir finishes today. Pulmonary following. Plan of care discussed with bedside nurse. 06/19/2021: Intubated overnight in ICU. Afebrile. Currently breathing FiO2 100%. Completed remdesivir. We will continue IV steroids and prophylactic antibiotics. 30 minutes critical care time spent reviewing charts, reviewing labs, reviewing imaging, and discussion with RN. 06/20/2021: Low-grade fever overnight (T-max 99.7 F). Remains on vent, FiO2 90%, PEEP 10. Continue treatment with IV steroids and prophylactic IV antibiotics. She has completed a course of remdesivir. Continue supportive care. Critical care time 30 minutes spent reviewing charts, reviewing labs, imaging, discussion with RN. 06/21/21: Afebrile. On vent with FiO2 80%, PEEP 10. Continue treatment with prophylactic antibiotics steroids total of 10 day course (steroid taper to begin 06/24). Completed course remdesivir. Continue supportive care. Critical care time 30 minutes spent reviewing charts, reviewing labs, imaging, discussion with RN. 06/22/2021: Afebrile. Remains on ventilator with FiO2 70%, PEEP 10. Completed remdesivir. Continue antibiotics, steroids with slow taper. Continue supportive care. Critical care time 30 minutes spent reviewing charts, reviewing labs, imaging, discussion with RN. 06/23/2021: Afebrile. On vent with FiO2 of 70, PEEP 10. Continue antibiotics for diffuse bilateral opacities. Continue steroids with slow taper to begin tomorrow. Continue supportive care. Critical care time 30 minutes spent reviewing charts, reviewing labs, imaging, discussion with RN. 06/24/2021: Afebrile. On vent with FiO2 60%, PEEP 9. Continue antibiotics. Today is day 10 of steroids; will begin Solu-Medrol taper tomorrow. S/p remdesivir. Continue supportive care. Critical care time 30 minutes spent reviewing charts, reviewing labs, imaging, discussion with RN. 06/25/2021: On vent with FiO2 65, PEEP 9. Afebrile. Completed 10 days of steroids; will begin Solu-Medrol taper today at 60 mg twice daily. Will provide 60 mg twice daily, then 60 mg daily tomorrow. After which time will observe off antibiotics. S/P remdesivir. Continue supportive care. Critical care time 30 minutes spent reviewing charts, reviewing labs, imaging, discussion with RN. 06/26/2021 No acute events overnight. Patient still intubated and sedated vent settings at 20/450/70/9. Increased insulin dose to 10 units twice daily. Solu-Medrol decreased to 40 mg daily. Continue with IV Lasix daily and as needed for of volume overload. Patient's chart, labs, images were reviewed and discussed with RN A total of 34 minutes of critical care time was spent in reviewing chart, labs, and images. Discussed with RN and KEVIN. 06/27/21 No acute events overnight. Patient is intubated and sedated. Vent settings at assist control at saturating 97%. Vent settings set at 16/80/9. ABG at 7.4 8/43/58/32. A total of 32 minutes of critical care time was spent in reviewing chart, labs, and images. Discussed with RN and KEVIN. 06/28/2021 No acute events overnight. Patient continues to be intubated and sedated. Saturating 90% on assist control with vent settings of 16/80/9. Better sugar control with adjusted insulin. Patient's chart, labs, images were reviewed and discussed with RN A total of 32 minutes of critical care time was spent in reviewing chart, labs, and images. Discussed with RN and KEVIN. 06/29/2021 No acute events overnight patient saturating 98% on vent settings of 10/80/9. A total of 39 minutes of critical care time was spent in reviewing chart, labs, and images. Discussed with RN and KEVIN. 06/30/2021 No acute events overnight. Patient did have hypotensive episode during the day which required a 500 NS bolus. May repeat as needed per pulmonology. Possibly needing vasopressors but will continue to observe at this time. Currently saturating 98% on vent settings of 14 pressure support/80/9. A total of 32 minutes of critical care time was spent in reviewing chart, labs, and images. Discussed with RN and KEVIN. 07/01/2021 No acute events overnight. Patient saturating 99% on vent settings of 14 pressure support/80/9. Urine output of 3.6 L in the last 24 hours. Adequate urine output. Patient's chart, labs, images were reviewed and discussed with RN A total of 34 minutes of critical care time was spent in reviewing chart, labs, and images. Discussed with RN and KEVIN. 07/02/2021 No acute events overnight. Patient saturating better. Drip added. Saturating 100% on 14/70/9. Fever of 101.1 this morning. Will obtain CBC, CMP and procalcitonin. Consider ID consult possible empiric IV antibiotics for superimposed bacterial pneumonia versus VAP. No signs of infection on physical exam. Patient's chart, labs, images were reviewed and discussed with RN A total of 40 minutes of critical care time was spent in reviewing chart, labs, and images. Discussed with RN and SW. Vitals/I&O Vitals/I&O: Vital Signs Date Time Temp Pulse Resp B/P (MAP) Pulse Ox O2 Delivery O2 Flow Rate FiO2 07/02/21 09:14 98 Ventilator 07/02/21 06:00 99.8 90 14 103/52 (69) 99.8 I & O 07/01/21 07/01/21 07/02/21 15:00 23:00 07:00 Intake Total 240 ml 1614 ml 1671.90 ml Output Total 1450 ml 925 ml 320 ml Balance -1210 ml 689 ml 1351.90 ml Physical Exam General: No acute distress, Other (Intubated and sedated) Heart: Regular rate, Normal S1, Normal S2 Lungs: Crackles Abdomen: Normal bowel sounds, Soft Extremities: No clubbing, No edema, Normal pulses Skin: No rashes, No significant lesion Labs Labs: Laboratory Tests Test 07/01/21 11:47 07/01/21 17:32 07/01/21 19:54 07/02/21 00:08 Glucose (Fingerstick) 135 mg/dL (70-99) 193 mg/dL (70-99) 151 mg/dL (70-99) 134 mg/dL (70-99) Test 07/02/21 06:00 07/02/21 07:33 Glucose (Fingerstick) 159 mg/dL (70-99) O2 Saturation 94 % (92-99) Arterial Blood pH 7.39 (7.35-7.45) Arterial Blood pCO2 at Patient Temp 55 mmHg (35-46) Arterial Blood pO2 at Patient Temp 72 mmHg (75-108) Arterial Blood HCO3 33 mmol/L (21-28) Arterial Blood Base Excess 6 mmol/L (-3-3) FiO2 80 Comment Review of Relevant I have reviewed the following items man (where applicable) has been applied. Justifications for Admission Other Justification Acute hypoxic respiratory failure and Covid pneumonia REENA MORA MD Jul 02, 2021 10:20
[2021-07-02 11:01] LABS: BASO % 0 % (0-3); EOS # 0.3 x10^3/uL (0.0-0.7); EOS % 2 % (0-3); HEMATOCRIT 28.8 % (36.0-47.0); HEMOGLOBIN 9.3 g/dL (12.0-15.5); LYMPH # 0.9 x10^3/uL (1.0-4.8); LYMPH % 5 % (24-48); MEAN CORPUSCULAR HEMOGLOBIN 24 pg (25-35); MEAN CORPUSCULAR HGB CONC 32 g/dL (31-37); MEAN CORPUSCULAR VOLUME 76 fL (79-100); MONO # 0.7 x10^3/uL (0.0-1.1); MONO % 4 % (0-9); NEUT # 14.6 x10^3/uL (1.8-7.7); NEUT % 89 % (31-73); PLATELET COUNT 172 x10^3/uL (140-400); RED BLOOD COUNT 3.78 x10^6/uL (3.50-5.40); WHITE BLOOD COUNT 16.5 x10^3/uL (4.0-11.0)
[2021-07-02 11:17] LABS: ALBUMIN/GLOBULIN RATIO 0.5 (1.0-1.7); CALCIUM 8.3 mg/dL (8.5-10.1); CREATININE 0.5 mg/dL (0.6-1.0); GFR 136.6; MAGNESIUM 1.8 mg/dL (1.8-2.4); POTASSIUM 3.3 mmol/L (3.5-5.1); TOTAL BILIRUBIN 0.6 mg/dL (0.2-1.0); TOTAL PROTEIN 6.3 g/dL (6.4-8.2)
[2021-07-02] MEDS: INSULIN GLARGINE SYRINGE. SQ SCH ×2 (11:55→20:57)
[2021-07-02 12:25] LABS: % BANDS 12 % (0-9); % EOS 3 % (0-5); % LYMPHS 5 % (24-48); % MONOS 2 % (0-10); % SEGS 78 % (35-66)
[2021-07-02 12:26] LABS: PLT ESTIMATE ADEQUATE (ADEQUATE)
[2021-07-03] VITALS (24 sets, daily range): BP systolic 84–156; BP diastolic 33–69
[2021-07-03] MEDS: PROPOFOL 100 ML IV PRN ×4 (05:06→20:34)
[2021-07-03] MEDS: INSULIN LISPRO 300 UNITS/3 ML VIAL. SQ SCH ×4 (06:00→17:39)
[2021-07-03 06:24] LABS: BASO # 0.1 x10^3/uL (0.0-0.2); BASO % 1 % (0-3); EOS # 0.4 x10^3/uL (0.0-0.7); EOS % 4 % (0-3); HEMATOCRIT 25.9 % (36.0-47.0); HEMOGLOBIN 8.3 g/dL (12.0-15.5); LYMPH % 10 % (24-48); MEAN CORPUSCULAR HEMOGLOBIN 25 pg (25-35); MEAN CORPUSCULAR HGB CONC 32 g/dL (31-37); MEAN CORPUSCULAR VOLUME 77 fL (79-100); MONO # 0.5 x10^3/uL (0.0-1.1); MONO % 5 % (0-9); NEUT # 8.3 x10^3/uL (1.8-7.7); NEUT % 81 % (31-73); PLATELET COUNT 145 x10^3/uL (140-400); RED BLOOD COUNT 3.37 x10^6/uL (3.50-5.40); RED CELL DISTRIBUTION WIDTH 18.4 % (11.5-14.5); WHITE BLOOD COUNT 10.2 x10^3/uL (4.0-11.0)
[2021-07-03 07:26] LABS: CALCIUM 8.4 mg/dL (8.5-10.1); CREATININE 0.4 mg/dL (0.6-1.0); GFR 176.8; PHOSPHORUS 2.1 mg/dL (2.6-4.7); POTASSIUM 3.3 mmol/L (3.5-5.1)
[2021-07-03 07:36] LABS: BASE EXCESS ABG 4 mmol/L (-3-3); HCO3 ABG 31 mmol/L (21-28); PO2 ABG 59 mmHg (75-108); SAT O2 ABG 88 % (92-99)
[2021-07-03 07:40] LABS: FIO2 ABG 70; PCO2 ABG 60 mmHg (35-46)
[2021-07-03] MEDS: DEXMEDETOMIDINE 400 MCG in IV NORMAL SALINE 100ML 96 ML IV PRN ×3 (08:07→21:31)
[2021-07-03] MEDS: NORCURON - VECURONIUM 50 MG in IV NORMAL SALINE 50ML 50 ML IV PRN ×3 (08:08→21:32)
[2021-07-03] MEDS: ASCORBIC ACID 1,000 MG TABLET PO SCH ×3 (08:08→20:43)
[2021-07-03] MEDS: THIAMINE 100 MG TABLET. PO SCH (08:08)
[2021-07-03] MEDS: PANTOPRAZOLE IV PUSH 40 MG VIAL. IVP SCH (08:09)
[2021-07-03] MEDS: ENOXAPARIN 40 MG/0.4 ML SYRINGE. SQ SCH ×2 (08:09→20:42)
[2021-07-03] MEDS: FUROSEMIDE 40 MG/4 ML VIAL. IVP SCH (08:09)
[2021-07-03] MEDS: GABAPENTIN 300 MG CAPSULE. PO SCH ×3 (08:10→20:43)
[2021-07-03] MEDS: ZINC SULFATE 220 MG CAPSULE. PO SCH (08:10)
[2021-07-03] MEDS: LISINOPRIL 5 MG TABLET. PO SCH (09:00)
[2021-07-03] MEDS: MIDAZOLAM 100mg/100ml NS BAG 100 ML IV PRN ×2 (10:21→20:35)
[2021-07-03] MEDS: INSULIN GLARGINE SYRINGE. SQ SCH ×2 (10:24→20:40)
--- NOTE | 2021-07-03 10:53 | PDOC ---
[employer] PROGRESS NOTE Date of Service DOS: DATE: 07/03/21 TIME: 10:41 Chief Complaint Chief Complaint Acute hypoxic respiratory failure requiring BiPAP COVID-19 pneumonia Morbid obesity History of diabetes mellitus type 2 History of hypertension Severe malnutrition Plan: Continue insulin to 10 units twice daily and continue low intensity RISS Appreciate pulmonary recommendations for mechanical ventilation Continue IV thiamine and vitamin C IV Solu-Medrol 40 mg daily Titrate O2 supplementation to maintain O2 saturation greater than 92% Completed IV Remdesivir Lovenox for DVT prophylaxis Protonix while ventilated GI prophylaxis ADA diet Full code Discussed with RN and SW Disposition ICU management as above Surrogate decision maker is the undesignated at this time History of Present Illness History of Present Illness Ms Pierce is a transfer from [facility] in [facility], 40-year-old female with past medical history of diabetes, hypertension, dyslipidemia and morbid obesity who complains of shortness of breath 1 week ago and went to urgent care and found out that she was positive for Covid. She came in at 5:00 in the morning at [facility] is very hypoxic and was found to be her oxygen saturation was 68% she was put on a nonrebreather 15 L and she was improved to 90 to 93%. Patient is [id number]. Patient is a poor historian. She does not know what kind of medication she takes for her medical history. 06/15/21 Patient seen and examined at bedside in the ICU. She was face time talking with family members. She was still on nonrebreather. Reports that she feels improved from yesterday. Otherwise no complaints. Pulmonary consulted. Plan of care discussed with bedside nurse. 06/16/21 Patient seen and examined at bedside. On Vapotherm doing well. Stable from yesterday. No major complaints. Pulmonary following. Plan of care discussed with bedside nurse. 06/17/21 Patient seen and examined at bedside. Remains on Vapotherm although O2 requirement decreasing. Continue current plan. Plan of care discussed bedside nurse. 06/18/21 Patient seen and examined at bedside. On 40 L Vapotherm and now requiring NRB in addition. Worsening oxygenation. Although leukocytosis persists since patient is afebrile and on broad-spectrum antibiotics suspect this is related to steroids. Remdesivir finishes today. Pulmonary following. Plan of care discussed with bedside nurse. 06/19/2021: Intubated overnight in ICU. Afebrile. Currently breathing FiO2 100%. Completed remdesivir. We will continue IV steroids and prophylactic antibiotics. 30 minutes critical care time spent reviewing charts, reviewing labs, reviewing imaging, and discussion with RN. 06/20/2021: Low-grade fever overnight (T-max 99.7 F). Remains on vent, FiO2 90%, PEEP 10. Continue treatment with IV steroids and prophylactic IV antibiotics. She has completed a course of remdesivir. Continue supportive care. Critical care time 30 minutes spent reviewing charts, reviewing labs, imaging, discussion with RN. 06/21/21: Afebrile. On vent with FiO2 80%, PEEP 10. Continue treatment with prophylactic antibiotics steroids total of 10 day course (steroid taper to begin 06/24). Completed course remdesivir. Continue supportive care. Critical care time 30 minutes spent reviewing charts, reviewing labs, imaging, discussion with RN. 06/22/2021: Afebrile. Remains on ventilator with FiO2 70%, PEEP 10. Completed remdesivir. Continue antibiotics, steroids with slow taper. Continue supportive care. Critical care time 30 minutes spent reviewing charts, reviewing labs, imaging, discussion with RN. 06/23/2021: Afebrile. On vent with FiO2 of 70, PEEP 10. Continue antibiotics for diffuse bilateral opacities. Continue steroids with slow taper to begin tomorrow. Continue supportive care. Critical care time 30 minutes spent reviewing charts, reviewing labs, imaging, discussion with RN. 06/24/2021: Afebrile. On vent with FiO2 60%, PEEP 9. Continue antibiotics. Today is day 10 of steroids; will begin Solu-Medrol taper tomorrow. S/p remdesivir. Continue supportive care. Critical care time 30 minutes spent reviewing charts, reviewing labs, imaging, discussion with RN. 06/25/2021: On vent with FiO2 65, PEEP 9. Afebrile. Completed 10 days of steroids; will begin Solu-Medrol taper today at 60 mg twice daily. Will provide 60 mg twice daily, then 60 mg daily tomorrow. After which time will observe off antibiotics. S/P remdesivir. Continue supportive care. Critical care time 30 minutes spent reviewing charts, reviewing labs, imaging, discussion with RN. 06/26/2021 No acute events overnight. Patient still intubated and sedated vent settings at 20/450/70/9. Increased insulin dose to 10 units twice daily. Solu-Medrol decreased to 40 mg daily. Continue with IV Lasix daily and as needed for of volume overload. Patient's chart, labs, images were reviewed and discussed with RN A total of 34 minutes of critical care time was spent in reviewing chart, labs, and images. Discussed with RN and KEVIN. 06/27/21 No acute events overnight. Patient is intubated and sedated. Vent settings at assist control at saturating 97%. Vent settings set at 16/80/9. ABG at 7.4 8/58/32. A total of 32 minutes of critical care time was spent in reviewing chart, labs, and images. Discussed with RN and KEVIN. 06/28/2021 No acute events overnight. Patient continues to be intubated and sedated. Saturating 90% on assist control with vent settings of 16/80/9. Better sugar control with adjusted insulin. Patient's chart, labs, images were reviewed and discussed with RN A total of 32 minutes of critical care time was spent in reviewing chart, labs, and images. Discussed with RN and KEVIN. 06/29/2021 No acute events overnight patient saturating 98% on vent settings of 10/80/9. A total of 39 minutes of critical care time was spent in reviewing chart, labs, and images. Discussed with RN and KEVIN. 06/30/2021 No acute events overnight. Patient did have hypotensive episode during the day which required a 500 NS bolus. May repeat as needed per pulmonology. Possibly needing vasopressors but will continue to observe at this time. Currently saturating 98% on vent settings of 14 pressure support/80/9. A total of 32 minutes of critical care time was spent in reviewing chart, labs, and images. Discussed with RN and KEVIN. 07/01/2021 No acute events overnight. Patient saturating 99% on vent settings of 14 pressure support/80/9. Urine output of 3.6 L in the last 24 hours. Adequate urine output. Patient's chart, labs, images were reviewed and discussed with RN A total of 34 minutes of critical care time was spent in reviewing chart, labs, and images. Discussed with RN and KEVIN. 07/02/2021 No acute events overnight. Patient saturating better. Drip added. Saturating 100% on 14/70/9. Fever of 101.1 this morning. Will obtain CBC, CMP and procalcitonin. Consider ID consult possible empiric IV antibiotics for superimposed bacterial pneumonia versus VAP. No signs of infection on physical exam. Patient's chart, labs, images were reviewed and discussed with RN A total of 40 minutes of critical care time was spent in reviewing chart, labs, and images. Discussed with RN and SW. 07/03: Overnight febrile to 101.1 F. O2 saturations 96% on 70% FiO2 and high PEEP. Still requiring vecuronium for vent dyssynchrony. CC time 35 minutes. Vitals/I&O Vitals/I&O: Vital Signs Date Time Temp Pulse Resp B/P (MAP) Pulse Ox O2 Delivery O2 Flow Rate FiO2 07/03/21 10:20 14 96 Ventilator 07/03/21 10:00 120 121/55 (77) 07/03/21 08:00 99.6 99.6 07/02/21 23:44 40.0 I & O 07/02/21 07/02/21 07/03/21 15:00 23:00 07:00 Intake Total 240 ml 1602 ml 1452.3 ml Output Total 1060 ml 670 ml 550 ml Balance -820 ml 932 ml 902.3 ml Physical Exam General: No acute distress, Other (Intubated and sedated) Heart: Regular rate, Normal S1, Normal S2 Lungs: Crackles Abdomen: Normal bowel sounds, Soft Extremities: No clubbing, No edema, Normal pulses Skin: No rashes, No significant lesion Labs Labs: Laboratory Tests Test 07/02/21 10:52 07/02/21 11:52 07/02/21 17:39 07/03/21 00:39 White Blood Count 16.5 x10^3/uL (4.0-11.0) Red Blood Count 3.78 x10^6/uL (3.50-5.40) Hemoglobin 9.3 g/dL (12.0-15.5) Hematocrit 28.8 % (36.0-47.0) Mean Corpuscular Volume 76 fL (79-100) Mean Corpuscular Hemoglobin 24 pg (25-35) Mean Corpuscular Hemoglobin Concent 32 g/dL (31-37) Red Cell Distribution Width 18.0 % (11.5-14.5) Platelet Count 172 x10^3/uL (140-400) Neutrophils (%) (Auto) 89 % (31-73) Lymphocytes (%) (Auto) 5 % (24-48) Monocytes (%) (Auto) 4 % (0-9) Eosinophils (%) (Auto) 2 % (0-3) Basophils (%) (Auto) 0 % (0-3) Neutrophils # (Auto) 14.6 x10^3/uL (1.8-7.7) Lymphocytes # (Auto) 0.9 x10^3/uL (1.0-4.8) Monocytes # (Auto) 0.7 x10^3/uL (0.0-1.1) Eosinophils # (Auto) 0.3 x10^3/uL (0.0-0.7) Basophils # (Auto) 0.0 x10^3/uL (0.0-0.2) Segmented Neutrophils % 78 % (35-66) Band Neutrophils % 12 % (0-9) Lymphocytes % 5 % (24-48) Monocytes % 2 % (0-10) Eosinophils % 3 % (0-5) Platelet Estimate Adequate (ADEQUATE) Sodium Level 138 mmol/L (136-145) Potassium Level 3.3 mmol/L (3.5-5.1) Chloride Level 100 mmol/L (98-107) Carbon Dioxide Level 36 mmol/L (21-32) Anion Gap 2 (6-14) Blood Urea Nitrogen 14 mg/dL (7-20) Creatinine 0.5 mg/dL (0.6-1.0) Estimated GFR (Cockcroft-Gault) 136.6 BUN/Creatinine Ratio 28 (6-20) Glucose Level 170 mg/dL (70-99) Calcium Level 8.3 mg/dL (8.5-10.1) Magnesium Level 1.8 mg/dL (1.8-2.4) Total Bilirubin 0.6 mg/dL (0.2-1.0) Aspartate Amino Transf (AST/SGOT) 21 U/L (15-37) Alanine Aminotransferase (ALT/SGPT) 32 U/L (14-59) Alkaline Phosphatase 92 U/L (46-116) Total Protein 6.3 g/dL (6.4-8.2) Albumin 2.0 g/dL (3.4-5.0) Albumin/Globulin Ratio 0.5 (1.0-1.7) Procalcitonin 0.79 ng/mL (0.00-0.10) Glucose (Fingerstick) 161 mg/dL (70-99) 177 mg/dL (70-99) 142 mg/dL (70-99) Test 07/03/21 05:44 07/03/21 05:46 07/03/21 07:30 White Blood Count 10.2 x10^3/uL (4.0-11.0) Red Blood Count 3.37 x10^6/uL (3.50-5.40) Hemoglobin 8.3 g/dL (12.0-15.5) Hematocrit 25.9 % (36.0-47.0) Mean Corpuscular Volume 77 fL (79-100) Mean Corpuscular Hemoglobin 25 pg (25-35) Mean Corpuscular Hemoglobin Concent 32 g/dL (31-37) Red Cell Distribution Width 18.4 % (11.5-14.5) Platelet Count 145 x10^3/uL (140-400) Neutrophils (%) (Auto) 81 % (31-73) Lymphocytes (%) (Auto) 10 % (24-48) Monocytes (%) (Auto) 5 % (0-9) Eosinophils (%) (Auto) 4 % (0-3) Basophils (%) (Auto) 1 % (0-3) Neutrophils # (Auto) 8.3 x10^3/uL (1.8-7.7) Lymphocytes # (Auto) 1.0 x10^3/uL (1.0-4.8) Monocytes # (Auto) 0.5 x10^3/uL (0.0-1.1) Eosinophils # (Auto) 0.4 x10^3/uL (0.0-0.7) Basophils # (Auto) 0.1 x10^3/uL (0.0-0.2) Sodium Level 138 mmol/L (136-145) Potassium Level 3.3 mmol/L (3.5-5.1) Chloride Level 101 mmol/L (98-107) Carbon Dioxide Level 36 mmol/L (21-32) Anion Gap 1 (6-14) Blood Urea Nitrogen 15 mg/dL (7-20) Creatinine 0.4 mg/dL (0.6-1.0) Estimated GFR (Cockcroft-Gault) 176.8 Glucose Level 142 mg/dL (70-99) Calcium Level 8.4 mg/dL (8.5-10.1) Phosphorus Level 2.1 mg/dL (2.6-4.7) Magnesium Level 2.0 mg/dL (1.8-2.4) Glucose (Fingerstick) 140 mg/dL (70-99) O2 Saturation 88 % (92-99) Arterial Blood pH 7.33 (7.35-7.45) Arterial Blood pCO2 at Patient Temp 60 mmHg (35-46) Arterial Blood pO2 at Patient Temp 59 mmHg (75-108) Arterial Blood HCO3 31 mmol/L (21-28) Arterial Blood Base Excess 4 mmol/L (-3-3) FiO2 70 Comment Review of Relevant I have reviewed the following items man (where applicable) has been applied. Justifications for Admission Other Justification Acute hypoxic respiratory failure and Covid pneumonia DUNG MCDONOUGH MD Jul 03, 2021 10:53
--- NOTE | 2021-07-03 10:55 | PDOC ---
PULMONARY PROGRESS NOTES DATE: 07/03/21 TIME: 10:53 Subjective Patient remains on ventilatory support peep 9 fio2 70%sedated on versed prop fentanyl small ett secretion on vec gtt has vent dys synchrony on Saturday Afebrile assist control mode. Vitals Vital Signs Date Time Temp Pulse Resp B/P (MAP) Pulse Ox O2 Delivery O2 Flow Rate FiO2 07/03/21 10:20 14 96 Ventilator 07/03/21 10:00 120 121/55 (77) 07/03/21 08:00 99.6 99.6 07/02/21 23:44 40.0 Comments ros unable to obtain on vent sedated HEENT: Other (nc at perrl orally intubated nose clear neck no lad no thyromegaly) Lungs: Crackles Cardiovascular: S1 Abdomen: Soft, Other (Obese) Extremities: No Edema Skin: Warm Labs Laboratory Tests Test 07/01/21 11:47 07/01/21 17:32 07/01/21 19:54 07/02/21 00:08 Glucose (Fingerstick) 135 mg/dL (70-99) 193 mg/dL (70-99) 151 mg/dL (70-99) 134 mg/dL (70-99) Test 07/02/21 06:00 07/02/21 07:33 07/02/21 10:52 07/02/21 11:52 Glucose (Fingerstick) 159 mg/dL (70-99) 161 mg/dL (70-99) O2 Saturation 94 % (92-99) Arterial Blood pH 7.39 (7.35-7.45) Arterial Blood pCO2 at Patient Temp 55 mmHg (35-46) Arterial Blood pO2 at Patient Temp 72 mmHg (75-108) Arterial Blood HCO3 33 mmol/L (21-28) Arterial Blood Base Excess 6 mmol/L (-3-3) FiO2 80 White Blood Count 16.5 x10^3/uL (4.0-11.0) Red Blood Count 3.78 x10^6/uL (3.50-5.40) Hemoglobin 9.3 g/dL (12.0-15.5) Hematocrit 28.8 % (36.0-47.0) Mean Corpuscular Volume 76 fL (79-100) Mean Corpuscular Hemoglobin 24 pg (25-35) Mean Corpuscular Hemoglobin Concent 32 g/dL (31-37) Red Cell Distribution Width 18.0 % (11.5-14.5) Platelet Count 172 x10^3/uL (140-400) Neutrophils (%) (Auto) 89 % (31-73) Lymphocytes (%) (Auto) 5 % (24-48) Monocytes (%) (Auto) 4 % (0-9) Eosinophils (%) (Auto) 2 % (0-3) Basophils (%) (Auto) 0 % (0-3) Neutrophils # (Auto) 14.6 x10^3/uL (1.8-7.7) Lymphocytes # (Auto) 0.9 x10^3/uL (1.0-4.8) Monocytes # (Auto) 0.7 x10^3/uL (0.0-1.1) Eosinophils # (Auto) 0.3 x10^3/uL (0.0-0.7) Basophils # (Auto) 0.0 x10^3/uL (0.0-0.2) Segmented Neutrophils % 78 % (35-66) Band Neutrophils % 12 % (0-9) Lymphocytes % 5 % (24-48) Monocytes % 2 % (0-10) Eosinophils % 3 % (0-5) Platelet Estimate Adequate (ADEQUATE) Sodium Level 138 mmol/L (136-145) Potassium Level 3.3 mmol/L (3.5-5.1) Chloride Level 100 mmol/L (98-107) Carbon Dioxide Level 36 mmol/L (21-32) Anion Gap 2 (6-14) Blood Urea Nitrogen 14 mg/dL (7-20) Creatinine 0.5 mg/dL (0.6-1.0) Estimated GFR (Cockcroft-Gault) 136.6 BUN/Creatinine Ratio 28 (6-20) Glucose Level 170 mg/dL (70-99) Calcium Level 8.3 mg/dL (8.5-10.1) Magnesium Level 1.8 mg/dL (1.8-2.4) Total Bilirubin 0.6 mg/dL (0.2-1.0) Aspartate Amino Transf (AST/SGOT) 21 U/L (15-37) Alanine Aminotransferase (ALT/SGPT) 32 U/L (14-59) Alkaline Phosphatase 92 U/L (46-116) Total Protein 6.3 g/dL (6.4-8.2) Albumin 2.0 g/dL (3.4-5.0) Albumin/Globulin Ratio 0.5 (1.0-1.7) Procalcitonin 0.79 ng/mL (0.00-0.10) Test 07/02/21 17:39 07/03/21 00:39 07/03/21 05:44 07/03/21 05:46 Glucose (Fingerstick) 177 mg/dL (70-99) 142 mg/dL (70-99) 140 mg/dL (70-99) White Blood Count 10.2 x10^3/uL (4.0-11.0) Red Blood Count 3.37 x10^6/uL (3.50-5.40) Hemoglobin 8.3 g/dL (12.0-15.5) Hematocrit 25.9 % (36.0-47.0) Mean Corpuscular Volume 77 fL (79-100) Mean Corpuscular Hemoglobin 25 pg (25-35) Mean Corpuscular Hemoglobin Concent 32 g/dL (31-37) Red Cell Distribution Width 18.4 % (11.5-14.5) Platelet Count 145 x10^3/uL (140-400) Neutrophils (%) (Auto) 81 % (31-73) Lymphocytes (%) (Auto) 10 % (24-48) Monocytes (%) (Auto) 5 % (0-9) Eosinophils (%) (Auto) 4 % (0-3) Basophils (%) (Auto) 1 % (0-3) Neutrophils # (Auto) 8.3 x10^3/uL (1.8-7.7) Lymphocytes # (Auto) 1.0 x10^3/uL (1.0-4.8) Monocytes # (Auto) 0.5 x10^3/uL (0.0-1.1) Eosinophils # (Auto) 0.4 x10^3/uL (0.0-0.7) Basophils # (Auto) 0.1 x10^3/uL (0.0-0.2) Sodium Level 138 mmol/L (136-145) Potassium Level 3.3 mmol/L (3.5-5.1) Chloride Level 101 mmol/L (98-107) Carbon Dioxide Level 36 mmol/L (21-32) Anion Gap 1 (6-14) Blood Urea Nitrogen 15 mg/dL (7-20) Creatinine 0.4 mg/dL (0.6-1.0) Estimated GFR (Cockcroft-Gault) 176.8 Glucose Level 142 mg/dL (70-99) Calcium Level 8.4 mg/dL (8.5-10.1) Phosphorus Level 2.1 mg/dL (2.6-4.7) Magnesium Level 2.0 mg/dL (1.8-2.4) Test 07/03/21 07:30 O2 Saturation 88 % (92-99) Arterial Blood pH 7.33 (7.35-7.45) Arterial Blood pCO2 at Patient Temp 60 mmHg (35-46) Arterial Blood pO2 at Patient Temp 59 mmHg (75-108) Arterial Blood HCO3 31 mmol/L (21-28) Arterial Blood Base Excess 4 mmol/L (-3-3) FiO2 70 Laboratory Tests Test 07/02/21 11:52 07/02/21 17:39 07/03/21 00:39 07/03/21 05:44 Glucose (Fingerstick) 161 mg/dL (70-99) 177 mg/dL (70-99) 142 mg/dL (70-99) White Blood Count 10.2 x10^3/uL (4.0-11.0) Red Blood Count 3.37 x10^6/uL (3.50-5.40) Hemoglobin 8.3 g/dL (12.0-15.5) Hematocrit 25.9 % (36.0-47.0) Mean Corpuscular Volume 77 fL (79-100) Mean Corpuscular Hemoglobin 25 pg (25-35) Mean Corpuscular Hemoglobin Concent 32 g/dL (31-37) Red Cell Distribution Width 18.4 % (11.5-14.5) Platelet Count 145 x10^3/uL (140-400) Neutrophils (%) (Auto) 81 % (31-73) Lymphocytes (%) (Auto) 10 % (24-48) Monocytes (%) (Auto) 5 % (0-9) Eosinophils (%) (Auto) 4 % (0-3) Basophils (%) (Auto) 1 % (0-3) Neutrophils # (Auto) 8.3 x10^3/uL (1.8-7.7) Lymphocytes # (Auto) 1.0 x10^3/uL (1.0-4.8) Monocytes # (Auto) 0.5 x10^3/uL (0.0-1.1) Eosinophils # (Auto) 0.4 x10^3/uL (0.0-0.7) Basophils # (Auto) 0.1 x10^3/uL (0.0-0.2) Sodium Level 138 mmol/L (136-145) Potassium Level 3.3 mmol/L (3.5-5.1) Chloride Level 101 mmol/L (98-107) Carbon Dioxide Level 36 mmol/L (21-32) Anion Gap 1 (6-14) Blood Urea Nitrogen 15 mg/dL (7-20) Creatinine 0.4 mg/dL (0.6-1.0) Estimated GFR (Cockcroft-Gault) 176.8 Glucose Level 142 mg/dL (70-99) Calcium Level 8.4 mg/dL (8.5-10.1) Phosphorus Level 2.1 mg/dL (2.6-4.7) Magnesium Level 2.0 mg/dL (1.8-2.4) Test 07/03/21 05:46 07/03/21 07:30 Glucose (Fingerstick) 140 mg/dL (70-99) O2 Saturation 88 % (92-99) Arterial Blood pH 7.33 (7.35-7.45) Arterial Blood pCO2 at Patient Temp 60 mmHg (35-46) Arterial Blood pO2 at Patient Temp 59 mmHg (75-108) Arterial Blood HCO3 31 mmol/L (21-28) Arterial Blood Base Excess 4 mmol/L (-3-3) FiO2 70 Medications Active Scripts Medications Dose Route/Sig Max Daily Dose Days Date Category Cyclobenzaprine Hcl 10 Mg Tablet 10 Mg PO TID 06/15/21 Reported Meloxicam 15 Mg Tablet 15 Mg PO DAILY 06/15/21 Reported Fluticasone Propionate Nasal [place] (Fluticasone Propionate) 16 Gm [place].susp 1 [place] NS DAILY 06/15/21 Reported Loratadine 10 Mg Tablet 10 Mg PO DAILY 06/15/21 Reported Furosemide 20 Mg Tablet 20 Mg PO DAILY 06/15/21 Reported Gabapentin (Gabapentin) 300 Mg Capsule 300 Mg PO TID 06/15/21 Reported Gabapentin (Gabapentin) 300 Mg Capsule 300 Mg PO TID 06/15/21 Reported Lisinopril 5 Mg Tablet 1 Tab PO DAILY 06/15/21 Reported Metformin Hcl 500 Mg Tablet 500 Mg PO BIDWMEALS 06/15/21 Reported Ozempic (Semaglutide) 0.25 Mg/0.2 Ml Pen.injctr 0.25 Mg SQ WEEKLY 06/15/21 Reported Comments Chest x-ray reviewed 06/30/2021 Unchanged bilateral diffuse interstitial infiltrates Impression . 1. Acute hypoxic respiratory failure secondary to ARDS/COVID-19 infection, worsening intubated 06/19/[address] of chest secondary to COVID-19 infection/ARDS 3. Diabetes type 2 with hyperglycemia 4. Hypertension--- blood pressure has been labile. 5. Hyperlipdemia 6. Obesity Plan . Updated 07/03/21 Continue current vent support, setting reviewed assist control mode. Remains on 70% FiO2 and 9 of PEEP. abg reviewed improve po2 titrate peep fio2 as tolerated need to taper off vec gtt if able Follow ABG/CXR-reviewed. Make changes as needed. S/P remdesivir Status post steroids treatment Continue zinc/vitamin C As needed NS bolus to keep MAP greater than 65 Continue tube feeding for nutritional support DVT/GI prophylaxis: Lovenox Discussed with RN and RT Full code Updated 07/02/21 Continue current vent support, setting reviewed assist control mode. Remains on 80% FiO2 and 9 of PEEP. abg reviewed improve po2 titrate peep fio2 as tolerated need to taper off vec gtt if able Follow ABG/CXR-reviewed. Make changes as needed. S/P remdesivir Status post steroids treatment Continue zinc/vitamin C As needed NS bolus to keep MAP greater than 65 Continue tube feeding for nutritional support DVT/GI prophylaxis: Lovenox Discussed with RN and RT Full code Updated 07/01/21 Continue current vent support, setting reviewed assist control mode. R emains on 80% FiO2 and 9 of PEEP. titrate peep fio2 as tolerated Follow ABG/CXR-reviewed. Make changes as needed. S/P remdesivir Status post steroids treatment Continue zinc/vitamin C As needed NS bolus to keep MAP greater than 65 Continue tube feeding for nutritional support DVT/GI prophylaxis: Lovenox Discussed with RN and RT Full code Updated 06/30/21 Continue current vent support, patient is now on assist control mode. Oxygen requirement unchanged. Remains on 80% FiO2 and 9 of PEEP. Follow ABG/CXR-reviewed. Make changes as needed. S/P remdesivir Status post steroids treatment Continue zinc/vitamin C As needed NS bolus to keep MAP greater than 65 Continue tube feeding for nutritional support DVT/GI prophylaxis: Lovenox Discussed with RN and RT Full code Critical care time 30 minutes Updated 06/29/21 Continue current vent support, currently pressure control mode of (37) 16/37/80%/9 Follow ABG/CXR-reduce rate to 14 today S/P remdesivir Continue zinc/vitamin C Give 500 cc NS bolus if not improved start vasopressor medications to keep MAP greater than 65 Continue tube feeding for nutritional support DVT/GI prophylaxis: Lovenox Discussed with RN and RT Full code Critical care time 30 minutes NICOLETTE MORALES MD Jul 03, 2021 10:55
[2021-07-03] MEDS: POTASSIUM CHLORIDE 20MEQ 100 ML IV SCH ×2 (11:07→14:48)
[2021-07-03] MEDS: ACETAMINOPHEN 325 MG TABLET. PO PRN (11:26)
[2021-07-03] MEDS ORDERED: MAGNESIUM SULFATE 1GM 100 ML IV ONE (12:00)
--- NOTE | 2021-07-03 12:14 | NUR ---
Temp is up to 103.2. Dr. Alvarado here on the unit and notified. New orders received to consult ID. Dr. Shante Gan here on the unit and notified of the consult. See orders for further details.
[2021-07-03] MEDS: MEROPENEM 500 MG in IV NORMAL SALINE 50ML 50 ML IV SCH ×2 (14:51→21:32)
--- NOTE | 2021-07-03 15:31 | NUR ---
SS following up with discharge planning. SS reviewed pt chart and discussed with pt RN. Pt is currently on the vent at 70%. Pt had fever of 103.2 today. COVID19 recovered. Pt on IV Meropenem and IV Zyvox. Pt on Vec, Versed, Fentanyl, Propofol, and IV Lasix. SS will continue to follow for discharge planning.
--- NOTE | 2021-07-03 22:59 | CONS ---
DATE OF CONSULTATION: 07/03/2021 REFERRING PHYSICIANS: Dr. Peguero and Dr. Alvarado. REASON FOR CONSULTATION: Fever. HISTORY OF PRESENT ILLNESS: This is a 40-year-old obese female who was transferred to [facility] from [facility] with COVID with worsening hypoxia. The patient has been intubated since then. The patient had 103 fever today, hence consultation. The patient's yesterday, white count was 16,000. The patient is not on any antibiotics. The patient has gone through the COVID treatment and now supportive care. The patient is not able to provide any information as she is sedated and ventilated. No nausea, vomiting. She does have diarrhea as per the fdc. PAST MEDICAL HISTORY: Positive for morbid obesity, hypertension, diabetes, hyperlipidemia. SOCIAL HISTORY: Unable to obtain. CURRENT MEDICATIONS: Reviewed. REVIEW OF SYSTEMS: As in HPI. All other systems reviewed and are negative. PHYSICAL EXAMINATION: GENERAL: Sedated, orally intubated female, not in distress. VITAL SIGNS: Stable. T-max is 103, pulse 120, respirations 14, blood pressure 121/55. HEENT: Both pupils are round and reacting. No conjunctival lesion. Mouth cannot be visualized, has orally intubated. NECK: Supple, no JVP, no lymphadenopathy. LUNGS: Clear. HEART: S1, S2 regular. ABDOMEN: Soft, nontender, no organomegaly. EXTREMITIES: No edema, cyanosis. SKIN: Unremarkable. NEUROLOGIC: The patient is sedated, intubated, neurologically unable to assess. LABORATORY DATA: White count is down to 10,000 from 16,000. BUN and creatinine is normal. Her prior blood cultures have been negative. Recent blood culture from today is done. Chest x-ray showed diffuse infiltrate. IMPRESSION: 1. Fever secondary bacterial infection now is a possibility this far out. 2. COVID-19 infection. 3. Pulmonary infiltrate. 4. Respiratory failure. 5. Leukocytosis. 6. Morbid obesity. RECOMMEND: We will start the patient on meropenem and Zyvox. Rivera culture. Supportive care and we will continue to follow. Thank you very much, Dr. Alvarado and Dr. Peguero, for giving to participate in this patient's care. THAIS/KATHLEEN/JACKSON DR: THAIS/jeanie TID: [id number]
[2021-07-04] VITALS (24 sets, daily range): BP systolic 85–127; BP diastolic 42–59
[2021-07-04] MEDS: INSULIN LISPRO 300 UNITS/3 ML VIAL. SQ SCH ×4 (00:05→18:15)
[2021-07-04] MEDS: PROPOFOL 100 ML IV PRN ×6 (00:06→22:31)
[2021-07-04] MEDS: DEXMEDETOMIDINE 400 MCG in IV NORMAL SALINE 100ML 96 ML IV PRN ×5 (03:11→22:02)
[2021-07-04] MEDS: MIDAZOLAM 100mg/100ml NS BAG 100 ML IV PRN ×3 (03:43→22:03)
[2021-07-04] MEDS: MEROPENEM 500 MG in IV NORMAL SALINE 50ML 50 ML IV SCH (05:36)
[2021-07-04 06:36] LABS: BASO % 0 % (0-3); EOS # 0.4 x10^3/uL (0.0-0.7); EOS % 6 % (0-3); HEMATOCRIT 23.4 % (36.0-47.0); HEMOGLOBIN 7.7 g/dL (12.0-15.5); LYMPH # 0.8 x10^3/uL (1.0-4.8); LYMPH % 12 % (24-48); MEAN CORPUSCULAR HEMOGLOBIN 25 pg (25-35); MEAN CORPUSCULAR HGB CONC 33 g/dL (31-37); MEAN CORPUSCULAR VOLUME 77 fL (79-100); MONO # 0.4 x10^3/uL (0.0-1.1); MONO % 6 % (0-9); NEUT # 5.4 x10^3/uL (1.8-7.7); NEUT % 77 % (31-73); PLATELET COUNT 122 x10^3/uL (140-400); RED BLOOD COUNT 3.05 x10^6/uL (3.50-5.40); RED CELL DISTRIBUTION WIDTH 19.3 % (11.5-14.5); WHITE BLOOD COUNT 7.1 x10^3/uL (4.0-11.0)
[2021-07-04 06:49] LABS: ALBUMIN 1.5 g/dL (3.4-5.0); ALBUMIN/GLOBULIN RATIO 0.4 (1.0-1.7); CALCIUM 8.5 mg/dL (8.5-10.1); CREATININE 0.4 mg/dL (0.6-1.0); GFR 176.8; POTASSIUM 3.5 mmol/L (3.5-5.1); TOTAL BILIRUBIN 0.8 mg/dL (0.2-1.0); TOTAL PROTEIN 5.6 g/dL (6.4-8.2)
[2021-07-04 07:18] LABS: BASE EXCESS ABG 9 mmol/L (-3-3); HCO3 ABG 35 mmol/L (21-28); PCO2 ABG 57 mmHg (35-46); SAT O2 ABG 85 % (92-99)
--- NOTE | 2021-07-04 07:31 | PDOC ---
[employer] PROGRESS NOTE Date of Service DOS: DATE: 07/04/21 TIME: 07:19 Chief Complaint Chief Complaint Acute hypoxic respiratory failure requiring BiPAP COVID-19 pneumonia Morbid obesity History of diabetes mellitus type 2 History of hypertension Severe malnutrition Septic shock Gram negative bacteremia Plan: Continue insulin to 10 units twice daily and continue low intensity RISS Appreciate pulmonary recommendations for mechanical ventilation Continue IV thiamine and vitamin C IV Solu-Medrol 40 mg daily Titrate O2 supplementation to maintain O2 saturation greater than 92% Completed IV Remdesivir Lovenox for DVT prophylaxis Protonix while ventilated GI prophylaxis ADA diet Full code Discussed with RN and SW Disposition ICU management as above Surrogate decision maker is the undesignated at this time History of Present Illness History of Present Illness Ms Pierce is a transfer from [facility] in [facility], 40-year-old female with past medical history of diabetes, hypertension, dyslipidemia and morbid obesity who complains of shortness of breath 1 week ago and went to urgent care and found out that she was positive for Covid. She came in at 5:00 in the morning at [facility] is very hypoxic and was found to be her oxygen saturation was 68% she was put on a nonrebreather 15 L and she was improved to 90 to 93%. Patient is [id number]. Patient is a poor historian. She does not know what kind of medication she takes for her medical history. 06/15: In the ICU. She was face time talking with family members. She was still on nonrebreather. Pulmonary consulted. 06/16: On Vapotherm. No major complaints. 06/17: Remains on Vapotherm although O2 requirement decreasing. Continue current plan. 06/18: On 40 L Vapotherm and now requiring NRB in addition. Afebrile and on broad-spectrum antibiotics. Remdesivir finishes today. 06/19: Intubated overnight in ICU. Afebrile. Currently breathing FiO2 100%. Completed remdesivir. We will continue IV steroids and antibiotics. 06/20: Low-grade fever overnight (T-max 99.7 F). Remains on vent, FiO2 90%, PEEP 10. Continue treatment with IV steroids and antibiotics. 06/21: Afebrile. On vent with FiO2 80%, PEEP 10. Cont treatment with antibiotics steroids total of 10 day course (steroid taper to begin 06/24). 06/22: Afebrile. Remains on ventilator with FiO2 70%, PEEP 10. Completed remdesivir. Continue antibiotics, steroids with slow taper. 06/23: Afebrile. On vent with FiO2 of 70, PEEP 10. Continue antibiotics for diffuse bilateral opacities. Continue steroids with slow taper 06/24: Afebrile. On vent with FiO2 60%, PEEP 9. Continue antibiotics. Today is day 10 of steroids; will begin Solu-Medrol taper tomorrow. 06/25: On vent with FiO2 65, PEEP 9. Afebrile. Completed 10 days of steroids; will begin Solu-Medrol taper today at 60 mg twice daily. 06/26: Intubated and sedated vent at 20/450/70/9. Insulin dose to 10 units twice daily. Solu-Medrol decreased to 40 mg daily. Cont with IV Lasix 06/27: Intubated and sedated. Vent settings at assist control at saturating 97%. Vent settings set at 16/80/9. ABG at 7.4 /58/32. 06/28: No acute events overnight. Patient continues to be intubated and sedated. Saturating 90% on assist control with vent settings of 16/80/9. 06/29: No acute events overnight patient saturating 98% on vent settings of 10/80/9. 06/30: Patient did have hypotensive episode during the day which required a 500 NS bolus. Possibly needing vasopressors. pressure support/80/9. 07/01: No acute events overnight. Patient saturating 99% on vent settings of 14 pressure support/80/9. Urine output of 3.6 L in the last 24 hours. 07/02: Paralyzed for vent dysynchrony. Saturating 100% on 14/70/9. Fever of 101.1 this morning. 07/03: Febrile 101.1 F. 70% FiO2 and 9 PEEP. Still requiring vecuronium for vent dyssynchrony. ID consulted for sepsis, ?VAP T-max 102.6 F last 24 hours, afebrile overnight. Peripheral culture and cult ure from headache and sputum and urine culture obtained. Now on meropenem and Zyvox. More hypoxic, ABG 7.4 57/48, requiring FiO2 90% PEEP of 9 Vitals/I&O Vitals/I&O: Vital Signs Date Time Temp Pulse Resp B/P (MAP) Pulse Ox O2 Delivery O2 Flow Rate FiO2 07/04/21 06:00 65 15 104/50 (68) 95 Ventilator 07/04/21 04:14 40.0 07/04/21 04:00 98.7 98.7 I & O 07/03/21 07/03/21 07/04/21 15:00 23:00 07:00 Intake Total 240 ml 2346 ml 973.2 ml Output Total 1410 ml 335 ml 700 ml Balance -1170 ml 2011 ml 273.2 ml Physical Exam General: No acute distress, Other (Intubated and sedated) Heart: Regular rate, Normal S1, Normal S2 Lungs: Crackles Abdomen: Normal bowel sounds, Soft Extremities: No clubbing, No edema, Normal pulses Skin: No rashes, No significant lesion Labs Labs: Laboratory Tests Test 07/03/21 07:30 07/03/21 12:05 07/03/21 17:38 07/04/21 00:00 O2 Saturation 88 % (92-99) Arterial Blood pH 7.33 (7.35-7.45) Arterial Blood pCO2 at Patient Temp 60 mmHg (35-46) Arterial Blood pO2 at Patient Temp 59 mmHg (75-108) Arterial Blood HCO3 31 mmol/L (21-28) Arterial Blood Base Excess 4 mmol/L (-3-3) FiO2 70 Glucose (Fingerstick) 204 mg/dL (70-99) 191 mg/dL (70-99) 165 mg/dL (70-99) Test 07/04/21 05:55 07/04/21 06:08 White Blood Count 7.1 x10^3/uL (4.0-11.0) Red Blood Count 3.05 x10^6/uL (3.50-5.40) Hemoglobin 7.7 g/dL (12.0-15.5) Hematocrit 23.4 % (36.0-47.0) Mean Corpuscular Volume 77 fL (79-100) Mean Corpuscular Hemoglobin 25 pg (25-35) Mean Corpuscular Hemoglobin Concent 33 g/dL (31-37) Red Cell Distribution Width 19.3 % (11.5-14.5) Platelet Count 122 x10^3/uL (140-400) Neutrophils (%) (Auto) 77 % (31-73) Lymphocytes (%) (Auto) 12 % (24-48) Monocytes (%) (Auto) 6 % (0-9) Eosinophils (%) (Auto) 6 % (0-3) Basophils (%) (Auto) 0 % (0-3) Neutrophils # (Auto) 5.4 x10^3/uL (1.8-7.7) Lymphocytes # (Auto) 0.8 x10^3/uL (1.0-4.8) Monocytes # (Auto) 0.4 x10^3/uL (0.0-1.1) Eosinophils # (Auto) 0.4 x10^3/uL (0.0-0.7) Basophils # (Auto) 0.0 x10^3/uL (0.0-0.2) Sodium Level 139 mmol/L (136-145) Potassium Level 3.5 mmol/L (3.5-5.1) Chloride Level 101 mmol/L (98-107) Carbon Dioxide Level 38 mmol/L (21-32) Anion Gap 0 (6-14) Blood Urea Nitrogen 16 mg/dL (7-20) Creatinine 0.4 mg/dL (0.6-1.0) Estimated GFR (Cockcroft-Gault) 176.8 BUN/Creatinine Ratio 40 (6-20) Glucose Level 110 mg/dL (70-99) Calcium Level 8.5 mg/dL (8.5-10.1) Total Bilirubin 0.8 mg/dL (0.2-1.0) Aspartate Amino Transf (AST/SGOT) 23 U/L (15-37) Alanine Aminotransferase (ALT/SGPT) 19 U/L (14-59) Alkaline Phosphatase 95 U/L (46-116) Total Protein 5.6 g/dL (6.4-8.2) Albumin 1.5 g/dL (3.4-5.0) Albumin/Globulin Ratio 0.4 (1.0-1.7) Procalcitonin 6.17 ng/mL (0.00-0.10) Glucose (Fingerstick) 115 mg/dL (70-99) Comment Review of Relevant I have reviewed the following items man (where applicable) has been applied. Medications: Current Medications Medications (Trade) Dose Ordered Sig/Jun Route PRN Reason Start Time Stop Time Status Last Admin Dose Admin Magnesium Sulfate/ Dextrose 100 ml @ 100 mls/hr 1X ONCE IV 07/03/21 12:00 07/03/21 12:59 DC 07/03/21 12:04 Potassium Chloride/Water 100 ml @ 100 mls/hr Q1H IV 07/03/21 12:00 07/03/21 13:59 DC 07/03/21 14:48 Meropenem 500 mg/ Sodium Chloride 50 ml @ 100 mls/hr Q8HRS IV 07/03/21 14:00 07/04/21 05:36 Linezolid/Dextrose 300 ml @ 300 mls/hr Q12HR IV 07/03/21 13:00 07/03/21 20:38 Justifications for Admission Other Justification Acute hypoxic respiratory failure and Covid pneumonia DUNG MCDONOUGH MD Jul 04, 2021 07:31
--- NOTE | 2021-07-04 07:43 | PDOC ---
Infectious Disease Note Subjective Subjective pt is sedated on vent ROS ROS no n/v/fever has improved Vital Sign Vital Signs Vital Signs Date Time Temp Pulse Resp B/P (MAP) Pulse Ox O2 Delivery O2 Flow Rate FiO2 07/04/21 07:03 94 Ventilator 07/04/21 06:00 65 15 104/50 (68) 07/04/21 04:14 40.0 07/04/21 04:00 98.7 98.7 Physical Exam PHYSICAL EXAM GENERAL: Sedated, orally intubated female, not in distress. VITAL SIGNS: Stable. HEENT: Both pupils are round and reacting. No conjunctival lesion. Mouth cannot be visualized, has orally intubated. NECK: Supple, no JVP, no lymphadenopathy. LUNGS: Clear. HEART: S1, S2 regular. ABDOMEN: Soft, nontender, no organomegaly. EXTREMITIES: No edema, cyanosis. SKIN: Unremarkable. NEUROLOGIC: The patient is sedated, intubated, neurologically unable to assess. Labs Lab Laboratory Tests Test 07/03/21 12:05 07/03/21 17:38 07/04/21 00:00 07/04/21 05:55 Glucose (Fingerstick) 204 mg/dL (70-99) 191 mg/dL (70-99) 165 mg/dL (70-99) White Blood Count 7.1 x10^3/uL (4.0-11.0) Red Blood Count 3.05 x10^6/uL (3.50-5.40) Hemoglobin 7.7 g/dL (12.0-15.5) Hematocrit 23.4 % (36.0-47.0) Mean Corpuscular Volume 77 fL (79-100) Mean Corpuscular Hemoglobin 25 pg (25-35) Mean Corpuscular Hemoglobin Concent 33 g/dL (31-37) Red Cell Distribution Width 19.3 % (11.5-14.5) Platelet Count 122 x10^3/uL (140-400) Neutrophils (%) (Auto) 77 % (31-73) Lymphocytes (%) (Auto) 12 % (24-48) Monocytes (%) (Auto) 6 % (0-9) Eosinophils (%) (Auto) 6 % (0-3) Basophils (%) (Auto) 0 % (0-3) Neutrophils # (Auto) 5.4 x10^3/uL (1.8-7.7) Lymphocytes # (Auto) 0.8 x10^3/uL (1.0-4.8) Monocytes # (Auto) 0.4 x10^3/uL (0.0-1.1) Eosinophils # (Auto) 0.4 x10^3/uL (0.0-0.7) Basophils # (Auto) 0.0 x10^3/uL (0.0-0.2) Sodium Level 139 mmol/L (136-145) Potassium Level 3.5 mmol/L (3.5-5.1) Chloride Level 101 mmol/L (98-107) Carbon Dioxide Level 38 mmol/L (21-32) Anion Gap 0 (6-14) Blood Urea Nitrogen 16 mg/dL (7-20) Creatinine 0.4 mg/dL (0.6-1.0) Estimated GFR (Cockcroft-Gault) 176.8 BUN/Creatinine Ratio 40 (6-20) Glucose Level 110 mg/dL (70-99) Calcium Level 8.5 mg/dL (8.5-10.1) Total Bilirubin 0.8 mg/dL (0.2-1.0) Aspartate Amino Transf (AST/SGOT) 23 U/L (15-37) Alanine Aminotransferase (ALT/SGPT) 19 U/L (14-59) Alkaline Phosphatase 95 U/L (46-116) Total Protein 5.6 g/dL (6.4-8.2) Albumin 1.5 g/dL (3.4-5.0) Albumin/Globulin Ratio 0.4 (1.0-1.7) Procalcitonin 6.17 ng/mL (0.00-0.10) Test 07/04/21 06:08 Glucose (Fingerstick) 115 mg/dL (70-99) Micro Microbiology 06/14/21 Blood Culture - Final, Complete NO GROWTH AFTER 5 DAYS Objective Assessment IMPRESSION: 1. Fever improving 2. COVID-19 infection. 3. Pulmonary infiltrate. 4. Respiratory failure. 5. Leukocytosis. 6. Morbid obesity. 7 G neg camilo bacteremia Plan Plan of Care cont meropenem d/c zyvox check cultures supportive care CT abd and pelvis ROBERTO HADDAD MD Jul 04, 2021 07:43
[2021-07-04 08:06] LABS: FIO2 ABG 70; PO2 ABG 48 mmHg (75-108)
[2021-07-04] MEDS: INSULIN GLARGINE SYRINGE. SQ SCH ×2 (09:00→21:12)
[2021-07-04] MEDS: LISINOPRIL 5 MG TABLET. PO SCH (09:00)
[2021-07-04] MEDS: NORCURON - VECURONIUM 50 MG in IV NORMAL SALINE 50ML 50 ML IV PRN ×2 (09:06→19:29)
[2021-07-04] MEDS: THIAMINE 100 MG TABLET. PO SCH (09:07)
[2021-07-04] MEDS: ZINC SULFATE 220 MG CAPSULE. PO SCH (09:07)
[2021-07-04] MEDS: PANTOPRAZOLE IV PUSH 40 MG VIAL. IVP SCH (09:07)
[2021-07-04] MEDS: FUROSEMIDE 40 MG/4 ML VIAL. IVP SCH (09:07)
[2021-07-04] MEDS: ASCORBIC ACID 1,000 MG TABLET PO SCH ×3 (09:07→21:11)
[2021-07-04] MEDS: GABAPENTIN 300 MG CAPSULE. PO SCH ×3 (09:07→21:11)
[2021-07-04] MEDS: ENOXAPARIN 40 MG/0.4 ML SYRINGE. SQ SCH ×2 (09:07→21:11)
--- NOTE | 2021-07-04 09:35 | NUR ---
SS following up with discharge planning. SS reviewed pt chart and discussed with pt RN. Pt is currently on the vent at 90%. COVID19 recovered. Pt on IV Meropenem. Pt on Vec, Versed, Fentanyl, Propofol, and IV Lasix. Not stable. SS will continue to follow for discharge planning.
--- NOTE | 2021-07-04 10:24 | PDOC ---
PULMONARY PROGRESS NOTES DATE: 07/04/21 TIME: 10:22 Subjective Patient remains on ventilatory support peep 9 fio2 requirement has increased. Now on 90% oxygen ,sedated on versed prop fentanyl small ett secretion on vec gtt Afebrile assist control mode. Low-grade fever and gram-negative rods in the blood Vitals Vital Signs Date Time Temp Pulse Resp B/P (MAP) Pulse Ox O2 Delivery O2 Flow Rate FiO2 07/04/21 09:25 97 Ventilator 07/04/21 06:00 65 15 104/50 (68) 07/04/21 04:14 40.0 07/04/21 04:00 98.7 98.7 Comments ros unable to obtain on vent sedated Lungs: Crackles Cardiovascular: S1 Abdomen: Soft, Other (Obese) Extremities: No Edema Skin: Warm Labs Laboratory Tests Test 07/02/21 10:52 07/02/21 11:52 07/02/21 17:39 07/03/21 00:39 White Blood Count 16.5 x10^3/uL (4.0-11.0) Red Blood Count 3.78 x10^6/uL (3.50-5.40) Hemoglobin 9.3 g/dL (12.0-15.5) Hematocrit 28.8 % (36.0-47.0) Mean Corpuscular Volume 76 fL (79-100) Mean Corpuscular Hemoglobin 24 pg (25-35) Mean Corpuscular Hemoglobin Concent 32 g/dL (31-37) Red Cell Distribution Width 18.0 % (11.5-14.5) Platelet Count 172 x10^3/uL (140-400) Neutrophils (%) (Auto) 89 % (31-73) Lymphocytes (%) (Auto) 5 % (24-48) Monocytes (%) (Auto) 4 % (0-9) Eosinophils (%) (Auto) 2 % (0-3) Basophils (%) (Auto) 0 % (0-3) Neutrophils # (Auto) 14.6 x10^3/uL (1.8-7.7) Lymphocytes # (Auto) 0.9 x10^3/uL (1.0-4.8) Monocytes # (Auto) 0.7 x10^3/uL (0.0-1.1) Eosinophils # (Auto) 0.3 x10^3/uL (0.0-0.7) Basophils # (Auto) 0.0 x10^3/uL (0.0-0.2) Segmented Neutrophils % 78 % (35-66) Band Neutrophils % 12 % (0-9) Lymphocytes % 5 % (24-48) Monocytes % 2 % (0-10) Eosinophils % 3 % (0-5) Platelet Estimate Adequate (ADEQUATE) Sodium Level 138 mmol/L (136-145) Potassium Level 3.3 mmol/L (3.5-5.1) Chloride Level 100 mmol/L (98-107) Carbon Dioxide Level 36 mmol/L (21-32) Anion Gap 2 (6-14) Blood Urea Nitrogen 14 mg/dL (7-20) Creatinine 0.5 mg/dL (0.6-1.0) Estimated GFR (Cockcroft-Gault) 136.6 BUN/Creatinine Ratio 28 (6-20) Glucose Level 170 mg/dL (70-99) Calcium Level 8.3 mg/dL (8.5-10.1) Magnesium Level 1.8 mg/dL (1.8-2.4) Total Bilirubin 0.6 mg/dL (0.2-1.0) Aspartate Amino Transf (AST/SGOT) 21 U/L (15-37) Alanine Aminotransferase (ALT/SGPT) 32 U/L (14-59) Alkaline Phosphatase 92 U/L (46-116) Total Protein 6.3 g/dL (6.4-8.2) Albumin 2.0 g/dL (3.4-5.0) Albumin/Globulin Ratio 0.5 (1.0-1.7) Procalcitonin 0.79 ng/mL (0.00-0.10) Glucose (Fingerstick) 161 mg/dL (70-99) 177 mg/dL (70-99) 142 mg/dL (70-99) Test 07/03/21 05:44 07/03/21 05:46 07/03/21 07:30 07/03/21 12:05 White Blood Count 10.2 x10^3/uL (4.0-11.0) Red Blood Count 3.37 x10^6/uL (3.50-5.40) Hemoglobin 8.3 g/dL (12.0-15.5) Hematocrit 25.9 % (36.0-47.0) Mean Corpuscular Volume 77 fL (79-100) Mean Corpuscular Hemoglobin 25 pg (25-35) Mean Corpuscular Hemoglobin Concent 32 g/dL (31-37) Red Cell Distribution Width 18.4 % (11.5-14.5) Platelet Count 145 x10^3/uL (140-400) Neutrophils (%) (Auto) 81 % (31-73) Lymphocytes (%) (Auto) 10 % (24-48) Monocytes (%) (Auto) 5 % (0-9) Eosinophils (%) (Auto) 4 % (0-3) Basophils (%) (Auto) 1 % (0-3) Neutrophils # (Auto) 8.3 x10^3/uL (1.8-7.7) Lymphocytes # (Auto) 1.0 x10^3/uL (1.0-4.8) Monocytes # (Auto) 0.5 x10^3/uL (0.0-1.1) Eosinophils # (Auto) 0.4 x10^3/uL (0.0-0.7) Basophils # (Auto) 0.1 x10^3/uL (0.0-0.2) Sodium Level 138 mmol/L (136-145) Potassium Level 3.3 mmol/L (3.5-5.1) Chloride Level 101 mmol/L (98-107) Carbon Dioxide Level 36 mmol/L (21-32) Anion Gap 1 (6-14) Blood Urea Nitrogen 15 mg/dL (7-20) Creatinine 0.4 mg/dL (0.6-1.0) Estimated GFR (Cockcroft-Gault) 176.8 Glucose Level 142 mg/dL (70-99) Calcium Level 8.4 mg/dL (8.5-10.1) Phosphorus Level 2.1 mg/dL (2.6-4.7) Magnesium Level 2.0 mg/dL (1.8-2.4) Glucose (Fingerstick) 140 mg/dL (70-99) 204 mg/dL (70-99) O2 Saturation 88 % (92-99) Arterial Blood pH 7.33 (7.35-7.45) Arterial Blood pCO2 at Patient Temp 60 mmHg (35-46) Arterial Blood pO2 at Patient Temp 59 mmHg (75-108) Arterial Blood HCO3 31 mmol/L (21-28) Arterial Blood Base Excess 4 mmol/L (-3-3) FiO2 70 Test 07/03/21 17:38 07/04/21 00:00 07/04/21 05:55 07/04/21 06:08 Glucose (Fingerstick) 191 mg/dL (70-99) 165 mg/dL (70-99) 115 mg/dL (70-99) White Blood Count 7.1 x10^3/uL (4.0-11.0) Red Blood Count 3.05 x10^6/uL (3.50-5.40) Hemoglobin 7.7 g/dL (12.0-15.5) Hematocrit 23.4 % (36.0-47.0) Mean Corpuscular Volume 77 fL (79-100) Mean Corpuscular Hemoglobin 25 pg (25-35) Mean Corpuscular Hemoglobin Concent 33 g/dL (31-37) Red Cell Distribution Width 19.3 % (11.5-14.5) Platelet Count 122 x10^3/uL (140-400) Neutrophils (%) (Auto) 77 % (31-73) Lymphocytes (%) (Auto) 12 % (24-48) Monocytes (%) (Auto) 6 % (0-9) Eosinophils (%) (Auto) 6 % (0-3) Basophils (%) (Auto) 0 % (0-3) Neutrophils # (Auto) 5.4 x10^3/uL (1.8-7.7) Lymphocytes # (Auto) 0.8 x10^3/uL (1.0-4.8) Monocytes # (Auto) 0.4 x10^3/uL (0.0-1.1) Eosinophils # (Auto) 0.4 x10^3/uL (0.0-0.7) Basophils # (Auto) 0.0 x10^3/uL (0.0-0.2) Sodium Level 139 mmol/L (136-145) Potassium Level 3.5 mmol/L (3.5-5.1) Chloride Level 101 mmol/L (98-107) Carbon Dioxide Level 38 mmol/L (21-32) Anion Gap 0 (6-14) Blood Urea Nitrogen 16 mg/dL (7-20) Creatinine 0.4 mg/dL (0.6-1.0) Estimated GFR (Cockcroft-Gault) 176.8 BUN/Creatinine Ratio 40 (6-20) Glucose Level 110 mg/dL (70-99) Calcium Level 8.5 mg/dL (8.5-10.1) Total Bilirubin 0.8 mg/dL (0.2-1.0) Aspartate Amino Transf (AST/SGOT) 23 U/L (15-37) Alanine Aminotransferase (ALT/SGPT) 19 U/L (14-59) Alkaline Phosphatase 95 U/L (46-116) Total Protein 5.6 g/dL (6.4-8.2) Albumin 1.5 g/dL (3.4-5.0) Albumin/Globulin Ratio 0.4 (1.0-1.7) Procalcitonin 6.17 ng/mL (0.00-0.10) Test 07/04/21 07:13 O2 Saturation 85 % (92-99) Arterial Blood pH 7.41 (7.35-7.45) Arterial Blood pCO2 at Patient Temp 57 mmHg (35-46) Arterial Blood pO2 at Patient Temp 48 mmHg (75-108) Arterial Blood HCO3 35 mmol/L (21-28) Arterial Blood Base Excess 9 mmol/L (-3-3) FiO2 70 Laboratory Tests Test 07/03/21 12:05 07/03/21 17:38 07/04/21 00:00 07/04/21 05:55 Glucose (Fingerstick) 204 mg/dL (70-99) 191 mg/dL (70-99) 165 mg/dL (70-99) White Blood Count 7.1 x10^3/uL (4.0-11.0) Red Blood Count 3.05 x10^6/uL (3.50-5.40) Hemoglobin 7.7 g/dL (12.0-15.5) Hematocrit 23.4 % (36.0-47.0) Mean Corpuscular Volume 77 fL (79-100) Mean Corpuscular Hemoglobin 25 pg (25-35) Mean Corpuscular Hemoglobin Concent 33 g/dL (31-37) Red Cell Distribution Width 19.3 % (11.5-14.5) Platelet Count 122 x10^3/uL (140-400) Neutrophils (%) (Auto) 77 % (31-73) Lymphocytes (%) (Auto) 12 % (24-48) Monocytes (%) (Auto) 6 % (0-9) Eosinophils (%) (Auto) 6 % (0-3) Basophils (%) (Auto) 0 % (0-3) Neutrophils # (Auto) 5.4 x10^3/uL (1.8-7.7) Lymphocytes # (Auto) 0.8 x10^3/uL (1.0-4.8) Monocytes # (Auto) 0.4 x10^3/uL (0.0-1.1) Eosinophils # (Auto) 0.4 x10^3/uL (0.0-0.7) Basophils # (Auto) 0.0 x10^3/uL (0.0-0.2) Sodium Level 139 mmol/L (136-145) Potassium Level 3.5 mmol/L (3.5-5.1) Chloride Level 101 mmol/L (98-107) Carbon Dioxide Level 38 mmol/L (21-32) Anion Gap 0 (6-14) Blood Urea Nitrogen 16 mg/dL (7-20) Creatinine 0.4 mg/dL (0.6-1.0) Estimated GFR (Cockcroft-Gault) 176.8 BUN/Creatinine Ratio 40 (6-20) Glucose Level 110 mg/dL (70-99) Calcium Level 8.5 mg/dL (8.5-10.1) Total Bilirubin 0.8 mg/dL (0.2-1.0) Aspartate Amino Transf (AST/SGOT) 23 U/L (15-37) Alanine Aminotransferase (ALT/SGPT) 19 U/L (14-59) Alkaline Phosphatase 95 U/L (46-116) Total Protein 5.6 g/dL (6.4-8.2) Albumin 1.5 g/dL (3.4-5.0) Albumin/Globulin Ratio 0.4 (1.0-1.7) Procalcitonin 6.17 ng/mL (0.00-0.10) Test 07/04/21 06:08 07/04/21 07:13 Glucose (Fingerstick) 115 mg/dL (70-99) O2 Saturation 85 % (92-99) Arterial Blood pH 7.41 (7.35-7.45) Arterial Blood pCO2 at Patient Temp 57 mmHg (35-46) Arterial Blood pO2 at Patient Temp 48 mmHg (75-108) Arterial Blood HCO3 35 mmol/L (21-28) Arterial Blood Base Excess 9 mmol/L (-3-3) FiO2 70 Medications Active Scripts Medications Dose Route/Sig Max Daily Dose Days Date Category Cyclobenzaprine Hcl 10 Mg Tablet 10 Mg PO TID 06/15/21 Reported Meloxicam 15 Mg Tablet 15 Mg PO DAILY 06/15/21 Reported Fluticasone Propionate Nasal Beverly (Fluticasone Propionate) 16 Gm Beverly.susp 1 Beverly NS DAILY 06/15/21 Reported Loratadine 10 Mg Tablet 10 Mg PO DAILY 06/15/21 Reported Furosemide 20 Mg Tablet 20 Mg PO DAILY 06/15/21 Reported Gabapentin (Gabapentin) 300 Mg Capsule 300 Mg PO TID 06/15/21 Reported Gabapentin (Gabapentin) 300 Mg Capsule 300 Mg PO TID 06/15/21 Reported Lisinopril 5 Mg Tablet 1 Tab PO DAILY 06/15/21 Reported Metformin Hcl 500 Mg Tablet 500 Mg PO BIDWMEALS 06/15/21 Reported Ozempic (Semaglutide) 0.25 Mg/0.2 Ml Pen.injctr 0.25 Mg SQ WEEKLY 06/15/21 Reported Comments Chest x-ray reviewed 06/30/2021 Unchanged bilateral diffuse interstitial infiltrates Impression . 1. Acute hypoxic respiratory failure secondary to ARDS/COVID-19 infection, worsening intubated 06/19/[address] of chest secondary to COVID-19 infection/ARDS 3. Diabetes type 2 with hyperglycemia 4. Hypertension--- blood pressure has been labile. 5. Hyperlipdemia 6. Obesity 7. Low-grade fever and gram-negative rods in the blood. New sepsis Plan . Updated 07/04/21 Continue current vent support, setting reviewed assist control mode. Remains on 90% FiO2 and 9 of PEEP. abg reviewed titrate peep fio2 as tolerated . Follow ABG/CXR-reviewed. Make changes as needed. S/P remdesivir Status post steroids treatment Gram-negative rods in the blood. Follow infectious disease recommendations. Follow final cultures. Continue zinc/vitamin C As needed NS bolus to keep MAP greater than 65 Continue tube feeding for nutritional support DVT/GI prophylaxis: Shelbinox Discussed with RN and RT Full code Updated 07/03/21 Continue current vent support, setting reviewed assist control mode. Remains on 70% FiO2 and 9 of PEEP. abg reviewed improve po2 titrate peep fio2 as tolerated need to taper off vec gtt if able Follow ABG/CXR-reviewed. Make changes as needed. S/P remdesivir Status post steroids treatment Continue zinc/vitamin C As needed NS bolus to keep MAP greater than 65 Continue tube feeding for nutritional support DVT/GI prophylaxis: Lovenox Discussed with RN and RT Full code Updated 07/02/21 Continue current vent support, setting reviewed assist control mode. Remains on 80% FiO2 and 9 of PEEP. abg reviewed improve po2 titrate peep fio2 as tolerated need to taper off vec gtt if able Follow ABG/CXR-reviewed. Make changes as needed. S/P remdesivir Status post steroids treatment Continue zinc/vitamin C As needed NS bolus to keep MAP greater than 65 Continue tube feeding for nutritional support DVT/GI prophylaxis: Lovenox Discussed with RN and RT Full code Updated 07/01/21 Continue current vent support, setting reviewed assist control mode. Remains on 80% FiO2 and 9 of PEEP. titrate peep fio2 as tolerated Follow ABG/CXR-reviewed. Make changes as needed. S/P remdesivir Status post steroids treatment Continue zinc/vitamin C As needed NS bolus to keep MAP greater than 65 Continue tube feeding for nutritional support DVT/GI prophylaxis: Lovenox Discussed with RN and RT Full code Updated 06/30/21 Continue current vent support, patient is now on assist control mode. Oxygen requirement unchanged. Remains on 80% FiO2 and 9 of PEEP. Follow ABG/CXR-reviewed. Make changes as needed. S/P remdesivir Status post steroids treatment Continue zinc/vitamin C As needed NS bolus to keep MAP greater than 65 Continue tube feeding for nutritional support DVT/GI prophylaxis: Lovenox Discussed with RN and RT Full code Critical care time 30 minutes Updated 06/29/21 Continue current vent support, currently pressure control mode of (37) 16/37/80%/9 Follow ABG/CXR-reduce rate to 14 today S/P remdesivir Continue zinc/vitamin C Give 500 cc NS bolus if not improved start vasopressor medications to keep MAP greater than 65 Continue tube feeding for nutritional support DVT/GI prophylaxis: Lovenox Discussed with RN and RT Full code Critical care time 30 minutes NICOLETTE MORALES MD Jul 04, 2021 10:24
[2021-07-04 11:10] LABS: BILIRUBIN,URINE NEGATIVE (NEG); CLARITY,URINE CLEAR; COLOR,URINE YELLOW; NITRITE,URINE NEGATIVE (NEG); PROTEIN,URINE NEGATIVE (NEG-TRACE)
[2021-07-04 11:32] LABS: RBC,URINE OCC /HPF (0-2)
[2021-07-04 11:33] LABS: AMORPHOUS SEDIMENT,UR PRESENT /HPF; BACTERIA,URINE FEW /HPF (0-FEW); HYALINE CASTS, URINE FEW /HPF; YEAST,URINE PRESENT /HPF
[2021-07-04] MEDS: MEROPENEM 1 GM in IV NORMAL SALINE 100ML 100 ML IV SCH ×2 (15:17→21:39)
[2021-07-04 21:53] LABS: BASE EXCESS ABG 10 mmol/L (-3-3); HCO3 ABG 43 mmol/L (21-28); SAT O2 ABG 72 % (92-99)
[2021-07-04 21:59] LABS: PCO2 ABG 130 mmHg (35-46); PO2 ABG 47 mmHg (75-108)
[2021-07-04 22:00] LABS: FIO2 ABG 100
--- NOTE | 2021-07-04 22:29 | RAD ---
EXAMINATION: Chest radiograph. VIEWS: Single view COMPARISON: 06/30/2021 INDICATION:40 years, Female, increased tidal volume. Respiratory failure. FINDINGS: Endotracheal tube tip locates approximately 3.4 cm proximal to the narcisa. Enteric tube tip is off im age, presumably in the stomach. Right central venous catheter remains unchanged. Worsening diffuse bi lateral opacities. No sizable pleural effusion or pneumothorax. No acute osseous process. IMPRESSION: Worsening diffuse bilateral airspace opacities. Electronically signed by: Ronan Castillo MD (07/04/2021 10:27 PM) JORDAN
--- NOTE | 2021-07-04 22:35 | NUR ---
Notified of oxygen sao2 and blood gases. Chest xray completed. Orders received for vent changes. Will continue to monitor.
--- NOTE | 2021-07-04 23:06 | NUR ---
Notified Lala, daughter, of changes in patient condition and increased vent settings. Daughter advised she was told she would need to get vaccinated in order to see her mother. Advised her of hospital guidelines. She also requested a letter for immigration services for her father to see patient. Acknowledged request will notify oncjuan RN in am.
[2021-07-05] VITALS (27 sets, daily range): BP systolic 59–136; BP diastolic 33–79
[2021-07-05] MEDS: INSULIN LISPRO 300 UNITS/3 ML VIAL. SQ SCH ×4 (00:08→17:48)
[2021-07-05] MEDS: DEXMEDETOMIDINE 400 MCG in IV NORMAL SALINE 100ML 96 ML IV PRN ×6 (02:48→20:45)
[2021-07-05] MEDS: NORCURON - VECURONIUM 50 MG in IV NORMAL SALINE 50ML 50 ML IV PRN ×3 (02:51→20:27)
[2021-07-05] MEDS ORDERED: IV NORMAL SALINE 1000ML BAG 1,000 ML IV ONE (03:15)
[2021-07-05] MEDS: NOREPINEPHRINE VIAL 8 MG in IV DEXTROSE 5% 250 ML IV PRN (04:25)
[2021-07-05] MEDS ORDERED: IV NORMAL SALINE 1000ML BAG 1,000 ML IV PRN (04:30)
[2021-07-05] MEDS: PROPOFOL 100 ML IV PRN ×6 (04:39→20:47)
[2021-07-05] MEDS: MEROPENEM 1 GM in IV NORMAL SALINE 100ML 100 ML IV SCH ×3 (05:52→21:49)
[2021-07-05] MEDS: MIDAZOLAM 100mg/100ml NS BAG 100 ML IV PRN ×2 (06:01→20:28)
[2021-07-05 06:40] LABS: BASO % 0 % (0-3); EOS # 0.5 x10^3/uL (0.0-0.7); EOS % 6 % (0-3); HEMATOCRIT 24.1 % (36.0-47.0); HEMOGLOBIN 7.6 g/dL (12.0-15.5); LYMPH # 0.8 x10^3/uL (1.0-4.8); LYMPH % 8 % (24-48); MEAN CORPUSCULAR HEMOGLOBIN 25 pg (25-35); MEAN CORPUSCULAR HGB CONC 31 g/dL (31-37); MEAN CORPUSCULAR VOLUME 78 fL (79-100); MONO # 0.4 x10^3/uL (0.0-1.1); MONO % 5 % (0-9); NEUT # 7.9 x10^3/uL (1.8-7.7); NEUT % 81 % (31-73); PLATELET COUNT 211 x10^3/uL (140-400); RED CELL DISTRIBUTION WIDTH 19.4 % (11.5-14.5); WHITE BLOOD COUNT 9.8 x10^3/uL (4.0-11.0)
[2021-07-05 06:54] LABS: CALCIUM 8.3 mg/dL (8.5-10.1); CREATININE 0.8 mg/dL (0.6-1.0); GFR 79.4; POTASSIUM 3.8 mmol/L (3.5-5.1)
[2021-07-05] MEDS: ASCORBIC ACID 1,000 MG TABLET PO SCH ×3 (07:47→20:43)
[2021-07-05] MEDS: PANTOPRAZOLE IV PUSH 40 MG VIAL. IVP SCH (07:47)
[2021-07-05] MEDS: THIAMINE 100 MG TABLET. PO SCH (07:47)
[2021-07-05] MEDS: GABAPENTIN 300 MG CAPSULE. PO SCH ×3 (07:47→20:44)
[2021-07-05] MEDS: ZINC SULFATE 220 MG CAPSULE. PO SCH (07:48)
[2021-07-05] MEDS: LISINOPRIL 5 MG TABLET. PO SCH (07:49)
[2021-07-05] MEDS: ENOXAPARIN 40 MG/0.4 ML SYRINGE. SQ SCH ×2 (07:49→20:42)
--- NOTE | 2021-07-05 07:57 | PDOC ---
Infectious Disease Note Subjective Subjective pt is sedated on vent ROS ROS No nausea vomiting or fever Vital Sign Vital Signs Vital Signs Date Time Temp Pulse Resp B/P (MAP) Pulse Ox O2 Delivery O2 Flow Rate FiO2 07/05/21 06:00 92 15 104/49 (67) 92 Ventilator 07/05/21 04:00 99.9 99.9 07/05/21 01:29 40.0 Physical Exam PHYSICAL EXAM GENERAL: Sedated, orally intubated female, not in distress. VITAL SIGNS: Stable. HEENT: Both pupils are round and reacting. No conjunctival lesion. Mouth cannot be visualized, has orally intubated. NECK: Supple, no JVP, no lymphadenopathy. LUNGS: Clear. HEART: S1, S2 regular. ABDOMEN: Soft, nontender, no organomegaly. EXTREMITIES: No edema, cyanosis. SKIN: Unremarkable. NEUROLOGIC: The patient is sedated, intubated, neurologically unable to assess. Labs Lab Laboratory Tests Test 07/04/21 10:50 07/04/21 13:01 07/04/21 18:12 07/04/21 21:45 Urine Collection Type Unknown Urine Color Yellow Urine Clarity Clear Urine pH 5.0 (<5.0-8.0) Urine Specific [place] 1.010 (1.000-1.030) Urine Protein Negative mg/dL (NEG-TRACE) Urine Glucose (UA) Negative mg/dL (NEG) Urine Ketones (Stick) Negative mg/dL (NEG) Urine Blood Negative (NEG) Urine Nitrite Negative (NEG) Urine Bilirubin Negative (NEG) Urine Urobilinogen Dipstick 2.0 mg/dL (0.2 mg/dL) Urine Leukocyte Esterase Moderate (NEG) Urine RBC Occ /HPF (0-2) Urine WBC 11-20 /HPF (0-4) Urine Squamous Epithelial Cells Mod /LPF Urine Amorphous Sediment Present /HPF Urine Bacteria Few /HPF (0-FEW) Urine Hyaline Casts Few /HPF Urine Mucus Slight /LPF Urine Yeast Present /HPF Clostridium difficile Toxin (PCR) Negative (NEGATIVE) Glucose (Fingerstick) 137 mg/dL (70-99) 161 mg/dL (70-99) O2 Saturation 72 % (92-99) Arterial Blood pH 7.13 (7.35-7.45) Arterial Blood pCO2 at Patient Temp 130 mmHg (35-46) Arterial Blood pO2 at Patient Temp 47 mmHg (75-108) Arterial Blood HCO3 43 mmol/L (21-28) Arterial Blood Base Excess 10 mmol/L (-3-3) FiO2 100 Test 07/04/21 23:56 07/05/21 06:16 07/05/21 06:24 Glucose (Fingerstick) 161 mg/dL (70-99) 157 mg/dL (70-99) White Blood Count 9.8 x10^3/uL (4.0-11.0) Red Blood Count 3.10 x10^6/uL (3.50-5.40) Hemoglobin 7.6 g/dL (12.0-15.5) Hematocrit 24.1 % (36.0-47.0) Mean Corpuscular Volume 78 fL (79-100) Mean Corpuscular Hemoglobin 25 pg (25-35) Mean Corpuscular Hemoglobin Concent 31 g/dL (31-37) Red Cell Distribution Width 19.4 % (11.5-14.5) Platelet Count 211 x10^3/uL (140-400) Neutrophils (%) (Auto) 81 % (31-73) Lymphocytes (%) (Auto) 8 % (24-48) Monocytes (%) (Auto) 5 % (0-9) Eosinophils (%) (Auto) 6 % (0-3) Basophils (%) (Auto) 0 % (0-3) Neutrophils # (Auto) 7.9 x10^3/uL (1.8-7.7) Lymphocytes # (Auto) 0.8 x10^3/uL (1.0-4.8) Monocytes # (Auto) 0.4 x10^3/uL (0.0-1.1) Eosinophils # (Auto) 0.5 x10^3/uL (0.0-0.7) Basophils # (Auto) 0.0 x10^3/uL (0.0-0.2) Sodium Level 140 mmol/L (136-145) Potassium Level 3.8 mmol/L (3.5-5.1) Chloride Level 101 mmol/L (98-107) Carbon Dioxide Level 35 mmol/L (21-32) Anion Gap 4 (6-14) Blood Urea Nitrogen 18 mg/dL (7-20) Creatinine 0.8 mg/dL (0.6-1.0) Estimated GFR (Cockcroft-Gault) 79.4 Glucose Level 163 mg/dL (70-99) Calcium Level 8.3 mg/dL (8.5-10.1) Micro Sputum culture Proteus Blood culture gram-negative camilo ID pending Urine has yeast Objective Assessment IMPRESSION: 1. Fever improving 2. COVID-19 infection. 3. Pulmonary infiltrate. 4. Respiratory failure. 5. Leukocytosis. 6. Morbid obesity. 7 G neg camilo bacteremia Plan Plan of Care cont meropenem check cultures supportive care CT abd and pelvis Discussed with daughter CATIEROBERTO MD Jul 05, 2021 07:57
[2021-07-05 07:59] LABS: BASE EXCESS ABG 4 mmol/L (-3-3); HCO3 ABG 32 mmol/L (21-28); PO2 ABG 60 mmHg (75-108); SAT O2 ABG 89 % (92-99)
[2021-07-05 08:35] LABS: FIO2 ABG 100; PCO2 ABG 66 mmHg (35-46)
--- NOTE | 2021-07-05 08:54 | PDOC ---
[employer] PROGRESS NOTE Date of Service DOS: DATE: 07/05/21 TIME: 08:54 Chief Complaint Chief Complaint Acute hypoxic respiratory failure requiring BiPAP COVID-19 pneumonia Morbid obesity History of diabetes mellitus type 2 History of hypertension Severe malnutrition Septic shock Gram negative bacteremia - proteus Plan: Continue insulin to 10 units twice daily and continue low intensity RISS Appreciate pulmonary recommendations for mechanical ventilation Continue IV thiamine and vitamin C IV Solu-Medrol 40 mg daily Titrate O2 supplementation to maintain O2 saturation greater than 92% Completed IV Remdesivir Lovenox for DVT prophylaxis Protonix while ventilated GI prophylaxis ADA diet Full code Discussed with RN and SW Disposition ICU management as above Surrogate decision maker is the undesignated at this time History of Present Illness History of Present Illness Ms Pierce is a transfer from [facility] in [facility], 40-year-old female with past medical history of diabetes, hypertension, dyslipidemia and morbid obesity who complains of shortness of breath 1 week ago and went to urgent care and found out that she was positive for Covid. She came in at 5:00 in the morning at [facility] is very hypoxic and was found to be her oxygen saturation was 68% she was put on a nonrebreather 15 L and she was improved to 90 to 93%. Patient is [id number]. Patient is a poor historian. She does not know what kind of medication she takes for her medical history. 06/15: In the ICU. She was face time talking with family members. She was still on nonrebreather. Pulmonary consulted. 06/16: On Vapotherm. No major complaints. 06/17: Remains on Vapotherm although O2 requirement decreasing. Continue current plan. 06/18: On 40 L Vapotherm and now requiring NRB in addition. Afebrile and on broad-spectrum antibiotics. Remdesivir finishes today. 06/19: Intubated overnight in ICU. Afebrile. Currently breathing FiO2 100%. Completed remdesivir. We will continue IV steroids and antibiotics. 06/20: Low-grade fever overnight (T-max 99.7 F). Remains on vent, FiO2 90%, PEEP 10. Continue treatment with IV steroids and antibiotics. 06/21: Afebrile. On vent with FiO2 80%, PEEP 10. Cont treatment with antibiotics steroids total of 10 day course (steroid taper to begin 06/24). 06/22: Afebrile. Remains on ventilator with FiO2 70%, PEEP 10. Completed remdesivir. Continue antibiotics, steroids with slow taper. 06/23: Afebrile. On vent with FiO2 of 70, PEEP 10. Continue antibiotics for diffuse bilateral opacities. Continue steroids with slow taper 06/24: Afebrile. On vent with FiO2 60%, PEEP 9. Continue antibiotics. Today is day 10 of steroids; will begin Solu-Medrol taper tomorrow. 06/25: On vent with FiO2 65, PEEP 9. Afebrile. Completed 10 days of steroids; will begin Solu-Medrol taper today at 60 mg twice daily. 06/26: Intubated and sedated vent at 20/450/70/9. Insulin dose to 10 units twice daily. Solu-Medrol decreased to 40 mg daily. Cont with IV Lasix 06/27: Intubated and sedated. Vent settings at assist control at saturating 97%. Vent settings set at 16/80/9. ABG at 7.4 /58/32. 06/28: No acute events overnight. Patient continues to be intubated and sedated. Saturating 90% on assist control with vent settings of 16/80/9. 06/29: No acute events overnight patient saturating 98% on vent settings of 10/80/9. 06/30: Patient did have hypotensive episode during the day which required a 500 NS bolus. Possibly needing vasopressors. pressure support/80/9. 07/01: No acute events overnight. Patient saturating 99% on vent settings of 14 pressure support/80/9. Urine output of 3.6 L in the last 24 hours. 07/02: Paralyzed for vent dysynchrony. Saturating 100% on 14/70/9. Fever of 101.1 this morning. 07/03: Febrile 101.1 F. 70% FiO2 and 9 PEEP. Still requiring vecuronium for ve nt dyssynchrony. ID consulted for sepsis, ?VAP 07/04: T-max 102.6 F last 24 hours, afebrile overnight. Peripheral culture and culture from PICC and sputum and urine culture obtained. Now on meropenem and Zyvox. More hypoxic, ABG 7.4 /48, requiring FiO2 90% PEEP of 9 Afebrile overnight. ABG 7.3/66/60, now FiO2 100% PEEP of 12. Sputum and blood culture. Proteus mirabilis sensitivities available for sputum culture. Urine with some yeast. Daughter bedside this morning noted she is thinking of withdrawing care. Discussed with patient's sister and nephew bedside patient has been aggressively cared for will continue current care. Vitals/I&O Vitals/I&O: Vital Signs Date Time Temp Pulse Resp B/P (MAP) Pulse Ox O2 Delivery O2 Flow Rate FiO2 07/05/21 08:00 Mechanical Ventilator 07/05/21 07:47 96 07/05/21 06:00 92 15 104/49 (67) 07/05/21 04:00 99.9 99.9 07/05/21 01:29 40.0 I & O 07/04/21 07/04/21 07/05/21 15:00 23:00 07:00 Intake Total 240 ml 1692 ml 3955.4 ml Output Total 1300 ml 425 ml 240 ml Balance -1060 ml 1267 ml 3715.4 ml Physical Exam Physical Exam: GENERAL: Sedated, orally intubated female, not in distress. VITAL SIGNS: Stable. HEENT: Both pupils are round and reacting. No conjunctival lesion. Mouth cannot be visualized, has orally intubated. NECK: Supple, no JVP, no lymphadenopathy. LUNGS: Clear. HEART: S1, S2 regular. ABDOMEN: Soft, nontender, no organomegaly. EXTREMITIES: No edema, cyanosis. SKIN: Unremarkable. NEUROLOGIC: The patient is sedated, intubated, neurologically unable to assess. General: No acute distress, Other (Intubated and sedated) Heart: Regular rate, Normal S1, Normal S2 Lungs: Crackles Abdomen: Normal bowel sounds, Soft Extremities: No clubbing, No edema, Normal pulses Skin: No rashes, No significant lesion Labs Labs: Laboratory Tests Test 07/04/21 10:50 07/04/21 13:01 07/04/21 18:12 07/04/21 21:45 Urine Collection Type Unknown Urine Color Yellow Urine Clarity Clear Urine pH 5.0 (<5.0-8.0) Urine Specific [place] 1.010 (1.000-1.030) Urine Protein Negative mg/dL (NEG-TRACE) Urine Glucose (UA) Negative mg/dL (NEG) Urine Ketones (Stick) Negative mg/dL (NEG) Urine Blood Negative (NEG) Urine Nitrite Negative (NEG) Urine Bilirubin Negative (NEG) Urine Urobilinogen Dipstick 2.0 mg/dL (0.2 mg/dL) Urine Leukocyte Esterase Moderate (NEG) Urine RBC Occ /HPF (0-2) Urine WBC 11-20 /HPF (0-4) Urine Squamous Epithelial Cells Mod /LPF Urine Amorphous Sediment Present /HPF Urine Bacteria Few /HPF (0-FEW) Urine Hyaline Casts Few /HPF Urine Mucus Slight /LPF Urine Yeast Present /HPF Clostridium difficile Toxin (PCR) Negative (NEGATIVE) Glucose (Fingerstick) 137 mg/dL (70-99) 161 mg/dL (70-99) O2 Saturation 72 % (92-99) Arterial Blood pH 7.13 (7.35-7.45) Arterial Blood pCO2 at Patient Temp 130 mmHg (35-46) Arterial Blood pO2 at Patient Temp 47 mmHg (75-108) Arterial Blood HCO3 43 mmol/L (21-28) Arterial Blood Base Excess 10 mmol/L (-3-3) FiO2 100 Test 07/04/21 23:56 07/05/21 06:16 07/05/21 06:24 07/05/21 07:54 Glucose (Fingerstick) 161 mg/dL (70-99) 157 mg/dL (70-99) White Blood Count 9.8 x10^3/uL (4.0-11.0) Red Blood Count 3.10 x10^6/uL (3.50-5.40) Hemoglobin 7.6 g/dL (12.0-15.5) Hematocrit 24.1 % (36.0-47.0) Mean Corpuscular Volume 78 fL (79-100) Mean Corpuscular Hemoglobin 25 pg (25-35) Mean Corpuscular Hemoglobin Concent 31 g/dL (31-37) Red Cell Distribution Width 19.4 % (11.5-14.5) Platelet Count 211 x10^3/uL (140-400) Neutrophils (%) (Auto) 81 % (31-73) Lymphocytes (%) (Auto) 8 % (24-48) Monocytes (%) (Auto) 5 % (0-9) Eosinophils (%) (Auto) 6 % (0-3) Basophils (%) (Auto) 0 % (0-3) Neutrophils # (Auto) 7.9 x10^3/uL (1.8-7.7) Lymphocytes # (Auto) 0.8 x10^3/uL (1.0-4.8) Monocytes # (Auto) 0.4 x10^3/uL (0.0-1.1) Eosinophils # (Auto) 0.5 x10^3/uL (0.0-0.7) Basophils # (Auto) 0.0 x10^3/uL (0.0-0.2) Sodium Level 140 mmol/L (136-145) Potassium Level 3.8 mmol/L (3.5-5.1) Chloride Level 101 mmol/L (98-107) Carbon Dioxide Level 35 mmol/L (21-32) Anion Gap 4 (6-14) Blood Urea Nitrogen 18 mg/dL (7-20) Creatinine 0.8 mg/dL (0.6-1.0) Estimated GFR (Cockcroft-Gault) 79.4 Glucose Level 163 mg/dL (70-99) Calcium Level 8.3 mg/dL (8.5-10.1) O2 Saturation 89 % (92-99) Arterial Blood pH 7.30 (7.35-7.45) Arterial Blood pCO2 at Patient Temp 66 mmHg (35-46) Arterial Blood pO2 at Patient Temp 60 mmHg (75-108) Arterial Blood HCO3 32 mmol/L (21-28) Arterial Blood Base Excess 4 mmol/L (-3-3) FiO2 100 Comment Review of Relevant I have reviewed the following items man (where applicable) has been applied. Medications: Current Medications Medications (Trade) Dose Ordered Sig/Jun Route PRN Reason Start Time Stop Time Status Last Admin Dose Admin Meropenem 1 gm/ Sodium Chloride 100 ml @ 200 mls/hr Q8HRS IV 07/04/21 14:00 07/05/21 05:52 Sodium Chloride 1,000 ml @ 1,000 mls/hr 1X ONCE IV 07/05/21 03:15 07/05/21 04:14 DC 07/05/21 03:23 Norepinephrine Bitartrate 8 mg/ Dextrose 258 ml @ 25.639 mls/ hr CONT PRN IV PER PROTOCOL 07/05/21 04:15 07/05/21 04:25 Justifications for Admission Other Justification Acute hypoxic respiratory failure and Covid pneumonia DUNG MCDONOUGH MD Jul 05, 2021 08:54
--- NOTE | 2021-07-05 09:17 | PDOC ---
PULMONARY PROGRESS NOTES DATE: 07/05/21 TIME: 09:12 Subjective Patient with worsening oxygenation last night. Now on pressure control of 40. PEEP increased to 12 and 100% FiO2. Afebrile Low-grade fever and gram-negative rods in the blood Vitals Vital Signs Date Time Temp Pulse Resp B/P (MAP) Pulse Ox O2 Delivery O2 Flow Rate FiO2 07/05/21 08:00 Mechanical Ventilator 07/05/21 07:47 96 07/05/21 06:00 92 15 104/49 (67) 07/05/21 04:00 99.9 99.9 07/05/21 01:29 40.0 Comments ros unable to obtain on vent sedated Lungs: Crackles Cardiovascular: S1 Abdomen: Soft, Other (Obese) Extremities: No Edema Skin: Warm Labs Laboratory Tests Test 07/03/21 12:05 07/03/21 17:38 07/04/21 00:00 07/04/21 05:55 Glucose (Fingerstick) 204 mg/dL (70-99) 191 mg/dL (70-99) 165 mg/dL (70-99) White Blood Count 7.1 x10^3/uL (4.0-11.0) Red Blood Count 3.05 x10^6/uL (3.50-5.40) Hemoglobin 7.7 g/dL (12.0-15.5) Hematocrit 23.4 % (36.0-47.0) Mean Corpuscular Volume 77 fL (79-100) Mean Corpuscular Hemoglobin 25 pg (25-35) Mean Corpuscular Hemoglobin Concent 33 g/dL (31-37) Red Cell Distribution Width 19.3 % (11.5-14.5) Platelet Count 122 x10^3/uL (140-400) Neutrophils (%) (Auto) 77 % (31-73) Lymphocytes (%) (Auto) 12 % (24-48) Monocytes (%) (Auto) 6 % (0-9) Eosinophils (%) (Auto) 6 % (0-3) Basophils (%) (Auto) 0 % (0-3) Neutrophils # (Auto) 5.4 x10^3/uL (1.8-7.7) Lymphocytes # (Auto) 0.8 x10^3/uL (1.0-4.8) Monocytes # (Auto) 0.4 x10^3/uL (0.0-1.1) Eosinophils # (Auto) 0.4 x10^3/uL (0.0-0.7) Basophils # (Auto) 0.0 x10^3/uL (0.0-0.2) Sodium Level 139 mmol/L (136-145) Potassium Level 3.5 mmol/L (3.5-5.1) Chloride Level 101 mmol/L (98-107) Carbon Dioxide Level 38 mmol/L (21-32) Anion Gap 0 (6-14) Blood Urea Nitrogen 16 mg/dL (7-20) Creatinine 0.4 mg/dL (0.6-1.0) Estimated GFR (Cockcroft-Gault) 176.8 BUN/Creatinine Ratio 40 (6-20) Glucose Level 110 mg/dL (70-99) Calcium Level 8.5 mg/dL (8.5-10.1) Total Bilirubin 0.8 mg/dL (0.2-1.0) Aspartate Amino Transf (AST/SGOT) 23 U/L (15-37) Alanine Aminotransferase (ALT/SGPT) 19 U/L (14-59) Alkaline Phosphatase 95 U/L (46-116) Total Protein 5.6 g/dL (6.4-8.2) Albumin 1.5 g/dL (3.4-5.0) Albumin/Globulin Ratio 0.4 (1.0-1.7) Procalcitonin 6.17 ng/mL (0.00-0.10) Test 07/04/21 06:08 07/04/21 07:13 07/04/21 10:50 07/04/21 13:01 Glucose (Fingerstick) 115 mg/dL (70-99) 137 mg/dL (70-99) O2 Saturation 85 % (92-99) Arterial Blood pH 7.41 (7.35-7.45) Arterial Blood pCO2 at Patient Temp 57 mmHg (35-46) Arterial Blood pO2 at Patient Temp 48 mmHg (75-108) Arterial Blood HCO3 35 mmol/L (21-28) Arterial Blood Base Excess 9 mmol/L (-3-3) FiO2 70 Urine Collection Type Unknown Urine Color Yellow Urine Clarity Clear Urine pH 5.0 (<5.0-8.0) Urine Specific [place] 1.010 (1.000-1.030) Urine Protein Negative mg/dL (NEG-TRACE) Urine Glucose (UA) Negative mg/dL (NEG) Urine Ketones (Stick) Negative mg/dL (NEG) Urine Blood Negative (NEG) Urine Nitrite Negative (NEG) Urine Bilirubin Negative (NEG) Urine Urobilinogen Dipstick 2.0 mg/dL (0.2 mg/dL) Urine Leukocyte Esterase Moderate (NEG) Urine RBC Occ /HPF (0-2) Urine WBC 11-20 /HPF (0-4) Urine Squamous Epithelial Cells Mod /LPF Urine Amorphous Sediment Present /HPF Urine Bacteria Few /HPF (0-FEW) Urine Hyaline Casts Few /HPF Urine Mucus Slight /LPF Urine Yeast Present /HPF Clostridium difficile Toxin (PCR) Negative (NEGATIVE) Test 07/04/21 18:12 07/04/21 21:45 07/04/21 23:56 07/05/21 06:16 Glucose (Fingerstick) 161 mg/dL (70-99) 161 mg/dL (70-99) O2 Saturation 72 % (92-99) Arterial Blood pH 7.13 (7.35-7.45) Arterial Blood pCO2 at Patient Temp 130 mmHg (35-46) Arterial Blood pO2 at Patient Temp 47 mmHg (75-108) Arterial Blood HCO3 43 mmol/L (21-28) Arterial Blood Base Excess 10 mmol/L (-3-3) FiO2 100 White Blood Count 9.8 x10^3/uL (4.0-11.0) Red Blood Count 3.10 x10^6/uL (3.50-5.40) Hemoglobin 7.6 g/dL (12.0-15.5) Hematocrit 24.1 % (36.0-47.0) Mean Corpuscular Volume 78 fL (79-100) Mean Corpuscular Hemoglobin 25 pg (25-35) Mean Corpuscular Hemoglobin Concent 31 g/dL (31-37) Red Cell Distribution Width 19.4 % (11.5-14.5) Platelet Count 211 x10^3/uL (140-400) Neutrophils (%) (Auto) 81 % (31-73) Lymphocytes (%) (Auto) 8 % (24-48) Monocytes (%) (Auto) 5 % (0-9) Eosinophils (%) (Auto) 6 % (0-3) Basophils (%) (Auto) 0 % (0-3) Neutrophils # (Auto) 7.9 x10^3/uL (1.8-7.7) Lymphocytes # (Auto) 0.8 x10^3/uL (1.0-4.8) Monocytes # (Auto) 0.4 x10^3/uL (0.0-1.1) Eosinophils # (Auto) 0.5 x10^3/uL (0.0-0.7) Basophils # (Auto) 0.0 x10^3/uL (0.0-0.2) Sodium Level 140 mmol/L (136-145) Potassium Level 3.8 mmol/L (3.5-5.1) Chloride Level 101 mmol/L (98-107) Carbon Dioxide Level 35 mmol/L (21-32) Anion Gap 4 (6-14) Blood Urea Nitrogen 18 mg/dL (7-20) Creatinine 0.8 mg/dL (0.6-1.0) Estimated GFR (Cockcroft-Gault) 79.4 Glucose Level 163 mg/dL (70-99) Calcium Level 8.3 mg/dL (8.5-10.1) Test 07/05/21 06:24 07/05/21 07:54 Glucose (Fingerstick) 157 mg/dL (70-99) O2 Saturation 89 % (92-99) Arterial Blood pH 7.30 (7.35-7.45) Arterial Blood pCO2 at Patient Temp 66 mmHg (35-46) Arterial Blood pO2 at Patient Temp 60 mmHg (75-108) Arterial Blood HCO3 32 mmol/L (21-28) Arterial Blood Base Excess 4 mmol/L (-3-3) FiO2 100 Laboratory Tests Test 07/04/21 10:50 07/04/21 13:01 07/04/21 18:12 07/04/21 21:45 Urine Collection Type Unknown Urine Color Yellow Urine Clarity Clear Urine pH 5.0 (<5.0-8.0) Urine Specific [place] 1.010 (1.000-1.030) Urine Protein Negative mg/dL (NEG-TRACE) Urine Glucose (UA) Negative mg/dL (NEG) Urine Ketones (Stick) Negative mg/dL (NEG) Urine Blood Negative (NEG) Urine Nitrite Negative (NEG) Urine Bilirubin Negative (NEG) Urine Urobilinogen Dipstick 2.0 mg/dL (0.2 mg/dL) Urine Leukocyte Esterase Moderate (NEG) Urine RBC Occ /HPF (0-2) Urine WBC 11-20 /HPF (0-4) Urine Squamous Epithelial Cells Mod /LPF Urine Amorphous Sediment Present /HPF Urine Bacteria Few /HPF (0-FEW) Urine Hyaline Casts Few /HPF Urine Mucus Slight /LPF Urine Yeast Present /HPF Clostridium difficile Toxin (PCR) Negative (NEGATIVE) Glucose (Fingerstick) 137 mg/dL (70-99) 161 mg/dL (70-99) O2 Saturation 72 % (92-99) Arterial Blood pH 7.13 (7.35-7.45) Arterial Blood pCO2 at Patient Temp 130 mmHg (35-46) Arterial Blood pO2 at Patient Temp 47 mmHg (75-108) Arterial Blood HCO3 43 mmol/L (21-28) Arterial Blood Base Excess 10 mmol/L (-3-3) FiO2 100 Test 07/04/21 23:56 07/05/21 06:16 07/05/21 06:24 07/05/21 07:54 Glucose (Fingerstick) 161 mg/dL (70-99) 157 mg/dL (70-99) White Blood Count 9.8 x10^3/uL (4.0-11.0) Red Blood Count 3.10 x10^6/uL (3.50-5.40) Hemoglobin 7.6 g/dL (12.0-15.5) Hematocrit 24.1 % (36.0-47.0) Mean Corpuscular Volume 78 fL (79-100) Mean Corpuscular Hemoglobin 25 pg (25-35) Mean Corpuscular Hemoglobin Concent 31 g/dL (31-37) Red Cell Distribution Width 19.4 % (11.5-14.5) Platelet Count 211 x10^3/uL (140-400) Neutrophils (%) (Auto) 81 % (31-73) Lymphocytes (%) (Auto) 8 % (24-48) Monocytes (%) (Auto) 5 % (0-9) Eosinophils (%) (Auto) 6 % (0-3) Basophils (%) (Auto) 0 % (0-3) Neutrophils # (Auto) 7.9 x10^3/uL (1.8-7.7) Lymphocytes # (Auto) 0.8 x10^3/uL (1.0-4.8) Monocytes # (Auto) 0.4 x10^3/uL (0.0-1.1) Eosinophils # (Auto) 0.5 x10^3/uL (0.0-0.7) Basophils # (Auto) 0.0 x10^3/uL (0.0-0.2) Sodium Level 140 mmol/L (136-145) Potassium Level 3.8 mmol/L (3.5-5.1) Chloride Level 101 mmol/L (98-107) Carbon Dioxide Level 35 mmol/L (21-32) Anion Gap 4 (6-14) Blood Urea Nitrogen 18 mg/dL (7-20) Creatinine 0.8 mg/dL (0.6-1.0) Estimated GFR (Cockcroft-Gault) 79.4 Glucose Level 163 mg/dL (70-99) Calcium Level 8.3 mg/dL (8.5-10.1) O2 Saturation 89 % (92-99) Arterial Blood pH 7.30 (7.35-7.45) Arterial Blood pCO2 at Patient Temp 66 mmHg (35-46) Arterial Blood pO2 at Patient Temp 60 mmHg (75-108) Arterial Blood HCO3 32 mmol/L (21-28) Arterial Blood Base Excess 4 mmol/L (-3-3) FiO2 100 Medications Active Scripts Medications Dose Route/Sig Max Daily Dose Days Date Category Cyclobenzaprine Hcl 10 Mg Tablet 10 Mg PO TID 06/15/21 Reported Meloxicam 15 Mg Tablet 15 Mg PO DAILY 06/15/21 Reported Fluticasone Propionate Nasal Cable (Fluticasone Propionate) 16 Gm Cable.susp 1 Cable NS DAILY 06/15/21 Reported Loratadine 10 Mg Tablet 10 Mg PO DAILY 06/15/21 Reported Furosemide 20 Mg Tablet 20 Mg PO DAILY 06/15/21 Reported Gabapentin (Gabapentin) 300 Mg Capsule 300 Mg PO TID 06/15/21 Reported Gabapentin (Gabapentin) 300 Mg Capsule 300 Mg PO TID 06/15/21 Reported Lisinopril 5 Mg Tablet 1 Tab PO DAILY 06/15/21 Reported Metformin Hcl 500 Mg Tablet 500 Mg PO BIDWMEALS 06/15/21 Reported Ozempic (Semaglutide) 0.25 Mg/0.2 Ml Pen.injctr 0.25 Mg SQ WEEKLY 06/15/21 Reported Comments Chest x-ray reviewed 07/04/2021. With diffuse bilateral infiltrates consistent with ARDS Chest x-ray reviewed 06/30/2021 Unchanged bilateral diffuse interstitial infiltrates Impression . 1. Acute hypoxic respiratory failure secondary to ARDS/COVID-19 infection, worsening intubated 06/19/21. Oxygen requirement significantly worsened. Now on pressure control of 40, PEEP of 12 and 100% FiO2. 2. Abnormal CT of chest secondary to COVID-19 infection/ARDS 3. Diabetes type 2 with hyperglycemia 4. Hypertension--- blood pressure has been labile. 5. Hyperlipdemia 6. Obesity 7. Low-grade fever and gram-negative rods in the blood. New sepsis 8. Proteus mirabilis in the sputum. Plan . Updated 07/05/21 Oxygen requirement has significantly worsened. Now on pressure control of 40. I:E. ratio 1 :1. 100% FiO2 and 12 of PEEP. Chest x-ray with whiteout both lungs consistent with severe ARDS. Continue current vent support, Follow ABG/CXR-reviewed. S/P remdesivir Status post steroids treatment Gram-negative rods in the blood. Follow infectious disease recommendations. Follow final cultures. Proteus mirabilis in the sputum. Continue present antibiotics per ID recommendation Continue zinc/vitamin C Try extra Lasix IV today. Continue low-dose Levophed. Continue tube feeding for nutritional support DVT/GI prophylaxis: Lovenox Discussed with RN and RT Full code Discussed with entire family at the bedside. Critical care time 35 minutes Updated 07/04/21 Continue current vent support, setting reviewed assist control mode. Remains on 90% FiO2 and 9 of PEEP. abg reviewed titrate peep fio2 as tolerated . Follow ABG/CXR-reviewed. Make changes as needed. S/P remdesivir Status post steroids treatment Gram-negative rods in the blood. Follow infectious disease recommendations. Follow final cultures. Continue zinc/vitamin C As needed NS bolus to keep MAP greater than 65 Continue tube feeding for nutritional support DVT/GI prophylaxis: Lovenox Discussed with RN and RT Full code Updated 07/03/21 Continue current vent support, setting reviewed assist control mode. Remains on 70% FiO2 and 9 of PEEP. abg reviewed improve po2 titrate peep fio2 as tolerated need to taper off vec gtt if able Follow ABG/CXR-reviewed. Make changes as needed. S/P remdesivir Status post steroids treatment Continue zinc/vitamin C As needed NS bolus to keep MAP greater than 65 Continue tube feeding for nutritional support DVT/GI prophylaxis: Lovenox Discussed with RN and RT Full code Updated 07/02/21 Continue current vent support, setting reviewed assist control mode. Remains on 80% FiO2 and 9 of PEEP. abg reviewed improve po2 titrate peep fio2 as tolerated need to taper off vec gtt if able Follow ABG/CXR-reviewed. Make changes as needed. S/P remdesivir Status post steroids treatment Continue zinc/vitamin C As needed NS bolus to keep MAP greater than 65 Continue tube feeding for nutritional support DVT/GI prophylaxis: Lovenox Discussed with RN and RT Full code Updated 07/01/21 Continue current vent support, setting reviewed assist control mode. Remains on 80% FiO2 and 9 of PEEP. titrate peep fio2 as tolerated Follow ABG/CXR-reviewed. Make changes as needed. S/P remdesivir Status post steroids treatment Continue zinc/vitamin C As needed NS bolus to keep MAP greater than 65 Continue tube feeding for nutritional support DVT/GI prophylaxis: Lovenox Discussed with RN and RT Full code Updated 06/30/21 Continue current vent support, patient is now on assist control mode. Oxygen requirement unchanged. Remains on 80% FiO2 and 9 of PEEP. Follow ABG/CXR-reviewed. Make changes as needed. S/P remdesivir Status post steroids treatment Continue zinc/vitamin C As needed NS bolus to keep MAP greater than 65 Continue tube feeding for nutritional support DVT/GI prophylaxis: Lovenox Discussed with RN and RT Full code Critical care time 30 minutes Updated 06/29/21 Continue current vent support, currently pressure control mode of (37) 16/37/80%/9 Follow ABG/CXR-reduce rate to 14 today S/P remdesivir Continue zinc/vitamin C Give 500 cc NS bolus if not improved start vasopressor medications to keep MAP greater than 65 Continue tube feeding for nutritional support DVT/GI prophylaxis: Lovenox Discussed with RN and RT Full code Critical care time 30 minutes NICOLETTE MORALES MD Jul 05, 2021 09:17
[2021-07-05] MEDS: FUROSEMIDE 40 MG/4 ML VIAL. IVP SCH (09:50)
[2021-07-05] MEDS: INSULIN GLARGINE SYRINGE. SQ SCH ×2 (09:52→20:29)
--- NOTE | 2021-07-05 16:07 | NUR ---
SS following up with discharge planning. SS reviewed pt chart and discussed with pt RN. Pt is currently on the vent at 100%. COVID19 recovered. Pt on IV Meropenem. Pt on Vec, Versed, Fentanyl, Propofol, Levophed, and IV Lasix. Not stable. SS will continue to follow for discharge planning.
[2021-07-06] VITALS (28 sets, daily range): BP systolic 79–179; BP diastolic 40–86
[2021-07-06] MEDS: DEXMEDETOMIDINE 400 MCG in IV NORMAL SALINE 100ML 96 ML IV PRN ×7 (00:10→21:33)
[2021-07-06] MEDS: PROPOFOL 100 ML IV PRN ×6 (01:50→22:58)
[2021-07-06] MEDS: NORCURON - VECURONIUM 50 MG in IV NORMAL SALINE 50ML 50 ML IV PRN ×3 (03:52→19:59)
[2021-07-06] MEDS: MIDAZOLAM 100mg/100ml NS BAG 100 ML IV PRN ×3 (03:55→17:25)
[2021-07-06] MEDS: MEROPENEM 1 GM in IV NORMAL SALINE 100ML 100 ML IV SCH ×3 (06:03→21:37)
[2021-07-06] MEDS: INSULIN LISPRO 300 UNITS/3 ML VIAL. SQ SCH ×4 (06:34→18:00)
--- NOTE | 2021-07-06 06:55 | PDOC ---
Infectious Disease Note Subjective Subjective pt is sedated on vent ROS ROS no n/v/ Vital Sign Vital Signs Vital Signs Date Time Temp Pulse Resp B/P (MAP) Pulse Ox O2 Delivery O2 Flow Rate FiO2 07/06/21 06:00 70 18 95/41 (59) 98 Ventilator 07/06/21 04:00 99.0 99.0 07/06/21 00:39 40.0 Physical Exam PHYSICAL EXAM GENERAL: Sedated, orally intubated female, not in distress. VITAL SIGNS: Stable. HEENT: Both pupils are round and reacting. No conjunctival lesion. Mouth cannot be visualized, has orally intubated. NECK: Supple, no JVP, no lymphadenopathy. LUNGS: Clear. HEART: S1, S2 regular. ABDOMEN: Soft, nontender, no organomegaly. EXTREMITIES: No edema, cyanosis. SKIN: Unremarkable. NEUROLOGIC: The patient is sedated, intubated, neurologically unable to assess. Labs Lab Laboratory Tests Test 07/05/21 07:54 07/05/21 12:32 07/05/21 17:46 07/06/21 00:21 O2 Saturation 89 % (92-99) Arterial Blood pH 7.30 (7.35-7.45) Arterial Blood pCO2 at Patient Temp 66 mmHg (35-46) Arterial Blood pO2 at Patient Temp 60 mmHg (75-108) Arterial Blood HCO3 32 mmol/L (21-28) Arterial Blood Base Excess 4 mmol/L (-3-3) FiO2 100 Glucose (Fingerstick) 148 mg/dL (70-99) 153 mg/dL (70-99) 127 mg/dL (70-99) Test 07/06/21 06:29 Glucose (Fingerstick) 158 mg/dL (70-99) Micro Sputum culture Proteus Blood culture gram-negative camilo ID pending Urine has yeast Objective Assessment IMPRESSION: 1. Fever improving 2. COVID-19 infection. 3. Pulmonary infiltrate. 4. Respiratory failure. 5. Leukocytosis. 6. Morbid obesity. 7 G neg camilo bacteremia Plan Plan of Care cont meropenem check cultures supportive care CT abd and pelvis pending ROBERTO HADDAD MD Jul 06, 2021 06:54
[2021-07-06 07:29] LABS: BASE EXCESS ABG 7 mmol/L (-3-3); HCO3 ABG 33 mmol/L (21-28); PCO2 ABG 57 mmHg (35-46); PO2 ABG 61 mmHg (75-108); SAT O2 ABG 90 % (92-99)
[2021-07-06] MEDS: PANTOPRAZOLE IV PUSH 40 MG VIAL. IVP SCH (07:30)
--- NOTE | 2021-07-06 07:51 | PDOC ---
[employer] PROGRESS NOTE Date of Service DOS: DATE: 07/06/21 TIME: 07:49 Chief Complaint Chief Complaint Acute hypoxic respiratory failure requiring BiPAP COVID-19 pneumonia Morbid obesity History of diabetes mellitus type 2 History of hypertension Severe malnutrition Septic shock Gram negative bacteremia - proteus Plan: Continue insulin to 10 units twice daily and continue low intensity RISS Appreciate pulmonary recommendations for mechanical ventilation Continue IV thiamine and vitamin C IV Solu-Medrol 40 mg daily Titrate O2 supplementation to maintain O2 saturation greater than 92% Completed IV Remdesivir Lovenox for DVT prophylaxis Protonix while ventilated GI prophylaxis ADA diet Full code Discussed with RN and SW Disposition ICU management as above Surrogate decision maker is the undesignated at this time History of Present Illness History of Present Illness Ms Pierce is a transfer from [facility] in [facility], 40-year-old female with past medical history of diabetes, hypertension, dyslipidemia and morbid obesity who complains of shortness of breath 1 week ago and went to urgent care and found out that she was positive for Covid. She came in at 5:00 in the morning at [facility] is very hypoxic and was found to be her oxygen saturation was 68% she was put on a nonrebreather 15 L and she was improved to 90 to 93%. Patient is [id number]. Patient is a poor historian. She does not know what kind of medication she takes for her medical history. 06/15: In the ICU. She was face time talking with family members. She was still on nonrebreather. Pulmonary consulted. 06/16: On Vapotherm. No major complaints. 06/17: Remains on Vapotherm although O2 requirement decreasing. Continue current plan. 06/18: On 40 L Vapotherm and now requiring NRB in addition. Afebrile and on broad-spectrum antibiotics. Remdesivir finishes today. 06/19: Intubated overnight in ICU. Afebrile. Currently breathing FiO2 100%. Completed remdesivir. We will continue IV steroids and antibiotics. 06/20: Low-grade fever overnight (T-max 99.7 F). Remains on vent, FiO2 90%, PEEP 10. Continue treatment with IV steroids and antibiotics. 06/21: Afebrile. On vent with FiO2 80%, PEEP 10. Cont treatment with antibiotics steroids total of 10 day course (steroid taper to begin 06/24). 06/22: Afebrile. Remains on ventilator with FiO2 70%, PEEP 10. Completed remdesivir. Continue antibiotics, steroids with slow taper. 06/23: Afebrile. On vent with FiO2 of 70, PEEP 10. Continue antibiotics for diffuse bilateral opacities. Continue steroids with slow taper 06/24: Afebrile. On vent with FiO2 60%, PEEP 9. Continue antibiotics. Today is day 10 of steroids; will begin Solu-Medrol taper tomorrow. 06/25: On vent with FiO2 65, PEEP 9. Afebrile. Completed 10 days of steroids; will begin Solu-Medrol taper today at 60 mg twice daily. 06/26: Intubated and sedated vent at 20/450/70/9. Insulin dose to 10 units twice daily. Solu-Medrol decreased to 40 mg daily. Cont with IV Lasix 06/27: Intubated and sedated. Vent settings at assist control at saturating 97%. Vent settings set at 16/80/9. ABG at 7.4 /58/32. 06/28: No acute events overnight. Patient continues to be intubated and sedated. Saturating 90% on assist control with vent settings of 16/80/9. 06/29: No acute events overnight patient saturating 98% on vent settings of 10/80/9. 06/30: Patient did have hypotensive episode during the day which required a 500 NS bolus. Possibly needing vasopressors. pressure support/80/9. 07/01: No acute events overnight. Patient saturating 99% on vent settings of 14 pressure support/80/9. Urine output of 3.6 L in the last 24 hours. 07/02: Paralyzed for vent dysynchrony. Saturating 100% on 14/70/9. Fever of 101.1 this morning. 07/03: Febrile 101.1 F. 70% FiO2 and 9 PEEP. Still requiring vecuronium for ve nt dyssynchrony. ID consulted for sepsis, ?VAP 07/04: T-max 102.6 F last 24 hours, afebrile overnight. Peripheral culture and culture from PICC and sputum and urine culture obtained. Now on meropenem and Zyvox. More hypoxic, ABG 7.4 /48, requiring FiO2 90% PEEP of 9 07/05: Afebrile. ABG 7.3/66/60, FiO2 100% PEEP of 12. Sputum and blood cx proteus mirabilis. Urine with some yeast. Daughter bedside this morning noted she is thinking of withdrawing care. D/w patient's sister and nephew bedside patient has been aggressively cared for cont current care. 07/06: Afebrile overnight. Sedated on ventilator FiO2 100% PEEP 12, O2 saturation 90% on pulse oximetry, still requiring vecuronium for vent dyssynchrony. Labs pending. Vitals/I&O Vitals/I&O: Vital Signs Date Time Temp Pulse Resp B/P (MAP) Pulse Ox O2 Delivery O2 Flow Rate FiO2 07/06/21 07:11 98 Ventilator 07/06/21 06:00 70 18 95/41 (59) 07/06/21 04:00 99.0 99.0 07/06/21 00:39 40.0 I & O 07/05/21 07/05/21 07/06/21 15:00 23:00 07:00 Intake Total 240 ml 2627 ml 1159.7 ml Output Total 2550 ml 665 ml 565 ml Balance -2310 ml 1962 ml 594.7 ml Physical Exam Physical Exam: GENERAL: Sedated, orally intubated female, not in distress. VITAL SIGNS: Stable. HEENT: Both pupils are round and reacting. No conjunctival lesion. Mouth cannot be visualized, has orally intubated. NECK: Supple, no JVP, no lymphadenopathy. LUNGS: Clear. HEART: S1, S2 regular. ABDOMEN: Soft, nontender, no organomegaly. EXTREMITIES: No edema, cyanosis. SKIN: Unremarkable. NEUROLOGIC: The patient is sedated, intubated, neurologically unable to assess. General: No acute distress, Other (Intubated and sedated) Heart: Regular rate, Normal S1, Normal S2 Lungs: Crackles Abdomen: Normal bowel sounds, Soft Extremities: No clubbing, No edema, Normal pulses Skin: No rashes, No significant lesion Labs Labs: Laboratory Tests Test 07/05/21 07:54 07/05/21 12:32 07/05/21 17:46 07/06/21 00:21 O2 Saturation 89 % (92-99) Arterial Blood pH 7.30 (7.35-7.45) Arterial Blood pCO2 at Patient Temp 66 mmHg (35-46) Arterial Blood pO2 at Patient Temp 60 mmHg (75-108) Arterial Blood HCO3 32 mmol/L (21-28) Arterial Blood Base Excess 4 mmol/L (-3-3) FiO2 100 Glucose (Fingerstick) 148 mg/dL (70-99) 153 mg/dL (70-99) 127 mg/dL (70-99) Test 07/06/21 06:29 Glucose (Fingerstick) 158 mg/dL (70-99) Comment Review of Relevant I have reviewed the following items man (where applicable) has been applied. Justifications for Admission Other Justification Acute hypoxic respiratory failure and Covid pneumonia DUNG MCDONOUGH MD Jul 06, 2021 07:51
[2021-07-06] MEDS ORDERED: ALBUMIN HUMAN 5% 500 ML IV ONE (08:00)
[2021-07-06 08:13] LABS: FIO2 ABG 100
[2021-07-06] MEDS: FUROSEMIDE 40 MG/4 ML VIAL. IVP SCH (09:00)
[2021-07-06] MEDS: LISINOPRIL 5 MG TABLET. PO SCH (09:00)
[2021-07-06] MEDS: ENOXAPARIN 40 MG/0.4 ML SYRINGE. SQ SCH ×2 (09:18→21:33)
[2021-07-06] MEDS: INSULIN GLARGINE SYRINGE. SQ SCH ×2 (09:18→21:34)
[2021-07-06] MEDS: THIAMINE 100 MG TABLET. PO SCH (09:18)
[2021-07-06] MEDS: GABAPENTIN 300 MG CAPSULE. PO SCH ×3 (09:18→21:32)
[2021-07-06] MEDS: ASCORBIC ACID 1,000 MG TABLET PO SCH ×3 (09:18→21:32)
[2021-07-06] MEDS: ZINC SULFATE 220 MG CAPSULE. PO SCH (09:18)
[2021-07-06 09:38] LABS: HEMATOCRIT 21.3 % (36.0-47.0); RED BLOOD COUNT 2.76 x10^6/uL (3.50-5.40); RED CELL DISTRIBUTION WIDTH 19.7 % (11.5-14.5); WHITE BLOOD COUNT 4.4 x10^3/uL (4.0-11.0)
[2021-07-06 09:41] LABS: HEMOGLOBIN 6.9 g/dL (12.0-15.5)
--- NOTE | 2021-07-06 09:48 | PDOC ---
PULMONARY PROGRESS NOTES DATE: 07/06/21 TIME: 09:43 Subjective Patient with worsening oxygenation 07/05. Now on pressure control of 40. PEEPof 12 and 100% FiO2. Afebrile Low-grade fever and gram-negative rods in the blood Vitals Vital Signs Date Time Temp Pulse Resp B/P (MAP) Pulse Ox O2 Delivery O2 Flow Rate FiO2 07/06/21 09:41 100 Ventilator 07/06/21 06:00 70 18 95/41 (59) 07/06/21 04:00 99.0 99.0 07/06/21 00:39 40.0 Comments ros unable to obtain on vent sedated Lungs: Crackles Cardiovascular: S1 Abdomen: Soft, Other (Obese) Extremities: No Edema Skin: Warm Labs Laboratory Tests Test 07/04/21 10:50 07/04/21 13:01 07/04/21 18:12 07/04/21 21:45 Urine Collection Type Unknown Urine Color Yellow Urine Clarity Clear Urine pH 5.0 (<5.0-8.0) Urine Specific [place] 1.010 (1.000-1.030) Urine Protein Negative mg/dL (NEG-TRACE) Urine Glucose (UA) Negative mg/dL (NEG) Urine Ketones (Stick) Negative mg/dL (NEG) Urine Blood Negative (NEG) Urine Nitrite Negative (NEG) Urine Bilirubin Negative (NEG) Urine Urobilinogen Dipstick 2.0 mg/dL (0.2 mg/dL) Urine Leukocyte Esterase Moderate (NEG) Urine RBC Occ /HPF (0-2) Urine WBC 11-20 /HPF (0-4) Urine Squamous Epithelial Cells Mod /LPF Urine Amorphous Sediment Present /HPF Urine Bacteria Few /HPF (0-FEW) Urine Hyaline Casts Few /HPF Urine Mucus Slight /LPF Urine Yeast Present /HPF Clostridium difficile Toxin (PCR) Negative (NEGATIVE) Glucose (Fingerstick) 137 mg/dL (70-99) 161 mg/dL (70-99) O2 Saturation 72 % (92-99) Arterial Blood pH 7.13 (7.35-7.45) Arterial Blood pCO2 at Patient Temp 130 mmHg (35-46) Arterial Blood pO2 at Patient Temp 47 mmHg (75-108) Arterial Blood HCO3 43 mmol/L (21-28) Arterial Blood Base Excess 10 mmol/L (-3-3) FiO2 100 Test 07/04/21 23:56 07/05/21 06:16 07/05/21 06:24 07/05/21 07:54 Glucose (Fingerstick) 161 mg/dL (70-99) 157 mg/dL (70-99) White Blood Count 9.8 x10^3/uL (4.0-11.0) Red Blood Count 3.10 x10^6/uL (3.50-5.40) Hemoglobin 7.6 g/dL (12.0-15.5) Hematocrit 24.1 % (36.0-47.0) Mean Corpuscular Volume 78 fL (79-100) Mean Corpuscular Hemoglobin 25 pg (25-35) Mean Corpuscular Hemoglobin Concent 31 g/dL (31-37) Red Cell Distribution Width 19.4 % (11.5-14.5) Platelet Count 211 x10^3/uL (140-400) Neutrophils (%) (Auto) 81 % (31-73) Lymphocytes (%) (Auto) 8 % (24-48) Monocytes (%) (Auto) 5 % (0-9) Eosinophils (%) (Auto) 6 % (0-3) Basophils (%) (Auto) 0 % (0-3) Neutrophils # (Auto) 7.9 x10^3/uL (1.8-7.7) Lymphocytes # (Auto) 0.8 x10^3/uL (1.0-4.8) Monocytes # (Auto) 0.4 x10^3/uL (0.0-1.1) Eosinophils # (Auto) 0.5 x10^3/uL (0.0-0.7) Basophils # (Auto) 0.0 x10^3/uL (0.0-0.2) Sodium Level 140 mmol/L (136-145) Potassium Level 3.8 mmol/L (3.5-5.1) Chloride Level 101 mmol/L (98-107) Carbon Dioxide Level 35 mmol/L (21-32) Anion Gap 4 (6-14) Blood Urea Nitrogen 18 mg/dL (7-20) Creatinine 0.8 mg/dL (0.6-1.0) Estimated GFR (Cockcroft-Gault) 79.4 Glucose Level 163 mg/dL (70-99) Calcium Level 8.3 mg/dL (8.5-10.1) O2 Saturation 89 % (92-99) Arterial Blood pH 7.30 (7.35-7.45) Arterial Blood pCO2 at Patient Temp 66 mmHg (35-46) Arterial Blood pO2 at Patient Temp 60 mmHg (75-108) Arterial Blood HCO3 32 mmol/L (21-28) Arterial Blood Base Excess 4 mmol/L (-3-3) FiO2 100 Test 07/05/21 12:32 07/05/21 17:46 07/06/21 00:21 07/06/21 06:29 Glucose (Fingerstick) 148 mg/dL (70-99) 153 mg/dL (70-99) 127 mg/dL (70-99) 158 mg/dL (70-99) Test 07/06/21 07:24 07/06/21 09:30 O2 Saturation 90 % (92-99) Arterial Blood pH 7.39 (7.35-7.45) Arterial Blood pCO2 at Patient Temp 57 mmHg (35-46) Arterial Blood pO2 at Patient Temp 61 mmHg (75-108) Arterial Blood HCO3 33 mmol/L (21-28) Arterial Blood Base Excess 7 mmol/L (-3-3) FiO2 100 White Blood Count 4.4 x10^3/uL (4.0-11.0) Red Blood Count 2.76 x10^6/uL (3.50-5.40) Hemoglobin 6.9 g/dL (12.0-15.5) Hematocrit 21.3 % (36.0-47.0) Mean Corpuscular Volume 77 fL (79-100) Mean Corpuscular Hemoglobin 25 pg (25-35) Mean Corpuscular Hemoglobin Concent 32 g/dL (31-37) Red Cell Distribution Width 19.7 % (11.5-14.5) Platelet Count 193 x10^3/uL (140-400) Laboratory Tests Test 07/05/21 12:32 07/05/21 17:46 07/06/21 00:21 07/06/21 06:29 Glucose (Fingerstick) 148 mg/dL (70-99) 153 mg/dL (70-99) 127 mg/dL (70-99) 158 mg/dL (70-99) Test 07/06/21 07:24 07/06/21 09:30 O2 Saturation 90 % (92-99) Arterial Blood pH 7.39 (7.35-7.45) Arterial Blood pCO2 at Patient Temp 57 mmHg (35-46) Arterial Blood pO2 at Patient Temp 61 mmHg (75-108) Arterial Blood HCO3 33 mmol/L (21-28) Arterial Blood Base Excess 7 mmol/L (-3-3) FiO2 100 White Blood Count 4.4 x10^3/uL (4.0-11.0) Red Blood Count 2.76 x10^6/uL (3.50-5.40) Hemoglobin 6.9 g/dL (12.0-15.5) Hematocrit 21.3 % (36.0-47.0) Mean Corpuscular Volume 77 fL (79-100) Mean Corpuscular Hemoglobin 25 pg (25-35) Mean Corpuscular Hemoglobin Concent 32 g/dL (31-37) Red Cell Distribution Width 19.7 % (11.5-14.5) Platelet Count 193 x10^3/uL (140-400) Medications Active Scripts Medications Dose Route/Sig Max Daily Dose Days Date Category Cyclobenzaprine Hcl 10 Mg Tablet 10 Mg PO TID 06/15/21 Reported Meloxicam 15 Mg Tablet 15 Mg PO DAILY 06/15/21 Reported Fluticasone Propionate Nasal [place] (Fluticasone Propionate) 16 Gm [place].susp 1 [place] NS DAILY 06/15/21 Reported Loratadine 10 Mg Tablet 10 Mg PO DAILY 06/15/21 Reported Furosemide 20 Mg Tablet 20 Mg PO DAILY 06/15/21 Reported Gabapentin (Gabapentin) 300 Mg Capsule 300 Mg PO TID 06/15/21 Reported Gabapentin (Gabapentin) 300 Mg Capsule 300 Mg PO TID 06/15/21 Reported Lisinopril 5 Mg Tablet 1 Tab PO DAILY 06/15/21 Reported Metformin Hcl 500 Mg Tablet 500 Mg PO BIDWMEALS 06/15/21 Reported Ozempic (Semaglutide) 0.25 Mg/0.2 Ml Pen.injctr 0.25 Mg SQ WEEKLY 06/15/21 Reported Comments Chest x-ray reviewed 07/04/2021. With diffuse bilateral infiltrates consistent with ARDS Chest x-ray reviewed 06/30/2021 Unchanged bilateral diffuse interstitial infiltrates Impression . 1. Acute hypoxic respiratory failure secondary to ARDS/COVID-19 infection, worsening intubated 06/19/21. Oxygen requirement significantly worsened. Now on pressure control of 40, PEEP of 12 and 100% FiO2. ABGs reviewed. 2. Abnormal CT of chest secondary to COVID-19 infection/ARDS 3. Diabetes type 2 with hyperglycemia 4. Hypertension--- blood pressure has been labile. 5. Hyperlipdemia 6. Obesity 7. New sepsis with Proteus mirabilis bacteremia and pneumonia 8. Proteus mirabilis in the sputum. Plan . Updated 07/06/21 Oxygen requirement has significantly worsened. Now on pressure control of 40. I:E. ratio 1 :1. 100% FiO2 and 12 of PEEP. Not much room to wean today. Chest x-ray with whiteout both lungs consistent with severe ARDS. Patient did receive IV Lasix yesterday Continue current vent support, Follow ABG/CXR-reviewed. S/P remdesivir Status post steroids treatment Proteus mirabilis bacteremia and isolation of Proteus in the sputum. Continue antibiotics per infectious disease recommendations. Continue zinc/vitamin C As needed Lasix. Packed RBC today. Continue low-dose Levophed. Continue tube feeding for nutritional support DVT/GI prophylaxis: Lovenox. Monitor closely for any further drop in hemoglobin. Discussed with RN and RT Full code Discussed with entire family at the bedside 07/05/2021 . Critical care time 30 minutes Updated 07/05/21 Oxygen requirement has significantly worsened. Now on pressure control of 40. I:E. ratio 1 :1. 100% FiO2 and 12 of PEEP. Chest x-ray with whiteout both lungs consistent with severe ARDS. Continue current vent support, Follow ABG/CXR-reviewed. S/P remdesivir Status post steroids treatment Gram-negative rods in the blood. Follow infectious disease recommendations. Follow final cultures. Proteus mirabilis in the sputum. Continue present antibiotics per ID recommendation Continue zinc/vitamin C Try extra Lasix IV today. Continue low-dose Levophed. Continue tube feeding for nutritional support DVT/GI prophylaxis: Lovenox Discussed with RN and RT Full code Discussed with entire family at the bedside. Critical care time 35 minutes Updated 07/04/21 Continue current vent support, setting reviewed assist control mode. Remains on 90% FiO2 and 9 of PEEP. abg reviewed titrate peep fio2 as tolerated . Follow ABG/CXR-reviewed. Make changes as needed. S/P remdesivir Status post steroids treatment Gram-negative rods in the blood. Follow infectious disease recommendations. Follow final cultures. Continue zinc/vitamin C As needed NS bolus to keep MAP greater than 65 Continue tube feeding for nutritional support DVT/GI prophylaxis: Lovenox Discussed with RN and RT Full code Updated 07/03/21 Continue current vent support, setting reviewed assist control mode. Remains on 70% FiO2 and 9 of PEEP. abg reviewed improve po2 titrate peep fio2 as tolerated need to taper off vec gtt if able Follow ABG/CXR-reviewed. Make changes as needed. S/P remdesivir Status post steroids treatment Continue zinc/vitamin C As needed NS bolus to keep MAP greater than 65 Continue tube feeding for nutritional support DVT/GI prophylaxis: Lovenox Discussed with RN and RT Full code Updated 07/02/21 Continue current vent support, setting reviewed assist control mode. Remains on 80% FiO2 and 9 of PEEP. abg reviewed improve po2 titrate peep fio2 as tolerated need to taper off vec gtt if able Follow ABG/CXR-reviewed. Make changes as needed. S/P remdesivir Status post steroids treatment Continue zinc/vitamin C As needed NS bolus to keep MAP greater than 65 Continue tube feeding for nutritional support DVT/GI prophylaxis: Lovenox Discussed with RN and RT Full code Updated 07/01/21 Continue current vent support, setting reviewed assist control mode. Remains on 80% FiO2 and 9 of PEEP. titrate peep fio2 as tolerated Follow ABG/CXR-reviewed. Make changes as needed. S/P remdesivir Status post steroids treatment Continue zinc/vitamin C As needed NS bolus to keep MAP greater than 65 Continue tube feeding for nutritional support DVT/GI prophylaxis: Lovenox Discussed with RN and RT Full code Updated 06/30/21 Continue current vent support, patient is now on assist control mode. Oxygen requirement unchanged. Remains on 80% FiO2 and 9 of PEEP. Follow ABG/CXR-reviewed. Make changes as needed. S/P remdesivir Status post steroids treatment Continue zinc/vitamin C As needed NS bolus to keep MAP greater than 65 Continue tube feeding for nutritional support DVT/GI prophylaxis: Lovenox Discussed with RN and RT Full code Critical care time 30 minutes Updated 06/29/21 Continue current vent support, currently pressure control mode of (37) 16/37/80%/9 Follow ABG/CXR-reduce rate to 14 today S/P remdesivir Continue zinc/vitamin C Give 500 cc NS bolus if not improved start vasopressor medications to keep MAP g reater than 65 Continue tube feeding for nutritional support DVT/GI prophylaxis: Lovenox Discussed with RN and RT Full code Critical care time 30 minutes NICOLETTE MORALES MD Jul 06, 2021 09:48
[2021-07-06 10:10] LABS: ALBUMIN 1.2 g/dL (3.4-5.0); ALBUMIN/GLOBULIN RATIO 0.3 (1.0-1.7); CALCIUM 8.2 mg/dL (8.5-10.1); CREATININE 0.5 mg/dL (0.6-1.0); GFR 136.6; TOTAL BILIRUBIN 0.7 mg/dL (0.2-1.0); TOTAL PROTEIN 5.4 g/dL (6.4-8.2)
[2021-07-06 10:13] LABS: POTASSIUM 2.8 mmol/L (3.5-5.1)
[2021-07-06] MEDS ORDERED: POTASSIUM BICARB 20 MEQ EFFERVESCENT TABLET. PO ONE (12:00)
[2021-07-06] MEDS: NOREPINEPHRINE VIAL 8 MG in IV DEXTROSE 5% 250 ML IV PRN (16:41)
[2021-07-06 16:56] LABS: HEMATOCRIT 24.8 % (36.0-47.0); HEMOGLOBIN 8.3 g/dL (12.0-15.5); RED BLOOD COUNT 3.17 x10^6/uL (3.50-5.40); RED CELL DISTRIBUTION WIDTH 19.4 % (11.5-14.5); WHITE BLOOD COUNT 4.7 x10^3/uL (4.0-11.0)
[2021-07-06 17:05] LABS: MAGNESIUM 1.6 mg/dL (1.8-2.4); POTASSIUM 3.8 mmol/L (3.5-5.1)
[2021-07-06] MEDS ORDERED: MAGNESIUM SULFATE 2GM 50 ML IV ONE (18:00)
[2021-07-07] VITALS (24 sets, daily range): BP systolic 70–148; BP diastolic 45–66
[2021-07-07] MEDS: INSULIN LISPRO 300 UNITS/3 ML VIAL. SQ SCH ×4 (00:46→18:00)
[2021-07-07] MEDS: DEXMEDETOMIDINE 400 MCG in IV NORMAL SALINE 100ML 96 ML IV PRN ×6 (02:49→22:41)
[2021-07-07] MEDS: NORCURON - VECURONIUM 50 MG in IV NORMAL SALINE 50ML 50 ML IV PRN ×2 (03:49→19:18)
[2021-07-07] MEDS: PROPOFOL 100 ML IV PRN ×4 (03:50→21:18)
[2021-07-07] MEDS: MIDAZOLAM 100mg/100ml NS BAG 100 ML IV PRN ×2 (05:13→16:05)
[2021-07-07] MEDS: MEROPENEM 1 GM in IV NORMAL SALINE 100ML 100 ML IV SCH ×3 (06:26→21:16)
[2021-07-07 06:29] LABS: HEMATOCRIT 28.5 % (36.0-47.0); HEMOGLOBIN 9.4 g/dL (12.0-15.5); RED BLOOD COUNT 3.66 x10^6/uL (3.50-5.40); RED CELL DISTRIBUTION WIDTH 19.3 % (11.5-14.5); WHITE BLOOD COUNT 8.1 x10^3/uL (4.0-11.0)
--- NOTE | 2021-07-07 07:07 | PDOC ---
PULMONARY PROGRESS NOTES DATE: 07/07/21 TIME: 07:03 Subjective Spoke with RN, no overnight events Currently on pressure control 100% FiO2 13 of PEEP On norepinephrine Low-grade fever Vitals Vital Signs Date Time Temp Pulse Resp B/P (MAP) Pulse Ox O2 Delivery O2 Flow Rate FiO2 07/07/21 06:00 82 19 70/ 97 Ventilator 07/07/21 04:00 98.1 98.1 07/06/21 23:46 40.0 Comments ros unable to obtain on vent sedated Lungs: Crackles Cardiovascular: S1 Abdomen: Soft Extremities: No Edema Skin: Warm Labs Laboratory Tests Test 07/05/21 07:54 07/05/21 12:32 07/05/21 17:46 07/06/21 00:21 O2 Saturation 89 % (92-99) Arterial Blood pH 7.30 (7.35-7.45) Arterial Blood pCO2 at Patient Temp 66 mmHg (35-46) Arterial Blood pO2 at Patient Temp 60 mmHg (75-108) Arterial Blood HCO3 32 mmol/L (21-28) Arterial Blood Base Excess 4 mmol/L (-3-3) FiO2 100 Glucose (Fingerstick) 148 mg/dL (70-99) 153 mg/dL (70-99) 127 mg/dL (70-99) Test 07/06/21 06:29 07/06/21 07:24 07/06/21 09:30 07/06/21 12:52 Glucose (Fingerstick) 158 mg/dL (70-99) 118 mg/dL (70-99) O2 Saturation 90 % (92-99) Arterial Blood pH 7.39 (7.35-7.45) Arterial Blood pCO2 at Patient Temp 57 mmHg (35-46) Arterial Blood pO2 at Patient Temp 61 mmHg (75-108) Arterial Blood HCO3 33 mmol/L (21-28) Arterial Blood Base Excess 7 mmol/L (-3-3) FiO2 100 White Blood Count 4.4 x10^3/uL (4.0-11.0) Red Blood Count 2.76 x10^6/uL (3.50-5.40) Hemoglobin 6.9 g/dL (12.0-15.5) Hematocrit 21.3 % (36.0-47.0) Mean Corpuscular Volume 77 fL (79-100) Mean Corpuscular Hemoglobin 25 pg (25-35) Mean Corpuscular Hemoglobin Concent 32 g/dL (31-37) Red Cell Distribution Width 19.7 % (11.5-14.5) Platelet Count 193 x10^3/uL (140-400) Sodium Level 145 mmol/L (136-145) Potassium Level 2.8 mmol/L (3.5-5.1) Chloride Level 105 mmol/L (98-107) Carbon Dioxide Level 34 mmol/L (21-32) Anion Gap 6 (6-14) Blood Urea Nitrogen 17 mg/dL (7-20) Creatinine 0.5 mg/dL (0.6-1.0) Estimated GFR (Cockcroft-Gault) 136.6 BUN/Creatinine Ratio 34 (6-20) Glucose Level 116 mg/dL (70-99) Calcium Level 8.2 mg/dL (8.5-10.1) Total Bilirubin 0.7 mg/dL (0.2-1.0) Aspartate Amino Transf (AST/SGOT) 12 U/L (15-37) Alanine Aminotransferase (ALT/SGPT) 6 U/L (14-59) Alkaline Phosphatase 93 U/L (46-116) Total Protein 5.4 g/dL (6.4-8.2) Albumin 1.2 g/dL (3.4-5.0) Albumin/Globulin Ratio 0.3 (1.0-1.7) Test 07/06/21 16:50 07/06/21 18:06 07/06/21 21:00 07/07/21 00:22 White Blood Count 4.7 x10^3/uL (4.0-11.0) Red Blood Count 3.17 x10^6/uL (3.50-5.40) Hemoglobin 8.3 g/dL (12.0-15.5) Hematocrit 24.8 % (36.0-47.0) Mean Corpuscular Volume 78 fL (79-100) Mean Corpuscular Hemoglobin 26 pg (25-35) Mean Corpuscular Hemoglobin Concent 33 g/dL (31-37) Red Cell Distribution Width 19.4 % (11.5-14.5) Platelet Count 189 x10^3/uL (140-400) Potassium Level 3.8 mmol/L (3.5-5.1) Magnesium Level 1.6 mg/dL (1.8-2.4) Glucose (Fingerstick) 146 mg/dL (70-99) 138 mg/dL (70-99) 165 mg/dL (70-99) Test 07/07/21 05:55 07/07/21 06:20 White Blood Count 8.1 x10^3/uL (4.0-11.0) Red Blood Count 3.66 x10^6/uL (3.50-5.40) Hemoglobin 9.4 g/dL (12.0-15.5) Hematocrit 28.5 % (36.0-47.0) Mean Corpuscular Volume 78 fL (79-100) Mean Corpuscular Hemoglobin 26 pg (25-35) Mean Corpuscular Hemoglobin Concent 33 g/dL (31-37) Red Cell Distribution Width 19.3 % (11.5-14.5) Platelet Count 272 x10^3/uL (140-400) Glucose (Fingerstick) 156 mg/dL (70-99) Laboratory Tests Test 07/06/21 07:24 07/06/21 09:30 07/06/21 12:52 07/06/21 16:50 O2 Saturation 90 % (92-99) Arterial Blood pH 7.39 (7.35-7.45) Arterial Blood pCO2 at Patient Temp 57 mmHg (35-46) Arterial Blood pO2 at Patient Temp 61 mmHg (75-108) Arterial Blood HCO3 33 mmol/L (21-28) Arterial Blood Base Excess 7 mmol/L (-3-3) FiO2 100 White Blood Count 4.4 x10^3/uL (4.0-11.0) 4.7 x10^3/uL (4.0-11.0) Red Blood Count 2.76 x10^6/uL (3.50-5.40) 3.17 x10^6/uL (3.50-5.40) Hemoglobin 6.9 g/dL (12.0-15.5) 8.3 g/dL (12.0-15.5) Hematocrit 21.3 % (36.0-47.0) 24.8 % (36.0-47.0) Mean Corpuscular Volume 77 fL (79-100) 78 fL (79-100) Mean Corpuscular Hemoglobin 25 pg (25-35) 26 pg (25-35) Mean Corpuscular Hemoglobin Concent 32 g/dL (31-37) 33 g/dL (31-37) Red Cell Distribution Width 19.7 % (11.5-14.5) 19.4 % (11.5-14.5) Platelet Count 193 x10^3/uL (140-400) 189 x10^3/uL (140-400) Sodium Level 145 mmol/L (136-145) Potassium Level 2.8 mmol/L (3.5-5.1) 3.8 mmol/L (3.5-5.1) Chloride Level 105 mmol/L (98-107) Carbon Dioxide Level 34 mmol/L (21-32) Anion Gap 6 (6-14) Blood Urea Nitrogen 17 mg/dL (7-20) Creatinine 0.5 mg/dL (0.6-1.0) Estimated GFR (Cockcroft-Gault) 136.6 BUN/Creatinine Ratio 34 (6-20) Glucose Level 116 mg/dL (70-99) Calcium Level 8.2 mg/dL (8.5-10.1) Total Bilirubin 0.7 mg/dL (0.2-1.0) Aspartate Amino Transf (AST/SGOT) 12 U/L (15-37) Alanine Aminotransferase (ALT/SGPT) 6 U/L (14-59) Alkaline Phosphatase 93 U/L (46-116) Total Protein 5.4 g/dL (6.4-8.2) Albumin 1.2 g/dL (3.4-5.0) Albumin/Globulin Ratio 0.3 (1.0-1.7) Glucose (Fingerstick) 118 mg/dL (70-99) Magnesium Level 1.6 mg/dL (1.8-2.4) Test 07/06/21 18:06 07/06/21 21:00 07/07/21 00:22 07/07/21 05:55 Glucose (Fingerstick) 146 mg/dL (70-99) 138 mg/dL (70-99) 165 mg/dL (70-99) White Blood Count 8.1 x10^3/uL (4.0-11.0) Red Blood Count 3.66 x10^6/uL (3.50-5.40) Hemoglobin 9.4 g/dL (12.0-15.5) Hematocrit 28.5 % (36.0-47.0) Mean Corpuscular Volume 78 fL (79-100) Mean Corpuscular Hemoglobin 26 pg (25-35) Mean Corpuscular Hemoglobin Concent 33 g/dL (31-37) Red Cell Distribution Width 19.3 % (11.5-14.5) Platelet Count 272 x10^3/uL (140-400) Test 07/07/21 06:20 Glucose (Fingerstick) 156 mg/dL (70-99) Medications Active Scripts Medications Dose Route/Sig Max Daily Dose Days Date Category Cyclobenzaprine Hcl 10 Mg Tablet 10 Mg PO TID 06/15/21 Reported Meloxicam 15 Mg Tablet 15 Mg PO DAILY 06/15/21 Reported Fluticasone Propionate Nasal [place] (Fluticasone Propionate) 16 Gm [place].susp 1 [place] NS DAILY 06/15/21 Reported Loratadine 10 Mg Tablet 10 Mg PO DAILY 06/15/21 Reported Furosemide 20 Mg Tablet 20 Mg PO DAILY 06/15/21 Reported Gabapentin (Gabapentin) 300 Mg Capsule 300 Mg PO TID 06/15/21 Reported Gabapentin (Gabapentin) 300 Mg Capsule 300 Mg PO TID 06/15/21 Reported Lisinopril 5 Mg Tablet 1 Tab PO DAILY 06/15/21 Reported Metformin Hcl 500 Mg Tablet 500 Mg PO BIDWMEALS 06/15/21 Reported Ozempic (Semaglutide) 0.25 Mg/0.2 Ml Pen.injctr 0.25 Mg SQ WEEKLY 06/15/21 Reported Impression . 1. Acute hypoxic respiratory failure secondary to ARDS/COVID-19 infection, worsening intubated 06/19/21. 2. Ab[address] CT of chest secondary to COVID-19 infection/ARDS 3. Diabetes type 2 with hyperglycemia 4. Hypotension, secondary to sepsis 5. Hyperlipdemia 6. Obesity 7. sepsis with Proteus mirabilis bacteremia and pneumonia 8. Proteus mirabilis in the sputum. Plan . Updated 07/07 We will continue current support Chest x-ray currently pending Wean pressors as tolerated Currently on 100% FiO2 13 and PEEP Finish the course of steroids Low-grade fever Antibiotics per ID Monitor labs DVT GI prophylaxis Status post remdesivir ABG from yesterday noted Patient remains full code Updated 07/06/21 Oxygen requirement has significantly worsened. Now on pressure control of 40. I:E. ratio 1 :1. 100% FiO2 and 12 of PEEP. Not much room to wean today. Chest x-ray with whiteout both lungs consistent with severe ARDS. Patient did receive IV Lasix yesterday Continue current vent support, Follow ABG/CXR-reviewed. S/P remdesivir Status post steroids treatment Proteus mirabilis bacteremia and isolation of Proteus in the sputum. Continue antibiotics per infectious disease recommendations. Continue zinc/vitamin C As needed Lasix. Packed RBC today. Continue low-dose Levophed. Continue tube feeding for nutritional support DVT/GI prophylaxis: Lovenox. Monitor closely for any further drop in hemoglobin. Discussed with RN and RT Full code Discussed with entire family at the bedside 07/05/2021 . Critical care time 30 minutes Updated 07/05/21 Oxygen requirement has significantly worsened. Now on pressure control of 40. I:E. ratio 1 :1. 100% FiO2 and 12 of PEEP. Chest x-ray with whiteout both lungs consistent with severe ARDS. Continue current vent support, Follow ABG/CXR-reviewed. S/P remdesivir Status post steroids treatment Gram-negative rods in the blood. Follow infectious disease recommendations. Follow final cultures. Proteus mirabilis in the sputum. Continue present antibiotics per ID recommendation Continue zinc/vitamin C Try extra Lasix IV today. Continue low-dose Levophed. Continue tube feeding for nutritional support DVT/GI prophylaxis: Lovenox Discussed with RN and RT Full code Discussed with entire family at the bedside. Critical care time 35 minutes Updated 07/04/21 Continue current vent support, setting reviewed assist control mode. Remains on 90% FiO2 and 9 of PEEP. abg reviewed titrate peep fio2 as tolerated . Follow ABG/CXR-reviewed. Make changes as needed. S/P remdesivir Status post steroids treatment Gram-negative rods in the blood. Follow infectious disease recommendations. Follow final cultures. Continue zinc/vitamin C As needed NS bolus to keep MAP greater than 65 Continue tube feeding for nutritional support DVT/GI prophylaxis: Lovenox Discussed with RN and RT Full code CALVIN CAZARES MD Jul 07, 2021 07:07
[2021-07-07 07:43] LABS: BASE EXCESS ABG 4 mmol/L (-3-3); HCO3 ABG 31 mmol/L (21-28); PO2 ABG 55 mmHg (75-108); SAT O2 ABG 85 % (92-99)
[2021-07-07] MEDS: ENOXAPARIN 40 MG/0.4 ML SYRINGE. SQ SCH ×2 (08:07→20:03)
[2021-07-07] MEDS: ASCORBIC ACID 1,000 MG TABLET PO SCH ×3 (08:07→20:03)
[2021-07-07] MEDS: THIAMINE 100 MG TABLET. PO SCH (08:07)
[2021-07-07] MEDS: ZINC SULFATE 220 MG CAPSULE. PO SCH (08:07)
[2021-07-07] MEDS: PANTOPRAZOLE IV PUSH 40 MG VIAL. IVP SCH (08:08)
[2021-07-07] MEDS: GABAPENTIN 300 MG CAPSULE. PO SCH ×3 (08:08→20:03)
[2021-07-07] MEDS: LISINOPRIL 5 MG TABLET. PO SCH (08:08)
[2021-07-07] MEDS: INSULIN GLARGINE SYRINGE. SQ SCH ×2 (08:09→21:25)
[2021-07-07 08:42] LABS: PCO2 ABG 66 mmHg (35-46)
[2021-07-07 08:43] LABS: FIO2 ABG 100
--- NOTE | 2021-07-07 08:45 | RAD ---
XR CHEST 1V INDICATION: Reason: RF/ARDS 102 / Spl. Instructions: / History: . COMPARISON STUDY: 07/04/2021. FINDINGS: Life Support Devices: Stable endotracheal tube, enteric tube, right PICC. Lungs: Normal lung volume. Stable diffuse bilateral opacities. Pleura: No pleural effusion or pneumothorax. Heart and Mediastinum: Stable cardiomediastinal silhouette and great vessels. Bones and Soft Tissues: Stable regional skeleton and soft tissues. IMPRESSION: 1. Stable life support devices. 2. Stable diffuse bilateral opacities. Electronically signed by: Jose Antonio Astorga MD (07/07/2021 8:43 AM) [id number]
[2021-07-07 08:50] LABS: CREATININE 0.3 mg/dL (0.6-1.0); GFR 246.4; POTASSIUM 3.9 mmol/L (3.5-5.1)
--- NOTE | 2021-07-07 11:15 | PDOC ---
[employer] PROGRESS NOTE Date of Service DOS: DATE: 07/07/21 TIME: 11:14 Chief Complaint Chief Complaint Acute hypoxic respiratory failure requiring BiPAP COVID-19 pneumonia Morbid obesity History of diabetes mellitus type 2 History of hypertension Severe malnutrition Septic shock Gram negative bacteremia - proteus Plan: Continue insulin to 10 units twice daily and continue low intensity RISS Appreciate pulmonary recommendations for mechanical ventilation Continue IV thiamine and vitamin C IV Solu-Medrol 40 mg daily Titrate O2 supplementation to maintain O2 saturation greater than 92% Completed IV Remdesivir Lovenox for DVT prophylaxis Protonix while ventilated GI prophylaxis ADA diet Full code Discussed with RN and SW Disposition ICU management as above Surrogate decision maker is the undesignated at this time History of Present Illness History of Present Illness Ms Pierce is a transfer from [facility] in [facility], 40-year-old female with past medical history of diabetes, hypertension, dyslipidemia and morbid obesity who complains of shortness of breath 1 week ago and went to urgent care and found out that she was positive for Covid. She came in at 5:00 in the morning at [facility] is very hypoxic and was found to be her oxygen saturation was 68% she was put on a nonrebreather 15 L and she was improved to 90 to 93%. Patient is [id number]. Patient is a poor historian. She does not know what kind of medication she takes for her medical history. 06/15: In the ICU. She was face time talking with family members. She was still on nonrebreather. Pulmonary consulted. 06/16: On Vapotherm. No major complaints. 06/17: Remains on Vapotherm although O2 requirement decreasing. Continue current plan. 06/18: On 40 L Vapotherm and now requiring NRB in addition. Afebrile and on broad-spectrum antibiotics. Remdesivir finishes today. 06/19: Intubated overnight in ICU. Afebrile. Currently breathing FiO2 100%. Completed remdesivir. We will continue IV steroids and antibiotics. 06/20: Low-grade fever overnight (T-max 99.7 F). Remains on vent, FiO2 90%, PEEP 10. Continue treatment with IV steroids and antibiotics. 06/21: Afebrile. On vent with FiO2 80%, PEEP 10. Cont treatment with antibiotics steroids total of 10 day course (steroid taper to begin 06/24). 06/22: Afebrile. Remains on ventilator with FiO2 70%, PEEP 10. Completed remdesivir. Continue antibiotics, steroids with slow taper. 06/23: Afebrile. On vent with FiO2 of 70, PEEP 10. Continue antibiotics for diffuse bilateral opacities. Continue steroids with slow taper 06/24: Afebrile. On vent with FiO2 60%, PEEP 9. Continue antibiotics. Today is day 10 of steroids; will begin Solu-Medrol taper tomorrow. 06/25: On vent with FiO2 65, PEEP 9. Afebrile. Completed 10 days of steroids; will begin Solu-Medrol taper today at 60 mg twice daily. 06/26: Intubated and sedated vent at 20/450/70/9. Insulin dose to 10 units twice daily. Solu-Medrol decreased to 40 mg daily. Cont with IV Lasix 06/27: Intubated and sedated. Vent settings at assist control at saturating 97%. Vent settings set at 16/80/9. ABG at 7.4 /58/32. 06/28: No acute events overnight. Patient continues to be intubated and sedated. Saturating 90% on assist control with vent settings of 16/80/9. 06/29: No acute events overnight patient saturating 98% on vent settings of 10/80/9. 06/30: Patient did have hypotensive episode during the day which required a 500 NS bolus. Possibly needing vasopressors. pressure support/80/9. 07/01: No acute events overnight. Patient saturating 99% on vent settings of 14 pressure support/80/9. Urine output of 3.6 L in the last 24 hours. 07/02: Paralyzed for vent dysynchrony. Saturating 100% on 14/70/9. Fever of 101.1 this morning. 07/03: Febrile 101.1 F. 70% FiO2 and 9 PEEP. Still requiring vecuronium for ve nt dyssynchrony. ID consulted for sepsis, ?VAP 07/04: T-max 102.6 F last 24 hours, afebrile overnight. Peripheral culture and culture from PICC and sputum and urine culture obtained. Now on meropenem and Zyvox. More hypoxic, ABG 7.4 /48, requiring FiO2 90% PEEP of 9 07/05: Afebrile. ABG 7.3/66/60, FiO2 100% PEEP of 12. Sputum and blood cx proteus mirabilis. Urine with some yeast. Daughter bedside this morning noted she is thinking of withdrawing care. D/w patient's sister and nephew bedside patient has been aggressively cared for cont current care. 07/06: Afebrile overnight. Sedated on ventilator FiO2 100% PEEP 12, O2 saturation 90% on pulse oximetry, still requiring vecuronium for vent dyssynchrony. Labs pending. Afebrile. Hb 9.4, ABG 2.97/65.8/54.7. Peak pressures over 50s pressure control currently paralyzed. Lasix on hold received albumin. Still requiring Levophed. CT abdomen pelvis pending. Vitals/I&O Vitals/I&O: Vital Signs Date Time Temp Pulse Resp B/P (MAP) Pulse Ox O2 Delivery O2 Flow Rate FiO2 07/07/21 09:47 94 Ventilator 07/07/21 08:08 82 70/65 07/07/21 07:58 18 40.0 07/07/21 04:00 98.1 98.1 I & O 07/06/21 07/06/21 07/07/21 15:00 23:00 07:00 Intake Total 580 ml 2893 ml 620 ml Output Total 295 ml 475 ml 465 ml Balance 285 ml 2418 ml 155 ml Physical Exam Physical Exam: GENERAL: Sedated, orally intubated female, not in distress. VITAL SIGNS: Stable. HEENT: Both pupils are round and reacting. No conjunctival lesion. Mouth cannot be visualized, has orally intubated. NECK: Supple, no JVP, no lymphadenopathy. LUNGS: Clear. HEART: S1, S2 regular. ABDOMEN: Soft, nontender, no organomegaly. EXTREMITIES: No edema, cyanosis. SKIN: Unremarkable. NEUROLOGIC: The patient is sedated, intubated, neurologically unable to assess. General: No acute distress, Other (Intubated and sedated) Heart: Regular rate, Normal S1, Normal S2 Lungs: Crackles Abdomen: Normal bowel sounds, Soft Extremities: No clubbing, No edema, Normal pulses Skin: No rashes, No significant lesion Labs Labs: Laboratory Tests Test 07/06/21 12:52 07/06/21 16:50 07/06/21 18:06 07/06/21 21:00 Glucose (Fingerstick) 118 mg/dL (70-99) 146 mg/dL (70-99) 138 mg/dL (70-99) White Blood Count 4.7 x10^3/uL (4.0-11.0) Red Blood Count 3.17 x10^6/uL (3.50-5.40) Hemoglobin 8.3 g/dL (12.0-15.5) Hematocrit 24.8 % (36.0-47.0) Mean Corpuscular Volume 78 fL (79-100) Mean Corpuscular Hemoglobin 26 pg (25-35) Mean Corpuscular Hemoglobin Concent 33 g/dL (31-37) Red Cell Distribution Width 19.4 % (11.5-14.5) Platelet Count 189 x10^3/uL (140-400) Potassium Level 3.8 mmol/L (3.5-5.1) Magnesium Level 1.6 mg/dL (1.8-2.4) Test 07/07/21 00:22 07/07/21 05:55 07/07/21 06:20 07/07/21 07:38 Glucose (Fingerstick) 165 mg/dL (70-99) 156 mg/dL (70-99) White Blood Count 8.1 x10^3/uL (4.0-11.0) Red Blood Count 3.66 x10^6/uL (3.50-5.40) Hemoglobin 9.4 g/dL (12.0-15.5) Hematocrit 28.5 % (36.0-47.0) Mean Corpuscular Volume 78 fL (79-100) Mean Corpuscular Hemoglobin 26 pg (25-35) Mean Corpuscular Hemoglobin Concent 33 g/dL (31-37) Red Cell Distribution Width 19.3 % (11.5-14.5) Platelet Count 272 x10^3/uL (140-400) Sodium Level 145 mmol/L (136-145) Potassium Level 3.9 mmol/L (3.5-5.1) Chloride Level 105 mmol/L (98-107) Carbon Dioxide Level 37 mmol/L (21-32) Anion Gap 3 (6-14) Blood Urea Nitrogen 11 mg/dL (7-20) Creatinine 0.3 mg/dL (0.6-1.0) Estimated GFR (Cockcroft-Gault) 246.4 Glucose Level 153 mg/dL (70-99) Calcium Level 9.0 mg/dL (8.5-10.1) Magnesium Level 2.0 mg/dL (1.8-2.4) O2 Saturation 85 % (92-99) Arterial Blood pH 7.30 (7.35-7.45) Arterial Blood pCO2 at Patient Temp 66 mmHg (35-46) Arterial Blood pO2 at Patient Temp 55 mmHg (75-108) Arterial Blood HCO3 31 mmol/L (21-28) Arterial Blood Base Excess 4 mmol/L (-3-3) FiO2 100 Comment Review of Relevant I have reviewed the following items man (where applicable) has been applied. Medications: Current Medications Medications (Trade) Dose Ordered Sig/Jun Route PRN Reason Start Time Stop Time Status Last Admin Dose Admin Potassium Bicarbonate (Potassium Effervescent Tablet) 80 meq 1X ONCE PO 07/06/21 12:00 07/06/21 12:06 DC 07/06/21 12:50 Magnesium Sulfate 50 ml @ 25 mls/hr 1X ONCE IV 07/06/21 18:00 07/06/21 19:59 DC 07/06/21 17:56 Justifications for Admission Other Justification Acute hypoxic respiratory failure and Covid pneumonia DUNG MCDONOUGH MD Jul 07, 2021 11:15
--- NOTE | 2021-07-07 16:39 | PDOC ---
Infectious Disease Note Subjective Subjective pt is sedated on vent ROS ROS no n/v/d/sob Vital Sign Vital Signs Vital Signs Date Time Temp Pulse Resp B/P (MAP) Pulse Ox O2 Delivery O2 Flow Rate FiO2 07/07/21 16:06 94 Ventilator 07/07/21 16:03 18 07/07/21 14:00 78 104/49 (67) 07/07/21 12:00 98.7 98.7 07/07/21 07:58 40.0 Physical Exam PHYSICAL EXAM GENERAL: Sedated, orally intubated female, not in distress. VITAL SIGNS: Stable. HEENT: Both pupils are round and reacting. No conjunctival lesion. Mouth cannot be visualized, has orally intubated. NECK: Supple, no JVP, no lymphadenopathy. LUNGS: Clear. HEART: S1, S2 regular. ABDOMEN: Soft, nontender, no organomegaly. EXTREMITIES: No edema, cyanosis. SKIN: Unremarkable. NEUROLOGIC: The patient is sedated, intubated, neurologically unable to assess. Labs Lab Laboratory Tests Test 07/06/21 16:50 07/06/21 18:06 07/06/21 21:00 07/07/21 00:22 White Blood Count 4.7 x10^3/uL (4.0-11.0) Red Blood Count 3.17 x10^6/uL (3.50-5.40) Hemoglobin 8.3 g/dL (12.0-15.5) Hematocrit 24.8 % (36.0-47.0) Mean Corpuscular Volume 78 fL (79-100) Mean Corpuscular Hemoglobin 26 pg (25-35) Mean Corpuscular Hemoglobin Concent 33 g/dL (31-37) Red Cell Distribution Width 19.4 % (11.5-14.5) Platelet Count 189 x10^3/uL (140-400) Potassium Level 3.8 mmol/L (3.5-5.1) Magnesium Level 1.6 mg/dL (1.8-2.4) Glucose (Fingerstick) 146 mg/dL (70-99) 138 mg/dL (70-99) 165 mg/dL (70-99) Test 07/07/21 05:55 07/07/21 06:20 07/07/21 07:38 07/07/21 12:11 White Blood Count 8.1 x10^3/uL (4.0-11.0) Red Blood Count 3.66 x10^6/uL (3.50-5.40) Hemoglobin 9.4 g/dL (12.0-15.5) Hematocrit 28.5 % (36.0-47.0) Mean Corpuscular Volume 78 fL (79-100) Mean Corpuscular Hemoglobin 26 pg (25-35) Mean Corpuscular Hemoglobin Concent 33 g/dL (31-37) Red Cell Distribution Width 19.3 % (11.5-14.5) Platelet Count 272 x10^3/uL (140-400) Sodium Level 145 mmol/L (136-145) Potassium Level 3.9 mmol/L (3.5-5.1) Chloride Level 105 mmol/L (98-107) Carbon Dioxide Level 37 mmol/L (21-32) Anion Gap 3 (6-14) Blood Urea Nitrogen 11 mg/dL (7-20) Creatinine 0.3 mg/dL (0.6-1.0) Estimated GFR (Cockcroft-Gault) 246.4 Glucose Level 153 mg/dL (70-99) Calcium Level 9.0 mg/dL (8.5-10.1) Magnesium Level 2.0 mg/dL (1.8-2.4) Glucose (Fingerstick) 156 mg/dL (70-99) 149 mg/dL (70-99) O2 Saturation 85 % (92-99) Arterial Blood pH 7.30 (7.35-7.45) Arterial Blood pCO2 at Patient Temp 66 mmHg (35-46) Arterial Blood pO2 at Patient Temp 55 mmHg (75-108) Arterial Blood HCO3 31 mmol/L (21-28) Arterial Blood Base Excess 4 mmol/L (-3-3) FiO2 100 Micro Sputum culture Proteus Blood culture Proteus Urine has yeast Objective Assessment IMPRESSION: 1. Fever improving 2. COVID-19 infection. 3. Pulmonary infiltrate. 4. Respiratory failure. 5. Leukocytosis. 6. Morbid obesity. 7 G neg camilo bacteremia Proteus Plan Plan of Care cont meropenem check cultures supportive care CT abd and pelvis pending ROBERTO HADDAD MD Jul 07, 2021 16:39
[2021-07-08] VITALS (24 sets, daily range): BP systolic 96–109; BP diastolic 44–50
[2021-07-08] MEDS: PROPOFOL 100 ML IV PRN ×9 (00:13→22:08)
[2021-07-08] MEDS: MIDAZOLAM 100mg/100ml NS BAG 100 ML IV PRN ×3 (00:30→21:05)
[2021-07-08] MEDS: DEXMEDETOMIDINE 400 MCG in IV NORMAL SALINE 100ML 96 ML IV PRN ×8 (00:47→21:06)
[2021-07-08] MEDS: NORCURON - VECURONIUM 50 MG in IV NORMAL SALINE 50ML 50 ML IV PRN ×3 (03:04→21:08)
[2021-07-08] MEDS: MEROPENEM 1 GM in IV NORMAL SALINE 100ML 100 ML IV SCH ×3 (05:57→20:55)
[2021-07-08] MEDS: INSULIN LISPRO 300 UNITS/3 ML VIAL. SQ SCH ×4 (06:19→17:43)
--- NOTE | 2021-07-08 07:34 | PDOC ---
PULMONARY PROGRESS NOTES DATE: 07/08/21 TIME: 07:34 Subjective Nurse reports patient at times difficult to sedate not in sync with the ventilator Currently on 12 of PEEP 100% FiO2 Vitals Vital Signs Date Time Temp Pulse Resp B/P (MAP) Pulse Ox O2 Delivery O2 Flow Rate FiO2 07/08/21 07:15 18 90 Ventilator 07/08/21 07:00 69 96/45 (62) 07/08/21 04:00 100.6 100.6 07/07/21 23:06 40.0 Comments ros unable to obtain on vent sedated Lungs: Crackles Cardiovascular: S1 Abdomen: Soft Extremities: No Edema Skin: Warm Labs Laboratory Tests Test 07/06/21 09:30 07/06/21 12:52 07/06/21 16:50 07/06/21 18:06 White Blood Count 4.4 x10^3/uL (4.0-11.0) 4.7 x10^3/uL (4.0-11.0) Red Blood Count 2.76 x10^6/uL (3.50-5.40) 3.17 x10^6/uL (3.50-5.40) Hemoglobin 6.9 g/dL (12.0-15.5) 8.3 g/dL (12.0-15.5) Hematocrit 21.3 % (36.0-47.0) 24.8 % (36.0-47.0) Mean Corpuscular Volume 77 fL (79-100) 78 fL (79-100) Mean Corpuscular Hemoglobin 25 pg (25-35) 26 pg (25-35) Mean Corpuscular Hemoglobin Concent 32 g/dL (31-37) 33 g/dL (31-37) Red Cell Distribution Width 19.7 % (11.5-14.5) 19.4 % (11.5-14.5) Platelet Count 193 x10^3/uL (140-400) 189 x10^3/uL (140-400) Sodium Level 145 mmol/L (136-145) Potassium Level 2.8 mmol/L (3.5-5.1) 3.8 mmol/L (3.5-5.1) Chloride Level 105 mmol/L (98-107) Carbon Dioxide Level 34 mmol/L (21-32) Anion Gap 6 (6-14) Blood Urea Nitrogen 17 mg/dL (7-20) Creatinine 0.5 mg/dL (0.6-1.0) Estimated GFR (Cockcroft-Gault) 136.6 BUN/Creatinine Ratio 34 (6-20) Glucose Level 116 mg/dL (70-99) Calcium Level 8.2 mg/dL (8.5-10.1) Total Bilirubin 0.7 mg/dL (0.2-1.0) Aspartate Amino Transf (AST/SGOT) 12 U/L (15-37) Alanine Aminotransferase (ALT/SGPT) 6 U/L (14-59) Alkaline Phosphatase 93 U/L (46-116) Total Protein 5.4 g/dL (6.4-8.2) Albumin 1.2 g/dL (3.4-5.0) Albumin/Globulin Ratio 0.3 (1.0-1.7) Glucose (Fingerstick) 118 mg/dL (70-99) 146 mg/dL (70-99) Magnesium Level 1.6 mg/dL (1.8-2.4) Test 07/06/21 21:00 07/07/21 00:22 07/07/21 05:55 07/07/21 06:20 Glucose (Fingerstick) 138 mg/dL (70-99) 165 mg/dL (70-99) 156 mg/dL (70-99) White Blood Count 8.1 x10^3/uL (4.0-11.0) Red Blood Count 3.66 x10^6/uL (3.50-5.40) Hemoglobin 9.4 g/dL (12.0-15.5) Hematocrit 28.5 % (36.0-47.0) Mean Corpuscular Volume 78 fL (79-100) Mean Corpuscular Hemoglobin 26 pg (25-35) Mean Corpuscular Hemoglobin Concent 33 g/dL (31-37) Red Cell Distribution Width 19.3 % (11.5-14.5) Platelet Count 272 x10^3/uL (140-400) Sodium Level 145 mmol/L (136-145) Potassium Level 3.9 mmol/L (3.5-5.1) Chloride Level 105 mmol/L (98-107) Carbon Dioxide Level 37 mmol/L (21-32) Anion Gap 3 (6-14) Blood Urea Nitrogen 11 mg/dL (7-20) Creatinine 0.3 mg/dL (0.6-1.0) Estimated GFR (Cockcroft-Gault) 246.4 Glucose Level 153 mg/dL (70-99) Calcium Level 9.0 mg/dL (8.5-10.1) Magnesium Level 2.0 mg/dL (1.8-2.4) Test 07/07/21 07:38 07/07/21 12:11 07/07/21 17:30 07/07/21 20:54 O2 Saturation 85 % (92-99) Arterial Blood pH 7.30 (7.35-7.45) Arterial Blood pCO2 at Patient Temp 66 mmHg (35-46) Arterial Blood pO2 at Patient Temp 55 mmHg (75-108) Arterial Blood HCO3 31 mmol/L (21-28) Arterial Blood Base Excess 4 mmol/L (-3-3) FiO2 100 Glucose (Fingerstick) 149 mg/dL (70-99) 119 mg/dL (70-99) 141 mg/dL (70-99) Test 07/08/21 00:25 07/08/21 06:15 Glucose (Fingerstick) 148 mg/dL (70-99) 153 mg/dL (70-99) Laboratory Tests Test 07/07/21 07:38 07/07/21 12:11 07/07/21 17:30 07/07/21 20:54 O2 Saturation 85 % (92-99) Arterial Blood pH 7.30 (7.35-7.45) Arterial Blood pCO2 at Patient Temp 66 mmHg (35-46) Arterial Blood pO2 at Patient Temp 55 mmHg (75-108) Arterial Blood HCO3 31 mmol/L (21-28) Arterial Blood Base Excess 4 mmol/L (-3-3) FiO2 100 Glucose (Fingerstick) 149 mg/dL (70-99) 119 mg/dL (70-99) 141 mg/dL (70-99) Test 07/08/21 00:25 07/08/21 06:15 Glucose (Fingerstick) 148 mg/dL (70-99) 153 mg/dL (70-99) Medications Active Scripts Medications Dose Route/Sig Max Daily Dose Days Date Category Cyclobenzaprine Hcl 10 Mg Tablet 10 Mg PO TID 06/15/21 Reported Meloxicam 15 Mg Tablet 15 Mg PO DAILY 06/15/21 Reported Fluticasone Propionate Nasal Bouse (Fluticasone Propionate) 16 Gm Bouse.susp 1 Bouse NS DAILY 06/15/21 Reported Loratadine 10 Mg Tablet 10 Mg PO DAILY 06/15/21 Reported Furosemide 20 Mg Tablet 20 Mg PO DAILY 06/15/21 Reported Gabapentin (Gabapentin) 300 Mg Capsule 300 Mg PO TID 06/15/21 Reported Gabapentin (Gabapentin) 300 Mg Capsule 300 Mg PO TID 06/15/21 Reported Lisinopril 5 Mg Tablet 1 Tab PO DAILY 06/15/21 Reported Metformin Hcl 500 Mg Tablet 500 Mg PO BIDWMEALS 06/15/21 Reported Ozempic (Semaglutide) 0.25 Mg/0.2 Ml Pen.injctr 0.25 Mg SQ WEEKLY 06/15/21 Reported Impression . 1. Acute hypoxic respiratory failure secondary to ARDS/COVID-19 infection, worsening intubated 06/19/21. 2. Abnormal CT of chest secondary to COVID-19 infection/ARDS 3. Diabetes type 2 with hyperglycemia 4. Hypotension, secondary to sepsis 5. Hyperlipdemia 6. Obesity 7. sepsis with Proteus mirabilis bacteremia and pneumonia 8. Proteus mirabilis in the sputum. 9 gram-negative camilo bacteremia Proteus Chest x-ray reviewed, diffuse bilateral opacities unchanged Plan . Updated 07/08 We will continue sedation maintain patient in sync with ventilator Antibiotics meropenem per ID Follow-up on cultures Nutritional support DVT GI prophylaxis Status post remdesivir Updated 07/07 We will continue current support Chest x-ray currently pending Wean pressors as tolerated Currently on 100% FiO2 13 and PEEP Finish the course of steroids Low-grade fever Antibiotics per ID Monitor labs DVT GI prophylaxis Status post remdesivir ABG from yesterday noted Patient remains full code CALVIN CAZARES MD Jul 08, 2021 07:34
--- NOTE | 2021-07-08 08:14 | PDOC ---
[employer] PROGRESS NOTE Date of Service DOS: DATE: 07/08/21 TIME: 08:14 Chief Complaint Chief Complaint Acute hypoxic respiratory failure requiring BiPAP COVID-19 pneumonia Morbid obesity History of diabetes mellitus type 2 History of hypertension Severe malnutrition Septic shock Gram negative bacteremia - proteus Plan: Continue insulin to 10 units twice daily and continue low intensity RISS Appreciate pulmonary recommendations for mechanical ventilation Continue IV thiamine and vitamin C IV Solu-Medrol 40 mg daily Titrate O2 supplementation to maintain O2 saturation greater than 92% Completed IV Remdesivir Lovenox for DVT prophylaxis Protonix while ventilated GI prophylaxis ADA diet Full code Discussed with RN and SW Disposition ICU management as above Surrogate decision maker is the undesignated at this time History of Present Illness History of Present Illness Ms Pierce is a transfer from [facility] in [facility], 40-year-old female with past medical history of diabetes, hypertension, dyslipidemia and morbid obesity who complains of shortness of breath 1 week ago and went to urgent care and found out that she was positive for Covid. She came in at 5:00 in the morning at [facility] is very hypoxic and was found to be her oxygen saturation was 68% she was put on a nonrebreather 15 L and she was improved to 90 to 93%. Patient is qyl-[id number]-kodnscef. Patient is a poor historian. She does not know what kind of medication she takes for her medical history. 06/15: In the ICU. She was face time talking with family members. She was still on nonrebreather. Pulmonary consulted. 06/16: On Vapotherm. No major complaints. 06/17: Remains on Vapotherm although O2 requirement decreasing. Continue current plan. 06/18: On 40 L Vapotherm and now requiring NRB in addition. Afebrile and on broad-spectrum antibiotics. Remdesivir finishes today. 06/19: Intubated overnight in ICU. Afebrile. Currently breathing FiO2 100%. Completed remdesivir. We will continue IV steroids and antibiotics. 06/20: Low-grade fever overnight (T-max 99.7 F). Remains on vent, FiO2 90%, PEEP 10. Continue treatment with IV steroids and antibiotics. 06/21: Afebrile. On vent with FiO2 80%, PEEP 10. Cont treatment with antibiotics steroids total of 10 day course (steroid taper to begin 06/24). 06/22: Afebrile. Remains on ventilator with FiO2 70%, PEEP 10. Completed remdesivir. Continue antibiotics, steroids with slow taper. 06/23: Afebrile. On vent with FiO2 of 70, PEEP 10. Continue antibiotics for diffuse bilateral opacities. Continue steroids with slow taper 06/24: Afebrile. On vent with FiO2 60%, PEEP 9. Continue antibiotics. Today is day 10 of steroids; will begin Solu-Medrol taper tomorrow. 06/25: On vent with FiO2 65, PEEP 9. Afebrile. Completed 10 days of steroids; will begin Solu-Medrol taper today at 60 mg twice daily. 06/26: Intubated and sedated vent at 20/450/70/9. Insulin dose to 10 units twice daily. Solu-Medrol decreased to 40 mg daily. Cont with IV Lasix 06/27: Intubated and sedated. Vent settings at assist control at saturating 97%. Vent settings set at 16/80/9. ABG at 7.4 /58/32. 06/28: No acute events overnight. Patient continues to be intubated and sedated. Saturating 90% on assist control with vent settings of 16/80/9. 06/29: No acute events overnight patient saturating 98% on vent settings of 10/80/9. 06/30: Patient did have hypotensive episode during the day which required a 500 NS bolus. Possibly needing vasopressors. pressure support/80/9. 07/01: No acute events overnight. Patient saturating 99% on vent settings of 14 pressure support/80/9. Urine output of 3.6 L in the last 24 hours. 07/02: Paralyzed for vent dysynchrony. Saturating 100% on 14/70/9. Fever of 101.1 this morning. 07/03: Febrile 101.1 F. 70% FiO2 and 9 PEEP. Still requiring vecuronium for ve nt dyssynchrony. ID consulted for sepsis, ?VAP 07/04: T-max 102.6 F last 24 hours, afebrile overnight. Peripheral culture and culture from PICC and sputum and urine culture obtained. Now on meropenem and Zyvox. More hypoxic, ABG 7.4 /48, requiring FiO2 90% PEEP of 9 07/05: Afebrile. ABG 7.3/66/60, FiO2 100% PEEP of 12. Sputum and blood cx proteus mirabilis. Urine with some yeast. Daughter bedside this morning noted she is thinking of withdrawing care. D/w patient's sister and nephew bedside patient has been aggressively cared for cont current care. 07/06: Afebrile overnight. Sedated on ventilator FiO2 100% PEEP 12, O2 saturation 90% on pulse oximetry, still requiring vecuronium for vent dyssynchrony. Labs pending. 07/07: Afebrile. Hb 9.4, ABG 2.97/65.8/54.7. Peak pressures over 50s pressure control currently paralyzed. Lasix on hold received albumin. Still requiring Levophed. CT abdomen pelvis pending. Febrile to 100.6 F overnight. Vecuronium wean attempted and significantly dyssynchrony. Still requiring Levophed support. FiO2 100% 12 peak pressures in the 50s. Vitals/I&O Vitals/I&O: Vital Signs Date Time Temp Pulse Resp B/P (MAP) Pulse Ox O2 Delivery O2 Flow Rate FiO2 07/08/21 07:15 18 90 Ventilator 07/08/21 07:00 69 96/45 (62) 07/08/21 04:00 100.6 100.6 07/07/21 23:06 40.0 I & O 07/07/21 07/07/21 07/08/21 15:00 23:00 07:00 Intake Total 360 ml 2867.13 ml 240 ml Output Total 650 ml 600 ml 250 ml Balance -290 ml 2267.13 ml -10 ml Physical Exam Physical Exam: GENERAL: Sedated, orally intubated female, not in distress. VITAL SIGNS: Stable. HEENT: Both pupils are round and reacting. No conjunctival lesion. Mouth cannot be visualized, has orally intubated. NECK: Supple, no JVP, no lymphadenopathy. LUNGS: Clear. HEART: S1, S2 regular. ABDOMEN: Soft, nontender, no organomegaly. EXTREMITIES: No edema, cyanosis. SKIN: Unremarkable. NEUROLOGIC: The patient is sedated, intubated, neurologically unable to assess. General: No acute distress, Other (Intubated and sedated) Heart: Regular rate, Normal S1, Normal S2 Lungs: Crackles Abdomen: Normal bowel sounds, Soft Extremities: No clubbing, No edema, Normal pulses Skin: No rashes, No significant lesion Labs Labs: Laboratory Tests Test 07/07/21 12:11 07/07/21 17:30 07/07/21 20:54 07/08/21 00:25 Glucose (Fingerstick) 149 mg/dL (70-99) 119 mg/dL (70-99) 141 mg/dL (70-99) 148 mg/dL (70-99) Test 07/08/21 06:15 Glucose (Fingerstick) 153 mg/dL (70-99) Comment Review of Relevant I have reviewed the following items man (where applicable) has been applied. Justifications for Admission Other Justification Acute hypoxic respiratory failure and Covid pneumonia DUNG MCDONOUGH MD Jul 08, 2021 08:14
[2021-07-08] MEDS: LISINOPRIL 5 MG TABLET. PO SCH (09:00)
[2021-07-08 09:02] LABS: BASE EXCESS ABG 8 mmol/L (-3-3); HCO3 ABG 36 mmol/L (21-28); SAT O2 ABG 81 % (92-99)
[2021-07-08] MEDS: ENOXAPARIN 40 MG/0.4 ML SYRINGE. SQ SCH ×2 (09:14→20:54)
[2021-07-08] MEDS: THIAMINE 100 MG TABLET. PO SCH (09:14)
[2021-07-08] MEDS: ZINC SULFATE 220 MG CAPSULE. PO SCH (09:14)
[2021-07-08] MEDS: GABAPENTIN 300 MG CAPSULE. PO SCH ×3 (09:14→20:53)
[2021-07-08] MEDS: ASCORBIC ACID 1,000 MG TABLET PO SCH ×3 (09:16→20:53)
[2021-07-08] MEDS: PANTOPRAZOLE IV PUSH 40 MG VIAL. IVP SCH (09:16)
[2021-07-08] MEDS: INSULIN GLARGINE SYRINGE. SQ SCH ×2 (09:17→20:54)
[2021-07-08 10:50] LABS: PCO2 ABG 70 mmHg (35-46); PO2 ABG 49 mmHg (75-108)
[2021-07-08 10:51] LABS: FIO2 ABG 100% VENT
--- NOTE | 2021-07-08 11:01 | RAD ---
Exam Date: 07/08/2021 10:40 AM XR CHEST 1V Indication: Reason: pt on vent / Spl. Instructions: / History: . Comparison: July 07, 2021 FINDINGS/ IMPRESSION: Support lines and tubes remain in place. The cardiac silhouette is enlarged. Diffuse bilateral lung infiltrates are not significantly changed . No appreciable pleural effusion or pneumothorax. Electronically signed by: Neri Benjamin MD (07/08/2021 10:59 AM) [facility]
--- NOTE | 2021-07-08 12:49 | PDOC ---
Infectious Disease Note Subjective Subjective pt is sedated on vent ROS ROS no n/v/d/, low grade fever Vital Sign Vital Signs Vital Signs Date Time Temp Pulse Resp B/P (MAP) Pulse Ox O2 Delivery O2 Flow Rate FiO2 07/08/21 11:48 91 Ventilator 07/08/21 09:00 69 96/45 07/08/21 07:45 18 40.0 07/08/21 04:00 100.6 100.6 Physical Exam PHYSICAL EXAM GENERAL: Sedated, orally intubated female, not in distress. VITAL SIGNS: Stable. HEENT: Both pupils are round and reacting. No conjunctival lesion. Mouth cannot be visualized, has orally intubated. NECK: Supple, no JVP, no lymphadenopathy. LUNGS: Clear. HEART: S1, S2 regular. ABDOMEN: Soft, nontender, no organomegaly. EXTREMITIES: No edema, cyanosis. SKIN: Unremarkable. NEUROLOGIC: The patient is sedated, intubated, neurologically unable to assess. Labs Lab Laboratory Tests Test 07/07/21 17:30 07/07/21 20:54 07/08/21 00:25 07/08/21 06:15 Glucose (Fingerstick) 119 mg/dL (70-99) 141 mg/dL (70-99) 148 mg/dL (70-99) 153 mg/dL (70-99) Test 07/08/21 09:30 07/08/21 11:57 O2 Saturation 81 % (92-99) Arterial Blood pH 7.32 (7.35-7.45) Arterial Blood pCO2 at Patient Temp 70 mmHg (35-46) Arterial Blood pO2 at Patient Temp 49 mmHg (75-108) Arterial Blood HCO3 36 mmol/L (21-28) Arterial Blood Base Excess 8 mmol/L (-3-3) FiO2 100% vent Glucose (Fingerstick) 130 mg/dL (70-99) Micro Sputum culture Proteus Blood culture Proteus Urine has yeast Objective Assessment 1. Fever 2. COVID-19 infection. 3. Pulmonary infiltrate. 4. Respiratory failure. 5. Leukocytosis. 6. Morbid obesity. 7 G neg camilo bacteremia Proteus Plan Plan of Care Cont Merrem supportive care CT abd and pelvis pending ROBERTO HADDAD MD Jul 08, 2021 12:48
[2021-07-08] MEDS: fentaNYL HIGH DOSE PCA 55 ML IV PRN (23:10)
[2021-07-09] VITALS (24 sets, daily range): BP systolic 94–107; BP diastolic 44–54
[2021-07-09] MEDS: DEXMEDETOMIDINE 400 MCG in IV NORMAL SALINE 100ML 96 ML IV PRN ×8 (00:28→20:56)
[2021-07-09] MEDS: PROPOFOL 100 ML IV PRN ×10 (00:30→22:32)
[2021-07-09] MEDS: NORCURON - VECURONIUM 50 MG in IV NORMAL SALINE 50ML 50 ML IV PRN ×5 (01:42→22:31)
[2021-07-09] MEDS: MEROPENEM 1 GM in IV NORMAL SALINE 100ML 100 ML IV SCH ×3 (05:15→22:32)
[2021-07-09 05:50] LABS: BASO % 0 % (0-3); EOS # 0.5 x10^3/uL (0.0-0.7); EOS % 5 % (0-3); HEMATOCRIT 24.8 % (36.0-47.0); HEMOGLOBIN 8.1 g/dL (12.0-15.5); LYMPH # 1.3 x10^3/uL (1.0-4.8); LYMPH % 13 % (24-48); MEAN CORPUSCULAR HEMOGLOBIN 26 pg (25-35); MEAN CORPUSCULAR HGB CONC 33 g/dL (31-37); MEAN CORPUSCULAR VOLUME 78 fL (79-100); MONO # 0.4 x10^3/uL (0.0-1.1); MONO % 4 % (0-9); NEUT # 7.7 x10^3/uL (1.8-7.7); NEUT % 77 % (31-73); PLATELET COUNT 314 x10^3/uL (140-400); RED BLOOD COUNT 3.18 x10^6/uL (3.50-5.40)
[2021-07-09] MEDS: INSULIN LISPRO 300 UNITS/3 ML VIAL. SQ SCH ×5 (06:00→23:46)
[2021-07-09 06:05] LABS: ALBUMIN 1.2 g/dL (3.4-5.0); ALBUMIN/GLOBULIN RATIO 0.3 (1.0-1.7); CALCIUM 8.4 mg/dL (8.5-10.1); CREATININE 0.4 mg/dL (0.6-1.0); GFR 176.8; POTASSIUM 3.8 mmol/L (3.5-5.1); TOTAL BILIRUBIN 0.6 mg/dL (0.2-1.0); TOTAL PROTEIN 5.8 g/dL (6.4-8.2)
[2021-07-09] MEDS: MIDAZOLAM 100mg/100ml NS BAG 100 ML IV PRN ×2 (06:16→15:44)
[2021-07-09] MEDS: PANTOPRAZOLE IV PUSH 40 MG VIAL. IVP SCH (08:11)
[2021-07-09] MEDS: ZINC SULFATE 220 MG CAPSULE. PO SCH (08:12)
[2021-07-09] MEDS: GABAPENTIN 300 MG CAPSULE. PO SCH ×3 (08:12→20:55)
[2021-07-09] MEDS: FUROSEMIDE 40 MG/4 ML VIAL. IVP SCH (08:12)
[2021-07-09] MEDS: ENOXAPARIN 40 MG/0.4 ML SYRINGE. SQ SCH ×2 (08:12→20:55)
[2021-07-09] MEDS: ASCORBIC ACID 1,000 MG TABLET PO SCH ×3 (08:12→20:55)
[2021-07-09] MEDS: LISINOPRIL 5 MG TABLET. PO SCH (08:13)
[2021-07-09] MEDS: INSULIN GLARGINE SYRINGE. SQ SCH ×2 (08:13→20:56)
[2021-07-09] MEDS: THIAMINE 100 MG TABLET. PO SCH (08:13)
[2021-07-09 09:31] LABS: BASE EXCESS ABG 8 mmol/L (-3-3); HCO3 ABG 35 mmol/L (21-28); SAT O2 ABG 78 % (92-99)
--- NOTE | 2021-07-09 09:35 | PDOC ---
[employer] PROGRESS NOTE Date of Service DOS: DATE: 07/09/21 TIME: 09:33 Chief Complaint Chief Complaint Acute hypoxic respiratory failure requiring BiPAP and subsequent intubation - due to COVID 19 with ARDS COVID-19 pneumonia Morbid obesity History of diabetes mellitus type 2 History of hypertension Severe malnutrition Septic shock Gram negative bacteremia - proteus Plan: Completed IV Remdesivir and steroid therapy Lovenox for DVT prophylaxis Protonix while ventilated GI prophylaxis ADA diet Full code Discussed with RN and SW Disposition ICU management as above Surrogate decision maker is daughter, Lala History of Present Illness History of Present Illness Ms Pierce is a transfer from [facility] in [facility], 40-year-old female with past medical history of diabetes, hypertension, dyslipidemia and morbid obesity who complains of shortness of breath 1 week ago and went to urgent care and found out that she was positive for Covid. She came in at 5:00 in the morning at [facility] is very hypoxic and was found to be her oxygen saturation was 68% she was put on a nonrebreather 15 L and she was improved to 90 to 93%. Patient is [id number]. Patient is a poor historian. She does not know what kind of medication she takes for her medical history. 06/15: In the ICU. She was face time talking with family members. She was still on nonrebreather. Pulmonary consulted. 06/16: On Vapotherm. No major complaints. 06/17: Remains on Vapotherm although O2 requirement decreasing. Continue current plan. 06/18: On 40 L Vapotherm and now requiring NRB in addition. Afebrile and on broad-spectrum antibiotics. Remdesivir finishes today. 06/19: Intubated overnight in ICU. Afebrile. Currently breathing FiO2 100%. Completed remdesivir. We will continue IV steroids and antibiotics. 06/20: Low-grade fever overnight (T-max 99.7 F). Remains on vent, FiO2 90%, PEEP 10. Continue treatment with IV steroids and antibiotics. 06/21: Afebrile. On vent with FiO2 80%, PEEP 10. Cont treatment with antibiotics steroids total of 10 day course (steroid taper to begin 06/24). 06/22: Afebrile. Remains on ventilator with FiO2 70%, PEEP 10. Completed remd esivir. Continue antibiotics, steroids with slow taper. 06/23: Afebrile. On vent with FiO2 of 70, PEEP 10. Continue antibiotics for diffuse bilateral opacities. Continue steroids with slow taper 06/24: Afebrile. On vent with FiO2 60%, PEEP 9. Continue antibiotics. Today is day 10 of steroids; will begin Solu-Medrol taper tomorrow. 06/25: On vent with FiO2 65, PEEP 9. Afebrile. Completed 10 days of steroids; will begin Solu-Medrol taper today at 60 mg twice daily. 06/26: Intubated and sedated vent at 20/450/70/9. Insulin dose to 10 units twice daily. Solu-Medrol decreased to 40 mg daily. Cont with IV Lasix 06/27: Intubated and sedated. Vent settings at assist control at saturating 97%. Vent settings set at 16/80/9. ABG at 7.4 /58/32. 06/28: No acute events overnight. Patient continues to be intubated and sedated. Saturating 90% on assist control with vent settings of 16/80/9. 06/29: No acute events overnight patient saturating 98% on vent settings of 10/80/9. 06/30: Patient did have hypotensive episode during the day which required a 500 NS bolus. Possibly needing vasopressors. pressure support/80/9. 07/01: No acute events overnight. Patient saturating 99% on vent settings of 14 pressure support/80/9. Urine output of 3.6 L in the last 24 hours. 07/02: Paralyzed for vent dysynchrony. Saturating 100% on 14/70/9. Fever of 101.1 this morning. 07/03: Febrile 101.1 F. 70% FiO2 and 9 PEEP. Still requiring vecuronium for vent dyssynchrony. ID consulted for sepsis, ?VAP 07/04: T-max 102.6 F last 24 hours, afebrile overnight. Peripheral culture and culture from PICC and sputum and urine culture obtained. Now on meropenem and Zyvox. More hypoxic, ABG 7.4 157/48, requiring FiO2 90% PEEP of 9 07/05: Afebrile. ABG 7.3/66/60, FiO2 100% PEEP of 12. Sputum and blood cx proteus mirabilis. Urine with some yeast. Daughter bedside this morning noted she is thinking of withdrawing care. D/w patient's sister and nephew bedside patient has been aggressively cared for cont current care. 07/06: Afebrile overnight. Sedated on ventilator FiO2 100% PEEP 12, O2 saturation 90% on pulse oximetry, still requiring vecuronium for vent dyssynchrony. Labs p ending. 07/07: Afebrile. Hb 9.4, ABG 2.97/65.8/54.7. Peak pressures over 50s pressure control currently paralyzed. Lasix on hold received albumin. Still requiring Levophed. CT abdomen pelvis pending. 07/08: Febrile to 100.6 F overnight. Vecuronium wean attempted and significantly dyssynchrony. Still requiring Levophed support. FiO2 100% 12 peak pressures in the 50s. Afebrile overnight. More hypoxic overnight, I:E ratio 2-1, paralyzed on vecuronium for dyssynchrony. FiO2 100% PEEP 12. WBC 10, Hb 8.1, platelets 314. Met with daughter, Lala, bedside and sister over the phone the continued decline and grim prognosis and they have requested DNR. Vitals/I&O Vitals/I&O: Vital Signs Date Time Temp Pulse Resp B/P (MAP) Pulse Ox O2 Delivery O2 Flow Rate FiO2 07/09/21 08:13 66 104/48 07/09/21 07:00 18 87 Ventilator 07/09/21 04:00 99.4 99.4 07/08/21 15:52 40.0 I & O 07/08/21 07/08/21 07/09/21 15:00 23:00 07:00 Intake Total 320 ml 3082.01 ml 626 ml Output Total 450 ml 900 ml 550 ml Balance -130 ml 2182.01 ml 76 ml Physical Exam Physical Exam: GENERAL: Sedated, orally intubated female, not in distress. VITAL SIGNS: Stable. HEENT: Both pupils are round and reacting. No conjunctival lesion. Mouth cannot be visualized, has orally intubated. NECK: Supple, no JVP, no lymphadenopathy. LUNGS: Clear. HEART: S1, S2 regular. ABDOMEN: Soft, nontender, no organomegaly. EXTREMITIES: No edema, cyanosis. SKIN: Unremarkable. NEUROLOGIC: The patient is sedated, intubated, neurologically unable to assess. General: No acute distress, Other (Intubated and sedated) Heart: Regular rate, Normal S1, Normal S2 Lungs: Crackles Abdomen: Normal bowel sounds, Soft Extremities: No clubbing, No edema, Normal pulses Skin: No rashes, No significant lesion Labs Labs: Laboratory Tests Test 07/08/21 11:57 07/08/21 17:42 07/09/21 00:07 07/09/21 05:20 Glucose (Fingerstick) 130 mg/dL (70-99) 146 mg/dL (70-99) 145 mg/dL (70-99) White Blood Count 10.0 x10^3/uL (4.0-11.0) Red Blood Count 3.18 x10^6/uL (3.50-5.40) Hemoglobin 8.1 g/dL (12.0-15.5) Hematocrit 24.8 % (36.0-47.0) Mean Corpuscular Volume 78 fL (79-100) Mean Corpuscular Hemoglobin 26 pg (25-35) Mean Corpuscular Hemoglobin Concent 33 g/dL (31-37) Red Cell Distribution Width 20.0 % (11.5-14.5) Platelet Count 314 x10^3/uL (140-400) Neutrophils (%) (Auto) 77 % (31-73) Lymphocytes (%) (Auto) 13 % (24-48) Monocytes (%) (Auto) 4 % (0-9) Eosinophils (%) (Auto) 5 % (0-3) Basophils (%) (Auto) 0 % (0-3) Neutrophils # (Auto) 7.7 x10^3/uL (1.8-7.7) Lymphocytes # (Auto) 1.3 x10^3/uL (1.0-4.8) Monocytes # (Auto) 0.4 x10^3/uL (0.0-1.1) Eosinophils # (Auto) 0.5 x10^3/uL (0.0-0.7) Basophils # (Auto) 0.0 x10^3/uL (0.0-0.2) Sodium Level 142 mmol/L (136-145) Potassium Level 3.8 mmol/L (3.5-5.1) Chloride Level 103 mmol/L (98-107) Carbon Dioxide Level 36 mmol/L (21-32) Anion Gap 3 (6-14) Blood Urea Nitrogen 13 mg/dL (7-20) Creatinine 0.4 mg/dL (0.6-1.0) Estimated GFR (Cockcroft-Gault) 176.8 BUN/Creatinine Ratio 33 (6-20) Glucose Level 153 mg/dL (70-99) Calcium Level 8.4 mg/dL (8.5-10.1) Total Bilirubin 0.6 mg/dL (0.2-1.0) Aspartate Amino Transf (AST/SGOT) 15 U/L (15-37) Alanine Aminotransferase (ALT/SGPT) 22 U/L (14-59) Alkaline Phosphatase 92 U/L (46-116) Total Protein 5.8 g/dL (6.4-8.2) Albumin 1.2 g/dL (3.4-5.0) Albumin/Globulin Ratio 0.3 (1.0-1.7) Test 07/09/21 06:11 Glucose (Fingerstick) 150 mg/dL (70-99) Comment Review of Relevant I have reviewed the following items man (where applicable) has been applied. Medications: Current Medications Medications (Trade) Dose Ordered Sig/Jun Route PRN Reason Start Time Stop Time Status Last Admin Dose Admin Fentanyl Citrate 55 ml @ 1.5 mls/hr CONT PRN IV SEE PROTOCOL 07/08/21 23:00 07/08/21 23:10 Furosemide (Lasix) 40 mg DAILY IVP 07/09/21 09:00 07/09/21 08:12 Justifications for Admission Other Justification Acute hypoxic respiratory failure and Covid pneumonia DUNG MCDONOUGH MD Jul 09, 2021 09:35
--- NOTE | 2021-07-09 09:37 | PDOC ---
PULMONARY PROGRESS NOTES DATE: 07/09/21 TIME: 09:34 Subjective Patient saturations have been low the last 24 hours T-max 99.4 Currently on 12 of PEEP 100% FiO2 Vitals Vital Signs Date Time Temp Pulse Resp B/P (MAP) Pulse Ox O2 Delivery O2 Flow Rate FiO2 07/09/21 08:13 66 104/48 07/09/21 07:00 18 87 Ventilator 07/09/21 04:00 99.4 99.4 07/08/21 15:52 40.0 Comments ros unable to obtain on vent sedated Lungs: Crackles Cardiovascular: S1 Abdomen: Soft Extremities: No Edema Skin: Warm Labs Laboratory Tests Test 07/07/21 12:11 07/07/21 17:30 07/07/21 20:54 07/08/21 00:25 Glucose (Fingerstick) 149 mg/dL (70-99) 119 mg/dL (70-99) 141 mg/dL (70-99) 148 mg/dL (70-99) Test 07/08/21 06:15 07/08/21 09:30 07/08/21 11:57 07/08/21 17:42 Glucose (Fingerstick) 153 mg/dL (70-99) 130 mg/dL (70-99) 146 mg/dL (70-99) O2 Saturation 81 % (92-99) Arterial Blood pH 7.32 (7.35-7.45) Arterial Blood pCO2 at Patient Temp 70 mmHg (35-46) Arterial Blood pO2 at Patient Temp 49 mmHg (75-108) Arterial Blood HCO3 36 mmol/L (21-28) Arterial Blood Base Excess 8 mmol/L (-3-3) FiO2 100% vent Test 07/09/21 00:07 07/09/21 05:20 07/09/21 06:11 Glucose (Fingerstick) 145 mg/dL (70-99) 150 mg/dL (70-99) White Blood Count 10.0 x10^3/uL (4.0-11.0) Red Blood Count 3.18 x10^6/uL (3.50-5.40) Hemoglobin 8.1 g/dL (12.0-15.5) Hematocrit 24.8 % (36.0-47.0) Mean Corpuscular Volume 78 fL (79-100) Mean Corpuscular Hemoglobin 26 pg (25-35) Mean Corpuscular Hemoglobin Concent 33 g/dL (31-37) Red Cell Distribution Width 20.0 % (11.5-14.5) Platelet Count 314 x10^3/uL (140-400) Neutrophils (%) (Auto) 77 % (31-73) Lymphocytes (%) (Auto) 13 % (24-48) Monocytes (%) (Auto) 4 % (0-9) Eosinophils (%) (Auto) 5 % (0-3) Basophils (%) (Auto) 0 % (0-3) Neutrophils # (Auto) 7.7 x10^3/uL (1.8-7.7) Lymphocytes # (Auto) 1.3 x10^3/uL (1.0-4.8) Monocytes # (Auto) 0.4 x10^3/uL (0.0-1.1) Eosinophils # (Auto) 0.5 x10^3/uL (0.0-0.7) Basophils # (Auto) 0.0 x10^3/uL (0.0-0.2) Sodium Level 142 mmol/L (136-145) Potassium Level 3.8 mmol/L (3.5-5.1) Chloride Level 103 mmol/L (98-107) Carbon Dioxide Level 36 mmol/L (21-32) Anion Gap 3 (6-14) Blood Urea Nitrogen 13 mg/dL (7-20) Creatinine 0.4 mg/dL (0.6-1.0) Estimated GFR (Cockcroft-Gault) 176.8 BUN/Creatinine Ratio 33 (6-20) Glucose Level 153 mg/dL (70-99) Calcium Level 8.4 mg/dL (8.5-10.1) Total Bilirubin 0.6 mg/dL (0.2-1.0) Aspartate Amino Transf (AST/SGOT) 15 U/L (15-37) Alanine Aminotransferase (ALT/SGPT) 22 U/L (14-59) Alkaline Phosphatase 92 U/L (46-116) Total Protein 5.8 g/dL (6.4-8.2) Albumin 1.2 g/dL (3.4-5.0) Albumin/Globulin Ratio 0.3 (1.0-1.7) Laboratory Tests Test 07/08/21 11:57 07/08/21 17:42 07/09/21 00:07 07/09/21 05:20 Glucose (Fingerstick) 130 mg/dL (70-99) 146 mg/dL (70-99) 145 mg/dL (70-99) White Blood Count 10.0 x10^3/uL (4.0-11.0) Red Blood Count 3.18 x10^6/uL (3.50-5.40) Hemoglobin 8.1 g/dL (12.0-15.5) Hematocrit 24.8 % (36.0-47.0) Mean Corpuscular Volume 78 fL (79-100) Mean Corpuscular Hemoglobin 26 pg (25-35) Mean Corpuscular Hemoglobin Concent 33 g/dL (31-37) Red Cell Distribution Width 20.0 % (11.5-14.5) Platelet Count 314 x10^3/uL (140-400) Neutrophils (%) (Auto) 77 % (31-73) Lymphocytes (%) (Auto) 13 % (24-48) Monocytes (%) (Auto) 4 % (0-9) Eosinophils (%) (Auto) 5 % (0-3) Basophils (%) (Auto) 0 % (0-3) Neutrophils # (Auto) 7.7 x10^3/uL (1.8-7.7) Lymphocytes # (Auto) 1.3 x10^3/uL (1.0-4.8) Monocytes # (Auto) 0.4 x10^3/uL (0.0-1.1) Eosinophils # (Auto) 0.5 x10^3/uL (0.0-0.7) Basophils # (Auto) 0.0 x10^3/uL (0.0-0.2) Sodium Level 142 mmol/L (136-145) Potassium Level 3.8 mmol/L (3.5-5.1) Chloride Level 103 mmol/L (98-107) Carbon Dioxide Level 36 mmol/L (21-32) Anion Gap 3 (6-14) Blood Urea Nitrogen 13 mg/dL (7-20) Creatinine 0.4 mg/dL (0.6-1.0) Estimated GFR (Cockcroft-Gault) 176.8 BUN/Creatinine Ratio 33 (6-20) Glucose Level 153 mg/dL (70-99) Calcium Level 8.4 mg/dL (8.5-10.1) Total Bilirubin 0.6 mg/dL (0.2-1.0) Aspartate Amino Transf (AST/SGOT) 15 U/L (15-37) Alanine Aminotransferase (ALT/SGPT) 22 U/L (14-59) Alkaline Phosphatase 92 U/L (46-116) Total Protein 5.8 g/dL (6.4-8.2) Albumin 1.2 g/dL (3.4-5.0) Albumin/Globulin Ratio 0.3 (1.0-1.7) Test 07/09/21 06:11 Glucose (Fingerstick) 150 mg/dL (70-99) Medications Active Scripts Medications Dose Route/Sig Max Daily Dose Days Date Category Cyclobenzaprine Hcl 10 Mg Tablet 10 Mg PO TID 06/15/21 Reported Meloxicam 15 Mg Tablet 15 Mg PO DAILY 06/15/21 Reported Fluticasone Propionate Nasal [place] (Fluticasone Propionate) 16 Gm [place].susp 1 [place] NS DAILY 06/15/21 Reported Loratadine 10 Mg Tablet 10 Mg PO DAILY 06/15/21 Reported Furosemide 20 Mg Tablet 20 Mg PO DAILY 06/15/21 Reported Gabapentin (Gabapentin) 300 Mg Capsule 300 Mg PO TID 06/15/21 Reported Gabapentin (Gabapentin) 300 Mg Capsule 300 Mg PO TID 06/15/21 Reported Lisinopril 5 Mg Tablet 1 Tab PO DAILY 06/15/21 Reported Metformin Hcl 500 Mg Tablet 500 Mg PO BIDWMEALS 06/15/21 Reported Ozempic (Semaglutide) 0.25 Mg/0.2 Ml Pen.injctr 0.25 Mg SQ WEEKLY 06/15/21 Reported Impression . 1. Acute hypoxic respiratory failure secondary to ARDS/COVID-19 infection, worsening intubated 06/19/21. 2. Abnormal CT of chest secondary to COVID-19 infection/ARDS 3. Diabetes type 2 with hyperglycemia 4. Hypotension, secondary to sepsis 5. Hyperlipdemia 6. Obesity 7. sepsis with Proteus mirabilis bacteremia and pneumonia 8. Proteus mirabilis in the sputum. 9 gram-negative camilo bacteremia Proteus Chest x-ray reviewed, diffuse bilateral opacities unchanged Plan . Updated 07/09 Clinically patient not improving Continue empiric antibiotics Continue supportive care Discussed with Petar HAJI x3 days Follow chest x-ray Increased rate updated 07/08 We will continue sedation maintain patient in sync with ventilator Antibiotics meropenem per ID Follow-up on cultures Nutritional support DVT GI prophylaxis Status post remdesivir Updated 07/07 We will continue current support Chest x-ray currently pending Wean pressors as tolerated Currently on 100% FiO2 13 and PEEP Finish the course of steroids Low-grade fever Antibiotics per ID Monitor labs DVT GI prophylaxis Status post remdesivir ABG from yesterday noted Patient remains full code CALVIN CAZARES MD Jul 09, 2021 09:37
--- NOTE | 2021-07-09 13:44 | PDOC ---
Infectious Disease Note Subjective Subjective Intubated/ sedated Afebile last 24 hrs ROS ROS no n/v/d/sob Vital Sign Vital Signs Vital Signs Date Time Temp Pulse Resp B/P (MAP) Pulse Ox O2 Delivery O2 Flow Rate FiO2 07/09/21 12:00 Mechanical Ventilator 07/09/21 11:00 70 18 101/46 (64) 82 07/09/21 08:00 98.8 98.8 07/08/21 15:52 40.0 Physical Exam PHYSICAL EXAM GENERAL: Sedated, orally intubated female, not in distress. VITAL SIGNS: Stable. HEENT: Both pupils are round and reacting. No conjunctival lesion. Mouth cannot be visualized, has orally intubated. NECK: Supple, no JVP, no lymphadenopathy. LUNGS: Clear. HEART: S1, S2 regular. ABDOMEN: Soft, nontender, no organomegaly. EXTREMITIES: No edema, cyanosis. SKIN: Unremarkable. NEUROLOGIC: The patient is sedated, intubated, neurologically unable to assess. Labs Lab Laboratory Tests Test 07/08/21 17:42 07/09/21 00:07 07/09/21 05:20 07/09/21 06:11 Glucose (Fingerstick) 146 mg/dL (70-99) 145 mg/dL (70-99) 150 mg/dL (70-99) White Blood Count 10.0 x10^3/uL (4.0-11.0) Red Blood Count 3.18 x10^6/uL (3.50-5.40) Hemoglobin 8.1 g/dL (12.0-15.5) Hematocrit 24.8 % (36.0-47.0) Mean Corpuscular Volume 78 fL (79-100) Mean Corpuscular Hemoglobin 26 pg (25-35) Mean Corpuscular Hemoglobin Concent 33 g/dL (31-37) Red Cell Distribution Width 20.0 % (11.5-14.5) Platelet Count 314 x10^3/uL (140-400) Neutrophils (%) (Auto) 77 % (31-73) Lymphocytes (%) (Auto) 13 % (24-48) Monocytes (%) (Auto) 4 % (0-9) Eosinophils (%) (Auto) 5 % (0-3) Basophils (%) (Auto) 0 % (0-3) Neutrophils # (Auto) 7.7 x10^3/uL (1.8-7.7) Lymphocytes # (Auto) 1.3 x10^3/uL (1.0-4.8) Monocytes # (Auto) 0.4 x10^3/uL (0.0-1.1) Eosinophils # (Auto) 0.5 x10^3/uL (0.0-0.7) Basophils # (Auto) 0.0 x10^3/uL (0.0-0.2) Sodium Level 142 mmol/L (136-145) Potassium Level 3.8 mmol/L (3.5-5.1) Chloride Level 103 mmol/L (98-107) Carbon Dioxide Level 36 mmol/L (21-32) Anion Gap 3 (6-14) Blood Urea Nitrogen 13 mg/dL (7-20) Creatinine 0.4 mg/dL (0.6-1.0) Estimated GFR (Cockcroft-Gault) 176.8 BUN/Creatinine Ratio 33 (6-20) Glucose Level 153 mg/dL (70-99) Calcium Level 8.4 mg/dL (8.5-10.1) Total Bilirubin 0.6 mg/dL (0.2-1.0) Aspartate Amino Transf (AST/SGOT) 15 U/L (15-37) Alanine Aminotransferase (ALT/SGPT) 22 U/L (14-59) Alkaline Phosphatase 92 U/L (46-116) Total Protein 5.8 g/dL (6.4-8.2) Albumin 1.2 g/dL (3.4-5.0) Albumin/Globulin Ratio 0.3 (1.0-1.7) Test 07/09/21 12:16 Glucose (Fingerstick) 132 mg/dL (70-99) Micro Sputum culture Proteus Blood culture Proteus Urine has yeast Objective Assessment 1. Fever 2. COVID-19 infection. 3. Pulmonary infiltrate. 4. Respiratory failure. 5. Leukocytosis. 6. Morbid obesity. 7 G neg camilo bacteremia Proteus Plan Plan of Care Cont Merrem supportive care CT abd and pelvis pending ROBERTO HADDAD MD Jul 09, 2021 13:43
[2021-07-09 16:29] LABS: PCO2 ABG 62 mmHg (35-46); PO2 ABG 46 mmHg (75-108)
[2021-07-09 16:30] LABS: FIO2 ABG 100% VENT
[2021-07-10] VITALS (24 sets, daily range): BP systolic 100–115; BP diastolic 46–55
[2021-07-10] MEDS: PROPOFOL 100 ML IV PRN ×10 (00:13→22:49)
[2021-07-10] MEDS: fentaNYL HIGH DOSE PCA 55 ML IV PRN (00:14)
[2021-07-10] MEDS: DEXMEDETOMIDINE 400 MCG in IV NORMAL SALINE 100ML 96 ML IV PRN ×8 (00:14→21:17)
[2021-07-10] MEDS: MIDAZOLAM 100mg/100ml NS BAG 100 ML IV PRN ×2 (03:17→11:57)
[2021-07-10] MEDS: NORCURON - VECURONIUM 50 MG in IV NORMAL SALINE 50ML 50 ML IV PRN ×5 (03:18→21:15)
[2021-07-10] MEDS: INSULIN LISPRO 300 UNITS/3 ML VIAL. SQ SCH ×3 (05:12→17:40)
[2021-07-10] MEDS: MEROPENEM 1 GM in IV NORMAL SALINE 100ML 100 ML IV SCH ×3 (05:46→22:08)
[2021-07-10 06:54] LABS: BASO # 0.1 x10^3/uL (0.0-0.2); BASO % 1 % (0-3); EOS # 0.6 x10^3/uL (0.0-0.7); EOS % 5 % (0-3); HEMATOCRIT 26.8 % (36.0-47.0); HEMOGLOBIN 8.8 g/dL (12.0-15.5); LYMPH # 1.7 x10^3/uL (1.0-4.8); LYMPH % 13 % (24-48); MEAN CORPUSCULAR HEMOGLOBIN 26 pg (25-35); MEAN CORPUSCULAR HGB CONC 33 g/dL (31-37); MEAN CORPUSCULAR VOLUME 78 fL (79-100); MONO # 0.4 x10^3/uL (0.0-1.1); MONO % 3 % (0-9); NEUT # 10.4 x10^3/uL (1.8-7.7); NEUT % 78 % (31-73); PLATELET COUNT 401 x10^3/uL (140-400); RED BLOOD COUNT 3.43 x10^6/uL (3.50-5.40); RED CELL DISTRIBUTION WIDTH 20.4 % (11.5-14.5); WHITE BLOOD COUNT 13.3 x10^3/uL (4.0-11.0)
[2021-07-10 07:16] LABS: CALCIUM 8.2 mg/dL (8.5-10.1); CREATININE 0.4 mg/dL (0.6-1.0); GFR 176.8; POTASSIUM 3.6 mmol/L (3.5-5.1)
[2021-07-10] MEDS: PANTOPRAZOLE IV PUSH 40 MG VIAL. IVP SCH (07:27)
[2021-07-10] MEDS: FUROSEMIDE 40 MG/4 ML VIAL. IVP SCH (07:28)
[2021-07-10] MEDS: ENOXAPARIN 40 MG/0.4 ML SYRINGE. SQ SCH ×2 (07:28→20:58)
[2021-07-10] MEDS: ZINC SULFATE 220 MG CAPSULE. PO SCH (07:28)
[2021-07-10] MEDS: THIAMINE 100 MG TABLET. PO SCH (07:28)
[2021-07-10] MEDS: ASCORBIC ACID 1,000 MG TABLET PO SCH ×3 (07:28→20:58)
[2021-07-10] MEDS: GABAPENTIN 300 MG CAPSULE. PO SCH ×3 (07:29→20:58)
[2021-07-10 07:51] LABS: BASE EXCESS ABG 7 mmol/L (-3-3); HCO3 ABG 34 mmol/L (21-28); SAT O2 ABG 75 % (92-99)
[2021-07-10 07:52] LABS: FIO2 ABG 100; PCO2 ABG 63 mmHg (35-46); PO2 ABG 45 mmHg (75-108)
--- NOTE | 2021-07-10 08:38 | PDOC ---
Infectious Disease Note Subjective Subjective Intubated/ sedated Having low-grade fever ROS ROS No nausea vomiting Vital Sign Vital Signs Vital Signs Date Time Temp Pulse Resp B/P (MAP) Pulse Ox O2 Delivery O2 Flow Rate FiO2 07/10/21 08:00 Mechanical Ventilator 07/10/21 08:00 99.8 85 20 113/52 (72) 80 99.8 Physical Exam PHYSICAL EXAM GENERAL: Sedated, orally intubated female, not in distress. VITAL SIGNS: Stable. HEENT: Both pupils are round and reacting. No conjunctival lesion. Mouth cannot be visualized, has orally intubated. NECK: Supple, no JVP, no lymphadenopathy. LUNGS: Clear. HEART: S1, S2 regular. ABDOMEN: Soft, nontender, no organomegaly. EXTREMITIES: No edema, cyanosis. SKIN: Unremarkable. NEUROLOGIC: The patient is sedated, intubated, neurologically unable to assess. Labs Lab Laboratory Tests Test 07/09/21 09:30 07/09/21 12:16 07/09/21 17:38 07/09/21 23:39 O2 Saturation 78 % (92-99) Arterial Blood pH 7.37 (7.35-7.45) Arterial Blood pCO2 at Patient Temp 62 mmHg (35-46) Arterial Blood pO2 at Patient Temp 46 mmHg (75-108) Arterial Blood HCO3 35 mmol/L (21-28) Arterial Blood Base Excess 8 mmol/L (-3-3) FiO2 100% vent Glucose (Fingerstick) 132 mg/dL (70-99) 147 mg/dL (70-99) 142 mg/dL (70-99) Test 07/10/21 05:11 07/10/21 05:45 07/10/21 07:40 Glucose (Fingerstick) 135 mg/dL (70-99) White Blood Count 13.3 x10^3/uL (4.0-11.0) Red Blood Count 3.43 x10^6/uL (3.50-5.40) Hemoglobin 8.8 g/dL (12.0-15.5) Hematocrit 26.8 % (36.0-47.0) Mean Corpuscular Volume 78 fL (79-100) Mean Corpuscular Hemoglobin 26 pg (25-35) Mean Corpuscular Hemoglobin Concent 33 g/dL (31-37) Red Cell Distribution Width 20.4 % (11.5-14.5) Platelet Count 401 x10^3/uL (140-400) Neutrophils (%) (Auto) 78 % (31-73) Lymphocytes (%) (Auto) 13 % (24-48) Monocytes (%) (Auto) 3 % (0-9) Eosinophils (%) (Auto) 5 % (0-3) Basophils (%) (Auto) 1 % (0-3) Neutrophils # (Auto) 10.4 x10^3/uL (1.8-7.7) Lymphocytes # (Auto) 1.7 x10^3/uL (1.0-4.8) Monocytes # (Auto) 0.4 x10^3/uL (0.0-1.1) Eosinophils # (Auto) 0.6 x10^3/uL (0.0-0.7) Basophils # (Auto) 0.1 x10^3/uL (0.0-0.2) Sodium Level 140 mmol/L (136-145) Potassium Level 3.6 mmol/L (3.5-5.1) Chloride Level 101 mmol/L (98-107) Carbon Dioxide Level 38 mmol/L (21-32) Anion Gap 1 (6-14) Blood Urea Nitrogen 12 mg/dL (7-20) Creatinine 0.4 mg/dL (0.6-1.0) Estimated GFR (Cockcroft-Gault) 176.8 Glucose Level 138 mg/dL (70-99) Calcium Level 8.2 mg/dL (8.5-10.1) O2 Saturation 75 % (92-99) Arterial Blood pH 7.35 (7.35-7.45) Arterial Blood pCO2 at Patient Temp 63 mmHg (35-46) Arterial Blood pO2 at Patient Temp 45 mmHg (75-108) Arterial Blood HCO3 34 mmol/L (21-28) Arterial Blood Base Excess 7 mmol/L (-3-3) FiO2 100 Micro Sputum culture Proteus Blood culture Proteus Urine has yeast Objective Assessment 1. Fever 2. COVID-19 infection. 3. Pulmonary infiltrate. 4. Respiratory failure. 5. Leukocytosis. 6. Morbid obesity. 7 G neg camilo bacteremia Proteus Plan Plan of Care Cont Merrem supportive care CT abd and pelvis pending Now DNR ROBERTO HADDAD MD Jul 10, 2021 08:38
[2021-07-10] MEDS: LISINOPRIL 5 MG TABLET. PO SCH (08:57)
[2021-07-10] MEDS: INSULIN GLARGINE SYRINGE. SQ SCH ×2 (09:08→20:59)
--- NOTE | 2021-07-10 09:48 | RAD ---
XR CHEST 1V INDICATION: Reason: RF/ARDS / Spl. Instructions: / History: . COMPARISON STUDY: 07/08/2021. FINDINGS: Life Support Devices: Stable endotracheal tube, enteric tube, right PICC. Lungs: Low lung volume. Stable diffuse bilateral opacities. Pleura: No pleural effusion or pneumothorax. Heart and Mediastinum: Stable cardiomediastinal silhouette and great vessels. Bones and Soft Tissues: Stable regional skeleton and soft tissues. IMPRESSION: 1. Stable life support devices. 2. Stable diffuse bilateral opacities. Electronically signed by: Jose Antonio Astorga MD (07/10/2021 9:46 AM) [id number]
--- NOTE | 2021-07-10 10:38 | PDOC ---
PULMONARY PROGRESS NOTES DATE: 07/10/21 TIME: 10:37 Subjective Patient sedated Currently on pressure control, driving pressure of 40 FiO2 100%, 12 of PEEP, tidal volumes of approximately 450 Vitals Vital Signs Date Time Temp Pulse Resp B/P (MAP) Pulse Ox O2 Delivery O2 Flow Rate FiO2 07/10/21 10:00 86 20 115/55 (75) 81 Ventilator 07/10/21 08:00 99.8 99.8 Comments ros unable to obtain on vent sedated Lungs: Crackles Cardiovascular: S1 Abdomen: Soft Extremities: No Edema Skin: Warm Labs Laboratory Tests Test 07/08/21 11:57 07/08/21 17:42 07/09/21 00:07 07/09/21 05:20 Glucose (Fingerstick) 130 mg/dL (70-99) 146 mg/dL (70-99) 145 mg/dL (70-99) White Blood Count 10.0 x10^3/uL (4.0-11.0) Red Blood Count 3.18 x10^6/uL (3.50-5.40) Hemoglobin 8.1 g/dL (12.0-15.5) Hematocrit 24.8 % (36.0-47.0) Mean Corpuscular Volume 78 fL (79-100) Mean Corpuscular Hemoglobin 26 pg (25-35) Mean Corpuscular Hemoglobin Concent 33 g/dL (31-37) Red Cell Distribution Width 20.0 % (11.5-14.5) Platelet Count 314 x10^3/uL (140-400) Neutrophils (%) (Auto) 77 % (31-73) Lymphocytes (%) (Auto) 13 % (24-48) Monocytes (%) (Auto) 4 % (0-9) Eosinophils (%) (Auto) 5 % (0-3) Basophils (%) (Auto) 0 % (0-3) Neutrophils # (Auto) 7.7 x10^3/uL (1.8-7.7) Lymphocytes # (Auto) 1.3 x10^3/uL (1.0-4.8) Monocytes # (Auto) 0.4 x10^3/uL (0.0-1.1) Eosinophils # (Auto) 0.5 x10^3/uL (0.0-0.7) Basophils # (Auto) 0.0 x10^3/uL (0.0-0.2) Sodium Level 142 mmol/L (136-145) Potassium Level 3.8 mmol/L (3.5-5.1) Chloride Level 103 mmol/L (98-107) Carbon Dioxide Level 36 mmol/L (21-32) Anion Gap 3 (6-14) Blood Urea Nitrogen 13 mg/dL (7-20) Creatinine 0.4 mg/dL (0.6-1.0) Estimated GFR (Cockcroft-Gault) 176.8 BUN/Creatinine Ratio 33 (6-20) Glucose Level 153 mg/dL (70-99) Calcium Level 8.4 mg/dL (8.5-10.1) Total Bilirubin 0.6 mg/dL (0.2-1.0) Aspartate Amino Transf (AST/SGOT) 15 U/L (15-37) Alanine Aminotransferase (ALT/SGPT) 22 U/L (14-59) Alkaline Phosphatase 92 U/L (46-116) Total Protein 5.8 g/dL (6.4-8.2) Albumin 1.2 g/dL (3.4-5.0) Albumin/Globulin Ratio 0.3 (1.0-1.7) Test 07/09/21 06:11 07/09/21 09:30 07/09/21 12:16 07/09/21 17:38 Glucose (Fingerstick) 150 mg/dL (70-99) 132 mg/dL (70-99) 147 mg/dL (70-99) O2 Saturation 78 % (92-99) Arterial Blood pH 7.37 (7.35-7.45) Arterial Blood pCO2 at Patient Temp 62 mmHg (35-46) Arterial Blood pO2 at Patient Temp 46 mmHg (75-108) Arterial Blood HCO3 35 mmol/L (21-28) Arterial Blood Base Excess 8 mmol/L (-3-3) FiO2 100% vent Test 07/09/21 23:39 07/10/21 05:11 07/10/21 05:45 07/10/21 07:40 Glucose (Fingerstick) 142 mg/dL (70-99) 135 mg/dL (70-99) White Blood Count 13.3 x10^3/uL (4.0-11.0) Red Blood Count 3.43 x10^6/uL (3.50-5.40) Hemoglobin 8.8 g/dL (12.0-15.5) Hematocrit 26.8 % (36.0-47.0) Mean Corpuscular Volume 78 fL (79-100) Mean Corpuscular Hemoglobin 26 pg (25-35) Mean Corpuscular Hemoglobin Concent 33 g/dL (31-37) Red Cell Distribution Width 20.4 % (11.5-14.5) Platelet Count 401 x10^3/uL (140-400) Neutrophils (%) (Auto) 78 % (31-73) Lymphocytes (%) (Auto) 13 % (24-48) Monocytes (%) (Auto) 3 % (0-9) Eosinophils (%) (Auto) 5 % (0-3) Basophils (%) (Auto) 1 % (0-3) Neutrophils # (Auto) 10.4 x10^3/uL (1.8-7.7) Lymphocytes # (Auto) 1.7 x10^3/uL (1.0-4.8) Monocytes # (Auto) 0.4 x10^3/uL (0.0-1.1) Eosinophils # (Auto) 0.6 x10^3/uL (0.0-0.7) Basophils # (Auto) 0.1 x10^3/uL (0.0-0.2) Sodium Level 140 mmol/L (136-145) Potassium Level 3.6 mmol/L (3.5-5.1) Chloride Level 101 mmol/L (98-107) Carbon Dioxide Level 38 mmol/L (21-32) Anion Gap 1 (6-14) Blood Urea Nitrogen 12 mg/dL (7-20) Creatinine 0.4 mg/dL (0.6-1.0) Estimated GFR (Cockcroft-Gault) 176.8 Glucose Level 138 mg/dL (70-99) Calcium Level 8.2 mg/dL (8.5-10.1) O2 Saturation 75 % (92-99) Arterial Blood pH 7.35 (7.35-7.45) Arterial Blood pCO2 at Patient Temp 63 mmHg (35-46) Arterial Blood pO2 at Patient Temp 45 mmHg (75-108) Arterial Blood HCO3 34 mmol/L (21-28) Arterial Blood Base Excess 7 mmol/L (-3-3) FiO2 100 Laboratory Tests Test 07/09/21 12:16 07/09/21 17:38 07/09/21 23:39 07/10/21 05:11 Glucose (Fingerstick) 132 mg/dL (70-99) 147 mg/dL (70-99) 142 mg/dL (70-99) 135 mg/dL (70-99) Test 07/10/21 05:45 07/10/21 07:40 White Blood Count 13.3 x10^3/uL (4.0-11.0) Red Blood Count 3.43 x10^6/uL (3.50-5.40) Hemoglobin 8.8 g/dL (12.0-15.5) Hematocrit 26.8 % (36.0-47.0) Mean Corpuscular Volume 78 fL (79-100) Mean Corpuscular Hemoglobin 26 pg (25-35) Mean Corpuscular Hemoglobin Concent 33 g/dL (31-37) Red Cell Distribution Width 20.4 % (11.5-14.5) Platelet Count 401 x10^3/uL (140-400) Neutrophils (%) (Auto) 78 % (31-73) Lymphocytes (%) (Auto) 13 % (24-48) Monocytes (%) (Auto) 3 % (0-9) Eosinophils (%) (Auto) 5 % (0-3) Basophils (%) (Auto) 1 % (0-3) Neutrophils # (Auto) 10.4 x10^3/uL (1.8-7.7) Lymphocytes # (Auto) 1.7 x10^3/uL (1.0-4.8) Monocytes # (Auto) 0.4 x10^3/uL (0.0-1.1) Eosinophils # (Auto) 0.6 x10^3/uL (0.0-0.7) Basophils # (Auto) 0.1 x10^3/uL (0.0-0.2) Sodium Level 140 mmol/L (136-145) Potassium Level 3.6 mmol/L (3.5-5.1) Chloride Level 101 mmol/L (98-107) Carbon Dioxide Level 38 mmol/L (21-32) Anion Gap 1 (6-14) Blood Urea Nitrogen 12 mg/dL (7-20) Creatinine 0.4 mg/dL (0.6-1.0) Estimated GFR (Cockcroft-Gault) 176.8 Glucose Level 138 mg/dL (70-99) Calcium Level 8.2 mg/dL (8.5-10.1) O2 Saturation 75 % (92-99) Arterial Blood pH 7.35 (7.35-7.45) Arterial Blood pCO2 at Patient Temp 63 mmHg (35-46) Arterial Blood pO2 at Patient Temp 45 mmHg (75-108) Arterial Blood HCO3 34 mmol/L (21-28) Arterial Blood Base Excess 7 mmol/L (-3-3) FiO2 100 Medications Active Scripts Medications Dose Route/Sig Max Daily Dose Days Date Category Cyclobenzaprine Hcl 10 Mg Tablet 10 Mg PO TID 06/15/21 Reported Meloxicam 15 Mg Tablet 15 Mg PO DAILY 06/15/21 Reported Fluticasone Propionate Nasal Kelly (Fluticasone Propionate) 16 Gm Kelly.susp 1 Kelly NS DAILY 06/15/21 Reported Loratadine 10 Mg Tablet 10 Mg PO DAILY 06/15/21 Reported Furosemide 20 Mg Tablet 20 Mg PO DAILY 06/15/21 Reported Gabapentin (Gabapentin) 300 Mg Capsule 300 Mg PO TID 06/15/21 Reported Gabapentin (Gabapentin) 300 Mg Capsule 300 Mg PO TID 06/15/21 Reported Lisinopril 5 Mg Tablet 1 Tab PO DAILY 06/15/21 Reported Metformin Hcl 500 Mg Tablet 500 Mg PO BIDWMEALS 06/15/21 Reported Ozempic (Semaglutide) 0.25 Mg/0.2 Ml Pen.injctr 0.25 Mg SQ WEEKLY 06/15/21 Reported Impression . 1. Acute hypoxic respiratory failure secondary to ARDS/COVID-19 infection, worsening intubated 06/19/21. 2. Abnormal CT of chest secondary to COVID-19 infection/ARDS 3. Diabetes type 2 with hyperglycemia 4. Hypotension, secondary to sepsis 5. Hyperlipdemia 6. Obesity 7. sepsis with Proteus mirabilis bacteremia and pneumonia 8. Proteus mirabilis in the sputum. 9 gram-negative camilo bacteremia Proteus Chest x-ray reviewed, diffuse bilateral opacities unchanged Plan . Updated 07/10 Having low-grade fever antibiotics per ID currently on meropenem Continue pressure control ventilation CT abdomen pelvis pending Long-term prognosis poor Started on IV Lasix yesterday DVT GI prophylaxis Status post remdesivir Total cumulative critical care time of 30 minutes with no overlap Updated 07/09 Clinically patient not improving Continue empiric antibiotics Continue supportive care Discussed with RN, Petar x3 days Follow chest x-ray Increased rate updated 07/08 We will continue sedation maintain patient in sync with ventilator Antibiotics meropenem per ID Follow-up on cultures Nutritional support DVT GI prophylaxis Status post remdesivir CALVIN CAZARES MD Jul 10, 2021 10:38
--- NOTE | 2021-07-10 14:16 | PDOC ---
[employer] PROGRESS NOTE Date of Service DOS: DATE: 07/10/21 TIME: 14:06 Chief Complaint Chief Complaint Acute hypoxic respiratory failure requiring BiPAP and subsequent intubation - due to COVID 19 with ARDS COVID-19 pneumonia Morbid obesity History of diabetes mellitus type 2 History of hypertension Severe malnutrition Septic shock Gram negative bacteremia - proteus History of Present Illness History of Present Illness Ms Pierce is a transfer from [facility] in [facility], 40-year-old female with past medical history of diabetes, hypertension, dyslipidemia and morbid obesity who complains of shortness of breath 1 week ago and went to urgent care and found out that she was positive for Covid. She came in at 5:00 in the morning at [facility] is very hypoxic and was found to be her oxygen saturation was 68% she was put on a nonrebreather 15 L and she was improved to 90 to 93%. Patient is xys-[id number]-wlwbahic. Patient is a poor historian. She does not know what kind of medication she takes for her medical history. 06/15: In the ICU. She was face time talking with family members. She was still on nonrebreather. Pulmonary consulted. 06/16: On Vapotherm. No major complaints. 06/17: Remains on Vapotherm although O2 requirement decreasing. Continue current plan. 06/18: On 40 L Vapotherm and now requiring NRB in addition. Afebrile and on broad-spectrum antibiotics. Remdesivir finishes today. 06/19: Intubated overnight in ICU. Afebrile. Currently breathing FiO2 100%. Completed remdesivir. We will continue IV steroids and antibiotics. 06/20: Low-grade fever overnight (T-max 99.7 F). Remains on vent, FiO2 90%, PEEP 10. Continue treatment with IV steroids and antibiotics. 06/21: Afebrile. On vent with FiO2 80%, PEEP 10. Cont treatment with antibiotics steroids total of 10 day course (steroid taper to begin 06/24). 06/22: Afebrile. Remains on ventilator with FiO2 70%, PEEP 10. Completed remdesivir. Continue antibiotics, steroids with slow taper. 06/23: Afebrile. On vent with FiO2 of 70, PEEP 10. Continue antibiotics for diffuse bilateral opacities. Continue steroids with slow taper 06/24: Afebrile. On vent with FiO2 60%, PEEP 9. Continue antibiotics. Today is day 10 of steroids; will begin Solu-Medrol taper tomorrow. 06/25: On vent with FiO2 65, PEEP 9. Afebrile. Completed 10 days of steroids; will begin Solu-Medrol taper today at 60 mg twice daily. 06/26: Intubated and sedated vent at 20/450/70/9. Insulin dose to 10 units twice daily. Solu-Medrol decreased to 40 mg daily. Cont with IV Lasix 06/27: Intubated and sedated. Vent settings at assist control at saturating 97%. Vent settings set at 16/80/9. ABG at 7.4 8/58/32. 06/28: No acute events overnight. Patient continues to be intubated and sedated. Saturating 90% on assist control with vent settings of 16/80/9. 06/29: No acute events overnight patient saturating 98% on vent settings of 10/80/9. 06/30: Patient did have hypotensive episode during the day which required a 500 NS bolus. Possibly needing vasopressors. pressure support/80/9. 07/01: No acute events overnight. Patient saturating 99% on vent settings of 14 pressure support/80/9. Urine output of 3.6 L in the last 24 hours. 07/02: Paralyzed for vent dysynchrony. Saturating 100% on 14/70/9. Fever of 101.1 this morning. 07/03: Febrile 101.1 F. 70% FiO2 and 9 PEEP. Still requiring vecuronium for vent dyssynchrony. ID consulted for sepsis, ?VAP 07/04: T-max 102.6 F last 24 hours, afebrile overnight. Peripheral culture and culture from PICC and sputum and urine culture obtained. Now on meropenem and Zyvox. More hypoxic, ABG 7.4 1/57/48, requiring FiO2 90% PEEP of 9 07/05: Afebrile. ABG 7.3/66/60, FiO2 100% PEEP of 12. Sputum and blood cx proteus mirabilis. Urine with some yeast. Daughter bedside this morning noted she is thinking of withdrawing care. D/w patient's sister and nephew bedside patient has been aggressively cared for cont current care. 07/06: Afebrile overnight. Sedated on ventilator FiO2 100% PEEP 12, O2 saturation 90% on pulse oximetry, still requiring vecuronium for vent dyssynchrony. Labs pending. 07/07: Afebrile. Hb 9.4, ABG 2.97/65.8/54.7. Peak pressures over 50s pressure control currently paralyzed. Lasix on hold received albumin. Still requiring Levophed. CT abdomen pelvis pending. 07/08: Febrile to 100.6 F overnight. Vecuronium wean attempted and significantly dyssynchrony. Still requiring Levophed support. FiO2 100% 12 peak pressures in the 50s. Afebrile overnight. More hypoxic overnight, I:E ratio 2-1, paralyzed on vecuronium for dyssynchrony. FiO2 100% PEEP 12. WBC 10, Hb 8.1, platelets 314. Met with daughter, Lala, bedside and sister over the phone the continued decline and grim prognosis and they have requested DNR. 07/10/2021: Patient seen and examined in ICU. On pressure control of 40 with a rat e of 20, 100% FiO2, and a PEEP of 12. SCD for DVT prophylaxis. Mccall to BSD. Rectal bag present. OG set at 40cc per hour. Sedated with fentanyl, propofol, and versed. On vecuronium drip. Triple lumen PICC line present on right arm. O2 saturation is still only 79%. Chest x-ray today showed stable life support devices and stable diffuse bilateral opacities. Discussed with RN. Chart r shayy. Vitals/I&O Vitals/I&O: Vital Signs Date Time Temp Pulse Resp B/P (MAP) Pulse Ox O2 Delivery O2 Flow Rate FiO2 07/10/21 13:29 80 Ventilator 07/10/21 13:00 90 20 110/49 (69) 07/10/21 12:00 100.0 100.0 I & O 07/09/21 07/09/21 07/10/21 15:00 23:00 07:00 Intake Total 320 ml 3255.08 ml 2305 ml Output Total 1620 ml 550 ml 650 ml Balance -1300 ml 2705.08 ml 1655 ml Physical Exam Physical Exam: GENERAL: Sedated, orally intubated female, not in distress. VITAL SIGNS: Stable. HEENT: Both pupils are round and reacting. No conjunctival lesion. Mouth cannot be visualized, has orally intubated. NECK: Supple, no JVP, no lymphadenopathy. LUNGS: Clear. HEART: S1, S2 regular. ABDOMEN: Soft, nontender, no organomegaly. EXTREMITIES: No edema, cyanosis. SKIN: Unremarkable. NEUROLOGIC: The patient is sedated, intubated, neurologically unable to assess. General: No acute distress, Other (Intubated and sedated) Heart: Regular rate, Normal S1, Normal S2 Lungs: Crackles Abdomen: Normal bowel sounds, Soft Extremities: No clubbing, No edema, Normal pulses Skin: No rashes, No significant lesion Labs Labs: Laboratory Tests Test 07/09/21 17:38 07/09/21 23:39 07/10/21 05:11 07/10/21 05:45 Glucose (Fingerstick) 147 mg/dL (70-99) 142 mg/dL (70-99) 135 mg/dL (70-99) White Blood Count 13.3 x10^3/uL (4.0-11.0) Red Blood Count 3.43 x10^6/uL (3.50-5.40) Hemoglobin 8.8 g/dL (12.0-15.5) Hematocrit 26.8 % (36.0-47.0) Mean Corpuscular Volume 78 fL (79-100) Mean Corpuscular Hemoglobin 26 pg (25-35) Mean Corpuscular Hemoglobin Concent 33 g/dL (31-37) Red Cell Distribution Width 20.4 % (11.5-14.5) Platelet Count 401 x10^3/uL (140-400) Neutrophils (%) (Auto) 78 % (31-73) Lymphocytes (%) (Auto) 13 % (24-48) Monocytes (%) (Auto) 3 % (0-9) Eosinophils (%) (Auto) 5 % (0-3) Basophils (%) (Auto) 1 % (0-3) Neutrophils # (Auto) 10.4 x10^3/uL (1.8-7.7) Lymphocytes # (Auto) 1.7 x10^3/uL (1.0-4.8) Monocytes # (Auto) 0.4 x10^3/uL (0.0-1.1) Eosinophils # (Auto) 0.6 x10^3/uL (0.0-0.7) Basophils # (Auto) 0.1 x10^3/uL (0.0-0.2) Sodium Level 140 mmol/L (136-145) Potassium Level 3.6 mmol/L (3.5-5.1) Chloride Level 101 mmol/L (98-107) Carbon Dioxide Level 38 mmol/L (21-32) Anion Gap 1 (6-14) Blood Urea Nitrogen 12 mg/dL (7-20) Creatinine 0.4 mg/dL (0.6-1.0) Estimated GFR (Cockcroft-Gault) 176.8 Glucose Level 138 mg/dL (70-99) Calcium Level 8.2 mg/dL (8.5-10.1) Test 07/10/21 07:40 07/10/21 11:38 O2 Saturation 75 % (92-99) Arterial Blood pH 7.35 (7.35-7.45) Arterial Blood pCO2 at Patient Temp 63 mmHg (35-46) Arterial Blood pO2 at Patient Temp 45 mmHg (75-108) Arterial Blood HCO3 34 mmol/L (21-28) Arterial Blood Base Excess 7 mmol/L (-3-3) FiO2 100 Glucose (Fingerstick) 139 mg/dL (70-99) Review of Systems Review of Systems: Gastrointestinal: No nausea or vomiting. Eyes: No loss of vision or blurry vision. Assessment and Plan Assessmemt and Plan Assessment: Acute hypoxic respiratory failure requiring BiPAP and subsequent intubation - due to COVID 19 with ARDS COVID-19 pneumonia Morbid obesity History of diabetes mellitus type 2 History of hypertension Severe malnutrition Septic shock Gram negative bacteremia - proteus Plan: 1) Continue ICU monitoring 2) Wean off vent 3) Continue IV sedation with dexmedetomidine, fentanyl, and versed. 4) Continue IV vecuronium 5) Appreciate subspecialty consult: - Pulmonology (07/10): Having low-grade fever antibiotics per ID currently on meropenem. Continue pressure control ventilation. CT abdomen pelvis pending. Long-term prognosis poor. Started on IV Lasix yesterday - ID (07/10): Cont Merrem. supportive care. CT abd and pelvis pending 6) SCD for DVT prophylaxis 7) DNR 8) Prognosis guarded CC time 33 minutes Comment Review of Relevant I have reviewed the following items man (where applicable) has been applied. Justifications for Admission Other Justification Acute hypoxic respiratory failure and Covid pneumonia HUI OLMSTEAD III DO Jul 10, 2021 14:16
[2021-07-11] VITALS (24 sets, daily range): BP systolic 92–129; BP diastolic 42–87
[2021-07-11] MEDS: MIDAZOLAM 100mg/100ml NS BAG 100 ML IV PRN ×3 (00:05→21:49)
[2021-07-11] MEDS: fentaNYL HIGH DOSE PCA 55 ML IV PRN (00:06)
[2021-07-11] MEDS: DEXMEDETOMIDINE 400 MCG in IV NORMAL SALINE 100ML 96 ML IV PRN ×9 (00:26→23:35)
[2021-07-11] MEDS: PROPOFOL 100 ML IV PRN ×9 (02:04→22:29)
[2021-07-11] MEDS: NORCURON - VECURONIUM 50 MG in IV NORMAL SALINE 50ML 50 ML IV PRN ×5 (03:20→21:51)
[2021-07-11] MEDS: INSULIN LISPRO 300 UNITS/3 ML VIAL. SQ SCH ×4 (06:00→17:02)
[2021-07-11] MEDS: MEROPENEM 1 GM in IV NORMAL SALINE 100ML 100 ML IV SCH ×3 (06:08→22:27)
[2021-07-11 06:41] LABS: BASO # 0.1 x10^3/uL (0.0-0.2); BASO % 1 % (0-3); EOS # 0.6 x10^3/uL (0.0-0.7); EOS % 4 % (0-3); HEMATOCRIT 26.2 % (36.0-47.0); HEMOGLOBIN 8.6 g/dL (12.0-15.5); LYMPH # 1.8 x10^3/uL (1.0-4.8); LYMPH % 13 % (24-48); MEAN CORPUSCULAR HEMOGLOBIN 26 pg (25-35); MEAN CORPUSCULAR HGB CONC 33 g/dL (31-37); MEAN CORPUSCULAR VOLUME 78 fL (79-100); MONO # 0.4 x10^3/uL (0.0-1.1); MONO % 3 % (0-9); NEUT # 11.8 x10^3/uL (1.8-7.7); NEUT % 80 % (31-73); PLATELET COUNT 442 x10^3/uL (140-400); RED BLOOD COUNT 3.36 x10^6/uL (3.50-5.40); RED CELL DISTRIBUTION WIDTH 20.2 % (11.5-14.5); WHITE BLOOD COUNT 14.7 x10^3/uL (4.0-11.0)
[2021-07-11 06:49] LABS: CALCIUM 7.9 mg/dL (8.5-10.1); CREATININE 0.3 mg/dL (0.6-1.0); GFR 246.4; POTASSIUM 3.5 mmol/L (3.5-5.1)
[2021-07-11] MEDS: LISINOPRIL 5 MG TABLET. PO SCH (07:17)
[2021-07-11] MEDS: GABAPENTIN 300 MG CAPSULE. PO SCH ×3 (07:28→20:54)
[2021-07-11] MEDS: ENOXAPARIN 40 MG/0.4 ML SYRINGE. SQ SCH ×2 (07:28→20:53)
[2021-07-11] MEDS: ZINC SULFATE 220 MG CAPSULE. PO SCH (07:28)
[2021-07-11] MEDS: PANTOPRAZOLE IV PUSH 40 MG VIAL. IVP SCH (07:28)
[2021-07-11] MEDS: ASCORBIC ACID 1,000 MG TABLET PO SCH ×3 (07:28→20:53)
[2021-07-11] MEDS: THIAMINE 100 MG TABLET. PO SCH (07:28)
[2021-07-11] MEDS: FUROSEMIDE 40 MG/4 ML VIAL. IVP SCH (07:29)
--- NOTE | 2021-07-11 07:59 | PDOC ---
Infectious Disease Note Subjective Subjective Intubated/ sedated ROS ROS No nausea vomiting Vital Sign Vital Signs Vital Signs Date Time Temp Pulse Resp B/P (MAP) Pulse Ox O2 Delivery O2 Flow Rate FiO2 07/11/21 07:00 74 20 114/55 (74) 79 Ventilator 07/11/21 04:00 98.8 98.8 07/11/21 00:36 40.0 Physical Exam PHYSICAL EXAM GENERAL: Sedated, orally intubated female, not in distress. VITAL SIGNS: Stable. HEENT: Both pupils are round and reacting. No conjunctival lesion. Mouth cannot be visualized, has orally intubated. NECK: Supple, no JVP, no lymphadenopathy. LUNGS: Clear. HEART: S1, S2 regular. ABDOMEN: Soft, nontender, no organomegaly. EXTREMITIES: No edema, cyanosis. SKIN: Unremarkable. NEUROLOGIC: The patient is sedated, intubated, neurologically unable to assess. Labs Lab Laboratory Tests Test 07/10/21 11:38 07/10/21 17:34 07/11/21 00:39 07/11/21 06:05 Glucose (Fingerstick) 139 mg/dL (70-99) 139 mg/dL (70-99) 132 mg/dL (70-99) White Blood Count 14.7 x10^3/uL (4.0-11.0) Red Blood Count 3.36 x10^6/uL (3.50-5.40) Hemoglobin 8.6 g/dL (12.0-15.5) Hematocrit 26.2 % (36.0-47.0) Mean Corpuscular Volume 78 fL (79-100) Mean Corpuscular Hemoglobin 26 pg (25-35) Mean Corpuscular Hemoglobin Concent 33 g/dL (31-37) Red Cell Distribution Width 20.2 % (11.5-14.5) Platelet Count 442 x10^3/uL (140-400) Neutrophils (%) (Auto) 80 % (31-73) Lymphocytes (%) (Auto) 13 % (24-48) Monocytes (%) (Auto) 3 % (0-9) Eosinophils (%) (Auto) 4 % (0-3) Basophils (%) (Auto) 1 % (0-3) Neutrophils # (Auto) 11.8 x10^3/uL (1.8-7.7) Lymphocytes # (Auto) 1.8 x10^3/uL (1.0-4.8) Monocytes # (Auto) 0.4 x10^3/uL (0.0-1.1) Eosinophils # (Auto) 0.6 x10^3/uL (0.0-0.7) Basophils # (Auto) 0.1 x10^3/uL (0.0-0.2) Sodium Level 144 mmol/L (136-145) Potassium Level 3.5 mmol/L (3.5-5.1) Chloride Level 104 mmol/L (98-107) Carbon Dioxide Level 39 mmol/L (21-32) Anion Gap 1 (6-14) Blood Urea Nitrogen 11 mg/dL (7-20) Creatinine 0.3 mg/dL (0.6-1.0) Estimated GFR (Cockcroft-Gault) 246.4 Glucose Level 151 mg/dL (70-99) Calcium Level 7.9 mg/dL (8.5-10.1) Test 07/11/21 06:17 Glucose (Fingerstick) 148 mg/dL (70-99) Micro Sputum culture Proteus Blood culture Proteus Urine has yeast Objective Assessment 1. Fever 2. COVID-19 infection. 3. Pulmonary infiltrate. 4. Respiratory failure. 5. Leukocytosis. 6. Morbid obesity. 7 G neg camilo bacteremia Proteus Plan Plan of Care Cont Merrem supportive care CT abd and pelvis pending Now DNR ROBERTO HADDAD MD Jul 11, 2021 07:59
--- NOTE | 2021-07-11 08:21 | PDOC ---
PULMONARY PROGRESS NOTES DATE: 07/11/21 TIME: 08:21 Subjective Patient continues to require high PEEP high FiO2 No overnight event Vitals Vital Signs Date Time Temp Pulse Resp B/P (MAP) Pulse Ox O2 Delivery O2 Flow Rate FiO2 07/11/21 07:00 74 20 114/55 (74) 79 Ventilator 07/11/21 04:00 98.8 98.8 07/11/21 00:36 40.0 Comments ros unable to obtain on vent sedated Lungs: Crackles Cardiovascular: S1 Abdomen: Soft Extremities: No Edema Skin: Warm Labs Laboratory Tests Test 07/09/21 09:30 07/09/21 12:16 07/09/21 17:38 07/09/21 23:39 O2 Saturation 78 % (92-99) Arterial Blood pH 7.37 (7.35-7.45) Arterial Blood pCO2 at Patient Temp 62 mmHg (35-46) Arterial Blood pO2 at Patient Temp 46 mmHg (75-108) Arterial Blood HCO3 35 mmol/L (21-28) Arterial Blood Base Excess 8 mmol/L (-3-3) FiO2 100% vent Glucose (Fingerstick) 132 mg/dL (70-99) 147 mg/dL (70-99) 142 mg/dL (70-99) Test 07/10/21 05:11 07/10/21 05:45 07/10/21 07:40 07/10/21 11:38 Glucose (Fingerstick) 135 mg/dL (70-99) 139 mg/dL (70-99) White Blood Count 13.3 x10^3/uL (4.0-11.0) Red Blood Count 3.43 x10^6/uL (3.50-5.40) Hemoglobin 8.8 g/dL (12.0-15.5) Hematocrit 26.8 % (36.0-47.0) Mean Corpuscular Volume 78 fL (79-100) Mean Corpuscular Hemoglobin 26 pg (25-35) Mean Corpuscular Hemoglobin Concent 33 g/dL (31-37) Red Cell Distribution Width 20.4 % (11.5-14.5) Platelet Count 401 x10^3/uL (140-400) Neutrophils (%) (Auto) 78 % (31-73) Lymphocytes (%) (Auto) 13 % (24-48) Monocytes (%) (Auto) 3 % (0-9) Eosinophils (%) (Auto) 5 % (0-3) Basophils (%) (Auto) 1 % (0-3) Neutrophils # (Auto) 10.4 x10^3/uL (1.8-7.7) Lymphocytes # (Auto) 1.7 x10^3/uL (1.0-4.8) Monocytes # (Auto) 0.4 x10^3/uL (0.0-1.1) Eosinophils # (Auto) 0.6 x10^3/uL (0.0-0.7) Basophils # (Auto) 0.1 x10^3/uL (0.0-0.2) Sodium Level 140 mmol/L (136-145) Potassium Level 3.6 mmol/L (3.5-5.1) Chloride Level 101 mmol/L (98-107) Carbon Dioxide Level 38 mmol/L (21-32) Anion Gap 1 (6-14) Blood Urea Nitrogen 12 mg/dL (7-20) Creatinine 0.4 mg/dL (0.6-1.0) Estimated GFR (Cockcroft-Gault) 176.8 Glucose Level 138 mg/dL (70-99) Calcium Level 8.2 mg/dL (8.5-10.1) O2 Saturation 75 % (92-99) Arterial Blood pH 7.35 (7.35-7.45) Arterial Blood pCO2 at Patient Temp 63 mmHg (35-46) Arterial Blood pO2 at Patient Temp 45 mmHg (75-108) Arterial Blood HCO3 34 mmol/L (21-28) Arterial Blood Base Excess 7 mmol/L (-3-3) FiO2 100 Test 07/10/21 17:34 07/11/21 00:39 07/11/21 06:05 07/11/21 06:17 Glucose (Fingerstick) 139 mg/dL (70-99) 132 mg/dL (70-99) 148 mg/dL (70-99) White Blood Count 14.7 x10^3/uL (4.0-11.0) Red Blood Count 3.36 x10^6/uL (3.50-5.40) Hemoglobin 8.6 g/dL (12.0-15.5) Hematocrit 26.2 % (36.0-47.0) Mean Corpuscular Volume 78 fL (79-100) Mean Corpuscular Hemoglobin 26 pg (25-35) Mean Corpuscular Hemoglobin Concent 33 g/dL (31-37) Red Cell Distribution Width 20.2 % (11.5-14.5) Platelet Count 442 x10^3/uL (140-400) Neutrophils (%) (Auto) 80 % (31-73) Lymphocytes (%) (Auto) 13 % (24-48) Monocytes (%) (Auto) 3 % (0-9) Eosinophils (%) (Auto) 4 % (0-3) Basophils (%) (Auto) 1 % (0-3) Neutrophils # (Auto) 11.8 x10^3/uL (1.8-7.7) Lymphocytes # (Auto) 1.8 x10^3/uL (1.0-4.8) Monocytes # (Auto) 0.4 x10^3/uL (0.0-1.1) Eosinophils # (Auto) 0.6 x10^3/uL (0.0-0.7) Basophils # (Auto) 0.1 x10^3/uL (0.0-0.2) Sodium Level 144 mmol/L (136-145) Potassium Level 3.5 mmol/L (3.5-5.1) Chloride Level 104 mmol/L (98-107) Carbon Dioxide Level 39 mmol/L (21-32) Anion Gap 1 (6-14) Blood Urea Nitrogen 11 mg/dL (7-20) Creatinine 0.3 mg/dL (0.6-1.0) Estimated GFR (Cockcroft-Gault) 246.4 Glucose Level 151 mg/dL (70-99) Calcium Level 7.9 mg/dL (8.5-10.1) Laboratory Tests Test 07/10/21 11:38 07/10/21 17:34 07/11/21 00:39 07/11/21 06:05 Glucose (Fingerstick) 139 mg/dL (70-99) 139 mg/dL (70-99) 132 mg/dL (70-99) White Blood Count 14.7 x10^3/uL (4.0-11.0) Red Blood Count 3.36 x10^6/uL (3.50-5.40) Hemoglobin 8.6 g/dL (12.0-15.5) Hematocrit 26.2 % (36.0-47.0) Mean Corpuscular Volume 78 fL (79-100) Mean Corpuscular Hemoglobin 26 pg (25-35) Mean Corpuscular Hemoglobin Concent 33 g/dL (31-37) Red Cell Distribution Width 20.2 % (11.5-14.5) Platelet Count 442 x10^3/uL (140-400) Neutrophils (%) (Auto) 80 % (31-73) Lymphocytes (%) (Auto) 13 % (24-48) Monocytes (%) (Auto) 3 % (0-9) Eosinophils (%) (Auto) 4 % (0-3) Basophils (%) (Auto) 1 % (0-3) Neutrophils # (Auto) 11.8 x10^3/uL (1.8-7.7) Lymphocytes # (Auto) 1.8 x10^3/uL (1.0-4.8) Monocytes # (Auto) 0.4 x10^3/uL (0.0-1.1) Eosinophils # (Auto) 0.6 x10^3/uL (0.0-0.7) Basophils # (Auto) 0.1 x10^3/uL (0.0-0.2) Sodium Level 144 mmol/L (136-145) Potassium Level 3.5 mmol/L (3.5-5.1) Chloride Level 104 mmol/L (98-107) Carbon Dioxide Level 39 mmol/L (21-32) Anion Gap 1 (6-14) Blood Urea Nitrogen 11 mg/dL (7-20) Creatinine 0.3 mg/dL (0.6-1.0) Estimated GFR (Cockcroft-Gault) 246.4 Glucose Level 151 mg/dL (70-99) Calcium Level 7.9 mg/dL (8.5-10.1) Test 07/11/21 06:17 Glucose (Fingerstick) 148 mg/dL (70-99) Medications Active Scripts Medications Dose Route/Sig Max Daily Dose Days Date Category Cyclobenzaprine Hcl 10 Mg Tablet 10 Mg PO TID 06/15/21 Reported Meloxicam 15 Mg Tablet 15 Mg PO DAILY 06/15/21 Reported Fluticasone Propionate Nasal [place] (Fluticasone Propionate) 16 Gm [place].susp 1 [place] NS DAILY 06/15/21 Reported Loratadine 10 Mg Tablet 10 Mg PO DAILY 06/15/21 Reported Furosemide 20 Mg Tablet 20 Mg PO DAILY 06/15/21 Reported Gabapentin (Gabapentin) 300 Mg Capsule 300 Mg PO TID 06/15/21 Reported Gabapentin (Gabapentin) 300 Mg Capsule 300 Mg PO TID 06/15/21 Reported Lisinopril 5 Mg Tablet 1 Tab PO DAILY 06/15/21 Reported Metformin Hcl 500 Mg Tablet 500 Mg PO BIDWMEALS 06/15/21 Reported Ozempic (Semaglutide) 0.25 Mg/0.2 Ml Pen.injctr 0.25 Mg SQ WEEKLY 06/15/21 Reported Impression . 1. Acute hypoxic respiratory failure secondary to ARDS/COVID-19 infection, worsening intubated 06/19/21. 2. Abnormal CT of chest secondary to COVID-19 infection/ARDS 3. Diabetes type 2 with hyperglycemia 4. Hypotension, secondary to sepsis 5. Hyperlipdemia 6. Obesity 7. sepsis with Proteus mirabilis bacteremia and pneumonia 8. Proteus mirabilis in the sputum. 9 gram-negative camilo bacteremia Proteus Chest x-ray reviewed, diffuse bilateral opacities unchanged Plan . Updated 07/11 Spoke with family at the bedside, the daughter. Updated her Antibiotics per ID currently on meropenem Pressure control ventilation Daily Lasix DVT GI prophylaxis Status post remdesivir updated 07/10 Having low-grade fever antibiotics per ID currently on meropenem Continue pressure control ventilation CT abdomen pelvis pending Long-term prognosis poor Started on IV Lasix yesterday DVT GI prophylaxis Status post remdesivir Total cumulative critical care time of 30 minutes with no overlap Updated 07/09 Clinically patient not improving Continue empiric antibiotics Continue supportive care Discussed with RN, Petar x3 days Follow chest x-ray Increased rate CALVIN CAZARES MD Jul 11, 2021 08:21
[2021-07-11] MEDS: INSULIN GLARGINE SYRINGE. SQ SCH ×2 (09:43→20:54)
--- NOTE | 2021-07-11 10:01 | NUR ---
SS following up with discharge planning. SS reviewed pt chart and discussed with pt RN. Pt is currently on the vent at 100%. Peep of 12. COVID19 recovered. New DNR. Pt on IV Meropenem and IV Lasix. Pt on Propofol, Versed, Fentanyl, Precedex, and Vec. Not stable. SS will continue to follow for discharge planning.
--- NOTE | 2021-07-11 14:03 | PDOC ---
[employer] PROGRESS NOTE Date of Service DOS: DATE: 07/11/21 TIME: 14:00 Chief Complaint Chief Complaint Acute hypoxic respiratory failure requiring BiPAP and subsequent intubation - due to COVID 19 with ARDS COVID-19 pneumonia Morbid obesity History of diabetes mellitus type 2 History of hypertension Severe malnutrition Septic shock Gram negative bacteremia - proteus History of Present Illness History of Present Illness Ms Pierce is a transfer from [facility] in [facility], 40-year-old female with past medical history of diabetes, hypertension, dyslipidemia and morbid obesity who complains of shortness of breath 1 week ago and went to urgent care and found out that she was positive for Covid. She came in at 5:00 in the morning at [facility] is very hypoxic and was found to be her oxygen saturation was 68% she was put on a nonrebreather 15 L and she was improved to 90 to 93%. Patient is [id number]. Patient is a poor historian. She does not know what kind of medication she takes for her medical history. 06/15: In the ICU. She was face time talking with family members. She was still on nonrebreather. Pulmonary consulted. 06/16: On Vapotherm. No major complaints. 06/17: Remains on Vapotherm although O2 requirement decreasing. Continue current plan. 06/18: On 40 L Vapotherm and now requiring NRB in addition. Afebrile and on broad-spectrum antibiotics. Remdesivir finishes today. 06/19: Intubated overnight in ICU. Afebrile. Currently breathing FiO2 100%. Completed remdesivir. We will continue IV steroids and antibiotics. 06/20: Low-grade fever overnight (T-max 99.7 F). Remains on vent, FiO2 90%, PEEP 10. Continue treatment with IV steroids and antibiotics. 06/21: Afebrile. On vent with FiO2 80%, PEEP 10. Cont treatment with antibiotics steroids total of 10 day course (steroid taper to begin 06/24). 06/22: Afebrile. Remains on ventilator with FiO2 70%, PEEP 10. Completed remdesivir. Continue antibiotics, steroids with slow taper. 06/23: Afebrile. On vent with FiO2 of 70, PEEP 10. Continue antibiotics for diffuse bilateral opacities. Continue steroids with slow taper 06/24: Afebrile. On vent with FiO2 60%, PEEP 9. Continue antibiotics. Today is day 10 of steroids; will begin Solu-Medrol taper tomorrow. 06/25: On vent with FiO2 65, PEEP 9. Afebrile. Completed 10 days of steroids; will begin Solu-Medrol taper today at 60 mg twice daily. 06/26: Intubated and sedated vent at 20/450/70/9. Insulin dose to 10 units twice daily. Solu-Medrol decreased to 40 mg daily. Cont with IV Lasix 06/27: Intubated and sedated. Vent settings at assist control at saturating 97%. Vent settings set at 16/80/9. ABG at 7.4 8/58/32. 06/28: No acute events overnight. Patient continues to be intubated and sedated. Saturating 90% on assist control with vent settings of 16/80/9. 06/29: No acute events overnight patient saturating 98% on vent settings of 10/80/9. 06/30: Patient did have hypotensive episode during the day which required a 500 NS bolus. Possibly needing vasopressors. pressure support/80/9. 07/01: No acute events overnight. Patient saturating 99% on vent settings of 14 pressure support/80/9. Urine output of 3.6 L in the last 24 hours. 07/02: Paralyzed for vent dysynchrony. Saturating 100% on 14/70/9. Fever of 101.1 this morning. 07/03: Febrile 101.1 F. 70% FiO2 and 9 PEEP. Still requiring vecuronium for vent dyssynchrony. ID consulted for sepsis, ?VAP 07/04: T-max 102.6 F last 24 hours, afebrile overnight. Peripheral culture and culture from PICC and sputum and urine culture obtained. Now on meropenem and Zyvox. More hypoxic, ABG 7.4 1/57/48, requiring FiO2 90% PEEP of 9 07/05: Afebrile. ABG 7.3/66/60, FiO2 100% PEEP of 12. Sputum and blood cx proteus mirabilis. Urine with some yeast. Daughter bedside this morning noted she is thinking of withdrawing care. D/w patient's sister and nephew bedside patient has been aggressively cared for cont current care. 07/06: Afebrile overnight. Sedated on ventilator FiO2 100% PEEP 12, O2 saturation 90% on pulse oximetry, still requiring vecuronium for vent dyssynchrony. Labs pending. 07/07: Afebrile. Hb 9.4, ABG 2.97/65.8/54.7. Peak pressures over 50s pressure control currently paralyzed. Lasix on hold received albumin. Still requiring Levophed. CT abdomen pelvis pending. 07/08: Febrile to 100.6 F overnight. Vecuronium wean attempted and significantly dyssynchrony. Still requiring Levophed support. FiO2 100% 12 peak pressures in the 50s. Afebrile overnight. More hypoxic overnight, I:E ratio 2-1, paralyzed on vecuronium for dyssynchrony. FiO2 100% PEEP 12. WBC 10, Hb 8.1, platelets 314. Met with daughter, Lala, bedside and sister over the phone the continued decline and grim prognosis and they have requested DNR. 07/10/2021: Patient seen and examined in ICU. On pressure control of 40 with a rat e of 20, 100% FiO2, and a PEEP of 12. SCD for DVT prophylaxis. Mccall to BSD. Rectal bag present. OG set at 40cc per hour. Sedated with fentanyl, propofol, and versed. On vecuronium drip. Triple lumen PICC line present on right arm. O2 saturation is still only 79%. Chest x-ray today showed stable life support devices and stable diffuse bilateral opacities. Discussed with RN. Chart r shayy. 07/11/2021 Patient seen and examined in the ICU He is still mechanically ventilated On pressure control with 100% FiO2 Mccall to BSD Rectal bag still present Sedated with propofol fentanyl and Versed Also has as needed vecuronium Her daughter is present I reviewed the case with her daughter extensively Chart reviewed Discussed with RN Patient is still critically ill Vitals/I&O Vitals/I&O: Vital Signs Date Time Temp Pulse Resp B/P (MAP) Pulse Ox O2 Delivery O2 Flow Rate FiO2 07/11/21 13:00 72 20 94/42 (59) 80 Ventilator 07/11/21 12:00 99.0 99.0 07/11/21 00:36 40.0 I & O 9/607/10/21 07/11/21 15:00 23:00 07:00 Intake Total 340 ml 2266 ml 2257.4 ml Output Total 1500 ml 1175 ml 500 ml Balance -1160 ml 1091 ml 1757.4 ml Physical Exam Physical Exam: GENERAL: Sedated, orally intubated female, not in distress. VITAL SIGNS: Stable. HEENT: Both pupils are round and reacting. No conjunctival lesion. Mouth cannot be visualized, has orally intubated. NECK: Supple, no JVP, no lymphadenopathy. LUNGS: Clear. HEART: S1, S2 regular. ABDOMEN: Soft, nontender, no organomegaly. EXTREMITIES: No edema, cyanosis. SKIN: Unremarkable. NEUROLOGIC: The patient is sedated, intubated, neurologically unable to assess. General: No acute distress, Other (Intubated and sedated) Heart: Regular rate, Normal S1, Normal S2 Lungs: Crackles Abdomen: Normal bowel sounds, Soft Extremities: No clubbing, No edema, Normal pulses Skin: No rashes, No significant lesion Labs Labs: Laboratory Tests Test 07/10/21 17:34 07/11/21 00:39 07/11/21 06:05 07/11/21 06:17 Glucose (Fingerstick) 139 mg/dL (70-99) 132 mg/dL (70-99) 148 mg/dL (70-99) White Blood Count 14.7 x10^3/uL (4.0-11.0) Red Blood Count 3.36 x10^6/uL (3.50-5.40) Hemoglobin 8.6 g/dL (12.0-15.5) Hematocrit 26.2 % (36.0-47.0) Mean Corpuscular Volume 78 fL (79-100) Mean Corpuscular Hemoglobin 26 pg (25-35) Mean Corpuscular Hemoglobin Concent 33 g/dL (31-37) Red Cell Distribution Width 20.2 % (11.5-14.5) Platelet Count 442 x10^3/uL (140-400) Neutrophils (%) (Auto) 80 % (31-73) Lymphocytes (%) (Auto) 13 % (24-48) Monocytes (%) (Auto) 3 % (0-9) Eosinophils (%) (Auto) 4 % (0-3) Basophils (%) (Auto) 1 % (0-3) Neutrophils # (Auto) 11.8 x10^3/uL (1.8-7.7) Lymphocytes # (Auto) 1.8 x10^3/uL (1.0-4.8) Monocytes # (Auto) 0.4 x10^3/uL (0.0-1.1) Eosinophils # (Auto) 0.6 x10^3/uL (0.0-0.7) Basophils # (Auto) 0.1 x10^3/uL (0.0-0.2) Sodium Level 144 mmol/L (136-145) Potassium Level 3.5 mmol/L (3.5-5.1) Chloride Level 104 mmol/L (98-107) Carbon Dioxide Level 39 mmol/L (21-32) Anion Gap 1 (6-14) Blood Urea Nitrogen 11 mg/dL (7-20) Creatinine 0.3 mg/dL (0.6-1.0) Estimated GFR (Cockcroft-Gault) 246.4 Glucose Level 151 mg/dL (70-99) Calcium Level 7.9 mg/dL (8.5-10.1) Test 07/11/21 11:51 Glucose (Fingerstick) 142 mg/dL (70-99) Assessment and Plan Assessmemt and Plan Acute hypoxic respiratory failure requiring BiPAP and subsequent intubation - due to COVID 19 with ARDS COVID-19 pneumonia Morbid obesity History of diabetes mellitus type 2 History of hypertension Severe malnutrition Septic shock Gram negative bacteremia - proteus Plan: 1) Continue ICU monitoring 2) vent weaning 3) Continue IV sedation with dexmedetomidine, fentanyl, and versed. 4) Continue IV vecuronium 5) Appreciate subspecialty consult: - Pulmonology (07/10): Having low-grade fever antibiotics per ID currently on meropenem. Continue pressure control ventilation. CT abdomen pelvis pending. Long-term prognosis poor. Started on IV Lasix yesterday - ID (07/10): Cont Merrem. supportive care. CT abd and pelvis pending 6) SCD for DVT prophylaxis 7) DNR 8) Prognosis guarded at best (I am concerned she may not survive and her daughter understands) CC time 34 minutes Comment Review of Relevant I have reviewed the following items man (where applicable) has been applied. Justifications for Admission Other Justification Acute hypoxic respiratory failure and Covid pneumonia HUI OLMSTEAD III DO Jul 11, 2021 14:02
[2021-07-12] VITALS (25 sets, daily range): BP systolic 96–118; BP diastolic 41–56
[2021-07-12] MEDS: PROPOFOL 100 ML IV PRN ×10 (00:51→23:21)
[2021-07-12] MEDS: DEXMEDETOMIDINE 400 MCG in IV NORMAL SALINE 100ML 96 ML IV PRN ×8 (02:39→23:59)
[2021-07-12] MEDS: NORCURON - VECURONIUM 50 MG in IV NORMAL SALINE 50ML 50 ML IV PRN ×5 (02:39→21:44)
[2021-07-12] MEDS: fentaNYL HIGH DOSE PCA 55 ML IV PRN (05:56)
[2021-07-12] MEDS: MEROPENEM 1 GM in IV NORMAL SALINE 100ML 100 ML IV SCH ×3 (05:57→23:11)
[2021-07-12 06:43] LABS: BASO # 0.1 x10^3/uL (0.0-0.2); BASO % 0 % (0-3); EOS # 0.7 x10^3/uL (0.0-0.7); EOS % 2 % (0-3); HEMATOCRIT 28.2 % (36.0-47.0); HEMOGLOBIN 9.2 g/dL (12.0-15.5); LYMPH # 2.1 x10^3/uL (1.0-4.8); LYMPH % 7 % (24-48); MEAN CORPUSCULAR HEMOGLOBIN 26 pg (25-35); MEAN CORPUSCULAR HGB CONC 33 g/dL (31-37); MEAN CORPUSCULAR VOLUME 78 fL (79-100); MONO # 0.9 x10^3/uL (0.0-1.1); MONO % 3 % (0-9); NEUT # 24.4 x10^3/uL (1.8-7.7); NEUT % 87 % (31-73); PLATELET COUNT 528 x10^3/uL (140-400); RED BLOOD COUNT 3.61 x10^6/uL (3.50-5.40); RED CELL DISTRIBUTION WIDTH 20.7 % (11.5-14.5); WHITE BLOOD COUNT 28.2 x10^3/uL (4.0-11.0)
[2021-07-12 06:54] LABS: CREATININE 0.4 mg/dL (0.6-1.0); GFR 176.8; POTASSIUM 3.6 mmol/L (3.5-5.1)
[2021-07-12] MEDS: INSULIN LISPRO 300 UNITS/3 ML VIAL. SQ SCH ×4 (07:16→17:09)
[2021-07-12] MEDS: PANTOPRAZOLE IV PUSH 40 MG VIAL. IVP SCH (07:16)
[2021-07-12] MEDS: FUROSEMIDE 40 MG/4 ML VIAL. IVP SCH (07:16)
[2021-07-12] MEDS: ASCORBIC ACID 1,000 MG TABLET PO SCH (07:16)
[2021-07-12] MEDS: GABAPENTIN 300 MG CAPSULE. PO SCH ×3 (07:17→23:21)
[2021-07-12] MEDS: THIAMINE 100 MG TABLET. PO SCH (07:17)
[2021-07-12] MEDS: ENOXAPARIN 40 MG/0.4 ML SYRINGE. SQ SCH ×2 (07:17→23:21)
[2021-07-12] MEDS: ZINC SULFATE 220 MG CAPSULE. PO SCH (07:17)
[2021-07-12] MEDS: LISINOPRIL 5 MG TABLET. PO SCH (07:17)
[2021-07-12 07:34] LABS: % BANDS 16 % (0-9); % EOS 3 % (0-5); % LYMPHS 9 % (24-48); % SEGS 72 % (35-66); NUCLEATED RBC 1
[2021-07-12 07:35] LABS: PLT ESTIMATE INCREASED (ADEQUATE); POLYCHROMASIA PRESENT; SMUDGE CELLS PRESENT
[2021-07-12] MEDS: ACETAMINOPHEN 325 MG TABLET. PO PRN ×2 (07:35→11:41)
--- NOTE | 2021-07-12 07:42 | PDOC ---
Infectious Disease Note Subjective Subjective Intubated/ sedated ROS ROS No nausea vomiting Vital Sign Vital Signs Vital Signs Date Time Temp Pulse Resp B/P (MAP) Pulse Ox O2 Delivery O2 Flow Rate FiO2 07/12/21 07:30 80 Ventilator 07/12/21 06:00 100 20 110/56 (74) 07/12/21 04:00 99.0 99.0 Physical Exam PHYSICAL EXAM GENERAL: Sedated, orally intubated female, not in distress. VITAL SIGNS: Stable. HEENT: Both pupils are round and reacting. No conjunctival lesion. Mouth cannot be visualized, has orally intubated. NECK: Supple, no JVP, no lymphadenopathy. LUNGS: Clear. HEART: S1, S2 regular. ABDOMEN: Soft, nontender, no organomegaly. EXTREMITIES: No edema, cyanosis. SKIN: Unremarkable. NEUROLOGIC: The patient is sedated, intubated, neurologically unable to assess. Labs Lab Laboratory Tests Test 07/11/21 11:51 07/11/21 17:02 07/12/21 00:34 07/12/21 06:20 Glucose (Fingerstick) 142 mg/dL (70-99) 153 mg/dL (70-99) 176 mg/dL (70-99) White Blood Count 28.2 x10^3/uL (4.0-11.0) Red Blood Count 3.61 x10^6/uL (3.50-5.40) Hemoglobin 9.2 g/dL (12.0-15.5) Hematocrit 28.2 % (36.0-47.0) Mean Corpuscular Volume 78 fL (79-100) Mean Corpuscular Hemoglobin 26 pg (25-35) Mean Corpuscular Hemoglobin Concent 33 g/dL (31-37) Red Cell Distribution Width 20.7 % (11.5-14.5) Platelet Count 528 x10^3/uL (140-400) Neutrophils (%) (Auto) 87 % (31-73) Lymphocytes (%) (Auto) 7 % (24-48) Monocytes (%) (Auto) 3 % (0-9) Eosinophils (%) (Auto) 2 % (0-3) Basophils (%) (Auto) 0 % (0-3) Neutrophils # (Auto) 24.4 x10^3/uL (1.8-7.7) Lymphocytes # (Auto) 2.1 x10^3/uL (1.0-4.8) Monocytes # (Auto) 0.9 x10^3/uL (0.0-1.1) Eosinophils # (Auto) 0.7 x10^3/uL (0.0-0.7) Basophils # (Auto) 0.1 x10^3/uL (0.0-0.2) Segmented Neutrophils % 72 % (35-66) Band Neutrophils % 16 % (0-9) Lymphocytes % 9 % (24-48) Eosinophils % 3 % (0-5) Nucleated Red Blood Cells 1 Smudge Cells Present Platelet Estimate Increased (ADEQUATE) Polychromasia Present Macrocytosis Present Sodium Level 143 mmol/L (136-145) Potassium Level 3.6 mmol/L (3.5-5.1) Chloride Level 102 mmol/L (98-107) Carbon Dioxide Level 40 mmol/L (21-32) Anion Gap 1 (6-14) Blood Urea Nitrogen 6 mg/dL (7-20) Creatinine 0.4 mg/dL (0.6-1.0) Estimated GFR (Cockcroft-Gault) 176.8 Glucose Level 175 mg/dL (70-99) Calcium Level 8.0 mg/dL (8.5-10.1) Test 07/12/21 06:37 Glucose (Fingerstick) 153 mg/dL (70-99) Micro Sputum culture Proteus Blood culture Proteus Urine has yeast Objective Assessment 1. Fever 2. COVID-19 infection. 3. Pulmonary infiltrate. 4. Respiratory failure. 5. Leukocytosis. 6. Morbid obesity. 7 G neg camilo bacteremia Proteus Plan Plan of Care Cont Merrem add Zyvox and micafungin supportive care CT abd and pelvis pending Now DNR ROBERTO HADDAD MD Jul 12, 2021 07:42
--- NOTE | 2021-07-12 08:03 | RAD ---
EXAMINATION: Chest radiograph. VIEWS: Single view COMPARISON: 07/10/2021 INDICATION:40 years, Female, respiratory failure/ARDS. FINDINGS: Stable cardiomediastinal silhouette. Similar diffuse bilateral airspace opacities. No pleural effusio n or pneumothorax. No acute osseous process. Endotracheal tube tip locates approximately 4.2 cm proxi mal to the narcisa. Enteric tube tip is off image, presumably in the stomach. Right PICC line remains unchanged in position. IMPRESSION: No significant changes since earlier exam. Electronically signed by: Ronan Castillo MD (07/12/2021 8:00 AM) [id number]
--- NOTE | 2021-07-12 08:58 | PDOC ---
[employer] PROGRESS NOTE Date of Service DOS: DATE: 07/12/21 TIME: 08:56 Chief Complaint Chief Complaint Acute hypoxic respiratory failure requiring BiPAP and subsequent intubation - due to COVID 19 with ARDS COVID-19 pneumonia Morbid obesity History of diabetes mellitus type 2 History of hypertension Severe malnutrition Septic shock Gram negative bacteremia - proteus History of Present Illness History of Present Illness 07/12/2021 Patient seen and examined in the ICU Chart reviewed Discussed with RN Patient's white count has bumped up to 28,000 Currently on pressure support with 40 cm/h2o 100% FiO2 12 of PEEP and satting 81% She remains critically ill Ms Pierce is a transfer from [facility] in [facility], 40-year-old female with past medical history of diabetes, hypertension, dyslipidemia and morbid obesity who complains of shortness of breath 1 week ago and went to urgent care and found out that she was positive for Covid. She came in at 5:00 in the morning at [facility] is very hypoxic and was found to be her oxygen saturation was 68% she was put on a nonrebreather 15 L and she was improved to 90 to 93%. Patient is [id number]. Patient is a poor historian. She does not know what kind of medication she takes for her medical history. 06/15: In the ICU. She was face time talking with family members. She was still on nonrebreather. Pulmonary consulted. 06/16: On Vapotherm. No major complaints. 06/17: Remains on Vapotherm although O2 requirement decreasing. Continue current plan. 06/18: On 40 L Vapotherm and now requiring NRB in addition. Afebrile and on broad-spectrum antibiotics. Remdesivir finishes today. 06/19: Intubated overnight in ICU. Afebrile. Currently breathing FiO2 100%. Completed remdesivir. We will continue IV steroids and antibiotics. 06/20: Low-grade fever overnight (T-max 99.7 F). Remains on vent, FiO2 90%, PEEP 10. Continue treatment with IV steroids and antibiotics. 06/21: Afebrile. On vent with FiO2 80%, PEEP 10. Cont treatment with antibiotics steroids total of 10 day course (steroid taper to begin 06/24). 06/22: Afebrile. Remains on ventilator with FiO2 70%, PEEP 10. Completed remdesivir. Continue antibiotics, steroids with slow taper. 06/23: Afebrile. On vent with FiO2 of 70, PEEP 10. Continue antibiotics for diffu se bilateral opacities. Continue steroids with slow taper 06/24: Afebrile. On vent with FiO2 60%, PEEP 9. Continue antibiotics. Today is day 10 of steroids; will begin Solu-Medrol taper tomorrow. 06/25: On vent with FiO2 65, PEEP 9. Afebrile. Completed 10 days of steroids; will begin Solu-Medrol taper today at 60 mg twice daily. 06/26: Intubated and sedated vent at 20/450/70/9. Insulin dose to 10 units twice daily. Solu-Medrol decreased to 40 mg daily. Cont with IV Lasix 06/27: Intubated and sedated. Vent settings at assist control at saturating 97%. Vent settings set at 16/80/9. ABG at 7.4 43/58/32. 06/28: No acute events overnight. Patient continues to be intubated and sedated. Saturating 90% on assist control with vent settings of 16/80/9. 06/29: No acute events overnight patient saturating 98% on vent settings of 10/80/9. 06/30: Patient did have hypotensive episode during the day which required a 500 NS bolus. Possibly needing vasopressors. pressure support/80/9. 07/01: No acute events overnight. Patient saturating 99% on vent settings of 14 pressure support/80/9. Urine output of 3.6 L in the last 24 hours. 07/02: Paralyzed for vent dysynchrony. Saturating 100% on 14/70/9. Fever of 101.1 this morning. 07/03: Febrile 101.1 F. 70% FiO2 and 9 PEEP. Still requiring vecuronium for vent dyssynchrony. ID consulted for sepsis, ?VAP 07/04: T-max 102.6 F last 24 hours, afebrile overnight. Peripheral culture and culture from PICC and sputum and urine culture obtained. Now on meropenem and Zyvox. More hypoxic, ABG 7.4 1/57/48, requiring FiO2 90% PEEP of 9 07/05: Afebrile. ABG 7.3/66/60, FiO2 100% PEEP of 12. Sputum and blood cx proteus mirabilis. Urine with some yeast. Daughter bedside this morning noted she is thinking of withdrawing care. D/w patient's sister and nephew bedside patient has been aggressively cared for cont current care. 07/06: Afebrile overnight. Sedated on ventilator FiO2 100% PEEP 12, O2 saturation 90% on pulse oximetry, still requiring vecuronium for vent dyssynchrony. Labs pending. 07/07: Afebrile. Hb 9.4, ABG 2.97/65.8/54.7. Peak pressures over 50s pressure control currently paralyzed. Lasix on hold received albumin. Still requiring Levophed. CT abdomen pelvis pending. 07/08: Febrile to 100.6 F overnight. Vecuronium wean attempted and significantly dyssynchrony. Still requiring Levophed support. FiO2 100% 12 peak pressures in the 50s. Afebrile overnight. More hypoxic overnight, I:E ratio 2-1, paralyzed on vecuronium for dyssynchrony. FiO2 100% PEEP 12. WBC 10, Hb 8.1, platelets 314. Met with daughter, Lala, bedside and sister over the phone the continued decline and grim prognosis and they have requested DNR. 07/10/2021: Patient seen and examined in ICU. On pressure control of 40 with a rate of 20, 100% FiO2, and a PEEP of 12. SCD for DVT prophylaxis. Mccall to BSD. Rectal bag present. OG set at 40cc per hour. Sedated with fentanyl, propofol, and versed. On vecuronium drip. Triple lumen PICC line present on right arm. O2 saturation is still only 79%. Chest x-ray today showed stable life support devices and stable diffuse bilateral opacities. Discussed with RN. Chart reviewed. 07/11/2021 Patient seen and examined in the ICU He is still mechanically ventilated On pressure control with 100% FiO2 Mccall to BSD Rectal bag still present Sedated with propofol fentanyl and Versed Also has as needed vecuronium Her daughter is present I reviewed the case with her daughter extensively Chart reviewed Discussed with RN Patient is still critically ill Vitals/I&O Vitals/I&O: Vital Signs Date Time Temp Pulse Resp B/P (MAP) Pulse Ox O2 Delivery O2 Flow Rate FiO2 07/12/21 08:00 Mechanical Ventilator 07/12/21 08:00 101.4 102 20 116/50 (72) 83 101.4 I & O 07/11/21 07/11/21 07/12/21 15:00 23:00 07:00 Intake Total 340 ml 2178 ml 2437 ml Output Total 1400 ml 875 ml 525 ml Balance -1060 ml 1303 ml 1912 ml Physical Exam Physical Exam: GENERAL: Sedated, orally intubated female, not in distress. VITAL SIGNS: Stable. HEENT: Both pupils are round and reacting. No conjunctival lesion. Mouth cannot be visualized, has orally intubated. NECK: Supple, no JVP, no lymphadenopathy. LUNGS: Clear. HEART: S1, S2 regular. ABDOMEN: Soft, nontender, no organomegaly. EXTREMITIES: No edema, cyanosis. SKIN: Unremarkable. NEUROLOGIC: The patient is sedated, intubated, neurologically unable to assess. General: No acute distress, Other (Intubated and sedated) Heart: Regular rate, Normal S1, Normal S2 Lungs: Crackles Abdomen: Normal bowel sounds, Soft Extremities: No clubbing, No edema, Normal pulses Skin: No rashes, No significant lesion Labs Labs: Laboratory Tests Test 07/11/21 11:51 07/11/21 17:02 07/12/21 00:34 07/12/21 06:20 Glucose (Fingerstick) 142 mg/dL (70-99) 153 mg/dL (70-99) 176 mg/dL (70-99) White Blood Count 28.2 x10^3/uL (4.0-11.0) Red Blood Count 3.61 x10^6/uL (3.50-5.40) Hemoglobin 9.2 g/dL (12.0-15.5) Hematocrit 28.2 % (36.0-47.0) Mean Corpuscular Volume 78 fL (79-100) Mean Corpuscular Hemoglobin 26 pg (25-35) Mean Corpuscular Hemoglobin Concent 33 g/dL (31-37) Red Cell Distribution Width 20.7 % (11.5-14.5) Platelet Count 528 x10^3/uL (140-400) Neutrophils (%) (Auto) 87 % (31-73) Lymphocytes (%) (Auto) 7 % (24-48) Monocytes (%) (Auto) 3 % (0-9) Eosinophils (%) (Auto) 2 % (0-3) Basophils (%) (Auto) 0 % (0-3) Neutrophils # (Auto) 24.4 x10^3/uL (1.8-7.7) Lymphocytes # (Auto) 2.1 x10^3/uL (1.0-4.8) Monocytes # (Auto) 0.9 x10^3/uL (0.0-1.1) Eosinophils # (Auto) 0.7 x10^3/uL (0.0-0.7) Basophils # (Auto) 0.1 x10^3/uL (0.0-0.2) Segmented Neutrophils % 72 % (35-66) Band Neutrophils % 16 % (0-9) Lymphocytes % 9 % (24-48) Eosinophils % 3 % (0-5) Nucleated Red Blood Cells 1 Smudge Cells Present Platelet Estimate Increased (ADEQUATE) Polychromasia Present Macrocytosis Present Sodium Level 143 mmol/L (136-145) Potassium Level 3.6 mmol/L (3.5-5.1) Chloride Level 102 mmol/L (98-107) Carbon Dioxide Level 40 mmol/L (21-32) Anion Gap 1 (6-14) Blood Urea Nitrogen 6 mg/dL (7-20) Creatinine 0.4 mg/dL (0.6-1.0) Estimated GFR (Cockcroft-Gault) 176.8 Glucose Level 175 mg/dL (70-99) Calcium Level 8.0 mg/dL (8.5-10.1) Test 07/12/21 06:37 Glucose (Fingerstick) 153 mg/dL (70-99) Assessment and Plan Assessmemt and Plan Acute hypoxic respiratory failure requiring BiPAP and subsequent intubation - due to COVID 19 with ARDS COVID-19 pneumonia Morbid obesity History of diabetes mellitus type 2 History of hypertension Severe malnutrition Septic shock Gram negative bacteremia - proteus Plan: 1) Continue ICU monitoring 2) vent weaning 3) Continue IV sedation with dexmedetomidine, fentanyl, and versed. 4) Continue IV vecuronium 5) Appreciate subspecialty consult: 6) SCD for DVT prophylaxis 7) DNR 8) Prognosis guarded at best (I am concerned she may not survive ) We will change vitamin C dosing to 1 g a day (currently on 9 g/day?) CC time 31 minutes Comment Review of Relevant I have reviewed the following items man (where applicable) has been applied. Medications: Current Medications Medications (Trade) Dose Ordered Sig/Jun Route PRN Reason Start Time Stop Time Status Last Admin Dose Admin Linezolid/Dextrose 300 ml @ 300 mls/hr Q12HR IV 07/12/21 09:00 07/12/21 08:08 Justifications for Admission Other Justification Acute hypoxic respiratory failure and Covid pneumonia HUI OLMSTEAD III DO Jul 12, 2021 08:58
[2021-07-12] MEDS: INSULIN GLARGINE SYRINGE. SQ SCH ×2 (09:01→23:12)
[2021-07-12] MEDS: MIDAZOLAM 100mg/100ml NS BAG 100 ML IV PRN ×2 (09:01→19:08)
--- NOTE | 2021-07-12 09:24 | PDOC ---
PULMONARY PROGRESS NOTES DATE: 07/12/21 TIME: 09:24 Subjective No significant overnight events patient continues to be 100% FiO2, 12 of PEEP Vitals Vital Signs Date Time Temp Pulse Resp B/P (MAP) Pulse Ox O2 Delivery O2 Flow Rate FiO2 07/12/21 09:20 82 Ventilator 07/12/21 09:00 100 20 99/48 (65) 07/12/21 08:00 101.4 101.4 Comments ros unable to obtain on vent sedated Lungs: Crackles Cardiovascular: S1 Abdomen: Soft Extremities: No Edema Skin: Warm Labs Laboratory Tests Test 07/10/21 11:38 07/10/21 17:34 07/11/21 00:39 07/11/21 06:05 Glucose (Fingerstick) 139 mg/dL (70-99) 139 mg/dL (70-99) 132 mg/dL (70-99) White Blood Count 14.7 x10^3/uL (4.0-11.0) Red Blood Count 3.36 x10^6/uL (3.50-5.40) Hemoglobin 8.6 g/dL (12.0-15.5) Hematocrit 26.2 % (36.0-47.0) Mean Corpuscular Volume 78 fL (79-100) Mean Corpuscular Hemoglobin 26 pg (25-35) Mean Corpuscular Hemoglobin Concent 33 g/dL (31-37) Red Cell Distribution Width 20.2 % (11.5-14.5) Platelet Count 442 x10^3/uL (140-400) Neutrophils (%) (Auto) 80 % (31-73) Lymphocytes (%) (Auto) 13 % (24-48) Monocytes (%) (Auto) 3 % (0-9) Eosinophils (%) (Auto) 4 % (0-3) Basophils (%) (Auto) 1 % (0-3) Neutrophils # (Auto) 11.8 x10^3/uL (1.8-7.7) Lymphocytes # (Auto) 1.8 x10^3/uL (1.0-4.8) Monocytes # (Auto) 0.4 x10^3/uL (0.0-1.1) Eosinophils # (Auto) 0.6 x10^3/uL (0.0-0.7) Basophils # (Auto) 0.1 x10^3/uL (0.0-0.2) Sodium Level 144 mmol/L (136-145) Potassium Level 3.5 mmol/L (3.5-5.1) Chloride Level 104 mmol/L (98-107) Carbon Dioxide Level 39 mmol/L (21-32) Anion Gap 1 (6-14) Blood Urea Nitrogen 11 mg/dL (7-20) Creatinine 0.3 mg/dL (0.6-1.0) Estimated GFR (Cockcroft-Gault) 246.4 Glucose Level 151 mg/dL (70-99) Calcium Level 7.9 mg/dL (8.5-10.1) Test 07/11/21 06:17 07/11/21 11:51 07/11/21 17:02 07/12/21 00:34 Glucose (Fingerstick) 148 mg/dL (70-99) 142 mg/dL (70-99) 153 mg/dL (70-99) 176 mg/dL (70-99) Test 07/12/21 06:20 07/12/21 06:37 White Blood Count 28.2 x10^3/uL (4.0-11.0) Red Blood Count 3.61 x10^6/uL (3.50-5.40) Hemoglobin 9.2 g/dL (12.0-15.5) Hematocrit 28.2 % (36.0-47.0) Mean Corpuscular Volume 78 fL (79-100) Mean Corpuscular Hemoglobin 26 pg (25-35) Mean Corpuscular Hemoglobin Concent 33 g/dL (31-37) Red Cell Distribution Width 20.7 % (11.5-14.5) Platelet Count 528 x10^3/uL (140-400) Neutrophils (%) (Auto) 87 % (31-73) Lymphocytes (%) (Auto) 7 % (24-48) Monocytes (%) (Auto) 3 % (0-9) Eosinophils (%) (Auto) 2 % (0-3) Basophils (%) (Auto) 0 % (0-3) Neutrophils # (Auto) 24.4 x10^3/uL (1.8-7.7) Lymphocytes # (Auto) 2.1 x10^3/uL (1.0-4.8) Monocytes # (Auto) 0.9 x10^3/uL (0.0-1.1) Eosinophils # (Auto) 0.7 x10^3/uL (0.0-0.7) Basophils # (Auto) 0.1 x10^3/uL (0.0-0.2) Segmented Neutrophils % 72 % (35-66) Band Neutrophils % 16 % (0-9) Lymphocytes % 9 % (24-48) Eosinophils % 3 % (0-5) Nucleated Red Blood Cells 1 Smudge Cells Present Platelet Estimate Increased (ADEQUATE) Polychromasia Present Macrocytosis Present Sodium Level 143 mmol/L (136-145) Potassium Level 3.6 mmol/L (3.5-5.1) Chloride Level 102 mmol/L (98-107) Carbon Dioxide Level 40 mmol/L (21-32) Anion Gap 1 (6-14) Blood Urea Nitrogen 6 mg/dL (7-20) Creatinine 0.4 mg/dL (0.6-1.0) Estimated GFR (Cockcroft-Gault) 176.8 Glucose Level 175 mg/dL (70-99) Calcium Level 8.0 mg/dL (8.5-10.1) Glucose (Fingerstick) 153 mg/dL (70-99) Laboratory Tests Test 07/11/21 11:51 07/11/21 17:02 07/12/21 00:34 07/12/21 06:20 Glucose (Fingerstick) 142 mg/dL (70-99) 153 mg/dL (70-99) 176 mg/dL (70-99) White Blood Count 28.2 x10^3/uL (4.0-11.0) Red Blood Count 3.61 x10^6/uL (3.50-5.40) Hemoglobin 9.2 g/dL (12.0-15.5) Hematocrit 28.2 % (36.0-47.0) Mean Corpuscular Volume 78 fL (79-100) Mean Corpuscular Hemoglobin 26 pg (25-35) Mean Corpuscular Hemoglobin Concent 33 g/dL (31-37) Red Cell Distribution Width 20.7 % (11.5-14.5) Platelet Count 528 x10^3/uL (140-400) Neutrophils (%) (Auto) 87 % (31-73) Lymphocytes (%) (Auto) 7 % (24-48) Monocytes (%) (Auto) 3 % (0-9) Eosinophils (%) (Auto) 2 % (0-3) Basophils (%) (Auto) 0 % (0-3) Neutrophils # (Auto) 24.4 x10^3/uL (1.8-7.7) Lymphocytes # (Auto) 2.1 x10^3/uL (1.0-4.8) Monocytes # (Auto) 0.9 x10^3/uL (0.0-1.1) Eosinophils # (Auto) 0.7 x10^3/uL (0.0-0.7) Basophils # (Auto) 0.1 x10^3/uL (0.0-0.2) Segmented Neutrophils % 72 % (35-66) Band Neutrophils % 16 % (0-9) Lymphocytes % 9 % (24-48) Eosinophils % 3 % (0-5) Nucleated Red Blood Cells 1 Smudge Cells Present Platelet Estimate Increased (ADEQUATE) Polychromasia Present Macrocytosis Present Sodium Level 143 mmol/L (136-145) Potassium Level 3.6 mmol/L (3.5-5.1) Chloride Level 102 mmol/L (98-107) Carbon Dioxide Level 40 mmol/L (21-32) Anion Gap 1 (6-14) Blood Urea Nitrogen 6 mg/dL (7-20) Creatinine 0.4 mg/dL (0.6-1.0) Estimated GFR (Cockcroft-Gault) 176.8 Glucose Level 175 mg/dL (70-99) Calcium Level 8.0 mg/dL (8.5-10.1) Test 07/12/21 06:37 Glucose (Fingerstick) 153 mg/dL (70-99) Medications Active Scripts Medications Dose Route/Sig Max Daily Dose Days Date Category Cyclobenzaprine Hcl 10 Mg Tablet 10 Mg PO TID 06/15/21 Reported Meloxicam 15 Mg Tablet 15 Mg PO DAILY 06/15/21 Reported Fluticasone Propionate Nasal [place] (Fluticasone Propionate) 16 Gm [place].susp 1 [place] NS DAILY 06/15/21 Reported Loratadine 10 Mg Tablet 10 Mg PO DAILY 06/15/21 Reported Furosemide 20 Mg Tablet 20 Mg PO DAILY 06/15/21 Reported Gabapentin (Gabapentin) 300 Mg Capsule 300 Mg PO TID 06/15/21 Reported Gabapentin (Gabapentin) 300 Mg Capsule 300 Mg PO TID 06/15/21 Reported Lisinopril 5 Mg Tablet 1 Tab PO DAILY 06/15/21 Reported Metformin Hcl 500 Mg Tablet 500 Mg PO BIDWMEALS 06/15/21 Reported Ozempic (Semaglutide) 0.25 Mg/0.2 Ml Pen.injctr 0.25 Mg SQ WEEKLY 06/15/21 Reported Impression . 1. Acute hypoxic respiratory failure secondary to ARDS/COVID-19 infection, worsening intubated 06/19/21. 2. Abnormal CT of chest secondary to COVID-19 infection/ARDS 3. Diabetes type 2 with hyperglycemia 4. Hypotension, secondary to sepsis 5. Hyperlipdemia 6. Obesity 7. sepsis with Proteus mirabilis bacteremia and pneumonia 8. Proteus mirabilis in the sputum. 9 gram-negative camilo bacteremia Proteus Chest x-ray reviewed, diffuse bilateral opacities unchanged Plan . 07/11 Continue current support Antibiotics per ID Long-term prognosis is poor updated 07/11 Spoke with family at the bedside, the daughter. Updated her Antibiotics per ID currently on meropenem Pressure control ventilation Daily Lasix DVT GI prophylaxis Status post remdesivir updated 07/10 Having low-grade fever antibiotics per ID currently on meropenem Continue pressure control ventilation CT abdomen pelvis pending Long-term prognosis poor Started on IV Lasix yesterday DVT GI prophylaxis Status post remdesivir Total cumulative critical care time of 30 minutes with no overlap Updated 07/09 Clinically patient not improving Continue empiric antibiotics Continue supportive care Discussed with RN, Petar x3 days Follow chest x-ray Increased rate CALVIN CAZARES MD Jul 12, 2021 09:24
[2021-07-12] MEDS: MICAFUNGIN 100 MG in IV DEXTROSE 5% 100ML 100 ML IV SCH (09:38)
[2021-07-12 15:43] LABS: BILIRUBIN,URINE NEGATIVE (NEG); CLARITY,URINE CLOUDY; NITRITE,URINE NEGATIVE (NEG); PROTEIN,URINE 30 mg/dL (NEG-TRACE)
[2021-07-12 15:48] LABS: COLOR,URINE DK YELLOW
[2021-07-12 15:53] LABS: WBC,URINE >40 /HPF (0-4); YEAST,URINE PRESENT /HPF
[2021-07-12 15:58] LABS: BACTERIA,URINE FEW /HPF (0-FEW); RBC,URINE OCC /HPF (0-2)
--- NOTE | 2021-07-12 17:15 | NUR ---
Wound/Ostomy Care Wound Type/Assessment: Wound care consult for right and left lateral abdomen, PU in between pt's folds, unstageable. Wounds noted with dark necrotic/slough tissue covering them, foul smell upon assessment. Pt is currently intubated and has been unable to turn d/t oxygenation issues, recently covid recovered per notes. No other wound noted on head to toe skin assessment. Both wound cleansed, measured and pictured. Tanika, RN at bedside at time of assessment. Treatment Recommendations/Plan: Cleanse wounds with wound wash and pat dry. Cover with honey alginate and foam, use chux cut into strips on folds. Change dressing q2d and prn. Turn q2h if pt is stable to turn. Education provided: intubated, unable to educate. POC discussed with tax staff accountant Offloading surface/device: purple wedge, pillows Recommended Referrals/Tests: n/a Discharge Recommendations for dressings: same as above, wound care will follow up on 07/18
[2021-07-13] VITALS (23 sets, daily range): BP systolic 97–170; BP diastolic 47–76
[2021-07-13] MEDS: INSULIN LISPRO 300 UNITS/3 ML VIAL. SQ SCH ×4 (01:38→17:56)
[2021-07-13] MEDS: PROPOFOL 100 ML IV PRN ×7 (02:06→20:16)
[2021-07-13] MEDS: DEXMEDETOMIDINE 400 MCG in IV NORMAL SALINE 100ML 96 ML IV PRN ×7 (02:50→21:33)
[2021-07-13] MEDS: NORCURON - VECURONIUM 50 MG in IV NORMAL SALINE 50ML 50 ML IV PRN ×5 (02:51→21:30)
[2021-07-13] MEDS: MEROPENEM 1 GM in IV NORMAL SALINE 100ML 100 ML IV SCH ×3 (06:17→21:06)
[2021-07-13 06:56] LABS: BASO # 0.1 x10^3/uL (0.0-0.2); BASO % 0 % (0-3); EOS # 0.5 x10^3/uL (0.0-0.7); EOS % 2 % (0-3); HEMATOCRIT 23.7 % (36.0-47.0); HEMOGLOBIN 7.7 g/dL (12.0-15.5); LYMPH # 2.6 x10^3/uL (1.0-4.8); LYMPH % 13 % (24-48); MEAN CORPUSCULAR HEMOGLOBIN 25 pg (25-35); MEAN CORPUSCULAR HGB CONC 32 g/dL (31-37); MEAN CORPUSCULAR VOLUME 78 fL (79-100); MONO # 0.6 x10^3/uL (0.0-1.1); MONO % 3 % (0-9); NEUT # 16.4 x10^3/uL (1.8-7.7); NEUT % 82 % (31-73); PLATELET COUNT 437 x10^3/uL (140-400); RED BLOOD COUNT 3.03 x10^6/uL (3.50-5.40); RED CELL DISTRIBUTION WIDTH 20.3 % (11.5-14.5); WHITE BLOOD COUNT 20.1 x10^3/uL (4.0-11.0)
[2021-07-13 07:10] LABS: CALCIUM 7.7 mg/dL (8.5-10.1); CREATININE 0.4 mg/dL (0.6-1.0); GFR 176.8; POTASSIUM 3.4 mmol/L (3.5-5.1)
[2021-07-13] MEDS: MIDAZOLAM 100mg/100ml NS BAG 100 ML IV PRN ×2 (08:03→16:57)
--- NOTE | 2021-07-13 08:31 | PDOC ---
Infectious Disease Note Subjective Subjective Intubated/ sedated ROS ROS Low-grade fever. No nausea vomiting Vital Sign Vital Signs Vital Signs Date Time Temp Pulse Resp B/P (MAP) Pulse Ox O2 Delivery O2 Flow Rate FiO2 07/13/21 07:14 87 Ventilator 07/13/21 06:00 76 20 105/50 (68) 07/13/21 04:00 100.2 100.2 Physical Exam PHYSICAL EXAM GENERAL: Sedated, orally intubated female, not in distress. VITAL SIGNS: Stable. HEENT: Both pupils are round and reacting. No conjunctival lesion. Mouth cannot be visualized, has orally intubated. NECK: Supple, no JVP, no lymphadenopathy. LUNGS: Clear. HEART: S1, S2 regular. ABDOMEN: Soft, nontender, no organomegaly. EXTREMITIES: No edema, cyanosis. SKIN: Unremarkable. NEUROLOGIC: The patient is sedated, intubated, neurologically unable to assess. Labs Lab Laboratory Tests Test 07/12/21 11:32 07/12/21 15:05 07/12/21 17:06 07/13/21 01:36 Glucose (Fingerstick) 156 mg/dL (70-99) 135 mg/dL (70-99) 156 mg/dL (70-99) Urine Collection Type U cath Urine Color Dk yellow Urine Clarity Cloudy Urine pH 6.0 (<5.0-8.0) Urine Specific [place] >=1.030 (1.000-1.030) Urine Protein 30 mg/dL (NEG-TRACE) Urine Glucose (UA) Negative mg/dL (NEG) Urine Ketones (Stick) Negative mg/dL (NEG) Urine Blood Negative (NEG) Urine Nitrite Negative (NEG) Urine Bilirubin Negative (NEG) Urine Urobilinogen Dipstick 2.0 mg/dL (0.2 mg/dL) Urine Leukocyte Esterase Small (NEG) Urine RBC Occ /HPF (0-2) Urine WBC >40 /HPF (0-4) Urine Bacteria Few /HPF (0-FEW) Urine Yeast Present /HPF Test 07/13/21 06:25 07/13/21 06:28 White Blood Count 20.1 x10^3/uL (4.0-11.0) Red Blood Count 3.03 x10^6/uL (3.50-5.40) Hemoglobin 7.7 g/dL (12.0-15.5) Hematocrit 23.7 % (36.0-47.0) Mean Corpuscular Volume 78 fL (79-100) Mean Corpuscular Hemoglobin 25 pg (25-35) Mean Corpuscular Hemoglobin Concent 32 g/dL (31-37) Red Cell Distribution Width 20.3 % (11.5-14.5) Platelet Count 437 x10^3/uL (140-400) Neutrophils (%) (Auto) 82 % (31-73) Lymphocytes (%) (Auto) 13 % (24-48) Monocytes (%) (Auto) 3 % (0-9) Eosinophils (%) (Auto) 2 % (0-3) Basophils (%) (Auto) 0 % (0-3) Neutrophils # (Auto) 16.4 x10^3/uL (1.8-7.7) Lymphocytes # (Auto) 2.6 x10^3/uL (1.0-4.8) Monocytes # (Auto) 0.6 x10^3/uL (0.0-1.1) Eosinophils # (Auto) 0.5 x10^3/uL (0.0-0.7) Basophils # (Auto) 0.1 x10^3/uL (0.0-0.2) Sodium Level 141 mmol/L (136-145) Potassium Level 3.4 mmol/L (3.5-5.1) Chloride Level 100 mmol/L (98-107) Carbon Dioxide Level 41 mmol/L (21-32) Anion Gap 0 (6-14) Blood Urea Nitrogen 11 mg/dL (7-20) Creatinine 0.4 mg/dL (0.6-1.0) Estimated GFR (Cockcroft-Gault) 176.8 Glucose Level 135 mg/dL (70-99) Calcium Level 7.7 mg/dL (8.5-10.1) Glucose (Fingerstick) 132 mg/dL (70-99) Micro Sputum culture Proteus Blood culture Proteus Urine has yeast Objective Assessment 1. Fever 2. COVID-19 infection. 3. Pulmonary infiltrate. 4. Respiratory failure. 5. Leukocytosis. 6. Morbid obesity. 7 G neg camilo bacteremia Proteus Plan Plan of Care Cont Merrem add Zyvox and micafungin supportive care CT abd and pelvis pending Now DNR ROBERTO HADDAD MD Jul 13, 2021 08:31
[2021-07-13] MEDS: fentaNYL HIGH DOSE PCA 55 ML IV PRN (08:37)
[2021-07-13] MEDS: LISINOPRIL 5 MG TABLET. PO SCH (09:00)
--- NOTE | 2021-07-13 09:25 | PDOC ---
PULMONARY PROGRESS NOTES DATE: 07/13/21 TIME: 09:25 Subjective No overnight events, 100% FiO2 12 PEEP Discussed with RN Vitals Vital Signs Date Time Temp Pulse Resp B/P (MAP) Pulse Ox O2 Delivery O2 Flow Rate FiO2 07/13/21 09:09 87 40.0 07/13/21 07:14 Ventilator 07/13/21 06:00 76 20 105/50 (68) 07/13/21 04:00 100.2 100.2 Comments ros unable to obtain on vent sedated Lungs: Crackles Cardiovascular: S1 Abdomen: Soft Extremities: No Edema Skin: Warm Labs Laboratory Tests Test 07/11/21 11:51 07/11/21 17:02 07/12/21 00:34 07/12/21 06:20 Glucose (Fingerstick) 142 mg/dL (70-99) 153 mg/dL (70-99) 176 mg/dL (70-99) White Blood Count 28.2 x10^3/uL (4.0-11.0) Red Blood Count 3.61 x10^6/uL (3.50-5.40) Hemoglobin 9.2 g/dL (12.0-15.5) Hematocrit 28.2 % (36.0-47.0) Mean Corpuscular Volume 78 fL (79-100) Mean Corpuscular Hemoglobin 26 pg (25-35) Mean Corpuscular Hemoglobin Concent 33 g/dL (31-37) Red Cell Distribution Width 20.7 % (11.5-14.5) Platelet Count 528 x10^3/uL (140-400) Neutrophils (%) (Auto) 87 % (31-73) Lymphocytes (%) (Auto) 7 % (24-48) Monocytes (%) (Auto) 3 % (0-9) Eosinophils (%) (Auto) 2 % (0-3) Basophils (%) (Auto) 0 % (0-3) Neutrophils # (Auto) 24.4 x10^3/uL (1.8-7.7) Lymphocytes # (Auto) 2.1 x10^3/uL (1.0-4.8) Monocytes # (Auto) 0.9 x10^3/uL (0.0-1.1) Eosinophils # (Auto) 0.7 x10^3/uL (0.0-0.7) Basophils # (Auto) 0.1 x10^3/uL (0.0-0.2) Segmented Neutrophils % 72 % (35-66) Band Neutrophils % 16 % (0-9) Lymphocytes % 9 % (24-48) Eosinophils % 3 % (0-5) Nucleated Red Blood Cells 1 Smudge Cells Present Platelet Estimate Increased (ADEQUATE) Polychromasia Present Macrocytosis Present Sodium Level 143 mmol/L (136-145) Potassium Level 3.6 mmol/L (3.5-5.1) Chloride Level 102 mmol/L (98-107) Carbon Dioxide Level 40 mmol/L (21-32) Anion Gap 1 (6-14) Blood Urea Nitrogen 6 mg/dL (7-20) Creatinine 0.4 mg/dL (0.6-1.0) Estimated GFR (Cockcroft-Gault) 176.8 Glucose Level 175 mg/dL (70-99) Calcium Level 8.0 mg/dL (8.5-10.1) Test 07/12/21 06:37 07/12/21 11:32 07/12/21 15:05 07/12/21 17:06 Glucose (Fingerstick) 153 mg/dL (70-99) 156 mg/dL (70-99) 135 mg/dL (70-99) Urine Collection Type U cath Urine Color Dk yellow Urine Clarity Cloudy Urine pH 6.0 (<5.0-8.0) Urine Specific [place] >=1.030 (1.000-1.030) Urine Protein 30 mg/dL (NEG-TRACE) Urine Glucose (UA) Negative mg/dL (NEG) Urine Ketones (Stick) Negative mg/dL (NEG) Urine Blood Negative (NEG) Urine Nitrite Negative (NEG) Urine Bilirubin Negative (NEG) Urine Urobilinogen Dipstick 2.0 mg/dL (0.2 mg/dL) Urine Leukocyte Esterase Small (NEG) Urine RBC Occ /HPF (0-2) Urine WBC >40 /HPF (0-4) Urine Bacteria Few /HPF (0-FEW) Urine Yeast Present /HPF Test 07/13/21 01:36 07/13/21 06:25 07/13/21 06:28 Glucose (Fingerstick) 156 mg/dL (70-99) 132 mg/dL (70-99) White Blood Count 20.1 x10^3/uL (4.0-11.0) Red Blood Count 3.03 x10^6/uL (3.50-5.40) Hemoglobin 7.7 g/dL (12.0-15.5) Hematocrit 23.7 % (36.0-47.0) Mean Corpuscular Volume 78 fL (79-100) Mean Corpuscular Hemoglobin 25 pg (25-35) Mean Corpuscular Hemoglobin Concent 32 g/dL (31-37) Red Cell Distribution Width 20.3 % (11.5-14.5) Platelet Count 437 x10^3/uL (140-400) Neutrophils (%) (Auto) 82 % (31-73) Lymphocytes (%) (Auto) 13 % (24-48) Monocytes (%) (Auto) 3 % (0-9) Eosinophils (%) (Auto) 2 % (0-3) Basophils (%) (Auto) 0 % (0-3) Neutrophils # (Auto) 16.4 x10^3/uL (1.8-7.7) Lymphocytes # (Auto) 2.6 x10^3/uL (1.0-4.8) Monocytes # (Auto) 0.6 x10^3/uL (0.0-1.1) Eosinophils # (Auto) 0.5 x10^3/uL (0.0-0.7) Basophils # (Auto) 0.1 x10^3/uL (0.0-0.2) Sodium Level 141 mmol/L (136-145) Potassium Level 3.4 mmol/L (3.5-5.1) Chloride Level 100 mmol/L (98-107) Carbon Dioxide Level 41 mmol/L (21-32) Anion Gap 0 (6-14) Blood Urea Nitrogen 11 mg/dL (7-20) Creatinine 0.4 mg/dL (0.6-1.0) Estimated GFR (Cockcroft-Gault) 176.8 Glucose Level 135 mg/dL (70-99) Calcium Level 7.7 mg/dL (8.5-10.1) Laboratory Tests Test 07/12/21 11:32 07/12/21 15:05 07/12/21 17:06 07/13/21 01:36 Glucose (Fingerstick) 156 mg/dL (70-99) 135 mg/dL (70-99) 156 mg/dL (70-99) Urine Collection Type U cath Urine Color Dk yellow Urine Clarity Cloudy Urine pH 6.0 (<5.0-8.0) Urine Specific [place] >=1.030 (1.000-1.030) Urine Protein 30 mg/dL (NEG-TRACE) Urine Glucose (UA) Negative mg/dL (NEG) Urine Ketones (Stick) Negative mg/dL (NEG) Urine Blood Negative (NEG) Urine Nitrite Negative (NEG) Urine Bilirubin Negative (NEG) Urine Urobilinogen Dipstick 2.0 mg/dL (0.2 mg/dL) Urine Leukocyte Esterase Small (NEG) Urine RBC Occ /HPF (0-2) Urine WBC >40 /HPF (0-4) Urine Bacteria Few /HPF (0-FEW) Urine Yeast Present /HPF Test 07/13/21 06:25 07/13/21 06:28 White Blood Count 20.1 x10^3/uL (4.0-11.0) Red Blood Count 3.03 x10^6/uL (3.50-5.40) Hemoglobin 7.7 g/dL (12.0-15.5) Hematocrit 23.7 % (36.0-47.0) Mean Corpuscular Volume 78 fL (79-100) Mean Corpuscular Hemoglobin 25 pg (25-35) Mean Corpuscular Hemoglobin Concent 32 g/dL (31-37) Red Cell Distribution Width 20.3 % (11.5-14.5) Platelet Count 437 x10^3/uL (140-400) Neutrophils (%) (Auto) 82 % (31-73) Lymphocytes (%) (Auto) 13 % (24-48) Monocytes (%) (Auto) 3 % (0-9) Eosinophils (%) (Auto) 2 % (0-3) Basophils (%) (Auto) 0 % (0-3) Neutrophils # (Auto) 16.4 x10^3/uL (1.8-7.7) Lymphocytes # (Auto) 2.6 x10^3/uL (1.0-4.8) Monocytes # (Auto) 0.6 x10^3/uL (0.0-1.1) Eosinophils # (Auto) 0.5 x10^3/uL (0.0-0.7) Basophils # (Auto) 0.1 x10^3/uL (0.0-0.2) Sodium Level 141 mmol/L (136-145) Potassium Level 3.4 mmol/L (3.5-5.1) Chloride Level 100 mmol/L (98-107) Carbon Dioxide Level 41 mmol/L (21-32) Anion Gap 0 (6-14) Blood Urea Nitrogen 11 mg/dL (7-20) Creatinine 0.4 mg/dL (0.6-1.0) Estimated GFR (Cockcroft-Gault) 176.8 Glucose Level 135 mg/dL (70-99) Calcium Level 7.7 mg/dL (8.5-10.1) Glucose (Fingerstick) 132 mg/dL (70-99) Medications Active Scripts Medications Dose Route/Sig Max Daily Dose Days Date Category Cyclobenzaprine Hcl 10 Mg Tablet 10 Mg PO TID 06/15/21 Reported Meloxicam 15 Mg Tablet 15 Mg PO DAILY 06/15/21 Reported Fluticasone Propionate Nasal Mazama (Fluticasone Propionate) 16 Gm Mazama.susp 1 Mazama NS DAILY 06/15/21 Reported Loratadine 10 Mg Tablet 10 Mg PO DAILY 06/15/21 Reported Furosemide 20 Mg Tablet 20 Mg PO DAILY 06/15/21 Reported Gabapentin (Gabapentin) 300 Mg Capsule 300 Mg PO TID 06/15/21 Reported Gabapentin (Gabapentin) 300 Mg Capsule 300 Mg PO TID 06/15/21 Reported Lisinopril 5 Mg Tablet 1 Tab PO DAILY 06/15/21 Reported Metformin Hcl 500 Mg Tablet 500 Mg PO BIDWMEALS 06/15/21 Reported Ozempic (Semaglutide) 0.25 Mg/0.2 Ml Pen.injctr 0.25 Mg SQ WEEKLY 06/15/21 Reported Impression . 1. Acute hypoxic respiratory failure secondary to ARDS/COVID-19 infection, worsening intubated 06/19/21. 2. Abnormal CT of chest secondary to COVID-19 infection/ARDS 3. Diabetes type 2 with hyperglycemia 4. Hypotension, secondary to sepsis 5. Hyperlipdemia 6. Obesity 7. sepsis with Proteus mirabilis bacteremia and pneumonia 8. Proteus mirabilis in the sputum. 9 gram-negative camilo bacteremia Proteus Chest x-ray reviewed, diffuse bilateral opacities unchanged Plan . Updated 07/13 Continue current support Antibiotics per ID No significant improvement this past week Case discussed with family several days ago Family informed that patient may not survive Replace potassium Chest x-ray from 07/12 was reviewed 07/12 Continue current support Antibiotics per ID Long-term prognosis is poor updated 07/11 Spoke with family at the bedside, the daughter. Updated her Antibiotics per ID currently on meropenem Pressure control ventilation Daily Lasix DVT GI prophylaxis Status post remdesivir CALVIN CAZARES MD Jul 13, 2021 09:25
[2021-07-13] MEDS: FUROSEMIDE 40 MG/4 ML VIAL. IVP SCH (10:03)
[2021-07-13] MEDS: THIAMINE 100 MG TABLET. PO SCH (10:04)
[2021-07-13] MEDS: ACETAMINOPHEN 325 MG TABLET. PO PRN (10:04)
[2021-07-13] MEDS: GABAPENTIN 300 MG CAPSULE. PO SCH ×3 (10:04→20:14)
[2021-07-13] MEDS: PANTOPRAZOLE IV PUSH 40 MG VIAL. IVP SCH (10:04)
[2021-07-13] MEDS: ZINC SULFATE 220 MG CAPSULE. PO SCH (10:04)
[2021-07-13] MEDS: ENOXAPARIN 40 MG/0.4 ML SYRINGE. SQ SCH ×2 (10:05→20:15)
[2021-07-13] MEDS: INSULIN GLARGINE SYRINGE. SQ SCH ×2 (10:06→21:10)
[2021-07-13] MEDS: ASCORBIC ACID 1,000 MG TABLET PO SCH (10:11)
[2021-07-13] MEDS: MICAFUNGIN 100 MG in IV DEXTROSE 5% 100ML 100 ML IV SCH (10:17)
--- NOTE | 2021-07-13 11:27 | PDOC ---
[employer] PROGRESS NOTE Date of Service DOS: DATE: 07/13/21 TIME: 11:26 Chief Complaint Chief Complaint Acute hypoxic respiratory failure requiring BiPAP and subsequent intubation - due to COVID 19 with ARDS COVID-19 pneumonia Morbid obesity History of diabetes mellitus type 2 History of hypertension Severe malnutrition Septic shock Gram negative bacteremia - proteus History of Present Illness History of Present Illness 07/13/2021 patient seen and examined in the ICU she is still on the vent volume control of 40 with 100% FiO2 a rate of 20 and 12 of PEEP sedated with Precedex fentanyl and Versed has Mccall to bedside drainage rectal bag in place chart reviewed discussed with RN she remains extremely critically ill 07/12/2021 Patient seen and examined in the ICU Chart reviewed Discussed with RN Patient's white count has bumped up to 28,000 Currently on pressure support with 40 cm/h2o 100% FiO2 12 of PEEP and satting 81% She remains critically ill Ms Pierce is a transfer from [facility] in [facility], 40-year- old female with past medical history of diabetes, hypertension, dyslipidemia and morbid obesity who complains of shortness of breath 1 week ago and went to urgent care and found out that she was positive for Covid. She came in at 5:00 in the morning at [facility] is very hypoxic and was found to be her oxygen saturation was 68% she was put on a nonrebreather 15 L and she was improved to 90 to 93%. Patient is [id number]. Patient is a poor historian. She does not know what kind of medication she takes for her medical history. 06/15: In the ICU. She was face time talking with family members. She was still on nonrebreather. Pulmonary consulted. 06/16: On Vapotherm. No major complaints. 06/17: Remains on Vapotherm although O2 requirement decreasing. Continue current plan. 06/18: On 40 L Vapotherm and now requiring NRB in addition. Afebrile and on broad-spectrum antibiotics. Remdesivir finishes today. 06/19: Intubated overnight in ICU. Afebrile. Currently breathing FiO2 100%. Completed remdesivir. We will continue IV steroids and antibiotics. 06/20: Low-grade fever overnight (T-max 99.7 F). Remains on vent, FiO2 90%, PEEP 10. Continue treatment with IV steroids and antibiotics. 06/21: Afebrile. On vent with FiO2 80%, PEEP 10. Cont treatment with antibiotics steroids total of 10 day course (steroid taper to begin 06/24). 06/22: Afebrile. Remains on ventilator with FiO2 70%, PEEP 10. Completed remdesivir. Continue antibiotics, steroids with slow taper. 06/23: Afebrile. On vent with FiO2 of 70, PEEP 10. Continue antibiotics for diffuse bilateral opacities. Continue steroids with slow taper 06/24: Afebrile. On vent with FiO2 60%, PEEP 9. Continue antibiotics. Today is day 10 of steroids; will begin Solu-Medrol taper tomorrow. 06/25: On vent with FiO2 65, PEEP 9. Afebrile. Completed 10 days of steroids; will begin Solu-Medrol taper today at 60 mg twice daily. 06/26: Intubated and sedated vent at 20/450/70/9. Insulin dose to 10 units twice daily. Solu-Medrol decreased to 40 mg daily. Cont with IV Lasix 06/27: Intubated and sedated. Vent settings at assist control at saturating 97%. Vent settings set at 16/80/9. ABG at 7.4 /43/58/32. 06/28: No acute events overnight. Patient continues to be intubated and sedated. Saturating 90% on assist control with vent settings of 16/80/9. 06/29: No acute events overnight patient saturating 98% on vent settings of 10/80/9. 06/30: Patient did have hypotensive episode during the day which required a 500 NS bolus. Possibly needing vasopressors. pressure support/80/9. 07/01: No acute events overnight. Patient saturating 99% on vent settings of 14 pressure support/80/9. Urine output of 3.6 L in the last 24 hours. 07/02: Paralyzed for vent dysynchrony. Saturating 100% on 14/70/9. Fever of 101.1 this morning. 07/03: Febrile 101.1 F. 70% FiO2 and 9 PEEP. Still requiring vecuronium for vent dyssynchrony. ID consulted for sepsis, ?VAP 07/04: T-max 102.6 F last 24 hours, afebrile overnight. Peripheral culture and culture from PICC and sputum and urine culture obtained. Now on meropenem and Zyvox. More hypoxic, ABG 7.4 1/57/48, requiring FiO2 90% PEEP of 9 07/05: Afebrile. ABG 7.3/66/60, FiO2 100% PEEP of 12. Sputum and blood cx proteus mirabilis. Urine with some yeast. Daughter bedside this morning noted she is thinking of withdrawing care. D/w patient's sister and nephew bedside patient has been aggressively cared for cont current care. 07/06: Afebrile overnight. Sedated on ventilator FiO2 100% PEEP 12, O2 saturation 90% on pulse oximetry, still requiring vecuronium for vent dyssynchrony. Labs pending. 07/07: Afebrile. Hb 9.4, ABG 2.97/65.8/54.7. Peak pressures over 50s pressure control currently paralyzed. Lasix on hold received albumin. Still requiring Levophed. CT abdomen pelvis pending. 07/08: Febrile to 100.6 F overnight. Vecuronium wean attempted and significantly dyssynchrony. Still requiring Levophed support. FiO2 100% 12 peak pressures in the 50s. Afebrile overnight. More hypoxic overnight, I:E ratio 2-1, paralyzed on vecuronium for dyssynchrony. FiO2 100% PEEP 12. WBC 10, Hb 8.1, platelets 314. Met with daughter, Lala, bedside and sister over the phone the continued decline and grim prognosis and they have requested DNR. 07/10/2021: Patient seen and examined in ICU. On pressure control of 40 with a rate of 20, 100% FiO2, and a PEEP of 12. SCD for DVT prophylaxis. Mccall to BSD. Rectal bag present. OG set at 40cc per hour. Sedated with fentanyl, propofol, and versed. On vecuronium drip. Triple lumen PICC line present on right arm. O2 saturation is still only 79%. Chest x-ray today showed stable life support devices and stable diffuse bilateral opacities. Discussed with RN. Chart reviewed. 07/11/2021 Patient seen and examined in the ICU He is still mechanically ventilated On pressure control with 100% FiO2 Mccall to BSD Rectal bag still present Sedated with propofol fentanyl and Versed Also has as needed vecuronium Her daughter is present I reviewed the case with her daughter extensively Chart reviewed Discussed with RN Patient is still critically ill Vitals/I&O Vitals/I&O: Vital Signs Date Time Temp Pulse Resp B/P (MAP) Pulse Ox O2 Delivery O2 Flow Rate FiO2 07/13/21 09:09 87 40.0 07/13/21 08:00 Mechanical Ventilator 07/13/21 08:00 100.2 82 20 114/57 (76) 100.2 I & O 07/12/21 07/12/21 07/13/21 15:00 23:00 07:00 Intake Total 740 ml 2018 ml 2889 ml Output Total 1275 ml 825 ml 360 ml Balance -535 ml 1193 ml 2529 ml Physical Exam Physical Exam: GENERAL: Sedated, orally intubated female, not in distress. VITAL SIGNS: Stable. HEENT: Both pupils are round and reacting. No conjunctival lesion. Mouth cannot be visualized, has orally intubated. NECK: Supple, no JVP, no lymphadenopathy. LUNGS: Clear. HEART: S1, S2 regular. ABDOMEN: Soft, nontender, no organomegaly. EXTREMITIES: No edema, cyanosis. SKIN: Unremarkable. NEUROLOGIC: The patient is sedated, intubated, neurologically unable to assess. General: No acute distress, Other (Intubated and sedated) Heart: Regular rate, Normal S1, Normal S2 Lungs: Crackles Abdomen: Normal bowel sounds, Soft Extremities: No clubbing, No edema, Normal pulses Skin: No rashes, No significant lesion Labs Labs: Laboratory Tests Test 07/12/21 11:32 07/12/21 15:05 07/12/21 17:06 07/13/21 01:36 Glucose (Fingerstick) 156 mg/dL (70-99) 135 mg/dL (70-99) 156 mg/dL (70-99) Urine Collection Type U cath Urine Color Dk yellow Urine Clarity Cloudy Urine pH 6.0 (<5.0-8.0) Urine Specific [place] >=1.030 (1.000-1.030) Urine Protein 30 mg/dL (NEG-TRACE) Urine Glucose (UA) Negative mg/dL (NEG) Urine Ketones (Stick) Negative mg/dL (NEG) Urine Blood Negative (NEG) Urine Nitrite Negative (NEG) Urine Bilirubin Negative (NEG) Urine Urobilinogen Dipstick 2.0 mg/dL (0.2 mg/dL) Urine Leukocyte Esterase Small (NEG) Urine RBC Occ /HPF (0-2) Urine WBC >40 /HPF (0-4) Urine Bacteria Few /HPF (0-FEW) Urine Yeast Present /HPF Test 07/13/21 06:25 07/13/21 06:28 White Blood Count 20.1 x10^3/uL (4.0-11.0) Red Blood Count 3.03 x10^6/uL (3.50-5.40) Hemoglobin 7.7 g/dL (12.0-15.5) Hematocrit 23.7 % (36.0-47.0) Mean Corpuscular Volume 78 fL (79-100) Mean Corpuscular Hemoglobin 25 pg (25-35) Mean Corpuscular Hemoglobin Concent 32 g/dL (31-37) Red Cell Distribution Width 20.3 % (11.5-14.5) Platelet Count 437 x10^3/uL (140-400) Neutrophils (%) (Auto) 82 % (31-73) Lymphocytes (%) (Auto) 13 % (24-48) Monocytes (%) (Auto) 3 % (0-9) Eosinophils (%) (Auto) 2 % (0-3) Basophils (%) (Auto) 0 % (0-3) Neutrophils # (Auto) 16.4 x10^3/uL (1.8-7.7) Lymphocytes # (Auto) 2.6 x10^3/uL (1.0-4.8) Monocytes # (Auto) 0.6 x10^3/uL (0.0-1.1) Eosinophils # (Auto) 0.5 x10^3/uL (0.0-0.7) Basophils # (Auto) 0.1 x10^3/uL (0.0-0.2) Sodium Level 141 mmol/L (136-145) Potassium Level 3.4 mmol/L (3.5-5.1) Chloride Level 100 mmol/L (98-107) Carbon Dioxide Level 41 mmol/L (21-32) Anion Gap 0 (6-14) Blood Urea Nitrogen 11 mg/dL (7-20) Creatinine 0.4 mg/dL (0.6-1.0) Estimated GFR (Cockcroft-Gault) 176.8 Glucose Level 135 mg/dL (70-99) Calcium Level 7.7 mg/dL (8.5-10.1) Glucose (Fingerstick) 132 mg/dL (70-99) Assessment and Plan Assessmemt and Plan Acute hypoxic respiratory failure requiring BiPAP and subsequent intubation - due to COVID 19 with ARDS COVID-19 pneumonia Morbid obesity History of diabetes mellitus type 2 History of hypertension Severe malnutrition Septic shock Gram negative bacteremia - proteus Plan: 1) Continue ICU monitoring 2) vent weaning 3) Continue IV sedation with dexmedetomidine, fentanyl, and versed. 4) Continue IV vecuronium 5) Appreciate subspecialty consult: 6) SCD for DVT prophylaxis 7) DNR 8) Prognosis guarded at best (I am concerned she may not survive ) trend labs CC time 32 minutes Comment Review of Relevant I have reviewed the following items man (where applicable) has been applied. Medications: Current Medications Medications (Trade) Dose Ordered Sig/Jun Route PRN Reason Start Time Stop Time Status Last Admin Dose Admin Ascorbic Acid (Vitamin C) 1,000 mg DAILY PO 07/13/21 09:00 07/13/21 10:11 Justifications for Admission Other Justification Acute hypoxic respiratory failure and Covid pneumonia HUI OLMSTEAD III DO Jul 13, 2021 11:27
--- NOTE | 2021-07-13 11:33 | NUR ---
SS following up with discharge planning. SS reviewed pt chart and discussed with pt RN. Pt is currently on the vent at 100%. COVID19 recovered. Pt on Propofol, Versed, Fentanyl, Precedex, and Vec. Pt on IV Lasix, IV Zyvox, IV Meropenem, and IV Micafungin. Not stable. SS will continue to follow for discharge planning.
[2021-07-13] MEDS ORDERED: KCL PER PROTOCOL MC PRN (12:15)
[2021-07-13] MEDS ORDERED: POTASSIUM CHLORIDE 20MEQ 100 ML IV ONE (13:00)
[2021-07-14] VITALS (24 sets, daily range): BP systolic 96–112; BP diastolic 50–63
[2021-07-14] MEDS: PROPOFOL 100 ML IV PRN ×9 (00:03→23:26)
[2021-07-14] MEDS: DEXMEDETOMIDINE 400 MCG in IV NORMAL SALINE 100ML 96 ML IV PRN ×9 (00:32→23:58)
[2021-07-14] MEDS: NORCURON - VECURONIUM 50 MG in IV NORMAL SALINE 50ML 50 ML IV PRN ×5 (02:32→21:39)
[2021-07-14] MEDS: MIDAZOLAM 100mg/100ml NS BAG 100 ML IV PRN ×3 (03:36→23:43)
--- NOTE | 2021-07-14 04:59 | RAD ---
Chest AP portable at 0413: Reason for examination: Respiratory failure. ARDS. Comparison is made to previous study dated 07/12/2021. Endotracheal tube, NG tube and right PICC line remain present. Heart size and mediastinum are unchang ed. Lung liao continue show diffuse pulmonary opacities bilaterally with no interval improvement ev ident. No gross pleural effusions or pneumothorax are evident. No acute bony abnormalities are seen. IMPRESSION: Diffuse pulmonary opacities bilaterally without interval improvement. Electronically signed by: Bibiana Saleh MD (07/14/2021 4:56 AM) DEQUAN
[2021-07-14] MEDS: INSULIN LISPRO 300 UNITS/3 ML VIAL. SQ SCH ×5 (06:00→23:50)
[2021-07-14] MEDS: MEROPENEM 1 GM in IV NORMAL SALINE 100ML 100 ML IV SCH ×3 (06:35→21:19)
[2021-07-14 07:00] LABS: CALCIUM 8.2 mg/dL (8.5-10.1); CREATININE 0.3 mg/dL (0.6-1.0); GFR 246.4; POTASSIUM 3.3 mmol/L (3.5-5.1)
[2021-07-14 07:03] LABS: BASO # 0.3 x10^3/uL (0.0-0.2); BASO % 2 % (0-3); EOS # 0.4 x10^3/uL (0.0-0.7); EOS % 3 % (0-3); HEMATOCRIT 24.6 % (36.0-47.0); HEMOGLOBIN 7.8 g/dL (12.0-15.5); LYMPH # 1.6 x10^3/uL (1.0-4.8); LYMPH % 10 % (24-48); MEAN CORPUSCULAR HEMOGLOBIN 25 pg (25-35); MEAN CORPUSCULAR HGB CONC 32 g/dL (31-37); MEAN CORPUSCULAR VOLUME 78 fL (79-100); MONO # 0.5 x10^3/uL (0.0-1.1); MONO % 3 % (0-9); NEUT # 12.5 x10^3/uL (1.8-7.7); NEUT % 82 % (31-73); PLATELET COUNT 462 x10^3/uL (140-400); RED BLOOD COUNT 3.14 x10^6/uL (3.50-5.40); RED CELL DISTRIBUTION WIDTH 20.9 % (11.5-14.5); WHITE BLOOD COUNT 15.3 x10^3/uL (4.0-11.0)
[2021-07-14] MEDS: ZINC SULFATE 220 MG CAPSULE. PO SCH (07:22)
[2021-07-14] MEDS: GABAPENTIN 300 MG CAPSULE. PO SCH ×3 (07:22→20:14)
[2021-07-14] MEDS: THIAMINE 100 MG TABLET. PO SCH (07:22)
[2021-07-14] MEDS: ASCORBIC ACID 1,000 MG TABLET PO SCH (07:22)
[2021-07-14] MEDS: PANTOPRAZOLE IV PUSH 40 MG VIAL. IVP SCH (07:22)
[2021-07-14] MEDS: FUROSEMIDE 40 MG/4 ML VIAL. IVP SCH (07:23)
[2021-07-14] MEDS: LISINOPRIL 5 MG TABLET. PO SCH (07:23)
[2021-07-14] MEDS: ENOXAPARIN 40 MG/0.4 ML SYRINGE. SQ SCH ×2 (07:23→20:14)
[2021-07-14] MEDS: POTASSIUM CHLORIDE 20MEQ 100 ML IV SCH ×2 (07:43→08:45)
[2021-07-14] MEDS: INSULIN GLARGINE SYRINGE. SQ SCH ×2 (07:43→21:19)
--- NOTE | 2021-07-14 08:50 | PDOC ---
Infectious Disease Note Subjective Subjective Intubated/ sedated ROS ROS No nausea vomiting diarrhea chest pain shortness of breath Vital Sign Vital Signs Vital Signs Date Time Temp Pulse Resp B/P (MAP) Pulse Ox O2 Delivery O2 Flow Rate FiO2 07/14/21 08:00 98.4 79 20 112/63 (79) 83 Ventilator 98.4 07/13/21 09:09 40.0 Physical Exam PHYSICAL EXAM GENERAL: Sedated, orally intubated female, not in distress. VITAL SIGNS: Stable. HEENT: Both pupils are round and reacting. No conjunctival lesion. Mouth cannot be visualized, has orally intubated. NECK: Supple, no JVP, no lymphadenopathy. LUNGS: Clear. HEART: S1, S2 regular. ABDOMEN: Soft, nontender, no organomegaly. EXTREMITIES: No edema, cyanosis. SKIN: Unremarkable. NEUROLOGIC: The patient is sedated, intubated, neurologically unable to assess. Labs Lab Laboratory Tests Test 07/13/21 14:00 07/13/21 17:52 07/14/21 00:07 07/14/21 06:25 Glucose (Fingerstick) 134 mg/dL (70-99) 126 mg/dL (70-99) 135 mg/dL (70-99) White Blood Count 15.3 x10^3/uL (4.0-11.0) Red Blood Count 3.14 x10^6/uL (3.50-5.40) Hemoglobin 7.8 g/dL (12.0-15.5) Hematocrit 24.6 % (36.0-47.0) Mean Corpuscular Volume 78 fL (79-100) Mean Corpuscular Hemoglobin 25 pg (25-35) Mean Corpuscular Hemoglobin Concent 32 g/dL (31-37) Red Cell Distribution Width 20.9 % (11.5-14.5) Platelet Count 462 x10^3/uL (140-400) Neutrophils (%) (Auto) 82 % (31-73) Lymphocytes (%) (Auto) 10 % (24-48) Monocytes (%) (Auto) 3 % (0-9) Eosinophils (%) (Auto) 3 % (0-3) Basophils (%) (Auto) 2 % (0-3) Neutrophils # (Auto) 12.5 x10^3/uL (1.8-7.7) Lymphocytes # (Auto) 1.6 x10^3/uL (1.0-4.8) Monocytes # (Auto) 0.5 x10^3/uL (0.0-1.1) Eosinophils # (Auto) 0.4 x10^3/uL (0.0-0.7) Basophils # (Auto) 0.3 x10^3/uL (0.0-0.2) Sodium Level 141 mmol/L (136-145) Potassium Level 3.3 mmol/L (3.5-5.1) Chloride Level 102 mmol/L (98-107) Carbon Dioxide Level 39 mmol/L (21-32) Anion Gap 0 (6-14) Blood Urea Nitrogen 9 mg/dL (7-20) Creatinine 0.3 mg/dL (0.6-1.0) Estimated GFR (Cockcroft-Gault) 246.4 Glucose Level 138 mg/dL (70-99) Calcium Level 8.2 mg/dL (8.5-10.1) Test 07/14/21 06:38 Glucose (Fingerstick) 136 mg/dL (70-99) Micro Recent blood cultures negative Sputum culture is negative Objective Assessment 1. Fever 2. COVID-19 infection. 3. Pulmonary infiltrate. 4. Respiratory failure. 5. Leukocytosis. 6. Morbid obesity. 7 G neg camilo bacteremia Proteus Plan Plan of Care Cont Merrem add Zyvox and micafungin supportive care CT abd and pelvis pending Now DNR ROBERTO HADDAD MD Jul 14, 2021 08:50
--- NOTE | 2021-07-14 09:48 | PDOC ---
PULMONARY PROGRESS NOTES DATE: 07/14/21 TIME: 09:41 Subjective Remains on vent support 100% and PEEP of 12 no overnight concerns from nursing afebrile Vitals Vital Signs Date Time Temp Pulse Resp B/P (MAP) Pulse Ox O2 Delivery O2 Flow Rate FiO2 07/14/21 09:00 82 20 111/61 (78) 86 Ventilator 07/14/21 08:00 98.4 98.4 07/13/21 09:09 40.0 Comments ros unable to obtain on vent sedated Lungs: Crackles Cardiovascular: S1 Abdomen: Soft Extremities: No Edema Skin: Warm Labs Laboratory Tests Test 07/12/21 11:32 07/12/21 15:05 07/12/21 17:06 07/13/21 01:36 Glucose (Fingerstick) 156 mg/dL (70-99) 135 mg/dL (70-99) 156 mg/dL (70-99) Urine Collection Type U cath Urine Color Dk yellow Urine Clarity Cloudy Urine pH 6.0 (<5.0-8.0) Urine Specific [place] >=1.030 (1.000-1.030) Urine Protein 30 mg/dL (NEG-TRACE) Urine Glucose (UA) Negative mg/dL (NEG) Urine Ketones (Stick) Negative mg/dL (NEG) Urine Blood Negative (NEG) Urine Nitrite Negative (NEG) Urine Bilirubin Negative (NEG) Urine Urobilinogen Dipstick 2.0 mg/dL (0.2 mg/dL) Urine Leukocyte Esterase Small (NEG) Urine RBC Occ /HPF (0-2) Urine WBC >40 /HPF (0-4) Urine Bacteria Few /HPF (0-FEW) Urine Yeast Present /HPF Test 07/13/21 06:25 07/13/21 06:28 07/13/21 14:00 07/13/21 17:52 White Blood Count 20.1 x10^3/uL (4.0-11.0) Red Blood Count 3.03 x10^6/uL (3.50-5.40) Hemoglobin 7.7 g/dL (12.0-15.5) Hematocrit 23.7 % (36.0-47.0) Mean Corpuscular Volume 78 fL (79-100) Mean Corpuscular Hemoglobin 25 pg (25-35) Mean Corpuscular Hemoglobin Concent 32 g/dL (31-37) Red Cell Distribution Width 20.3 % (11.5-14.5) Platelet Count 437 x10^3/uL (140-400) Neutrophils (%) (Auto) 82 % (31-73) Lymphocytes (%) (Auto) 13 % (24-48) Monocytes (%) (Auto) 3 % (0-9) Eosinophils (%) (Auto) 2 % (0-3) Basophils (%) (Auto) 0 % (0-3) Neutrophils # (Auto) 16.4 x10^3/uL (1.8-7.7) Lymphocytes # (Auto) 2.6 x10^3/uL (1.0-4.8) Monocytes # (Auto) 0.6 x10^3/uL (0.0-1.1) Eosinophils # (Auto) 0.5 x10^3/uL (0.0-0.7) Basophils # (Auto) 0.1 x10^3/uL (0.0-0.2) Sodium Level 141 mmol/L (136-145) Potassium Level 3.4 mmol/L (3.5-5.1) Chloride Level 100 mmol/L (98-107) Carbon Dioxide Level 41 mmol/L (21-32) Anion Gap 0 (6-14) Blood Urea Nitrogen 11 mg/dL (7-20) Creatinine 0.4 mg/dL (0.6-1.0) Estimated GFR (Cockcroft-Gault) 176.8 Glucose Level 135 mg/dL (70-99) Calcium Level 7.7 mg/dL (8.5-10.1) Glucose (Fingerstick) 132 mg/dL (70-99) 134 mg/dL (70-99) 126 mg/dL (70-99) Test 07/14/21 00:07 07/14/21 06:25 07/14/21 06:38 Glucose (Fingerstick) 135 mg/dL (70-99) 136 mg/dL (70-99) White Blood Count 15.3 x10^3/uL (4.0-11.0) Red Blood Count 3.14 x10^6/uL (3.50-5.40) Hemoglobin 7.8 g/dL (12.0-15.5) Hematocrit 24.6 % (36.0-47.0) Mean Corpuscular Volume 78 fL (79-100) Mean Corpuscular Hemoglobin 25 pg (25-35) Mean Corpuscular Hemoglobin Concent 32 g/dL (31-37) Red Cell Distribution Width 20.9 % (11.5-14.5) Platelet Count 462 x10^3/uL (140-400) Neutrophils (%) (Auto) 82 % (31-73) Lymphocytes (%) (Auto) 10 % (24-48) Monocytes (%) (Auto) 3 % (0-9) Eosinophils (%) (Auto) 3 % (0-3) Basophils (%) (Auto) 2 % (0-3) Neutrophils # (Auto) 12.5 x10^3/uL (1.8-7.7) Lymphocytes # (Auto) 1.6 x10^3/uL (1.0-4.8) Monocytes # (Auto) 0.5 x10^3/uL (0.0-1.1) Eosinophils # (Auto) 0.4 x10^3/uL (0.0-0.7) Basophils # (Auto) 0.3 x10^3/uL (0.0-0.2) Sodium Level 141 mmol/L (136-145) Potassium Level 3.3 mmol/L (3.5-5.1) Chloride Level 102 mmol/L (98-107) Carbon Dioxide Level 39 mmol/L (21-32) Anion Gap 0 (6-14) Blood Urea Nitrogen 9 mg/dL (7-20) Creatinine 0.3 mg/dL (0.6-1.0) Estimated GFR (Cockcroft-Gault) 246.4 Glucose Level 138 mg/dL (70-99) Calcium Level 8.2 mg/dL (8.5-10.1) Laboratory Tests Test 07/13/21 14:00 07/13/21 17:52 07/14/21 00:07 07/14/21 06:25 Glucose (Fingerstick) 134 mg/dL (70-99) 126 mg/dL (70-99) 135 mg/dL (70-99) White Blood Count 15.3 x10^3/uL (4.0-11.0) Red Blood Count 3.14 x10^6/uL (3.50-5.40) Hemoglobin 7.8 g/dL (12.0-15.5) Hematocrit 24.6 % (36.0-47.0) Mean Corpuscular Volume 78 fL (79-100) Mean Corpuscular Hemoglobin 25 pg (25-35) Mean Corpuscular Hemoglobin Concent 32 g/dL (31-37) Red Cell Distribution Width 20.9 % (11.5-14.5) Platelet Count 462 x10^3/uL (140-400) Neutrophils (%) (Auto) 82 % (31-73) Lymphocytes (%) (Auto) 10 % (24-48) Monocytes (%) (Auto) 3 % (0-9) Eosinophils (%) (Auto) 3 % (0-3) Basophils (%) (Auto) 2 % (0-3) Neutrophils # (Auto) 12.5 x10^3/uL (1.8-7.7) Lymphocytes # (Auto) 1.6 x10^3/uL (1.0-4.8) Monocytes # (Auto) 0.5 x10^3/uL (0.0-1.1) Eosinophils # (Auto) 0.4 x10^3/uL (0.0-0.7) Basophils # (Auto) 0.3 x10^3/uL (0.0-0.2) Sodium Level 141 mmol/L (136-145) Potassium Level 3.3 mmol/L (3.5-5.1) Chloride Level 102 mmol/L (98-107) Carbon Dioxide Level 39 mmol/L (21-32) Anion Gap 0 (6-14) Blood Urea Nitrogen 9 mg/dL (7-20) Creatinine 0.3 mg/dL (0.6-1.0) Estimated GFR (Cockcroft-Gault) 246.4 Glucose Level 138 mg/dL (70-99) Calcium Level 8.2 mg/dL (8.5-10.1) Test 07/14/21 06:38 Glucose (Fingerstick) 136 mg/dL (70-99) Medications Active Scripts Medications Dose Route/Sig Max Daily Dose Days Date Category Cyclobenzaprine Hcl 10 Mg Tablet 10 Mg PO TID 06/15/21 Reported Meloxicam 15 Mg Tablet 15 Mg PO DAILY 06/15/21 Reported Fluticasone Propionate Nasal [place] (Fluticasone Propionate) 16 Gm [place].susp 1 [place] NS DAILY 06/15/21 Reported Loratadine 10 Mg Tablet 10 Mg PO DAILY 06/15/21 Reported Furosemide 20 Mg Tablet 20 Mg PO DAILY 06/15/21 Reported Gabapentin (Gabapentin) 300 Mg Capsule 300 Mg PO TID 06/15/21 Reported Gabapentin (Gabapentin) 300 Mg Capsule 300 Mg PO TID 06/15/21 Reported Lisinopril 5 Mg Tablet 1 Tab PO DAILY 06/15/21 Reported Metformin Hcl 500 Mg Tablet 500 Mg PO BIDWMEALS 06/15/21 Reported Ozempic (Semaglutide) 0.25 Mg/0.2 Ml Pen.injctr 0.25 Mg SQ WEEKLY 06/15/21 Reported Comments CXR 07/14/21 IMPRESSION: Diffuse pulmonary opacities bilaterally without interval improvement. Impression . 1. Acute hypoxic respiratory failure secondary to ARDS/COVID-19 infection, worsening intubated 06/19/21. 2. Ab[address] CT of chest secondary to COVID-19 infection/ARDS 3. Diabetes type 2 with hyperglycemia 4. Hypotension, secondary to sepsis--resolved 5. Hyperlipdemia 6. Obesity 7. sepsis with Proteus mirabilis bacteremia and pneumonia 8. Proteus mirabilis in the sputum. 9 gram-negative camilo bacteremia Proteus Plan . Updated 07/14/21 Continue current vent support, currently PC mode and 100% and PEEP of 12 Continue ABX per ID Follow CXR/ ABG -- no changes today PT. is now a DNR DVT/GI PPX D/W RN and RT Very poor prognosis likely not to survive Updated 07/13 Continue current support Antibiotics per ID No significant improvement this past week Case discussed with family several days ago Family informed that patient may not survive Replace potassium Chest x-ray from 07/12 was reviewed 07/12 Continue current support Antibiotics per ID Long-term prognosis is poor NICOLETTE MORALES MD Jul 14, 2021 09:48
[2021-07-14] MEDS: MICAFUNGIN 100 MG in IV DEXTROSE 5% 100ML 100 ML IV SCH (10:56)
[2021-07-14] MEDS: fentaNYL HIGH DOSE PCA 55 ML IV PRN (10:56)
--- NOTE | 2021-07-14 12:38 | PDOC ---
[employer] PROGRESS NOTE Date of Service DOS: DATE: 07/14/21 TIME: 12:37 Chief Complaint Chief Complaint Acute hypoxic respiratory failure requiring BiPAP and subsequent intubation - due to COVID 19 with ARDS COVID-19 pneumonia Morbid obesity History of diabetes mellitus type 2 History of hypertension Severe malnutrition Septic shock Gram negative bacteremia - proteus History of Present Illness History of Present Illness 07/14/2021 Patient seen and examined in the ICU She remains mechanically ventilated Pressure control with 40/1% FiO2 and 12 of PEEP and a rate of 20 Discussed with RN Chart reviewed Mccall bedside drainage Rectal bag in place She is still very critically ill 07/13/2021 patient seen and examined in the ICU she is still on the vent volume control of 40 with 100% FiO2 a rate of 20 and 12 of PEEP sedated with Precedex fentanyl and Versed has Mccall to bedside drainage rectal bag in place chart reviewed discussed with RN she remains extremely critically ill 07/12/2021 Patient seen and examined in the ICU Chart reviewed Discussed with RN Patient's white count has bumped up to 28,000 Currently on pressure support with 40 cm/h2o 100% FiO2 12 of PEEP and satting 81% She remains critically ill Ms Pierce is a transfer from [facility] in [facility], 40-year- old female with past medical history of diabetes, hypertension, dyslipidemia and morbid obesity who complains of shortness of breath 1 week ago and went to urgent care and found out that she was positive for Covid. She came in at 5:00 in the morning at [facility] is very hypoxic and was found to be her oxygen saturation was 68% she was put on a nonrebreather 15 L and she was improved to 90 to 93%. Patient is [id number]. Patient is a poor historian. She does not know what kind of medication she takes for her medical history. 06/15: In the ICU. She was face time talking with family members. She was still on nonrebreather. Pulmonary consulted. 06/16: On Vapotherm. No major complaints. 06/17: Remains on Vapotherm although O2 requirement decreasing. Continue current plan. 06/18: On 40 L Vapotherm and now requiring NRB in addition. Afebrile and on broad-spectrum antibiotics. Remdesivir finishes today. 06/19: Intubated overnight in ICU. Afebrile. Currently breathing FiO2 100%. Completed remdesivir. We will continue IV steroids and antibiotics. 06/20: Low-grade fever overnight (T-max 99.7 F). Remains on vent, FiO2 90%, PEEP 10. Continue treatment with IV steroids and antibiotics. 06/21: Afebrile. On vent with FiO2 80%, PEEP 10. Cont treatment with antibiotics steroids total of 10 day course (steroid taper to begin 06/24). 06/22: Afebrile. Remains on ventilator with FiO2 70%, PEEP 10. Completed remdesivir. Continue antibiotics, steroids with slow taper. 06/23: Afebrile. On vent with FiO2 of 70, PEEP 10. Continue antibiotics for diffuse bilateral opacities. Continue steroids with slow taper 06/24: Afebrile. On vent with FiO2 60%, PEEP 9. Continue antibiotics. Today is day 10 of steroids; will begin Solu-Medrol taper tomorrow. 06/25: On vent with FiO2 65, PEEP 9. Afebrile. Completed 10 days of steroids; will begin Solu-Medrol taper today at 60 mg twice daily. 06/26: Intubated and sedated vent at 20/450/70/9. Insulin dose to 10 units twice daily. Solu-Medrol decreased to 40 mg daily. Cont with IV Lasix 06/27: Intubated and sedated. Vent settings at assist control at saturating 97%. Vent settings set at 16/80/9. ABG at 7.4 843/58/32. 06/28: No acute events overnight. Patient continues to be intubated and sedated. Saturating 90% on assist control with vent settings of 16/80/9. 06/29: No acute events overnight patient saturating 98% on vent settings of 10/80/9. 06/30: Patient did have hypotensive episode during the day which required a 500 NS bolus. Possibly needing vasopressors. pressure support/80/9. 07/01: No acute events overnight. Patient saturating 99% on vent settings of 14 pressure support/80/9. Urine output of 3.6 L in the last 24 hours. 07/02: Paralyzed for vent dysynchrony. Saturating 100% on 14/70/9. Fever of 101.1 this morning. 07/03: Febrile 101.1 F. 70% FiO2 and 9 PEEP. Still requiring vecuronium for vent dyssynchrony. ID consulted for sepsis, ?VAP 07/04: T-max 102.6 F last 24 hours, afebrile overnight. Peripheral culture and culture from PICC and sputum and urine culture obtained. Now on meropenem and Zyvox. More hypoxic, ABG 7.4 1/57/48, requiring FiO2 90% PEEP of 9 07/05: Afebrile. ABG 7.3/66/60, FiO2 100% PEEP of 12. Sputum and blood cx proteus mirabilis. Urine with some yeast. Daughter bedside this morning noted she is thinking of withdrawing care. D/w patient's sister and nephew bedside patient has been aggressively cared for cont current care. 07/06: Afebrile overnight. Sedated on ventilator FiO2 100% PEEP 12, O2 saturation 90% on pulse oximetry, still requiring vecuronium for vent dyssynchrony. Labs pending. 07/07: Afebrile. Hb 9.4, ABG 2.97/65.8/54.7. Peak pressures over 50s pressure control currently paralyzed. Lasix on hold received albumin. Still requiring Levophed. CT abdomen pelvis pending. 07/08: Febrile to 100.6 F overnight. Vecuronium wean attempted and significantly dyssynchrony. Still requiring Levophed support. FiO2 100% 12 peak pressures in the 50s. Afebrile overnight. More hypoxic overnight, I:E ratio 2-1, paralyzed on vecuronium for dyssynchrony. FiO2 100% PEEP 12. WBC 10, Hb 8.1, platelets 314. Met with daughter, Lala, bedside and sister over the phone the continued decline and grim prognosis and they have requested DNR. 07/10/2021: Patient seen and examined in ICU. On pressure control of 40 with a rate of 20, 100% FiO2, and a PEEP of 12. SCD for DVT prophylaxis. Mccall to BSD. Rectal bag present. OG set at 40cc per hour. Sedated with fentanyl, propofol, and versed. On vecuronium drip. Triple lumen PICC line present on right arm. O2 saturation is still only 79%. Chest x-ray today showed stable life support devices and stable diffuse bilateral opacities. Discussed with RN. Chart reviewed. 07/11/2021 Patient seen and examined in the ICU He is still mechanically ventilated On pressure control with 100% FiO2 Mccall to BSD Rectal bag still present Sedated with propofol fentanyl and Versed Also has as needed vecuronium Her daughter is present I reviewed the case with her daughter extensively Chart reviewed Discussed with RN Patient is still critically ill Vitals/I&O Vitals/I&O: Vital Signs Date Time Temp Pulse Resp B/P (MAP) Pulse Ox O2 Delivery O2 Flow Rate FiO2 07/14/21 12:00 98.8 75 20 100/53 (69) 86 Ventilator 98.8 07/13/21 09:09 40.0 I & O 07/13/21 07/13/21 07/14/21 15:00 23:00 07:00 Intake Total 640 ml 1790.84 ml 1306 ml Output Total 850 ml 900 ml 550 ml Balance -210 ml 890.84 ml 756 ml Physical Exam Physical Exam: GENERAL: Sedated, orally intubated female, not in distress. VITAL SIGNS: Stable. HEENT: Both pupils are round and reacting. No conjunctival lesion. Mouth cannot be visualized, has orally intubated. NECK: Supple, no JVP, no lymphadenopathy. LUNGS: Clear. HEART: S1, S2 regular. ABDOMEN: Soft, nontender, no organomegaly. EXTREMITIES: No edema, cyanosis. SKIN: Unremarkable. NEUROLOGIC: The patient is sedated, intubated, neurologically unable to assess. General: No acute distress, Other (Intubated and sedated) Heart: Regular rate, Normal S1, Normal S2 Lungs: Crackles Abdomen: Normal bowel sounds, Soft Extremities: No clubbing, No edema, Normal pulses Skin: No rashes, No significant lesion Labs Labs: Laboratory Tests Test 07/13/21 14:00 07/13/21 17:52 07/14/21 00:07 07/14/21 06:25 Glucose (Fingerstick) 134 mg/dL (70-99) 126 mg/dL (70-99) 135 mg/dL (70-99) White Blood Count 15.3 x10^3/uL (4.0-11.0) Red Blood Count 3.14 x10^6/uL (3.50-5.40) Hemoglobin 7.8 g/dL (12.0-15.5) Hematocrit 24.6 % (36.0-47.0) Mean Corpuscular Volume 78 fL (79-100) Mean Corpuscular Hemoglobin 25 pg (25-35) Mean Corpuscular Hemoglobin Concent 32 g/dL (31-37) Red Cell Distribution Width 20.9 % (11.5-14.5) Platelet Count 462 x10^3/uL (140-400) Neutrophils (%) (Auto) 82 % (31-73) Lymphocytes (%) (Auto) 10 % (24-48) Monocytes (%) (Auto) 3 % (0-9) Eosinophils (%) (Auto) 3 % (0-3) Basophils (%) (Auto) 2 % (0-3) Neutrophils # (Auto) 12.5 x10^3/uL (1.8-7.7) Lymphocytes # (Auto) 1.6 x10^3/uL (1.0-4.8) Monocytes # (Auto) 0.5 x10^3/uL (0.0-1.1) Eosinophils # (Auto) 0.4 x10^3/uL (0.0-0.7) Basophils # (Auto) 0.3 x10^3/uL (0.0-0.2) Sodium Level 141 mmol/L (136-145) Potassium Level 3.3 mmol/L (3.5-5.1) Chloride Level 102 mmol/L (98-107) Carbon Dioxide Level 39 mmol/L (21-32) Anion Gap 0 (6-14) Blood Urea Nitrogen 9 mg/dL (7-20) Creatinine 0.3 mg/dL (0.6-1.0) Estimated GFR (Cockcroft-Gault) 246.4 Glucose Level 138 mg/dL (70-99) Calcium Level 8.2 mg/dL (8.5-10.1) Test 07/14/21 06:38 07/14/21 11:33 Glucose (Fingerstick) 136 mg/dL (70-99) 160 mg/dL (70-99) Assessment and Plan Assessmemt and Plan Acute hypoxic respiratory failure requiring BiPAP and subsequent intubation - due to COVID 19 with ARDS COVID-19 pneumonia Morbid obesity History of diabetes mellitus type 2 History of hypertension Severe malnutrition Septic shock Gram negative bacteremia - proteus Plan: 1) Continue ICU monitoring 2) vent weaning 3) Continue IV sedation with dexmedetomidine, fentanyl, and versed. 4) Continue IV vecuronium 5) Appreciate subspecialty consult: 6) SCD for DVT prophylaxis 7) DNR 8) Prognosis guarded at best (I am concerned she may not survive ) trend labs CC time 31 minutes Comment Review of Relevant I have reviewed the following items man (where applicable) has been applied. Medications: Current Medications Medications (Trade) Dose Ordered Sig/Jun Route PRN Reason Start Time Stop Time Status Last Admin Dose Admin Potassium Chloride/Water 100 ml @ 100 mls/hr 1X ONCE IV 07/13/21 13:00 07/13/21 13:59 DC 07/13/21 14:02 Potassium Chloride/Water 100 ml @ 100 mls/hr Q1H IV 07/14/21 08:00 07/14/21 09:59 DC 07/14/21 08:45 Justifications for Admission Other Justification Acute hypoxic respiratory failure and Covid pneumonia HUI OLMSTEAD III DO Jul 14, 2021 12:38
[2021-07-15] VITALS (24 sets, daily range): BP systolic 100–139; BP diastolic 55–73
[2021-07-15] MEDS: PROPOFOL 100 ML IV PRN ×9 (01:49→21:52)
[2021-07-15] MEDS: DEXMEDETOMIDINE 400 MCG in IV NORMAL SALINE 100ML 96 ML IV PRN ×9 (02:56→22:47)
[2021-07-15] MEDS: NORCURON - VECURONIUM 50 MG in IV NORMAL SALINE 50ML 50 ML IV PRN ×6 (02:57→22:07)
[2021-07-15] MEDS: MEROPENEM 1 GM in IV NORMAL SALINE 100ML 100 ML IV SCH ×3 (05:43→21:07)
[2021-07-15] MEDS: INSULIN LISPRO 300 UNITS/3 ML VIAL. SQ SCH ×3 (05:43→18:00)
[2021-07-15 06:31] LABS: BASO # 0.2 x10^3/uL (0.0-0.2); BASO % 1 % (0-3); EOS # 0.3 x10^3/uL (0.0-0.7); EOS % 2 % (0-3); HEMATOCRIT 24.8 % (36.0-47.0); HEMOGLOBIN 8.3 g/dL (12.0-15.5); LYMPH # 2.1 x10^3/uL (1.0-4.8); LYMPH % 15 % (24-48); MEAN CORPUSCULAR HEMOGLOBIN 26 pg (25-35); MEAN CORPUSCULAR HGB CONC 33 g/dL (31-37); MEAN CORPUSCULAR VOLUME 78 fL (79-100); MONO # 0.5 x10^3/uL (0.0-1.1); MONO % 3 % (0-9); NEUT # 10.9 x10^3/uL (1.8-7.7); NEUT % 78 % (31-73); PLATELET COUNT 472 x10^3/uL (140-400); RED BLOOD COUNT 3.17 x10^6/uL (3.50-5.40); RED CELL DISTRIBUTION WIDTH 21.2 % (11.5-14.5)
[2021-07-15 06:47] LABS: CREATININE 0.4 mg/dL (0.6-1.0); GFR 176.8; POTASSIUM 3.7 mmol/L (3.5-5.1)
[2021-07-15 06:50] LABS: CALCIUM 7.5 mg/dL (8.5-10.1)
[2021-07-15] MEDS: THIAMINE 100 MG TABLET. PO SCH (08:07)
[2021-07-15] MEDS: ENOXAPARIN 40 MG/0.4 ML SYRINGE. SQ SCH ×2 (08:07→21:05)
[2021-07-15] MEDS: FUROSEMIDE 40 MG/4 ML VIAL. IVP SCH (08:07)
[2021-07-15] MEDS: ACETAMINOPHEN 325 MG TABLET. PO PRN (08:07)
[2021-07-15] MEDS: ZINC SULFATE 220 MG CAPSULE. PO SCH (08:07)
[2021-07-15] MEDS: GABAPENTIN 300 MG CAPSULE. PO SCH (08:07)
[2021-07-15] MEDS: PANTOPRAZOLE IV PUSH 40 MG VIAL. IVP SCH (08:07)
[2021-07-15] MEDS: ASCORBIC ACID 1,000 MG TABLET PO SCH (08:10)
[2021-07-15] MEDS: LISINOPRIL 5 MG TABLET. PO SCH (08:10)
[2021-07-15] MEDS: INSULIN GLARGINE SYRINGE. SQ SCH ×2 (09:16→21:06)
--- NOTE | 2021-07-15 09:34 | PDOC ---
PULMONARY PROGRESS NOTES DATE: 07/15/21 TIME: 09:32 Subjective Remains on vent support 100% and PEEP of 12 Oxygen saturation remained in the high 80s. afebrile Vitals Vital Signs Date Time Temp Pulse Resp B/P (MAP) Pulse Ox O2 Delivery O2 Flow Rate FiO2 07/15/21 08:10 90 108/59 07/15/21 07:32 86 Ventilator 07/15/21 06:00 20 07/15/21 04:00 99.6 99.6 Comments ros unable to obtain on vent sedated Lungs: Crackles Cardiovascular: S1 Abdomen: Soft Extremities: No Edema Skin: Warm Labs Laboratory Tests Test 07/13/21 14:00 07/13/21 17:52 07/14/21 00:07 07/14/21 06:25 Glucose (Fingerstick) 134 mg/dL (70-99) 126 mg/dL (70-99) 135 mg/dL (70-99) White Blood Count 15.3 x10^3/uL (4.0-11.0) Red Blood Count 3.14 x10^6/uL (3.50-5.40) Hemoglobin 7.8 g/dL (12.0-15.5) Hematocrit 24.6 % (36.0-47.0) Mean Corpuscular Volume 78 fL (79-100) Mean Corpuscular Hemoglobin 25 pg (25-35) Mean Corpuscular Hemoglobin Concent 32 g/dL (31-37) Red Cell Distribution Width 20.9 % (11.5-14.5) Platelet Count 462 x10^3/uL (140-400) Neutrophils (%) (Auto) 82 % (31-73) Lymphocytes (%) (Auto) 10 % (24-48) Monocytes (%) (Auto) 3 % (0-9) Eosinophils (%) (Auto) 3 % (0-3) Basophils (%) (Auto) 2 % (0-3) Neutrophils # (Auto) 12.5 x10^3/uL (1.8-7.7) Lymphocytes # (Auto) 1.6 x10^3/uL (1.0-4.8) Monocytes # (Auto) 0.5 x10^3/uL (0.0-1.1) Eosinophils # (Auto) 0.4 x10^3/uL (0.0-0.7) Basophils # (Auto) 0.3 x10^3/uL (0.0-0.2) Sodium Level 141 mmol/L (136-145) Potassium Level 3.3 mmol/L (3.5-5.1) Chloride Level 102 mmol/L (98-107) Carbon Dioxide Level 39 mmol/L (21-32) Anion Gap 0 (6-14) Blood Urea Nitrogen 9 mg/dL (7-20) Creatinine 0.3 mg/dL (0.6-1.0) Estimated GFR (Cockcroft-Gault) 246.4 Glucose Level 138 mg/dL (70-99) Calcium Level 8.2 mg/dL (8.5-10.1) Test 07/14/21 06:38 07/14/21 11:33 07/14/21 17:15 07/14/21 23:49 Glucose (Fingerstick) 136 mg/dL (70-99) 160 mg/dL (70-99) 147 mg/dL (70-99) 142 mg/dL (70-99) Test 07/15/21 05:40 White Blood Count 14.0 x10^3/uL (4.0-11.0) Red Blood Count 3.17 x10^6/uL (3.50-5.40) Hemoglobin 8.3 g/dL (12.0-15.5) Hematocrit 24.8 % (36.0-47.0) Mean Corpuscular Volume 78 fL (79-100) Mean Corpuscular Hemoglobin 26 pg (25-35) Mean Corpuscular Hemoglobin Concent 33 g/dL (31-37) Red Cell Distribution Width 21.2 % (11.5-14.5) Platelet Count 472 x10^3/uL (140-400) Neutrophils (%) (Auto) 78 % (31-73) Lymphocytes (%) (Auto) 15 % (24-48) Monocytes (%) (Auto) 3 % (0-9) Eosinophils (%) (Auto) 2 % (0-3) Basophils (%) (Auto) 1 % (0-3) Neutrophils # (Auto) 10.9 x10^3/uL (1.8-7.7) Lymphocytes # (Auto) 2.1 x10^3/uL (1.0-4.8) Monocytes # (Auto) 0.5 x10^3/uL (0.0-1.1) Eosinophils # (Auto) 0.3 x10^3/uL (0.0-0.7) Basophils # (Auto) 0.2 x10^3/uL (0.0-0.2) Sodium Level 138 mmol/L (136-145) Potassium Level 3.7 mmol/L (3.5-5.1) Chloride Level 99 mmol/L (98-107) Carbon Dioxide Level 38 mmol/L (21-32) Anion Gap 1 (6-14) Blood Urea Nitrogen 7 mg/dL (7-20) Creatinine 0.4 mg/dL (0.6-1.0) Estimated GFR (Cockcroft-Gault) 176.8 Glucose Level 161 mg/dL (70-99) Glucose (Fingerstick) 145 mg/dL (70-99) Calcium Level 7.5 mg/dL (8.5-10.1) Magnesium Level 1.6 mg/dL (1.8-2.4) Laboratory Tests Test 07/14/21 11:33 07/14/21 17:15 07/14/21 23:49 07/15/21 05:40 Glucose (Fingerstick) 160 mg/dL (70-99) 147 mg/dL (70-99) 142 mg/dL (70-99) 145 mg/dL (70-99) White Blood Count 14.0 x10^3/uL (4.0-11.0) Red Blood Count 3.17 x10^6/uL (3.50-5.40) Hemoglobin 8.3 g/dL (12.0-15.5) Hematocrit 24.8 % (36.0-47.0) Mean Corpuscular Volume 78 fL (79-100) Mean Corpuscular Hemoglobin 26 pg (25-35) Mean Corpuscular Hemoglobin Concent 33 g/dL (31-37) Red Cell Distribution Width 21.2 % (11.5-14.5) Platelet Count 472 x10^3/uL (140-400) Neutrophils (%) (Auto) 78 % (31-73) Lymphocytes (%) (Auto) 15 % (24-48) Monocytes (%) (Auto) 3 % (0-9) Eosinophils (%) (Auto) 2 % (0-3) Basophils (%) (Auto) 1 % (0-3) Neutrophils # (Auto) 10.9 x10^3/uL (1.8-7.7) Lymphocytes # (Auto) 2.1 x10^3/uL (1.0-4.8) Monocytes # (Auto) 0.5 x10^3/uL (0.0-1.1) Eosinophils # (Auto) 0.3 x10^3/uL (0.0-0.7) Basophils # (Auto) 0.2 x10^3/uL (0.0-0.2) Sodium Level 138 mmol/L (136-145) Potassium Level 3.7 mmol/L (3.5-5.1) Chloride Level 99 mmol/L (98-107) Carbon Dioxide Level 38 mmol/L (21-32) Anion Gap 1 (6-14) Blood Urea Nitrogen 7 mg/dL (7-20) Creatinine 0.4 mg/dL (0.6-1.0) Estimated GFR (Cockcroft-Gault) 176.8 Glucose Level 161 mg/dL (70-99) Calcium Level 7.5 mg/dL (8.5-10.1) Magnesium Level 1.6 mg/dL (1.8-2.4) Medications Active Scripts Medications Dose Route/Sig Max Daily Dose Days Date Category Cyclobenzaprine Hcl 10 Mg Tablet 10 Mg PO TID 06/15/21 Reported Meloxicam 15 Mg Tablet 15 Mg PO DAILY 06/15/21 Reported Fluticasone Propionate Nasal [place] (Fluticasone Propionate) 16 Gm [place].susp 1 [place] NS DAILY 06/15/21 Reported Loratadine 10 Mg Tablet 10 Mg PO DAILY 06/15/21 Reported Furosemide 20 Mg Tablet 20 Mg PO DAILY 06/15/21 Reported Gabapentin (Gabapentin) 300 Mg Capsule 300 Mg PO TID 06/15/21 Reported Gabapentin (Gabapentin) 300 Mg Capsule 300 Mg PO TID 06/15/21 Reported Lisinopril 5 Mg Tablet 1 Tab PO DAILY 06/15/21 Reported Metformin Hcl 500 Mg Tablet 500 Mg PO BIDWMEALS 06/15/21 Reported Ozempic (Semaglutide) 0.25 Mg/0.2 Ml Pen.injctr 0.25 Mg SQ WEEKLY 06/15/21 Reported Comments CXR 07/14/21 IMPRESSION: Diffuse pulmonary opacities bilaterally without interval improvement. Impression . 1. Acute hypoxic respiratory failure secondary to ARDS/COVID-19 infection, worsening intubated 06/19/21. 2. Ab[address] CT of chest secondary to COVID-19 infection/ARDS 3. Diabetes type 2 with hyperglycemia 4. Hypotension, secondary to sepsis--resolved 5. Hyperlipdemia 6. Obesity 7. sepsis with Proteus mirabilis bacteremia and pneumonia 8. Proteus mirabilis in the sputum. 9 staph in the blood, no new positive cultures. Plan . Updated 07/15/21 Continue current vent support, currently PC mode and 100% and PEEP of 12 Would not escalate PEEP any further. Continue ABX per ID Follow CXR/ ABG --as needed. PT. is now a DNR DVT/GI PPX D/W RN and RT Very poor prognosis, likely not to survive Updated 07/14/21 Continue current vent support, currently PC mode and 100% and PEEP of 12 Continue ABX per ID Follow CXR/ ABG -- no changes today PT. is now a DNR DVT/GI PPX D/W RN and RT Very poor prognosis likely not to survive Updated 07/13 Continue current support Antibiotics per ID No significant improvement this past week Case discussed with family several days ago Family informed that patient may not survive Replace potassium Chest x-ray from 07/12 was reviewed 07/12 Continue current support Antibiotics per ID Long-term prognosis is poor NICOLETTE MORALES MD Jul 15, 2021 09:34
[2021-07-15] MEDS: MICAFUNGIN 100 MG in IV DEXTROSE 5% 100ML 100 ML IV SCH (09:44)
[2021-07-15] MEDS: MIDAZOLAM 100mg/100ml NS BAG 100 ML IV PRN ×3 (10:43→21:42)
--- NOTE | 2021-07-15 10:56 | PDOC ---
[employer] PROGRESS NOTE Date of Service DOS: DATE: 07/15/21 TIME: 10:52 Chief Complaint Chief Complaint Acute hypoxic respiratory failure requiring BiPAP and subsequent intubation - due to COVID 19 with ARDS COVID-19 pneumonia Morbid obesity History of diabetes mellitus type 2 History of hypertension Severe malnutrition Septic shock Gram negative bacteremia - proteus History of Present Illness History of Present Illness 07/15/2021 Patient seen and examined in the ICU She remains on the vent Pressure control of 40 with 100% FiO2 and 12 of PEEP rate of 20 OG feeds at 40 cc an hour Has rectal bag Mccall to bedside drainage She has SCDs on Sedated with propofol Precedex fentanyl Versed Also on IV vecuronium Has IV microfungi and hanging Discussed with RN Chart reviewed She remains extremely critically ill 07/14/2021 Patient seen and examined in the ICU She remains mechanically ventilated Pressure control with 40/1% FiO2 and 12 of PEEP and a rate of 20 Discussed with RN Chart reviewed Mccall bedside drainage Rectal bag in place She is still very critically ill 07/13/2021 patient seen and examined in the ICU she is still on the vent volume control of 40 with 100% FiO2 a rate of 20 and 12 of PEEP sedated with Precedex fentanyl and Versed has Mccall to bedside drainage rectal bag in place chart reviewed discussed with RN she remains extremely critically ill 07/12/2021 Patient seen and examined in the ICU Chart reviewed Discussed with RN Patient's white count has bumped up to 28,000 Currently on pressure support with 40 cm/h2o 100% FiO2 12 of PEEP and satting 81% She remains critically ill Ms Pierce is a transfer from [facility] in [facility], 40-year-old female with past medical history of diabetes, hypertension, dyslipidemia and morbid obesity who complains of shortness of breath 1 week ago and went to urgent care and found out that she was positive for Covid. She came in at 5:00 in the morning at [facility] is very hypoxic and was found to be her oxygen saturation was 68% she was put on a nonrebreather 15 L and she was improved to 90 to 93%. Patient is [id number]. Patient is a poor historian. She does not know what kind of medication she takes for her medical history. 06/15: In the ICU. She was face time talking with family members. She was still on nonrebreather. Pulmonary consulted. 06/16: On Vapotherm. No major complaints. 06/17: Remains on Vapotherm although O2 requirement decreasing. Continue current plan. 06/18: On 40 L Vapotherm and now requiring NRB in addition. Afebrile and on broad-spectrum antibiotics. Remdesivir finishes today. 06/19: Intubated overnight in ICU. Afebrile. Currently breathing FiO2 100%. Completed remdesivir. We will continue IV steroids and antibiotics. 06/20: Low-grade fever overnight (T-max 99.7 F). Remains on vent, FiO2 90%, PEEP 10. Continue treatment with IV steroids and antibiotics. 06/21: Afebrile. On vent with FiO2 80%, PEEP 10. Cont treatment with antibiotics steroids total of 10 day course (steroid taper to begin 06/24). 06/22: Afebrile. Remains on ventilator with FiO2 70%, PEEP 10. Completed remdesivir. Continue antibiotics, steroids with slow taper. 06/23: Afebrile. On vent with FiO2 of 70, PEEP 10. Continue antibiotics for diffuse bilateral opacities. Continue steroids with slow taper 06/24: Afebrile. On vent with FiO2 60%, PEEP 9. Continue antibiotics. Today is day 10 of steroids; will begin Solu-Medrol taper tomorrow. 06/25: On vent with FiO2 65, PEEP 9. Afebrile. Completed 10 days of steroids; will begin Solu-Medrol taper today at 60 mg twice daily. 06/26: Intubated and sedated vent at 20/450/70/9. Insulin dose to 10 units twice daily. Solu-Medrol decreased to 40 mg daily. Cont with IV Lasix 06/27: Intubated and sedated. Vent settings at assist control at saturating 97%. Vent settings set at 16/80/9. ABG at 7.4 /58/32. 06/28: No acute events overnight. Patient continues to be intubated and sedated. Saturating 90% on assist control with vent settings of 16/80/9. 06/29: No acute events overnight patient saturating 98% on vent settings of 10/8 0/9. 06/30: Patient did have hypotensive episode during the day which required a 500 NS bolus. Possibly needing vasopressors. pressure support/80/9. 07/01: No acute events overnight. Patient saturating 99% on vent settings of 14 pressure support/80/9. Urine output of 3.6 L in the last 24 hours. 07/02: Paralyzed for vent dysynchrony. Saturating 100% on 70/9. Fever of 101.1 this morning. 07/03: Febrile 101.1 F. 70% FiO2 and 9 PEEP. Still requiring vecuronium for vent dyssynchrony. ID consulted for sepsis, ?VAP 07/04: T-max 102.6 F last 24 hours, afebrile overnight. Peripheral culture and culture from PICC and sputum and urine culture obtained. Now on meropenem and Zyvox. More hypoxic, ABG 7.4 /48, requiring FiO2 90% PEEP of 9 07/05: Afebrile. ABG 7.3/66/60, FiO2 100% PEEP of 12. Sputum and blood cx proteus mirabilis. Urine with some yeast. Daughter bedside this morning noted she is thinking of withdrawing care. D/w patient's sister and nephew bedside patient has been aggressively cared for cont current care. 07/06: Afebrile overnight. Sedated on ventilator FiO2 100% PEEP 12, O2 saturation 90% on pulse oximetry, still requiring vecuronium for vent dyssynchrony. Labs pending. 07/07: Afebrile. Hb 9.4, ABG 2.97/65.8/54.7. Peak pressures over 50s pressure control currently paralyzed. Lasix on hold received albumin. Still requiring Levophed. CT abdomen pelvis pending. 07/08: Febrile to 100.6 F overnight. Vecuronium wean attempted and significantly dyssynchrony. Still requiring Levophed support. FiO2 100% 12 peak pressures in the 50s. Afebrile overnight. More hypoxic overnight, I:E ratio 2-1, paralyzed on vecuronium for dyssynchrony. FiO2 100% PEEP 12. WBC 10, Hb 8.1, platelets 314. Met with daughter, Lala, bedside and sister over the phone the continued decline and grim prognosis and they have requested DNR. 07/10/2021: Patient seen and examined in ICU. On pressure control of 40 with a rate of 20, 100% FiO2, and a PEEP of 12. SCD for DVT prophylaxis. Mccall to BSD. Rectal bag present. OG set at 40cc per hour. Sedated with fentanyl, propofol, and versed. On vecuronium drip. Triple lumen PICC line present on right arm. O2 saturation is still only 79%. Chest x-ray today showed stable life support devices and stable diffuse bilateral opacities. Discussed with RN. Chart reviewed. 07/11/2021 Patient seen and examined in the ICU He is still mechanically ventilated On pressure control with 100% FiO2 Mccall to BSD Rectal bag still present Sedated with propofol fentanyl and Versed Also has as needed vecuronium Her daughter is present I reviewed the case with her daughter extensively Chart reviewed Discussed with RN Patient is still critically ill Vitals/I&O Vitals/I&O: Vital Signs Date Time Temp Pulse Resp B/P (MAP) Pulse Ox O2 Delivery O2 Flow Rate FiO2 07/15/21 10:00 96 120/65 (83) 88 Ventilator 07/15/21 09:00 20 07/15/21 08:00 99.9 99.9 I & O 07/14/21 07/14/21 07/15/21 14:59 22:59 06:59 Intake Total 1040 ml 3429 ml 616 ml Output Total 2900 ml 725 ml 625 ml Balance -1860 ml 2704 ml -9 ml Physical Exam Physical Exam: GENERAL: Sedated, orally intubated female, not in distress. VITAL SIGNS: Stable. HEENT: Both pupils are round and reacting. No conjunctival lesion. Mouth cannot be visualized, has orally intubated. NECK: Supple, no JVP, no lymphadenopathy. LUNGS: Clear. HEART: S1, S2 regular. ABDOMEN: Soft, nontender, no organomegaly. EXTREMITIES: No edema, cyanosis. SKIN: Unremarkable. NEUROLOGIC: The patient is sedated, intubated, neurologically unable to assess. General: No acute distress, Other (Intubated and sedated) Heart: Regular rate, Normal S1, Normal S2 Lungs: Crackles Abdomen: Normal bowel sounds, Soft Extremities: No clubbing, No edema, Normal pulses Skin: No rashes, No significant lesion Labs Labs: Laboratory Tests Test 07/14/21 11:33 07/14/21 17:15 07/14/21 23:49 07/15/21 05:40 Glucose (Fingerstick) 160 mg/dL (70-99) 147 mg/dL (70-99) 142 mg/dL (70-99) 145 mg/dL (70-99) White Blood Count 14.0 x10^3/uL (4.0-11.0) Red Blood Count 3.17 x10^6/uL (3.50-5.40) Hemoglobin 8.3 g/dL (12.0-15.5) Hematocrit 24.8 % (36.0-47.0) Mean Corpuscular Volume 78 fL (79-100) Mean Corpuscular Hemoglobin 26 pg (25-35) Mean Corpuscular Hemoglobin Concent 33 g/dL (31-37) Red Cell Distribution Width 21.2 % (11.5-14.5) Platelet Count 472 x10^3/uL (140-400) Neutrophils (%) (Auto) 78 % (31-73) Lymphocytes (%) (Auto) 15 % (24-48) Monocytes (%) (Auto) 3 % (0-9) Eosinophils (%) (Auto) 2 % (0-3) Basophils (%) (Auto) 1 % (0-3) Neutrophils # (Auto) 10.9 x10^3/uL (1.8-7.7) Lymphocytes # (Auto) 2.1 x10^3/uL (1.0-4.8) Monocytes # (Auto) 0.5 x10^3/uL (0.0-1.1) Eosinophils # (Auto) 0.3 x10^3/uL (0.0-0.7) Basophils # (Auto) 0.2 x10^3/uL (0.0-0.2) Sodium Level 138 mmol/L (136-145) Potassium Level 3.7 mmol/L (3.5-5.1) Chloride Level 99 mmol/L (98-107) Carbon Dioxide Level 38 mmol/L (21-32) Anion Gap 1 (6-14) Blood Urea Nitrogen 7 mg/dL (7-20) Creatinine 0.4 mg/dL (0.6-1.0) Estimated GFR (Cockcroft-Gault) 176.8 Glucose Level 161 mg/dL (70-99) Calcium Level 7.5 mg/dL (8.5-10.1) Magnesium Level 1.6 mg/dL (1.8-2.4) Assessment and Plan Assessmemt and Plan Acute hypoxic respiratory failure requiring BiPAP and subsequent intubation - due to COVID 19 with ARDS COVID-19 pneumonia Morbid obesity History of diabetes mellitus type 2 History of hypertension Severe malnutrition Septic shock Gram negative bacteremia - proteus Plan: 1) Continue ICU monitoring 2) Vent weaning 3) Continue IV sedation with dexmedetomidine, fentanyl, and versed. 4) Continue IV vecuronium 5) Appreciate subspecialty consult: 6) SCD for DVT prophylaxis 7) DNR 8) Prognosis guarded at best (I am concerned she may not survive ) Will cont to trend labs CC time 32 minutes Comment Review of Relevant I have reviewed the following items man (where applicable) has been applied. Justifications for Admission Other Justification Acute hypoxic respiratory failure and Covid pneumonia HUI OLMSTEAD III DO Jul 15, 2021 10:56
[2021-07-15] MEDS: fentaNYL HIGH DOSE PCA 55 ML IV PRN ×2 (12:05→13:26)
--- NOTE | 2021-07-15 15:03 | PDOC ---
Infectious Disease Note Subjective Subjective Intubated/ sedated T-max 99.9 FiO2 100% PEEP of 12 ROS ROS no n/v/d/ Vital Sign Vital Signs Vital Signs Date Time Temp Pulse Resp B/P (MAP) Pulse Ox O2 Delivery O2 Flow Rate FiO2 07/15/21 14:30 94 40.0 07/15/21 14:00 86 105/59 (74) 07/15/21 13:00 20 Ventilator 07/15/21 12:00 99.6 99.6 Physical Exam PHYSICAL EXAM GENERAL: Sedated, orally intubated female, not in distress. HEENT: Both pupils are round and reacting. No conjunctival lesion. Mouth cannot be visualized, has orally intubated. NECK: Supple, no JVP, no lymphadenopathy. LUNGS: Clear. HEART: S1, S2 regular. ABDOMEN: Soft, nontender, no organomegaly. EXTREMITIES: No edema, cyanosis. SKIN: Unremarkable. NEUROLOGIC: The patient is sedated, intubated, neurologically unable to assess. Labs Lab Laboratory Tests Test 07/14/21 17:15 07/14/21 23:49 07/15/21 05:40 07/15/21 12:18 Glucose (Fingerstick) 147 mg/dL (70-99) 142 mg/dL (70-99) 145 mg/dL (70-99) 145 mg/dL (70-99) White Blood Count 14.0 x10^3/uL (4.0-11.0) Red Blood Count 3.17 x10^6/uL (3.50-5.40) Hemoglobin 8.3 g/dL (12.0-15.5) Hematocrit 24.8 % (36.0-47.0) Mean Corpuscular Volume 78 fL (79-100) Mean Corpuscular Hemoglobin 26 pg (25-35) Mean Corpuscular Hemoglobin Concent 33 g/dL (31-37) Red Cell Distribution Width 21.2 % (11.5-14.5) Platelet Count 472 x10^3/uL (140-400) Neutrophils (%) (Auto) 78 % (31-73) Lymphocytes (%) (Auto) 15 % (24-48) Monocytes (%) (Auto) 3 % (0-9) Eosinophils (%) (Auto) 2 % (0-3) Basophils (%) (Auto) 1 % (0-3) Neutrophils # (Auto) 10.9 x10^3/uL (1.8-7.7) Lymphocytes # (Auto) 2.1 x10^3/uL (1.0-4.8) Monocytes # (Auto) 0.5 x10^3/uL (0.0-1.1) Eosinophils # (Auto) 0.3 x10^3/uL (0.0-0.7) Basophils # (Auto) 0.2 x10^3/uL (0.0-0.2) Sodium Level 138 mmol/L (136-145) Potassium Level 3.7 mmol/L (3.5-5.1) Chloride Level 99 mmol/L (98-107) Carbon Dioxide Level 38 mmol/L (21-32) Anion Gap 1 (6-14) Blood Urea Nitrogen 7 mg/dL (7-20) Creatinine 0.4 mg/dL (0.6-1.0) Estimated GFR (Cockcroft-Gault) 176.8 Glucose Level 161 mg/dL (70-99) Calcium Level 7.5 mg/dL (8.5-10.1) Magnesium Level 1.6 mg/dL (1.8-2.4) Micro Recent blood cultures negative Sputum culture is negative Objective Assessment 1. Fever 2. COVID-19 infection. 3. Pulmonary infiltrates. 4. Respiratory failure. 5. Leukocytosis. 6. Morbid obesity. 7 G neg camilo bacteremia Proteus 8. Urine culture 07/04 and 07/12 C albicans Plan Plan of Care Cont Merrem ,Zyvox and micafungin supportive care CT abd and pelvis unable to do Now DNR Prognosis poor ROBERTO HADDAD MD Jul 15, 2021 15:03
[2021-07-16] VITALS (24 sets, daily range): BP systolic 99–127; BP diastolic 56–68
[2021-07-16] MEDS: PROPOFOL 100 ML IV PRN ×9 (00:31→21:51)
[2021-07-16] MEDS: DEXMEDETOMIDINE 400 MCG in IV NORMAL SALINE 100ML 96 ML IV PRN ×8 (02:01→23:22)
[2021-07-16] MEDS: NORCURON - VECURONIUM 50 MG in IV NORMAL SALINE 50ML 50 ML IV PRN ×5 (02:01→20:05)
[2021-07-16] MEDS: MEROPENEM 1 GM in IV NORMAL SALINE 100ML 100 ML IV SCH ×3 (05:52→21:50)
[2021-07-16 05:58] LABS: BASO # 0.1 x10^3/uL (0.0-0.2); BASO % 1 % (0-3); CREATININE 0.3 mg/dL (0.6-1.0); EOS # 0.3 x10^3/uL (0.0-0.7); EOS % 2 % (0-3); GFR 246.4; HEMATOCRIT 25.3 % (36.0-47.0); HEMOGLOBIN 8.3 g/dL (12.0-15.5); LYMPH % 14 % (24-48); MEAN CORPUSCULAR HEMOGLOBIN 26 pg (25-35); MEAN CORPUSCULAR HGB CONC 33 g/dL (31-37); MEAN CORPUSCULAR VOLUME 79 fL (79-100); MONO # 0.7 x10^3/uL (0.0-1.1); MONO % 5 % (0-9); NEUT # 11.8 x10^3/uL (1.8-7.7); NEUT % 79 % (31-73); PLATELET COUNT 542 x10^3/uL (140-400); POTASSIUM 3.4 mmol/L (3.5-5.1); RED BLOOD COUNT 3.23 x10^6/uL (3.50-5.40); RED CELL DISTRIBUTION WIDTH 21.6 % (11.5-14.5); WHITE BLOOD COUNT 14.9 x10^3/uL (4.0-11.0)
[2021-07-16 05:59] LABS: CALCIUM 8.3 mg/dL (8.5-10.1)
[2021-07-16] MEDS: INSULIN LISPRO 300 UNITS/3 ML VIAL. SQ SCH ×5 (06:50→23:21)
[2021-07-16] MEDS: ENOXAPARIN 40 MG/0.4 ML SYRINGE. SQ SCH ×2 (07:59→20:03)
[2021-07-16] MEDS: ASCORBIC ACID 1,000 MG TABLET PO SCH (07:59)
[2021-07-16] MEDS ORDERED: MAGNESIUM SULFATE 4GM 100 ML IV ONE (08:00)
[2021-07-16] MEDS ORDERED: POTASSIUM BICARB 20 MEQ EFFERVESCENT TABLET. FT ONE (08:00)
[2021-07-16] MEDS: INSULIN GLARGINE SYRINGE. SQ SCH ×2 (08:00→20:04)
[2021-07-16] MEDS: PANTOPRAZOLE IV PUSH 40 MG VIAL. IVP SCH (08:02)
[2021-07-16] MEDS: THIAMINE 100 MG TABLET. PO SCH (08:02)
[2021-07-16] MEDS: ZINC SULFATE 220 MG CAPSULE. PO SCH (08:02)
[2021-07-16] MEDS: FUROSEMIDE 40 MG/4 ML VIAL. IVP SCH (08:03)
[2021-07-16] MEDS: MICAFUNGIN 100 MG in IV DEXTROSE 5% 100ML 100 ML IV SCH (08:04)
[2021-07-16] MEDS: LISINOPRIL 5 MG TABLET. PO SCH (09:00)
--- NOTE | 2021-07-16 11:18 | PDOC ---
Infectious Disease Note Subjective Subjective Intubated/ sedated T-max 99.9 FiO2 100% PEEP of 12 ROS ROS No nausea vomiting Vital Sign Vital Signs Vital Signs Date Time Temp Pulse Resp B/P (MAP) Pulse Ox O2 Delivery O2 Flow Rate FiO2 07/16/21 09:00 94 20 122/68 (86) 89 Ventilator 07/16/21 08:00 99.4 99.4 07/15/21 14:30 40.0 Physical Exam PHYSICAL EXAM GENERAL: Sedated, orally intubated female, not in distress. HEENT: Both pupils are round and reacting. No conjunctival lesion. Mouth cannot be visualized, has orally intubated. NECK: Supple, no JVP, no lymphadenopathy. LUNGS: Clear. HEART: S1, S2 regular. ABDOMEN: Soft, nontender, no organomegaly. EXTREMITIES: No edema, cyanosis. SKIN: Unremarkable. NEUROLOGIC: The patient is sedated, intubated, neurologically unable to assess. Labs Lab Laboratory Tests Test 07/15/21 12:18 07/15/21 23:31 07/16/21 05:05 Glucose (Fingerstick) 145 mg/dL (70-99) 143 mg/dL (70-99) White Blood Count 14.9 x10^3/uL (4.0-11.0) Red Blood Count 3.23 x10^6/uL (3.50-5.40) Hemoglobin 8.3 g/dL (12.0-15.5) Hematocrit 25.3 % (36.0-47.0) Mean Corpuscular Volume 79 fL (79-100) Mean Corpuscular Hemoglobin 26 pg (25-35) Mean Corpuscular Hemoglobin Concent 33 g/dL (31-37) Red Cell Distribution Width 21.6 % (11.5-14.5) Platelet Count 542 x10^3/uL (140-400) Neutrophils (%) (Auto) 79 % (31-73) Lymphocytes (%) (Auto) 14 % (24-48) Monocytes (%) (Auto) 5 % (0-9) Eosinophils (%) (Auto) 2 % (0-3) Basophils (%) (Auto) 1 % (0-3) Neutrophils # (Auto) 11.8 x10^3/uL (1.8-7.7) Lymphocytes # (Auto) 2.0 x10^3/uL (1.0-4.8) Monocytes # (Auto) 0.7 x10^3/uL (0.0-1.1) Eosinophils # (Auto) 0.3 x10^3/uL (0.0-0.7) Basophils # (Auto) 0.1 x10^3/uL (0.0-0.2) Sodium Level 142 mmol/L (136-145) Potassium Level 3.4 mmol/L (3.5-5.1) Chloride Level 102 mmol/L (98-107) Carbon Dioxide Level 38 mmol/L (21-32) Anion Gap 2 (6-14) Blood Urea Nitrogen 6 mg/dL (7-20) Creatinine 0.3 mg/dL (0.6-1.0) Estimated GFR (Cockcroft-Gault) 246.4 Glucose Level 157 mg/dL (70-99) Calcium Level 8.3 mg/dL (8.5-10.1) Micro Recent blood cultures negative Sputum culture is negative Objective Assessment 1. Fever 2. COVID-19 infection. 3. Pulmonary infiltrates. 4. Respiratory failure. 5. Leukocytosis. 6. Morbid obesity. 7 G neg camilo bacteremia Proteus 8. Urine culture 07/04 and 07/12 C albicans Plan Plan of Care Cont Merrem ,Zyvox and micafungin supportive care CT abd and pelvis unable to do Now DNR Prognosis poor ROBERTO HADDAD MD Jul 16, 2021 11:18
--- NOTE | 2021-07-16 11:25 | PDOC ---
PULMONARY PROGRESS NOTES DATE: 07/16/21 TIME: 11:24 Subjective Remains on vent support 100% and PEEP of 12 Oxygen saturation remained in the high 80s. afebrile Vitals Vital Signs Date Time Temp Pulse Resp B/P (MAP) Pulse Ox O2 Delivery O2 Flow Rate FiO2 07/16/21 09:00 94 20 122/68 (86) 89 Ventilator 07/16/21 08:00 99.4 99.4 07/15/21 14:30 40.0 Comments ros unable to obtain on vent sedated Lungs: Crackles Cardiovascular: S1 Abdomen: Soft Extremities: No Edema Skin: Warm Labs Laboratory Tests Test 07/14/21 11:33 07/14/21 17:15 07/14/21 23:49 07/15/21 05:40 Glucose (Fingerstick) 160 mg/dL (70-99) 147 mg/dL (70-99) 142 mg/dL (70-99) 145 mg/dL (70-99) White Blood Count 14.0 x10^3/uL (4.0-11.0) Red Blood Count 3.17 x10^6/uL (3.50-5.40) Hemoglobin 8.3 g/dL (12.0-15.5) Hematocrit 24.8 % (36.0-47.0) Mean Corpuscular Volume 78 fL (79-100) Mean Corpuscular Hemoglobin 26 pg (25-35) Mean Corpuscular Hemoglobin Concent 33 g/dL (31-37) Red Cell Distribution Width 21.2 % (11.5-14.5) Platelet Count 472 x10^3/uL (140-400) Neutrophils (%) (Auto) 78 % (31-73) Lymphocytes (%) (Auto) 15 % (24-48) Monocytes (%) (Auto) 3 % (0-9) Eosinophils (%) (Auto) 2 % (0-3) Basophils (%) (Auto) 1 % (0-3) Neutrophils # (Auto) 10.9 x10^3/uL (1.8-7.7) Lymphocytes # (Auto) 2.1 x10^3/uL (1.0-4.8) Monocytes # (Auto) 0.5 x10^3/uL (0.0-1.1) Eosinophils # (Auto) 0.3 x10^3/uL (0.0-0.7) Basophils # (Auto) 0.2 x10^3/uL (0.0-0.2) Sodium Level 138 mmol/L (136-145) Potassium Level 3.7 mmol/L (3.5-5.1) Chloride Level 99 mmol/L (98-107) Carbon Dioxide Level 38 mmol/L (21-32) Anion Gap 1 (6-14) Blood Urea Nitrogen 7 mg/dL (7-20) Creatinine 0.4 mg/dL (0.6-1.0) Estimated GFR (Cockcroft-Gault) 176.8 Glucose Level 161 mg/dL (70-99) Calcium Level 7.5 mg/dL (8.5-10.1) Magnesium Level 1.6 mg/dL (1.8-2.4) Test 07/15/21 12:18 07/15/21 23:31 07/16/21 05:05 Glucose (Fingerstick) 145 mg/dL (70-99) 143 mg/dL (70-99) White Blood Count 14.9 x10^3/uL (4.0-11.0) Red Blood Count 3.23 x10^6/uL (3.50-5.40) Hemoglobin 8.3 g/dL (12.0-15.5) Hematocrit 25.3 % (36.0-47.0) Mean Corpuscular Volume 79 fL (79-100) Mean Corpuscular Hemoglobin 26 pg (25-35) Mean Corpuscular Hemoglobin Concent 33 g/dL (31-37) Red Cell Distribution Width 21.6 % (11.5-14.5) Platelet Count 542 x10^3/uL (140-400) Neutrophils (%) (Auto) 79 % (31-73) Lymphocytes (%) (Auto) 14 % (24-48) Monocytes (%) (Auto) 5 % (0-9) Eosinophils (%) (Auto) 2 % (0-3) Basophils (%) (Auto) 1 % (0-3) Neutrophils # (Auto) 11.8 x10^3/uL (1.8-7.7) Lymphocytes # (Auto) 2.0 x10^3/uL (1.0-4.8) Monocytes # (Auto) 0.7 x10^3/uL (0.0-1.1) Eosinophils # (Auto) 0.3 x10^3/uL (0.0-0.7) Basophils # (Auto) 0.1 x10^3/uL (0.0-0.2) Sodium Level 142 mmol/L (136-145) Potassium Level 3.4 mmol/L (3.5-5.1) Chloride Level 102 mmol/L (98-107) Carbon Dioxide Level 38 mmol/L (21-32) Anion Gap 2 (6-14) Blood Urea Nitrogen 6 mg/dL (7-20) Creatinine 0.3 mg/dL (0.6-1.0) Estimated GFR (Cockcroft-Gault) 246.4 Glucose Level 157 mg/dL (70-99) Calcium Level 8.3 mg/dL (8.5-10.1) Laboratory Tests Test 07/15/21 12:18 07/15/21 23:31 07/16/21 05:05 Glucose (Fingerstick) 145 mg/dL (70-99) 143 mg/dL (70-99) White Blood Count 14.9 x10^3/uL (4.0-11.0) Red Blood Count 3.23 x10^6/uL (3.50-5.40) Hemoglobin 8.3 g/dL (12.0-15.5) Hematocrit 25.3 % (36.0-47.0) Mean Corpuscular Volume 79 fL (79-100) Mean Corpuscular Hemoglobin 26 pg (25-35) Mean Corpuscular Hemoglobin Concent 33 g/dL (31-37) Red Cell Distribution Width 21.6 % (11.5-14.5) Platelet Count 542 x10^3/uL (140-400) Neutrophils (%) (Auto) 79 % (31-73) Lymphocytes (%) (Auto) 14 % (24-48) Monocytes (%) (Auto) 5 % (0-9) Eosinophils (%) (Auto) 2 % (0-3) Basophils (%) (Auto) 1 % (0-3) Neutrophils # (Auto) 11.8 x10^3/uL (1.8-7.7) Lymphocytes # (Auto) 2.0 x10^3/uL (1.0-4.8) Monocytes # (Auto) 0.7 x10^3/uL (0.0-1.1) Eosinophils # (Auto) 0.3 x10^3/uL (0.0-0.7) Basophils # (Auto) 0.1 x10^3/uL (0.0-0.2) Sodium Level 142 mmol/L (136-145) Potassium Level 3.4 mmol/L (3.5-5.1) Chloride Level 102 mmol/L (98-107) Carbon Dioxide Level 38 mmol/L (21-32) Anion Gap 2 (6-14) Blood Urea Nitrogen 6 mg/dL (7-20) Creatinine 0.3 mg/dL (0.6-1.0) Estimated GFR (Cockcroft-Gault) 246.4 Glucose Level 157 mg/dL (70-99) Calcium Level 8.3 mg/dL (8.5-10.1) Medications Active Scripts Medications Dose Route/Sig Max Daily Dose Days Date Category Cyclobenzaprine Hcl 10 Mg Tablet 10 Mg PO TID 06/15/21 Reported Meloxicam 15 Mg Tablet 15 Mg PO DAILY 06/15/21 Reported Fluticasone Propionate Nasal [place] (Fluticasone Propionate) 16 Gm [place].susp 1 [place] NS DAILY 06/15/21 Reported Loratadine 10 Mg Tablet 10 Mg PO DAILY 06/15/21 Reported Furosemide 20 Mg Tablet 20 Mg PO DAILY 06/15/21 Reported Gabapentin (Gabapentin) 300 Mg Capsule 300 Mg PO TID 06/15/21 Reported Gabapentin (Gabapentin) 300 Mg Capsule 300 Mg PO TID 06/15/21 Reported Lisinopril 5 Mg Tablet 1 Tab PO DAILY 06/15/21 Reported Metformin Hcl 500 Mg Tablet 500 Mg PO BIDWMEALS 06/15/21 Reported Ozempic (Semaglutide) 0.25 Mg/0.2 Ml Pen.injctr 0.25 Mg SQ WEEKLY 06/15/21 Reported Comments CXR 07/14/21 IMPRESSION: Diffuse pulmonary opacities bilaterally without interval improvement. Impression . 1. Acute hypoxic respiratory failure secondary to ARDS/COVID-19 infection, worsening intubated 06/19/21. 2. Ab[address] CT of chest secondary to COVID-19 infection/ARDS 3. Diabetes type 2 with hyperglycemia 4. Hypotension, secondary to sepsis--resolved 5. Hyperlipdemia 6. Obesity 7. sepsis with Proteus mirabilis bacteremia and pneumonia 8. Proteus mirabilis in the sputum. 9 staph in the blood, no new positive cultures. Plan . Updated 07/16/21 Continue current vent support, currently PC mode and 100% and PEEP of 12 Would not escalate PEEP any further. Continue ABX per ID Follow CXR/ ABG --as needed. PT. is now a DNR DVT/GI PPX D/W RN and RT Very poor prognosis, minimal chance of survival. We will continue present aggressive care. Updated 07/15/21 Continue current vent support, currently PC mode and 100% and PEEP of 12 Would not escalate PEEP any further. Continue ABX per ID Follow CXR/ ABG --as needed. PT. is now a DNR DVT/GI PPX D/W RN and RT Very poor prognosis, likely not to survive Updated 07/14/21 Continue current vent support, currently PC mode and 100% and PEEP of 12 Continue ABX per ID Follow CXR/ ABG -- no changes today PT. is now a DNR DVT/GI PPX D/W RN and RT Very poor prognosis likely not to survive Updated 07/13 Continue current support Antibiotics per ID No significant improvement this past week Case discussed with family several days ago Family informed that patient may not survive Replace potassium Chest x-ray from 07/12 was reviewed 07/12 Continue current support Antibiotics per ID Long-term prognosis is poor NICOLETTE MORALES MD Jul 16, 2021 11:25
[2021-07-16] MEDS: ACETAMINOPHEN 325 MG TABLET. PO PRN (11:39)
--- NOTE | 2021-07-16 14:04 | PDOC ---
[employer] PROGRESS NOTE Date of Service DOS: DATE: 07/16/21 TIME: 14:01 Chief Complaint Chief Complaint Acute hypoxic respiratory failure requiring BiPAP and subsequent intubation - due to COVID 19 with ARDS COVID-19 pneumonia Morbid obesity History of diabetes mellitus type 2 History of hypertension Severe malnutrition Septic shock Gram negative bacteremia - proteus History of Present Illness History of Present Illness 07/16/2021 Patient seen and examined in the ICU Has OG feeds running at 40 cc an hour Still on the vent Pressure control 40 with 100% FiO2 and 12 of PEEP Her family is present I spent quite a bit of time discussing her prognosis with the family Currently sedated with Precedex propofol fentanyl Versed and also on IV paralytic (vecuronium) Has SCDs in place Has a rectal bag Has Mccall bedside drainage Chart reviewed Discussed with RN She remains extremely critically ill I am concerned she may not survive 07/15/2021 Patient seen and examined in the ICU She remains on the vent Pressure control of 40 with 100% FiO2 and 12 of PEEP rate of 20 OG feeds at 40 cc an hour Has rectal bag Mccall to bedside drainage She has SCDs on Sedated with propofol Precedex fentanyl Versed Also on IV vecuronium Has IV microfungi and hanging Discussed with RN Chart reviewed She remains extremely critically ill 07/14/2021 Patient seen and examined in the ICU She remains mechanically ventilated Pressure control with 40/1% FiO2 and 12 of PEEP and a rate of 20 Discussed with RN Chart reviewed Mccall bedside drainage Rectal bag in place She is still very critically ill 07/13/2021 patient seen and examined in the ICU she is still on the vent volume control of 40 with 100% FiO2 a rate of 20 and 12 of PEEP sedated with Precedex fentanyl and Versed has Mccall to bedside drainage rectal bag in place chart reviewed discussed with RN she remains extremely critically ill 07/12/2021 Patient seen and examined in the ICU Chart reviewed Discussed with RN Patient's white count has bumped up to 28,000 Currently on pressure support with 40 cm/h2o 100% FiO2 12 of PEEP and satting 81% She remains critically ill Ms Pierce is a transfer from [facility] in [facility], 40-year- old female with past medical history of diabetes, hypertension, dyslipidemia and morbid obesity who complains of shortness of breath 1 week ago and went to urgent care and found out that she was positive for Covid. She came in at 5:00 in the morning at [facility] is very hypoxic and was found to be her oxygen saturation was 68% she was put on a nonrebreather 15 L and she was improved to 90 to 93%. Patient is [id number]-fabemyrk. Patient is a poor historian. She does not know what kind of medication she takes for her medical history. 06/15: In the ICU. She was face time talking with family members. She was still on nonrebreather. Pulmonary consulted. 06/16: On Vapotherm. No major complaints. 06/17: Remains on Vapotherm although O2 requirement decreasing. Continue current plan. 06/18: On 40 L Vapotherm and now requiring NRB in addition. Afebrile and on broad-spectrum antibiotics. Remdesivir finishes today. 06/19: Intubated overnight in ICU. Afebrile. Currently breathing FiO2 100%. Completed remdesivir. We will continue IV steroids and antibiotics. 06/20: Low-grade fever overnight (T-max 99.7 F). Remains on vent, FiO2 90%, PEEP 10. Continue treatment with IV steroids and antibiotics. 06/21: Afebrile. On vent with FiO2 80%, PEEP 10. Cont treatment with antibiotics steroids total of 10 day course (steroid taper to begin 06/24). 06/22: Afebrile. Remains on ventilator with FiO2 70%, PEEP 10. Completed remdesivir. Continue antibiotics, steroids with slow taper. 06/23: Afebrile. On vent with FiO2 of 70, PEEP 10. Continue antibiotics for diffuse bilateral opacities. Continue steroids with slow taper 06/24: Afebrile. On vent with FiO2 60%, PEEP 9. Continue antibiotics. Today is day 10 of steroids; will begin Solu-Medrol taper tomorrow. 06/25: On vent with FiO2 65, PEEP 9. Afebrile. Completed 10 days of steroids; will begin Solu-Medrol taper today at 60 mg twice daily. 06/26: Intubated and sedated vent at 20/450/70/9. Insulin dose to 10 units twice daily. Solu-Medrol decreased to 40 mg daily. Cont with IV Lasix 06/27: Intubated and sedated. Vent settings at assist control at saturating 97%. Vent settings set at 16/80/9. ABG at 7.4 8/58/32. 06/28: No acute events overnight. Patient continues to be intubated and sedated. Saturating 90% on assist control with vent settings of 16/80/9. 06/29: No acute events overnight patient saturating 98% on vent settings of 10/80/9. 06/30: Patient did have hypotensive episode during the day which required a 500 NS bolus. Possibly needing vasopressors. pressure support/80/9. 07/01: No acute events overnight. Patient saturating 99% on vent settings of 14 pressure support/80/9. Urine output of 3.6 L in the last 24 hours. 07/02: Paralyzed for vent dysynchrony. Saturating 100% on 70/9. Fever of 101.1 this morning. 07/03: Febrile 101.1 F. 70% FiO2 and 9 PEEP. Still requiring vecuronium for vent dyssynchrony. ID consulted for sepsis, ?VAP 07/04: T-max 102.6 F last 24 hours, afebrile overnight. Peripheral culture and culture from PICC and sputum and urine culture obtained. Now on meropenem and Zyvox. More hypoxic, ABG 7.4 1/57/48, requiring FiO2 90% PEEP of 9 07/05: Afebrile. ABG 7.3/66/60, FiO2 100% PEEP of 12. Sputum and blood cx proteus mirabilis. Urine with some yeast. Daughter bedside this morning noted she is thinking of withdrawing care. D/w patient's sister and nephew bedside patient has been aggressively cared for cont current care. 07/06: Afebrile overnight. Sedated on ventilator FiO2 100% PEEP 12, O2 saturation 90% on pulse oximetry, still requiring vecuronium for vent dyssynchrony. Labs pending. 07/07: Afebrile. Hb 9.4, ABG 2.97/65.8/54.7. Peak pressures over 50s pressure con trol currently paralyzed. Lasix on hold received albumin. Still requiring Levophed. CT abdomen pelvis pending. 07/08: Febrile to 100.6 F overnight. Vecuronium wean attempted and significantly dyssynchrony. Still requiring Levophed support. FiO2 100% 12 peak pressures in the 50s. Afebrile overnight. More hypoxic overnight, I:E ratio 2-1, paralyzed on vecuronium for dyssynchrony. FiO2 100% PEEP 12. WBC 10, Hb 8.1, platelets 314. Met with daughter, Lala, bedside and sister over the phone the continued decline and grim prognosis and they have requested DNR. 07/10/2021: Patient seen and examined in ICU. On pressure control of 40 with a rate of 20, 100% FiO2, and a PEEP of 12. SCD for DVT prophylaxis. Mccall to BSD. Rectal bag present. OG set at 40cc per hour. Sedated with fentanyl, propofol, and versed. On vecuronium drip. Triple lumen PICC line present on right arm. O2 saturation is still only 79%. Chest x-ray today showed stable life support devices and stable diffuse bilateral opacities. Discussed with RN. Chart reviewed. 07/11/2021 Patient seen and examined in the ICU He is still mechanically ventilated On pressure control with 100% FiO2 Mccall to BSD Rectal bag still present Sedated with propofol fentanyl and Versed Also has as needed vecuronium Her daughter is present I reviewed the case with her daughter extensively Chart reviewed Discussed with RN Patient is still critically ill Vitals/I&O Vitals/I&O: Vital Signs Date Time Temp Pulse Resp B/P (MAP) Pulse Ox O2 Delivery O2 Flow Rate FiO2 07/16/21 13:00 80 20 122/67 (85) 91 Ventilator 07/16/21 12:00 99.4 99.4 07/15/21 14:30 40.0 I & O 07/15/21 07/15/21 07/16/21 15:00 23:00 07:00 Intake Total 760 ml 4405.07 ml 853 ml Output Total 2725 ml 800 ml 900 ml Balance -1965 ml 3605.07 ml -47 ml Physical Exam Physical Exam: GENERAL: Sedated, orally intubated female, not in distress. HEENT: Both pupils are round and reacting. No conjunctival lesion. Mouth cannot be visualized, has orally intubated. NECK: Supple, no JVP, no lymphadenopathy. LUNGS: Clear. HEART: S1, S2 regular. ABDOMEN: Soft, nontender, no organomegaly. EXTREMITIES: No edema, cyanosis. SKIN: Unremarkable. NEUROLOGIC: The patient is sedated, intubated, neurologically unable to assess. General: No acute distress, Other (Intubated and sedated) Heart: Regular rate, Normal S1, Normal S2 Lungs: Crackles Abdomen: Normal bowel sounds, Soft Extremities: No clubbing, No edema, Normal pulses Skin: No rashes, No significant lesion Labs Labs: Laboratory Tests Test 07/15/21 23:31 07/16/21 05:05 Glucose (Fingerstick) 143 mg/dL (70-99) White Blood Count 14.9 x10^3/uL (4.0-11.0) Red Blood Count 3.23 x10^6/uL (3.50-5.40) Hemoglobin 8.3 g/dL (12.0-15.5) Hematocrit 25.3 % (36.0-47.0) Mean Corpuscular Volume 79 fL (79-100) Mean Corpuscular Hemoglobin 26 pg (25-35) Mean Corpuscular Hemoglobin Concent 33 g/dL (31-37) Red Cell Distribution Width 21.6 % (11.5-14.5) Platelet Count 542 x10^3/uL (140-400) Neutrophils (%) (Auto) 79 % (31-73) Lymphocytes (%) (Auto) 14 % (24-48) Monocytes (%) (Auto) 5 % (0-9) Eosinophils (%) (Auto) 2 % (0-3) Basophils (%) (Auto) 1 % (0-3) Neutrophils # (Auto) 11.8 x10^3/uL (1.8-7.7) Lymphocytes # (Auto) 2.0 x10^3/uL (1.0-4.8) Monocytes # (Auto) 0.7 x10^3/uL (0.0-1.1) Eosinophils # (Auto) 0.3 x10^3/uL (0.0-0.7) Basophils # (Auto) 0.1 x10^3/uL (0.0-0.2) Sodium Level 142 mmol/L (136-145) Potassium Level 3.4 mmol/L (3.5-5.1) Chloride Level 102 mmol/L (98-107) Carbon Dioxide Level 38 mmol/L (21-32) Anion Gap 2 (6-14) Blood Urea Nitrogen 6 mg/dL (7-20) Creatinine 0.3 mg/dL (0.6-1.0) Estimated GFR (Cockcroft-Gault) 246.4 Glucose Level 157 mg/dL (70-99) Calcium Level 8.3 mg/dL (8.5-10.1) Assessment and Plan Assessmemt and Plan Acute hypoxic respiratory failure requiring BiPAP and subsequent intubation - due to COVID 19 with ARDS COVID-19 pneumonia Morbid obesity History of diabetes mellitus type 2 History of hypertension Severe malnutrition Septic shock Gram negative bacteremia - proteus Plan: 0) Discussed with pharmacy, she completed the COVID protocol including remdesivir on June 18. 1) Continue ICU monitoring 2) Vent weaning 3) Continue IV sedation with dexmedetomidine, fentanyl, and versed. 4) Continue IV vecuronium 5) Appreciate subspecialty consult: 6) SCD for DVT prophylaxis 7) DNR 8) Prognosis guarded at best (I am concerned she may not survive, the family is aware of my concerns and understands the situation) Will cont to trend labs CC time 35minutes Comment Review of Relevant I have reviewed the following items man (where applicable) has been applied. Medications: Current Medications Medications (Trade) Dose Ordered Sig/Jun Route PRN Reason Start Time Stop Time Status Last Admin Dose Admin Potassium Bicarbonate (Potassium Effervescent Tablet) 60 meq 1X ONCE FT 07/16/21 08:00 07/16/21 08:01 DC 07/16/21 08:02 Magnesium Sulfate 100 ml @ 25 mls/hr 1X ONCE IV 07/16/21 08:00 07/16/21 11:59 DC 07/16/21 08:01 Justifications for Admission Other Justification Acute hypoxic respiratory failure and Covid pneumonia HUI OLMSTEAD III DO Jul 16, 2021 14:04
[2021-07-16] MEDS: fentaNYL HIGH DOSE PCA 55 ML IV PRN (16:36)
[2021-07-16] MEDS: MIDAZOLAM 100mg/100ml NS BAG 100 ML IV PRN (17:33)
[2021-07-17] VITALS (24 sets, daily range): BP systolic 97–143; BP diastolic 54–84
[2021-07-17] MEDS: DEXMEDETOMIDINE 400 MCG in IV NORMAL SALINE 100ML 96 ML IV PRN ×6 (01:17→22:05)
[2021-07-17] MEDS: NORCURON - VECURONIUM 50 MG in IV NORMAL SALINE 50ML 50 ML IV PRN ×4 (01:17→22:11)
[2021-07-17] MEDS: PROPOFOL 100 ML IV PRN ×8 (01:18→22:59)
[2021-07-17] MEDS: MIDAZOLAM 100mg/100ml NS BAG 100 ML IV PRN ×2 (04:40→15:42)
[2021-07-17] MEDS: INSULIN LISPRO 300 UNITS/3 ML VIAL. SQ SCH ×4 (05:05→23:52)
[2021-07-17] MEDS: MEROPENEM 1 GM in IV NORMAL SALINE 100ML 100 ML IV SCH ×3 (05:05→22:17)
[2021-07-17 06:22] LABS: BLOOD UREA NITROGEN 6 mg/dL (7-20); CALCIUM 8.2 mg/dL (8.5-10.1); CARBON DIOXIDE 42 mmol/L (21-32); CHLORIDE 99 mmol/L (98-107); CREATININE 0.3 mg/dL (0.6-1.0); GFR 246.4; GLUCOSE 133 mg/dL (70-99); SODIUM 140 mmol/L (136-145)
[2021-07-17 07:06] LABS: BASO # 0.1 x10^3/uL (0.0-0.2); BASO % 1 % (0-3); EOS # 0.2 x10^3/uL (0.0-0.7); EOS % 2 % (0-3); HEMOGLOBIN 8.4 g/dL (12.0-15.5); LYMPH # 1.6 x10^3/uL (1.0-4.8); LYMPH % 14 % (24-48); MEAN CORPUSCULAR HEMOGLOBIN 25 pg (25-35); MEAN CORPUSCULAR HGB CONC 32 g/dL (31-37); MEAN CORPUSCULAR VOLUME 78 fL (79-100); MONO # 0.6 x10^3/uL (0.0-1.1); MONO % 5 % (0-9); NEUT # 9.2 x10^3/uL (1.8-7.7); NEUT % 79 % (31-73); PLATELET COUNT 536 x10^3/uL (140-400); RED BLOOD COUNT 3.32 x10^6/uL (3.50-5.40); RED CELL DISTRIBUTION WIDTH 21.4 % (11.5-14.5); WHITE BLOOD COUNT 11.7 x10^3/uL (4.0-11.0)
--- NOTE | 2021-07-17 07:16 | PDOC ---
[employer] PROGRESS NOTE Date of Service DOS: DATE: 07/17/21 TIME: 07:12 Chief Complaint Chief Complaint Acute hypoxic respiratory failure requiring BiPAP and subsequent intubation - due to COVID 19 with ARDS COVID-19 pneumonia Morbid obesity History of diabetes mellitus type 2 History of hypertension Severe malnutrition Septic shock Gram negative bacteremia - proteus History of Present Illness History of Present Illness 07/17/2021: Patient remains in ICU on vent with FiO2 100%, PEEP 12. Continue meropenem, Zyvox, and micafungin, per ID. Has been made DNR. Extremely critically ill. Critical care time 30 minutes spent reviewing charts, reviewing labs, reviewing imaging, discussed with RN. 07/16/2021 Patient seen and examined in the ICU Has OG feeds running at 40 cc an hour Still on the vent Pressure control 40 with 100% FiO2 and 12 of PEEP Her family is present I spent quite a bit of time discussing her prognosis with the family Currently sedated with Precedex propofol fentanyl Versed and also on IV paralytic (vecuronium) Has SCDs in place Has a rectal bag Has Mccall bedside drainage Chart reviewed Discussed with RN She remains extremely critically ill I am concerned she may not survive 07/15/2021 Patient seen and examined in the ICU She remains on the vent Pressure control of 40 with 100% FiO2 and 12 of PEEP rate of 20 OG feeds at 40 cc an hour Has rectal bag Mccall to bedside drainage She has SCDs on Sedated with propofol Precedex fentanyl Versed Also on IV vecuronium Has IV microfungi and hanging Discussed with RN Chart reviewed She remains extremely critically ill 07/14/2021 Patient seen and examined in the ICU She remains mechanically ventilated Pressure control with 40/1% FiO2 and 12 of PEEP and a rate of 20 Discussed with RN Chart reviewed Mccall bedside drainage Rectal bag in place She is still very critically ill 07/13/2021 patient seen and examined in the ICU she is still on the vent volume control of 40 with 100% FiO2 a rate of 20 and 12 of PEEP sedated with Precedex fentanyl and Versed has Mccall to bedside drainage rectal bag in place chart reviewed discussed with RN she remains extremely critically ill 07/12/2021 Patient seen and examined in the ICU Chart reviewed Discussed with RN Patient's white count has bumped up to 28,000 Currently on pressure support with 40 cm/h2o 100% FiO2 12 of PEEP and satting 81% She remains critically ill Ms Pierce is a transfer from [facility] in [facility], 40-year-old female with past medical history of diabetes, hypertension, dyslipidemia and morbid obesity who complains of shortness of breath 1 week ago and went to urgent care and found out that she was positive for Covid. She came in at 5:00 in the morning at [facility] is very hypoxic and was found to be her oxygen saturation was 68% she was put on a nonrebreather 15 L and she was improved to 90 to 93%. Patient is [id number]. Patient is a poor historian. She does not know what kind of medication she takes for her medical history. 06/15: In the ICU. She was face time talking with family members. She was still on nonrebreather. Pulmonary consulted. 06/16: On Vapotherm. No major complaints. 06/17: Remains on Vapotherm although O2 requirement decreasing. Continue current plan. 06/18: On 40 L Vapotherm and now requiring NRB in addition. Afebrile and on broad-spectrum antibiotics. Remdesivir finishes today. 06/19: Intubated overnight in ICU. Afebrile. Currently breathing FiO2 100%. Completed remdesivir. We will continue IV steroids and antibiotics. 06/20: Low-grade fever overnight (T-max 99.7 F). Remains on vent, FiO2 90%, PEEP 10. Continue treatment with IV steroids and antibiotics. 06/21: Afebrile. On vent with FiO2 80%, PEEP 10. Cont treatment with antibiotics steroids total of 10 day course (steroid taper to begin 06/24). 06/22: Afebrile. Remains on ventilator with FiO2 70%, PEEP 10. Completed remdesivir. Continue antibiotics, steroids with slow taper. 06/23: Afebrile. On vent with FiO2 of 70, PEEP 10. Continue antibiotics for diffuse bilateral opacities. Continue steroids with slow taper 06/24: Afebrile. On vent with FiO2 60%, PEEP 9. Continue antibiotics. Today is day 10 of steroids; will begin Solu-Medrol taper tomorrow. 06/25: On vent with FiO2 65, PEEP 9. Afebrile. Completed 10 days of steroids; will begin Solu-Medrol taper today at 60 mg twice daily. 06/26: Intubated and sedated vent at 20/450/70/9. Insulin dose to 10 units twice daily. Solu-Medrol decreased to 40 mg daily. Cont with IV Lasix 06/27: Intubated and sedated. Vent settings at assist control at saturating 97%. Vent settings set at 16/80/9. ABG at 7.4 843/58/32. 06/28: No acute events overnight. Patient continues to be intubated and sedated. Saturating 90% on assist control with vent settings of 16/80/9. 06/29: No acute events overnight patient saturating 98% on vent settings of 10/80/9. 06/30: Patient did have hypotensive episode during the day which required a 500 NS bolus. Possibly needing vasopressors. pressure support/80/9. 07/01: No acute events overnight. Patient saturating 99% on vent settings of 14 pressure support/80/9. Urine output of 3.6 L in the last 24 hours. 07/02: Paralyzed for vent dysynchrony. Saturating 100% on 14/70/9. Fever of 101.1 this morning. 07/03: Febrile 101.1 F. 70% FiO2 and 9 PEEP. Still requiring vecuronium for vent dyssynchrony. ID consulted for sepsis, ?VAP 07/04: T-max 102.6 F last 24 hours, afebrile overnight. Peripheral culture and culture from PICC and sputum and urine culture obtained. Now on meropenem and Zyvox. More hypoxic, ABG 7.4 /57/48, requiring FiO2 90% PEEP of 9 07/05: Afebrile. ABG 7.3/66/60, FiO2 100% PEEP of 12. Sputum and blood cx proteus mirabilis. Urine with some yeast. Daughter bedside this morning noted she is thinking of withdrawing care. D/w patient's sister and nephew bedside patient has been aggressively cared for cont current care. 07/06: Afebrile overnight. Sedated on ventilator FiO2 100% PEEP 12, O2 saturation 90% on pulse oximetry, still requiring vecuronium for vent dyssynchrony. Labs pending. 07/07: Afebrile. Hb 9.4, ABG 2.97/65.8/54.7. Peak pressures over 50s pressure control currently paralyzed. Lasix on hold received albumin. Still requiring Levophed. CT abdomen pelvis pending. 07/08: Febrile to 100.6 F overnight. Vecuronium wean attempted and significantly dyssynchrony. Still requiring Levophed support. FiO2 100% 12 peak pressures in the 50s. Afebrile overnight. More hypoxic overnight, I:E ratio 2-1, paralyzed on vecuronium for dyssynchrony. FiO2 100% PEEP 12. WBC 10, Hb 8.1, platelets 314. Met with daughter, Lala, bedside and sister over the phone the continued decline and grim prognosis and they have requested DNR. 07/10/2021: Patient seen and examined in ICU. On pressure control of 40 with a rate of 20, 100% FiO2, and a PEEP of 12. SCD for DVT prophylaxis. Mccall to BSD. Rectal bag present. OG set at 40cc per hour. Sedated with fentanyl, propofol, and versed. On vecuronium drip. Triple lumen PICC line present on right arm. O2 saturation is still only 79%. Chest x-ray today showed stable life support devices and stable diffuse bilateral opacities. Discussed with RN. Chart reviewed. 07/11/2021 Patient seen and examined in the ICU He is still mechanically ventilated On pressure control with 100% FiO2 Mccall to BSD Rectal bag still present Sedated with propofol fentanyl and Versed Also has as needed vecuronium Her daughter is present I reviewed the case with her daughter extensively Chart reviewed Discussed with RN Patient is still critically ill Vitals/I&O Vitals/I&O: Vital Signs Date Time Temp Pulse Resp B/P (MAP) Pulse Ox O2 Delivery O2 Flow Rate FiO2 07/17/21 07:00 82 20 109/63 (78) 83 Ventilator 07/17/21 04:00 98.6 98.6 I & O 07/16/21 07/16/21 07/17/21 15:00 23:00 07:00 Intake Total 520 ml 4315.56 ml 2126 ml Output Total 3000 ml 602 ml 245 ml Balance -2480 ml 3713.56 ml 1881 ml Physical Exam Physical Exam: GENERAL: Sedated, orally intubated female, not in distress. HEENT: Both pupils are round and reacting. No conjunctival lesion. Mouth cannot be visualized, has orally intubated. NECK: Supple, no JVP, no lymphadenopathy. LUNGS: Clear. HEART: S1, S2 regular. ABDOMEN: Soft, nontender, no organomegaly. EXTREMITIES: No edema, cyanosis. SKIN: Unremarkable. NEUROLOGIC: The patient is sedated, intubated, neurologically unable to assess. General: No acute distress, Other (Intubated and sedated) Heart: Regular rate, Normal S1, Normal S2 Lungs: Crackles Abdomen: Normal bowel sounds, Soft Extremities: No clubbing, No edema, Normal pulses Skin: No rashes, No significant lesion Labs Labs: Laboratory Tests Test 07/16/21 17:32 07/16/21 23:20 07/17/21 05:02 07/17/21 05:50 Glucose (Fingerstick) 143 mg/dL (70-99) 138 mg/dL (70-99) 137 mg/dL (70-99) Sodium Level 140 mmol/L (136-145) Potassium Level 4.0 mmol/L (3.5-5.1) Chloride Level 99 mmol/L (98-107) Carbon Dioxide Level 42 mmol/L (21-32) Anion Gap (6-14) Blood Urea Nitrogen 6 mg/dL (7-20) Creatinine 0.3 mg/dL (0.6-1.0) Estimated GFR (Cockcroft-Gault) 246.4 Glucose Level 133 mg/dL (70-99) Calcium Level 8.2 mg/dL (8.5-10.1) Comment Review of Relevant I have reviewed the following items man (where applicable) has been applied. Medications: Current Medications Medications (Trade) Dose Ordered Sig/Jun Route PRN Reason Start Time Stop Time Status Last Admin Dose Admin Potassium Bicarbonate (Potassium Effervescent Tablet) 60 meq 1X ONCE FT 07/16/21 08:00 07/16/21 08:01 DC 07/16/21 08:02 Magnesium Sulfate 100 ml @ 25 mls/hr 1X ONCE IV 07/16/21 08:00 07/16/21 11:59 DC 07/16/21 08:01 Justifications for Admission Other Justification Acute hypoxic respiratory failure and Covid pneumonia CLAUDIO BORJA MD Jul 17, 2021 07:16
[2021-07-17] MEDS: PANTOPRAZOLE IV PUSH 40 MG VIAL. IVP SCH (07:45)
[2021-07-17] MEDS: MICAFUNGIN 100 MG in IV DEXTROSE 5% 100ML 100 ML IV SCH (07:46)
[2021-07-17] MEDS: FUROSEMIDE 40 MG/4 ML VIAL. IVP SCH (07:47)
[2021-07-17] MEDS: ASCORBIC ACID 1,000 MG TABLET PO SCH (07:47)
[2021-07-17] MEDS: ZINC SULFATE 220 MG CAPSULE. PO SCH (07:47)
[2021-07-17] MEDS: ENOXAPARIN 40 MG/0.4 ML SYRINGE. SQ SCH ×2 (07:47→21:02)
[2021-07-17] MEDS: LISINOPRIL 5 MG TABLET. PO SCH (07:50)
[2021-07-17] MEDS: THIAMINE 100 MG TABLET. PO SCH (07:50)
--- NOTE | 2021-07-17 07:50 | PDOC ---
Infectious Disease Note Subjective Subjective Intubated/ sedated FiO2 100% PEEP of 12 ROS ROS No nausea vomiting diarrhea Vital Sign Vital Signs Vital Signs Date Time Temp Pulse Resp B/P (MAP) Pulse Ox O2 Delivery O2 Flow Rate FiO2 07/17/21 07:24 81 Ventilator 07/17/21 07:00 82 20 109/63 (78) 07/17/21 04:00 98.6 98.6 Physical Exam PHYSICAL EXAM GENERAL: Sedated, orally intubated female, not in distress. HEENT: Both pupils are round and reacting. No conjunctival lesion. Mouth cannot be visualized, has orally intubated. NECK: Supple, no JVP, no lymphadenopathy. LUNGS: Clear. HEART: S1, S2 regular. ABDOMEN: Soft, nontender, no organomegaly. EXTREMITIES: No edema, cyanosis. SKIN: Unremarkable. NEUROLOGIC: The patient is sedated, intubated, neurologically unable to assess. Labs Lab Laboratory Tests Test 07/16/21 17:32 07/16/21 23:20 07/17/21 05:02 07/17/21 05:50 Glucose (Fingerstick) 143 mg/dL (70-99) 138 mg/dL (70-99) 137 mg/dL (70-99) White Blood Count 11.7 x10^3/uL (4.0-11.0) Red Blood Count 3.32 x10^6/uL (3.50-5.40) Hemoglobin 8.4 g/dL (12.0-15.5) Hematocrit 26.0 % (36.0-47.0) Mean Corpuscular Volume 78 fL (79-100) Mean Corpuscular Hemoglobin 25 pg (25-35) Mean Corpuscular Hemoglobin Concent 32 g/dL (31-37) Red Cell Distribution Width 21.4 % (11.5-14.5) Platelet Count 536 x10^3/uL (140-400) Neutrophils (%) (Auto) 79 % (31-73) Lymphocytes (%) (Auto) 14 % (24-48) Monocytes (%) (Auto) 5 % (0-9) Eosinophils (%) (Auto) 2 % (0-3) Basophils (%) (Auto) 1 % (0-3) Neutrophils # (Auto) 9.2 x10^3/uL (1.8-7.7) Lymphocytes # (Auto) 1.6 x10^3/uL (1.0-4.8) Monocytes # (Auto) 0.6 x10^3/uL (0.0-1.1) Eosinophils # (Auto) 0.2 x10^3/uL (0.0-0.7) Basophils # (Auto) 0.1 x10^3/uL (0.0-0.2) Sodium Level 140 mmol/L (136-145) Potassium Level 4.0 mmol/L (3.5-5.1) Chloride Level 99 mmol/L (98-107) Carbon Dioxide Level 42 mmol/L (21-32) Anion Gap (6-14) Blood Urea Nitrogen 6 mg/dL (7-20) Creatinine 0.3 mg/dL (0.6-1.0) Estimated GFR (Cockcroft-Gault) 246.4 Glucose Level 133 mg/dL (70-99) Calcium Level 8.2 mg/dL (8.5-10.1) Magnesium Level 2.3 mg/dL (1.8-2.4) Micro Recent blood cultures negative Sputum culture is negative Objective Assessment 1. Fever 2. COVID-19 infection. 3. Pulmonary infiltrates. 4. Respiratory failure. 5. Leukocytosis. 6. Morbid obesity. 7 G neg camilo bacteremia Proteus 8. Urine culture 07/04 and 07/12 C albicans Plan Plan of Care Cont Merrem ,Zyvox and micafungin supportive care CT abd and pelvis unable to do Now DNR Prognosis poor ROBERTO HADDAD MD Jul 17, 2021 07:50
--- NOTE | 2021-07-17 08:08 | RAD ---
EXAMINATION: Chest radiograph. VIEWS: Single view COMPARISON: 07/14/2021 INDICATION:40 years, Female, respiratory failure. ARDS.. FINDINGS: Stable cardiomediastinal silhouette. Stable to slightly worsening diffuse bilateral airspace opacitie s.. No sizable pleural effusion or pneumothorax. No acute osseous process. Endotracheal tube tip loca jaron approximately 3.6 cm proximal to the narcisa. Enteric tube tip is off image, but the sidehole seen within the stomach. Right PICC line catheter remains unchanged in position. IMPRESSION: Stable to slightly worsening diffuse bilateral airspace opacities. Electronically signed by: Ronan Castillo MD (07/17/2021 8:06 AM) [id number]
--- NOTE | 2021-07-17 09:54 | PDOC ---
PULMONARY PROGRESS NOTES DATE: 07/17/21 TIME: 09:51 Subjective Remains on vent support 100% and PEEP of 12 Oxygen saturation remained in the 80s, sometimes dips in the high 70s afebrile, T-max of 99.5 yesterday Vitals Vital Signs Date Time Temp Pulse Resp B/P (MAP) Pulse Ox O2 Delivery O2 Flow Rate FiO2 07/17/21 07:50 82 109/63 07/17/21 07:24 81 Ventilator 07/17/21 07:00 20 07/17/21 04:00 98.6 98.6 Comments ros unable to obtain on vent sedated Lungs: Crackles Cardiovascular: S1 Abdomen: Soft Extremities: No Edema Skin: Warm Labs Laboratory Tests Test 07/15/21 12:18 07/15/21 23:31 07/16/21 05:05 07/16/21 17:32 Glucose (Fingerstick) 145 mg/dL (70-99) 143 mg/dL (70-99) 143 mg/dL (70-99) White Blood Count 14.9 x10^3/uL (4.0-11.0) Red Blood Count 3.23 x10^6/uL (3.50-5.40) Hemoglobin 8.3 g/dL (12.0-15.5) Hematocrit 25.3 % (36.0-47.0) Mean Corpuscular Volume 79 fL (79-100) Mean Corpuscular Hemoglobin 26 pg (25-35) Mean Corpuscular Hemoglobin Concent 33 g/dL (31-37) Red Cell Distribution Width 21.6 % (11.5-14.5) Platelet Count 542 x10^3/uL (140-400) Neutrophils (%) (Auto) 79 % (31-73) Lymphocytes (%) (Auto) 14 % (24-48) Monocytes (%) (Auto) 5 % (0-9) Eosinophils (%) (Auto) 2 % (0-3) Basophils (%) (Auto) 1 % (0-3) Neutrophils # (Auto) 11.8 x10^3/uL (1.8-7.7) Lymphocytes # (Auto) 2.0 x10^3/uL (1.0-4.8) Monocytes # (Auto) 0.7 x10^3/uL (0.0-1.1) Eosinophils # (Auto) 0.3 x10^3/uL (0.0-0.7) Basophils # (Auto) 0.1 x10^3/uL (0.0-0.2) Sodium Level 142 mmol/L (136-145) Potassium Level 3.4 mmol/L (3.5-5.1) Chloride Level 102 mmol/L (98-107) Carbon Dioxide Level 38 mmol/L (21-32) Anion Gap 2 (6-14) Blood Urea Nitrogen 6 mg/dL (7-20) Creatinine 0.3 mg/dL (0.6-1.0) Estimated GFR (Cockcroft-Gault) 246.4 Glucose Level 157 mg/dL (70-99) Calcium Level 8.3 mg/dL (8.5-10.1) Test 07/16/21 23:20 07/17/21 05:02 07/17/21 05:50 Glucose (Fingerstick) 138 mg/dL (70-99) 137 mg/dL (70-99) White Blood Count 11.7 x10^3/uL (4.0-11.0) Red Blood Count 3.32 x10^6/uL (3.50-5.40) Hemoglobin 8.4 g/dL (12.0-15.5) Hematocrit 26.0 % (36.0-47.0) Mean Corpuscular Volume 78 fL (79-100) Mean Corpuscular Hemoglobin 25 pg (25-35) Mean Corpuscular Hemoglobin Concent 32 g/dL (31-37) Red Cell Distribution Width 21.4 % (11.5-14.5) Platelet Count 536 x10^3/uL (140-400) Neutrophils (%) (Auto) 79 % (31-73) Lymphocytes (%) (Auto) 14 % (24-48) Monocytes (%) (Auto) 5 % (0-9) Eosinophils (%) (Auto) 2 % (0-3) Basophils (%) (Auto) 1 % (0-3) Neutrophils # (Auto) 9.2 x10^3/uL (1.8-7.7) Lymphocytes # (Auto) 1.6 x10^3/uL (1.0-4.8) Monocytes # (Auto) 0.6 x10^3/uL (0.0-1.1) Eosinophils # (Auto) 0.2 x10^3/uL (0.0-0.7) Basophils # (Auto) 0.1 x10^3/uL (0.0-0.2) Sodium Level 140 mmol/L (136-145) Potassium Level 4.0 mmol/L (3.5-5.1) Chloride Level 99 mmol/L (98-107) Carbon Dioxide Level 42 mmol/L (21-32) Anion Gap (6-14) Blood Urea Nitrogen 6 mg/dL (7-20) Creatinine 0.3 mg/dL (0.6-1.0) Estimated GFR (Cockcroft-Gault) 246.4 Glucose Level 133 mg/dL (70-99) Calcium Level 8.2 mg/dL (8.5-10.1) Magnesium Level 2.3 mg/dL (1.8-2.4) Laboratory Tests Test 07/16/21 17:32 07/16/21 23:20 07/17/21 05:02 07/17/21 05:50 Glucose (Fingerstick) 143 mg/dL (70-99) 138 mg/dL (70-99) 137 mg/dL (70-99) White Blood Count 11.7 x10^3/uL (4.0-11.0) Red Blood Count 3.32 x10^6/uL (3.50-5.40) Hemoglobin 8.4 g/dL (12.0-15.5) Hematocrit 26.0 % (36.0-47.0) Mean Corpuscular Volume 78 fL (79-100) Mean Corpuscular Hemoglobin 25 pg (25-35) Mean Corpuscular Hemoglobin Concent 32 g/dL (31-37) Red Cell Distribution Width 21.4 % (11.5-14.5) Platelet Count 536 x10^3/uL (140-400) Neutrophils (%) (Auto) 79 % (31-73) Lymphocytes (%) (Auto) 14 % (24-48) Monocytes (%) (Auto) 5 % (0-9) Eosinophils (%) (Auto) 2 % (0-3) Basophils (%) (Auto) 1 % (0-3) Neutrophils # (Auto) 9.2 x10^3/uL (1.8-7.7) Lymphocytes # (Auto) 1.6 x10^3/uL (1.0-4.8) Monocytes # (Auto) 0.6 x10^3/uL (0.0-1.1) Eosinophils # (Auto) 0.2 x10^3/uL (0.0-0.7) Basophils # (Auto) 0.1 x10^3/uL (0.0-0.2) Sodium Level 140 mmol/L (136-145) Potassium Level 4.0 mmol/L (3.5-5.1) Chloride Level 99 mmol/L (98-107) Carbon Dioxide Level 42 mmol/L (21-32) Anion Gap (6-14) Blood Urea Nitrogen 6 mg/dL (7-20) Creatinine 0.3 mg/dL (0.6-1.0) Estimated GFR (Cockcroft-Gault) 246.4 Glucose Level 133 mg/dL (70-99) Calcium Level 8.2 mg/dL (8.5-10.1) Magnesium Level 2.3 mg/dL (1.8-2.4) Medications Active Scripts Medications Dose Route/Sig Max Daily Dose Days Date Category Cyclobenzaprine Hcl 10 Mg Tablet 10 Mg PO TID 06/15/21 Reported Meloxicam 15 Mg Tablet 15 Mg PO DAILY 06/15/21 Reported Fluticasone Propionate Nasal [place] (Fluticasone Propionate) 16 Gm [place].susp 1 [place] NS DAILY 06/15/21 Reported Loratadine 10 Mg Tablet 10 Mg PO DAILY 06/15/21 Reported Furosemide 20 Mg Tablet 20 Mg PO DAILY 06/15/21 Reported Gabapentin (Gabapentin) 300 Mg Capsule 300 Mg PO TID 06/15/21 Reported Gabapentin (Gabapentin) 300 Mg Capsule 300 Mg PO TID 06/15/21 Reported Lisinopril 5 Mg Tablet 1 Tab PO DAILY 06/15/21 Reported Metformin Hcl 500 Mg Tablet 500 Mg PO BIDWMEALS 06/15/21 Reported Ozempic (Semaglutide) 0.25 Mg/0.2 Ml Pen.injctr 0.25 Mg SQ WEEKLY 06/15/21 Reported Comments Chest x-ray reviewed 07/17/2021. Diffuse infiltrates consistent with ARDS with mild worsening CXR 07/14/21 IMPRESSION: Diffuse pulmonary opacities bilaterally without interval improvement. Impression . 1. Acute hypoxic respiratory failure secondary to ARDS/COVID-19 infection, worsening intubated 06/19/21. Continue to have severe ARDS. 2. Abnormal CT of chest secondary to COVID-19 infection/ARDS 3. Diabetes type 2 with hyperglycemia 4. Hypotension, secondary to sepsis--resolved 5. Hyperlipdemia 6. Obesity 7. sepsis with Proteus mirabilis bacteremia and pneumonia 8. Proteus mirabilis in the sputum. 9 staph in the blood, no new positive cultures. Plan . Updated 07/17/21 Continue current vent support, currently PC mode and 100% and PEEP of 12. Would not escalate PEEP any further. Continue ABX per ID Follow CXR/ ABG --as needed. PT. is now a DNR DVT/GI PPX D/W RN and RT Very poor prognosis, minimal chance of survival. We will continue present aggressive care. Chest x-ray continues to have significant infiltrates bilaterally with mild worsening Updated 07/16/21 Continue current vent support, currently PC mode and 100% and PEEP of 12 Would not escalate PEEP any further. Continue ABX per ID Follow CXR/ ABG --as needed. PT. is now a DNR DVT/GI PPX D/W RN and RT Very poor prognosis, minimal chance of survival. We will continue present aggressive care. Updated 07/15/21 Continue current vent support, currently PC mode and 100% and PEEP of 12 Would not escalate PEEP any further. Continue ABX per ID Follow CXR/ ABG --as needed. PT. is now a DNR DVT/GI PPX D/W RN and RT Very poor prognosis, likely not to survive Updated 07/14/21 Continue current vent support, currently PC mode and 100% and PEEP of 12 Continue ABX per ID Follow CXR/ ABG -- no changes today PT. is now a DNR DVT/GI PPX D/W RN and RT Very poor prognosis likely not to survive Updated 07/13 Continue current support Antibiotics per ID No significant improvement this past week Case discussed with family several days ago Family informed that patient may not survive Replace potassium Chest x-ray from 07/12 was reviewed 07/12 Continue current support Antibiotics per ID Long-term prognosis is poor NICOLETTE MORALES MD Jul 17, 2021 09:53
[2021-07-17] MEDS: INSULIN GLARGINE SYRINGE. SQ SCH ×2 (12:29→21:02)
[2021-07-17] MEDS: fentaNYL HIGH DOSE PCA 55 ML IV PRN (18:19)
[2021-07-18] VITALS (24 sets, daily range): BP systolic 92–109; BP diastolic 48–66
[2021-07-18] MEDS: DEXMEDETOMIDINE 400 MCG in IV NORMAL SALINE 100ML 96 ML IV PRN ×8 (01:18→21:34)
[2021-07-18] MEDS: MIDAZOLAM 100mg/100ml NS BAG 100 ML IV PRN ×3 (01:19→21:35)
[2021-07-18] MEDS: PROPOFOL 100 ML IV PRN ×9 (02:26→22:57)
[2021-07-18] MEDS: NORCURON - VECURONIUM 50 MG in IV NORMAL SALINE 50ML 50 ML IV PRN ×5 (03:13→23:08)
[2021-07-18] MEDS: MEROPENEM 1 GM in IV NORMAL SALINE 100ML 100 ML IV SCH ×3 (05:57→21:33)
[2021-07-18] MEDS: INSULIN LISPRO 300 UNITS/3 ML VIAL. SQ SCH ×3 (05:57→17:41)
--- NOTE | 2021-07-18 06:06 | PDOC ---
[employer] PROGRESS NOTE Date of Service DOS: DATE: 07/18/21 TIME: 06:03 Chief Complaint Chief Complaint Acute hypoxic respiratory failure requiring BiPAP and subsequent intubation - due to COVID 19 with ARDS COVID-19 pneumonia Morbid obesity History of diabetes mellitus type 2 History of hypertension Severe malnutrition Septic shock Gram negative bacteremia - proteus History of Present Illness History of Present Illness 07/18/2021: Afebrile, no acute events overnight. On vent with FiO2 100%, PEEP 12. Will continue meropenem, Zyvox, and micafungin. Very critically ill, poor prognosis. Critical care time 30 minutes spent reviewing charts, reviewing labs, reviewing imaging, discussion with RN. 07/17/2021: Patient remains in ICU on vent with FiO2 100%, PEEP 12. Continue m eropenem, Zyvox, and micafungin, per ID. Has been made DNR. Extremely critically ill. Critical care time 30 minutes spent reviewing charts, reviewing labs, reviewing imaging, discussed with RN. 07/16/2021 Patient seen and examined in the ICU Has OG feeds running at 40 cc an hour Still on the vent Pressure control 40 with 100% FiO2 and 12 of PEEP Her family is present I spent quite a bit of time discussing her prognosis with the family Currently sedated with Precedex propofol fentanyl Versed and also on IV paralytic (vecuronium) Has SCDs in place Has a rectal bag Has Mccall bedside drainage Chart reviewed Discussed with RN She remains extremely critically ill I am concerned she may not survive 07/15/2021 Patient seen and examined in the ICU She remains on the vent Pressure control of 40 with 100% FiO2 and 12 of PEEP rate of 20 OG feeds at 40 cc an hour Has rectal bag Mccall to bedside drainage She has SCDs on Sedated with propofol Precedex fentanyl Versed Also on IV vecuronium Has IV microfungi and hanging Discussed with RN Chart reviewed She remains extremely critically ill 07/14/2021 Patient seen and examined in the ICU She remains mechanically ventilated Pressure control with 40/1% FiO2 and 12 of PEEP and a rate of 20 Discussed with RN Chart reviewed Mccall bedside drainage Rectal bag in place She is still very critically ill 07/13/2021 patient seen and examined in the ICU she is still on the vent volume control of 40 with 100% FiO2 a rate of 20 and 12 of PEEP sedated with Precedex fentanyl and Versed has Mccall to bedside drainage rectal bag in place chart reviewed discussed with RN she remains extremely critically ill 07/12/2021 Patient seen and examined in the ICU Chart reviewed Discussed with RN Patient's white count has bumped up to 28,000 Currently on pressure support with 40 cm/h2o 100% FiO2 12 of PEEP and satting 81% She remains critically ill Ms Pierce is a transfer from [facility] in [facility], 40-year-old female with past medical history of diabetes, hypertension, dyslipidemia and morbid obesity who complains of shortness of breath 1 week ago and went to urgent care and found out that she was positive for Covid. She came in at 5:00 in the morning at [facility] is very hypoxic and was found to be her oxygen saturation was 68% she was put on a nonrebreather 15 L and she was improved to 90 to 93%. Patient is [id number]. Patient is a poor historian. She does not know what kind of medication she takes for her medical history. 06/15: In the ICU. She was face time talking with family members. She was still on nonrebreather. Pulmonary consulted. 06/16: On Vapotherm. No major complaints. 06/17: Remains on Vapotherm although O2 requirement decreasing. Continue current plan. 06/18: On 40 L Vapotherm and now requiring NRB in addition. Afebrile and on broad-spectrum antibiotics. Remdesivir finishes today. 06/19: Intubated overnight in ICU. Afebrile. Currently breathing FiO2 100%. Completed remdesivir. We will continue IV steroids and antibiotics. 06/20: Low-grade fever overnight (T-max 99.7 F). Remains on vent, FiO2 90%, PEEP 10. Continue treatment with IV steroids and antibiotics. 06/21: Afebrile. On vent with FiO2 80%, PEEP 10. Cont treatment with antibiotics steroids total of 10 day course (steroid taper to begin 06/24). 06/22: Afebrile. Remains on ventilator with FiO2 70%, PEEP 10. Completed remdesivir. Continue antibiotics, steroids with slow taper. 06/23: Afebrile. On vent with FiO2 of 70, PEEP 10. Continue antibiotics for diffuse bilateral opacities. Continue steroids with slow taper 06/24: Afebrile. On vent with FiO2 60%, PEEP 9. Continue antibiotics. Today is day 10 of steroids; will begin Solu-Medrol taper tomorrow. 06/25: On vent with FiO2 65, PEEP 9. Afebrile. Completed 10 days of steroids; will begin Solu-Medrol taper today at 60 mg twice daily. 06/26: Intubated and sedated vent at 20/450/70/9. Insulin dose to 10 units twice daily. Solu-Medrol decreased to 40 mg daily. Cont with IV Lasix 06/27: Intubated and sedated. Vent settings at assist control at saturating 97%. Vent settings set at 16/80/9. ABG at 7.4 /58/32. 06/28: No acute events overnight. Patient continues to be intubated and sedated. Saturating 90% on assist control with vent settings of 16/80/9. 06/29: No acute events overnight patient saturating 98% on vent settings of 10/80/9. 06/30: Patient did have hypotensive episode during the day which required a 500 NS bolus. Possibly needing vasopressors. pressure support/80/9. 07/01: No acute events overnight. Patient saturating 99% on vent settings of 14 pressure support/80/9. Urine output of 3.6 L in the last 24 hours. 07/02: Paralyzed for vent dysynchrony. Saturating 100% on 14/70/9. Fever of 101.1 this morning. 07/03: Febrile 101.1 F. 70% FiO2 and 9 PEEP. Still requiring vecuronium for vent dyssynchrony. ID consulted for sepsis, ?VAP 07/04: T-max 102.6 F last 24 hours, afebrile overnight. Peripheral culture and culture from PICC and sputum and urine culture obtained. Now on meropenem and Zyvox. More hypoxic, ABG 7.4 57/48, requiring FiO2 90% PEEP of 9 07/05: Afebrile. ABG 7.3/66/60, FiO2 100% PEEP of 12. Sputum and blood cx proteus mirabilis. Urine with some yeast. Daughter bedside this morning noted she is thinking of withdrawing care. D/w patient's sister and nephew bedside patient has been aggressively cared for cont current care. 07/06: Afebrile overnight. Sedated on ventilator FiO2 100% PEEP 12, O2 saturation 90% on pulse oximetry, still requiring vecuronium for vent dyssynchrony. Labs pending. 07/07: Afebrile. Hb 9.4, ABG 2.97/65.8/54.7. Peak pressures over 50s pressure control currently paralyzed. Lasix on hold received albumin. Still requiring Levophed. CT abdomen pelvis pending. 07/08: Febrile to 100.6 F overnight. Vecuronium wean attempted and significantly dyssynchrony. Still requiring Levophed support. FiO2 100% 12 peak pressures in the 50s. Afebrile overnight. More hypoxic overnight, I:E ratio 2-1, paralyzed on vecuronium for dyssynchrony. FiO2 100% PEEP 12. WBC 10, Hb 8.1, platelets 314. Met with daughter, Lala, bedside and sister over the phone the continued decline and grim prognosis and they have requested DNR. 07/10/2021: Patient seen and examined in ICU. On pressure control of 40 with a rate of 20, 100% FiO2, and a PEEP of 12. SCD for DVT prophylaxis. Mccall to BSD. Rectal bag present. OG set at 40cc per hour. Sedated with fentanyl, propofol, and versed. On vecuronium drip. Triple lumen PICC line present on right arm. O2 saturation is still only 79%. Chest x-ray today showed stable life support de vices and stable diffuse bilateral opacities. Discussed with RN. Chart reviewed. 07/11/2021 Patient seen and examined in the ICU He is still mechanically ventilated On pressure control with 100% FiO2 Mccall to BSD Rectal bag still present Sedated with propofol fentanyl and Versed Also has as needed vecuronium Her daughter is present I reviewed the case with her daughter extensively Chart reviewed Discussed with RN Patient is still critically ill Vitals/I&O Vitals/I&O: Vital Signs Date Time Temp Pulse Resp B/P (MAP) Pulse Ox O2 Delivery O2 Flow Rate FiO2 07/18/21 05:00 80 20 104/58 (73) 90 Ventilator 07/18/21 04:00 98.6 98.6 07/17/21 18:49 40.0 I & O 07/17/21 07/17/2121 15:00 23:00 07:00 Intake Total 500 ml 3002.25 ml 966 ml Output Total 1580 ml 1240 ml 290 ml Balance -1080 ml 1762.25 ml 676 ml Physical Exam Physical Exam: GENERAL: Sedated, orally intubated female, not in distress. HEENT: Both pupils are round and reacting. No conjunctival lesion. Mouth cannot be visualized, has orally intubated. NECK: Supple, no JVP, no lymphadenopathy. LUNGS: Clear. HEART: S1, S2 regular. ABDOMEN: Soft, nontender, no organomegaly. EXTREMITIES: No edema, cyanosis. SKIN: Unremarkable. NEUROLOGIC: The patient is sedated, intubated, neurologically unable to assess. General: No acute distress, Other (Intubated and sedated) Heart: Regular rate, Normal S1, Normal S2 Lungs: Crackles Abdomen: Normal bowel sounds, Soft Extremities: No clubbing, No edema, Normal pulses Skin: No rashes, No significant lesion Labs Labs: Laboratory Tests Test 07/17/21 12:28 07/17/21 18:17 07/17/21 23:26 Glucose (Fingerstick) 172 mg/dL (70-99) 137 mg/dL (70-99) 166 mg/dL (70-99) Comment Review of Relevant I have reviewed the following items man (where applicable) has been applied. Justifications for Admission Other Justification Acute hypoxic respiratory failure and Covid pneumonia CLAUDIO BORJA MD Jul 18, 2021 06:06
[2021-07-18 06:51] LABS: BASO # 0.1 x10^3/uL (0.0-0.2); BASO % 1 % (0-3); EOS # 0.2 x10^3/uL (0.0-0.7); EOS % 2 % (0-3); HEMATOCRIT 26.2 % (36.0-47.0); HEMOGLOBIN 8.5 g/dL (12.0-15.5); LYMPH # 1.8 x10^3/uL (1.0-4.8); LYMPH % 14 % (24-48); MEAN CORPUSCULAR HEMOGLOBIN 25 pg (25-35); MEAN CORPUSCULAR HGB CONC 32 g/dL (31-37); MEAN CORPUSCULAR VOLUME 79 fL (79-100); MONO # 0.8 x10^3/uL (0.0-1.1); MONO % 6 % (0-9); NEUT % 77 % (31-73); PLATELET COUNT 545 x10^3/uL (140-400); RED BLOOD COUNT 3.34 x10^6/uL (3.50-5.40); RED CELL DISTRIBUTION WIDTH 21.8 % (11.5-14.5)
[2021-07-18 06:53] LABS: BLOOD UREA NITROGEN 5 mg/dL (7-20); CALCIUM 8.3 mg/dL (8.5-10.1); CARBON DIOXIDE 43 mmol/L (21-32); CHLORIDE 100 mmol/L (98-107); CREATININE 0.2 mg/dL (0.6-1.0); GFR > 300.0; GLUCOSE 138 mg/dL (70-99); POTASSIUM 3.5 mmol/L (3.5-5.1); SODIUM 140 mmol/L (136-145)
[2021-07-18] MEDS: FUROSEMIDE 40 MG/4 ML VIAL. IVP SCH (08:07)
[2021-07-18] MEDS: ZINC SULFATE 220 MG CAPSULE. PO SCH (08:08)
[2021-07-18] MEDS: PANTOPRAZOLE IV PUSH 40 MG VIAL. IVP SCH (08:08)
[2021-07-18] MEDS: ASCORBIC ACID 1,000 MG TABLET PO SCH (08:08)
[2021-07-18] MEDS: THIAMINE 100 MG TABLET. PO SCH (08:08)
[2021-07-18] MEDS: ENOXAPARIN 40 MG/0.4 ML SYRINGE. SQ SCH ×2 (08:08→20:25)
[2021-07-18] MEDS: LISINOPRIL 5 MG TABLET. PO SCH (08:09)
[2021-07-18] MEDS: INSULIN GLARGINE SYRINGE. SQ SCH ×2 (09:57→20:26)
[2021-07-18] MEDS: MICAFUNGIN 100 MG in IV DEXTROSE 5% 100ML 100 ML IV SCH (09:58)
[2021-07-18 10:20] LABS: BASE EXCESS ABG 16 mmol/L (-3-3); HCO3 ABG 43 mmol/L (21-28); SAT O2 ABG 79 % (92-99)
--- NOTE | 2021-07-18 10:42 | PDOC ---
PULMONARY PROGRESS NOTES DATE: 07/18/21 TIME: 10:40 Subjective Remains on vent support 100% and PEEP of 12 Oxygen saturation remained in the high 80s Vitals Vital Signs Date Time Temp Pulse Resp B/P (MAP) Pulse Ox O2 Delivery O2 Flow Rate FiO2 07/18/21 10:00 72 20 97/48 (64) 89 Ventilator 07/18/21 08:00 98.6 98.6 07/17/21 18:49 40.0 Comments ros unable to obtain on vent sedated Lungs: Crackles Cardiovascular: S1 Abdomen: Soft Extremities: No Edema Skin: Warm Labs Laboratory Tests Test 07/16/21 17:32 07/16/21 23:20 07/17/21 05:02 07/17/21 05:50 Glucose (Fingerstick) 143 mg/dL (70-99) 138 mg/dL (70-99) 137 mg/dL (70-99) White Blood Count 11.7 x10^3/uL (4.0-11.0) Red Blood Count 3.32 x10^6/uL (3.50-5.40) Hemoglobin 8.4 g/dL (12.0-15.5) Hematocrit 26.0 % (36.0-47.0) Mean Corpuscular Volume 78 fL (79-100) Mean Corpuscular Hemoglobin 25 pg (25-35) Mean Corpuscular Hemoglobin Concent 32 g/dL (31-37) Red Cell Distribution Width 21.4 % (11.5-14.5) Platelet Count 536 x10^3/uL (140-400) Neutrophils (%) (Auto) 79 % (31-73) Lymphocytes (%) (Auto) 14 % (24-48) Monocytes (%) (Auto) 5 % (0-9) Eosinophils (%) (Auto) 2 % (0-3) Basophils (%) (Auto) 1 % (0-3) Neutrophils # (Auto) 9.2 x10^3/uL (1.8-7.7) Lymphocytes # (Auto) 1.6 x10^3/uL (1.0-4.8) Monocytes # (Auto) 0.6 x10^3/uL (0.0-1.1) Eosinophils # (Auto) 0.2 x10^3/uL (0.0-0.7) Basophils # (Auto) 0.1 x10^3/uL (0.0-0.2) Sodium Level 140 mmol/L (136-145) Potassium Level 4.0 mmol/L (3.5-5.1) Chloride Level 99 mmol/L (98-107) Carbon Dioxide Level 42 mmol/L (21-32) Anion Gap (6-14) Blood Urea Nitrogen 6 mg/dL (7-20) Creatinine 0.3 mg/dL (0.6-1.0) Estimated GFR (Cockcroft-Gault) 246.4 Glucose Level 133 mg/dL (70-99) Calcium Level 8.2 mg/dL (8.5-10.1) Magnesium Level 2.3 mg/dL (1.8-2.4) Test 07/17/21 12:28 07/17/21 18:17 07/17/21 23:26 07/18/21 05:55 Glucose (Fingerstick) 172 mg/dL (70-99) 137 mg/dL (70-99) 166 mg/dL (70-99) White Blood Count 13.0 x10^3/uL (4.0-11.0) Red Blood Count 3.34 x10^6/uL (3.50-5.40) Hemoglobin 8.5 g/dL (12.0-15.5) Hematocrit 26.2 % (36.0-47.0) Mean Corpuscular Volume 79 fL (79-100) Mean Corpuscular Hemoglobin 25 pg (25-35) Mean Corpuscular Hemoglobin Concent 32 g/dL (31-37) Red Cell Distribution Width 21.8 % (11.5-14.5) Platelet Count 545 x10^3/uL (140-400) Neutrophils (%) (Auto) 77 % (31-73) Lymphocytes (%) (Auto) 14 % (24-48) Monocytes (%) (Auto) 6 % (0-9) Eosinophils (%) (Auto) 2 % (0-3) Basophils (%) (Auto) 1 % (0-3) Neutrophils # (Auto) 10.0 x10^3/uL (1.8-7.7) Lymphocytes # (Auto) 1.8 x10^3/uL (1.0-4.8) Monocytes # (Auto) 0.8 x10^3/uL (0.0-1.1) Eosinophils # (Auto) 0.2 x10^3/uL (0.0-0.7) Basophils # (Auto) 0.1 x10^3/uL (0.0-0.2) Sodium Level 140 mmol/L (136-145) Potassium Level 3.5 mmol/L (3.5-5.1) Chloride Level 100 mmol/L (98-107) Carbon Dioxide Level 43 mmol/L (21-32) Anion Gap (6-14) Blood Urea Nitrogen 5 mg/dL (7-20) Creatinine 0.2 mg/dL (0.6-1.0) Estimated GFR (Cockcroft-Gault) > 300.0 Glucose Level 138 mg/dL (70-99) Calcium Level 8.3 mg/dL (8.5-10.1) Triglycerides Level 625 mg/dL (0-150) Test 07/18/21 05:57 Glucose (Fingerstick) 133 mg/dL (70-99) Laboratory Tests Test 07/17/21 12:28 07/17/21 18:17 07/17/21 23:26 07/18/21 05:55 Glucose (Fingerstick) 172 mg/dL (70-99) 137 mg/dL (70-99) 166 mg/dL (70-99) White Blood Count 13.0 x10^3/uL (4.0-11.0) Red Blood Count 3.34 x10^6/uL (3.50-5.40) Hemoglobin 8.5 g/dL (12.0-15.5) Hematocrit 26.2 % (36.0-47.0) Mean Corpuscular Volume 79 fL (79-100) Mean Corpuscular Hemoglobin 25 pg (25-35) Mean Corpuscular Hemoglobin Concent 32 g/dL (31-37) Red Cell Distribution Width 21.8 % (11.5-14.5) Platelet Count 545 x10^3/uL (140-400) Neutrophils (%) (Auto) 77 % (31-73) Lymphocytes (%) (Auto) 14 % (24-48) Monocytes (%) (Auto) 6 % (0-9) Eosinophils (%) (Auto) 2 % (0-3) Basophils (%) (Auto) 1 % (0-3) Neutrophils # (Auto) 10.0 x10^3/uL (1.8-7.7) Lymphocytes # (Auto) 1.8 x10^3/uL (1.0-4.8) Monocytes # (Auto) 0.8 x10^3/uL (0.0-1.1) Eosinophils # (Auto) 0.2 x10^3/uL (0.0-0.7) Basophils # (Auto) 0.1 x10^3/uL (0.0-0.2) Sodium Level 140 mmol/L (136-145) Potassium Level 3.5 mmol/L (3.5-5.1) Chloride Level 100 mmol/L (98-107) Carbon Dioxide Level 43 mmol/L (21-32) Anion Gap (6-14) Blood Urea Nitrogen 5 mg/dL (7-20) Creatinine 0.2 mg/dL (0.6-1.0) Estimated GFR (Cockcroft-Gault) > 300.0 Glucose Level 138 mg/dL (70-99) Calcium Level 8.3 mg/dL (8.5-10.1) Triglycerides Level 625 mg/dL (0-150) Test 07/18/21 05:57 Glucose (Fingerstick) 133 mg/dL (70-99) Medications Active Scripts Medications Dose Route/Sig Max Daily Dose Days Date Category Cyclobenzaprine Hcl 10 Mg Tablet 10 Mg PO TID 06/15/21 Reported Meloxicam 15 Mg Tablet 15 Mg PO DAILY 06/15/21 Reported Fluticasone Propionate Nasal [place] (Fluticasone Propionate) 16 Gm [place].susp 1 [place] NS DAILY 06/15/21 Reported Loratadine 10 Mg Tablet 10 Mg PO DAILY 06/15/21 Reported Furosemide 20 Mg Tablet 20 Mg PO DAILY 06/15/21 Reported Gabapentin (Gabapentin) 300 Mg Capsule 300 Mg PO TID 06/15/21 Reported Gabapentin (Gabapentin) 300 Mg Capsule 300 Mg PO TID 06/15/21 Reported Lisinopril 5 Mg Tablet 1 Tab PO DAILY 06/15/21 Reported Metformin Hcl 500 Mg Tablet 500 Mg PO BIDWMEALS 06/15/21 Reported Ozempic (Semaglutide) 0.25 Mg/0.2 Ml Pen.injctr 0.25 Mg SQ WEEKLY 06/15/21 Reported Comments Chest x-ray reviewed 07/17/2021. Diffuse infiltrates consistent with ARDS with mild worsening CXR 07/14/21 IMPRESSION: Diffuse pulmonary opacities bilaterally without interval improvement. Impression . 1. Acute hypoxic respiratory failure secondary to ARDS/COVID-19 infection, worsening intubated 06/19/21. Continue to have severe ARDS. 2. Abnormal CT of chest secondary to COVID-19 infection/ARDS 3. Diabetes type 2 with hyperglycemia 4. Hypotension, secondary to sepsis--resolved 5. Hyperlipdemia 6. Obesity 7. sepsis with Proteus mirabilis bacteremia and pneumonia 8. Proteus mirabilis in the sputum. 9 staph in the blood, no new positive cultures. Plan . Updated 07/18/21 Continue current vent support, currently PC mode and 100% increase PEEP to 13 today Avoid further barotrauma. Continue ABX per ID Follow CXR/ ABG --as needed. PT. is DNR DVT/GI PPX D/W RN and RT Very poor prognosis, minimal chance of survival. We will continue present care. Chest x-ray continues to have significant infiltrates bilaterally with mild worsening Updated 07/17/21 Continue current vent support, currently PC mode and 100% and PEEP of 12. Would not escalate PEEP any further. Continue ABX per ID Follow CXR/ ABG --as needed. PT. is now a DNR DVT/GI PPX D/W RN and RT Very poor prognosis, minimal chance of survival. We will continue present aggressive care. Chest x-ray continues to have significant infiltrates bilaterally with mild worsening Updated 07/16/21 Continue current vent support, currently PC mode and 100% and PEEP of 12 Would not escalate PEEP any further. Continue ABX per ID Follow CXR/ ABG --as needed. PT. is now a DNR DVT/GI PPX D/W RN and RT Very poor prognosis, minimal chance of survival. We will continue present aggressive care. Updated 07/15/21 Continue current vent support, currently PC mode and 100% and PEEP of 12 Would not escalate PEEP any further. Continue ABX per ID Follow CXR/ ABG --as needed. PT. is now a DNR DVT/GI PPX D/W RN and RT Very poor prognosis, likely not to survive Updated 07/14/21 Continue current vent support, currently PC mode and 100% and PEEP of 12 Continue ABX per ID Follow CXR/ ABG -- no changes today PT. is now a DNR DVT/GI PPX D/W RN and RT Very poor prognosis likely not to survive Updated 07/13 Continue current support Antibiotics per ID No significant improvement this past week Case discussed with family several days ago Family informed that patient may not survive Replace potassium Chest x-ray from 07/12 was reviewed 07/12 Continue current support Antibiotics per ID Long-term prognosis is poor NICOLETTE MORALES MD Jul 18, 2021 10:42
--- NOTE | 2021-07-18 10:47 | NUR ---
SS following up with discharge planning. SS reviewed pt chart and discussed with pt RN. Pt is currently on the vent at 100%. Peep of 13. COVID19 recovered. Pt on Propofol, Versed, Fentanyl, Precedex, and Vec. Pt on IV Lasix, IV Zyvox, IV Meropenem, and IV Micafungin. DNR. Not stable. SS will continue to follow for discharge planning.
--- NOTE | 2021-07-18 11:05 | PDOC ---
Infectious Disease Note Subjective Subjective Intubated/ sedated FiO2 100% PEEP of 12 ROS ROS No nausea vomiting diarrhea Vital Sign Vital Signs Vital Signs Date Time Temp Pulse Resp B/P (MAP) Pulse Ox O2 Delivery O2 Flow Rate FiO2 07/18/21 10:00 72 20 97/48 (64) 89 Ventilator 07/18/21 08:00 98.6 98.6 07/17/21 18:49 40.0 Physical Exam PHYSICAL EXAM GENERAL: Sedated, orally intubated female, not in distress. HEENT: Both pupils are round and reacting. No conjunctival lesion. Mouth cannot be visualized, has orally intubated. NECK: Supple, no JVP, no lymphadenopathy. LUNGS: Clear. HEART: S1, S2 regular. ABDOMEN: Soft, nontender, no organomegaly. EXTREMITIES: No edema, cyanosis. SKIN: Unremarkable. NEUROLOGIC: The patient is sedated, intubated, neurologically unable to assess. Labs Lab Laboratory Tests Test 07/17/21 12:28 07/17/21 18:17 07/17/21 23:26 07/18/21 05:55 Glucose (Fingerstick) 172 mg/dL (70-99) 137 mg/dL (70-99) 166 mg/dL (70-99) White Blood Count 13.0 x10^3/uL (4.0-11.0) Red Blood Count 3.34 x10^6/uL (3.50-5.40) Hemoglobin 8.5 g/dL (12.0-15.5) Hematocrit 26.2 % (36.0-47.0) Mean Corpuscular Volume 79 fL (79-100) Mean Corpuscular Hemoglobin 25 pg (25-35) Mean Corpuscular Hemoglobin Concent 32 g/dL (31-37) Red Cell Distribution Width 21.8 % (11.5-14.5) Platelet Count 545 x10^3/uL (140-400) Neutrophils (%) (Auto) 77 % (31-73) Lymphocytes (%) (Auto) 14 % (24-48) Monocytes (%) (Auto) 6 % (0-9) Eosinophils (%) (Auto) 2 % (0-3) Basophils (%) (Auto) 1 % (0-3) Neutrophils # (Auto) 10.0 x10^3/uL (1.8-7.7) Lymphocytes # (Auto) 1.8 x10^3/uL (1.0-4.8) Monocytes # (Auto) 0.8 x10^3/uL (0.0-1.1) Eosinophils # (Auto) 0.2 x10^3/uL (0.0-0.7) Basophils # (Auto) 0.1 x10^3/uL (0.0-0.2) Sodium Level 140 mmol/L (136-145) Potassium Level 3.5 mmol/L (3.5-5.1) Chloride Level 100 mmol/L (98-107) Carbon Dioxide Level 43 mmol/L (21-32) Anion Gap (6-14) Blood Urea Nitrogen 5 mg/dL (7-20) Creatinine 0.2 mg/dL (0.6-1.0) Estimated GFR (Cockcroft-Gault) > 300.0 Glucose Level 138 mg/dL (70-99) Calcium Level 8.3 mg/dL (8.5-10.1) Triglycerides Level 625 mg/dL (0-150) Test 07/18/21 05:57 Glucose (Fingerstick) 133 mg/dL (70-99) Micro Recent blood cultures negative Sputum culture is negative Objective Assessment 1. Fever 2. COVID-19 infection. 3. Pulmonary infiltrates. 4. Respiratory failure. 5. Leukocytosis. 6. Morbid obesity. 7 G neg camilo bacteremia Proteus 8. Urine culture 07/04 and 07/12 C albicans Plan Plan of Care Cont Merrem ,Zyvox and micafungin supportive care CT abd and pelvis unable to do Now DNR Prognosis poor ROBERTO HADDAD MD Jul 18, 2021 11:05
[2021-07-18 13:06] LABS: FIO2 ABG 100/VENT; PCO2 ABG 68 mmHg (35-46); PO2 ABG 46 mmHg (75-108)
--- NOTE | 2021-07-18 16:02 | NUR ---
Wound Care Patient is too unstable to turn at this time, will follow up tomorrow
[2021-07-18] MEDS: fentaNYL HIGH DOSE PCA 55 ML IV PRN (21:36)
[2021-07-19] VITALS (24 sets, daily range): BP systolic 85–121; BP diastolic 48–83
[2021-07-19] MEDS: DEXMEDETOMIDINE 400 MCG in IV NORMAL SALINE 100ML 96 ML IV PRN ×9 (00:05→23:42)
[2021-07-19] MEDS: PROPOFOL 100 ML IV PRN ×9 (01:17→23:19)
[2021-07-19] MEDS: NORCURON - VECURONIUM 50 MG in IV NORMAL SALINE 50ML 50 ML IV PRN ×5 (04:33→22:04)
[2021-07-19] MEDS: MEROPENEM 1 GM in IV NORMAL SALINE 100ML 100 ML IV SCH ×3 (05:28→22:04)
[2021-07-19] MEDS: INSULIN LISPRO 300 UNITS/3 ML VIAL. SQ SCH ×5 (05:29→23:43)
--- NOTE | 2021-07-19 06:03 | PDOC ---
[employer] PROGRESS NOTE Date of Service DOS: DATE: 07/19/21 TIME: 05:58 Chief Complaint Chief Complaint Acute hypoxic respiratory failure requiring BiPAP and subsequent intubation - due to COVID 19 with ARDS COVID-19 pneumonia Morbid obesity History of diabetes mellitus type 2 History of hypertension Severe malnutrition Septic shock Gram negative bacteremia - proteus History of Present Illness History of Present Illness 07/19/2021: Afebrile. On ventilator with FiO2 100% and PEEP 13. O2 saturations are mid 80s despite high vent settings. Continue meropenem, Zyvox, and micafungin, per ID. Very critically ill, poor prognosis. Critical care time 30 minutes spent reviewing charts, reviewing labs, reviewing imaging, discussion with RN. 07/18/2021: Afebrile, no acute events overnight. On vent with FiO2 100%, PEEP 12. Will continue meropenem, Zyvox, and micafungin. Very critically ill, poor prognosis. Critical care time 30 minutes spent reviewing charts, reviewing labs, reviewing imaging, discussion with RN. 07/17/2021: Patient remains in ICU on vent with FiO2 100%, PEEP 12. Continue meropenem, Zyvox, and micafungin, per ID. Has been made DNR. Extremely critically ill. Critical care time 30 minutes spent reviewing charts, reviewing labs, reviewing imaging, discussed with RN. 07/16/2021 Patient seen and examined in the ICU Has OG feeds running at 40 cc an hour Still on the vent Pressure control 40 with 100% FiO2 and 12 of PEEP Her family is present I spent quite a bit of time discussing her prognosis with the family Currently sedated with Precedex propofol fentanyl Versed and also on IV paralytic (vecuronium) Has SCDs in place Has a rectal bag Has Mccall bedside drainage Chart reviewed Discussed with RN She remains extremely critically ill I am concerned she may not survive 07/15/2021 Patient seen and examined in the ICU She remains on the vent Pressure control of 40 with 100% FiO2 and 12 of PEEP rate of 20 OG feeds at 40 cc an hour Has rectal bag Mccall to bedside drainage She has SCDs on Sedated with propofol Precedex fentanyl Versed Also on IV vecuronium Has IV microfungi and hanging Discussed with RN Chart reviewed She remains extremely critically ill 07/14/2021 Patient seen and examined in the ICU She remains mechanically ventilated Pressure control with 40/1% FiO2 and 12 of PEEP and a rate of 20 Discussed with RN Chart reviewed Mccall bedside drainage Rectal bag in place She is still very critically ill 07/13/2021 patient seen and examined in the ICU she is still on the vent volume control of 40 with 100% FiO2 a rate of 20 and 12 of PEEP sedated with Precedex fentanyl and Versed has Mccall to bedside drainage rectal bag in place chart reviewed discussed with RN she remains extremely critically ill 07/12/2021 Patient seen and examined in the ICU Chart reviewed Discussed with RN Patient's white count has bumped up to 28,000 Currently on pressure support with 40 cm/h2o 100% FiO2 12 of PEEP and satting 81% She remains critically ill Ms Pierce is a transfer from [facility] in [facility], 40-year-old female with past medical history of diabetes, hypertension, dyslipidemia and morbid obesity who complains of shortness of breath 1 week ago and went to urgent care and found out that she was positive for Covid. She came in at 5:00 in the morning at [facility] [place] is very hypoxic and was found to be her oxygen saturation was 68% she was put on a nonrebreather 15 L and she was improved to 90 to 93%. Patient is [id number]. Patient is a poor historian. She does not know what kind of medication she takes for her medical history. 06/15: In the ICU. She was face time talking with family members. She was still on nonrebreather. Pulmonary consulted. 06/16: On Vapotherm. No major complaints. 06/17: Remains on Vapotherm although O2 requirement decreasing. Continue current plan. 06/18: On 40 L Vapotherm and now requiring NRB in addition. Afebrile and on broad-spectrum antibiotics. Remdesivir finishes today. 06/19: Intubated overnight in ICU. Afebrile. Currently breathing FiO2 100%. Completed remdesivir. We will continue IV steroids and antibiotics. 06/20: Low-grade fever overnight (T-max 99.7 F). Remains on vent, FiO2 90%, PEEP 10. Continue treatment with IV steroids and antibiotics. 06/21: Afebrile. On vent with FiO2 80%, PEEP 10. Cont treatment with antibiotics steroids total of 10 day course (steroid taper to begin 06/24). 06/22: Afebrile. Remains on ventilator with FiO2 70%, PEEP 10. Completed remdesivir. Continue antibiotics, steroids with slow taper. 06/23: Afebrile. On vent with FiO2 of 70, PEEP 10. Continue antibiotics for diffuse bilateral opacities. Continue steroids with slow taper 06/24: Afebrile. On vent with FiO2 60%, PEEP 9. Continue antibiotics. Today is day 10 of steroids; will begin Solu-Medrol taper tomorrow. 06/25: On vent with FiO2 65, PEEP 9. Afebrile. Completed 10 days of steroids; will begin Solu-Medrol taper today at 60 mg twice daily. 06/26: Intubated and sedated vent at 20/450/70/9. Insulin dose to 10 units twice daily. Solu-Medrol decreased to 40 mg daily. Cont with IV Lasix 06/27: Intubated and sedated. Vent settings at assist control at saturating 97%. Vent settings set at 16/80/9. ABG at 7.4 /58/32. 06/28: No acute events overnight. Patient continues to be intubated and sedated. Saturating 90% on assist control with vent settings of 16/80/9. 06/29: No acute events overnight patient saturating 98% on vent settings of 10/80/9. 06/30: Patient did have hypotensive episode during the day which required a 500 NS bolus. Possibly needing vasopressors. pressure support/80/9. 07/01: No acute events overnight. Patient saturating 99% on vent settings of 14 pressure support/80/9. Urine output of 3.6 L in the last 24 hours. 07/02: Paralyzed for vent dysynchrony. Saturating 100% on 14/70/9. Fever of 101.1 this morning. 07/03: Febrile 101.1 F. 70% FiO2 and 9 PEEP. Still requiring vecuronium for vent dyssynchrony. ID consulted for sepsis, ?VAP 07/04: T-max 102.6 F last 24 hours, afebrile overnight. Peripheral culture and culture from PICC and sputum and urine culture obtained. Now on meropenem and Zyvox. More hypoxic, ABG 7.4 /48, requiring FiO2 90% PEEP of 9 07/05: Afebrile. ABG 7.3/66/60, FiO2 100% PEEP of 12. Sputum and blood cx proteus mirabilis. Urine with some yeast. Daughter bedside this morning noted she is thinking of withdrawing care. D/w patient's sister and nephew bedside patient has been aggressively cared for cont current care. 07/06: Afebrile overnight. Sedated on ventilator FiO2 100% PEEP 12, O2 saturation 90% on pulse oximetry, still requiring vecuronium for vent dyssynchrony. Labs pending. 07/07: Afebrile. Hb 9.4, ABG 2.97/65.8/54.7. Peak pressures over 50s pressure control currently paralyzed. Lasix on hold received albumin. Still requiring Levophed. CT abdomen pelvis pending. 07/08: Febrile to 100.6 F overnight. Vecuronium wean attempted and significantly dyssynchrony. Still requiring Levophed support. FiO2 100% 12 peak pressures in the 50s. Afebrile overnight. More hypoxic overnight, I:E ratio 2-1, paralyzed on vecuronium for dyssynchrony. FiO2 100% PEEP 12. WBC 10, Hb 8.1, platelets 314. Met with daughter, Lala, bedside and sister over the phone the continued decline and grim prognosis and they have requested DNR. 07/10/2021: Patient seen and examined in ICU. On pressure control of 40 with a rate of 20, 100% FiO2, and a PEEP of 12. SCD for DVT prophylaxis. Mccall to BSD. Rectal bag present. OG set at 40cc per hour. Sedated with fentanyl, propofol, and versed. On vecuronium drip. Triple lumen PICC line present on right arm. O2 saturation is still only 79%. Chest x-ray today showed stable life support devices and stable diffuse bilateral opacities. Discussed with RN. Chart reviewed. 07/11/2021 Patient seen and examined in the ICU He is still mechanically ventilated On pressure control with 100% FiO2 Mccall to BSD Rectal bag still present Sedated with propofol fentanyl and Versed Also has as needed vecuronium Her daughter is present I reviewed the case with her daughter extensively Chart reviewed Discussed with RN Patient is still critically ill Vitals/I&O Vitals/I&O: Vital Signs Date Time Temp Pulse Resp B/P (MAP) Pulse Ox O2 Delivery O2 Flow Rate FiO2 07/19/21 05:54 72 Ventilator 07/19/21 05:00 76 20 99/66 (77) 07/19/21 04:00 98.2 98.2 07/18/21 22:14 40.0 I & O 07/18/21 07/18/21 07/19/21 15:00 23:00 07:00 Intake Total 740 ml 2192 ml 2617 ml Output Total 1685 ml 300 ml 300 ml Balance -945 ml 1892 ml 2317 ml Physical Exam Physical Exam: GENERAL: Sedated, orally intubated female, not in distress. HEENT: Both pupils are round and reacting. No conjunctival lesion. Mouth cannot be visualized, has orally intubated. NECK: Supple, no JVP, no lymphadenopathy. LUNGS: Clear. HEART: S1, S2 regular. ABDOMEN: Soft, nontender, no organomegaly. EXTREMITIES: No edema, cyanosis. SKIN: Unremarkable. NEUROLOGIC: The patient is sedated, intubated, neurologically unable to assess. General: No acute distress, Other (Intubated and sedated) Heart: Regular rate, Normal S1, Normal S2 Lungs: Crackles Abdomen: Normal bowel sounds, Soft Extremities: No clubbing, No edema, Normal pulses Skin: No rashes, No significant lesion Labs Labs: Laboratory Tests Test 07/18/21 09:31 07/18/21 11:36 07/18/21 17:39 07/18/21 20:24 O2 Saturation 79 % (92-99) Arterial Blood pH 7.42 (7.35-7.45) Arterial Blood pCO2 at Patient Temp 68 mmHg (35-46) Arterial Blood pO2 at Patient Temp 46 mmHg (75-108) Arterial Blood HCO3 43 mmol/L (21-28) Arterial Blood Base Excess 16 mmol/L (-3-3) FiO2 100/vent Glucose (Fingerstick) 147 mg/dL (70-99) 136 mg/dL (70-99) 142 mg/dL (70-99) Test 07/19/21 00:03 07/19/21 05:27 Glucose (Fingerstick) 162 mg/dL (70-99) 150 mg/dL (70-99) Comment Review of Relevant I have reviewed the following items man (where applicable) has been applied. Justifications for Admission Other Justification Acute hypoxic respiratory failure and Covid pneumonia CLAUDIO BORJA MD Jul 19, 2021 06:03
[2021-07-19 06:27] LABS: BASO # 0.1 x10^3/uL (0.0-0.2); BASO % 1 % (0-3); EOS # 0.2 x10^3/uL (0.0-0.7); EOS % 2 % (0-3); HEMATOCRIT 25.8 % (36.0-47.0); HEMOGLOBIN 8.4 g/dL (12.0-15.5); LYMPH # 1.7 x10^3/uL (1.0-4.8); LYMPH % 16 % (24-48); MEAN CORPUSCULAR HEMOGLOBIN 26 pg (25-35); MEAN CORPUSCULAR HGB CONC 32 g/dL (31-37); MEAN CORPUSCULAR VOLUME 79 fL (79-100); MONO # 0.6 x10^3/uL (0.0-1.1); MONO % 6 % (0-9); NEUT # 7.7 x10^3/uL (1.8-7.7); NEUT % 76 % (31-73); PLATELET COUNT 459 x10^3/uL (140-400); RED BLOOD COUNT 3.28 x10^6/uL (3.50-5.40); RED CELL DISTRIBUTION WIDTH 22.6 % (11.5-14.5); WHITE BLOOD COUNT 10.2 x10^3/uL (4.0-11.0)
[2021-07-19 06:58] LABS: BLOOD UREA NITROGEN 6 mg/dL (7-20); CALCIUM 8.2 mg/dL (8.5-10.1); CARBON DIOXIDE 41 mmol/L (21-32); CHLORIDE 98 mmol/L (98-107); CREATININE 0.3 mg/dL (0.6-1.0); GFR 246.4; GLUCOSE 148 mg/dL (70-99); POTASSIUM 3.5 mmol/L (3.5-5.1); SODIUM 138 mmol/L (136-145)
--- NOTE | 2021-07-19 07:29 | NUR ---
Pts sats are in the 60's, daughter Jeff called and updated on pt condition. RT adjusted vent settings and sats are now in the low 80's.
--- NOTE | 2021-07-19 08:22 | PDOC ---
Infectious Disease Note Subjective Subjective Intubated/ sedated ROS ROS No nausea vomiting diarrhea or fever Vital Sign Vital Signs Vital Signs Date Time Temp Pulse Resp B/P (MAP) Pulse Ox O2 Delivery O2 Flow Rate FiO2 07/19/21 07:30 86 Ventilator 07/19/21 07:00 77 20 97/55 (69) 07/19/21 04:00 98.2 98.2 07/18/21 22:14 40.0 Physical Exam PHYSICAL EXAM GENERAL: Sedated, orally intubated female, not in distress. HEENT: Both pupils are round and reacting. No conjunctival lesion. Mouth cannot be visualized, has orally intubated. NECK: Supple, no JVP, no lymphadenopathy. LUNGS: Clear. HEART: S1, S2 regular. ABDOMEN: Soft, nontender, no organomegaly. EXTREMITIES: No edema, cyanosis. SKIN: Unremarkable. NEUROLOGIC: The patient is sedated, intubated, neurologically unable to assess. Labs Lab Laboratory Tests Test 07/18/21 09:31 07/18/21 11:36 07/18/21 17:39 07/18/21 20:24 O2 Saturation 79 % (92-99) Arterial Blood pH 7.42 (7.35-7.45) Arterial Blood pCO2 at Patient Temp 68 mmHg (35-46) Arterial Blood pO2 at Patient Temp 46 mmHg (75-108) Arterial Blood HCO3 43 mmol/L (21-28) Arterial Blood Base Excess 16 mmol/L (-3-3) FiO2 100/vent Glucose (Fingerstick) 147 mg/dL (70-99) 136 mg/dL (70-99) 142 mg/dL (70-99) Test 07/19/21 00:03 07/19/21 05:27 07/19/21 06:00 Glucose (Fingerstick) 162 mg/dL (70-99) 150 mg/dL (70-99) White Blood Count 10.2 x10^3/uL (4.0-11.0) Red Blood Count 3.28 x10^6/uL (3.50-5.40) Hemoglobin 8.4 g/dL (12.0-15.5) Hematocrit 25.8 % (36.0-47.0) Mean Corpuscular Volume 79 fL (79-100) Mean Corpuscular Hemoglobin 26 pg (25-35) Mean Corpuscular Hemoglobin Concent 32 g/dL (31-37) Red Cell Distribution Width 22.6 % (11.5-14.5) Platelet Count 459 x10^3/uL (140-400) Neutrophils (%) (Auto) 76 % (31-73) Lymphocytes (%) (Auto) 16 % (24-48) Monocytes (%) (Auto) 6 % (0-9) Eosinophils (%) (Auto) 2 % (0-3) Basophils (%) (Auto) 1 % (0-3) Neutrophils # (Auto) 7.7 x10^3/uL (1.8-7.7) Lymphocytes # (Auto) 1.7 x10^3/uL (1.0-4.8) Monocytes # (Auto) 0.6 x10^3/uL (0.0-1.1) Eosinophils # (Auto) 0.2 x10^3/uL (0.0-0.7) Basophils # (Auto) 0.1 x10^3/uL (0.0-0.2) Sodium Level 138 mmol/L (136-145) Potassium Level 3.5 mmol/L (3.5-5.1) Chloride Level 98 mmol/L (98-107) Carbon Dioxide Level 41 mmol/L (21-32) Anion Gap (6-14) Blood Urea Nitrogen 6 mg/dL (7-20) Creatinine 0.3 mg/dL (0.6-1.0) Estimated GFR (Cockcroft-Gault) 246.4 Glucose Level 148 mg/dL (70-99) Calcium Level 8.2 mg/dL (8.5-10.1) Micro Recent blood cultures negative Sputum culture is negative Objective Assessment 1. Fever 2. COVID-19 infection. 3. Pulmonary infiltrates. 4. Respiratory failure. 5. Leukocytosis. 6. Morbid obesity. 7 G neg camilo bacteremia Proteus 8. Urine culture 07/04 and 07/12 C albicans Plan Plan of Care Cont Merrem ,Zyvox and micafungin,, start scaling down supportive care CT abd and pelvis unable to do Now DNR Prognosis poor ROBERTO HADDAD MD Jul 19, 2021 08:22
[2021-07-19] MEDS: MIDAZOLAM 100mg/100ml NS BAG 100 ML IV PRN ×2 (08:31→17:32)
[2021-07-19] MEDS: ENOXAPARIN 40 MG/0.4 ML SYRINGE. SQ SCH ×2 (08:32→21:00)
[2021-07-19] MEDS: FUROSEMIDE 40 MG/4 ML VIAL. IVP SCH (08:32)
[2021-07-19] MEDS: PANTOPRAZOLE IV PUSH 40 MG VIAL. IVP SCH (08:32)
[2021-07-19] MEDS: LISINOPRIL 5 MG TABLET. PO SCH (08:32)
--- NOTE | 2021-07-19 08:44 | RAD ---
EXAM: Chest, single view. HISTORY: Respiratory failure. COMPARISON: 07/17/2021 FINDINGS: A frontal view of the chest is obtained. There is an endotracheal tube within the distal tr achea. There is a nasogastric tube within the stomach. There is a right PICC with the tip overlying e xpected location of the superior cavoatrial junction. There is stable diffuse interstitial and alveol ar infiltrate. No pleural effusion or pneumothorax is seen. There is a stable prominent cardiac silho uette. IMPRESSION: 1. Stable diffuse infiltrate. 2. Stable support lines and tubes. Electronically signed by: Mercy Kyle MD (07/19/2021 8:41 AM) [id number]
[2021-07-19] MEDS: INSULIN GLARGINE SYRINGE. SQ SCH ×2 (09:37→21:00)
[2021-07-19] MEDS: MICAFUNGIN 100 MG in IV DEXTROSE 5% 100ML 100 ML IV SCH (09:37)
--- NOTE | 2021-07-19 10:57 | PDOC ---
PULMONARY PROGRESS NOTES DATE: 07/19/21 TIME: 10:54 Subjective Patient continues to have persistent hypoxia despite increasing the PEEP to 14. She is currently on pressure control inverse ratio ventilation. Remains on vent support 100% Oxygen saturation remained in the high 80s Vitals Vital Signs Date Time Temp Pulse Resp B/P (MAP) Pulse Ox O2 Delivery O2 Flow Rate FiO2 07/19/21 10:00 84 20 106/64 (78) 81 Ventilator 07/19/21 08:00 98.8 98.8 07/18/21 22:14 40.0 Comments ros unable to obtain on vent sedated Lungs: Crackles Cardiovascular: S1 Abdomen: Soft Extremities: No Edema Skin: Warm Labs Laboratory Tests Test 07/17/21 12:28 07/17/21 18:17 07/17/21 23:26 07/18/21 05:55 Glucose (Fingerstick) 172 mg/dL (70-99) 137 mg/dL (70-99) 166 mg/dL (70-99) White Blood Count 13.0 x10^3/uL (4.0-11.0) Red Blood Count 3.34 x10^6/uL (3.50-5.40) Hemoglobin 8.5 g/dL (12.0-15.5) Hematocrit 26.2 % (36.0-47.0) Mean Corpuscular Volume 79 fL (79-100) Mean Corpuscular Hemoglobin 25 pg (25-35) Mean Corpuscular Hemoglobin Concent 32 g/dL (31-37) Red Cell Distribution Width 21.8 % (11.5-14.5) Platelet Count 545 x10^3/uL (140-400) Neutrophils (%) (Auto) 77 % (31-73) Lymphocytes (%) (Auto) 14 % (24-48) Monocytes (%) (Auto) 6 % (0-9) Eosinophils (%) (Auto) 2 % (0-3) Basophils (%) (Auto) 1 % (0-3) Neutrophils # (Auto) 10.0 x10^3/uL (1.8-7.7) Lymphocytes # (Auto) 1.8 x10^3/uL (1.0-4.8) Monocytes # (Auto) 0.8 x10^3/uL (0.0-1.1) Eosinophils # (Auto) 0.2 x10^3/uL (0.0-0.7) Basophils # (Auto) 0.1 x10^3/uL (0.0-0.2) Sodium Level 140 mmol/L (136-145) Potassium Level 3.5 mmol/L (3.5-5.1) Chloride Level 100 mmol/L (98-107) Carbon Dioxide Level 43 mmol/L (21-32) Anion Gap (6-14) Blood Urea Nitrogen 5 mg/dL (7-20) Creatinine 0.2 mg/dL (0.6-1.0) Estimated GFR (Cockcroft-Gault) > 300.0 Glucose Level 138 mg/dL (70-99) Calcium Level 8.3 mg/dL (8.5-10.1) Triglycerides Level 625 mg/dL (0-150) Test 07/18/21 05:57 07/18/21 09:31 07/18/21 11:36 07/18/21 17:39 Glucose (Fingerstick) 133 mg/dL (70-99) 147 mg/dL (70-99) 136 mg/dL (70-99) O2 Saturation 79 % (92-99) Arterial Blood pH 7.42 (7.35-7.45) Arterial Blood pCO2 at Patient Temp 68 mmHg (35-46) Arterial Blood pO2 at Patient Temp 46 mmHg (75-108) Arterial Blood HCO3 43 mmol/L (21-28) Arterial Blood Base Excess 16 mmol/L (-3-3) FiO2 100/vent Test 07/18/21 20:24 07/19/21 00:03 07/19/21 05:27 07/19/21 06:00 Glucose (Fingerstick) 142 mg/dL (70-99) 162 mg/dL (70-99) 150 mg/dL (70-99) White Blood Count 10.2 x10^3/uL (4.0-11.0) Red Blood Count 3.28 x10^6/uL (3.50-5.40) Hemoglobin 8.4 g/dL (12.0-15.5) Hematocrit 25.8 % (36.0-47.0) Mean Corpuscular Volume 79 fL (79-100) Mean Corpuscular Hemoglobin 26 pg (25-35) Mean Corpuscular Hemoglobin Concent 32 g/dL (31-37) Red Cell Distribution Width 22.6 % (11.5-14.5) Platelet Count 459 x10^3/uL (140-400) Neutrophils (%) (Auto) 76 % (31-73) Lymphocytes (%) (Auto) 16 % (24-48) Monocytes (%) (Auto) 6 % (0-9) Eosinophils (%) (Auto) 2 % (0-3) Basophils (%) (Auto) 1 % (0-3) Neutrophils # (Auto) 7.7 x10^3/uL (1.8-7.7) Lymphocytes # (Auto) 1.7 x10^3/uL (1.0-4.8) Monocytes # (Auto) 0.6 x10^3/uL (0.0-1.1) Eosinophils # (Auto) 0.2 x10^3/uL (0.0-0.7) Basophils # (Auto) 0.1 x10^3/uL (0.0-0.2) Sodium Level 138 mmol/L (136-145) Potassium Level 3.5 mmol/L (3.5-5.1) Chloride Level 98 mmol/L (98-107) Carbon Dioxide Level 41 mmol/L (21-32) Anion Gap (6-14) Blood Urea Nitrogen 6 mg/dL (7-20) Creatinine 0.3 mg/dL (0.6-1.0) Estimated GFR (Cockcroft-Gault) 246.4 Glucose Level 148 mg/dL (70-99) Calcium Level 8.2 mg/dL (8.5-10.1) Laboratory Tests Test 07/18/21 11:36 07/18/21 17:39 07/18/21 20:24 07/19/21 00:03 Glucose (Fingerstick) 147 mg/dL (70-99) 136 mg/dL (70-99) 142 mg/dL (70-99) 162 mg/dL (70-99) Test 07/19/21 05:27 07/19/21 06:00 Glucose (Fingerstick) 150 mg/dL (70-99) White Blood Count 10.2 x10^3/uL (4.0-11.0) Red Blood Count 3.28 x10^6/uL (3.50-5.40) Hemoglobin 8.4 g/dL (12.0-15.5) Hematocrit 25.8 % (36.0-47.0) Mean Corpuscular Volume 79 fL (79-100) Mean Corpuscular Hemoglobin 26 pg (25-35) Mean Corpuscular Hemoglobin Concent 32 g/dL (31-37) Red Cell Distribution Width 22.6 % (11.5-14.5) Platelet Count 459 x10^3/uL (140-400) Neutrophils (%) (Auto) 76 % (31-73) Lymphocytes (%) (Auto) 16 % (24-48) Monocytes (%) (Auto) 6 % (0-9) Eosinophils (%) (Auto) 2 % (0-3) Basophils (%) (Auto) 1 % (0-3) Neutrophils # (Auto) 7.7 x10^3/uL (1.8-7.7) Lymphocytes # (Auto) 1.7 x10^3/uL (1.0-4.8) Monocytes # (Auto) 0.6 x10^3/uL (0.0-1.1) Eosinophils # (Auto) 0.2 x10^3/uL (0.0-0.7) Basophils # (Auto) 0.1 x10^3/uL (0.0-0.2) Sodium Level 138 mmol/L (136-145) Potassium Level 3.5 mmol/L (3.5-5.1) Chloride Level 98 mmol/L (98-107) Carbon Dioxide Level 41 mmol/L (21-32) Anion Gap (6-14) Blood Urea Nitrogen 6 mg/dL (7-20) Creatinine 0.3 mg/dL (0.6-1.0) Estimated GFR (Cockcroft-Gault) 246.4 Glucose Level 148 mg/dL (70-99) Calcium Level 8.2 mg/dL (8.5-10.1) Medications Active Scripts Medications Dose Route/Sig Max Daily Dose Days Date Category Cyclobenzaprine Hcl 10 Mg Tablet 10 Mg PO TID 06/15/21 Reported Meloxicam 15 Mg Tablet 15 Mg PO DAILY 06/15/21 Reported Fluticasone Propionate Nasal [place] (Fluticasone Propionate) 16 Gm Cresco.susp 1 [place] NS DAILY 06/15/21 Reported Loratadine 10 Mg Tablet 10 Mg PO DAILY 06/15/21 Reported Furosemide 20 Mg Tablet 20 Mg PO DAILY 06/15/21 Reported Gabapentin (Gabapentin) 300 Mg Capsule 300 Mg PO TID 06/15/21 Reported Gabapentin (Gabapentin) 300 Mg Capsule 300 Mg PO TID 06/15/21 Reported Lisinopril 5 Mg Tablet 1 Tab PO DAILY 06/15/21 Reported Metformin Hcl 500 Mg Tablet 500 Mg PO BIDWMEALS 06/15/21 Reported Ozempic (Semaglutide) 0.25 Mg/0.2 Ml Pen.injctr 0.25 Mg SQ WEEKLY 06/15/21 Reported Comments Chest x-ray reviewed 07/19/2021. Diffuse interstitial infiltrates with total white out both lungs consistent with ARDS Chest x-ray reviewed 07/17/2021. Diffuse infiltrates consistent with ARDS with mild worsening CXR 07/14/21 IMPRESSION: Diffuse pulmonary opacities bilaterally without interval improvement. Impression . 1. Acute hypoxic respiratory failure secondary to ARDS/COVID-19 infection, worsening intubated 06/19/21. Continue to have severe ARDS. With severe persistent hypoxia despite increasing PEEP up to 14. 2[address] of chest secondary to COVID-19 infection/ARDS 3. Diabetes type 2 with hyperglycemia 4. Hypotension, secondary to sepsis--resolved 5. Hyperlipdemia 6. Obesity 7. sepsis with Proteus mirabilis bacteremia and pneumonia 8. Proteus mirabilis in the sputum. 9 staph in the blood, no new positive cultures. Plan . Updated 07/19/21 Continue current vent support, currently PC mode, inverse ratio ventilation and 100% increase PEEP of 14. Oxygen saturation remained in the mid to high 80s. Patient's chances of survival are very minimal. Would not escalate any further PEEP. Chest x-ray without any evidence of barotrauma. Continue ABX per ID Follow CXR/ ABG --as needed. PT. is DNR DVT/GI PPX D/W RN and RT Very poor prognosis, minimal chance of survival. We will continue present care. Will reach out to the family and informed them about the patient's critical condition addend: d/w daughter in detail Updated 07/18/21 Continue current vent support, currently PC mode and 100% increase PEEP to 13 today Avoid further barotrauma. Continue ABX per ID Follow CXR/ ABG --as needed. PT. is DNR DVT/GI PPX D/W RN and RT Very poor prognosis, minimal chance of survival. We will continue present care. Chest x-ray continues to have significant infiltrates bilaterally with mild worsening Updated 07/17/21 Continue current vent support, currently PC mode and 100% and PEEP of 12. Would not escalate PEEP any further. Continue ABX per ID Follow CXR/ ABG --as needed. PT. is now a DNR DVT/GI PPX D/W RN and RT Very poor prognosis, minimal chance of survival. We will continue present aggressive care. Chest x-ray continues to have significant infiltrates bilaterally with mild worsening Updated 07/16/21 Continue current vent support, currently PC mode and 100% and PEEP of 12 Would not escalate PEEP any further. Continue ABX per ID Follow CXR/ ABG --as needed. PT. is now a DNR DVT/GI PPX D/W RN and RT Very poor prognosis, minimal chance of survival. We will continue present aggressive care. Updated 07/15/21 Continue current vent support, currently PC mode and 100% and PEEP of 12 Would not escalate PEEP any further. Continue ABX per ID Follow CXR/ ABG --as needed. PT. is now a DNR DVT/GI PPX D/W RN and RT Very poor prognosis, likely not to survive Updated 07/14/21 Continue current vent support, currently PC mode and 100% and PEEP of 12 Continue ABX per ID Follow CXR/ ABG -- no changes today PT. is now a DNR DVT/GI PPX D/W RN and RT Very poor prognosis likely not to survive Updated 07/13 Continue current support Antibiotics per ID No significant improvement this past week Case discussed with family several days ago Family informed that patient may not survive Replace potassium Chest x-ray from 07/12 was reviewed 07/12 Continue current support Antibiotics per ID Long-term prognosis is poor NICOLETTE MORALES MD Jul 19, 2021 10:56
--- NOTE | 2021-07-19 15:37 | NUR ---
SS following up with discharge planning. SS reviewed pt chart and discussed with pt RN. Pt is currently on the vent at 100%. Peep of 14. COVID19 recovered. Pt on Propofol, Versed, Fentanyl, Precedex, and Vec. Pt on IV Lasix and IV Meropenem. DNR. Not stable. Prognosis poor. SS will continue to follow for discharge planning.
--- NOTE | 2021-07-19 15:39 | NUR ---
Wound Care Per ICU nurse, patient is too unstable to turn at this time, will follow up tomorrow.
--- NOTE | 2021-07-19 15:53 | NUR ---
Wound Care Per ICU nurse, patient is too unstable to turn at this time, will follow up tomorrow.
[2021-07-20] VITALS (24 sets, daily range): BP systolic 91–113; BP diastolic 51–72
[2021-07-20] MEDS: INSULIN LISPRO 300 UNITS/3 ML VIAL. SQ SCH ×3 (06:00→17:47)
[2021-07-20] MEDS: MEROPENEM 1 GM in IV NORMAL SALINE 100ML 100 ML IV SCH ×3 (06:00→22:00)
[2021-07-20] MEDS: PROPOFOL 100 ML IV PRN ×9 (06:12→23:49)
[2021-07-20] MEDS: NORCURON - VECURONIUM 50 MG in IV NORMAL SALINE 50ML 50 ML IV PRN ×5 (06:13→22:53)
[2021-07-20] MEDS: DEXMEDETOMIDINE 400 MCG in IV NORMAL SALINE 100ML 96 ML IV PRN ×8 (06:13→22:51)
[2021-07-20 06:34] LABS: BASO # 0.1 x10^3/uL (0.0-0.2); BASO % 1 % (0-3); EOS # 0.2 x10^3/uL (0.0-0.7); EOS % 2 % (0-3); HEMATOCRIT 26.2 % (36.0-47.0); HEMOGLOBIN 8.5 g/dL (12.0-15.5); LYMPH # 1.7 x10^3/uL (1.0-4.8); LYMPH % 16 % (24-48); MEAN CORPUSCULAR HEMOGLOBIN 25 pg (25-35); MEAN CORPUSCULAR HGB CONC 33 g/dL (31-37); MEAN CORPUSCULAR VOLUME 78 fL (79-100); MONO # 0.7 x10^3/uL (0.0-1.1); MONO % 6 % (0-9); NEUT # 8.1 x10^3/uL (1.8-7.7); NEUT % 75 % (31-73); PLATELET COUNT 502 x10^3/uL (140-400); RED BLOOD COUNT 3.35 x10^6/uL (3.50-5.40); RED CELL DISTRIBUTION WIDTH 22.4 % (11.5-14.5); WHITE BLOOD COUNT 10.8 x10^3/uL (4.0-11.0)
[2021-07-20] MEDS: MIDAZOLAM 100mg/100ml NS BAG 100 ML IV PRN ×2 (07:07→16:19)
[2021-07-20 07:10] LABS: CALCIUM 8.5 mg/dL (8.5-10.1); CREATININE 0.3 mg/dL (0.6-1.0); GFR 246.4; POTASSIUM 3.9 mmol/L (3.5-5.1)
--- NOTE | 2021-07-20 07:55 | PDOC ---
Infectious Disease Note Subjective Subjective Intubated/ sedated ROS ROS No nausea vomiting diarrhea Had low-grade fever 100.2 Vital Sign Vital Signs Vital Signs Date Time Temp Pulse Resp B/P (MAP) Pulse Ox O2 Delivery O2 Flow Rate FiO2 07/20/21 07:14 80 Ventilator 07/20/21 07:00 96 20 106/56 (73) 07/20/21 04:00 98.5 98.5 Physical Exam PHYSICAL EXAM GENERAL: Sedated, orally intubated female, not in distress. HEENT: Both pupils are round and reacting. No conjunctival lesion. Mouth cannot be visualized, has orally intubated. NECK: Supple, no JVP, no lymphadenopathy. LUNGS: Clear. HEART: S1, S2 regular. ABDOMEN: Soft, nontender, no organomegaly. EXTREMITIES: No edema, cyanosis. SKIN: Unremarkable. NEUROLOGIC: The patient is sedated, intubated, neurologically unable to assess. Labs Lab Laboratory Tests Test 07/19/21 11:22 07/19/21 17:30 07/19/21 20:57 07/19/21 23:43 Glucose (Fingerstick) 169 mg/dL (70-99) 133 mg/dL (70-99) 143 mg/dL (70-99) 148 mg/dL (70-99) Test 07/20/21 04:35 07/20/21 05:23 07/20/21 05:30 Sodium Level 140 mmol/L (136-145) Potassium Level 3.9 mmol/L (3.5-5.1) Chloride Level 97 mmol/L (98-107) Carbon Dioxide Level 37 mmol/L (21-32) Anion Gap 6 (6-14) Blood Urea Nitrogen 6 mg/dL (7-20) Creatinine 0.3 mg/dL (0.6-1.0) Estimated GFR (Cockcroft-Gault) 246.4 Glucose Level 140 mg/dL (70-99) Calcium Level 8.5 mg/dL (8.5-10.1) Glucose (Fingerstick) 135 mg/dL (70-99) White Blood Count 10.8 x10^3/uL (4.0-11.0) Red Blood Count 3.35 x10^6/uL (3.50-5.40) Hemoglobin 8.5 g/dL (12.0-15.5) Hematocrit 26.2 % (36.0-47.0) Mean Corpuscular Volume 78 fL (79-100) Mean Corpuscular Hemoglobin 25 pg (25-35) Mean Corpuscular Hemoglobin Concent 33 g/dL (31-37) Red Cell Distribution Width 22.4 % (11.5-14.5) Platelet Count 502 x10^3/uL (140-400) Neutrophils (%) (Auto) 75 % (31-73) Lymphocytes (%) (Auto) 16 % (24-48) Monocytes (%) (Auto) 6 % (0-9) Eosinophils (%) (Auto) 2 % (0-3) Basophils (%) (Auto) 1 % (0-3) Neutrophils # (Auto) 8.1 x10^3/uL (1.8-7.7) Lymphocytes # (Auto) 1.7 x10^3/uL (1.0-4.8) Monocytes # (Auto) 0.7 x10^3/uL (0.0-1.1) Eosinophils # (Auto) 0.2 x10^3/uL (0.0-0.7) Basophils # (Auto) 0.1 x10^3/uL (0.0-0.2) Micro Recent blood cultures negative Sputum culture is negative Objective Assessment 1. Fever 2. COVID-19 infection. 3. Pulmonary infiltrates. 4. Respiratory failure. 5. Leukocytosis. 6. Morbid obesity. 7 G neg camilo bacteremia Proteus 8. Urine culture 07/04 and 07/12 C albicans Plan Plan of Care Continue meropenem supportive care CT abd and pelvis unable to do Now DNR Prognosis poor ROBERTO HADDAD MD Jul 20, 2021 07:55
[2021-07-20] MEDS: PANTOPRAZOLE IV PUSH 40 MG VIAL. IVP SCH (08:53)
[2021-07-20] MEDS: ENOXAPARIN 40 MG/0.4 ML SYRINGE. SQ SCH ×2 (08:53→20:56)
[2021-07-20] MEDS: FUROSEMIDE 40 MG/4 ML VIAL. IVP SCH (08:53)
[2021-07-20] MEDS: LISINOPRIL 5 MG TABLET. PO SCH (08:54)
[2021-07-20] MEDS: INSULIN GLARGINE SYRINGE. SQ SCH ×2 (08:54→20:57)
--- NOTE | 2021-07-20 10:36 | PDOC ---
PULMONARY PROGRESS NOTES DATE: 07/20/21 TIME: 10:34 Subjective Patient continues to have persistent hypoxia despite increasing the PEEP to 14. She is currently on pressure control inverse ratio ventilation. Remains on vent support 100% Oxygen saturation remained in the high 80s Vitals Vital Signs Date Time Temp Pulse Resp B/P (MAP) Pulse Ox O2 Delivery O2 Flow Rate FiO2 07/20/21 10:00 100 20 112/64 (80) 84 Ventilator 07/20/21 08:00 100.2 100.2 Comments ros unable to obtain on vent sedated Lungs: Crackles Cardiovascular: S1 Abdomen: Soft Extremities: No Edema Skin: Warm Labs Laboratory Tests Test 07/18/21 11:36 07/18/21 17:39 07/18/21 20:24 07/19/21 00:03 Glucose (Fingerstick) 147 mg/dL (70-99) 136 mg/dL (70-99) 142 mg/dL (70-99) 162 mg/dL (70-99) Test 07/19/21 05:27 07/19/21 06:00 07/19/21 11:22 07/19/21 17:30 Glucose (Fingerstick) 150 mg/dL (70-99) 169 mg/dL (70-99) 133 mg/dL (70-99) White Blood Count 10.2 x10^3/uL (4.0-11.0) Red Blood Count 3.28 x10^6/uL (3.50-5.40) Hemoglobin 8.4 g/dL (12.0-15.5) Hematocrit 25.8 % (36.0-47.0) Mean Corpuscular Volume 79 fL (79-100) Mean Corpuscular Hemoglobin 26 pg (25-35) Mean Corpuscular Hemoglobin Concent 32 g/dL (31-37) Red Cell Distribution Width 22.6 % (11.5-14.5) Platelet Count 459 x10^3/uL (140-400) Neutrophils (%) (Auto) 76 % (31-73) Lymphocytes (%) (Auto) 16 % (24-48) Monocytes (%) (Auto) 6 % (0-9) Eosinophils (%) (Auto) 2 % (0-3) Basophils (%) (Auto) 1 % (0-3) Neutrophils # (Auto) 7.7 x10^3/uL (1.8-7.7) Lymphocytes # (Auto) 1.7 x10^3/uL (1.0-4.8) Monocytes # (Auto) 0.6 x10^3/uL (0.0-1.1) Eosinophils # (Auto) 0.2 x10^3/uL (0.0-0.7) Basophils # (Auto) 0.1 x10^3/uL (0.0-0.2) Sodium Level 138 mmol/L (136-145) Potassium Level 3.5 mmol/L (3.5-5.1) Chloride Level 98 mmol/L (98-107) Carbon Dioxide Level 41 mmol/L (21-32) Anion Gap (6-14) Blood Urea Nitrogen 6 mg/dL (7-20) Creatinine 0.3 mg/dL (0.6-1.0) Estimated GFR (Cockcroft-Gault) 246.4 Glucose Level 148 mg/dL (70-99) Calcium Level 8.2 mg/dL (8.5-10.1) Test 07/19/21 20:57 07/19/21 23:43 07/20/21 04:35 07/20/21 05:23 Glucose (Fingerstick) 143 mg/dL (70-99) 148 mg/dL (70-99) 135 mg/dL (70-99) Sodium Level 140 mmol/L (136-145) Potassium Level 3.9 mmol/L (3.5-5.1) Chloride Level 97 mmol/L (98-107) Carbon Dioxide Level 37 mmol/L (21-32) Anion Gap 6 (6-14) Blood Urea Nitrogen 6 mg/dL (7-20) Creatinine 0.3 mg/dL (0.6-1.0) Estimated GFR (Cockcroft-Gault) 246.4 Glucose Level 140 mg/dL (70-99) Calcium Level 8.5 mg/dL (8.5-10.1) Test 07/20/21 05:30 White Blood Count 10.8 x10^3/uL (4.0-11.0) Red Blood Count 3.35 x10^6/uL (3.50-5.40) Hemoglobin 8.5 g/dL (12.0-15.5) Hematocrit 26.2 % (36.0-47.0) Mean Corpuscular Volume 78 fL (79-100) Mean Corpuscular Hemoglobin 25 pg (25-35) Mean Corpuscular Hemoglobin Concent 33 g/dL (31-37) Red Cell Distribution Width 22.4 % (11.5-14.5) Platelet Count 502 x10^3/uL (140-400) Neutrophils (%) (Auto) 75 % (31-73) Lymphocytes (%) (Auto) 16 % (24-48) Monocytes (%) (Auto) 6 % (0-9) Eosinophils (%) (Auto) 2 % (0-3) Basophils (%) (Auto) 1 % (0-3) Neutrophils # (Auto) 8.1 x10^3/uL (1.8-7.7) Lymphocytes # (Auto) 1.7 x10^3/uL (1.0-4.8) Monocytes # (Auto) 0.7 x10^3/uL (0.0-1.1) Eosinophils # (Auto) 0.2 x10^3/uL (0.0-0.7) Basophils # (Auto) 0.1 x10^3/uL (0.0-0.2) Laboratory Tests Test 07/19/21 11:22 07/19/21 17:30 07/19/21 20:57 07/19/21 23:43 Glucose (Fingerstick) 169 mg/dL (70-99) 133 mg/dL (70-99) 143 mg/dL (70-99) 148 mg/dL (70-99) Test 07/20/21 04:35 07/20/21 05:23 07/20/21 05:30 Sodium Level 140 mmol/L (136-145) Potassium Level 3.9 mmol/L (3.5-5.1) Chloride Level 97 mmol/L (98-107) Carbon Dioxide Level 37 mmol/L (21-32) Anion Gap 6 (6-14) Blood Urea Nitrogen 6 mg/dL (7-20) Creatinine 0.3 mg/dL (0.6-1.0) Estimated GFR (Cockcroft-Gault) 246.4 Glucose Level 140 mg/dL (70-99) Calcium Level 8.5 mg/dL (8.5-10.1) Glucose (Fingerstick) 135 mg/dL (70-99) White Blood Count 10.8 x10^3/uL (4.0-11.0) Red Blood Count 3.35 x10^6/uL (3.50-5.40) Hemoglobin 8.5 g/dL (12.0-15.5) Hematocrit 26.2 % (36.0-47.0) Mean Corpuscular Volume 78 fL (79-100) Mean Corpuscular Hemoglobin 25 pg (25-35) Mean Corpuscular Hemoglobin Concent 33 g/dL (31-37) Red Cell Distribution Width 22.4 % (11.5-14.5) Platelet Count 502 x10^3/uL (140-400) Neutrophils (%) (Auto) 75 % (31-73) Lymphocytes (%) (Auto) 16 % (24-48) Monocytes (%) (Auto) 6 % (0-9) Eosinophils (%) (Auto) 2 % (0-3) Basophils (%) (Auto) 1 % (0-3) Neutrophils # (Auto) 8.1 x10^3/uL (1.8-7.7) Lymphocytes # (Auto) 1.7 x10^3/uL (1.0-4.8) Monocytes # (Auto) 0.7 x10^3/uL (0.0-1.1) Eosinophils # (Auto) 0.2 x10^3/uL (0.0-0.7) Basophils # (Auto) 0.1 x10^3/uL (0.0-0.2) Medications Active Scripts Medications Dose Route/Sig Max Daily Dose Days Date Category Cyclobenzaprine Hcl 10 Mg Tablet 10 Mg PO TID 06/15/21 Reported Meloxicam 15 Mg Tablet 15 Mg PO DAILY 06/15/21 Reported Fluticasone Propionate Nasal [place] (Fluticasone Propionate) 16 Gm [place].susp 1 [place] NS DAILY 06/15/21 Reported Loratadine 10 Mg Tablet 10 Mg PO DAILY 06/15/21 Reported Furosemide 20 Mg Tablet 20 Mg PO DAILY 06/15/21 Reported Gabapentin (Gabapentin) 300 Mg Capsule 300 Mg PO TID 06/15/21 Reported Gabapentin (Gabapentin) 300 Mg Capsule 300 Mg PO TID 06/15/21 Reported Lisinopril 5 Mg Tablet 1 Tab PO DAILY 06/15/21 Reported Metformin Hcl 500 Mg Tablet 500 Mg PO BIDWMEALS 06/15/21 Reported Ozempic (Semaglutide) 0.25 Mg/0.2 Ml Pen.injctr 0.25 Mg SQ WEEKLY 06/15/21 Reported Comments Chest x-ray reviewed 07/19/2021. Diffuse interstitial infiltrates with total white out both lungs consistent with ARDS Chest x-ray reviewed 07/17/2021. Diffuse infiltrates consistent with ARDS with mild worsening CXR 07/14/21 IMPRESSION: Diffuse pulmonary opacities bilaterally without interval improvement. Impression . 1. Acute hypoxic respiratory failure secondary to ARDS/COVID-19 infection, worsening intubated 06/19/21. Continue to have severe ARDS. With severe persis tent hypoxia despite increasing PEEP up to 14. 2[address] of chest secondary to COVID-19 infection/ARDS 3. Diabetes type 2 with hyperglycemia 4. Hypotension, secondary to sepsis--resolved 5. Hyperlipdemia 6. Obesity 7. sepsis with Proteus mirabilis bacteremia and pneumonia 8. Proteus mirabilis in the sputum. 9 staph in the blood, no new positive cultures. Plan . Updated 07/20/21 Continue current vent support, currently PC mode, inverse ratio ventilation and 100% increase PEEP of 14. Oxygen saturation remained in the mid to high 80s. Patient's chances of survival are very minimal. Would not escalate any further PEEP. Chest x-ray without any evidence of barotrauma. Continue ABX per ID Follow CXR/ ABG --as needed. PT. is DNR DVT/GI PPX D/W RN and RT Very poor prognosis, minimal chance of survival. We will continue present care. d/w daughter in detail 07/19/2021. Explained to her poor prognosis and unlikely chance of survival. She understands that. Continue present care Updated 07/19/21 Continue current vent support, currently PC mode, inverse ratio ventilation and 100% increase PEEP of 14. Oxygen saturation remained in the mid to high 80s. Patient's chances of survival are very minimal. Would not escalate any further PEEP. Chest x-ray without any evidence of barotrauma. Continue ABX per ID Follow CXR/ ABG --as needed. PT. is DNR DVT/GI PPX D/W RN and RT Very poor prognosis, minimal chance of survival. We will continue present care. Will reach out to the family and informed them about the patient's critical condition addend: d/w daughter in detail Updated 07/18/21 Continue current vent support, currently PC mode and 100% increase PEEP to 13 today Avoid further barotrauma. Continue ABX per ID Follow CXR/ ABG --as needed. PT. is DNR DVT/GI PPX D/W RN and RT Very poor prognosis, minimal chance of survival. We will continue present care. Chest x-ray continues to have significant infiltrates bilaterally with mild worsening Updated 07/17/21 Continue current vent support, currently PC mode and 100% and PEEP of 12. Would not escalate PEEP any further. Continue ABX per ID Follow CXR/ ABG --as needed. PT. is now a DNR DVT/GI PPX D/W RN and RT Very poor prognosis, minimal chance of survival. We will continue present aggressive care. Chest x-ray continues to have significant infiltrates bilaterally with mild worsening Updated 07/16/21 Continue current vent support, currently PC mode and 100% and PEEP of 12 Would not escalate PEEP any further. Continue ABX per ID Follow CXR/ ABG --as needed. PT. is now a DNR DVT/GI PPX D/W RN and RT Very poor prognosis, minimal chance of survival. We will continue present aggressive care. Updated 07/15/21 Continue current vent support, currently PC mode and 100% and PEEP of 12 Would not escalate PEEP any further. Continue ABX per ID Follow CXR/ ABG --as needed. PT. is now a DNR DVT/GI PPX D/W RN and RT Very poor prognosis, likely not to survive Updated 07/14/21 Continue current vent support, currently PC mode and 100% and PEEP of 12 Continue ABX per ID Follow CXR/ ABG -- no changes today PT. is now a DNR DVT/GI PPX D/W RN and RT Very poor prognosis likely not to survive Updated 07/13 Continue current support Antibiotics per ID No significant improvement this past week Case discussed with family several days ago Family informed that patient may not survive Replace potassium Chest x-ray from 07/12 was reviewed 07/12 Continue current support Antibiotics per ID Long-term prognosis is poor NICOLETTE MORALES MD Jul 20, 2021 10:36
--- NOTE | 2021-07-20 11:20 | PDOC ---
[employer] PROGRESS NOTE Date of Service DOS: DATE: 07/20/21 TIME: 11:17 Chief Complaint Chief Complaint Acute hypoxic respiratory failure requiring BiPAP and subsequent intubation - due to COVID 19 with ARDS COVID-19 pneumonia Morbid obesity History of diabetes mellitus type 2 History of hypertension Severe malnutrition Septic shock Gram negative bacteremia - proteus History of Present Illness History of Present Illness 07/20/2021: Tachycardic with low-grade fever this morning, T-max 100.2 F. On vent with FiO2 100%, PEEP 14. O2 saturations remain low 80s despite high vent settings. Critically ill, very poor prognosis. Continue with IV antibiotics, per ID. Critical care time 30 minutes spent reviewing charts, reviewing labs, reviewing imaging, discussion with RN. 07/19/2021: Afebrile. On ventilator with FiO2 100% and PEEP 13. O2 saturations are mid 80s despite high vent settings. Continue meropenem, Zyvox, and micafungin, per ID. Very critically ill, poor prognosis. Critical care time 30 minutes spent reviewing charts, reviewing labs, reviewing imaging, discussion with RN. 07/18/2021: Afebrile, no acute events overnight. On vent with FiO2 100%, PEEP 12. Will continue meropenem, Zyvox, and micafungin. Very critically ill, poor prognosis. Critical care time 30 minutes spent reviewing charts, reviewing labs, reviewing imaging, discussion with RN. 07/17/2021: Patient remains in ICU on vent with FiO2 100%, PEEP 12. Continue meropenem, Zyvox, and micafungin, per ID. Has been made DNR. Extremely critically ill. Critical care time 30 minutes spent reviewing charts, reviewing labs, reviewing imaging, discussed with RN. 07/16/2021 Patient seen and examined in the ICU Has OG feeds running at 40 cc an hour Still on the vent Pressure control 40 with 100% FiO2 and 12 of PEEP Her family is present I spent quite a bit of time discussing her prognosis with the family Currently sedated with Precedex propofol fentanyl Versed and also on IV paralytic (vecuronium) Has SCDs in place Has a rectal bag Has Mccall bedside drainage Chart reviewed Discussed with RN She remains extremely critically ill I am concerned she may not survive 07/15/2021 Patient seen and examined in the ICU She remains on the vent Pressure control of 40 with 100% FiO2 and 12 of PEEP rate of 20 OG feeds at 40 cc an hour Has rectal bag Mccall to bedside drainage She has SCDs on Sedated with propofol Precedex fentanyl Versed Also on IV vecuronium Has IV microfungi and hanging Discussed with RN Chart reviewed She remains extremely critically ill 07/14/2021 Patient seen and examined in the ICU She remains mechanically ventilated Pressure control with 40/1% FiO2 and 12 of PEEP and a rate of 20 Discussed with RN Chart reviewed Mccall bedside drainage Rectal bag in place She is still very critically ill 07/13/2021 patient seen and examined in the ICU she is still on the vent volume control of 40 with 100% FiO2 a rate of 20 and 12 of PEEP sedated with Precedex fentanyl and Versed has Mccall to bedside drainage rectal bag in place chart reviewed discussed with RN she remains extremely critically ill 07/12/2021 Patient seen and examined in the ICU Chart reviewed Discussed with RN Patient's white count has bumped up to 28,000 Currently on pressure support with 40 cm/h2o 100% FiO2 12 of PEEP and satting 81% She remains critically ill Ms Pierce is a transfer from [facility] in [facility], 40-year-old female with past medical history of diabetes, hypertension, dyslipidemia and morbid obesity who complains of shortness of breath 1 week ago and went to urgent care and found out that she was positive for Covid. She came in at 5:00 in the morning at [facility] is very hypoxic and was found to be her oxygen saturation was 68% she was put on a nonrebreather 15 L and she was improved to 90 to 93%. Patient is ite-[id number]-mthtylob. Patient is a poor historian. She does not know what kind of medication she takes for her medical history. 06/15: In the ICU. She was face time talking with family members. She was still on nonrebreather. Pulmonary consulted. 06/16: On Vapotherm. No major complaints. 06/17: Remains on Vapotherm although O2 requirement decreasing. Continue current plan. 06/18: On 40 L Vapotherm and now requiring NRB in addition. Afebrile and on broad-spectrum antibiotics. Remdesivir finishes today. 06/19: Intubated overnight in ICU. Afebrile. Currently breathing FiO2 100%. Completed remdesivir. We will continue IV steroids and antibiotics. 06/20: Low-grade fever overnight (T-max 99.7 F). Remains on vent, FiO2 90%, PEEP 10. Continue treatment with IV steroids and antibiotics. 06/21: Afebrile. On vent with FiO2 80%, PEEP 10. Cont treatment with antibiotics steroids total of 10 day course (steroid taper to begin 06/24). 06/22: Afebrile. Remains on ventilator with FiO2 70%, PEEP 10. Completed remdesivir. Continue antibiotics, steroids with slow taper. 06/23: Afebrile. On vent with FiO2 of 70, PEEP 10. Continue antibiotics for diffuse bilateral opacities. Continue steroids with slow taper 06/24: Afebrile. On vent with FiO2 60%, PEEP 9. Continue antibiotics. Today is day 10 of steroids; will begin Solu-Medrol taper tomorrow. 06/25: On vent with FiO2 65, PEEP 9. Afebrile. Completed 10 days of steroids; will begin Solu-Medrol taper today at 60 mg twice daily. 06/26: Intubated and sedated vent at 20/450/70/9. Insulin dose to 10 units twice daily. Solu-Medrol decreased to 40 mg daily. Cont with IV Lasix 06/27: Intubated and sedated. Vent settings at assist control at saturating 97%. Vent settings set at 16/80/9. ABG at 7.4 8/43/58/32. 06/28: No acute events overnight. Patient continues to be intubated and sedated. Saturating 90% on assist control with vent settings of 16/80/9. 06/29: No acute events overnight patient saturating 98% on vent settings of 10/80/9. 06/30: Patient did have hypotensive episode during the day which required a 500 NS bolus. Possibly needing vasopressors. pressure support/80/9. 07/01: No acute events overnight. Patient saturating 99% on vent settings of 14 pressure support/80/9. Urine output of 3.6 L in the last 24 hours. 07/02: Paralyzed for vent dysynchrony. Saturating 100% on 14/70/9. Fever of 101.1 this morning. 07/03: Febrile 101.1 F. 70% FiO2 and 9 PEEP. Still requiring vecuronium for vent dyssynchrony. ID consulted for sepsis, ?VAP 07/04: T-max 102.6 F last 24 hours, afebrile overnight. Peripheral culture and culture from PICC and sputum and urine culture obtained. Now on meropenem and Zyvox. More hypoxic, ABG 7.4 57/48, requiring FiO2 90% PEEP of 9 07/05: Afebrile. ABG 7.3/66/60, FiO2 100% PEEP of 12. Sputum and blood cx proteus mirabilis. Urine with some yeast. Daughter bedside this morning noted she is thinking of withdrawing care. D/w patient's sister and nephew bedside patient has been aggressively cared for cont current care. 07/06: Afebrile overnight. Sedated on ventilator FiO2 100% PEEP 12, O2 saturation 90% on pulse oximetry, still requiring vecuronium for vent dyssynchrony. Labs pending. 07/07: Afebrile. Hb 9.4, ABG 2.97/65.8/54.7. Peak pressures over 50s pressure control currently paralyzed. Lasix on hold received albumin. Still requiring Levophed. CT abdomen pelvis pending. 07/08: Febrile to 100.6 F overnight. Vecuronium wean attempted and significantly dyssynchrony. Still requiring Levophed support. FiO2 100% 12 peak pressures in the 50s. Afebrile overnight. More hypoxic overnight, I:E ratio 2-1, paralyzed on vecuronium for dyssynchrony. FiO2 100% PEEP 12. WBC 10, Hb 8.1, platelets 314. Met with daughter, Lala, bedside and sister over the phone the continued decline and grim prognosis and they have requested DNR. 07/10/2021: Patient seen and examined in ICU. On pressure control of 40 with a rate of 20, 100% FiO2, and a PEEP of 12. SCD for DVT prophylaxis. Mccall to BSD. Rectal bag present. OG set at 40cc per hour. Sedated with fentanyl, propofol, and versed. On vecuronium drip. Triple lumen PICC line present on right arm. O2 saturation is still only 79%. Chest x-ray today showed stable life support devices and stable diffuse bilateral opacities. Discussed with RN. Chart reviewed. 07/11/2021 Patient seen and examined in the ICU He is still mechanically ventilated On pressure control with 100% FiO2 Mccall to BSD Rectal bag still present Sedated with propofol fentanyl and Versed Also has as needed vecuronium Her daughter is present I reviewed the case with her daughter extensively Chart reviewed Discussed with RN Patient is still critically ill Vitals/I&O Vitals/I&O: Vital Signs Date Time Temp Pulse Resp B/P (MAP) Pulse Ox O2 Delivery O2 Flow Rate FiO2 07/20/21 10:00 100 20 112/64 (80) 84 Ventilator 07/20/21 08:00 100.2 100.2 I & O 07/19/21 07/19/21 07/20/21 15:00 23:00 07:00 Intake Total 640 ml 2507 ml 1030 ml Output Total 3450 ml 450 ml 230 ml Balance -2810 ml 2057 ml 800 ml Physical Exam Physical Exam: GENERAL: Sedated, orally intubated female, not in distress. HEENT: Both pupils are round and reacting. No conjunctival lesion. Mouth cannot be visualized, has orally intubated. NECK: Supple, no JVP, no lymphadenopathy. LUNGS: Clear. HEART: S1, S2 regular. ABDOMEN: Soft, nontender, no organomegaly. EXTREMITIES: No edema, cyanosis. SKIN: Unremarkable. NEUROLOGIC: The patient is sedated, intubated, neurologically unable to assess. General: No acute distress, Other (Intubated and sedated) Heart: Regular rate, Normal S1, Normal S2 Lungs: Crackles Abdomen: Normal bowel sounds, Soft Extremities: No clubbing, No edema, Normal pulses Skin: No rashes, No significant lesion Labs Labs: Laboratory Tests Test 07/19/21 11:22 07/19/21 17:30 07/19/21 20:57 07/19/21 23:43 Glucose (Fingerstick) 169 mg/dL (70-99) 133 mg/dL (70-99) 143 mg/dL (70-99) 148 mg/dL (70-99) Test 07/20/21 04:35 07/20/21 05:23 07/20/21 05:30 Sodium Level 140 mmol/L (136-145) Potassium Level 3.9 mmol/L (3.5-5.1) Chloride Level 97 mmol/L (98-107) Carbon Dioxide Level 37 mmol/L (21-32) Anion Gap 6 (6-14) Blood Urea Nitrogen 6 mg/dL (7-20) Creatinine 0.3 mg/dL (0.6-1.0) Estimated GFR (Cockcroft-Gault) 246.4 Glucose Level 140 mg/dL (70-99) Calcium Level 8.5 mg/dL (8.5-10.1) Glucose (Fingerstick) 135 mg/dL (70-99) White Blood Count 10.8 x10^3/uL (4.0-11.0) Red Blood Count 3.35 x10^6/uL (3.50-5.40) Hemoglobin 8.5 g/dL (12.0-15.5) Hematocrit 26.2 % (36.0-47.0) Mean Corpuscular Volume 78 fL (79-100) Mean Corpuscular Hemoglobin 25 pg (25-35) Mean Corpuscular Hemoglobin Concent 33 g/dL (31-37) Red Cell Distribution Width 22.4 % (11.5-14.5) Platelet Count 502 x10^3/uL (140-400) Neutrophils (%) (Auto) 75 % (31-73) Lymphocytes (%) (Auto) 16 % (24-48) Monocytes (%) (Auto) 6 % (0-9) Eosinophils (%) (Auto) 2 % (0-3) Basophils (%) (Auto) 1 % (0-3) Neutrophils # (Auto) 8.1 x10^3/uL (1.8-7.7) Lymphocytes # (Auto) 1.7 x10^3/uL (1.0-4.8) Monocytes # (Auto) 0.7 x10^3/uL (0.0-1.1) Eosinophils # (Auto) 0.2 x10^3/uL (0.0-0.7) Basophils # (Auto) 0.1 x10^3/uL (0.0-0.2) Comment Review of Relevant I have reviewed the following items man (where applicable) has been applied. Justifications for Admission Other Justification Acute hypoxic respiratory failure and Covid pneumonia CLAUDIO BORJA MD Jul 20, 2021 11:19
--- NOTE | 2021-07-20 15:11 | NUR ---
Wound Care: Patient remains too unstable to turn or assess for wound care. Spoke with RN and we will attempt again on 07/21/21.
[2021-07-20] MEDS: ACETAMINOPHEN 325 MG TABLET. PO PRN (16:23)
[2021-07-20] MEDS: fentaNYL HIGH DOSE PCA 55 ML IV PRN (22:55)
[2021-07-21] VITALS (24 sets, daily range): BP systolic 95–114; BP diastolic 54–75
[2021-07-21] MEDS: DEXMEDETOMIDINE 400 MCG in IV NORMAL SALINE 100ML 96 ML IV PRN ×9 (01:09→23:35)
[2021-07-21] MEDS: PROPOFOL 100 ML IV PRN ×8 (02:17→22:30)
[2021-07-21] MEDS: NORCURON - VECURONIUM 50 MG in IV NORMAL SALINE 50ML 50 ML IV PRN ×5 (04:10→22:32)
[2021-07-21] MEDS: MIDAZOLAM 100mg/100ml NS BAG 100 ML IV PRN ×3 (04:11→21:26)
[2021-07-21] MEDS: INSULIN LISPRO 300 UNITS/3 ML VIAL. SQ SCH ×4 (05:45→16:26)
[2021-07-21] MEDS: MEROPENEM 1 GM in IV NORMAL SALINE 100ML 100 ML IV SCH ×3 (05:46→21:26)
--- NOTE | 2021-07-21 06:42 | PDOC ---
[employer] PROGRESS NOTE Date of Service DOS: DATE: 07/21/21 TIME: 06:40 Chief Complaint Chief Complaint Acute hypoxic respiratory failure requiring BiPAP and subsequent intubation - due to COVID 19 with ARDS COVID-19 pneumonia Morbid obesity History of diabetes mellitus type 2 History of hypertension Severe malnutrition Septic shock Gram negative bacteremia - proteus History of Present Illness History of Present Illness 07/21/2021: Low-grade fever overnight, T-max 99.9 F. On vent with FiO2 100%, PEEP 14. O2 saturations remained mid to low 80s. Chest x-ray pending this afternoon. Continue with IV antibiotics, per ID. Critically ill with poor chance of survival. Critical care time 30 minutes spent reviewing charts, reviewing labs, reviewing imaging, discussion with RN. 07/20/2021: Tachycardic with low-grade fever this morning, T-max 100.2 F. On vent with FiO2 100%, PEEP 14. O2 saturations remain low 80s despite high vent settings. Critically ill, very poor prognosis. Continue with IV antibiotics, per ID. Critical care time 30 minutes spent reviewing charts, reviewing labs, reviewing imaging, discussion with RN. 07/19/2021: Afebrile. On ventilator with FiO2 100% and PEEP 13. O2 saturations are mid 80s despite high vent settings. Continue meropenem, Zyvox, and micaf ungin, per ID. Very critically ill, poor prognosis. Critical care time 30 minutes spent reviewing charts, reviewing labs, reviewing imaging, discussion with RN. 07/18/2021: Afebrile, no acute events overnight. On vent with FiO2 100%, PEEP 12. Will continue meropenem, Zyvox, and micafungin. Very critically ill, poor prognosis. Critical care time 30 minutes spent reviewing charts, reviewing labs, reviewing imaging, discussion with RN. 07/17/2021: Patient remains in ICU on vent with FiO2 100%, PEEP 12. Continue meropenem, Zyvox, and micafungin, per ID. Has been made DNR. Extremely critically ill. Critical care time 30 minutes spent reviewing charts, reviewing labs, reviewing imaging, discussed with RN. 07/16/2021 Patient seen and examined in the ICU Has OG feeds running at 40 cc an hour Still on the vent Pressure control 40 with 100% FiO2 and 12 of PEEP Her family is present I spent quite a bit of time discussing her prognosis with the family Currently sedated with Precedex propofol fentanyl Versed and also on IV paralytic (vecuronium) Has SCDs in place Has a rectal bag Has Mccall bedside drainage Chart reviewed Discussed with RN She remains extremely critically ill I am concerned she may not survive 07/15/2021 Patient seen and examined in the ICU She remains on the vent Pressure control of 40 with 100% FiO2 and 12 of PEEP rate of 20 OG feeds at 40 cc an hour Has rectal bag Mccall to bedside drainage She has SCDs on Sedated with propofol Precedex fentanyl Versed Also on IV vecuronium Has IV microfungi and hanging Discussed with RN Chart reviewed She remains extremely critically ill 07/14/2021 Patient seen and examined in the ICU She remains mechanically ventilated Pressure control with 40/1% FiO2 and 12 of PEEP and a rate of 20 Discussed with RN Chart reviewed Mccall bedside drainage Rectal bag in place She is still very critically ill 07/13/2021 patient seen and examined in the ICU she is still on the vent volume control of 40 with 100% FiO2 a rate of 20 and 12 of PEEP sedated with Precedex fentanyl and Versed has Mccall to bedside drainage rectal bag in place chart reviewed discussed with RN she remains extremely critically ill 07/12/2021 Patient seen and examined in the ICU Chart reviewed Discussed with RN Patient's white count has bumped up to 28,000 Currently on pressure support with 40 cm/h2o 100% FiO2 12 of PEEP and satting 81% She remains critically ill Ms Pierce is a transfer from [facility] in [facility], 40-year-old female with past medical history of diabetes, hypertension, dysli pidemia and morbid obesity who complains of shortness of breath 1 week ago and went to urgent care and found out that she was positive for Covid. She came in at 5:00 in the morning at [facility] is very hypoxic and was found to be her oxygen saturation was 68% she was put on a nonrebreather 15 L and she was improved to 90 to 93%. Patient is pba-[id number]. Patient is a poor historian. She does not know what kind of medication she takes for her medical history. 06/15: In the ICU. She was face time talking with family members. She was still on nonrebreather. Pulmonary consulted. 06/16: On Vapotherm. No major complaints. 06/17: Remains on Vapotherm although O2 requirement decreasing. Continue current plan. 06/18: On 40 L Vapotherm and now requiring NRB in addition. Afebrile and on broad-spectrum antibiotics. Remdesivir finishes today. 06/19: Intubated overnight in ICU. Afebrile. Currently breathing FiO2 100%. Completed remdesivir. We will continue IV steroids and antibiotics. 06/20: Low-grade fever overnight (T-max 99.7 F). Remains on vent, FiO2 90%, PEEP 10. Continue treatment with IV steroids and antibiotics. 06/21: Afebrile. On vent with FiO2 80%, PEEP 10. Cont treatment with antibiotics steroids total of 10 day course (steroid taper to begin 06/24). 06/22: Afebrile. Remains on ventilator with FiO2 70%, PEEP 10. Completed remdesivir. Continue antibiotics, steroids with slow taper. 06/23: Afebrile. On vent with FiO2 of 70, PEEP 10. Continue antibiotics for diffuse bilateral opacities. Continue steroids with slow taper 06/24: Afebrile. On vent with FiO2 60%, PEEP 9. Continue antibiotics. Today is day 10 of steroids; will begin Solu-Medrol taper tomorrow. 06/25: On vent with FiO2 65, PEEP 9. Afebrile. Completed 10 days of steroids; will begin Solu-Medrol taper today at 60 mg twice daily. 06/26: Intubated and sedated vent at 20/450/70/9. Insulin dose to 10 units twice daily. Solu-Medrol decreased to 40 mg daily. Cont with IV Lasix 06/27: Intubated and sedated. Vent settings at assist control at saturating 97%. Vent settings set at 16/80/9. ABG at 7.4 /58/32. 06/28: No acute events overnight. Patient continues to be intubated and sedated. Saturating 90% on assist control with vent settings of 16/80/9. 06/29: No acute events overnight patient saturating 98% on vent settings of 10/80/9. 06/30: Patient did have hypotensive episode during the day which required a 500 NS bolus. Possibly needing vasopressors. pressure support/80/9. 07/01: No acute events overnight. Patient saturating 99% on vent settings of 14 pressure support/80/9. Urine output of 3.6 L in the last 24 hours. 07/02: Paralyzed for vent dysynchrony. Saturating 100% on /9. Fever of 101.1 this morning. 07/03: Febrile 101.1 F. 70% FiO2 and 9 PEEP. Still requiring vecuronium for vent dyssynchrony. ID consulted for sepsis, ?VAP 07/04: T-max 102.6 F last 24 hours, afebrile overnight. Peripheral culture and culture from PICC and sputum and urine culture obtained. Now on meropenem and Zyvox. More hypoxic, ABG 7.4 57/48, requiring FiO2 90% PEEP of 9 07/05: Afebrile. ABG 7.3/66/60, FiO2 100% PEEP of 12. Sputum and blood cx proteus mirabilis. Urine with some yeast. Daughter bedside this morning noted she is thinking of withdrawing care. D/w patient's sister and nephew bedside patient has been aggressively cared for cont current care. 07/06: Afebrile overnight. Sedated on ventilator FiO2 100% PEEP 12, O2 saturation 90% on pulse oximetry, still requiring vecuronium for vent dyssynchrony. Labs pending. 07/07: Afebrile. Hb 9.4, ABG 2.97/65.8/54.7. Peak pressures over 50s pressure control currently paralyzed. Lasix on hold received albumin. Still requiring Levophed. CT abdomen pelvis pending. 07/08: Febrile to 100.6 F overnight. Vecuronium wean attempted and significantly dyssynchrony. Still requiring Levophed support. FiO2 100% 12 peak pressures in the 50s. Afebrile overnight. More hypoxic overnight, I:E ratio 2-1, paralyzed on vecuronium for dyssynchrony. FiO2 100% PEEP 12. WBC 10, Hb 8.1, platelets 314. Met with daughter, Lala, bedside and sister over the phone the continued decline and grim prognosis and they have requested DNR. 07/10/2021: Patient seen and examined in ICU. On pressure control of 40 with a rate of 20, 100% FiO2, and a PEEP of 12. SCD for DVT prophylaxis. Mccall to BSD. Rectal bag present. OG set at 40cc per hour. Sedated with fentanyl, propofol, and versed. On vecuronium drip. Triple lumen PICC line present on right arm. O2 saturation is still only 79%. Chest x-ray today showed stable life support devices and stable diffuse bilateral opacities. Discussed with RN. Chart reviewed. 07/11/2021 Patient seen and examined in the ICU He is still mechanically ventilated On pressure control with 100% FiO2 Mccall to BSD Rectal bag still present Sedated with propofol fentanyl and Versed Also has as needed vecuronium Her daughter is present I reviewed the case with her daughter extensively Chart reviewed Discussed with RN Patient is still critically ill Vitals/I&O Vitals/I&O: Vital Signs Date Time Temp Pulse Resp B/P (MAP) Pulse Ox O2 Delivery O2 Flow Rate FiO2 07/21/21 06:00 72 20 113/68 (83) 82 Ventilator 07/21/21 04:00 99.0 99.0 07/20/21 23:48 40.0 I & O 07/20/21 07/20/21 07/21/21 15:00 23:00 07:00 Intake Total 340 ml 2731 ml 2990 ml Output Total 2430 ml 350 ml 375 ml Balance -2090 ml 2381 ml 2615 ml Physical Exam Physical Exam: GENERAL: Sedated, orally intubated female, not in distress. HEENT: Both pupils are round and reacting. No conjunctival lesion. Mouth cannot be visualized, has orally intubated. NECK: Supple, no JVP, no lymphadenopathy. LUNGS: Clear. HEART: S1, S2 regular. ABDOMEN: Soft, nontender, no organomegaly. EXTREMITIES: No edema, cyanosis. SKIN: Unremarkable. NEUROLOGIC: The patient is sedated, intubated, neurologically unable to assess. General: No acute distress, Other (Intubated and sedated) Heart: Regular rate, Normal S1, Normal S2 Lungs: Crackles Abdomen: Normal bowel sounds, Soft Extremities: No clubbing, No edema, Normal pulses Skin: No rashes, No significant lesion Labs Labs: Laboratory Tests Test 07/20/21 11:44 07/20/21 17:46 07/20/21 20:55 07/21/21 00:07 Glucose (Fingerstick) 147 mg/dL (70-99) 142 mg/dL (70-99) 138 mg/dL (70-99) 162 mg/dL (70-99) Test 07/21/21 05:44 Glucose (Fingerstick) 133 mg/dL (70-99) Comment Review of Relevant I have reviewed the following items man (where applicable) has been applied. Justifications for Admission Other Justification Acute hypoxic respiratory failure and Covid pneumonia CLAUDIO BORJA MD Jul 21, 2021 06:42
[2021-07-21 06:44] LABS: BASO # 0.2 x10^3/uL (0.0-0.2); BASO % 2 % (0-3); EOS # 0.3 x10^3/uL (0.0-0.7); EOS % 3 % (0-3); HEMOGLOBIN 8.5 g/dL (12.0-15.5); LYMPH # 1.8 x10^3/uL (1.0-4.8); LYMPH % 16 % (24-48); MEAN CORPUSCULAR HEMOGLOBIN 26 pg (25-35); MEAN CORPUSCULAR HGB CONC 33 g/dL (31-37); MEAN CORPUSCULAR VOLUME 79 fL (79-100); MONO # 0.7 x10^3/uL (0.0-1.1); MONO % 7 % (0-9); NEUT # 8.1 x10^3/uL (1.8-7.7); NEUT % 72 % (31-73); PLATELET COUNT 421 x10^3/uL (140-400); RED BLOOD COUNT 3.29 x10^6/uL (3.50-5.40); RED CELL DISTRIBUTION WIDTH 22.2 % (11.5-14.5); WHITE BLOOD COUNT 11.1 x10^3/uL (4.0-11.0)
[2021-07-21 06:55] LABS: CALCIUM 8.1 mg/dL (8.5-10.1); CREATININE 0.3 mg/dL (0.6-1.0); GFR 246.4; POTASSIUM 3.8 mmol/L (3.5-5.1)
[2021-07-21] MEDS: PANTOPRAZOLE IV PUSH 40 MG VIAL. IVP SCH ×2 (07:37→07:41)
[2021-07-21] MEDS: FUROSEMIDE 40 MG/4 ML VIAL. IVP SCH (07:40)
--- NOTE | 2021-07-21 07:41 | PDOC ---
Infectious Disease Note Subjective Subjective Intubated/ sedated ROS ROS No nausea vomiting diarrhea low-grade fever Vital Sign Vital Signs Vital Signs Date Time Temp Pulse Resp B/P (MAP) Pulse Ox O2 Delivery O2 Flow Rate FiO2 07/21/21 07:31 76 Ventilator 07/21/21 06:00 72 20 113/68 (83) 07/21/21 04:00 99.0 99.0 07/20/21 23:48 40.0 Physical Exam PHYSICAL EXAM GENERAL: Sedated, orally intubated female, not in distress. HEENT: Both pupils are round and reacting. No conjunctival lesion. Mouth cannot be visualized, has orally intubated. NECK: Supple, no JVP, no lymphadenopathy. LUNGS: Clear. HEART: S1, S2 regular. ABDOMEN: Soft, nontender, no organomegaly. EXTREMITIES: No edema, cyanosis. SKIN: Unremarkable. NEUROLOGIC: The patient is sedated, intubated, neurologically unable to assess. Labs Lab Laboratory Tests Test 07/20/21 11:44 07/20/21 17:46 07/20/21 20:55 07/21/21 00:07 Glucose (Fingerstick) 147 mg/dL (70-99) 142 mg/dL (70-99) 138 mg/dL (70-99) 162 mg/dL (70-99) Test 07/21/21 05:44 07/21/21 05:45 Glucose (Fingerstick) 133 mg/dL (70-99) Sodium Level 139 mmol/L (136-145) Potassium Level 3.8 mmol/L (3.5-5.1) Chloride Level 97 mmol/L (98-107) Carbon Dioxide Level 41 mmol/L (21-32) Anion Gap 1 (6-14) Blood Urea Nitrogen 8 mg/dL (7-20) Creatinine 0.3 mg/dL (0.6-1.0) Estimated GFR (Cockcroft-Gault) 246.4 Glucose Level 138 mg/dL (70-99) Calcium Level 8.1 mg/dL (8.5-10.1) Micro Recent blood cultures negative Sputum culture is negative Objective Assessment 1. Fever 2. COVID-19 infection. 3. Pulmonary infiltrates. 4. Respiratory failure. 5. Leukocytosis. 6. Morbid obesity. 7 G neg camilo bacteremia Proteus 8. Urine culture 8/31 and 07/12 C albicans Plan Plan of Care Continue meropenem supportive care CT abd and pelvis unable to do Now DNR Prognosis poor ROBERTO HADDAD MD Jul 21, 2021 07:41
--- NOTE | 2021-07-21 08:02 | RAD ---
EXAMINATION: Chest radiograph. VIEWS: Single view COMPARISON: 07/19/2021 INDICATION:40 years, Female, respiratory failure/ARDS. FINDINGS: Stable cardiomediastinal silhouette. Essentially unchanged diffuse bilateral airspace opacities. No p leural effusion or pneumothorax. No acute osseous process. Endotracheal tube tip locates approximatel y 5.6 cm proximal to the narcisa. Enteric tube tip is off image, presumably in the stomach. Right PICC line remains unchanged in position. IMPRESSION: Essentially unchanged diffuse bilateral airspace opacities. Electronically signed by: Ronan Castillo MD (07/21/2021 8:00 AM) [id number]
[2021-07-21] MEDS: ENOXAPARIN 40 MG/0.4 ML SYRINGE. SQ SCH ×2 (09:00→21:22)
[2021-07-21] MEDS: LISINOPRIL 5 MG TABLET. PO SCH (09:00)
[2021-07-21] MEDS: INSULIN GLARGINE SYRINGE. SQ SCH ×2 (09:08→21:25)
--- NOTE | 2021-07-21 09:25 | PDOC ---
PULMONARY PROGRESS NOTES DATE: 07/21/21 TIME: 09:21 Subjective Patient continues to have persistent hypoxia despite increasing the PEEP to 14. She is currently on pressure control inverse ratio ventilation. Remains on vent support 100% Oxygen saturations in the 70s. Vitals Vital Signs Date Time Temp Pulse Resp B/P (MAP) Pulse Ox O2 Delivery O2 Flow Rate FiO2 07/21/21 09:00 74 103/55 07/21/21 07:31 76 Ventilator 07/21/21 06:00 20 07/21/21 04:00 99.0 99.0 07/20/21 23:48 40.0 Comments ros unable to obtain on vent sedated Lungs: Crackles Cardiovascular: S1 Abdomen: Soft Extremities: No Edema Skin: Warm Labs Laboratory Tests Test 07/19/21 11:22 07/19/21 17:30 07/19/21 20:57 07/19/21 23:43 Glucose (Fingerstick) 169 mg/dL (70-99) 133 mg/dL (70-99) 143 mg/dL (70-99) 148 mg/dL (70-99) Test 07/20/21 04:35 07/20/21 05:23 07/20/21 05:30 07/20/21 11:44 Sodium Level 140 mmol/L (136-145) Potassium Level 3.9 mmol/L (3.5-5.1) Chloride Level 97 mmol/L (98-107) Carbon Dioxide Level 37 mmol/L (21-32) Anion Gap 6 (6-14) Blood Urea Nitrogen 6 mg/dL (7-20) Creatinine 0.3 mg/dL (0.6-1.0) Estimated GFR (Cockcroft-Gault) 246.4 Glucose Level 140 mg/dL (70-99) Calcium Level 8.5 mg/dL (8.5-10.1) Glucose (Fingerstick) 135 mg/dL (70-99) 147 mg/dL (70-99) White Blood Count 10.8 x10^3/uL (4.0-11.0) Red Blood Count 3.35 x10^6/uL (3.50-5.40) Hemoglobin 8.5 g/dL (12.0-15.5) Hematocrit 26.2 % (36.0-47.0) Mean Corpuscular Volume 78 fL (79-100) Mean Corpuscular Hemoglobin 25 pg (25-35) Mean Corpuscular Hemoglobin Concent 33 g/dL (31-37) Red Cell Distribution Width 22.4 % (11.5-14.5) Platelet Count 502 x10^3/uL (140-400) Neutrophils (%) (Auto) 75 % (31-73) Lymphocytes (%) (Auto) 16 % (24-48) Monocytes (%) (Auto) 6 % (0-9) Eosinophils (%) (Auto) 2 % (0-3) Basophils (%) (Auto) 1 % (0-3) Neutrophils # (Auto) 8.1 x10^3/uL (1.8-7.7) Lymphocytes # (Auto) 1.7 x10^3/uL (1.0-4.8) Monocytes # (Auto) 0.7 x10^3/uL (0.0-1.1) Eosinophils # (Auto) 0.2 x10^3/uL (0.0-0.7) Basophils # (Auto) 0.1 x10^3/uL (0.0-0.2) Test 07/20/21 17:46 07/20/21 20:55 07/21/21 00:07 07/21/21 05:44 Glucose (Fingerstick) 142 mg/dL (70-99) 138 mg/dL (70-99) 162 mg/dL (70-99) 133 mg/dL (70-99) Test 07/21/21 05:45 White Blood Count 11.1 x10^3/uL (4.0-11.0) Red Blood Count 3.29 x10^6/uL (3.50-5.40) Hemoglobin 8.5 g/dL (12.0-15.5) Hematocrit 26.0 % (36.0-47.0) Mean Corpuscular Volume 79 fL (79-100) Mean Corpuscular Hemoglobin 26 pg (25-35) Mean Corpuscular Hemoglobin Concent 33 g/dL (31-37) Red Cell Distribution Width 22.2 % (11.5-14.5) Platelet Count 421 x10^3/uL (140-400) Neutrophils (%) (Auto) 72 % (31-73) Lymphocytes (%) (Auto) 16 % (24-48) Monocytes (%) (Auto) 7 % (0-9) Eosinophils (%) (Auto) 3 % (0-3) Basophils (%) (Auto) 2 % (0-3) Neutrophils # (Auto) 8.1 x10^3/uL (1.8-7.7) Lymphocytes # (Auto) 1.8 x10^3/uL (1.0-4.8) Monocytes # (Auto) 0.7 x10^3/uL (0.0-1.1) Eosinophils # (Auto) 0.3 x10^3/uL (0.0-0.7) Basophils # (Auto) 0.2 x10^3/uL (0.0-0.2) Sodium Level 139 mmol/L (136-145) Potassium Level 3.8 mmol/L (3.5-5.1) Chloride Level 97 mmol/L (98-107) Carbon Dioxide Level 41 mmol/L (21-32) Anion Gap 1 (6-14) Blood Urea Nitrogen 8 mg/dL (7-20) Creatinine 0.3 mg/dL (0.6-1.0) Estimated GFR (Cockcroft-Gault) 246.4 Glucose Level 138 mg/dL (70-99) Calcium Level 8.1 mg/dL (8.5-10.1) Laboratory Tests Test 07/20/21 11:44 07/20/21 17:46 07/20/21 20:55 07/21/21 00:07 Glucose (Fingerstick) 147 mg/dL (70-99) 142 mg/dL (70-99) 138 mg/dL (70-99) 162 mg/dL (70-99) Test 07/21/21 05:44 07/21/21 05:45 Glucose (Fingerstick) 133 mg/dL (70-99) White Blood Count 11.1 x10^3/uL (4.0-11.0) Red Blood Count 3.29 x10^6/uL (3.50-5.40) Hemoglobin 8.5 g/dL (12.0-15.5) Hematocrit 26.0 % (36.0-47.0) Mean Corpuscular Volume 79 fL (79-100) Mean Corpuscular Hemoglobin 26 pg (25-35) Mean Corpuscular Hemoglobin Concent 33 g/dL (31-37) Red Cell Distribution Width 22.2 % (11.5-14.5) Platelet Count 421 x10^3/uL (140-400) Neutrophils (%) (Auto) 72 % (31-73) Lymphocytes (%) (Auto) 16 % (24-48) Monocytes (%) (Auto) 7 % (0-9) Eosinophils (%) (Auto) 3 % (0-3) Basophils (%) (Auto) 2 % (0-3) Neutrophils # (Auto) 8.1 x10^3/uL (1.8-7.7) Lymphocytes # (Auto) 1.8 x10^3/uL (1.0-4.8) Monocytes # (Auto) 0.7 x10^3/uL (0.0-1.1) Eosinophils # (Auto) 0.3 x10^3/uL (0.0-0.7) Basophils # (Auto) 0.2 x10^3/uL (0.0-0.2) Sodium Level 139 mmol/L (136-145) Potassium Level 3.8 mmol/L (3.5-5.1) Chloride Level 97 mmol/L (98-107) Carbon Dioxide Level 41 mmol/L (21-32) Anion Gap 1 (6-14) Blood Urea Nitrogen 8 mg/dL (7-20) Creatinine 0.3 mg/dL (0.6-1.0) Estimated GFR (Cockcroft-Gault) 246.4 Glucose Level 138 mg/dL (70-99) Calcium Level 8.1 mg/dL (8.5-10.1) Medications Active Scripts Medications Dose Route/Sig Max Daily Dose Days Date Category Cyclobenzaprine Hcl 10 Mg Tablet 10 Mg PO TID 06/15/21 Reported Meloxicam 15 Mg Tablet 15 Mg PO DAILY 06/15/21 Reported Fluticasone Propionate Nasal [place] (Fluticasone Propionate) 16 Gm [place].susp 1 [place] NS DAILY 06/15/21 Reported Loratadine 10 Mg Tablet 10 Mg PO DAILY 06/15/21 Reported Furosemide 20 Mg Tablet 20 Mg PO DAILY 06/15/21 Reported Gabapentin (Gabapentin) 300 Mg Capsule 300 Mg PO TID 06/15/21 Reported Gabapentin (Gabapentin) 300 Mg Capsule 300 Mg PO TID 06/15/21 Reported Lisinopril 5 Mg Tablet 1 Tab PO DAILY 06/15/21 Reported Metformin Hcl 500 Mg Tablet 500 Mg PO BIDWMEALS 06/15/21 Reported Ozempic (Semaglutide) 0.25 Mg/0.2 Ml Pen.injctr 0.25 Mg SQ WEEKLY 06/15/21 Reported Comments Chest x-ray reviewed 07/21/2021. Diffuse interstitial infiltrates with no significant pleural effusion. This is compatible with ARDS. Chest x-ray reviewed 07/19/2021. Diffuse interstitial infiltrates with total white out both lungs consistent with ARDS Chest x-ray reviewed 07/17/2021. Diffuse infiltrates consistent with ARDS with mild worsening CXR 07/14/21 IMPRESSION: Diffuse pulmonary opacities bilaterally without interval improvement. Impression . 1. Acute hypoxic respiratory failure secondary to ARDS/COVID-19 infection, worsening intubated 06/19/21. Continue to have severe ARDS. With severe persistent hypoxia despite increasing PEEP up to 14. 2. Abnormal CT of chest secondary to COVID-19 infection/ARDS 3. Diabetes type 2 with hyperglycemia 4. Hypotension, secondary to sepsis--resolved 5. Hyperlipdemia 6. Obesity 7. sepsis with Proteus mirabilis bacteremia and pneumonia 8. Proteus mirabilis in the sputum. Repeat sputum culture negative. 9 staph in the blood, no new positive cultures on latest cultures Plan . Updated 07/21/21 Continue current vent support, currently PC mode, inverse ratio ventilation and 100% increase PEEP of 14. Oxygen saturation remained in the mid to high 70s. Patient's chances of survival are very minimal. Would not escalate any further PEEP. Chest x-ray without any evidence of barotrauma. Continue ABX per ID Follow CXR/ ABG --as needed. PT. is DNR DVT/GI PPX D/W RN and RT Very poor prognosis, minimal chance of survival. We will continue present care. d/w daughter in detail . Explained to her poor prognosis and unlikely chance of survival. She understands that. Continue present care. Updated 07/20/21 Continue current vent support, currently PC mode, inverse ratio ventilation and 100% increase PEEP of 14. Oxygen saturation remained in the mid to high 80s. Patient's chances of survival are very minimal. Would not escalate any further PEEP. Chest x-ray without any evidence of barotrauma. Continue ABX per ID Follow CXR/ ABG --as needed. PT. is DNR DVT/GI PPX D/W RN and RT Very poor prognosis, minimal chance of survival. We will continue present care. d/w daughter in detail 07/19/2021. Explained to her poor prognosis and unlikely chance of survival. She understands that. Continue present care Updated 07/19/21 Continue current vent support, currently PC mode, inverse ratio ventilation and 100% increase PEEP of 14. Oxygen saturation remained in the mid to high 80s. Patient's chances of survival are very minimal. Would not escalate any further PEEP. Chest x-ray without any evidence of barotrauma. Continue ABX per ID Follow CXR/ ABG --as needed. PT. is DNR DVT/GI PPX D/W RN and RT Very poor prognosis, minimal chance of survival. We will continue present care. Will reach out to the family and informed them about the patient's critical condition addend: d/w daughter in detail Updated 07/18/21 Continue current vent support, currently PC mode and 100% increase PEEP to 13 today Avoid further barotrauma. Continue ABX per ID Follow CXR/ ABG --as needed. PT. is DNR DVT/GI PPX D/W RN and RT Very poor prognosis, minimal chance of survival. We will continue present care. Chest x-ray continues to have significant infiltrates bilaterally with mild worsening Updated 07/17/21 Continue current vent support, currently PC mode and 100% and PEEP of 12. Would not escalate PEEP any further. Continue ABX per ID Follow CXR/ ABG --as needed. PT. is now a DNR DVT/GI PPX D/W RN and RT Very poor prognosis, minimal chance of survival. We will continue present aggressive care. Chest x-ray continues to have significant infiltrates bilaterally with mild worsening Updated 07/16/21 Continue current vent support, currently PC mode and 100% and PEEP of 12 Would not escalate PEEP any further. Continue ABX per ID Follow CXR/ ABG --as needed. PT. is now a DNR DVT/GI PPX D/W RN and RT Very poor prognosis, minimal chance of survival. We will continue present aggressive care. Updated 07/15/21 Continue current vent support, currently PC mode and 100% and PEEP of 12 Would not escalate PEEP any further. Continue ABX per ID Follow CXR/ ABG --as needed. PT. is now a DNR DVT/GI PPX D/W RN and RT Very poor prognosis, likely not to survive Updated 07/14/21 Continue current vent support, currently PC mode and 100% and PEEP of 12 Continue ABX per ID Follow CXR/ ABG -- no changes today PT. is now a DNR DVT/GI PPX D/W RN and RT Very poor prognosis likely not to survive Updated 07/13 Continue current support Antibiotics per ID No significant improvement this past week Case discussed with family several days ago Family informed that patient may not survive Replace potassium Chest x-ray from 07/12 was reviewed 07/12 Continue current support Antibiotics per ID Long-term prognosis is poor NICOLETTE MORALES MD Jul 21, 2021 09:25
--- NOTE | 2021-07-21 09:45 | NUR ---
No change in condition. Recovery chances 'slim". High peeps and O2 needs w/o response to Rx.
--- NOTE | 2021-07-21 15:34 | NUR ---
Wound Care: Patient remains too unstable to turn or assess for wound care. Spoke with RAISSA Guzman and we will attempt again to see patient on 07/24/21.
--- NOTE | 2021-07-21 16:29 | NUR ---
7a-7p status: very little positive change this past shift. Desat episodes w extremely LONG periods reiquired for sats to return to 85-90( approx 4-6 H. Condition report to family. Strait talk on condition and prognosis report from M<D progress notes. Little if any overt positive change. Addendum: 07/21/21 at 1634 by Megan Christensen RN Amended: Links added.
[2021-07-21] MEDS: fentaNYL HIGH DOSE PCA 55 ML IV PRN (23:37)
[2021-07-22] VITALS (23 sets, daily range): BP systolic 91–167; BP diastolic 50–82
[2021-07-22] MEDS: PROPOFOL 100 ML IV PRN ×3 (00:51→10:30)
[2021-07-22] MEDS: NORCURON - VECURONIUM 50 MG in IV NORMAL SALINE 50ML 50 ML IV PRN ×3 (03:16→20:49)
[2021-07-22] MEDS: MIDAZOLAM 100mg/100ml NS BAG 100 ML IV PRN ×2 (03:19→11:09)
[2021-07-22] MEDS: DEXMEDETOMIDINE 400 MCG in IV NORMAL SALINE 100ML 96 ML IV PRN ×6 (03:37→21:46)
--- NOTE | 2021-07-22 05:10 | PDOC ---
PULMONARY PROGRESS NOTES DATE: 07/22/21 TIME: 05:10 Subjective Patient continues to have persistent hypoxia despite increasing the PEEP to 14. She is currently on pressure control inverse ratio ventilation. Remains on vent support 100% sat 89-90% sedated on versed, fentanyl, precedex, prop vec gtt Vitals Vital Signs Date Time Temp Pulse Resp B/P (MAP) Pulse Ox O2 Delivery O2 Flow Rate FiO2 07/22/21 04:25 98.9 76 20 112/58 (76) 92 Ventilator 98.9 07/22/21 00:08 40.0 Comments ros unable to obtain on vent sedated HEENT: Other (nc at perrl orally intubated nose clear neck no lad no thyromegaly) Lungs: Crackles Cardiovascular: S1, S2 Abdomen: Soft Extremities: No Edema Skin: Warm Labs Laboratory Tests Test 07/20/21 05:23 07/20/21 05:30 07/20/21 11:44 07/20/21 17:46 Glucose (Fingerstick) 135 mg/dL (70-99) 147 mg/dL (70-99) 142 mg/dL (70-99) White Blood Count 10.8 x10^3/uL (4.0-11.0) Red Blood Count 3.35 x10^6/uL (3.50-5.40) Hemoglobin 8.5 g/dL (12.0-15.5) Hematocrit 26.2 % (36.0-47.0) Mean Corpuscular Volume 78 fL (79-100) Mean Corpuscular Hemoglobin 25 pg (25-35) Mean Corpuscular Hemoglobin Concent 33 g/dL (31-37) Red Cell Distribution Width 22.4 % (11.5-14.5) Platelet Count 502 x10^3/uL (140-400) Neutrophils (%) (Auto) 75 % (31-73) Lymphocytes (%) (Auto) 16 % (24-48) Monocytes (%) (Auto) 6 % (0-9) Eosinophils (%) (Auto) 2 % (0-3) Basophils (%) (Auto) 1 % (0-3) Neutrophils # (Auto) 8.1 x10^3/uL (1.8-7.7) Lymphocytes # (Auto) 1.7 x10^3/uL (1.0-4.8) Monocytes # (Auto) 0.7 x10^3/uL (0.0-1.1) Eosinophils # (Auto) 0.2 x10^3/uL (0.0-0.7) Basophils # (Auto) 0.1 x10^3/uL (0.0-0.2) Test 07/20/21 20:55 07/21/21 00:07 07/21/21 05:44 07/21/21 05:45 Glucose (Fingerstick) 138 mg/dL (70-99) 162 mg/dL (70-99) 133 mg/dL (70-99) White Blood Count 11.1 x10^3/uL (4.0-11.0) Red Blood Count 3.29 x10^6/uL (3.50-5.40) Hemoglobin 8.5 g/dL (12.0-15.5) Hematocrit 26.0 % (36.0-47.0) Mean Corpuscular Volume 79 fL (79-100) Mean Corpuscular Hemoglobin 26 pg (25-35) Mean Corpuscular Hemoglobin Concent 33 g/dL (31-37) Red Cell Distribution Width 22.2 % (11.5-14.5) Platelet Count 421 x10^3/uL (140-400) Neutrophils (%) (Auto) 72 % (31-73) Lymphocytes (%) (Auto) 16 % (24-48) Monocytes (%) (Auto) 7 % (0-9) Eosinophils (%) (Auto) 3 % (0-3) Basophils (%) (Auto) 2 % (0-3) Neutrophils # (Auto) 8.1 x10^3/uL (1.8-7.7) Lymphocytes # (Auto) 1.8 x10^3/uL (1.0-4.8) Monocytes # (Auto) 0.7 x10^3/uL (0.0-1.1) Eosinophils # (Auto) 0.3 x10^3/uL (0.0-0.7) Basophils # (Auto) 0.2 x10^3/uL (0.0-0.2) Sodium Level 139 mmol/L (136-145) Potassium Level 3.8 mmol/L (3.5-5.1) Chloride Level 97 mmol/L (98-107) Carbon Dioxide Level 41 mmol/L (21-32) Anion Gap 1 (6-14) Blood Urea Nitrogen 8 mg/dL (7-20) Creatinine 0.3 mg/dL (0.6-1.0) Estimated GFR (Cockcroft-Gault) 246.4 Glucose Level 138 mg/dL (70-99) Calcium Level 8.1 mg/dL (8.5-10.1) Test 07/21/21 16:25 07/21/21 23:08 Glucose (Fingerstick) 139 mg/dL (70-99) 133 mg/dL (70-99) Laboratory Tests Test 07/21/21 05:44 07/21/21 05:45 07/21/21 16:25 07/21/21 23:08 Glucose (Fingerstick) 133 mg/dL (70-99) 139 mg/dL (70-99) 133 mg/dL (70-99) White Blood Count 11.1 x10^3/uL (4.0-11.0) Red Blood Count 3.29 x10^6/uL (3.50-5.40) Hemoglobin 8.5 g/dL (12.0-15.5) Hematocrit 26.0 % (36.0-47.0) Mean Corpuscular Volume 79 fL (79-100) Mean Corpuscular Hemoglobin 26 pg (25-35) Mean Corpuscular Hemoglobin Concent 33 g/dL (31-37) Red Cell Distribution Width 22.2 % (11.5-14.5) Platelet Count 421 x10^3/uL (140-400) Neutrophils (%) (Auto) 72 % (31-73) Lymphocytes (%) (Auto) 16 % (24-48) Monocytes (%) (Auto) 7 % (0-9) Eosinophils (%) (Auto) 3 % (0-3) Basophils (%) (Auto) 2 % (0-3) Neutrophils # (Auto) 8.1 x10^3/uL (1.8-7.7) Lymphocytes # (Auto) 1.8 x10^3/uL (1.0-4.8) Monocytes # (Auto) 0.7 x10^3/uL (0.0-1.1) Eosinophils # (Auto) 0.3 x10^3/uL (0.0-0.7) Basophils # (Auto) 0.2 x10^3/uL (0.0-0.2) Sodium Level 139 mmol/L (136-145) Potassium Level 3.8 mmol/L (3.5-5.1) Chloride Level 97 mmol/L (98-107) Carbon Dioxide Level 41 mmol/L (21-32) Anion Gap 1 (6-14) Blood Urea Nitrogen 8 mg/dL (7-20) Creatinine 0.3 mg/dL (0.6-1.0) Estimated GFR (Cockcroft-Gault) 246.4 Glucose Level 138 mg/dL (70-99) Calcium Level 8.1 mg/dL (8.5-10.1) Medications Active Scripts Medications Dose Route/Sig Max Daily Dose Days Date Category Cyclobenzaprine Hcl 10 Mg Tablet 10 Mg PO TID 06/15/21 Reported Meloxicam 15 Mg Tablet 15 Mg PO DAILY 06/15/21 Reported Fluticasone Propionate Nasal [place] (Fluticasone Propionate) 16 Gm Charlotte.susp 1 [place] NS DAILY 06/15/21 Reported Loratadine 10 Mg Tablet 10 Mg PO DAILY 06/15/21 Reported Furosemide 20 Mg Tablet 20 Mg PO DAILY 06/15/21 Reported Gabapentin (Gabapentin) 300 Mg Capsule 300 Mg PO TID 06/15/21 Reported Gabapentin (Gabapentin) 300 Mg Capsule 300 Mg PO TID 06/15/21 Reported Lisinopril 5 Mg Tablet 1 Tab PO DAILY 06/15/21 Reported Metformin Hcl 500 Mg Tablet 500 Mg PO BIDWMEALS 06/15/21 Reported Ozempic (Semaglutide) 0.25 Mg/0.2 Ml Pen.injctr 0.25 Mg SQ WEEKLY 06/15/21 Reported Comments Chest x-ray reviewed 07/21/2021. Diffuse interstitial infiltrates with no significant pleural effusion. This is compatible with ARDS. Chest x-ray reviewed 07/19/2021. Diffuse interstitial infiltrates with total white out both lungs consistent with ARDS Chest x-ray reviewed 07/17/2021. Diffuse infiltrates consistent with ARDS with mild worsening CXR 07/14/21 IMPRESSION: Diffuse pulmonary opacities bilaterally without interval improvement. Impression . 1. Acute hypoxic respiratory failure secondary to ARDS/COVID-19 infection, worsening intubated 06/19/21. Continue to have severe ARDS. With severe persistent hypoxia despite increasing PEEP up to 14. 2[address] Ab[address] CT of chest secondary to COVID-19 infection/ARDS 3. Diabetes type 2 with hyperglycemia 4. Hypotension, secondary to sepsis--resolved 5. Hyperlipdemia 6. Obesity 7. sepsis with Proteus mirabilis bacteremia and pneumonia 8. Proteus mirabilis in the sputum. Repeat sputum culture negative. 9 staph in the blood, no new positive cultures on latest cultures Plan . Updated 07/22/21 Continue current vent support, setting reviewed, currently PC mode, inverse ratio ventilation and 100% PEEP of 14. Oxygen saturation 89-90% Patient's chances of survival are very very low. Would not escalate any further PEEP. Chest x-ray without any evidence of barotrauma. Continue ABX per ID Follow CXR/ ABG --as needed. PT. is DNR DVT/GI PPX D/W RN and RT Very poor prognosis, minimal chance of survival. We will continue present care. dr foster d/w daughter in detail . Explained to her poor prognosis and unlikely chance of survival. She understands that. Continue present care. Updated 07/21/21 Continue current vent support, currently PC mode, inverse ratio ventilation and 100% increase PEEP of 14. Oxygen saturation remained in the mid to high 70s. Patient's chances of survival are very minimal. Would not escalate any further PEEP. Chest x-ray without any evidence of barotrauma. Continue ABX per ID Follow CXR/ ABG --as needed. PT. is DNR DVT/GI PPX D/W RN and RT Very poor prognosis, minimal chance of survival. We will continue present care. d/w daughter in detail . Explained to her poor prognosis and unlikely chance of survival. She understands that. Continue present care. Updated 07/20/21 Continue current vent support, currently PC mode, inverse ratio ventilation and 100% increase PEEP of 14. Oxygen saturation remained in the mid to high 80s. Patient's chances of survival are very minimal. Would not escalate any further PEEP. Chest x-ray without any evidence of barotrauma. Continue ABX per ID Follow CXR/ ABG --as needed. PT. is DNR DVT/GI PPX D/W RN and RT Very poor prognosis, minimal chance of survival. We will continue present care. d/w daughter in detail 07/19/2021. Explained to her poor prognosis and unlikely chance of survival. She understands that. Continue present care Updated 07/19/21 Continue current vent support, currently PC mode, inverse ratio ventilation and 100% increase PEEP of 14. Oxygen saturation remained in the mid to high 80s. Patient's chances of survival are very minimal. Would not escalate any further PEEP. Chest x-ray without any evidence of barotrauma. Continue ABX per ID Follow CXR/ ABG --as needed. PT. is DNR DVT/GI PPX D/W RN and RT Very poor prognosis, minimal chance of survival. We will continue present care. Will reach out to the family and informed them about the patient's critical condition addend: d/w daughter in detail Updated 07/18/21 Continue current vent support, currently PC mode and 100% increase PEEP to 13 today Avoid further barotrauma. Continue ABX per ID Follow CXR/ ABG --as needed. PT. is DNR DVT/GI PPX D/W RN and RT Very poor prognosis, minimal chance of survival. We will continue present care. Chest x-ray continues to have significant infiltrates bilaterally with mild worsening Updated 07/17/21 Continue current vent support, currently PC mode and 100% and PEEP of 12. Would not escalate PEEP any further. Continue ABX per ID Follow CXR/ ABG --as needed. PT. is now a DNR DVT/GI PPX D/W RN and RT Very poor prognosis, minimal chance of survival. We will continue present aggressive care. Chest x-ray continues to have significant infiltrates bilaterally with mild worsening Updated 07/16/21 Continue current vent support, currently PC mode and 100% and PEEP of 12 Would not escalate PEEP any further. Continue ABX per ID Follow CXR/ ABG --as needed. PT. is now a DNR DVT/GI PPX D/W RN and RT Very poor prognosis, minimal chance of survival. We will continue present aggressive care. Updated 07/15/21 Continue current vent support, currently PC mode and 100% and PEEP of 12 Would not escalate PEEP any further. Continue ABX per ID Follow CXR/ ABG --as needed. PT. is now a DNR DVT/GI PPX D/W RN and RT Very poor prognosis, likely not to survive Updated 07/14/21 Continue current vent support, currently PC mode and 100% and PEEP of 12 Continue ABX per ID Follow CXR/ ABG -- no changes today PT. is now a DNR DVT/GI PPX D/W RN and RT Very poor prognosis likely not to survive Updated 07/13 Continue current support Antibiotics per ID No significant improvement this past week Case discussed with family several days ago Family informed that patient may not survive Replace potassium Chest x-ray from 07/12 was reviewed 07/12 Continue current support Antibiotics per ID Long-term prognosis is poor ALANNAH CARTER MD Jul 22, 2021 05:10
[2021-07-22] MEDS: MEROPENEM 1 GM in IV NORMAL SALINE 100ML 100 ML IV SCH ×3 (06:00→20:59)
[2021-07-22] MEDS: INSULIN LISPRO 300 UNITS/3 ML VIAL. SQ SCH ×4 (06:00→18:00)
[2021-07-22 06:06] LABS: BASO # 0.2 x10^3/uL (0.0-0.2); BASO % 1 % (0-3); EOS # 0.7 x10^3/uL (0.0-0.7); EOS % 6 % (0-3); HEMOGLOBIN 8.4 g/dL (12.0-15.5); LYMPH # 1.6 x10^3/uL (1.0-4.8); LYMPH % 13 % (24-48); MEAN CORPUSCULAR HEMOGLOBIN 25 pg (25-35); MEAN CORPUSCULAR HGB CONC 32 g/dL (31-37); MEAN CORPUSCULAR VOLUME 78 fL (79-100); MONO # 0.6 x10^3/uL (0.0-1.1); MONO % 5 % (0-9); NEUT % 75 % (31-73); PLATELET COUNT 317 x10^3/uL (140-400); RED BLOOD COUNT 3.35 x10^6/uL (3.50-5.40); RED CELL DISTRIBUTION WIDTH 22.2 % (11.5-14.5)
[2021-07-22 06:15] LABS: BLOOD UREA NITROGEN 9 mg/dL (7-20); CALCIUM 8.3 mg/dL (8.5-10.1); CARBON DIOXIDE 41 mmol/L (21-32); CHLORIDE 97 mmol/L (98-107); CREATININE 0.3 mg/dL (0.6-1.0); GFR 246.4; GLUCOSE 140 mg/dL (70-99); POTASSIUM 3.6 mmol/L (3.5-5.1); SODIUM 137 mmol/L (136-145)
--- NOTE | 2021-07-22 07:05 | PDOC ---
[employer] PROGRESS NOTE Date of Service DOS: DATE: 07/22/21 TIME: 07:02 Chief Complaint Chief Complaint Acute hypoxic respiratory failure requiring BiPAP and subsequent intubation - due to COVID 19 with ARDS COVID-19 pneumonia Morbid obesity History of diabetes mellitus type 2 History of hypertension Severe malnutrition Septic shock Gram negative bacteremia - proteus History of Present Illness History of Present Illness 07/22/2021: No acute change overnight. Low-grade fever, T-max 99.9 F. On vent with FiO2 100%, PEEP 14. O2 saturations in the low 90s. Chest x-ray yesterday with essentially unchanged diffuse bilateral airspace opacities. Continue with IV antibiotics, per ID. Critically ill with poor chance of survival. Critical care time 30 minutes spent reviewing charts, reviewing labs, reviewing imaging, discussion with RN. 07/21/2021: Low-grade fever overnight, T-max 99.9 F. On vent with FiO2 100%, PEEP 14. O2 saturations remained mid to low 80s. Chest x-ray pending this afternoon. Continue with IV antibiotics, per ID. Critically ill with poor chance of survival. Critical care time 30 minutes spent reviewing charts, reviewing labs, reviewing imaging, discussion with RN. 07/20/2021: Tachycardic with low-grade fever this morning, T-max 100.2 F. On vent with FiO2 100%, PEEP 14. O2 saturations remain low 80s despite high vent settings. Critically ill, very poor prognosis. Continue with IV antibiotics, per ID. Critical care time 30 minutes spent reviewing charts, reviewing labs, reviewing imaging, discussion with RN. 07/19/2021: Afebrile. On ventilator with FiO2 100% and PEEP 13. O2 saturations are mid 80s despite high vent settings. Continue meropenem, Zyvox, and micafungin, per ID. Very critically ill, poor prognosis. Critical care time 30 minutes spent reviewing charts, reviewing labs, reviewing imaging, discussion with RN. 07/18/2021: Afebrile, no acute events overnight. On vent with FiO2 100%, PEEP 12. Will continue meropenem, Zyvox, and micafungin. Very critically ill, poor prognosis. Critical care time 30 minutes spent reviewing charts, reviewing labs, reviewing imaging, discussion with RN. 07/17/2021: Patient remains in ICU on vent with FiO2 100%, PEEP 12. Continue meropenem, Zyvox, and micafungin, per ID. Has been made DNR. Extremely critically ill. Critical care time 30 minutes spent reviewing charts, reviewing labs, reviewing imaging, discussed with RN. 07/16/2021 Patient seen and examined in the ICU Has OG feeds running at 40 cc an hour Still on the vent Pressure control 40 with 100% FiO2 and 12 of PEEP Her family is present I spent quite a bit of time discussing her prognosis with the family Currently sedated with Precedex propofol fentanyl Versed and also on IV paralytic (vecuronium) Has SCDs in place Has a rectal bag Has Mccall bedside drainage Chart reviewed Discussed with RN She remains extremely critically ill I am concerned she may not survive 07/15/2021 Patient seen and examined in the ICU She remains on the vent Pressure control of 40 with 100% FiO2 and 12 of PEEP rate of 20 OG feeds at 40 cc an hour Has rectal bag Mccall to bedside drainage She has SCDs on Sedated with propofol Precedex fentanyl Versed Also on IV vecuronium Has IV microfungi and hanging Discussed with RN Chart reviewed She remains extremely critically ill 07/14/2021 Patient seen and examined in the ICU She remains mechanically ventilated Pressure control with 40/1% FiO2 and 12 of PEEP and a rate of 20 Discussed with RN Chart reviewed Mccall bedside drainage Rectal bag in place She is still very critically ill 07/13/2021 patient seen and examined in the ICU she is still on the vent volume control of 40 with 100% FiO2 a rate of 20 and 12 of PEEP sedated with Precedex fentanyl and Versed has Mccall to bedside drainage rectal bag in place chart reviewed discussed with RN she remains extremely critically ill 07/12/2021 Patient seen and examined in the ICU Chart reviewed Discussed with RN Patient's white count has bumped up to 28,000 Currently on pressure support with 40 cm/h2o 100% FiO2 12 of PEEP and satting 81% She remains critically ill Ms Pierce is a transfer from [facility] in [facility], 40-year-old female with past medical history of diabetes, hypertension, dyslipidemia and morbid obesity who complains of shortness of breath 1 week ago and went to urgent care and found out that she was positive for Covid. She came in at 5:00 in the morning at [facility] is very hypoxic and was found to be her oxygen saturation was 68% she was put on a nonrebreather 15 L and she was improved to 90 to 93%. Patient is [id number]. Patient is a poor historian. She does not know what kind of medication she takes for her medical history. 06/15: In the ICU. She was face time talking with family members. She was still on nonrebreather. Pulmonary consulted. 06/16: On Vapotherm. No major complaints. 06/17: Remains on Vapotherm although O2 requirement decreasing. Continue current plan. 06/18: On 40 L Vapotherm and now requiring NRB in addition. Afebrile and on broad-spectrum antibiotics. Remdesivir finishes today. 06/19: Intubated overnight in ICU. Afebrile. Currently breathing FiO2 100%. Completed remdesivir. We will continue IV steroids and antibiotics. 06/20: Low-grade fever overnight (T-max 99.7 F). Remains on vent, FiO2 90%, PEEP 10. Continue treatment with IV steroids and antibiotics. 06/21: Afebrile. On vent with FiO2 80%, PEEP 10. Cont treatment with antibiotics steroids total of 10 day course (steroid taper to begin 06/24). 06/22: Afebrile. Remains on ventilator with FiO2 70%, PEEP 10. Completed rem desivir. Continue antibiotics, steroids with slow taper. 06/23: Afebrile. On vent with FiO2 of 70, PEEP 10. Continue antibiotics for diffuse bilateral opacities. Continue steroids with slow taper 06/24: Afebrile. On vent with FiO2 60%, PEEP 9. Continue antibiotics. Today is day 10 of steroids; will begin Solu-Medrol taper tomorrow. 06/25: On vent with FiO2 65, PEEP 9. Afebrile. Completed 10 days of steroids; will begin Solu-Medrol taper today at 60 mg twice daily. 06/26: Intubated and sedated vent at 20/450/70/9. Insulin dose to 10 units twice daily. Solu-Medrol decreased to 40 mg daily. Cont with IV Lasix 06/27: Intubated and sedated. Vent settings at assist control at saturating 97%. Vent settings set at 16/80/9. ABG at 7.4 /58/32. 06/28: No acute events overnight. Patient continues to be intubated and sedated. Saturating 90% on assist control with vent settings of 16/80/9. 06/29: No acute events overnight patient saturating 98% on vent settings of 10/80/9. 06/30: Patient did have hypotensive episode during the day which required a 500 NS bolus. Possibly needing vasopressors. pressure support/80/9. 07/01: No acute events overnight. Patient saturating 99% on vent settings of 14 pressure support/80/9. Urine output of 3.6 L in the last 24 hours. 07/02: Paralyzed for vent dysynchrony. Saturating 100% on 14/70/9. Fever of 101.1 this morning. 07/03: Febrile 101.1 F. 70% FiO2 and 9 PEEP. Still requiring vecuronium for vent dyssynchrony. ID consulted for sepsis, ?VAP 07/04: T-max 102.6 F last 24 hours, afebrile overnight. Peripheral culture and culture from PICC and sputum and urine culture obtained. Now on meropenem and Zyvox. More hypoxic, ABG 7.4 /48, requiring FiO2 90% PEEP of 9 07/05: Afebrile. ABG 7.3/66/60, FiO2 100% PEEP of 12. Sputum and blood cx proteus mirabilis. Urine with some yeast. Daughter bedside this morning noted she is thinking of withdrawing care. D/w patient's sister and nephew bedside patient has been aggressively cared for cont current care. 07/06: Afebrile overnight. Sedated on ventilator FiO2 100% PEEP 12, O2 saturation 90% on pulse oximetry, still requiring vecuronium for vent dyssynchrony. Labs pending. 07/07: Afebrile. Hb 9.4, ABG 2.97/65.8/54.7. Peak pressures over 50s pressure control currently paralyzed. Lasix on hold received albumin. Still requiring Levophed. CT abdomen pelvis pending. 07/08: Febrile to 100.6 F overnight. Vecuronium wean attempted and significantly dyssynchrony. Still requiring Levophed support. FiO2 100% 12 peak pressures in the 50s. Afebrile overnight. More hypoxic overnight, I:E ratio 2-1, paralyzed on vecuronium for dyssynchrony. FiO2 100% PEEP 12. WBC 10, Hb 8.1, platelets 314. Met with daughter, Lala, bedside and sister over the phone the continued decline and grim prognosis and they have requested DNR. 07/10/2021: Patient seen and examined in ICU. On pressure control of 40 with a rate of 20, 100% FiO2, and a PEEP of 12. SCD for DVT prophylaxis. Mccall to BSD. Rectal bag present. OG set at 40cc per hour. Sedated with fentanyl, propofol, and versed. On vecuronium drip. Triple lumen PICC line present on right arm. O2 saturation is still only 79%. Chest x-ray today showed stable life support devices and stable diffuse bilateral opacities. Discussed with RN. Chart reviewed. 07/11/2021 Patient seen and examined in the ICU He is still mechanically ventilated On pressure control with 100% FiO2 Mccall to BSD Rectal bag still present Sedated with propofol fentanyl and Versed Also has as needed vecuronium Her daughter is present I reviewed the case with her daughter extensively Chart reviewed Discussed with RN Patient is still critically ill Vitals/I&O Vitals/I&O: Vital Signs Date Time Temp Pulse Resp B/P (MAP) Pulse Ox O2 Delivery O2 Flow Rate FiO2 07/22/21 06:00 79 20 112/58 (76) 91 Ventilator 07/22/21 04:25 98.9 98.9 07/22/21 00:08 40.0 I & O 07/21/21 07/21/21 07/22/21 15:00 23:00 07:00 Intake Total 240 ml 1740 ml 1781 ml Output Total 1725 ml 440 ml 425 ml Balance -1485 ml 1300 ml 1356 ml Physical Exam Physical Exam: GENERAL: Sedated, orally intubated female, not in distress. HEENT: Both pupils are round and reacting. No conjunctival lesion. Mouth cannot be visualized, has orally intubated. NECK: Supple, no JVP, no lymphadenopathy. LUNGS: Clear. HEART: S1, S2 regular. ABDOMEN: Soft, nontender, no organomegaly. EXTREMITIES: No edema, cyanosis. SKIN: Unremarkable. NEUROLOGIC: The patient is sedated, intubated, neurologically unable to assess. General: No acute distress, Other (Intubated and sedated) Heart: Regular rate, Normal S1, Normal S2 Lungs: Crackles Abdomen: Normal bowel sounds, Soft Extremities: No clubbing, No edema, Normal pulses Skin: No rashes, No significant lesion Labs Labs: Laboratory Tests Test 07/21/21 16:25 07/21/21 23:08 07/22/21 05:11 07/22/21 05:40 Glucose (Fingerstick) 139 mg/dL (70-99) 133 mg/dL (70-99) 130 mg/dL (70-99) White Blood Count 12.0 x10^3/uL (4.0-11.0) Red Blood Count 3.35 x10^6/uL (3.50-5.40) Hemoglobin 8.4 g/dL (12.0-15.5) Hematocrit 26.0 % (36.0-47.0) Mean Corpuscular Volume 78 fL (79-100) Mean Corpuscular Hemoglobin 25 pg (25-35) Mean Corpuscular Hemoglobin Concent 32 g/dL (31-37) Red Cell Distribution Width 22.2 % (11.5-14.5) Platelet Count 317 x10^3/uL (140-400) Neutrophils (%) (Auto) 75 % (31-73) Lymphocytes (%) (Auto) 13 % (24-48) Monocytes (%) (Auto) 5 % (0-9) Eosinophils (%) (Auto) 6 % (0-3) Basophils (%) (Auto) 1 % (0-3) Neutrophils # (Auto) 9.0 x10^3/uL (1.8-7.7) Lymphocytes # (Auto) 1.6 x10^3/uL (1.0-4.8) Monocytes # (Auto) 0.6 x10^3/uL (0.0-1.1) Eosinophils # (Auto) 0.7 x10^3/uL (0.0-0.7) Basophils # (Auto) 0.2 x10^3/uL (0.0-0.2) Sodium Level 137 mmol/L (136-145) Potassium Level 3.6 mmol/L (3.5-5.1) Chloride Level 97 mmol/L (98-107) Carbon Dioxide Level 41 mmol/L (21-32) Anion Gap (6-14) Blood Urea Nitrogen 9 mg/dL (7-20) Creatinine 0.3 mg/dL (0.6-1.0) Estimated GFR (Cockcroft-Gault) 246.4 Glucose Level 140 mg/dL (70-99) Calcium Level 8.3 mg/dL (8.5-10.1) Comment Review of Relevant I have reviewed the following items man (where applicable) has been applied. Justifications for Admission Other Justification Acute hypoxic respiratory failure and Covid pneumonia CLAUDIO BORJA MD Jul 22, 2021 07:05
--- NOTE | 2021-07-22 07:56 | PDOC ---
Infectious Disease Note Subjective Subjective Intubated/ sedated ROS ROS No nausea vomiting diarrhea Vital Sign Vital Signs Vital Signs Date Time Temp Pulse Resp B/P (MAP) Pulse Ox O2 Delivery O2 Flow Rate FiO2 07/22/21 07:06 90 Ventilator 07/22/21 06:00 79 20 112/58 (76) 07/22/21 04:25 98.9 98.9 07/22/21 00:08 40.0 Physical Exam PHYSICAL EXAM GENERAL: Sedated, orally intubated female, not in distress. HEENT: Both pupils are round and reacting. No conjunctival lesion. Mouth cannot be visualized, has orally intubated. NECK: Supple, no JVP, no lymphadenopathy. LUNGS: Clear. HEART: S1, S2 regular. ABDOMEN: Soft, nontender, no organomegaly. EXTREMITIES: No edema, cyanosis. SKIN: Unremarkable. NEUROLOGIC: The patient is sedated, intubated, neurologically unable to assess. Labs Lab Laboratory Tests Test 07/21/21 16:25 07/21/21 23:08 07/22/21 05:11 07/22/21 05:40 Glucose (Fingerstick) 139 mg/dL (70-99) 133 mg/dL (70-99) 130 mg/dL (70-99) White Blood Count 12.0 x10^3/uL (4.0-11.0) Red Blood Count 3.35 x10^6/uL (3.50-5.40) Hemoglobin 8.4 g/dL (12.0-15.5) Hematocrit 26.0 % (36.0-47.0) Mean Corpuscular Volume 78 fL (79-100) Mean Corpuscular Hemoglobin 25 pg (25-35) Mean Corpuscular Hemoglobin Concent 32 g/dL (31-37) Red Cell Distribution Width 22.2 % (11.5-14.5) Platelet Count 317 x10^3/uL (140-400) Neutrophils (%) (Auto) 75 % (31-73) Lymphocytes (%) (Auto) 13 % (24-48) Monocytes (%) (Auto) 5 % (0-9) Eosinophils (%) (Auto) 6 % (0-3) Basophils (%) (Auto) 1 % (0-3) Neutrophils # (Auto) 9.0 x10^3/uL (1.8-7.7) Lymphocytes # (Auto) 1.6 x10^3/uL (1.0-4.8) Monocytes # (Auto) 0.6 x10^3/uL (0.0-1.1) Eosinophils # (Auto) 0.7 x10^3/uL (0.0-0.7) Basophils # (Auto) 0.2 x10^3/uL (0.0-0.2) Sodium Level 137 mmol/L (136-145) Potassium Level 3.6 mmol/L (3.5-5.1) Chloride Level 97 mmol/L (98-107) Carbon Dioxide Level 41 mmol/L (21-32) Anion Gap (6-14) Blood Urea Nitrogen 9 mg/dL (7-20) Creatinine 0.3 mg/dL (0.6-1.0) Estimated GFR (Cockcroft-Gault) 246.4 Glucose Level 140 mg/dL (70-99) Calcium Level 8.3 mg/dL (8.5-10.1) Micro Recent blood cultures negative Sputum culture is negative Objective Assessment 1. Fever 2. COVID-19 infection. 3. Pulmonary infiltrates. 4. Respiratory failure. 5. Leukocytosis. 6. Morbid obesity. 7 G neg camilo bacteremia Proteus 8. Urine culture 07/04 and 07/12 C albicans Plan Plan of Care Continue meropenem supportive care CT abd and pelvis unable to do Now DNR Prognosis poor ROBERTO HADDAD MD Jul 22, 2021 07:56
[2021-07-22] MEDS: FUROSEMIDE 40 MG/4 ML VIAL. IVP SCH (08:04)
[2021-07-22] MEDS: ACETAMINOPHEN 325 MG TABLET. PO PRN (08:04)
[2021-07-22] MEDS: ENOXAPARIN 40 MG/0.4 ML SYRINGE. SQ SCH ×2 (08:05→20:45)
[2021-07-22] MEDS: PANTOPRAZOLE IV PUSH 40 MG VIAL. IVP SCH (08:05)
[2021-07-22] MEDS: LISINOPRIL 5 MG TABLET. PO SCH (08:06)
[2021-07-22] MEDS: INSULIN GLARGINE SYRINGE. SQ SCH ×2 (10:28→20:48)
--- NOTE | 2021-07-22 20:32 | NUR ---
7A-7P attempted to titrate sed meds and vec down. Train obtained but HR increased w elevated BP. Meds adjusted to original rates. Remains too unstable to offload or turn. O2 remains labile w any disruption to patient. Digressing slowly.
[2021-07-23] VITALS (22 sets, daily range): BP systolic 61–169; BP diastolic 37–89
[2021-07-23] MEDS: DEXMEDETOMIDINE 400 MCG in IV NORMAL SALINE 100ML 96 ML IV PRN ×7 (00:57→19:48)
[2021-07-23] MEDS: NORCURON - VECURONIUM 50 MG in IV NORMAL SALINE 50ML 50 ML IV PRN ×4 (02:15→20:32)
[2021-07-23] MEDS: PROPOFOL 100 ML IV PRN ×2 (02:16→13:25)
[2021-07-23] MEDS: fentaNYL HIGH DOSE PCA 55 ML IV PRN (03:17)
[2021-07-23] MEDS: MIDAZOLAM 100mg/100ml NS BAG 100 ML IV PRN (04:58)
[2021-07-23] MEDS: MEROPENEM 1 GM in IV NORMAL SALINE 100ML 100 ML IV SCH ×2 (05:08→13:25)
--- NOTE | 2021-07-23 05:58 | RAD ---
EXAM: CHEST ONE VIEW. HISTORY: Hypoxia. COMPARISON: 07/21/2021. FINDINGS: A frontal view of the chest is obtained. An endotracheal tube has its tip 6 cm above the ca kylee. A right arm PICC line has its tip in the superior vena cava. A nasogastric tube has its tip bel ow the inferior margin of the view. There is a large right pneumothorax. Bilateral diffuse infiltrates are stable to increased. There is no clear pleural effusion. The heart is not enlarged. IMPRESSION: 1. New large right pneumothorax. 2. Stable to increased diffuse bilateral infiltrates. These findings were called to [facility] by Jatin Yen on 07/23/2021 at 5:50 AM. Electronically signed by: Fito Yen MD (07/23/2021 5:56 AM) [facility]
[2021-07-23] MEDS: INSULIN LISPRO 300 UNITS/3 ML VIAL. SQ SCH ×4 (06:00→17:42)
--- NOTE | 2021-07-23 06:22 | PDOC ---
[employer] PROGRESS NOTE Date of Service DOS: DATE: 07/23/21 TIME: 06:15 Chief Complaint Chief Complaint Acute hypoxic respiratory failure requiring BiPAP and subsequent intubation - due to COVID 19 with ARDS COVID-19 pneumonia Morbid obesity History of diabetes mellitus type 2 History of hypertension Severe malnutrition Septic shock Gram negative bacteremia - proteus Right pneumothorax (07/23) History of Present Illness History of Present Illness 07/23/2021: Low-grade fever overnight, T-max 100.0 F. On vent with FiO2 100%, PEEP 14. O2 saturations holding in upper 90s. Chest x-ray this morning showing new right pneumothorax. Chest tube was placed by pulmonology in ICU. Continue with IV antibiotics, per ID. Critically ill with poor prognosis. Critical care time 30 minutes spent reviewing charts, reviewing labs, reviewing imaging, discussion with RN. 07/22/2021: No acute change overnight. Low-grade fever, T-max 99.9 F. On vent with FiO2 100%, PEEP 14. O2 saturations in the low 90s. Chest x-ray yesterday with essentially unchanged diffuse bilateral airspace opacities. Continue with IV antibiotics, per ID. Critically ill with poor chance of survival. Critical care time 30 minutes spent reviewing charts, reviewing labs, reviewing imaging, discussion with RN. 07/21/2021: Low-grade fever overnight, T-max 99.9 F. On vent with FiO2 100%, PEEP 14. O2 saturations remained mid to low 80s. Chest x-ray pending this afternoon. Continue with IV antibiotics, per ID. Critically ill with poor chance of survival. Critical care time 30 minutes spent reviewing charts, reviewing labs, reviewing imaging, discussion with RN. 07/20/2021: Tachycardic with low-grade fever this morning, T-max 100.2 F. On vent with FiO2 100%, PEEP 14. O2 saturations remain low 80s despite high vent settings. Critically ill, very poor prognosis. Continue with IV antibiotics, per ID. Critical care time 30 minutes spent reviewing charts, reviewing labs, reviewing imaging, discussion with RN. 07/19/2021: Afebrile. On ventilator with FiO2 100% and PEEP 13. O2 saturations are mid 80s despite high vent settings. Continue meropenem, Zyvox, and micafungin, per ID. Very critically ill, poor prognosis. Critical care time 30 minutes spent reviewing charts, reviewing labs, reviewing imaging, discussion with RN. 07/18/2021: Afebrile, no acute events overnight. On vent with FiO2 100%, PEEP 12. Will continue meropenem, Zyvox, and micafungin. Very critically ill, poor prognosis. Critical care time 30 minutes spent reviewing charts, reviewing l abs, reviewing imaging, discussion with RN. 07/17/2021: Patient remains in ICU on vent with FiO2 100%, PEEP 12. Continue meropenem, Zyvox, and micafungin, per ID. Has been made DNR. Extremely critically ill. Critical care time 30 minutes spent reviewing charts, reviewing labs, reviewing imaging, discussed with RN. 07/16/2021 Patient seen and examined in the ICU Has OG feeds running at 40 cc an hour Still on the vent Pressure control 40 with 100% FiO2 and 12 of PEEP Her family is present I spent quite a bit of time discussing her prognosis with the family Currently sedated with Precedex propofol fentanyl Versed and also on IV par alytic (vecuronium) Has SCDs in place Has a rectal bag Has Mccall bedside drainage Chart reviewed Discussed with RN She remains extremely critically ill I am concerned she may not survive 07/15/2021 Patient seen and examined in the ICU She remains on the vent Pressure control of 40 with 100% FiO2 and 12 of PEEP rate of 20 OG feeds at 40 cc an hour Has rectal bag Mccall to bedside drainage She has SCDs on Sedated with propofol Precedex fentanyl Versed Also on IV vecuronium Has IV microfungi and hanging Discussed with RN Chart reviewed She remains extremely critically ill 07/14/2021 Patient seen and examined in the ICU She remains mechanically ventilated Pressure control with 40/1% FiO2 and 12 of PEEP and a rate of 20 Discussed with RN Chart reviewed Mccall bedside drainage Rectal bag in place She is still very critically ill 07/13/2021 patient seen and examined in the ICU she is still on the vent volume control of 40 with 100% FiO2 a rate of 20 and 12 of PEEP sedated with Precedex fentanyl and Versed has Mccall to bedside drainage rectal bag in place chart reviewed discussed with RN she remains extremely critically ill 07/12/2021 Patient seen and examined in the ICU Chart reviewed Discussed with RN Patient's white count has bumped up to 28,000 Currently on pressure support with 40 cm/h2o 100% FiO2 12 of PEEP and satting 81% She remains critically ill Ms Pierce is a transfer from [facility] in [facility], 40-year-old female with past medical history of diabetes, hypertension, dyslipidemia and morbid obesity who complains of shortness of breath 1 week ago and went to urgent care and found out that she was positive for Covid. She came in at 5:00 in the morning at [facility] is very hypoxic and was found to be her oxygen saturation was 68% she was put on a nonrebreather 15 L and she was improved to 90 to 93%. Patient is [id number]. Patient is a poor historian. She does not know what kind of medication she takes for her medical history. 06/15: In the ICU. She was face time talking with family members. She was still on nonrebreather. Pulmonary consulted. 06/16: On Vapotherm. No major complaints. 06/17: Remains on Vapotherm although O2 requirement decreasing. Continue current plan. 06/18: On 40 L Vapotherm and now requiring NRB in addition. Afebrile and on broad-spectrum antibiotics. Remdesivir finishes today. 06/19: Intubated overnight in ICU. Afebrile. Currently breathing FiO2 100%. Completed remdesivir. We will continue IV steroids and antibiotics. 06/20: Low-grade fever overnight (T-max 99.7 F). Remains on vent, FiO2 90%, PEEP 10. Continue treatment with IV steroids and antibiotics. 06/21: Afebrile. On vent with FiO2 80%, PEEP 10. Cont treatment with antibiotics steroids total of 10 day course (steroid taper to begin 06/24). 06/22: Afebrile. Remains on ventilator with FiO2 70%, PEEP 10. Completed remdesivir. Continue antibiotics, steroids with slow taper. 06/23: Afebrile. On vent with FiO2 of 70, PEEP 10. Continue antibiotics for diffuse bilateral opacities. Continue steroids with slow taper 06/24: Afebrile. On vent with FiO2 60%, PEEP 9. Continue antibiotics. Today is day 10 of steroids; will begin Solu-Medrol taper tomorrow. 06/25: On vent with FiO2 65, PEEP 9. Afebrile. Completed 10 days of steroids; will begin Solu-Medrol taper today at 60 mg twice daily. 06/26: Intubated and sedated vent at 20/450/70/9. Insulin dose to 10 units twice daily. Solu-Medrol decreased to 40 mg daily. Cont with IV Lasix 06/27: Intubated and sedated. Vent settings at assist control at saturating 97%. Vent settings set at 16/80/9. ABG at 7.4 8/58/32. 06/28: No acute events overnight. Patient continues to be intubated and sedated. Saturating 90% on assist control with vent settings of 16/80/9. 06/29: No acute events overnight patient saturating 98% on vent settings of 10/80/9. 06/30: Patient did have hypotensive episode during the day which required a 500 NS bolus. Possibly needing vasopressors. pressure support/80/9. 07/01: No acute events overnight. Patient saturating 99% on vent settings of 14 pressure support/80/9. Urine output of 3.6 L in the last 24 hours. 07/02: Paralyzed for vent dysynchrony. Saturating 100% on 14/70/9. Fever of 101.1 this morning. 07/03: Febrile 101.1 F. 70% FiO2 and 9 PEEP. Still requiring vecuronium for vent dyssynchrony. ID consulted for sepsis, ?VAP 07/04: T-max 102.6 F last 24 hours, afebrile overnight. Peripheral culture and culture from PICC and sputum and urine culture obtained. Now on meropenem and Zyvox. More hypoxic, ABG 7.4 57/48, requiring FiO2 90% PEEP of 9 07/05: Afebrile. ABG 7.3/66/60, FiO2 100% PEEP of 12. Sputum and blood cx proteus mirabilis. Urine with some yeast. Daughter bedside this morning noted she is thinking of withdrawing care. D/w patient's sister and nephew bedside patient has been aggressively cared for cont current care. 07/06: Afebrile overnight. Sedated on ventilator FiO2 100% PEEP 12, O2 saturation 90% on pulse oximetry, still requiring vecuronium for vent dyssynchrony. Labs pending. 07/07: Afebrile. Hb 9.4, ABG 2.97/65.8/54.7. Peak pressures over 50s pressure control currently paralyzed. Lasix on hold received albumin. Still requiring Levophed. CT abdomen pelvis pending. 07/08: Febrile to 100.6 F overnight. Vecuronium wean attempted and significantly dyssynchrony. Still requiring Levophed support. FiO2 100% 12 peak pressures in the 50s. Afebrile overnight. More hypoxic overnight, I:E ratio 2-1, paralyzed on vecuronium for dyssynchrony. FiO2 100% PEEP 12. WBC 10, Hb 8.1, platelets 314. Met with daughter, Lala, bedside and sister over the phone the continued decline and grim prognosis and they have requested DNR. 07/10/2021: Patient seen and examined in ICU. On pressure control of 40 with a rate of 20, 100% FiO2, and a PEEP of 12. SCD for DVT prophylaxis. Mccall to BSD. Rectal bag present. OG set at 40cc per hour. Sedated with fentanyl, propofol, and versed. On vecuronium drip. Triple lumen PICC line present on right arm. O2 saturation is still only 79%. Chest x-ray today showed stable life support devices and stable diffuse bilateral opacities. Discussed with RN. Chart reviewed. 07/11/2021 Patient seen and examined in the ICU He is still mechanically ventilated On pressure control with 100% FiO2 Mccall to BSD Rectal bag still present Sedated with propofol fentanyl and Versed Also has as needed vecuronium Her daughter is present I reviewed the case with her daughter extensively Chart reviewed Discussed with RN Patient is still critically ill Vitals/I&O Vitals/I&O: Vital Signs Date Time Temp Pulse Resp B/P (MAP) Pulse Ox O2 Delivery O2 Flow Rate FiO2 07/23/21 05:00 99.8 129 20 155/83 (107) 57 Ventilator 99.8 I & O 07/22/21 07/22/21 07/23/21 15:00 23:00 07:00 Intake Total 320 ml Output Total 600 ml 650 ml 525 ml Balance -280 ml -650 ml -525 ml Physical Exam Physical Exam: GENERAL: Sedated, orally intubated female, not in distress. HEENT: Both pupils are round and reacting. No conjunctival lesion. Mouth cannot be visualized, has orally intubated. NECK: Supple, no JVP, no lymphadenopathy. LUNGS: Clear. HEART: S1, S2 regular. ABDOMEN: Soft, nontender, no organomegaly. EXTREMITIES: No edema, cyanosis. SKIN: Unremarkable. NEUROLOGIC: The patient is sedated, intubated, neurologically unable to assess. General: No acute distress, Other (Intubated and sedated) Heart: Regular rate, Normal S1, Normal S2 Lungs: Crackles, Other (Right chest tube in place with waterseal) Abdomen: Normal bowel sounds, Soft Extremities: No clubbing, No edema, Normal pulses Skin: No rashes, No significant lesion Labs Labs: Laboratory Tests Test 07/22/21 14:33 07/23/21 00:06 Glucose (Fingerstick) 116 mg/dL (70-99) 116 mg/dL (70-99) Comment Review of Relevant I have reviewed the following items man (where applicable) has been applied. Justifications for Admission Other Justification Acute hypoxic respiratory failure and Covid pneumonia CLAUDIO BORJA MD Jul 23, 2021 06:22
--- NOTE | 2021-07-23 06:53 | RAD ---
EXAM: CHEST ONE VIEW. HISTORY: Chest tube placement. COMPARISON: 07/23/2021. FINDINGS: A frontal view of the chest is obtained. A right chest tube is now in place. The right pneu mothorax is now small. An endotracheal tube has its tip 4 cm above the narcisa. A nasogastric tube has its tip below the infe rior margin of the view. A right arm PICC line has its tip in the superior vena cava. Bilateral diffuse infiltrates persist. There is no clear pleural effusion. The heart is not enlarged. IMPRESSION: 1. The right pneumothorax is small status post chest tube placement. Electronically signed by: Fito Yen MD (07/23/2021 6:50 AM) [facility]
--- NOTE | 2021-07-23 06:55 | PDOC ---
PULMONARY PROGRESS NOTES DATE: 07/23/21 TIME: 06:53 Subjective on vent sedated PEEP to 14 fio2 100 sat dropped to 30s. She is currently on pressure control inverse ratio ventilation. sedated on versed, fentanyl, precedex, prop vec gtt Vitals Vital Signs Date Time Temp Pulse Resp B/P (MAP) Pulse Ox O2 Delivery O2 Flow Rate FiO2 07/23/21 06:00 131 20 140/78 (98) 76 Ventilator 07/23/21 05:00 99.8 99.8 Comments ros unable to obtain on vent sedated HEENT: Other (nc at perrl orally intubated nose clear neck no lad no thyromegaly) Lungs: Other (b lat diminished ) Cardiovascular: S1, S2 Abdomen: Soft Extremities: No Edema Skin: Warm Labs Laboratory Tests Test 07/21/21 16:25 07/21/21 23:08 07/22/21 05:11 07/22/21 05:40 Glucose (Fingerstick) 139 mg/dL (70-99) 133 mg/dL (70-99) 130 mg/dL (70-99) White Blood Count 12.0 x10^3/uL (4.0-11.0) Red Blood Count 3.35 x10^6/uL (3.50-5.40) Hemoglobin 8.4 g/dL (12.0-15.5) Hematocrit 26.0 % (36.0-47.0) Mean Corpuscular Volume 78 fL (79-100) Mean Corpuscular Hemoglobin 25 pg (25-35) Mean Corpuscular Hemoglobin Concent 32 g/dL (31-37) Red Cell Distribution Width 22.2 % (11.5-14.5) Platelet Count 317 x10^3/uL (140-400) Neutrophils (%) (Auto) 75 % (31-73) Lymphocytes (%) (Auto) 13 % (24-48) Monocytes (%) (Auto) 5 % (0-9) Eosinophils (%) (Auto) 6 % (0-3) Basophils (%) (Auto) 1 % (0-3) Neutrophils # (Auto) 9.0 x10^3/uL (1.8-7.7) Lymphocytes # (Auto) 1.6 x10^3/uL (1.0-4.8) Monocytes # (Auto) 0.6 x10^3/uL (0.0-1.1) Eosinophils # (Auto) 0.7 x10^3/uL (0.0-0.7) Basophils # (Auto) 0.2 x10^3/uL (0.0-0.2) Sodium Level 137 mmol/L (136-145) Potassium Level 3.6 mmol/L (3.5-5.1) Chloride Level 97 mmol/L (98-107) Carbon Dioxide Level 41 mmol/L (21-32) Anion Gap (6-14) Blood Urea Nitrogen 9 mg/dL (7-20) Creatinine 0.3 mg/dL (0.6-1.0) Estimated GFR (Cockcroft-Gault) 246.4 Glucose Level 140 mg/dL (70-99) Calcium Level 8.3 mg/dL (8.5-10.1) Test 07/22/21 14:33 07/23/21 00:06 Glucose (Fingerstick) 116 mg/dL (70-99) 116 mg/dL (70-99) Laboratory Tests Test 07/22/21 14:33 07/23/21 00:06 Glucose (Fingerstick) 116 mg/dL (70-99) 116 mg/dL (70-99) Medications Active Scripts Medications Dose Route/Sig Max Daily Dose Days Date Category Cyclobenzaprine Hcl 10 Mg Tablet 10 Mg PO TID 06/15/21 Reported Meloxicam 15 Mg Tablet 15 Mg PO DAILY 06/15/21 Reported Fluticasone Propionate Nasal [place] (Fluticasone Propionate) 16 Gm [place].susp 1 [place] NS DAILY 06/15/21 Reported Loratadine 10 Mg Tablet 10 Mg PO DAILY 06/15/21 Reported Furosemide 20 Mg Tablet 20 Mg PO DAILY 06/15/21 Reported Gabapentin (Gabapentin) 300 Mg Capsule 300 Mg PO TID 06/15/21 Reported Gabapentin (Gabapentin) 300 Mg Capsule 300 Mg PO TID 06/15/21 Reported Lisinopril 5 Mg Tablet 1 Tab PO DAILY 06/15/21 Reported Metformin Hcl 500 Mg Tablet 500 Mg PO BIDWMEALS 06/15/21 Reported Ozempic (Semaglutide) 0.25 Mg/0.2 Ml Pen.injctr 0.25 Mg SQ WEEKLY 06/15/21 Reported Comments stat cxr r ptx b lat infilt Chest x-ray reviewed 07/21/2021. Diffuse interstitial infiltrates with no significant pleural effusion. This is compatible with ARDS. Chest x-ray reviewed 07/19/2021. Diffuse interstitial infiltrates with total white out both lungs consistent with ARDS Chest x-ray reviewed 07/17/2021. Diffuse infiltrates consistent with ARDS with mild worsening CXR 07/14/21 IMPRESSION: Diffuse pulmonary opacities bilaterally without interval improvement. Impression . 1. Acute hypoxic respiratory failure secondary to ARDS/COVID-19 infection, worsening intubated 06/19/21. Continue to have severe ARDS. With severe persistent hypoxia despite increasing PEEP up to 14. 2. Abnormal CT of chest secondary to COVID-19 infection/ARDS 3. Diabetes type 2 with hyperglycemia 4. Hypotension, secondary to sepsis--resolved 5. Hyperlipdemia 6. Obesity 7. sepsis with Proteus mirabilis bacteremia and pneumonia 8. Proteus mirabilis in the sputum. Repeat sputum culture negative. 9 staph in the blood, no new positive cultures on latest cultures 10 r ptx Plan . Updated 07/23/21 walked to room sat in 50s ordered stat cxr large r ptx will place chest tube emergency Continue current vent support, change to ac as his plateau pressure is in 50s on ac plateau pressure 30 low vt unfortunately she has severe ards after ct sat up to 70s ct functional will give lasix 20 mg iv prognosis cont to be very poor cxr post ct small ptx increased suction to -35 Continue ABX per ID PT. is DNR DVT/GI PPX D/W RN and RT called daughter x2 no answer Very poor prognosis, minimal chance of survival. dr cristian caldera daughter in detail . Explained to her poor prognosis and unlikely chance of survival. She understands that. Continue present care. critically ill cct 40 min no overlap excluding procedure Updated 07/22/21 Continue current vent support, setting reviewed, currently PC mode, inverse ratio ventilation and 100% PEEP of 14. Oxygen saturation 89-90% Patient's chances of survival are very very low. Would not escalate any further PEEP. Chest x-ray without any evidence of barotrauma. Continue ABX per ID Follow CXR/ ABG --as needed. PT. is DNR DVT/GI PPX D/W RN and RT Very poor prognosis, minimal chance of survival. We will continue present care. dr foster d/w daughter in detail . Explained to her poor prognosis and unlikely chance of survival. She understands that. Continue present care. Updated 07/21/21 Continue current vent support, currently PC mode, inverse ratio ventilation and 100% increase PEEP of 14. Oxygen saturation remained in the mid to high 70s. Patient's chances of survival are very minimal. Would not escalate any further PEEP. Chest x-ray without any evidence of barotrauma. Continue ABX per ID Follow CXR/ ABG --as needed. PT. is DNR DVT/GI PPX D/W RN and RT Very poor prognosis, minimal chance of survival. We will continue present care. d/w daughter in detail . Explained to her poor prognosis and unlikely chance of survival. She understands that. Continue present care. Updated 07/20/21 Continue current vent support, currently PC mode, inverse ratio ventilation and 100% increase PEEP of 14. Oxygen saturation remained in the mid to high 80s. Patient's chances of survival are very minimal. Would not escalate any further PEEP. Chest x-ray without any evidence of barotrauma. Continue ABX per ID Follow CXR/ ABG --as needed. PT. is DNR DVT/GI PPX D/W RN and RT Very poor prognosis, minimal chance of survival. We will continue present care. d/w daughter in detail 07/19/2021. Explained to her poor prognosis and unlikely chance of survival. She understands that. Continue present care Updated 07/19/21 Continue current vent support, currently PC mode, inverse ratio ventilation and 100% increase PEEP of 14. Oxygen saturation remained in the mid to high 80s. Patient's chances of survival are very minimal. Would not escalate any further PEEP. Chest x-ray without any evidence of barotrauma. Continue ABX per ID Follow CXR/ ABG --as needed. PT. is DNR DVT/GI PPX D/W RN and RT Very poor prognosis, minimal chance of survival. We will continue present care. Will reach out to the family and informed them about the patient's critical condition addend: d/w daughter in detail Updated 07/18/21 Continue current vent support, currently PC mode and 100% increase PEEP to 13 t sandra Avoid further barotrauma. Continue ABX per ID Follow CXR/ ABG --as needed. PT. is DNR DVT/GI PPX D/W RN and RT Very poor prognosis, minimal chance of survival. We will continue present care. Chest x-ray continues to have significant infiltrates bilaterally with mild worsening Updated 07/17/21 Continue current vent support, currently PC mode and 100% and PEEP of 12. Would not escalate PEEP any further. Continue ABX per ID Follow CXR/ ABG --as needed. PT. is now a DNR DVT/GI PPX D/W RN and RT Very poor prognosis, minimal chance of survival. We will continue present aggressive care. Chest x-ray continues to have significant infiltrates bilaterally with mild worsening Updated 07/16/21 Continue current vent support, currently PC mode and 100% and PEEP of 12 Would not escalate PEEP any further. Continue ABX per ID Follow CXR/ ABG --as needed. PT. is now a DNR DVT/GI PPX D/W RN and RT Very poor prognosis, minimal chance of survival. We will continue present aggressive care. Updated 07/15/21 Continue current vent support, currently PC mode and 100% and PEEP of 12 Would not escalate PEEP any further. Continue ABX per ID Follow CXR/ ABG --as needed. PT. is now a DNR DVT/GI PPX D/W RN and RT Very poor prognosis, likely not to survive Updated 07/14/21 Continue current vent support, currently PC mode and 100% and PEEP of 12 Continue ABX per ID Follow CXR/ ABG -- no changes today PT. is now a DNR DVT/GI PPX D/W RN and RT Very poor prognosis likely not to survive Updated 07/13 Continue current support Antibiotics per ID No significant improvement this past week Case discussed with family several days ago Family informed that patient may not survive Replace potassium Chest x-ray from 07/12 was reviewed 07/12 Continue current support Antibiotics per ID Long-term prognosis is poor ALANNAH CARTER MD Jul 23, 2021 06:55
--- NOTE | 2021-07-23 08:08 | PDOC ---
Infectious Disease Note Subjective Subjective Intubated/ sedated Pneumothorax had chest tube placement Vital Sign Vital Signs Vital Signs Date Time Temp Pulse Resp B/P (MAP) Pulse Ox O2 Delivery O2 Flow Rate FiO2 07/23/21 06:00 131 20 140/78 (98) 76 Ventilator 07/23/21 05:00 99.8 99.8 Physical Exam PHYSICAL EXAM GENERAL: Sedated, orally intubated female, not in distress. HEENT: Both pupils are round and reacting. No conjunctival lesion. Mouth cannot be visualized, has orally intubated. NECK: Supple, no JVP, no lymphadenopathy. LUNGS: Clear. HEART: S1, S2 regular. ABDOMEN: Soft, nontender, no organomegaly. EXTREMITIES: No edema, cyanosis. SKIN: Unremarkable. NEUROLOGIC: The patient is sedated, intubated, neurologically unable to assess. Labs Lab Laboratory Tests Test 07/22/21 14:33 07/23/21 00:06 07/23/21 07:18 Glucose (Fingerstick) 116 mg/dL (70-99) 116 mg/dL (70-99) 147 mg/dL (70-99) Micro Recent blood cultures negative Sputum culture is negative Objective Assessment 1. Fever 2. COVID-19 infection. 3. Pulmonary infiltrates. 4. Respiratory failure. 5. Leukocytosis. 6. Morbid obesity. 7 G neg camilo bacteremia Proteus 8. Urine culture 07/04 and 07/12 C albicans 9 pneumothorax s/p chest tube placement Plan Plan of Care Continue meropenem supportive care CT abd and pelvis unable to do Now DNR Prognosis poor ROBERTO HADDAD MD Jul 23, 2021 08:08
[2021-07-23] MEDS: FUROSEMIDE 40 MG/4 ML VIAL. IVP SCH (08:23)
[2021-07-23] MEDS: LISINOPRIL 5 MG TABLET. PO SCH (08:23)
--- NOTE | 2021-07-23 08:30 | NUR ---
Pts daughter and sister updated on pts condition. Right lung collapsed and chest tube had been placed and O2 sats are in the 50-60's. Dr. Zhao attempted to call daughter but there was no answer and voicemail box has not been set up. Family will call to check on pt throughout the day.
[2021-07-23 08:38] LABS: BASE EXCESS ABG 2 mmol/L (-3-3); HCO3 ABG 30 mmol/L (21-28)
[2021-07-23 08:46] LABS: PCO2 ABG 60 mmHg (35-46)
[2021-07-23 08:47] LABS: FIO2 ABG 100; PO2 ABG 33 mmHg (75-108); SAT O2 ABG 49 % (92-99)
[2021-07-23] MEDS: INSULIN GLARGINE SYRINGE. SQ SCH (09:31)
--- NOTE | 2021-07-23 11:01 | OP ---
DATE OF SURGERY: 07/23/2021 PROCEDURE: Right chest tube placement. INDICATION FOR PROCEDURE: Large right pneumothorax. ANESTHESIA: The patient is currently on sedation and also paralyzed. The procedure was done under emergent situation. DESCRIPTION OF PROCEDURE: time out was called. Right chest area was prepped and draped in a sterile fashion. Then, a 2 cm incision was made on right mid axillary fifth intercostal space on the skin. Unfortunately, she has body mass index of 56.6,so there was about 10 inches of subcutaneous tissue/fat, finally able to touch a rib and was able to go to intercostal space 5 with a Sadie with her very thick subcutaneous fat and tissue, was very hard to introduce the chest tube with the help of a Sadie. The chest tube was entered to pleural space. A gush of fluid and air came out, was connected to Pleur-evac and suction. Pleural variation was noted. Chest tube was secured with silk 0, then Vaseline gauze was placed around the chest tube and 4 x 4 was placed around it and taped. A stat portable chest x-ray was done. Chest tube was in good position, small ptx noted suction increased The patient tolerated the procedure well. There were no obvious complications. AMOL DR: Kailyn TID: [id number] [facility]
--- NOTE | 2021-07-24 00:09 | RAD ---
Study: XR CHEST 1V Indication: Chest tube placement. Comparison: 07/23/2021 at 0610 hours Findings: Endotracheal tube tip terminating 4 cm above the narcisa. Enteric tube tip and sidehole are within the stomach. Right chest tube with the tip located medially at the level of the right fifth rib. Right s ided PICC terminates within the SVC. Redemonstration of a right-sided pneumothorax appearing slightly larger noting differences in patient positioning. Laterally the pneumothorax measures approximately 2.1 cm transverse. Approximately 2.3 cm between the visceral line at the apex and the undersurface of the first rib. No pneumothorax on the left. Redemonstrated bilateral opacities with more confluent opacification on the right and improved aeration at the left upper lung. Impression: 1. Support device positioning as outlined above. 2. Slightly increased small right pneumothorax considering differences in patient positioning. A ches t tube again terminates medially at the right upper lung at the level of the fifth rib. Electronically signed by: TRA MAXWELL MD (07/24/2021 12:06 AM) [facility]
--- NOTE | 2021-07-24 03:11 | NUR ---
At approx 2015 patient's saturations began dropping rapidly. Chest x-ray was obtained, however patient's condition continued to deteriorate rapidly and patient at 2218. Family notified, Sabina Zhao and Lisa notified. Family declined an autopsy and [facility] [place], [place]. Body released to [facility], no belongings present.
--- NOTE | 2021-07-24 10:29 | PDOC3 ---
Discharge Summary Visit Information Date of Admission: Jun 14, 2021 Date of Discharge: Jul 23, 2021 Brief Hospital Course Allergies Allergies Coded Allergies Type Severity Reaction Last Updated Verified No Known Drug Allergies 06/14/21 No Vital Signs Vital Signs Date Time Temp Pulse Resp B/P (MAP) Pulse Ox O2 Delivery O2 Flow Rate FiO2 07/23/21 22:00 54 30 61/37 (45) 50 Ventilator 07/23/21 20:00 99.6 99.6 Lab Results Laboratory Tests Test 07/22/21 14:33 07/23/21 00:06 07/23/21 07:18 07/23/21 08:19 Glucose (Fingerstick) 116 mg/dL (70-99) 116 mg/dL (70-99) 147 mg/dL (70-99) O2 Saturation 49 % (92-99) Arterial Blood pH 7.31 (7.35-7.45) Arterial Blood pCO2 at Patient Temp 60 mmHg (35-46) Arterial Blood pO2 at Patient Temp 33 mmHg (75-108) Arterial Blood HCO3 30 mmol/L (21-28) Arterial Blood Base Excess 2 mmol/L (-3-3) FiO2 100 Test 07/23/21 11:32 07/23/21 17:40 Glucose (Fingerstick) 136 mg/dL (70-99) 126 mg/dL (70-99) Laboratory Tests Test 07/23/21 11:32 07/23/21 17:40 Glucose (Fingerstick) 136 mg/dL (70-99) 126 mg/dL (70-99) Brief Hospital Course Acute hypoxic respiratory failure requiring BiPAP and subsequent intubation - due to COVID 19 with ARDS COVID-19 pneumonia Morbid obesity History of diabetes mellitus type 2 History of hypertension Severe malnutrition Septic shock Gram negative bacteremia - proteus Right pneumothorax (07/23) Ms Pierce is a transfer from [facility] in [facility], 40-year-old female with past medical history of diabetes, hypertension, dyslipidemia and morbid obesity who complains of shortness of breath 1 week ago and went to urgent care and found out that she was positive for Covid. She came in at 5:00 in the morning at [facility] is very hypoxic and was found to be her oxygen saturation was 68% she was put on a nonrebreather 15 L and she was improved to 90 to 93%. Patient is [id number]. Patient is a poor historian. She does not know what kind of medication she takes for her medical history. 06/15: In the ICU. She was face time talking with family members. She was still on nonrebreather. Pulmonary consulted. 06/16: On Vapotherm. No major complaints. 06/17: Remains on Vapotherm although O2 requirement decreasing. Continue current plan. 06/18: On 40 L Vapotherm and now requiring NRB in addition. Afebrile and on broad-spectrum antibiotics. Remdesivir finishes today. 06/19: Intubated overnight in ICU. Afebrile. Currently breathing FiO2 100%. Completed remdesivir. We will continue IV steroids and antibiotics. 06/20: Low-grade fever overnight (T-max 99.7 F). Remains on vent, FiO2 90%, PEEP 10. Continue treatment with IV steroids and antibiotics. 06/21: Afebrile. On vent with FiO2 80%, PEEP 10. Cont treatment with antibiotics steroids total of 10 day course (steroid taper to begin 06/24). 06/22: Afebrile. Remains on ventilator with FiO2 70%, PEEP 10. Completed re mdesivir. Continue antibiotics, steroids with slow taper. 06/23: Afebrile. On vent with FiO2 of 70, PEEP 10. Continue antibiotics for diffuse bilateral opacities. Continue steroids with slow taper 06/24: Afebrile. On vent with FiO2 60%, PEEP 9. Continue antibiotics. Today is day 10 of steroids; will begin Solu-Medrol taper tomorrow. 06/25: On vent with FiO2 65, PEEP 9. Afebrile. Completed 10 days of steroids; will begin Solu-Medrol taper today at 60 mg twice daily. 06/26: Intubated and sedated vent at 20/450/70/9. Insulin dose to 10 units twice daily. Solu-Medrol decreased to 40 mg daily. Cont with IV Lasix 06/27: Intubated and sedated. Vent settings at assist control at saturating 97%. Vent settings set at 16/80/9. ABG at 7.4 843/58/32. 06/28: No acute events overnight. Patient continues to be intubated and sedated. Saturating 90% on assist control with vent settings of 16/80/9. 06/29: No acute events overnight patient saturating 98% on vent settings of 10/80/9. 06/30: Patient did have hypotensive episode during the day which required a 500 NS bolus. Possibly needing vasopressors. pressure support/80/9. 07/01: No acute events overnight. Patient saturating 99% on vent settings of 14 pressure support/80/9. Urine output of 3.6 L in the last 24 hours. 07/02: Paralyzed for vent dysynchrony. Saturating 100% on 14/70/9. Fever of 101.1 this morning. 07/03: Febrile 101.1 F. 70% FiO2 and 9 PEEP. Still requiring vecuronium for vent dyssynchrony. ID consulted for sepsis, ?VAP 07/04: T-max 102.6 F last 24 hours, afebrile overnight. Peripheral culture and culture from PICC and sputum and urine culture obtained. Now on meropenem and Z yvox. More hypoxic, ABG 7.4 /48, requiring FiO2 90% PEEP of 9 07/05: Afebrile. ABG 7.3/66/60, FiO2 100% PEEP of 12. Sputum and blood cx proteus mirabilis. Urine with some yeast. Daughter bedside this morning noted she is thinking of withdrawing care. D/w patient's sister and nephew bedside patient has been aggressively cared for cont current care. 07/06: Afebrile overnight. Sedated on ventilator FiO2 100% PEEP 12, O2 saturation 90% on pulse oximetry, still requiring vecuronium for vent dyssynchrony. Labs pending. 07/07: Afebrile. Hb 9.4, ABG 2.97/65.8/54.7. Peak pressures over 50s pressure control currently paralyzed. Lasix on hold received albumin. Still requiring Levophed. CT abdomen pelvis pending. 07/08: Febrile to 100.6 F overnight. Vecuronium wean attempted and significantly dyssynchrony. Still requiring Levophed support. FiO2 100% 12 peak pressures in the 50s. Afebrile overnight. More hypoxic overnight, I:E ratio 2-1, paralyzed on vecuronium for dyssynchrony. FiO2 100% PEEP 12. WBC 10, Hb 8.1, platelets 314. Met with daughter, Lala, bedside and sister over the phone the continued decline and grim prognosis and they have requested DNR. 07/10/2021: Patient seen and examined in ICU. On pressure control of 40 with a rate of 20, 100% FiO2, and a PEEP of 12. SCD for DVT prophylaxis. Mccall to BSD. Rectal bag present. OG set at 40cc per hour. Sedated with fentanyl, propofol, and versed. On vecuronium drip. Triple lumen PICC line present on right arm. O2 saturation is still only 79%. Chest x-ray today showed stable life support devices and stable diffuse bilateral opacities. Discussed with RN. Chart reviewed. 07/11/2021 Patient seen and examined in the ICU He is still mechanically ventilated On pressure control with 100% FiO2 Mccall to BSD Rectal bag still present Sedated with propofol fentanyl and Versed Also has as needed vecuronium Her daughter is present I reviewed the case with her daughter extensively Chart reviewed Discussed with RN Patient is still critically ill 07/23/2021: Low-grade fever overnight, T-max 100.0 F. On vent with FiO2 100%, PEEP 14. O2 saturations holding in upper 90s. Chest x-ray this morning showing new right pneumothorax. Chest tube was placed by pulmonology in ICU. Continue with IV antibiotics, per ID. Critically ill with poor prognosis. Critical care time 30 minutes spent reviewing charts, reviewing labs, reviewing imaging, discussion with RN. 07/22/2021: No acute change overnight. Low-grade fever, T-max 99.9 F. On vent with FiO2 100%, PEEP 14. O2 saturations in the low 90s. Chest x-ray yesterday with essentially unchanged diffuse bilateral airspace opacities. Continue with IV antibiotics, per ID. Critically ill with poor chance of survival. Critical care time 30 minutes spent reviewing charts, reviewing labs, reviewing imaging, discussion with RN. 07/21/2021: Low-grade fever overnight, T-max 99.9 F. On vent with FiO2 100%, PEEP 14. O2 saturations remained mid to low 80s. Chest x-ray pending this afternoon. Continue with IV antibiotics, per ID. Critically ill with poor chance of survival. Critical care time 30 minutes spent reviewing charts, reviewing labs, reviewing imaging, discussion with RN. 07/20/2021: Tachycardic with low-grade fever this morning, T-max 100.2 F. On vent with FiO2 100%, PEEP 14. O2 saturations remain low 80s despite high vent settings. Critically ill, very poor prognosis. Continue with IV antibiotics, per ID. Critical care time 30 minutes spent reviewing charts, reviewing labs, reviewing imaging, discussion with RN. 07/19/2021: Afebrile. On ventilator with FiO2 100% and PEEP 13. O2 saturations are mid 80s despite high vent settings. Continue meropenem, Zyvox, and micafungin, per ID. Very critically ill, poor prognosis. Critical care time 30 minutes spent reviewing charts, reviewing labs, reviewing imaging, discussion with RN. 07/18/2021: Afebrile, no acute events overnight. On vent with FiO2 100%, PEEP 12. Will continue meropenem, Zyvox, and micafungin. Very critically ill, poor prognosis. Critical care time 30 minutes spent reviewing charts, reviewing labs, reviewing imaging, discussion with RN. 07/17/2021: Patient remains in ICU on vent with FiO2 100%, PEEP 12. Continue meropenem, Zyvox, and micafungin, per ID. Has been made DNR. Extremely critically ill. Critical care time 30 minutes spent reviewing charts, reviewing labs, reviewing imaging, discussed with RN. 07/16/2021 Patient seen and examined in the ICU Has OG feeds running at 40 cc an hour Still on the vent Pressure control 40 with 100% FiO2 and 12 of PEEP Her family is present I spent quite a bit of time discussing her prognosis with the family Currently sedated with Precedex propofol fentanyl Versed and also on IV paralytic (vecuronium) Has SCDs in place Has a rectal bag Has Mccall bedside drainage Chart reviewed Discussed with RN She remains extremely critically ill I am concerned she may not survive 07/15/2021 Patient seen and examined in the ICU She remains on the vent Pressure control of 40 with 100% FiO2 and 12 of PEEP rate of 20 OG feeds at 40 cc an hour Has rectal bag Mccall to bedside drainage She has SCDs on Sedated with propofol Precedex fentanyl Versed Also on IV vecuronium Has IV microfungi and hanging Discussed with RN Chart reviewed She remains extremely critically ill 07/14/2021 Patient seen and examined in the ICU She remains mechanically ventilated Pressure control with 40/1% FiO2 and 12 of PEEP and a rate of 20 Discussed with RN Chart reviewed Mccall bedside drainage Rectal bag in place She is still very critically ill 07/13/2021 patient seen and examined in the ICU she is still on the vent volume control of 40 with 100% FiO2 a rate of 20 and 12 of PEEP sedated with Precedex fentanyl and Versed has Mccall to bedside drainage rectal bag in place chart reviewed discussed with RN she remains extremely critically ill 07/12/2021 Patient seen and examined in the ICU Chart reviewed Discussed with RN Patient's white count has bumped up to 28,000 Currently on pressure support with 40 cm/h2o 100% FiO2 12 of PEEP and satting 81% She remains critically ill Discharge Information Condition at Discharge: / Disposition/Orders: Scheduled Cyclobenzaprine Hcl (Cyclobenzaprine Hcl) 10 Mg Tablet, 10 MG PO TID for pain, (Reported) Entered as Reported by: ZACKARY STUBBS RN on 06/15/211448 Last Taken: Unknown Dose on 06/15/21 Last Action: New Order on 06/15/211448 by ZACKARY STUBBS RN Fluticasone Propionate (Fluticasone Propionate Nasal Charlotte) 16 Gm Charlotte.susp, 1 SPRAY NS DAILY for allergy, #1 Ref 11 (Reported) Entered as Reported by: ZACKARY STUBBS RN on 06/15/211448 Last Taken: Unknown Dose on 06/15/21 Last Action: New Order on 06/15/211448 by ZACKARY STUBBS RN Furosemide (Furosemide) 20 Mg Tablet, 20 MG PO DAILY for HTN, (Reported) Entered as Reported by: ZACKARY STUBBS RN on 06/15/211448 Last Taken: Unknown Dose on 06/15/21 Last Action: New Order on 06/15/211448 by ZACKARY STUBBS RN Gabapentin (Gabapentin ) 300 Mg Capsule, 300 MG PO TID for NEUROGENIC PAIN, (Reported) Entered as Reported by: DEEDEE CRANE on 06/15/21 0645 Last Action: Continued on 06/15/21 0732 by DUNG FRANCO MD Gabapentin (Gabapentin ) 300 Mg Capsule, 300 MG PO TID for NEUROGENIC PAIN, (Reported) Entered as Reported by: DEEDEE CRANE on 06/15/21644 Last Taken: Unknown Dose on 06/14/21 Last Action: HELD on 06/15/21731 by DUNG FRANCO MD Lisinopril (Lisinopril) 5 Mg Tablet, 1 TAB PO DAILY for HTN, #30 Ref 5 (Reported) Entered as Reported by: DEEDEE CRANE on 06/15/21644 Last Taken: Unknown Dose on 06/14/21 Last Action: Continued on 06/15/21731 by DUNG FRANCO MD Loratadine (Loratadine) 10 Mg Tablet, 10 MG PO DAILY for allergy, (Reported) Entered as Reported by: ZACKARY STUBBS RN on 06/15/211448 Last Taken: Unknown Dose on 06/15/21 Last Action: New Order on 06/15/211448 by ZACKARY STUBBS RN Meloxicam (Meloxicam) 15 Mg Tablet, 15 MG PO DAILY for pain, (Reported) Entered as Reported by: ZACKARY STUBBS RN on 06/15/211448 Last Taken: Unknown Dose on 06/15/21 Last Action: New Order on 06/15/211448 by ZACKARY STUBBS RN Metformin Hcl (Metformin Hcl) 500 Mg Tablet, 500 MG PO BIDWMEALS for ANTI- DIABETIC, Ref 0 (Reported) Entered as Reported by: DEEDEE CRANE on 06/15/21644 Last Taken: Unknown Dose on 06/14/21 Last Action: HELD on 06/15/21731 by DUNG FRANCO MD Semaglutide (Ozempic) 0.25 Mg/0.2 Ml Pen.injctr, 0.25 MG SQ WEEKLY for DM, (Reported) Entered as Reported by: DEEDEE CRANE on 06/15/21644 Last Taken: Unknown Dose on 06/14/21 Last Action: HELD on 06/15/21731 by DUNG FRANCO MD Justicifation of Admission Dx: Justifications for Admission: Justification of Admission Dx: Yes CLADUIO BORJA MD Jul 24, 2021 10:29
== END 2021-07-23 22:18 | DRG 207 ==
LOC: 1 WEST ICU 19:15
PROVIDERS: ADMIT Internal Medicine; ATTEND Internal Medicine
PROC: 0BH17EZ Insertion of Endotracheal Airway into Trachea, Via Natural or Artificial Opening (ICD-10-PCS; 2021-06-14)
PROC: 5A0955A Assistance with Respiratory Ventilation, Greater than 96 Consecutive Hours, High Flow/Velocity Cannula (ICD-10-PCS; 2021-06-14)
PROC: XW033E5 Introduction of Remdesivir Anti-infective into Peripheral Vein, Percutaneous Approach, New Technology Group 5 (ICD-10-PCS; 2021-06-15)
PROC: 5A1955Z Respiratory Ventilation, Greater than 96 Consecutive Hours (ICD-10-PCS; 2021-06-19)
PROC: 30233N1 Transfusion of Nonautologous Red Blood Cells into Peripheral Vein, Percutaneous Approach (ICD-10-PCS; 2021-07-06)
PROC: 02HV33Z Insertion of Infusion Device into Superior Vena Cava, Percutaneous Approach (ICD-10-PCS; 2021-07-06)
PROC: 0W9930Z Drainage of Right Pleural Cavity with Drainage Device, Percutaneous Approach (ICD-10-PCS; principal; 2021-07-23)
DX: U07.1 COVID-19 (principal); A41.59 Other Gram-negative sepsis; E43 Unspecified severe protein-calorie malnutrition; J12.82 Pneumonia due to coronavirus disease 2019; J96.01 Acute respiratory failure with hypoxia; R65.21 Severe sepsis with septic shock; J93.9 Pneumothorax, unspecified; Z68.43 Body mass index [BMI] 50.0-59.9, adult; E11.65 Type 2 diabetes mellitus with hyperglycemia; E66.01 Morbid (severe) obesity due to excess calories; E78.5 Hyperlipidemia, unspecified; I10 Essential (primary) hypertension; Z66 Do not resuscitate; Z79.2 Long term (current) use of antibiotics; Z79.84 Long term (current) use of oral hypoglycemic drugs; Z79.899 Other long term (current) drug therapy
CPT/HCPCS: 36415; 36430; 36569; 36600; 71045; 74018; 80048; 80053; 81001; 82040; 82805; 82962; 83615; 83735; 84100; 84132; 84145; 84478; 85007; 85025; 85027; 86140; 86850; 86900; 86901; 86920; 87040; 87070; 87077; 87086; 87106; 87186; 87205; 87493; 94002; 94003; 94640; 94660; 94760; C9113; J0330; J1650; J1815; J1885; J1940; J2020; J2185; J2248; J2250; J2543; J2704; J2920; J2930; J3010; J3475; J3480; J3490; J7030; J7040; J7050; J7060; P9016; P9045; G0378